=== PATIENT | female | born 1945 | race African-American/Black ===

== ENCOUNTER 2016-11-19 20:46 | Inpatient (IN) | payer MEDICARE, OTHER ==
[~2016-11-19] VITALS: Ht 160 cm; Wt 80.3 kg
[2016-11-19] MEDS ORDERED: TRAMADOL HCL50 MG ORAL (20:56)
[2016-11-19] MEDS ORDERED: FOLIC ACID1 MG ORAL (20:56)
[2016-11-19] MEDS ORDERED: TRAZODONE HCL150 MG ORAL (20:56)
[2016-11-19] MEDS ORDERED: METOPROLOL TART50 M1 ORAL (20:56)
[2016-11-19] MEDS ORDERED: PAXIL20 MG ORAL (20:56)
[2016-11-19] MEDS ORDERED: ATORVASTATIN CA80 MG ORAL (20:56)
[2016-11-19] MEDS ORDERED: GABAPENTIN300 MG ORAL (20:56)
[2016-11-19] MEDS ORDERED: DIOVAN80 MG ORAL (20:56)
[2016-11-19] MEDS ORDERED: MIRTAZAPINE15 MG ORAL (20:56)
[2016-11-19] MEDS ORDERED: SULFASALAZINE500 MG ORAL (20:56)
[2016-11-19] MEDS ORDERED: NORMODYNE200 MG ORAL (20:56)
[2016-11-19] MEDS ORDERED: ATIVAN0.5 MG ORAL (20:56)
[2016-11-19] MEDS ORDERED: ADALAT20 MG ORAL (20:56)
[2016-11-19] MEDS ORDERED: METHOTREXATE2.5 MG PO (20:56)
[2016-11-19] MEDS ORDERED: BENAZEPRIL HCL40 MG ORAL (20:56)
[2016-11-19] MEDS ORDERED: ACETAMINOPHEN325 M1 ORAL (20:56)
[2016-11-19] MEDS ORDERED: HYDRALAZINE HCL10 MG ORAL (20:56)
[2016-11-19] MEDS ORDERED: OMEPRAZOLE20 M2 ORAL (20:56)
[2016-11-19 21:06] VITALS: BP 152/112
[2016-11-19] MEDS ORDERED: Ertapenem 1 GM in NS 55 ML IV ONE (21:15)
--- NOTE | 2016-11-19 21:26 | Emergency Room Report ---
History of Present Illness General Chief Complaint: General Complaint Source: Patient, Medical Record Present Illness HPI Is a 71-year-old female who is a senior living. She has a history of CVA, A. fib on Coumadin. She presents with chief complaint of urinary tract infection. She grew out ESBL Escherichia coli that is resistant to oral medication. She's been on several courses of medication. Patient herself has dementia and history is limited. She denies any complaint. Is no fever or chills. No nausea no vomiting. Allergies: Coded Allergies: No Known Allergies (Unverified , 04/30/16) Patient History Past Medical History: see triage record, old chart reviewed, HTN, AFib Past Surgical History: other Pertinent Family History: none Social History: Denies: smoking Now: No Immunizations: UTD Reviewed Nursing Documentation: PMH: Agreed, PSxH: Agreed Nursing Documentation-PMH Hx Cardiac Problems: Yes - Endocarditis and Heart Valve disorder, A fib, TIA, HF Hx Hypertension: Yes - Hyperlipidemia Hx Gastrointestinal Problems: Yes - GERD History Of Psychiatric Problem: Yes - Major depressive disorder, psychosis, anxiety, dementia Review of Systems Eye: Denies: blurred vision, eye pain ENT: Denies: ear pain, nose congestion, throat swelling Respiratory: Denies: cough, shortness of breath Cardiovascular: Denies: chest pain, palpitations Gastrointestinal: Denies: abdominal pain, diarrhea, nausea, vomiting Musculoskeletal: Denies: back pain, joint pain Skin: Denies: rash Neurological: Denies: headache, numbness Endocrine: Denies: increased thirst, increased urine Hematologic/Lymphatic: Denies: easy bruising All Other Systems: negative except mentioned in HPI Physical Exam Vital Signs Date Time Temp Pulse Resp B/P Pulse Ox O2 Delivery O2 Flow Rate FiO2 11/19/16 20:38 97.5 80 14 160/108 95 Room Air bottles with hypertension Sp02 EP Interpretation: reviewed, normal General Appearance: well appearing, no apparent distress, alert Head: normocephalic, atraumatic Eyes: bilateral eye EOMI, bilateral eye PERRL ENT: hearing grossly normal, normal pharynx Neck: full range of motion, supple, no meningismus Respiratory: chest non-tender, lungs clear, normal breath sounds Cardiovascular #1: no murmur, irregularly irregular Gastrointestinal: normal bowel sounds, non tender, no mass, no organomegaly, no bruit, non-distended Musculoskeletal: back normal, normal range of motion Neurologic: grossly normal Psychiatric: mood/affect normal Skin: warm/dry Procedures Central Line Central Line : Consent: Verbal Central Line Lumen: triple Maximal Sterile Barrier Tech: yes cap, yes mask, yes sterile gown, yes sterile gloves, yes large sterile sheet, yes hand hygiene, yes chlorhexidine prep No Max Barrier Tech Because: other - IV access Central Line Postion: femoral (R) Anesthesia: local cc's of anesthesia: 5 Complications: none Central Line Post Position: sutured, good blood return Attempts: One Patient Tolerated: Well Complications: None Medical Decision Making Diagnostic Impression: Primary Impression: Urinary tract infection due to ESBL Klebsiella Additional Impressions: Atrial fibrillation, chronic Proteinuria Qualified Codes: R80.9 - Proteinuria, unspecified ER Course Patient with ESBL UTI. This was from a culture few days ago. I place her on Invanz. She is otherwise stable for admission. She IV antibiotics. Wanted to Dr. Ford since he admits for Dr. Solano. patient is very poor IV access. Her neck is very stiff and short. Was not comfortable try to get an IV in her neck baseline anatomy. I used an ultrasound and was able initially to get an IV in her left upper arm. It infiltrated. Because of the knee for IV antibiotics I place a right femoral triple-lumen. Patient tolerated procedure without a problem. Lab Results Impression labs unremarkable EKG Diagnostic Results EKG Time: 21:25 EP Interpretation: no Rate: normal Rhythm: other - afib ST Segments: no acute changes Rhythm Strip Diag. Results Rhythm Strip Time: 21:26 EP Interpretation: yes Rate: 85 Rhythm: no PVC's, no ectopy, other - afib Chest X-Ray Diagnostic Results Chest X-Ray Ordered: Yes # of Views/Limited/Complete: 1 View Interpretation: no consolidation, no effusion, no pneumothorax, no acute cardiopulmonary disease Indication: Chest Pain Impression: No acute disease Date Electronically Signed: Nov 19, 2016 Time Electronically Signed: 21:25 Interpreting ER Physician: Jaxon Don MD Last Vital Signs Date Time Temp Pulse Resp B/P Pulse Ox O2 Delivery O2 Flow Rate FiO2 11/19/16 21:06 70 16 152/112 Room Air 11/19/16 20:38 97.5 95 Status: improved Disposition: ADMITTED INPATIENT Condition: Serious JAXON DON M.D. Nov 19, 2016 21:26
[2016-11-19] MEDS ORDERED: Ertapenem (INVanz) Inj ONE (22:47)
[2016-11-19 23:00] VITALS: BP 165/103
[2016-11-19] MEDS ORDERED: Nitroglycerin Subl 0.4mg tab (Bottle Of 25) SL PRN (23:00)
[2016-11-19] MEDS ORDERED: DuoNeb 0.5-3(2.5)mg/3ml neb HHN PRN (23:00)
[2016-11-19] MEDS ORDERED: Morphine Sulfate 2mg/ml Inj IVP PRN (23:00)
[2016-11-19] MEDS ORDERED: Miralax 17gm pkt ORAL PRN (23:00)
[2016-11-19 23:12] LABS: BASOPHILS % (AUTO) 1.3 % (0.0-2.0); EOSINOPHILS % (AUTO) 3.6 % (0.0-3.0); LYMPHOCYTES % (AUTO) 39.8 % (20.0-45.0); MEAN CORPUSCULAR HEMOGLOBIN 27.9 PG (27.0-31.0); MEAN CORPUSCULAR VOLUME 85 FL (80-99); MEAN PLATELET VOLUME 7.5 FL (6.5-10.1); MONOCYTES % (AUTO) 8.3 % (1.0-10.0); PLATELET COUNT 222 K/UL (150-450); RED BLOOD COUNT 4.86 M/UL (4.20-5.40); RED CELL DISTRIBUTION WIDTH 15.3 % (11.6-14.8); WHITE BLOOD COUNT 5.6 K/UL (4.8-10.8)
[2016-11-19 23:23] LABS: INR 2.7 (0.9-1.1); PROTHROMBIN TIME 28.1 SEC (9.30-11.50)
[2016-11-19 23:24] LABS: TROPONIN I < 0.30 ng/mL (<=0.30)
[2016-11-19 23:27] LABS: ALANINE AMINOTRANSFERASE 24 U/L (3-33); ALBUMIN/GLOBULIN RATIO 0.4 (1.0-2.7); ANION GAP 15 (5-15); ASPARTATE AMINO TRANSFERASE 45 U/L (5-40); CALCIUM 8.6 mg/dL (8.6-10.2); CARBON DIOXIDE 25 mEQ/L (20-30); CHLORIDE 98 mEQ/L (98-107); CREATININE 0.8 mg/dL (0.5-0.9); HEMOLYSIS 3; POTASSIUM 3.8 mEQ/L (3.4-4.9); SODIUM 138 mEQ/L (135-145); TOTAL PROTEIN 8.1 g/dL (6.6-8.7)
[2016-11-19 23:38] LABS: CKMB < 1.5 ng/mL (< 3.8)
[2016-11-20] VITALS (8 sets, daily range): BP systolic 110–161; BP diastolic 68–101
[2016-11-20 00:17] LABS: KETONES,URINE NEGATIVE (NEGATIVE); LEUKOCYTE ESTERASE ,URINE 2+ (NEGATIVE); NITRITE,URINE NEGATIVE (NEGATIVE); PH,URINE 6 (4.5-8.0); PROTEIN,URINE 3+ (NEGATIVE); UROBILINOGEN,URINE NORMAL MG/DL (0.0-1.0)
[2016-11-20 00:18] LABS: APPEARANCE,URINE SLIGHTLY CLOUDY
[2016-11-20 00:31] LABS: BACTERIA,URINE FEW /HPF; RBC,URINE TNTC /HPF (0 - 2); SQUAMOUS EPITHELIAL CELL,UR FEW /LPF (NONE/OCC)
[2016-11-20] MEDS: Labetalol 200mg tab ORAL SCH ×4 (02:27→18:46)
[2016-11-20] MEDS: HydrALAZINE 10mg Tab ORAL SCH ×4 (02:27→18:46)
[2016-11-20] MEDS ORDERED: SulfASALAZine 500MG tab ORAL SCH (06:30)
[2016-11-20 07:30] LABS: BASOPHILS % (AUTO) 0.7 % (0.0-2.0); EOSINOPHILS % (AUTO) 3.1 % (0.0-3.0); MEAN CORPUSCULAR HEMOGLOBIN 28.5 PG (27.0-31.0); MEAN CORPUSCULAR HGB CONC 33.2 G/DL (32.0-36.0); MEAN CORPUSCULAR VOLUME 86 FL (80-99); MEAN PLATELET VOLUME 7.3 FL (6.5-10.1); MONOCYTES % (AUTO) 8.3 % (1.0-10.0); NEUTROPHILS % (AUTO) 47.9 % (45.0-75.0); PLATELET COUNT 214 K/UL (150-450); RED BLOOD COUNT 4.66 M/UL (4.20-5.40); RED CELL DISTRIBUTION WIDTH 15.6 % (11.6-14.8); WHITE BLOOD COUNT 6.8 K/UL (4.8-10.8)
[2016-11-20] MEDS: Metoprolol 50mg tab ORAL SCH ×2 (09:00→22:44)
[2016-11-20] MEDS ORDERED: Heparin 5000 units/ml inj SUBQ SCH (09:00)
--- NOTE | 2016-11-20 10:25 | Diagnostic Imaging Report ---
Indications: Cough Technique: Portable AP chest Findings: Comparison: None Inspiratory effort is suboptimal. Cardiac silhouette enlarged. Early calcification overlies left side of heart. Pulmonary vasculature within normal limits. Visualized portions of lungs and pleura clear. Thoracic aorta calcified, elongated, ectatic. Disc marginal osteophytes in thoracic, upper lumbar spine. Bilateral humeral heads subluxed cephalad, narrowing the subacromial spaces with chronic remodeling deformity. Left glenohumeral joint is narrowed with marginal osteophyte formation. Moderate gaseous distention of stomach. IMPRESSION: No evidence of acute cardiopulmonary disease, limited as described. Basal abnormalities may be missed. Upright PA and lateral chest radiographs with better inspiratory effort and optimal technique recommended for more complete evaluation. Cardiomegaly suggests cardiomyopathy. Evidence of associated mitral valvular versus annular calcification. Underlying pericardial effusion not excludable. Aortosclerosis and probable chronic hypertensive change. Associated aneurysm not excludable. Degenerative spondylosis Left glenohumeral degenerative arthropathy Chronic insufficiency bilateral rotator cuff Nonspecific gaseous distention of stomach. Consider nasogastric tube placement as clinically indicated.
[2016-11-20] MEDS: Meropenem 1 GM in NS 110 ML IVPB SCH ×2 (10:26→22:43)
[2016-11-20 11:37] LABS: ALANINE AMINOTRANSFERASE 29 U/L (3-33); ALBUMIN/GLOBULIN RATIO 0.4 (1.0-2.7); ANION GAP 15 (5-15); ASPARTATE AMINO TRANSFERASE 51 U/L (5-40); CALCIUM 8.5 mg/dL (8.6-10.2); CARBON DIOXIDE 23 mEQ/L (20-30); CHLORIDE 101 mEQ/L (98-107); CREATININE 0.8 mg/dL (0.5-0.9); HEMOLYSIS 3; POTASSIUM 3.7 mEQ/L (3.4-4.9); SODIUM 139 mEQ/L (135-145); TOTAL PROTEIN 7.3 g/dL (6.6-8.7)
--- NOTE | 2016-11-20 15:16 | History and Physical ---
History of Present Illness General Date patient seen: Nov 20, 2016 Reason for Hospitalization: General Complaint Present Illness HPI 71-year-old female with hx of Depression, dementia, HTN , Afib, CVA [facility] presented with chief complaint of urinary tract infection. She grew out ESBL Escherichia coli that is resistant to oral medication. She's been on several courses of medication. Patient herself has dementia and history is limited. She denies any complaint. Is no fever or chills. No nausea no vomiting. She is admitted for treatment of MDR, refractory Urosepsis. Allergies: Coded Allergies: No Known Allergies (Unverified , 04/30/16) Medication History Scheduled Atorvastatin Calcium* (Lipitor*), 80 MG ORAL BEDTIME, (Reported) Benazepril Hcl* (Benazepril Hcl*), 40 MG ORAL TWICE A DAY, (Reported) Folic Acid* (Folic Acid*), 1 MG ORAL DAILY, (Reported) Gabapentin* (Gabapentin*), 300 MG ORAL DAILY, (Reported) Hydralazine Hcl* (Hydralazine Hcl*), 10 MG ORAL EVERY 6 HOURS, (Reported) Labetalol HCl (Labetalol HCl), 200 MG ORAL Q6HR, (Reported) Lorazepam* (Ativan*), 0.5 MG ORAL THREE TIMES A DAY, (Reported) Metoprolol Tartrate* (Metoprolol Tartrate*), 50 MG ORAL EVERY 12 HOURS, ( Reported) Mirtazapine* (Remeron*), 15 MG ORAL BEDTIME, (Reported) Nifedipine (Nifedipine*), 30 MG ORAL EVERY 12 HOURS, (Reported) Omeprazole (Omeprazole), 20 MG ORAL DAILY, (Reported) Paroxetine Hcl* (Paxil*), 20 MG ORAL DAILY, (Reported) Sulfasalazine* (Azulfidine*), 500 MG ORAL BEFORE MEALS, (Reported) Trazodone* (Trazodone*), 12.5 MG ORAL BEDTIME, (Reported) Valsartan (Diovan), 80 MG ORAL DAILY, (Reported) Scheduled PRN Acetaminophen* (Acetaminophen 325MG Tablet*), 650 MG ORAL Q4H PRN for For Pain, (Reported) Tramadol Hcl* (Ultram*), 50 MG ORAL Q4HR PRN for For Pain, (Reported) Miscellaneous Medications Methotrexate Sodium* (Methotrexate*), 2.5 MG PO, (Reported) Patient History Healthcare decision maker Isiah Jimmy Resuscitation status Full Code Advanced Directive on File Past Medical/Surgical History Past Medical/Surgical History: (1) HTN (hypertension) (2) Dementia (3) Depression (4) Atrial fibrillation, chronic Review of Systems All Other Systems: negative except mentioned in HPI Physical Exam General Appearance: WD/WN Lines, tubes and drains: peripheral HEENT: normocephalic, atraumatic Neck: non-tender, normal alignment Respiratory/Chest: chest wall non-tender, lungs clear, normal breath sounds Breasts: no masses Cardiovascular/Chest: normal peripheral pulses Abdomen: normal bowel sounds Genitourinary/Rectal: normal genital exam Extremities: normal range of motion Skin Exam: normal pigmentation Last 24 Hour Vital Signs Date Time Temp Pulse Resp B/P Pulse Ox O2 Delivery O2 Flow Rate FiO2 11/20/16 13:04 70 147/86 11/20/16 13:04 147/86 11/20/16 12:21 97.7 70 16 147/86 97 Room Air 11/20/16 09:04 110/73 11/20/16 09:00 83 110/73 11/20/16 08:38 97.5 83 14 110/73 100 Room Air 11/20/16 07:32 87 18 Room Air 11/20/16 05:47 77 161/99 11/20/16 05:47 161/99 11/20/16 04:00 97.0 77 19 161/99 95 Room Air 11/20/16 02:27 78 155/92 11/20/16 02:27 155/92 11/20/16 02:17 97.2 78 18 155/92 100 Room Air 11/20/16 01:31 86 16 150/96 98 Room Air 11/20/16 01:10 98.7 86 16 150/96 98 Room Air 11/20/16 00:00 86 15 141/101 97 Room Air 11/19/16 23:00 73 15 165/103 99 Room Air 11/19/16 21:06 70 16 152/112 Room Air 11/19/16 20:38 97.5 80 14 160/108 95 Room Air Intake and Output 11/19/16 11/20/16 19:00 07:00 Intake Total 0 ml Output Total 500 ml Balance -500 ml Intake Oral 0 ml Output Urine Total 500 ml Laboratory Tests Test 11/19/16 22:30 11/19/16 23:50 11/20/16 05:00 11/20/16 11:10 White Blood Count 5.6 K/UL (4.8-10.8) 6.8 K/UL (4.8-10.8) Red Blood Count 4.86 M/UL (4.20-5.40) 4.66 M/UL (4.20-5.40) Hemoglobin 13.6 G/DL (12.0-16.0) 13.3 G/DL (12.0-16.0) Hematocrit 41.2 % (37.0-47.0) 40.0 % (37.0-47.0) Mean Corpuscular Volume 85 FL (80-99) 86 FL (80-99) Mean Corpuscular Hemoglobin 27.9 PG (27.0-31.0) 28.5 PG (27.0-31.0) Mean Corpuscular Hemoglobin Concent 33.0 G/DL (32.0-36.0) 33.2 G/DL (32.0-36.0) Red Cell Distribution Width 15.3 % (11.6-14.8) H 15.6 % (11.6-14.8) H Platelet Count 222 K/UL (150-450) 214 K/UL (150-450) Mean Platelet Volume 7.5 FL (6.5-10.1) 7.3 FL (6.5-10.1) Neutrophils (%) (Auto) 47.0 % (45.0-75.0) 47.9 % (45.0-75.0) Lymphocytes (%) (Auto) 39.8 % (20.0-45.0) 40.0 % (20.0-45.0) Monocytes (%) (Auto) 8.3 % (1.0-10.0) 8.3 % (1.0-10.0) Eosinophils (%) (Auto) 3.6 % (0.0-3.0) H 3.1 % (0.0-3.0) H Basophils (%) (Auto) 1.3 % (0.0-2.0) 0.7 % (0.0-2.0) Prothrombin Time 28.1 SEC (9.30-11.50) H Prothromb Time International Ratio 2.7 (0.9-1.1) H Activated Partial Thromboplast Time 43 SEC (23-33) H Sodium Level 138 mEQ/L (135-145) 139 mEQ/L (135-145) Potassium Level 3.8 mEQ/L (3.4-4.9) 3.7 mEQ/L (3.4-4.9) Chloride Level 98 mEQ/L (98-107) 101 mEQ/L (98-107) Carbon Dioxide Level 25 mEQ/L (20-30) 23 mEQ/L (20-30) Anion Gap 15 (5-15) 15 (5-15) Blood Urea Nitrogen 19 mg/dL (7-23) 16 mg/dL (7-23) Creatinine 0.8 mg/dL (0.5-0.9) 0.8 mg/dL (0.5-0.9) Estimat Glomerular Filtration Rate mL/min (>60) mL/min (>60) Glucose Level 122 mg/dL (74-106) H 104 mg/dL (74-106) Lactic Acid Level 1.20 mmol/L (0.66-2.22) Calcium Level 8.6 mg/dL (8.6-10.2) 8.5 mg/dL (8.6-10.2) L Total Bilirubin < 0.2 mg/dL (0.0-1.2) < 0.2 mg/dL (0.0-1.2) Aspartate Amino Transf (AST/SGOT) 45 U/L (5-40) H 51 U/L (5-40) H Alanine Aminotransferase (ALT/SGPT) 24 U/L (3-33) 29 U/L (3-33) Alkaline Phosphatase 222 U/L (35-104) H 226 U/L (35-104) H Total Creatine Kinase 38 U/L (26-140) Creatine Kinase MB < 1.5 ng/mL (< 3.8) Creatine Kinase MB Relative Index 3.9 Troponin I < 0.30 ng/mL (<=0.30) Total Protein 8.1 g/dL (6.6-8.7) 7.3 g/dL (6.6-8.7) Albumin 2.6 g/dL (3.5-5.2) L 2.4 g/dL (3.5-5.2) L Globulin 5.5 g/dL 4.9 g/dL Albumin/Globulin Ratio 0.4 (1.0-2.7) L 0.4 (1.0-2.7) L Urine Color Yellow Urine Appearance Slightly cloudy Urine pH 6 (4.5-8.0) Urine Specific [place] 1.015 (1.005-1.035) Urine Protein 3+ (NEGATIVE) H Urine Glucose (UA) Negative (NEGATIVE) Urine Ketones Negative (NEGATIVE) Urine Occult Blood 5+ (NEGATIVE) H Urine Nitrite Negative (NEGATIVE) Urine Bilirubin Negative (NEGATIVE) Urine Urobilinogen Normal MG/DL (0.0-1.0) Urine Leukocyte Esterase 2+ (NEGATIVE) H Urine RBC Tntc /HPF (0 - 2) H Urine WBC 10-15 /HPF (0 - 2) H Urine Squamous Epithelial Cells Few /LPF (NONE/OCC) Urine Bacteria Few /HPF (NONE) Height (Feet): 5 Height (Inches): 3.00 Weight (Pounds): 177 Medications Current Medications Medications (Trade) Dose Ordered Sig/Renea Route PRN Reason Start Time Stop Time Status Last Admin Dose Admin Acetaminophen (Tylenol) 650 mg Q4H PRN ORAL fever 11/19/16 23:00 12/19/16 22:59 Albuterol/ Ipratropium (DuoNeb 0.5-3(2.5)mg/3ml) 3 ml EVERY 4 HOURS PRN HHN Shortness of Breath 11/19/16 23:00 11/24/16 22:59 Atorvastatin Calcium (Lipitor) 80 mg BEDTIME ORAL 11/20/16 21:00 12/20/16 20:59 Benazepril HCl (Lotensin) 40 mg TWICE A DAY ORAL 11/20/16 09:00 12/20/16 08:59 11/20/16 09:04 Gabapentin (Neurontin) 300 mg DAILY ORAL 11/20/16 09:00 12/20/16 08:59 11/20/16 09:03 Hydralazine HCl (Apresoline) 10 mg EVERY 6 HOURS ORAL 11/20/16 00:00 12/20/16 00:00 11/20/16 13:04 Labetalol HCl (Normodyne) 200 mg Q6HR ORAL 11/20/16 00:00 12/20/16 00:00 11/20/16 13:04 Meropenem/Sodium Chloride (Merrem/Sodium Chloride) 110 ml @ 220 mls/hr Q12H IVPB 11/20/16 09:00 11/25/16 08:59 11/20/16 10:26 Metoprolol Tartrate (Lopressor) 50 mg EVERY 12 HOURS ORAL 11/20/16 09:00 12/20/16 08:59 Mirtazapine (Remeron) 15 mg BEDTIME ORAL 11/20/16 21:00 12/20/16 20:59 Morphine Sulfate (Morphine Sulfate) 2 mg EVERY 4 HOURS PRN IVP Moderate Pain (Pain Scale 4-6) 11/19/16 23:00 11/26/16 22:59 Nitroglycerin 0.4 mg 0.4 mg Every 5 Minutes PRN SL Prn Chest Pain 11/19/16 23:00 12/19/16 22:59 Ondansetron HCl (Zofran) 4 mg Q6H PRN IVP Nausea & Vomiting 11/19/16 23:00 12/19/16 22:59 Polyethylene Glycol (Miralax) 17 gm DAILYPRN PRN ORAL Constipation 11/19/16 23:00 12/19/16 22:59 Temazepam (Restoril) 15 mg HSPRN PRN ORAL Insomnia 11/19/16 23:00 11/26/16 22:59 Trazodone HCl (Desyrel) 12.5 mg BEDTIME ORAL 11/20/16 21:00 12/20/16 20:59 Assessment/Plan Problem List: (1) Urinary tract infection due to ESBL Klebsiella ICD Codes: N39.0 - Urinary tract infection, site not specified; B96.89 - Other specified bacterial agents as the cause of diseases classified elsewhere SNOMED: 904415483 (2) Atrial fibrillation, chronic ICD Codes: I48.2 - Chronic atrial fibrillation SNOMED: 021166518 (3) Dementia ICD Codes: F03.90 - Unspecified dementia without behavioral disturbance SNOMED: 46555340 (4) Depression ICD Codes: F32.9 - Major depressive disorder, single episode, unspecified SNOMED: 62046242 (5) HTN (hypertension) ICD Codes: I10 - Essential (primary) hypertension SNOMED: 22560944 Assessment/Plan IV antibiotics check cultures coumadin by pharmacy psych evaluation for dementia and depression MAURICIO WILDE Nov 20, 2016 15:16
[2016-11-20] MEDS ORDERED: NS 275ml ONE (16:38)
[2016-11-20] MEDS ORDERED: TraZODone HCl 25 mg tablet ORAL SCH (21:00)
[2016-11-20] MEDS: Atorvastatin 80mg tab ORAL SCH (22:44)
[2016-11-21] VITALS: BP 124/90
[2016-11-21] MEDS: Labetalol 200mg tab ORAL SCH ×4 (01:10→18:28)
[2016-11-21] MEDS: HydrALAZINE 10mg Tab ORAL SCH ×4 (01:11→18:28)
[2016-11-21 04:00] VITALS: BP 122/78
[2016-11-21 08:19] VITALS: BP 121/67
[2016-11-21] MEDS: Metoprolol 50mg tab ORAL SCH ×2 (09:00→20:31)
[2016-11-21] MEDS: Meropenem 1 GM in NS 110 ML IVPB SCH ×2 (09:52→20:30)
[2016-11-21 11:12] VITALS: BP 134/84
--- NOTE | 2016-11-21 13:05 | Pulmonology Progress Note ---
Assessment/Plan Problems: (1) Urinary tract infection due to ESBL Klebsiella (2) Atrial fibrillation, chronic (3) Dementia (4) Depression (5) HTN (hypertension) Assessment/Plan continue abx check cultures check labs dvt prophylaxis Subjective Interval Events: no new complains Allergies: Coded Allergies: No Known Allergies (Unverified , 04/30/16) Objective Last 24 Hour Vital Signs Date Time Temp Pulse Resp B/P Pulse Ox O2 Delivery O2 Flow Rate FiO2 11/21/16 12:31 134/84 11/21/16 12:30 77 134/84 11/21/16 11:12 97.3 77 16 134/84 98 Room Air 11/21/16 09:00 95 121/67 11/21/16 09:00 121/67 11/21/16 08:21 89 18 Room Air 11/21/16 08:19 97.6 95 18 121/67 99 Room Air 11/21/16 05:35 101 122/78 11/21/16 05:34 122/78 11/21/16 04:00 96.6 101 18 122/78 100 Room Air 11/21/16 01:11 124/90 11/21/16 01:10 101 124/90 11/21/16 00:00 98.8 101 18 124/90 100 Room Air 11/20/16 22:44 99 134/92 11/20/16 20:16 74 16 Room Air 11/20/16 20:00 97.7 105 18 134/92 99 Room Air 11/20/16 18:46 70 127/68 11/20/16 18:46 127/68 11/20/16 18:45 127/68 11/20/16 16:04 98.6 70 16 127/68 100 Room Air 11/20/16 13:04 70 147/86 11/20/16 13:04 147/86 Intake and Output 11/20/16 11/21/16 19:00 07:00 Intake Total 1000 ml Output Total 150 ml 350 ml Balance 850 ml -350 ml Intake Oral 1000 ml Output Urine Total 150 ml 350 ml # Bowel Movements 1 General Appearance: WD/WN, no acute distress Respiratory/Chest: chest wall non-tender, lungs clear Cardiovascular: normal peripheral pulses, normal rate Genitourinary: normal external genitalia Extremities: no cyanosis Neurologic/Psychiatric: oriented x 3 Lymphatic: no neck adenopathy, no groin adenopathy Microbiology Date/Time Source Procedure Growth Status 11/19/16 22:50 Blood Blood Culture - Preliminary NO GROWTH AFTER 24 HOURS Resulted 11/19/16 22:35 Blood Blood Culture - Preliminary NO GROWTH AFTER 24 HOURS Resulted 11/19/16 23:50 Urine,Clean Catch Urine Culture - Preliminary NO GROWTH AFTER 24 HOURS Resulted Current Medications Medications (Trade) Dose Ordered Sig/Renea Route PRN Reason Start Time Stop Time Status Last Admin Dose Admin Acetaminophen (Tylenol) 650 mg Q4H PRN ORAL fever 11/19/16 23:00 12/19/16 22:59 Albuterol/ Ipratropium (DuoNeb 0.5-3(2.5)mg/3ml) 3 ml EVERY 4 HOURS PRN HHN Shortness of Breath 11/19/16 23:00 11/24/16 22:59 Atorvastatin Calcium (Lipitor) 80 mg BEDTIME ORAL 11/20/16 21:00 12/20/16 20:59 11/20/16 22:44 Benazepril HCl (Lotensin) 40 mg TWICE A DAY ORAL 11/20/16 09:00 12/20/16 08:59 11/21/16 09:00 Gabapentin (Neurontin) 300 mg DAILY ORAL 11/20/16 09:00 12/20/16 08:59 11/21/16 09:00 Hydralazine HCl (Apresoline) 10 mg EVERY 6 HOURS ORAL 11/20/16 00:00 12/20/16 00:00 11/21/16 12:31 Labetalol HCl (Normodyne) 200 mg Q6HR ORAL 11/20/16 00:00 12/20/16 00:00 11/21/16 12:30 Meropenem/Sodium Chloride (Merrem/Sodium Chloride) 110 ml @ 220 mls/hr Q12H IVPB 11/20/16 09:00 11/25/16 08:59 11/21/16 09:52 Metoprolol Tartrate (Lopressor) 50 mg EVERY 12 HOURS ORAL 11/20/16 09:00 12/20/16 08:59 11/21/16 09:00 Mirtazapine (Remeron) 15 mg BEDTIME ORAL 11/20/16 21:00 12/20/16 20:59 11/20/16 22:44 Morphine Sulfate (Morphine Sulfate) 2 mg EVERY 4 HOURS PRN IVP Moderate Pain (Pain Scale 4-6) 11/19/16 23:00 11/26/16 22:59 Nitroglycerin 0.4 mg 0.4 mg Every 5 Minutes PRN SL Prn Chest Pain 11/19/16 23:00 12/19/16 22:59 Ondansetron HCl (Zofran) 4 mg Q6H PRN IVP Nausea & Vomiting 11/19/16 23:00 12/19/16 22:59 Polyethylene Glycol (Miralax) 17 gm DAILYPRN PRN ORAL Constipation 11/19/16 23:00 12/19/16 22:59 Temazepam (Restoril) 15 mg HSPRN PRN ORAL Insomnia 11/19/16 23:00 11/26/16 22:59 Trazodone HCl (Desyrel) 12.5 mg BEDTIME ORAL 11/20/16 21:00 12/20/16 20:59 11/20/16 22:44 MAURICIO WILDE Nov 21, 2016 13:05
[2016-11-21 16:08] VITALS: BP 121/56
[2016-11-21 20:00] VITALS: BP 141/109
[2016-11-21] MEDS: Atorvastatin 80mg tab ORAL SCH (20:31)
--- NOTE | 2016-11-21 23:00 | Progress Note ---
DATE: 11/21/2016 SUBJECTIVE: The patient is stable at baseline. No behavior issues. Presents with anxiety. MENTAL STATUS EXAMINATION: The patient was awake and cooperative. No agitation. No suicidal or homicidal ideation. Cognition is impaired. ASSESSMENT: 1. Major depressive disorder. 2. Dementia. PLAN: 1. The patient will be continued on Remeron 15 mg at bedtime. 2. We will continue to follow and readjust the medications. Kunal Tse M.D. DR: ZEKE JOB#: [id number] CC:
[2016-11-22] VITALS: BP 136/77
[2016-11-22] MEDS: HydrALAZINE 10mg Tab ORAL SCH ×4 (00:25→17:57)
[2016-11-22] MEDS: Labetalol 200mg tab ORAL SCH ×4 (00:26→17:57)
--- NOTE | 2016-11-22 01:00 | Consultation ---
DATE OF CONSULTATION: 11/20/2016 HISTORY OF PRESENT ILLNESS: This is a 71-year-old female with a history of depression, dementia, UTI, and hypertension, who has been admitted to the hospital for treatment of urinary tract infection. During the evaluation, the patient is denying any depressive symptoms, however, endorsing anxiety and insomnia, has difficulty falling sleep. I think she has much on her mind. She also endorses impairment in concentration, memory, and attention. PAST PSYCHIATRIC HISTORY: Diagnosed with depression as well as dementia. She has been treated with Paxil and Ativan. Past psychiatric history, no psychiatric hospitalization. No suicide attempts. PAST MEDICAL HISTORY: Significant for CVA, atrial fibrillation on Coumadin, urinary tract infection. ALLERGIES: There is no known drug allergies. SUBSTANCE ABUSE HISTORY: No history of illicit drug use or alcohol. MENTAL STATUS EXAMINATION: The patient was alert and awake. Mood was dysphoric. Affect was constricted. Congruent mood. Thought process was concrete. Thought content, no suicidal or homicidal ideation. Cognition is impaired. ASSESSMENT: AXIS I Major depressive disorder and dementia. AXIS II Deferred. AXIS III As above. AXIS IV Moderate. AXIS V Global assessment of functioning is 25. PLAN: 1. Will change the Paxil from the day time to night time. 2. We will discontinue the Paxil, trazodone, and temazepam. 3. We will continue to mirtazapine 50 milligram at bedtime. 4. We will continue to follow and monitor her symptoms. Kunal Tse M.D. DR: Justice JOB#: [id number] CC:
[2016-11-22 04:00] VITALS: BP 120/90
[2016-11-22 07:38] LABS: BASOPHILS % (AUTO) 0.8 % (0.0-2.0); EOSINOPHILS % (AUTO) 9.1 % (0.0-3.0); LYMPHOCYTES % (AUTO) 37.5 % (20.0-45.0); MEAN CORPUSCULAR HEMOGLOBIN 28.2 PG (27.0-31.0); MEAN CORPUSCULAR HGB CONC 32.8 G/DL (32.0-36.0); MEAN CORPUSCULAR VOLUME 86 FL (80-99); MEAN PLATELET VOLUME 7.2 FL (6.5-10.1); MONOCYTES % (AUTO) 9.2 % (1.0-10.0); NEUTROPHILS % (AUTO) 43.5 % (45.0-75.0); PLATELET COUNT 186 K/UL (150-450); RED CELL DISTRIBUTION WIDTH 15.5 % (11.6-14.8); WHITE BLOOD COUNT 4.8 K/UL (4.8-10.8)
[2016-11-22 07:58] LABS: ALANINE AMINOTRANSFERASE 25 U/L (3-33); ALBUMIN/GLOBULIN RATIO 0.5 (1.0-2.7); ANION GAP 10 (5-15); ASPARTATE AMINO TRANSFERASE 53 U/L (5-40); CALCIUM 8.6 mg/dL (8.6-10.2); CARBON DIOXIDE 28 mEQ/L (20-30); CHLORIDE 102 mEQ/L (98-107); CREATININE 0.8 mg/dL (0.5-0.9); HEMOLYSIS 1; MAGNESIUM 1.7 mg/dL (1.7-2.5); PHOSPHORUS 2.9 mg/dL (2.5-4.8); POTASSIUM 3.9 mEQ/L (3.4-4.9); SODIUM 140 mEQ/L (135-145); TOTAL PROTEIN 7.3 g/dL (6.6-8.7)
[2016-11-22 08:38] VITALS: BP 143/90
[2016-11-22] MEDS: Meropenem 1 GM in NS 110 ML IVPB SCH ×2 (09:15→20:49)
[2016-11-22] MEDS: Metoprolol 50mg tab ORAL SCH ×2 (09:15→20:50)
[2016-11-22 12:00] VITALS: BP 127/97
[2016-11-22 16:11] VITALS: BP 139/91
--- NOTE | 2016-11-22 17:55 | Pulmonology Progress Note ---
Assessment/Plan Problems: (1) Urinary tract infection due to ESBL Klebsiella (2) Atrial fibrillation, chronic (3) Dementia (4) Depression (5) HTN (hypertension) Assessment/Plan continue abx check cultures, still pending check labs ID consult pending dvt prophylaxis Subjective ROS Limited/Unobtainable: No Constitutional: Reports: no symptoms HEENT: Repors: no symptoms Respiratory: Reports: no symptoms Cardiovascular: Reports: no symptoms Allergies: Coded Allergies: No Known Allergies (Unverified , 04/30/16) Objective Last 24 Hour Vital Signs Date Time Temp Pulse Resp B/P Pulse Ox O2 Delivery O2 Flow Rate FiO2 11/22/16 16:11 97.7 70 18 139/91 100 Room Air 11/22/16 13:01 90 143/79 11/22/16 13:01 143/79 11/22/16 12:00 97.4 78 19 127/97 100 Room Air 11/22/16 09:15 90 143/90 11/22/16 09:15 143/90 11/22/16 08:38 97.4 90 18 143/90 99 Room Air 11/22/16 07:30 90 18 Room Air 21 11/22/16 05:31 72 132/90 11/22/16 05:31 132/90 11/22/16 04:00 97.0 61 18 120/90 100 Room Air 11/22/16 01:00 79 18 Room Air 11/22/16 00:26 72 136/77 11/22/16 00:25 136/77 11/22/16 00:00 97.7 72 18 136/77 100 Room Air 11/21/16 20:31 77 141/109 11/21/16 20:00 97.7 77 18 141/109 99 Room Air 11/21/16 18:28 70 121/56 11/21/16 18:28 121/56 11/21/16 18:28 121/56 Intake and Output 11/21/16 11/22/16 19:00 07:00 Intake Total 1120 ml 110 ml Output Total 200 ml 425 ml Balance 920 ml -315 ml Intake Oral 900 ml IV Total 220 ml 110 ml Output Urine Total 200 ml 425 ml # Bowel Movements 1 1 General Appearance: WD/WN HEENT: normocephalic, atraumatic Respiratory/Chest: chest wall non-tender, lungs clear Cardiovascular: normal peripheral pulses, normal rate Abdomen: normal bowel sounds, soft, non tender Genitourinary: normal external genitalia 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 Complete 11/21/16 04:00 Indwelling Cath Urine Culture - Preliminary NO GROWTH Resulted 11/19/16 23:50 Urine,Clean Catch Urine Culture - Final NO GROWTH AFTER 48 HOURS Complete Laboratory Tests 11/22/16 06:00: White Blood Count 4.8, Red Blood Count 4.10L, Hemoglobin 11.6L, Hematocrit 35.3L , Mean Corpuscular Volume 86, Mean Corpuscular Hemoglobin 28.2, Mean Corpuscular Hemoglobin Concent 32.8, Red Cell Distribution Width 15.5H, Platelet Count 186, Mean Platelet Volume 7.2, Neutrophils (%) (Auto) 43.5L, Lymphocytes (%) (Auto) 37.5, Monocytes (%) (Auto) 9.2, Eosinophils (%) (Auto) 9.1H, Basophils (%) (Auto) 0.8, Sodium Level 140, Potassium Level 3.9, Chloride Level 102, Carbon Dioxide Level 28, Anion Gap 10, Blood Urea Nitrogen 20, Creatinine 0.8, Estimat Glomerular Filtration Rate , Glucose Level 76, Calcium Level 8.6, Phosphorus Level 2.9, Magnesium Level 1.7, Total Bilirubin 0.3, Aspartate Amino Transf (AST/SGOT) 53H, Alanine Aminotransferase (ALT/SGPT) 25, Alkaline Phosphatase 204H, Total Protein 7.3, Albumin 2.6L, Globulin 4.7, Albumin/Globulin Ratio 0.5L Current Medications Medications (Trade) Dose Ordered Sig/Renea Route PRN Reason Start Time Stop Time Status Last Admin Dose Admin Acetaminophen (Tylenol) 650 mg Q4H PRN ORAL fever 11/19/16 23:00 12/19/16 22:59 Albuterol/ Ipratropium (DuoNeb 0.5-3(2.5)mg/3ml) 3 ml EVERY 4 HOURS PRN HHN Shortness of Breath 11/19/16 23:00 11/24/16 22:59 Atorvastatin Calcium (Lipitor) 80 mg BEDTIME ORAL 11/20/16 21:00 12/20/16 20:59 11/21/16 20:31 Benazepril HCl (Lotensin) 40 mg TWICE A DAY ORAL 11/20/16 09:00 12/20/16 08:59 11/22/16 09:15 Gabapentin (Neurontin) 300 mg DAILY ORAL 11/20/16 09:00 12/20/16 08:59 11/22/16 09:15 Hydralazine HCl (Apresoline) 10 mg EVERY 6 HOURS ORAL 11/20/16 00:00 12/20/16 00:00 11/22/16 13:01 Labetalol HCl (Normodyne) 200 mg Q6HR ORAL 11/20/16 00:00 12/20/16 00:00 11/22/16 13:01 Meropenem/Sodium Chloride (Merrem/Sodium Chloride) 110 ml @ 220 mls/hr Q12H IVPB 11/20/16 09:00 11/25/16 08:59 11/22/16 09:15 Metoprolol Tartrate (Lopressor) 50 mg EVERY 12 HOURS ORAL 11/20/16 09:00 12/20/16 08:59 11/22/16 09:15 Mirtazapine (Remeron) 15 mg BEDTIME ORAL 11/20/16 21:00 12/20/16 20:59 11/21/16 20:31 Morphine Sulfate (Morphine Sulfate) 2 mg EVERY 4 HOURS PRN IVP Moderate Pain (Pain Scale 4-6) 11/19/16 23:00 11/26/16 22:59 Nitroglycerin 0.4 mg 0.4 mg Every 5 Minutes PRN SL Prn Chest Pain 11/19/16 23:00 12/19/16 22:59 Ondansetron HCl (Zofran) 4 mg Q6H PRN IVP Nausea & Vomiting 11/19/16 23:00 12/19/16 22:59 Polyethylene Glycol (Miralax) 17 gm DAILYPRN PRN ORAL Constipation 11/19/16 23:00 12/19/16 22:59 MAURICIO WILDE Nov 22, 2016 17:55
[2016-11-22] MEDS ORDERED: NS 550ML IV ONE (18:05)
[2016-11-22] MEDS: Atorvastatin 80mg tab ORAL SCH (20:49)
--- NOTE | 2016-11-22 21:47 | Consultation ---
Consult Note Consult Note ID Dic # [id number] KIKE HUDSON M.D. Nov 22, 2016 21:47
[2016-11-23] VITALS: BP 141/88
--- NOTE | 2016-11-23 | Consultation ---
DATE OF CONSULTATION: INFECTIOUS DISEASE CONSULTATION: REFERRING PHYSICIAN: Arleth Ford M.D. REASON FOR CONSULTATION: Evaluation of patient for urinary tract infection due to ESBL E. coli. HISTORY OF PRESENT ILLNESS: The patient is a 71-year-old female with multiple medical problems as listed below, who was transferred to this medical center from longterm due to ESBL E. coli urinary tract infection in the urine culture from 11/13/2016. Apparently, the patient has multiple urinary tract infection treatment. The patient has been failed. Infectious Disease consultation has been requested for further evaluation of the patient's antibiotic management. The patient denies of having any fever, chills, or dysuria. PAST MEDICAL HISTORY: 1. History of CVA. 2. Dementia. 3. Hypertension. 4. Urinary tract infection. 5. History of depression. ALLERGIES: No known drug allergy. SOCIAL HISTORY: The patient does not smoke. FAMILY HISTORY: Unavailable. REVIEW OF SYSTEMS: HEENT: No recent change in vision or hearing. Pulmonary: No cough. Cardiovascular: No chest pain. Gastrointestinal/Abdomen: No nausea or vomiting. Genitourinary: No dysuria. PHYSICAL EXAMINATION: VITAL SIGNS: temperature 96.2 degrees, pulse 86, and blood pressure 166/110. HEENT: Mild pale conjunctivae. No icterus. NECK: No lymphadenopathy. CHEST: Clear. HEART: S1 and S2. ABDOMEN: Soft and nontender. EXTREMITIES: No cyanosis. NEUROLOGIC: Awake. LABORATORY AND DIAGNOSTIC DATA: White blood cells 4.8, hemoglobin 11.6, and platelets 186,000. UA too numerous to count blood cells and 10-15 blood cells. BUN 30 and creatinine 0.8. Urine culture is pending. From 11/19/2016, urine culture no growth. Blood culture, no growth. Chest x-ray no evidence of acute cardiopulmonary disease. ASSESSMENT: The patient is a 71-year-old female with multiple medical problems as listed below, who has been admitted to this medical center due to positive urine culture for extended spectrum beta - lactamase that appears to be . 1. Positive urine culture . The patient does not have any symptoms. 2. Hematuria. 3. Rule out renal stone versus tumor. 4. Afebrile. 5. Normal white blood cells. PLAN: 1. We will discontinue IV meropenem. 2. Monitor CBC. 3. Monitor BMP. 4. Monitor repeat cultures. 5. CT scan of the kidneys . 6. Based on the patient's clinical course and labs, we will do further recommendation. Thank you, Dr. Ford, for allowing me to participate in the care of this patient. I will follow the patient with you during this hospitalization. Isidro Giang M.D. DR: Carri JOB#: [id number] CC:
[2016-11-23] MEDS: Labetalol 200mg tab ORAL SCH ×5 (00:29→18:00)
[2016-11-23] MEDS: HydrALAZINE 10mg Tab ORAL SCH ×5 (00:30→18:00)
[2016-11-23 04:00] VITALS: BP 137/73
[2016-11-23 08:00] VITALS: BP 126/71
[2016-11-23] MEDS: Metoprolol 50mg tab ORAL SCH ×2 (08:36→21:29)
--- NOTE | 2016-11-23 10:17 | Infectious Diseases Prog Note ---
Assessment/Plan Assessment/Plan ASSESSMENT: 71 y/o female with: // h/o recurrent UTIs SP Rx - repeat UA improved, UCx NGTD, CT pending - h/o ESBL+ E.coli, K.pneumoniae // Afebrile without leukocytosis // h/o CVA / dementia // CAF // Coagulopathy // NH resident // MDRO colonized // NKDA // Full Code PLAN: - monitor pt off of ABX ( 11/22 SP meropenem ) - f/u cultures - f/u CT - monitor CBC, temperatures - monitor BMP Subjective Allergies: Coded Allergies: No Known Allergies (Unverified , 04/30/16) Subjective remains afebrile Cx NGTD CT pending Objective Vital Signs Last 24 Hour Vital Signs Date Time Temp Pulse Resp B/P Pulse Ox O2 Delivery O2 Flow Rate FiO2 11/23/16 08:37 140/95 11/23/16 08:36 71 140/95 11/23/16 08:00 97.1 60 18 126/71 100 Room Air 11/23/16 07:19 71 18 Room Air 21 11/23/16 05:27 84 140/95 11/23/16 05:27 140/95 11/23/16 04:00 97.2 74 20 137/73 97 Room Air 11/23/16 00:30 141/88 11/23/16 00:29 82 141/88 11/23/16 00:00 97.3 82 20 141/88 100 Room Air 11/22/16 20:50 73 166/110 11/22/16 20:00 96.3 73 20 100 Room Air 11/22/16 19:50 77 16 Room Air 21 11/22/16 17:57 78 164/107 11/22/16 17:57 164/107 11/22/16 17:57 164/107 11/22/16 16:11 97.7 70 18 139/91 100 Room Air 11/22/16 13:01 90 143/79 11/22/16 13:01 143/79 11/22/16 12:00 97.4 78 19 127/97 100 Room Air Height (Feet): 5 Height (Inches): 3.00 Weight (Pounds): 177 General Appearance: no acute distress Respiratory/Chest: no respiratory distress Cardiovascular: normal rate, regular rhythm Abdomen: normal bowel sounds, soft, non tender, non distended Microbiology Date/Time Source Procedure Growth Status 11/21/16 04:00 Indwelling Cath Urine Culture - Preliminary NO GROWTH Resulted Current Medications Medications (Trade) Dose Ordered Sig/Renea Route PRN Reason Start Time Stop Time Status Last Admin Dose Admin Acetaminophen (Tylenol) 650 mg Q4H PRN ORAL fever 11/19/16 23:00 12/19/16 22:59 Albuterol/ Ipratropium (DuoNeb 0.5-3(2.5)mg/3ml) 3 ml EVERY 4 HOURS PRN HHN Shortness of Breath 11/19/16 23:00 11/24/16 22:59 Atorvastatin Calcium (Lipitor) 80 mg BEDTIME ORAL 11/20/16 21:00 12/20/16 20:59 11/22/16 20:49 Benazepril HCl (Lotensin) 40 mg TWICE A DAY ORAL 11/20/16 09:00 12/20/16 08:59 11/23/16 08:37 Gabapentin (Neurontin) 300 mg DAILY ORAL 11/20/16 09:00 12/20/16 08:59 11/23/16 08:37 Hydralazine HCl (Apresoline) 10 mg EVERY 6 HOURS ORAL 11/20/16 00:00 12/20/16 00:00 11/23/16 05:27 Labetalol HCl (Normodyne) 200 mg Q6HR ORAL 11/20/16 00:00 12/20/16 00:00 11/23/16 05:27 Metoprolol Tartrate (Lopressor) 50 mg EVERY 12 HOURS ORAL 11/20/16 09:00 12/20/16 08:59 11/23/16 08:36 Mirtazapine (Remeron) 15 mg BEDTIME ORAL 11/20/16 21:00 12/20/16 20:59 11/22/16 20:49 Morphine Sulfate (Morphine Sulfate) 2 mg EVERY 4 HOURS PRN IVP Moderate Pain (Pain Scale 4-6) 11/19/16 23:00 11/26/16 22:59 Nitroglycerin (Ntg) 0.4 mg Every 5 Minutes PRN SL Prn Chest Pain 11/19/16 23:00 12/19/16 22:59 Ondansetron HCl (Zofran) 4 mg Q6H PRN IVP Nausea & Vomiting 11/19/16 23:00 12/19/16 22:59 Polyethylene Glycol (Miralax) 17 gm DAILYPRN PRN ORAL Constipation 11/19/16 23:00 12/19/16 22:59 EMMETT PAYTON Nov 23, 2016 10:17
[2016-11-23 12:00] VITALS: BP 143/88
[2016-11-23 16:00] VITALS: BP 144/76
--- NOTE | 2016-11-23 17:54 | Pulmonology Progress Note ---
Assessment/Plan Problems: (1) Urinary tract infection due to ESBL Klebsiella (2) Atrial fibrillation, chronic (3) Dementia (4) Depression (5) HTN (hypertension) Assessment/Plan off abx check cultures, all are negativ check labs ct abd done, result pending dvt prophylaxis dc in am if CT abd negative Subjective ROS Limited/Unobtainable: No Interval Events: comfortable, NAD Allergies: Coded Allergies: No Known Allergies (Unverified , 04/30/16) Objective Last 24 Hour Vital Signs Date Time Temp Pulse Resp B/P Pulse Ox O2 Delivery O2 Flow Rate FiO2 11/23/16 17:37 82 144/76 11/23/16 17:36 144/76 11/23/16 17:36 144/76 11/23/16 16:00 97.9 82 18 144/76 99 Room Air 11/23/16 12:18 63 143/88 11/23/16 12:18 143/88 11/23/16 12:00 97.0 63 18 143/88 100 Room Air 11/23/16 08:37 140/95 11/23/16 08:36 71 140/95 11/23/16 08:00 97.1 60 18 126/71 100 Room Air 11/23/16 07:19 71 18 Room Air 21 11/23/16 05:27 84 140/95 11/23/16 05:27 140/95 11/23/16 04:00 97.2 74 20 137/73 97 Room Air 11/23/16 00:30 141/88 11/23/16 00:29 82 141/88 11/23/16 00:00 97.3 82 20 141/88 100 Room Air 11/22/16 20:50 73 166/110 11/22/16 20:00 96.3 73 20 100 Room Air 11/22/16 19:50 77 16 Room Air 21 11/22/16 17:57 78 164/107 11/22/16 17:57 164/107 11/22/16 17:57 164/107 Intake and Output 11/22/16 11/23/16 19:00 07:00 Intake Total 110 ml Output Total 402 ml 250 ml Balance -292 ml -250 ml IV Total 110 ml Output Urine Total 400 ml 250 ml Stool Total 2 ml # Bowel Movements 1 General Appearance: WD/WN HEENT: normocephalic, atraumatic Respiratory/Chest: chest wall non-tender, lungs clear Breasts: no masses Cardiovascular: normal peripheral pulses Abdomen: normal bowel sounds, soft, non tender Genitourinary: normal external genitalia Extremities: no cyanosis Skin: no rash 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 Microbiology Date/Time Source Procedure Growth Status 11/21/16 04:00 Indwelling Cath Urine Culture - Final NO GROWTH AFTER 48 HOURS Complete Current Medications Medications (Trade) Dose Ordered Sig/Renea Route PRN Reason Start Time Stop Time Status Last Admin Dose Admin Acetaminophen (Tylenol) 650 mg Q4H PRN ORAL fever 11/19/16 23:00 12/19/16 22:59 Albuterol/ Ipratropium (DuoNeb 0.5-3(2.5)mg/3ml) 3 ml EVERY 4 HOURS PRN HHN Shortness of Breath 11/19/16 23:00 11/24/16 22:59 Atorvastatin Calcium (Lipitor) 80 mg BEDTIME ORAL 11/20/16 21:00 12/20/16 20:59 11/22/16 20:49 Benazepril HCl (Lotensin) 40 mg TWICE A DAY ORAL 11/20/16 09:00 12/20/16 08:59 11/23/16 17:36 Gabapentin (Neurontin) 300 mg DAILY ORAL 11/20/16 09:00 12/20/16 08:59 11/23/16 08:37 Hydralazine HCl (Apresoline) 10 mg EVERY 6 HOURS ORAL 11/20/16 00:00 12/20/16 00:00 11/23/16 17:36 Labetalol HCl (Normodyne) 200 mg Q6HR ORAL 11/20/16 00:00 12/20/16 00:00 11/23/16 17:37 Metoprolol Tartrate (Lopressor) 50 mg EVERY 12 HOURS ORAL 11/20/16 09:00 12/20/16 08:59 11/23/16 08:36 Mirtazapine (Remeron) 15 mg BEDTIME ORAL 11/20/16 21:00 12/20/16 20:59 11/22/16 20:49 Morphine Sulfate (Morphine Sulfate) 2 mg EVERY 4 HOURS PRN IVP Moderate Pain (Pain Scale 4-6) 11/19/16 23:00 11/26/16 22:59 Nitroglycerin (Ntg) 0.4 mg Every 5 Minutes PRN SL Prn Chest Pain 11/19/16 23:00 12/19/16 22:59 Ondansetron HCl (Zofran) 4 mg Q6H PRN IVP Nausea & Vomiting 11/19/16 23:00 12/19/16 22:59 Polyethylene Glycol (Miralax) 17 gm DAILYPRN PRN ORAL Constipation 11/19/16 23:00 12/19/16 22:59 MAURICIO WILDE Nov 23, 2016 17:54
[2016-11-23 20:00] VITALS: BP 153/91
[2016-11-23] MEDS: Atorvastatin 80mg tab ORAL SCH (21:29)
[2016-11-24] VITALS (8 sets, daily range): BP systolic 125–159; BP diastolic 81–109
[2016-11-24] MEDS: Labetalol 200mg tab ORAL SCH ×4 (00:38→17:26)
[2016-11-24] MEDS: HydrALAZINE 10mg Tab ORAL SCH ×4 (00:38→17:26)
--- NOTE | 2016-11-24 09:00 | Diagnostic Imaging Report ---
Indication: Abdominal pain Technique: Spiral acquisitions obtained through the abdomen and pelvis. Patient given oral contrast No IV contrast utilized, per referring physician request.. Multiplanar reconstructions were generated. Total dose length product 970 mGycm. CTDIvol(s) 18 mGy. Dose reduction achieved using automated exposure control Comparison: None Findings: The appendix is normal. There is colonic diverticulosis. No evidence of diverticulitis. No small bowel distention or small bowel wall thickening. Contrast traverses the entirety of the small bowel and is seen within the cecum. An unusual tubular calcified structure courses adjacent to the greater curvature of the stomach anteriorly and then posteriorly under the antrum. No free or loculated intraperitoneal air or fluid is demonstrated. There is suggestion of small hiatal hernia. There is suggestion of wall thickening of the gastric cardia, although this could be an artifact of under distention. There is a tiny fat-containing umbilical hernia. There is mild distention of the rectum by feces. Lack of IV contrast limits assessment of the solid organs. The liver is unremarkable. The gallbladder contains gallstones. It also demonstrates some mural calcification. No biliary ductal dilatation. The pancreas is somewhat atrophic. The spleen, adrenals are unremarkable. The right kidney demonstrates multiple fluid attenuation cysts. There is renal cortical irregularity bilaterally. No hydronephrosis, hydroureter, or renal or ureteral calculi. No pelvic mass or adenopathy. The uterus demonstrates calcifications, consistent with fibroids. There is a Prather catheter within the bladder, which is nondistended. There is a right groin central venous catheter The heart is enlarged. There is trace pleural fluid on the left. There are atelectatic changes at both lung bases. There is also some mild groundglass opacity in both lung bases. There are dense mitral annular calcifications. There is degenerative lumbar spondylosis. Impression: Possible minimal rectal fecal impaction No acute abnormality otherwise Thickening of the gastric cardia, suspect artifactual due to under distention, peptic ulcer disease or neoplastic thickening completely excludable, however.: Clinical findings, consider endoscopy if clinically indicated Cholelithiasis. Gallbladder wall thickening suggests porcelain gallbladder Colonic diverticulosis. No evidence of diverticulitis Unusual calcified tubular structure adjacent to the stomach. Etiology uncertain; suspect that this represents a calcified abandoned catheter tract, such as a lap band tract. Correlate with surgical history Right groin central venous catheter Cardiomegaly Trace left pleural fluid. Basilar pulmonary atelectasis. Groundglass opacities at the lung bases could represent mild pulmonary edema Other findings as noted, including degenerative lumbar spondylosis, dense mitral annular calcifications, Prather catheter in the bladder, calcified old uterine fibroids, right renal cysts, mild pancreatic atrophy The CT scanner at [facility] is accredited by the [employer] and the scans are performed using protocols designed to limit radiation exposure to as low as reasonably achievable to attain images of sufficient resolution adequate for diagnostic evaluation.
[2016-11-24] MEDS: Metoprolol 50mg tab ORAL SCH ×2 (10:10→21:00)
[2016-11-24] MEDS: Dyna-Hex 2% Top Sol 8oz TOPIC SCH (13:19)
[2016-11-24] MEDS ORDERED: LORazepam 1mg tab ORAL PRN (14:45)
--- NOTE | 2016-11-24 15:30 | Pulmonology Progress Note ---
Assessment/Plan Problems: (1) Urinary tract infection due to ESBL Klebsiella (2) Atrial fibrillation, chronic (3) Dementia (4) Depression (5) HTN (hypertension) Assessment/Plan check cultures, all are negativ check labs ct abd done, result pending dvt prophylaxis dc to senior living Subjective ROS Limited/Unobtainable: No Constitutional: Reports: no symptoms HEENT: Repors: no symptoms Respiratory: Reports: no symptoms Allergies: Coded Allergies: No Known Allergies (Unverified , 04/30/16) Objective Last 24 Hour Vital Signs Date Time Temp Pulse Resp B/P Pulse Ox O2 Delivery O2 Flow Rate FiO2 11/24/16 13:19 80 137/109 11/24/16 13:19 137/109 11/24/16 11:48 98.0 80 20 137/109 95 Room Air 11/24/16 10:11 148/81 11/24/16 10:10 76 148/81 11/24/16 08:09 98.2 76 21 148/81 95 Room Air 11/24/16 08:05 81 18 Room Air 21 11/24/16 05:53 84 137/89 11/24/16 05:53 137/89 11/24/16 04:00 97.3 72 20 159/93 98 Room Air 11/24/16 00:38 82 153/91 11/24/16 00:38 153/91 11/24/16 00:00 97.7 70 18 152/88 Room Air 11/23/16 21:29 82 153/91 11/23/16 20:00 97.9 82 20 153/91 93 Room Air 11/23/16 19:46 73 18 Room Air 21 11/23/16 16:00 97.9 82 18 144/76 99 Room Air Intake and Output 11/23/16 11/24/16 19:00 07:00 Intake Total 840 ml Output Total 700 ml Balance 840 ml -700 ml Intake Oral 840 ml Output Urine Total 700 ml # Bowel Movements 3 1 General Appearance: WD/WN HEENT: normocephalic, atraumatic Respiratory/Chest: chest wall non-tender, lungs clear Breasts: no masses Cardiovascular: normal rate Abdomen: normal bowel sounds, soft, non tender Genitourinary: normal external genitalia Extremities: no cyanosis Skin: no rash Current Medications Medications (Trade) Dose Ordered Sig/Renea Route PRN Reason Start Time Stop Time Status Last Admin Dose Admin Acetaminophen (Tylenol) 650 mg Q4H PRN ORAL fever 11/19/16 23:00 12/19/16 22:59 Albuterol/ Ipratropium (DuoNeb 0.5-3(2.5)mg/3ml) 3 ml EVERY 4 HOURS PRN HHN Shortness of Breath 11/19/16 23:00 11/24/16 22:59 Atorvastatin Calcium (Lipitor) 80 mg BEDTIME ORAL 11/20/16 21:00 12/20/16 20:59 11/23/16 21:29 Benazepril HCl (Lotensin) 40 mg TWICE A DAY ORAL 11/20/16 09:00 12/20/16 08:59 11/24/16 10:11 Chlorhexidine Gluconate (Violet-Hex 2%) 1 applic DAILY TOPIC 11/24/16 09:00 12/24/16 08:59 11/24/16 13:19 Clonidine HCl (Catapres) 0.1 mg STAT ONCE ORAL 11/24/16 15:30 11/24/16 15:31 Gabapentin (Neurontin) 300 mg DAILY ORAL 11/20/16 09:00 12/20/16 08:59 11/24/16 10:11 Hydralazine HCl (Apresoline) 10 mg EVERY 6 HOURS ORAL 11/20/16 00:00 12/20/16 00:00 11/24/16 13:19 Labetalol HCl (Normodyne) 200 mg Q6HR ORAL 11/20/16 00:00 12/20/16 00:00 11/24/16 13:19 Lorazepam (Ativan) 2 mg Q6H PRN ORAL For Anxiety 11/24/16 14:45 12/01/16 14:44 Metoprolol Tartrate (Lopressor) 50 mg EVERY 12 HOURS ORAL 11/20/16 09:00 12/20/16 08:59 11/24/16 10:10 Mirtazapine (Remeron) 15 mg BEDTIME ORAL 11/20/16 21:00 12/20/16 20:59 11/23/16 21:29 Morphine Sulfate (Morphine Sulfate) 2 mg EVERY 4 HOURS PRN IVP Moderate Pain (Pain Scale 4-6) 11/19/16 23:00 11/26/16 22:59 Nitroglycerin (Ntg) 0.4 mg Every 5 Minutes PRN SL Prn Chest Pain 11/19/16 23:00 12/19/16 22:59 Ondansetron HCl (Zofran) 4 mg Q6H PRN IVP Nausea & Vomiting 11/19/16 23:00 12/19/16 22:59 Polyethylene Glycol (Miralax) 17 gm DAILYPRN PRN ORAL Constipation 11/19/16 23:00 12/19/16 22:59 MAURICIO WILDE Nov 24, 2016 15:30
--- NOTE | 2016-11-24 18:32 | Infectious Diseases Prog Note ---
Assessment/Plan Assessment/Plan ASSESSMENT: 71 y/o female with: // h/o recurrent UTIs SP Rx - repeat UA improved, UCx NGTD - CT: right kidney demonstrates multiple fluid attenuation cysts. There is renal cortical irregularity bilaterally. No hydronephrosis, hydroureter, or renal or ureteral calculi. - h/o ESBL+ E.coli, K.pneumoniae // Afebrile without leukocytosis // h/o CVA / dementia // CAF // Coagulopathy // Porcelain gallbladder // NH resident // MDRO colonized // NKDA // Full Code PLAN: - ok to DC off of ABX from ID standpoint ( 11/22 SP meropenem ) - f/u final cultures - monitor CBC, temperatures - monitor BMP Subjective Allergies: Coded Allergies: No Known Allergies (Unverified , 04/30/16) Subjective remains afebrile Cx NGTD CT noted for possible DC Objective Vital Signs Last 24 Hour Vital Signs Date Time Temp Pulse Resp B/P Pulse Ox O2 Delivery O2 Flow Rate FiO2 11/24/16 17:41 80 126/90 11/24/16 17:26 80 144/108 11/24/16 17:26 144/108 11/24/16 17:26 144/108 11/24/16 15:43 144/108 11/24/16 15:32 97.9 80 21 144/108 95 Room Air 11/24/16 13:19 80 137/109 11/24/16 13:19 137/109 11/24/16 11:48 98.0 80 20 137/109 95 Room Air 11/24/16 10:11 148/81 11/24/16 10:10 76 148/81 11/24/16 08:09 98.2 76 21 148/81 95 Room Air 11/24/16 08:05 81 18 Room Air 21 11/24/16 05:53 84 137/89 11/24/16 05:53 137/89 11/24/16 04:00 97.3 72 20 159/93 98 Room Air 11/24/16 00:38 82 153/91 11/24/16 00:38 153/91 11/24/16 00:00 97.7 70 18 152/88 Room Air 11/23/16 21:29 82 153/91 11/23/16 20:00 97.9 82 20 153/91 93 Room Air 11/23/16 19:46 73 18 Room Air 21 Height (Feet): 5 Height (Inches): 3.00 Weight (Pounds): 177 General Appearance: no acute distress Respiratory/Chest: no respiratory distress Cardiovascular: normal rate, regular rhythm Abdomen: normal bowel sounds, soft, non tender, non distended Current Medications Medications (Trade) Dose Ordered Sig/Renea Route PRN Reason Start Time Stop Time Status Last Admin Dose Admin Acetaminophen (Tylenol) 650 mg Q4H PRN ORAL fever 11/19/16 23:00 12/19/16 22:59 Albuterol/ Ipratropium (DuoNeb 0.5-3(2.5)mg/3ml) 3 ml EVERY 4 HOURS PRN HHN Shortness of Breath 11/19/16 23:00 11/24/16 22:59 Atorvastatin Calcium (Lipitor) 80 mg BEDTIME ORAL 11/20/16 21:00 12/20/16 20:59 11/23/16 21:29 Benazepril HCl (Lotensin) 40 mg TWICE A DAY ORAL 11/20/16 09:00 12/20/16 08:59 11/24/16 17:26 Chlorhexidine Gluconate (Violet-Hex 2%) 1 applic DAILY TOPIC 11/24/16 09:00 12/24/16 08:59 11/24/16 13:19 Gabapentin (Neurontin) 300 mg DAILY ORAL 11/20/16 09:00 12/20/16 08:59 11/24/16 10:11 Hydralazine HCl (Apresoline) 10 mg EVERY 6 HOURS ORAL 11/20/16 00:00 12/20/16 00:00 11/24/16 17:26 Labetalol HCl (Normodyne) 200 mg Q6HR ORAL 11/20/16 00:00 12/20/16 00:00 11/24/16 17:26 Lorazepam (Ativan) 2 mg Q6H PRN ORAL For Anxiety 11/24/16 14:45 12/01/16 14:44 11/24/16 15:43 Metoprolol Tartrate (Lopressor) 50 mg EVERY 12 HOURS ORAL 11/20/16 09:00 12/20/16 08:59 11/24/16 10:10 Mirtazapine (Remeron) 30 mg BEDTIME ORAL 11/24/16 21:00 12/24/16 20:59 Morphine Sulfate (Morphine Sulfate) 2 mg EVERY 4 HOURS PRN IVP Moderate Pain (Pain Scale 4-6) 11/19/16 23:00 11/26/16 22:59 Nitroglycerin (Ntg) 0.4 mg Every 5 Minutes PRN SL Prn Chest Pain 11/19/16 23:00 12/19/16 22:59 Ondansetron HCl (Zofran) 4 mg Q6H PRN IVP Nausea & Vomiting 11/19/16 23:00 12/19/16 22:59 Polyethylene Glycol (Miralax) 17 gm DAILYPRN PRN ORAL Constipation 11/19/16 23:00 12/19/16 22:59 EMMETT PAYTON Nov 24, 2016 18:32
[2016-11-24] MEDS: Atorvastatin 80mg tab ORAL SCH (21:00)
--- NOTE | 2016-11-24 22:16 | Progress Note ---
DATE: 11/24/2016 SUBJECTIVE: The patient's medication was changed recently. The patient presenting with tearfulness, depressed mood, anhedonia, worthlessness, hopelessness, and decreased energy. Compliant with her medication. MENTAL STATUS EXAMINATION: The patient is alert, oriented, and cooperative. No behavioral issues, but slightly tearful at times. Thought process is concrete. Thought content, no suicidal or homicidal ideation. Cognition is impaired. ASSESSMENT: 1. Major depressive disorder. 2. Cognitive impairment. PLAN: 1. We will increase the Remeron to 30 mg p.o. at bedtime. 2. We will also start the patient on Ativan. 3. We will continue to follow and readjust the medications. Kunal Tse M.D. DR: MARVA JOB#: [id number] CC:
[2016-11-25] MEDS: Labetalol 200mg tab ORAL SCH ×4 (00:51→12:17)
[2016-11-25] MEDS: HydrALAZINE 10mg Tab ORAL SCH ×4 (00:51→12:17)
[2016-11-25 04:00] VITALS: BP 137/97
[2016-11-25 08:01] VITALS: BP 137/83
[2016-11-25] MEDS: Metoprolol 50mg tab ORAL SCH (10:27)
[2016-11-25] MEDS: Dyna-Hex 2% Top Sol 8oz TOPIC SCH (10:28)
[2016-11-25 11:24] VITALS: BP 134/85
[2016-11-25 12:17] VITALS: BP 134/85
--- NOTE | 2016-11-25 16:10 | Pulmonology Progress Note ---
Assessment/Plan Problems: (1) Urinary tract infection due to ESBL Klebsiella (2) Atrial fibrillation, chronic (3) Dementia (4) Depression (5) HTN (hypertension) Assessment/Plan check cultures, all are negativ check labs ct abd done, result pending dvt prophylaxis dc to senior care Subjective ROS Limited/Unobtainable: No Allergies: Coded Allergies: No Known Allergies (Unverified , 04/30/16) Objective Last 24 Hour Vital Signs Date Time Temp Pulse Resp B/P Pulse Ox O2 Delivery O2 Flow Rate FiO2 11/25/16 12:17 87 134/85 11/25/16 12:17 134/85 11/25/16 11:24 98.2 87 20 134/85 99 Room Air 11/25/16 10:27 70 137/83 11/25/16 10:27 137/83 11/25/16 08:01 98.6 70 20 137/83 100 Room Air 11/25/16 06:40 70 18 Room Air 11/25/16 06:17 76 157/87 11/25/16 06:17 157/87 11/25/16 04:00 97.2 63 17 137/97 100 Room Air 11/25/16 00:00 88 155/83 11/25/16 00:00 155/83 11/24/16 23:55 97.7 88 20 155/83 100 Room Air 11/24/16 20:00 98.2 64 18 125/84 100 Room Air 11/24/16 19:28 66 18 Room Air 21 11/24/16 17:41 80 126/90 11/24/16 17:26 80 144/108 11/24/16 17:26 144/108 11/24/16 17:26 144/108 Intake and Output 11/24/16 11/25/16 19:00 07:00 Intake Total 320 ml 120 ml Output Total 400 ml 300 ml Balance -80 ml -180 ml Intake Oral 320 ml 120 ml Output Urine Total 400 ml 300 ml # Bowel Movements 2 Objective General Appearance: WD/WN HEENT: normocephalic Respiratory/Chest: chest wall non-tender, lungs clear Cardiovascular: normal peripheral pulses, normal rate Abdomen: normal bowel sounds, soft, non tender Extremities: no cyanosis, other - effusion in both knees Skin: no rash MAURICIO WILDE Nov 25, 2016 16:10
--- NOTE | 2016-11-25 20:31 | Progress Note ---
SUBJECTIVE: The patient was doing well, less tearful from yesterday, still has anxiety and episodes of crying. No behavior issues. MENTAL STATUS EXAMINATION: The patient is alert and oriented to time, self, and place. Mood is dysphoric. Affect is constricted. Congruent with mood. There is paucity of thought content. Cognition is impaired. ASSESSMENT: Major depressive disorder, dementia. PLAN: 1. The patient will be continued on mirtazapine, dose was increased to 30. 2. We will continue to follow. 3. We will continue to monitor the symptoms. Kunal Tse M.D. DR: Rufino JOB#: [id number] CC:
--- NOTE | 2016-11-27 09:48 | Discharge Summary ---
Discharge Summary Hospital Course Date of Admission Nov 19, 2016 at 22:06 Date of Discharge Nov 25, 2016 at 14:06 Admitting Diagnosis ESBL,URINARY TRACT INFECTION HPI Marcelle Marquez is a 71 year old female who was admitted on Nov 19, 2016 at 22:06 for Extended Spectrum Beta Lactamase Hospital Course [id number] Discharge Discharge Disposition Patient was discharged to SNF/Subacute Facility(03) Discharge Diagnoses: Maxine Grullon NP Nov 27, 2016 09:48
--- NOTE | 2016-11-27 22:46 | Discharge Summary 2 SIG ---
DATE OF ADMISSION: 11/19/2016 DATE OF DISCHARGE: 11/25/2016 CONSULTANTS: 1. Kunal Tse M.D. 2. Isidro Giang M.D. BRIEF HOSPITAL COURSE: The patient is a 71-year-old female with history of depression, dementia, hypertension, atrial fibrillation, and CVA, group home resident, presented with chief complaint of urinary tract infection. She grew out ESBL E. coli that is resistant to oral medication and has been on several courses of antibiotics. On evaluation at ED, chest x-ray showed acute cardiopulmonary disease. EKG showed atrial fibrillation at a rate of 85. The patient had a poor IV access and would need IV antibiotics. A right femoral triple lumen was inserted. She was admitted to medical floor and was followed by Dr. Giang for antibiotic management. She underwent psychiatric evaluation with Dr. Tse and was diagnosed to have major depressive disorder and dementia. Paxil was changed to qhs and was continued on Remeron 15 mg. Trazodone and temazepam were discontinued. The patient was initially given meropenem. Repeat UA showed improvement and urine culture did not isolate any growth. Antibiotic was discontinued. CT of the abdomen and pelvis showed no acute abnormality with minimal rectal fecal impaction and thickening of the gastric cardia with cholelithiasis and colonic diverticulosis. No evidence of diverticulitis. No hydronephrosis, hydroureter, or renal ureteral calculi. All cultures have been negative. Remeron was subsequently increased to 30 mg daily at bedtime and the patient was eventually discharged to a group home. FINAL DIAGNOSES: 1. Urinary tract infection due to Extended-spectrum beta-lactamases Klebsiella. 2. Chronic atrial fibrillation. 3. Dementia. 4. Depression. 5. Hypertension. 6. Dementia. 7. Coagulopathy. 8. halfway resident. Arleth Ford M.D. I have been assigned to dictate discharge summary on this account and I was not involved in the patient's management. Maxine Grullon N.P. DR: Jade JOB#: [id number] CC: TAYLA
== END 2016-11-25 14:06 | DRG 690 ==
LOC: EDBD 20:46 → EMR 21:29 → 4E 22:06 → EDBEDREQ 23:16
PROC: 06HM33Z Insertion of Infusion Device into Right Femoral Vein, Percutaneous Approach (ICD-10-PCS; principal; 2016-11-19)
DX: N39.0 Urinary tract infection, site not specified (principal); I48.2 Chronic atrial fibrillation; F03.90 Unspecified dementia, unspecified severity, without behavioral disturbance, psychotic disturbance, mood disturbance, and anxiety; F32.9 Major depressive disorder, single episode, unspecified; I10 Essential (primary) hypertension; I48.91 Unspecified atrial fibrillation; B96.1 Klebsiella pneumoniae [K. pneumoniae] as the cause of diseases classified elsewhere; K21.9 Gastro-esophageal reflux disease without esophagitis; Z16.24 Resistance to multiple antibiotics; Z79.01 Long term (current) use of anticoagulants; Z86.73 Personal history of transient ischemic attack (TIA), and cerebral infarction without residual deficits
CPT/HCPCS: 36415; 71010; 74176; 80053; 81003; 82550; 82553; 83605; 83735; 84100; 84484; 85025; 85610; 85730; 87040; 87081; 87086; 92610; 93005; 94664

== ENCOUNTER 2017-05-13 18:24 | Emergency (ER) | payer MEDICARE, OTHER ==
[~2017-05-13] VITALS: Ht 162.6 cm; Wt 68.0 kg
[~2017-05-13 18:24] MED LIST: ACETAMINOPHEN325 M1 ORAL; ADALAT20 MG ORAL; ATIVAN0.5 MG ORAL; ATORVASTATIN CA80 MG ORAL; BENAZEPRIL HCL40 MG ORAL; DIOVAN80 MG ORAL; FOLIC ACID1 MG ORAL; GABAPENTIN300 MG ORAL; HYDRALAZINE HCL10 MG ORAL; METHOTREXATE2.5 MG PO; METOPROLOL TART50 M1 ORAL; MIRTAZAPINE15 MG ORAL; NORMODYNE200 MG ORAL; OMEPRAZOLE20 M2 ORAL; PAXIL20 MG ORAL; SULFASALAZINE500 MG ORAL; TRAMADOL HCL50 MG ORAL; TRAZODONE HCL150 MG ORAL
[2017-05-13 20:06] LABS: ANION GAP 6 mmol/L (5-15); CALCIUM 8.6 MG/DL (8.5-10.1); CARBON DIOXIDE 27 MMOL/L (21-32); CHLORIDE 102 MMOL/L (98-107); POTASSIUM 3.9 MMOL/L (3.5-5.1); SODIUM 135 MMOL/L (136-145)
[2017-05-13 20:16] LABS: BASOPHILS % (AUTO) 1.1 % (0.0-2.0); EOSINOPHILS % (AUTO) 1.1 % (0.0-3.0); LYMPHOCYTES % (AUTO) 32.8 % (20.0-45.0); MEAN CORPUSCULAR HEMOGLOBIN 26.7 PG (27.0-31.0); MEAN CORPUSCULAR HGB CONC 30.6 G/DL (32.0-36.0); MEAN CORPUSCULAR VOLUME 87 FL (80-99); MEAN PLATELET VOLUME 7.2 FL (6.5-10.1); MONOCYTES % (AUTO) 6.9 % (1.0-10.0); NEUTROPHILS % (AUTO) 58.2 % (45.0-75.0); PLATELET COUNT 198 K/UL (150-450); RED BLOOD COUNT 4.73 M/UL (4.20-5.40); RED CELL DISTRIBUTION WIDTH 14.6 % (11.6-14.8); WHITE BLOOD COUNT 6.6 K/UL (4.8-10.8)
[2017-05-13 20:20] LABS: ALANINE AMINOTRANSFERASE 18 U/L (12-78); ALBUMIN/GLOBULIN RATIO 0.4 (1.0-2.7); ASPARTATE AMINO TRANSFERASE 27 U/L (15-37); CKMB 1.3 NG/ML (0.0-3.6); TOTAL PROTEIN 8.4 G/DL (6.4-8.2)
[2017-05-13 20:53] LABS: APPEARANCE,URINE SLIGHTLY CLOUDY; KETONES,URINE NEGATIVE (NEGATIVE); LEUKOCYTE ESTERASE ,URINE 3+ (NEGATIVE); NITRITE,URINE POSITIVE (NEGATIVE); PH,URINE 6 (4.5-8.0); PROTEIN,URINE 3+ (NEGATIVE); UROBILINOGEN,URINE NORMAL MG/DL (0.0-1.0)
[2017-05-13 20:59] LABS: BACTERIA,URINE MODERATE /HPF; SQUAMOUS EPITHELIAL CELL,UR FEW /LPF (NONE/OCC)
[2017-05-13] MEDS ORDERED: KEFLEX500 MG ORAL (21:33)
[2017-05-13] MEDS: cefTRIAXone 1 GM in NS 55 ML IVPB ONE (21:43)
[2017-05-13 23:07] VITALS: BP 128/89
[2017-05-13 23:08] VITALS: BP 134/82
--- NOTE | 2017-05-14 14:21 | Emergency Room Report ---
History of Present Illness General Chief Complaint: Female Urogenital Problems Source: Patient, EMS Present Illness HPI 71-year-old female presents ED for evaluation. Patient brought from residential facility for evaluation of hematuria. Started 2 days ago. Patient denies any pain. Denies any fevers or chills. Denies any nausea or vomiting. No other aggravating or leading factors. Denies any other associated symptoms Allergies: Coded Allergies: No Known Allergies (Unverified , 04/30/16) Patient History Past Medical History: AFib, GERD, CVA/TIA, psych hx Pertinent Family History: none Social History: Denies: smoking, alcohol use, drug use Now: No Immunizations: UTD Reviewed Nursing Documentation: PMH: Agreed, PSxH: Agreed Nursing Documentation-PMH Hx Cardiac Problems: Yes - AFIB Hx Hypertension: Yes - Hyperlipidemia Hx Cancer: No Hx Gastrointestinal Problems: Yes - GERD History Of Psychiatric Problem: Yes - ANXIETY,DEPRESSION Hx Neurological Problems: Yes Hx Cerebrovascular Accident: Yes Hx Dementia: Yes Review of Systems All Other Systems: negative except mentioned in HPI Physical Exam Vital Signs Date Time Temp Pulse Resp B/P (MAP) Pulse Ox O2 Delivery O2 Flow Rate FiO2 05/13/17 18:40 98.8 98 18 134/82 98 Room Air Sp02 EP Interpretation: reviewed, normal General Appearance: no apparent distress, alert, GCS 15, non-toxic Head: normocephalic, atraumatic Eyes: bilateral eye normal inspection, bilateral eye PERRL ENT: hearing grossly normal, normal pharynx, no angioedema, normal voice Neck: full range of motion, supple/symm/no masses Respiratory: chest non-tender, lungs clear, normal breath sounds, speaking full sentences Cardiovascular #1: regular rate, rhythm, no edema Cardiovascular #2: 2+ carotid (R), 2+ carotid (L), 2+ radial (R), 2+ radial (L) , 2+ dorsalis pedis (R), 2+ dorsalis pedis (L) Gastrointestinal: normal bowel sounds, non tender, soft, non-distended, no guarding, no rebound Rectal: deferred Genitourinary: normal inspection, no CVA tenderness Musculoskeletal: back normal, gait/station normal, normal range of motion, non- tender Neurologic: alert, oriented x3, responsive, motor strength/tone normal, sensory intact, speech normal Psychiatric: judgement/insight normal, memory normal, mood/affect normal, no suicidal/homicidal ideation Reflexes: 3+ bicep (R), 3+ bicep (L), 3+ tricep (R), 3+ tricep (L), 3+ knee (R) , 3+ knee (L) Skin: normal color, no rash, warm/dry, well hydrated Lymphatic: no adenopathy Medical Decision Making Diagnostic Impression: Primary Impression: UTI (urinary tract infection) Qualified Codes: N39.0 - Urinary tract infection, site not specified; R31.9 - Hematuria, unspecified ER Course Hospital Course 71-year-old female presents to ED for evaluation of hematuria x 2 days Differential diagnoses include: UTI, cystitis, pyelonephritis Clinical course Patient placed on stretcher. After initial history and physical I ordered UA, labs, IV fluids labs - no leukocytosis noted, hbhematocrit stable, electrolytes okay, UA + bacteria given abx in ED. discussed findings with PMD Dr. Pereyra; given that patient appears afebrile and nontoxic with no leukocytosis normal lactate I believe patient be safely discharged back to SNF with antibiotic. He agreed Diagnosis - UTI Stable and discharged home with prescriptions for Rx Keflex. Followup with PMD. Return to ED if symptoms recur or worsen Labs Test 05/13/17 19:38 05/13/17 20:28 White Blood Count 6.6 K/UL (4.8-10.8) Red Blood Count 4.73 M/UL (4.20-5.40) Hemoglobin 12.6 G/DL (12.0-16.0) Hematocrit 41.2 % (37.0-47.0) Mean Corpuscular Volume 87 FL (80-99) Mean Corpuscular Hemoglobin 26.7 PG (27.0-31.0) Mean Corpuscular Hemoglobin Concent 30.6 G/DL (32.0-36.0) Red Cell Distribution Width 14.6 % (11.6-14.8) Platelet Count 198 K/UL (150-450) Mean Platelet Volume 7.2 FL (6.5-10.1) Neutrophils (%) (Auto) 58.2 % (45.0-75.0) Lymphocytes (%) (Auto) 32.8 % (20.0-45.0) Monocytes (%) (Auto) 6.9 % (1.0-10.0) Eosinophils (%) (Auto) 1.1 % (0.0-3.0) Basophils (%) (Auto) 1.1 % (0.0-2.0) Sodium Level 135 MMOL/L (136-145) Potassium Level 3.9 MMOL/L (3.5-5.1) Chloride Level 102 MMOL/L (98-107) Carbon Dioxide Level 27 MMOL/L (21-32) Anion Gap 6 mmol/L (5-15) Blood Urea Nitrogen 24 mg/dL (7-18) Creatinine 1.0 MG/DL (0.55-1.30) Estimat Glomerular Filtration Rate mL/min (>60) Glucose Level 119 MG/DL (74-106) Lactic Acid Level 1.90 mmol/L (0.66-2.22) Calcium Level 8.6 MG/DL (8.5-10.1) Total Bilirubin 0.2 MG/DL (0.2-1.0) Aspartate Amino Transf (AST/SGOT) 27 U/L (15-37) Alanine Aminotransferase (ALT/SGPT) 18 U/L (12-78) Alkaline Phosphatase 128 U/L (46-116) Total Creatine Kinase 68 U/L (26-308) Creatine Kinase MB 1.3 NG/ML (0.0-3.6) Creatine Kinase MB Relative Index 1.9 Troponin I 0.007 ng/mL (0.000-0.056) Total Protein 8.4 G/DL (6.4-8.2) Albumin 2.5 G/DL (3.4-5.0) Globulin 5.9 g/dL Albumin/Globulin Ratio 0.4 (1.0-2.7) Urine Color Yellow Urine Appearance Slightly cloudy Urine pH 6 (4.5-8.0) Urine Specific [place] 1.015 (1.005-1.035) Urine Protein 3+ (NEGATIVE) Urine Glucose (UA) Negative (NEGATIVE) Urine Ketones Negative (NEGATIVE) Urine Occult Blood 5+ (NEGATIVE) Urine Nitrite Positive (NEGATIVE) Urine Bilirubin Negative (NEGATIVE) Urine Urobilinogen Normal MG/DL (0.0-1.0) Urine Leukocyte Esterase 3+ (NEGATIVE) Urine RBC 10-15 /HPF (0 - 2) Urine WBC 5-10 /HPF (0 - 2) Urine Squamous Epithelial Cells Few /LPF (NONE/OCC) Urine Bacteria Moderate /HPF (NONE) Last Vital Signs Date Time Temp Pulse Resp B/P (MAP) Pulse Ox O2 Delivery O2 Flow Rate FiO2 05/13/17 23:08 98.8 18 134/82 98 Room Air 05/13/17 18:40 98 Status: improved Disposition: XFER SNF Condition: Stable Scripts Cephalexin* (KEFLEX*) 500 Mg Capsule 500 MG ORAL Q6H, #28 CAP 0 Refills Prov: JOCELIN BROWN M.D. 05/13/17 Patient Instructions: Urinary Tract Infection JOCELIN BROWN M.D. May 14, 2017 14:21
== END 2017-05-13 23:09 ==
LOC: EDUNIT# 18:24 → EDBD 18:24 → EMR 19:06
DX: N39.0 Urinary tract infection, site not specified (principal); R31.9 Hematuria, unspecified; I48.91 Unspecified atrial fibrillation; I10 Essential (primary) hypertension; E78.5 Hyperlipidemia, unspecified; F41.9 Anxiety disorder, unspecified; F32.9 Major depressive disorder, single episode, unspecified
CPT/HCPCS: 36415; 80053; 81003; 82550; 82553; 83605; 84484; 85025; 87040; 87086; 87181; 96361; 96365; 99284; J0696

== ENCOUNTER 2017-05-15 20:41 | Inpatient (IN) | payer MEDICARE, OTHER ==
[~2017-05-15] VITALS: Ht 162.6 cm; Wt 68.0 kg
[~2017-05-15 20:41] MED LIST changes: +KEFLEX500 MG ORAL
--- NOTE | 2017-05-15 20:58 | Emergency Room Report ---
History of Present Illness General Chief Complaint: Fever Present Illness Allergies: Coded Allergies: No Known Allergies (Unverified , 04/30/16) Patient History Reviewed Nursing Documentation: PMH: Agreed, PSxH: Agreed Nursing Documentation-PMH Hx Cardiac Problems: Yes - AFIB Hx Hypertension: Yes - Hyperlipidemia Hx Cancer: No Hx Gastrointestinal Problems: Yes - GERD Hx Neurological Problems: Yes Hx Cerebrovascular Accident: Yes Hx Dementia: Yes Review of Systems All Other Systems: negative except mentioned in HPI Physical Exam Vital Signs Date Time Temp Pulse Resp B/P (MAP) Pulse Ox O2 Delivery O2 Flow Rate FiO2 05/15/17 20:46 102.7 90 17 143/90 97 Room Air Sp02 EP Interpretation: reviewed, normal General Appearance: normal inspection, alert, Chronically Ill Head: atraumatic ENT: normal ENT inspection, hearing grossly normal, normal voice Neck: normal inspection, full range of motion, supple, no bony tend Respiratory: normal inspection, lungs clear, normal breath sounds, no respiratory distress, no retraction, no wheezing Cardiovascular #1: regular rate, rhythm, no edema Gastrointestinal: normal inspection, soft, no guarding, no hernia, tenderness - left lower abdomen Genitourinary: no CVA tenderness Musculoskeletal: normal inspection, back normal, normal range of motion Neurologic: alert, responsive, other - poor alertness Psychiatric: other - flat affect, grimace to pain Skin: normal inspection, normal color, no rash Medical Decision Making ER Course Patient presented for abdominal pain. Differential diagnoses included ischemic bowel, appendicitis, perforated viscus, abdominal aortic aneurysm, inferior myocardial infarction, viral gastroenteritis. Because of complexity of patient' s case laboratory testing and imaging studies were ordered. Last Vital Signs Date Time Temp Pulse Resp B/P (MAP) Pulse Ox O2 Delivery O2 Flow Rate FiO2 05/15/17 20:46 102.7 90 17 143/90 97 Room Air Kevin Gomez May 15, 2017 20:58
[2017-05-15 21:00] VITALS: BP 143/90
[2017-05-15] MEDS ORDERED: Ampicillin/Sulbactam Sod 3 GM in NS 110 ML IVPB ONE (21:00)
[2017-05-15] MEDS ORDERED: Vancomycin 1 GM in NS 275 ML IVPB ONE (21:15)
[2017-05-15] MEDS ORDERED: Vancomycin 1gm inj IVPB ONE (21:20)
[2017-05-15] MEDS ORDERED: Unasyn 3gm Inj ONE (21:20)
[2017-05-15 21:25] LABS: BASOPHILS % (AUTO) 0.5 % (0.0-2.0); EOSINOPHILS % (AUTO) 0.1 % (0.0-3.0); LYMPHOCYTES % (AUTO) 9.9 % (20.0-45.0); MEAN CORPUSCULAR HEMOGLOBIN 26.1 PG (27.0-31.0); MEAN CORPUSCULAR HGB CONC 30.2 G/DL (32.0-36.0); MEAN CORPUSCULAR VOLUME 86 FL (80-99); MEAN PLATELET VOLUME 7.8 FL (6.5-10.1); MONOCYTES % (AUTO) 5.3 % (1.0-10.0); NEUTROPHILS % (AUTO) 84.2 % (45.0-75.0); PLATELET COUNT 192 K/UL (150-450); RED BLOOD COUNT 4.69 M/UL (4.20-5.40); RED CELL DISTRIBUTION WIDTH 14.7 % (11.6-14.8); WHITE BLOOD COUNT 9.8 K/UL (4.8-10.8)
[2017-05-15 21:30] VITALS: BP 138/86
[2017-05-15] MEDS ORDERED: Acetaminophen 650 MG SUPP RECTAL ONE ×2 (21:32→21:45)
--- NOTE | 2017-05-15 21:34 | Emergency Room Report ---
History of Present Illness General Chief Complaint: Fever Source: Medical Record, EMS Present Illness HPI Patient is a 71-year-old female sent in by senior living after increased fever. Patient had recently been diagnosed with urinary tract infection. She's been started on oral Keflex. The patient was noted to have positive blood culture and was contacted by this hospital. Patient had the been noted to have persistent fever. The patient was noted to have prior history of decreased mental status. History is limited by patient's poor historian and mental status alteration at baseline Allergies: Coded Allergies: No Known Allergies (Unverified , 04/30/16) Patient History Past Medical History: see triage record Reviewed Nursing Documentation: PMH: Agreed, PSxH: Agreed Nursing Documentation-PMH Hx Cardiac Problems: Yes - AFIB Hx Hypertension: Yes - Hyperlipidemia Hx Cancer: No Hx Gastrointestinal Problems: Yes - GERD Hx Neurological Problems: Yes Hx Cerebrovascular Accident: Yes Hx Dementia: Yes Review of Systems All Other Systems: limited - by mental status Physical Exam Vital Signs Date Time Temp Pulse Resp B/P (MAP) Pulse Ox O2 Delivery O2 Flow Rate FiO2 05/15/17 20:46 102.7 90 17 143/90 97 Room Air Sp02 EP Interpretation: reviewed, normal General Appearance: normal inspection, other - poor alertness, Chronically Ill Head: atraumatic ENT: normal ENT inspection, moist mucus membranes Neck: normal inspection, full range of motion, supple, no bony tend, limited range of motion Respiratory: normal inspection, lungs clear, normal breath sounds, no respiratory distress, no retraction Cardiovascular #1: regular rate, rhythm, no edema Gastrointestinal: normal inspection, no guarding, no hernia, tenderness Genitourinary: no CVA tenderness Musculoskeletal: normal inspection, back normal, normal range of motion Neurologic: responsive, motor weakness - generalized Psychiatric: depressed affect Skin: normal inspection, normal color, no rash Medical Decision Making Diagnostic Impression: Primary Impression: Sepsis Additional Impressions: Dementia Urinary tract infection ER Course Patient presented for fever. Differential diagnosis included wasn't limited to pneumonia, urinary tract infection, drug fever, allergic reaction, sepsis, cholecystitis, among others.Because of complexity of patient's case laboratory testing and imaging studies were ordered. Patient noted have recent blood cultures which for gram-positive cocci in clusters positive. Patient started on IV antibiotics. Blood cultures are obtained. Lactic acid levels were ordered . the patient's primary care physician is Dr. Gama. Dr. Dang was contacted for Dr. Fernando for inpatient management patient will be admitted to Dr. Fernando. Labs Test 05/15/17 21:00 White Blood Count 9.8 K/UL (4.8-10.8) Red Blood Count 4.69 M/UL (4.20-5.40) Hemoglobin 12.2 G/DL (12.0-16.0) Hematocrit 40.5 % (37.0-47.0) Mean Corpuscular Volume 86 FL (80-99) Mean Corpuscular Hemoglobin 26.1 PG (27.0-31.0) Mean Corpuscular Hemoglobin Concent 30.2 G/DL (32.0-36.0) Red Cell Distribution Width 14.7 % (11.6-14.8) Platelet Count 192 K/UL (150-450) Mean Platelet Volume 7.8 FL (6.5-10.1) Neutrophils (%) (Auto) 84.2 % (45.0-75.0) Lymphocytes (%) (Auto) 9.9 % (20.0-45.0) Monocytes (%) (Auto) 5.3 % (1.0-10.0) Eosinophils (%) (Auto) 0.1 % (0.0-3.0) Basophils (%) (Auto) 0.5 % (0.0-2.0) EKG Diagnostic Results Rate: normal Rhythm: NSR ST Segments: no acute changes Last Vital Signs Date Time Temp Pulse Resp B/P (MAP) Pulse Ox O2 Delivery O2 Flow Rate FiO2 05/15/17 20:46 102.7 90 17 143/90 97 Room Air Status: unchanged Disposition: ADMITTED INPATIENT Condition: Serious Referrals: PAULETTE VALLES (PCP) Kevin Gomez May 15, 2017 21:33
[2017-05-15 21:52] LABS: ANION GAP 9 mmol/L (5-15); CALCIUM 8.6 MG/DL (8.5-10.1); CARBON DIOXIDE 25 MMOL/L (21-32); CHLORIDE 108 MMOL/L (98-107); CREATININE 1.6 MG/DL (0.55-1.30); POTASSIUM 3.6 MMOL/L (3.5-5.1); SODIUM 142 MMOL/L (136-145)
[2017-05-15 22:06] LABS: ALANINE AMINOTRANSFERASE 24 U/L (12-78); ALBUMIN/GLOBULIN RATIO 0.4 (1.0-2.7); ASPARTATE AMINO TRANSFERASE 43 U/L (15-37); CKMB 1.6 NG/ML (0.0-3.6); TOTAL PROTEIN 8.8 G/DL (6.4-8.2)
[2017-05-15 22:07] LABS: REFLEX LACTIC ACID YES OR NO YES
[2017-05-15 22:30] VITALS: BP 126/83
[2017-05-15 22:50] LABS: APPEARANCE,URINE VERY CLOUDY; KETONES,URINE 1+ (NEGATIVE); LEUKOCYTE ESTERASE ,URINE 3+ (NEGATIVE); NITRITE,URINE POSITIVE (NEGATIVE); PH,URINE 5 (4.5-8.0); PROTEIN,URINE 4+ (NEGATIVE); UROBILINOGEN,URINE 1 MG/DL (0.0-1.0)
[2017-05-15 22:54] LABS: ICTOTEST NEGATIVE
[2017-05-15 23:08] LABS: BACTERIA,URINE MODERATE /HPF; RBC,URINE TNTC /HPF (0 - 2); SQUAMOUS EPITHELIAL CELL,UR FEW /LPF (NONE/OCC); WBC,URINE TNTC /HPF (0 - 2)
[2017-05-15 23:25] VITALS: BP 138/88
[2017-05-16] MEDS: HydrALAZINE 10mg Tab ORAL SCH ×4 (06:00→23:49)
[2017-05-16] MEDS ORDERED: Zosyn 3.375gm q8h **Extended infusion IVPB SCH ×2 (06:00)
[2017-05-16] MEDS: SulfASALAZine 500MG tab ORAL SCH ×3 (06:30→17:26)
[2017-05-16 08:00] VITALS: BP 149/96
[2017-05-16] MEDS ORDERED: Cephalexin 500mg cap ORAL SCH (09:00)
[2017-05-16] MEDS: PARoxetine 20mg tab ORAL SCH (09:16)
[2017-05-16] MEDS: Metoprolol Tartrate 50mg tab ORAL SCH ×2 (09:16→21:50)
[2017-05-16 10:34] LABS: APPEARANCE,URINE TURBID; KETONES,URINE 2+ (NEGATIVE); LEUKOCYTE ESTERASE ,URINE 2+ (NEGATIVE); NITRITE,URINE POSITIVE (NEGATIVE); PH,URINE 5 (4.5-8.0); PROTEIN,URINE 4+ (NEGATIVE); UROBILINOGEN,URINE 1 MG/DL (0.0-1.0)
[2017-05-16 10:53] LABS: BACTERIA,URINE MODERATE /HPF; ICTOTEST NEGATIVE; RBC,URINE 60-80 /HPF (0 - 2); SQUAMOUS EPITHELIAL CELL,UR FEW /LPF (NONE/OCC)
[2017-05-16 12:00] VITALS: BP 104/63
--- NOTE | 2017-05-16 12:02 | Diagnostic Imaging Report ---
Indication: Shortness of breath Technique: XRAY Chest 1v Comparison: 11/19/2016 Findings: Stable cardiomegaly. Atherosclerotic calcifications again noted in the aortic arch. Interstitial opacification with patchy bilateral airspace opacities. These findings are most likely loculated fluid overload/CHF. Superimposed pneumonia should be excluded clinically. Degenerative changes seen in the thoracic spine and bilateral shoulders. No acute osseous abnormality. Impression: Cardiomegaly and probable CHF/fluid overload. Superimposed pneumonia should be excluded clinically.
[2017-05-16] MEDS: Zosyn 3.375gm q8h **Extended infusion IVPB SCH ×4 (12:15→17:27)
[2017-05-16 16:00] VITALS: BP 144/94
--- NOTE | 2017-05-16 17:26 | Infectious Diseases Prog Note ---
Assessment/Plan Assessment/Plan Full consult dictated: A) 1) sepsis, uti, hx of esbl e.coli uti, gram + blood cultures (outside facility), fevers, sirs 2) pmh noted 3) allergies - negative P) 1) vancomycin and meropenem (esbl) 2) check uc, bc, labs and f/u chest x-ray 3) thank you Subjective Allergies: Coded Allergies: No Known Allergies (Unverified , 04/30/16) Objective Vital Signs Last 24 Hour Vital Signs Date Time Temp Pulse Resp B/P (MAP) Pulse Ox O2 Delivery O2 Flow Rate FiO2 05/16/17 16:00 97.6 100 19 144/94 99 Room Air 05/16/17 12:15 104/63 05/16/17 12:00 57 05/16/17 12:00 96.3 63 18 104/63 99 Room Air 05/16/17 09:16 82 149/96 05/16/17 09:16 82 149/96 05/16/17 09:15 149/96 05/16/17 08:00 69 05/16/17 08:00 97.6 82 19 149/96 97 Room Air 05/16/17 04:00 72 05/16/17 00:00 71 05/15/17 23:40 99.0 99 24 138/88 98 Room Air 05/15/17 23:25 99.0 99 24 138/88 98 Room Air 05/15/17 22:30 99.1 92 22 126/83 100 Room Air 05/15/17 21:30 103.3 90 18 138/86 98 Room Air 05/15/17 21:00 102.7 17 143/90 97 Room Air 05/15/17 20:46 102.7 90 17 143/90 97 Room Air Height (Feet): 5 Height (Inches): 4.00 Weight (Pounds): 150 Laboratory Tests Test 05/15/17 21:00 05/15/17 22:15 05/15/17 23:05 05/16/17 07:51 White Blood Count 9.8 K/UL (4.8-10.8) Red Blood Count 4.69 M/UL (4.20-5.40) Hemoglobin 12.2 G/DL (12.0-16.0) Hematocrit 40.5 % (37.0-47.0) Mean Corpuscular Volume 86 FL (80-99) Mean Corpuscular Hemoglobin 26.1 PG (27.0-31.0) L Mean Corpuscular Hemoglobin Concent 30.2 G/DL (32.0-36.0) L Red Cell Distribution Width 14.7 % (11.6-14.8) Platelet Count 192 K/UL (150-450) Mean Platelet Volume 7.8 FL (6.5-10.1) Neutrophils (%) (Auto) 84.2 % (45.0-75.0) H Lymphocytes (%) (Auto) 9.9 % (20.0-45.0) L Monocytes (%) (Auto) 5.3 % (1.0-10.0) Eosinophils (%) (Auto) 0.1 % (0.0-3.0) Basophils (%) (Auto) 0.5 % (0.0-2.0) Sodium Level 142 MMOL/L (136-145) Potassium Level 3.6 MMOL/L (3.5-5.1) Chloride Level 108 MMOL/L (98-107) H Carbon Dioxide Level 25 MMOL/L (21-32) Anion Gap 9 mmol/L (5-15) Blood Urea Nitrogen 28 mg/dL (7-18) H Creatinine 1.6 MG/DL (0.55-1.30) H Estimat Glomerular Filtration Rate mL/min (>60) Glucose Level 173 MG/DL (74-106) H Lactic Acid Level 2.00 mmol/L (0.66-2.22) 1.90 mmol/L (0.66-2.22) Calcium Level 8.6 MG/DL (8.5-10.1) Total Bilirubin 0.7 MG/DL (0.2-1.0) Aspartate Amino Transf (AST/SGOT) 43 U/L (15-37) H Alanine Aminotransferase (ALT/SGPT) 24 U/L (12-78) Alkaline Phosphatase 127 U/L (46-116) H Total Creatine Kinase 188 U/L (26-308) Creatine Kinase MB 1.6 NG/ML (0.0-3.6) Creatine Kinase MB Relative Index 0.8 Troponin I 0.099 ng/mL (0.000-0.056) Total Protein 8.8 G/DL (6.4-8.2) H Albumin 2.6 G/DL (3.4-5.0) L Globulin 6.2 g/dL Albumin/Globulin Ratio 0.4 (1.0-2.7) L Urine Color Brown Red Urine Appearance Very cloudy Turbid Urine pH 5 (4.5-8.0) 5 (4.5-8.0) Urine Specific [place] 1.015 (1.005-1.035) 1.020 (1.005-1.035) Urine Protein 4+ (NEGATIVE) H 4+ (NEGATIVE) H Urine Glucose (UA) Negative (NEGATIVE) Negative (NEGATIVE) Urine Ketones 1+ (NEGATIVE) H 2+ (NEGATIVE) H Urine Occult Blood 5+ (NEGATIVE) H 5+ (NEGATIVE) H Urine Nitrite Positive (NEGATIVE) H Positive (NEGATIVE) H Urine Bilirubin 1+ (NEGATIVE) H 1+ (NEGATIVE) H Urine Ictotest Negative Negative Urine Urobilinogen 1 MG/DL (0.0-1.0) H 1 MG/DL (0.0-1.0) H Urine Leukocyte Esterase 3+ (NEGATIVE) H 2+ (NEGATIVE) H Urine RBC Tntc /HPF (0 - 2) H 60-80 /HPF (0 - 2) H Urine WBC Tntc /HPF (0 - 2) H 10-15 /HPF (0 - 2) H Urine Squamous Epithelial Cells Few /LPF (NONE/OCC) Few /LPF (NONE/OCC) Urine Bacteria Moderate /HPF (NONE) H Moderate /HPF (NONE) H Current Medications Medications (Trade) Dose Ordered Sig/Renea Route PRN Reason Start Time Stop Time Status Last Admin Dose Admin Acetaminophen (Tylenol) 650 mg Q6H PRN ORAL Mild Pain/Temp > 100.5 05/16/17 03:15 06/15/17 03:14 Atorvastatin Calcium (Lipitor) 80 mg BEDTIME ORAL 05/16/17 21:00 06/15/17 20:59 Benazepril HCl (Lotensin) 40 mg BID ORAL 05/16/17 09:00 06/15/17 08:59 05/16/17 09:15 Cephalexin (Keflex) 500 mg FOUR TIMES A DAY ORAL 05/16/17 09:00 05/23/17 08:59 UNV Folic Acid (Folate) 1 mg DAILY ORAL 05/16/17 09:00 06/15/17 08:59 05/16/17 09:16 Gabapentin (Neurontin) 300 mg DAILY ORAL 05/16/17 09:00 06/15/17 08:59 05/16/17 09:13 Hydralazine HCl (Apresoline) 10 mg Q6HR ORAL 05/16/17 06:00 06/15/17 05:59 05/16/17 12:15 Methotrexate (metHOTREXate) 2.5 mg Th@0900 ORAL 05/21/17 09:00 05/26/17 08:59 Metoprolol Tartrate (Lopressor) 50 mg Q12HR ORAL 05/16/17 09:00 06/15/17 08:59 05/16/17 09:16 Mirtazapine (Remeron) 15 mg BEDTIME ORAL 05/16/17 21:00 06/15/17 20:59 Nifedipine (Procardia XL) 30 mg Q12HR ORAL 05/16/17 09:00 06/15/17 08:59 05/16/17 09:16 Pantoprazole (Protonix) 40 mg ACBREAKFAST ORAL 05/16/17 06:30 06/15/17 06:29 Paroxetine HCl (Paxil) 20 mg DAILY ORAL 05/16/17 09:00 06/15/17 08:59 05/16/17 09:16 Piperacillin Sod/ Tazobactam Sod 3.375 gm/Dextrose 55 ml @ 13.75 mls/ hr Q8H IVPB 05/16/17 09:00 05/23/17 08:59 05/16/17 12:15 Sulfasalazine (Azulfidine) 500 mg BEFORE MEALS ORAL 05/16/17 06:30 06/15/17 06:29 05/16/17 12:14 Vancomycin HCl (Vanco rx to dose) 1 ea DAILY PRN MISC Per rx protocol 05/16/17 02:45 06/15/17 02:44 Vancomycin/Sodium Chloride 250 ml @ 166.667 mls/hr Q24H IVPB 05/16/17 21:00 05/21/17 20:59 AMPARO HARRISON May 16, 2017 17:26
--- NOTE | 2017-05-16 17:38 | History and Physical ---
History of Present Illness General Date patient seen: May 16, 2017 Reason for Hospitalization: Fever Present Illness HPI 71 y/o female with a PMH of A. fibb, HTN, HLD, depression, GERD, and ulcerative colitis presents from SNF for positive blood cultures with gram positive cocci in clusters, UTI with ESBL, persistent fevers, and altered mental status. Patient is a poor historian due to altered mental status and further history was obtained from the chart. Patient was given oral keflex for UTI at facility but mentation worsened and was therefore brought to the ED. Patient was started on IV vancomycin and zosyn and a pruitt catheter was placed in ED. Trop was noted to be 0.09 and EKG showed atrial fibrillation with RVR. Patient's CXR was also noted to be fluid overloaded/CHF. Patient denies sob, chest pain, headaches , fevers/chills, n/v, abdominal pain, dysuria. Allergies: Coded Allergies: No Known Allergies (Unverified , 04/30/16) Medication History Scheduled Atorvastatin Calcium* (Lipitor*), 80 MG ORAL BEDTIME, (Reported) Benazepril Hcl* (Benazepril Hcl*), 40 MG ORAL TWICE A DAY, (Reported) Cephalexin* (Keflex*), 500 MG ORAL Q6H Folic Acid* (Folic Acid*), 1 MG ORAL DAILY, (Reported) Gabapentin* (Gabapentin*), 300 MG ORAL DAILY, (Reported) Hydralazine Hcl* (Hydralazine Hcl*), 10 MG ORAL EVERY 6 HOURS, (Reported) Labetalol HCl (Labetalol HCl), 200 MG ORAL Q6HR, (Reported) Lorazepam* (Ativan*), 0.5 MG ORAL THREE TIMES A DAY, (Reported) Metoprolol Tartrate* (Metoprolol Tartrate*), 50 MG ORAL EVERY 12 HOURS, ( Reported) Mirtazapine* (Remeron*), 15 MG ORAL BEDTIME, (Reported) Nifedipine (Nifedipine*), 30 MG ORAL EVERY 12 HOURS, (Reported) Omeprazole (Omeprazole), 20 MG ORAL DAILY, (Reported) Paroxetine Hcl* (Paxil*), 20 MG ORAL DAILY, (Reported) Sulfasalazine* (Azulfidine*), 500 MG ORAL BEFORE MEALS, (Reported) Trazodone* (Trazodone*), 12.5 MG ORAL BEDTIME, (Reported) Valsartan (Diovan), 80 MG ORAL DAILY, (Reported) Scheduled PRN Acetaminophen* (Acetaminophen 325MG Tablet*), 650 MG ORAL Q4H PRN for For Pain, (Reported) Tramadol Hcl* (Ultram*), 50 MG ORAL Q4HR PRN for For Pain, (Reported) Miscellaneous Medications Methotrexate Sodium* (Methotrexate*), 2.5 MG PO, (Reported) Patient History Limited by: medical condition History Provided By: Patient, Medical Record Healthcare decision maker Isiah Marquez Resuscitation status Full Code Advanced Directive on File Review of Systems All Other Systems: negative except mentioned in HPI Physical Exam General Appearance: no apparent distress, alert, confused HEENT: normocephalic, atraumatic, PERRL Neck: non-tender, normal alignment, supple Respiratory/Chest: chest wall non-tender, lungs clear, normal breath sounds, no respiratory distress Cardiovascular/Chest: normal peripheral pulses, regularly irregular Abdomen: normal bowel sounds, non tender, soft Genitourinary/Rectal: pruitt, other - +hematuria Extremities: normal range of motion Skin Exam: normal pigmentation, warm/dry 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, no motor/sensory deficits, alert Last 24 Hour Vital Signs Date Time Temp Pulse Resp B/P (MAP) Pulse Ox O2 Delivery O2 Flow Rate FiO2 05/16/17 16:00 97.6 100 19 144/94 99 Room Air 05/16/17 12:15 104/63 05/16/17 12:00 57 05/16/17 12:00 96.3 63 18 104/63 99 Room Air 05/16/17 09:16 82 149/96 05/16/17 09:16 82 149/96 17 09:15 149/96 05/16/17 08:00 69 05/16/17 08:00 97.6 82 19 149/96 97 Room Air 05/16/17 04:00 72 05/16/17 00:00 71 05/15/17 23:40 99.0 99 24 138/88 98 Room Air 05/15/17 23:25 99.0 99 24 138/88 98 Room Air 05/15/17 22:30 99.1 92 22 126/83 100 Room Air 05/15/17 21:30 103.3 90 18 138/86 98 Room Air 05/15/17 21:00 102.7 17 143/90 97 Room Air 05/15/17 20:46 102.7 90 17 143/90 97 Room Air Intake and Output 05/16/17 05/17/17 19:00 07:00 Intake Total 240 ml Output Total 250 ml Balance -10 ml Intake Oral 240 ml Output Urine Total 250 ml # Voids 1 # Bowel Movements 2 Laboratory Tests Test 05/15/17 21:00 05/15/17 22:15 05/15/17 23:05 05/16/17 07:51 White Blood Count 9.8 K/UL (4.8-10.8) Red Blood Count 4.69 M/UL (4.20-5.40) Hemoglobin 12.2 G/DL (12.0-16.0) Hematocrit 40.5 % (37.0-47.0) Mean Corpuscular Volume 86 FL (80-99) Mean Corpuscular Hemoglobin 26.1 PG (27.0-31.0) L Mean Corpuscular Hemoglobin Concent 30.2 G/DL (32.0-36.0) L Red Cell Distribution Width 14.7 % (11.6-14.8) Platelet Count 192 K/UL (150-450) Mean Platelet Volume 7.8 FL (6.5-10.1) Neutrophils (%) (Auto) 84.2 % (45.0-75.0) H Lymphocytes (%) (Auto) 9.9 % (20.0-45.0) L Monocytes (%) (Auto) 5.3 % (1.0-10.0) Eosinophils (%) (Auto) 0.1 % (0.0-3.0) Basophils (%) (Auto) 0.5 % (0.0-2.0) Sodium Level 142 MMOL/L (136-145) Potassium Level 3.6 MMOL/L (3.5-5.1) Chloride Level 108 MMOL/L (98-107) H Carbon Dioxide Level 25 MMOL/L (21-32) Anion Gap 9 mmol/L (5-15) Blood Urea Nitrogen 28 mg/dL (7-18) H Creatinine 1.6 MG/DL (0.55-1.30) H Estimat Glomerular Filtration Rate mL/min (>60) Glucose Level 173 MG/DL (74-106) H Lactic Acid Level 2.00 mmol/L (0.66-2.22) 1.90 mmol/L (0.66-2.22) Calcium Level 8.6 MG/DL (8.5-10.1) Total Bilirubin 0.7 MG/DL (0.2-1.0) Aspartate Amino Transf (AST/SGOT) 43 U/L (15-37) H Alanine Aminotransferase (ALT/SGPT) 24 U/L (12-78) Alkaline Phosphatase 127 U/L (46-116) H Total Creatine Kinase 188 U/L (26-308) Creatine Kinase MB 1.6 NG/ML (0.0-3.6) Creatine Kinase MB Relative Index 0.8 Troponin I 0.099 ng/mL (0.000-0.056) Total Protein 8.8 G/DL (6.4-8.2) H Albumin 2.6 G/DL (3.4-5.0) L Globulin 6.2 g/dL Albumin/Globulin Ratio 0.4 (1.0-2.7) L Urine Color Brown Red Urine Appearance Very cloudy Turbid Urine pH 5 (4.5-8.0) 5 (4.5-8.0) Urine Specific [place] 1.015 (1.005-1.035) 1.020 (1.005-1.035) Urine Protein 4+ (NEGATIVE) H 4+ (NEGATIVE) H Urine Glucose (UA) Negative (NEGATIVE) Negative (NEGATIVE) Urine Ketones 1+ (NEGATIVE) H 2+ (NEGATIVE) H Urine Occult Blood 5+ (NEGATIVE) H 5+ (NEGATIVE) H Urine Nitrite Positive (NEGATIVE) H Positive (NEGATIVE) H Urine Bilirubin 1+ (NEGATIVE) H 1+ (NEGATIVE) H Urine Ictotest Negative Negative Urine Urobilinogen 1 MG/DL (0.0-1.0) H 1 MG/DL (0.0-1.0) H Urine Leukocyte Esterase 3+ (NEGATIVE) H 2+ (NEGATIVE) H Urine RBC Tntc /HPF (0 - 2) H 60-80 /HPF (0 - 2) H Urine WBC Tntc /HPF (0 - 2) H 10-15 /HPF (0 - 2) H Urine Squamous Epithelial Cells Few /LPF (NONE/OCC) Few /LPF (NONE/OCC) Urine Bacteria Moderate /HPF (NONE) H Moderate /HPF (NONE) H Height (Feet): 5 Height (Inches): 4.00 Weight (Pounds): 150 Medications Current Medications Medications (Trade) Dose Ordered Sig/Renea Route PRN Reason Start Time Stop Time Status Last Admin Dose Admin Acetaminophen (Tylenol) 650 mg Q6H PRN ORAL Mild Pain/Temp > 100.5 05/16/17 03:15 06/15/17 03:14 Atorvastatin Calcium (Lipitor) 80 mg BEDTIME ORAL 05/16/17 21:00 06/15/17 20:59 Benazepril HCl (Lotensin) 40 mg BID ORAL 05/16/17 09:00 06/15/17 08:59 05/16/17 09:15 Cephalexin (Keflex) 500 mg FOUR TIMES A DAY ORAL 05/16/17 09:00 05/23/17 08:59 UNV Folic Acid (Folate) 1 mg DAILY ORAL 05/16/17 09:00 06/15/17 08:59 05/16/17 09:16 Gabapentin (Neurontin) 300 mg DAILY ORAL 05/16/17 09:00 06/15/17 08:59 05/16/17 09:13 Hydralazine HCl (Apresoline) 10 mg Q6HR ORAL 05/16/17 06:00 06/15/17 05:59 05/16/17 12:15 Methotrexate (metHOTREXate) 2.5 mg Th@0900 ORAL 05/21/17 09:00 05/26/17 08:59 Metoprolol Tartrate (Lopressor) 50 mg Q12HR ORAL 05/16/17 09:00 06/15/17 08:59 05/16/17 09:16 Mirtazapine (Remeron) 15 mg BEDTIME ORAL 05/16/17 21:00 06/15/17 20:59 Nifedipine (Procardia XL) 30 mg Q12HR ORAL 05/16/17 09:00 06/15/17 08:59 05/16/17 09:16 Pantoprazole (Protonix) 40 mg ACBREAKFAST ORAL 05/16/17 06:30 06/15/17 06:29 Paroxetine HCl (Paxil) 20 mg DAILY ORAL 05/16/17 09:00 06/15/17 08:59 05/16/17 09:16 Piperacillin Sod/ Tazobactam Sod 3.375 gm/Dextrose 55 ml @ 13.75 mls/ hr Q8H IVPB 05/16/17 09:00 05/23/17 08:59 05/16/17 12:15 Sulfasalazine (Azulfidine) 500 mg BEFORE MEALS ORAL 05/16/17 06:30 06/15/17 06:29 05/16/17 12:14 Vancomycin HCl (Vanco rx to dose) 1 ea DAILY PRN MISC Per rx protocol 05/16/17 02:45 06/15/17 02:44 Vancomycin/Sodium Chloride 250 ml @ 166.667 mls/hr Q24H IVPB 05/16/17 21:00 05/21/17 20:59 Assessment/Plan Problem List: (1) Bacteremia Assessment & Plan: Gram positive cocci in clusters in blood cultures noted in outside facility ICD Codes: R78.81 - Bacteremia SNOMED: 5623497 (2) Acute kidney injury ICD Codes: N17.9 - Acute kidney failure, unspecified SNOMED: 92205830 (3) Elevated troponin ICD Codes: R74.8 - Abnormal levels of other serum enzymes SNOMED: 569363415, 120096239 (4) CHF (congestive heart failure) ICD Codes: I50.9 - Heart failure, unspecified SNOMED: 14574850 (5) UTI (urinary tract infection) ICD Codes: N39.0 - Urinary tract infection, site not specified SNOMED: 82245478 (6) Sepsis ICD Codes: A41.9 - Sepsis, unspecified organism SNOMED: 96666764 (7) Depression ICD Codes: F32.9 - Major depressive disorder, single episode, unspecified SNOMED: 25519498 (8) HTN (hypertension) ICD Codes: I10 - Essential (primary) hypertension SNOMED: 67590357 (9) Dementia ICD Codes: F03.90 - Unspecified dementia without behavioral disturbance SNOMED: 21859538 (10) Atrial fibrillation ICD Codes: I48.91 - Unspecified atrial fibrillation SNOMED: 43381416 Status: stable Assessment/Plan - Admit to inpatient #bacteremia/sepsis due to UTI - f/u urine culture and blood culture - previous facility showing ESBL in urine and blood cultures with gram positive cocci in clusters - hold xarelto in the setting of hematuria - continue pruitt and irrigate with normal saline prn - continue IV vancomycin and zosyn - ID consulted #elevated trops - Continue tele monitoring - Trend troponins - Check ECHO #SUNNY - continue IVF - trend Cr - hold ACEi/ARB #HTN - continue home BP meds #Depression - continue home psych meds D/w RN, patient, and ID. Total patient care time spent 45 minutes. Dispo planning: back to SNF once medically stable Hattie Sow N.P. May 16, 2017 17:37
[2017-05-16 19:15] LABS: LACTATE DEHYDROGENASE 354 U/L (81-234)
[2017-05-16 20:50] LABS: LYMPHOCYTES % (AUTO) 19.1 % (20.0-45.0); MEAN CORPUSCULAR HEMOGLOBIN 27.4 PG (27.0-31.0); MEAN CORPUSCULAR HGB CONC 30.9 G/DL (32.0-36.0); MEAN CORPUSCULAR VOLUME 89 FL (80-99); MEAN PLATELET VOLUME 7.2 FL (6.5-10.1); MONOCYTES % (AUTO) 4.9 % (1.0-10.0); PLATELET COUNT 179 K/UL (150-450); RED BLOOD COUNT 4.18 M/UL (4.20-5.40); RED CELL DISTRIBUTION WIDTH 14.9 % (11.6-14.8); WHITE BLOOD COUNT 5.3 K/UL (4.8-10.8)
[2017-05-16 21:00] VITALS: BP 152/99
[2017-05-16] MEDS ORDERED: Heparin 5000 units/ml inj IV ONE (21:00)
[2017-05-16] MEDS ORDERED: Heparin 25,000u/D5W 500ml 500 ML IV SCH (21:05)
[2017-05-16 21:17] LABS: INR 1.1 (0.9-1.1)
[2017-05-16] MEDS: Atorvastatin 80mg tab ORAL SCH (21:50)
[2017-05-16] MEDS: Vancomycin 750mg/NS 250ml IVPB SCH (21:50)
[2017-05-16 22:15] VITALS: BP 140/76
[2017-05-17 01:30] VITALS: BP 137/87
[2017-05-17 04:22] VITALS: BP 148/91
--- NOTE | 2017-05-17 05:45 | Consultation ---
DATE OF CONSULTATION: 05/16/2017 INFECTIOUS DISEASES CONSULTATION CONSULTING PHYSICIAN: Bella Valdes M.D. REFERRING PHYSICIAN: Melanie Byrne M.D. I was asked by nurse Leland practitioner for Dr. Byrne to see this patient. REASON FOR CONSULTATION: Sepsis, history of E. coli UTI. The patient has UTI, pyelonephritis. The patient has fevers and gram-positive bacteremia. The patient's chief complaint coming in to the hospital is sepsis, fevers, SIRS criteria. HISTORY OF PRESENT ILLNESS: This is a very pleasant 71-year-old female who comes from an outside facility. Earlier in the month, she had a urinary tract infection with ESBL E. coli. The patient was transferred to [facility] because of increase in temperature or fevers. Here at [facility], her temperature was 103.3. She also has elevated heart rate and she has elevated consistent with SIRS criteria and sepsis. An Infectious Diseases consultation is requested for antibiotic management. The patient was placed on meropenem and vancomycin based on sensitivities of previous E. coli UTI. Workup here shows that she has a persistent UTI and likely pyelonephritis with fevers. Discussed with Gail Sosa, nurse practitioner for Dr. Byrne. The patient has a positive blood culture from outside facility, I believe the ECF with gram-positive organisms. Identification at this time is pending. Cultures here at [facility] are pending. MAR was noted. Orders were noted. Notes and records were reviewed. Case was reviewed with Gail Sosa nurse practitioner for Dr. Byrne. PAST MEDICAL HISTORY: From the records, the patient has multiple medical problems including elevated creatinine. She has a history of anemia, history of UTI, history of cerebral infarction and generalized weakness, history of GERD, history of dysphagia, history of anxiety, and history of depression. I believe she has history of hypertension, also history of ESBL E. coli UTI and positive urinalysis, depression, anxiety, GERD, dementia, and dysphagia. She has a history of hyperlipidemia, atrial fibrillation, CVA and dementia. No mention of diabetes or hypertension, however, she is on an antihypertensive medication, suggest she could have a history of hypertension, but I am not completely clear on this. Of note, here in the [facility], her blood pressure is elevated. She also has elevated blood glucose here. MEDICATIONS: Upon reviewing the MAR, she is on the following medications. She was given antibiotics. I am going to put on meropenem and vancomycin. She was on Keflex, which I discontinued. She is on atorvastatin. She is on acetaminophen. She is on benazepril and Lotensin. She is on folic acid, gabapentin, hydralazine, methotrexate, metoprolol, mirtazapine, nifedipine, pantoprazole, paroxetine or Paxil, and Azulfidine. Unclear whey she is on Azulfidine at this time. I am not sure if she has any other medical problems. She also has a history of anemia, elevated creatinine, likely possible chronic renal failure, but I am not sure. No history of she is not anemic at this time. She also has a history of neurological disease. ALLERGIES: No known drug allergies. No antibiotic allergies. SOCIAL HISTORY: Negative for smoking, alcohol, or drug abuse. FAMILY HISTORY: Noncontributory. Negative for exposure to tuberculosis or cancer. REVIEW OF SYSTEMS: CONSTITUTIONAL: She has a Prather. She has no central line. She has generalized weakness and fatigue, fevers and chills. No weight loss or night sweats. HEAD AND NECK: No thrush, dysphagia, headache, or neck stiffness. CARDIAC: No chest pain. GASTROINTESTINAL: No nausea, vomiting, or diarrhea. GENITOURINARY: She has a Prather. PULMONARY: No congestion or shortness of breath. No secretions or hemoptysis. SKIN: No rash or itching. EXTREMITIES: No extremity pain. NEUROLOGICAL: No seizures. Generalized weakness and fatigue. PHYSICAL EXAMINATION: GENERAL: Alert, responsive, no acute distress. She is resting comfortably. VITAL SIGNS: T-max 103.3 degrees, pulse rate is 100, respiratory rate is high at 24, blood pressure 144/94 and saturation 99% on room air. Temperature now is 97.6 degrees. HEAD AND NECK: Oral exam, no thrush. Eye exam, no icterus. Normocephalic. No facial droop. No neck stiffness. Neck is supple. HEART: Regular. No gallop or murmur. Occasional tachycardic. ABDOMEN: Soft. Positive bowel sounds. Nontender. No organomegaly. LUNGS: Few bilateral rhonchi and crackles. Questionable rales, but no obvious rales. SKIN: No rash. MUSCULOSKELETAL: No effusion. Legs are without phlebitis. PERIPHERAL VASCULAR: No cyanosis or gangrene. GENITOURINARY: She has a Prather. Urine is cloudy. LINE SITES: Line sites are without phlebitis. NEUROLOGIC: Weak, but responsive. Nonfocal. LABORATORY AND DIAGNOSTIC DATA: White count 9.8 and hemoglobin 12.2. Creatinine is 1.6. LFTs were noted. The patient's imaging studies showed and most consistent with cardiomegaly and congestive heart failure fluid overload, can't rule out pneumonia. The report was noted and reviewed. The cultures are pending. Urinalysis had 3+ leukocyte esterase, too many to count white blood cells and moderate bacteria. Outside urine culture grew out ESBL E. coli earlier in the month. Per discussion with Gail Sosa nurse practitioner blood cultures had gram-positive organisms. ASSESSMENT AND PLAN: 1. The patient has sepsis, fevers, systemic inflammatory response syndrome criteria. She likely has a urinary tract infection/pyelonephritis with history of E. coli urinary tract infection. She also has possible gram-positive bacteremia with gram-positive blood cultures. It is unclear as the pathogen are contaminant. Based on the above differential diagnosis and data, the patient should be placed on meropenem and vancomycin to cover gram-positive bacteremia and also to cover ESBL E. coli was intermediate to Zosyn, but was sensitive to carbapenem. Continue meropenem and vancomycin. Check urine culture, blood cultures, labs, and chest x-ray. Watch creatinine closely on vancomycin. 2. The patient has a history of hyperlipidemia. 3. Elevated creatinine. 4. Possible chronic renal failure. 5. Cerebrovascular accident. 6. Likely hypertension based on medications. 7. The patient is on Azulfidine, unclear why. 8. Anxiety. 9. Depression. 10. Dementia. 11. Dysphagia. 12. Gastroesophageal reflux disease. 13. Decrease in walking. 14. Weakness. 15. Cerebral infarction. 16. History of urinary tract infection. 17. Dementia per the records. 18. Past medical history noted. 19. No known allergies. 20. Social history negative. 21. Family history is noncontributory. 22. MAR was noted. 23. Case discussed with RN. 24. Case discussed with Gail Sosa, nurse practitioner for Dr. Byrne. 25. Continue treatment per primary consultants. 26. Skin care protocol. Bella Valdes M.D. DR: LETY JOB#: [id number] CC:
[2017-05-17] MEDS: HydrALAZINE 10mg Tab ORAL SCH ×4 (06:20→23:43)
[2017-05-17] MEDS: SulfASALAZine 500MG tab ORAL SCH ×3 (06:25→16:06)
[2017-05-17 06:43] LABS: ANION GAP 9 mmol/L (5-15); CALCIUM 7.9 MG/DL (8.5-10.1); CARBON DIOXIDE 25 MMOL/L (21-32); CHLORIDE 109 MMOL/L (98-107); CREATININE 1.1 MG/DL (0.55-1.30); POTASSIUM 3.8 MMOL/L (3.5-5.1); SODIUM 143 MMOL/L (136-145)
[2017-05-17 06:47] LABS: BASOPHILS % (AUTO) 1.4 % (0.0-2.0); EOSINOPHILS % (AUTO) 0.2 % (0.0-3.0); LYMPHOCYTES % (AUTO) 34.2 % (20.0-45.0); MEAN CORPUSCULAR HEMOGLOBIN 28.5 PG (27.0-31.0); MEAN CORPUSCULAR HGB CONC 32.9 G/DL (32.0-36.0); MEAN CORPUSCULAR VOLUME 87 FL (80-99); MEAN PLATELET VOLUME 7.5 FL (6.5-10.1); MONOCYTES % (AUTO) 10.4 % (1.0-10.0); NEUTROPHILS % (AUTO) 53.9 % (45.0-75.0); PLATELET COUNT 170 K/UL (150-450); RED BLOOD COUNT 4.13 M/UL (4.20-5.40); RED CELL DISTRIBUTION WIDTH 14.9 % (11.6-14.8); WHITE BLOOD COUNT 5.3 K/UL (4.8-10.8)
[2017-05-17 08:00] VITALS: BP 153/99
[2017-05-17] MEDS: PARoxetine 20mg tab ORAL SCH (10:35)
[2017-05-17] MEDS: Metoprolol Tartrate 50mg tab ORAL SCH ×2 (10:35→23:44)
[2017-05-17 12:00] VITALS: BP 138/98
--- NOTE | 2017-05-17 13:29 | Diagnostic Imaging Report ---
Indication: Infection Technique: XRAY Chest 1v Comparison: 09/13/2016 Findings: Stable cardiomegaly. Interstitial opacification/edema has slightly improved. There is no focal airspace consolidation. No pleural effusion or pneumothorax. No acute osseous abnormality seen. Impression: Slight interval improvement of interstitial edema/opacification.
--- NOTE | 2017-05-17 13:57 | Cardiology Report ---
APPROVED REPORT EXAM: Two-dimensional and M-mode echocardiogram with Doppler and color Doppler. INDICATION Congestive Heart Failure M-Mode DIMENSIONS IVSd1.2 (0.7-1.1cm)Left Atrium (MM)6.3 (1.6-4.0cm) LVDd4.3 (3.5-5.6cm)Aortic Root3.1 (2.0-3.7cm) PWd1.5 (0.7-1.1cm)Aortic Cusp Exc.1.1 (1.5-2.0cm) LVDs2.8 (2.5-4.0cm) PWs1.7 cm Technically difficult study due to poor parasternal windows. Study quality precludes accurate assessment of regional wall motion. Normal left ventricular chamber size, systolic function and wall motion. Left ventricular ejection fraction estimated to be 55 %. Mild left ventricular hypertrophy. No evidence of pericardial effusion. Severe left atrial enlargement. Moderate right atrial enlargement. Right ventricular chamber size is within normal limits. Moderate focal aortic valve sclerosis with minimal cusp excursion. Moderately thickened mitral valve leaflets with normal excursion. Echogenic materical noted on posterior mitral valve leaflet. Mild mitral annulus and aortic root calcification. Normal pulmonic valve structure. Normal tricuspid valve structure. IVC measures at 1.9 cm with physiologic collapse suggestive of increased RA pressure. A color flow and spectral Doppler study was performed and revealed: Mild to moderate aortic regurgitation. Mild mitral regurgitation. Mitral inflow indicates restrictive pattern, implying severely elevated left atrial pressure (Grade III ). Mild to moderate tricuspid regurgitation. Tricuspid systolic velocities suggests peak right ventricular systolic pressure of 59 mmHg, consistent with moderate to severe pulmonary hypertension. Trace pulmonic regurgitation present.
[2017-05-17] MEDS ORDERED: Tubing IV Secondary IV ONE ×2 (15:21→17:26)
[2017-05-17 16:00] VITALS: BP 151/96
[2017-05-17] MEDS: LORazepam Inj 2mg/ml 1ml IV PRN (16:06)
[2017-05-17] MEDS ORDERED: NS 500ML ONE (17:26)
--- NOTE | 2017-05-17 18:01 | General Progress Note ---
Assessment/Plan Problem List: (1) Bacteremia Assessment & Plan: Gram positive cocci in clusters in blood cultures noted in outside facility ICD Codes: R78.81 - Bacteremia SNOMED: 1969637 (2) Acute kidney injury ICD Codes: N17.9 - Acute kidney failure, unspecified SNOMED: 28298508 (3) Elevated troponin ICD Codes: R74.8 - Abnormal levels of other serum enzymes SNOMED: 966653701, 523225256 (4) CHF (congestive heart failure) ICD Codes: I50.9 - Heart failure, unspecified SNOMED: 34038291 (5) UTI (urinary tract infection) ICD Codes: N39.0 - Urinary tract infection, site not specified SNOMED: 80285214 (6) Sepsis ICD Codes: A41.9 - Sepsis, unspecified organism SNOMED: 72101679 (7) Depression ICD Codes: F32.9 - Major depressive disorder, single episode, unspecified SNOMED: 44563329 (8) HTN (hypertension) ICD Codes: I10 - Essential (primary) hypertension SNOMED: 34476915 (9) Dementia ICD Codes: F03.90 - Unspecified dementia without behavioral disturbance SNOMED: 43904003 (10) Atrial fibrillation ICD Codes: I48.91 - Unspecified atrial fibrillation SNOMED: 41152492 Status: not improved Assessment/Plan #bacteremia/sepsis due to UTI - urine culture with gram negative baccili - blood culture NGTD - previous facility showing ESBL in urine and blood cultures with gram positive cocci in clusters - continue pruitt and irrigate with normal saline prn - IV vancomycin and meropenam (05/16 - ) per ID - ID consulted. appreciate recs #elevated trops/NSTEMI - Continue tele monitoring - BNP 13,000s - Trend troponins - EKG with p. A. fibb - ECHO with 55% EF, moderate to severe pulmonary hypertension, and elevated RA pressure - continue heparin gtt - cardiology consulted #SUNNY - continue IVF - trend Cr - hold ACEi/ARB - RESOLVED #HTN - continue home BP meds #Depression - continue home psych meds D/w RN, patient, ID, and cards regarding plan of care. Total patient care time spent 35 minutes. Dispo planning: back to SNF once medically stable Subjective Date patient seen: May 17, 2017 Allergies: Coded Allergies: No Known Allergies (Unverified , 04/30/16) Subjective - troponins elevated, started on heparin gtt overnight - more lethargic today - urine still pink-tinged in pruitt - seen by ID Objective Last 24 Hour Vital Signs Date Time Temp Pulse Resp B/P (MAP) Pulse Ox O2 Delivery O2 Flow Rate FiO2 05/17/17 16:00 97.2 58 20 151/96 96 Nasal Cannula 05/17/17 12:00 97.0 71 20 138/98 98 Nasal Cannula 71 71 05/17/17 12:00 69 05/17/17 11:13 153/99 05/17/17 10:36 76 153/99 05/17/17 10:35 76 153/99 05/17/17 08:00 76 05/17/17 08:00 97.0 71 20 153/99 95 Nasal Cannula 71 76 05/17/17 06:20 148/91 05/17/17 04:22 96.6 76 18 148/91 91 Nasal Cannula 76 76 05/17/17 04:00 73 05/17/17 01:30 96.8 70 18 137/87 84 Room Air 70 70 05/17/17 00:00 72 05/16/17 23:49 140/76 05/16/17 22:15 98.1 105 20 140/76 Room Air 05/16/17 21:50 83 144/94 05/16/17 21:50 83 144/94 05/16/17 20:00 101 Intake and Output 05/17/17 05/18/17 19:00 07:00 Intake Total 337.92 ml Balance 337.92 ml Intake Oral 240 ml IV Total 97.92 ml # Bowel Movements 2 Laboratory Tests 05/16/17 18:11: Lactate Dehydrogenase 354H, Troponin I 0.123H, Pro-B-Type Natriuretic Peptide 16306X 05/16/17 18:39: White Blood Count 5.3, Red Blood Count 4.18L, Hemoglobin 11.5L, Hematocrit 37.2 , Mean Corpuscular Volume 89, Mean Corpuscular Hemoglobin 27.4, Mean Corpuscular Hemoglobin Concent 30.9L, Red Cell Distribution Width 14.9H, Platelet Count 179, Mean Platelet Volume 7.2, Neutrophils (%) (Auto) 75.0, Lymphocytes (%) (Auto) 19.1L, Monocytes (%) (Auto) 4.9, Eosinophils (%) (Auto) 0.0, Basophils (%) (Auto) 1.0 05/16/17 20:54: Prothrombin Time 12.0H, Prothromb Time International Ratio 1.1, Activated Partial Thromboplast Time 35H 05/17/17 00:30: Troponin I 0.091H 05/17/17 06:10: White Blood Count 5.3, Red Blood Count 4.13L, Hemoglobin 11.8L, Hematocrit 35.8L , Mean Corpuscular Volume 87, Mean Corpuscular Hemoglobin 28.5, Mean Corpuscular Hemoglobin Concent 32.9, Red Cell Distribution Width 14.9H, Platelet Count 170, Mean Platelet Volume 7.5, Neutrophils (%) (Auto) 53.9, Lymphocytes (%) (Auto) 34.2, Monocytes (%) (Auto) 10.4H, Eosinophils (%) (Auto) 0.2, Basophils (%) (Auto) 1.4, Activated Partial Thromboplast Time 88H, Sodium Level 143, Potassium Level 3.8, Chloride Level 109H, Carbon Dioxide Level 25, Anion Gap 9, Blood Urea Nitrogen 21H, Creatinine 1.1, Estimat Glomerular Filtration Rate , Glucose Level 72#L, Calcium Level 7.9L, Troponin I 0.076H 05/17/17 11:45: Activated Partial Thromboplast Time 81H Height (Feet): 5 Height (Inches): 4.00 Weight (Pounds): 150 General Appearance: lethargic EENT: PERRL/EOMI Neck: non-tender, normal alignment, supple Cardiovascular: normal peripheral pulses, regularly irregular Respiratory/Chest: chest wall non-tender, lungs clear, normal breath sounds, no respiratory distress Abdomen: normal bowel sounds, non tender, soft Neurologic: expansion joint finisher II-XII grossly normal, no motor/sensory deficits, alert Skin: normal pigmentation, warm/dry Hattie Sow N.P. May 17, 2017 18:01
--- NOTE | 2017-05-17 19:55 | Cardiology Progress Note ---
Assessment/Plan Assessment/Plan The patient is seen and examined, full consult note is dictated. Objective Last 24 Hour Vital Signs Date Time Temp Pulse Resp B/P (MAP) Pulse Ox O2 Delivery O2 Flow Rate FiO2 05/17/17 18:06 151/96 05/17/17 16:00 97.2 58 20 151/96 96 Nasal Cannula 05/17/17 16:00 78 05/17/17 12:00 97.0 71 20 138/98 98 Nasal Cannula 71 71 05/17/17 12:00 69 05/17/17 11:13 153/99 05/17/17 10:36 76 153/99 05/17/17 10:35 76 153/99 05/17/17 08:00 76 05/17/17 08:00 97.0 71 20 153/99 95 Nasal Cannula 71 76 05/17/17 06:20 148/91 05/17/17 04:22 96.6 76 18 148/91 91 Nasal Cannula 76 76 05/17/17 04:00 73 05/17/17 01:30 96.8 70 18 137/87 84 Room Air 70 70 05/17/17 00:00 72 05/16/17 23:49 140/76 05/16/17 22:15 98.1 105 20 140/76 Room Air 05/16/17 21:50 83 144/94 05/16/17 21:50 83 144/94 05/16/17 20:00 101 Intake and Output 05/17/17 05/18/17 19:00 07:00 Intake Total 457.92 ml Output Total 400 ml Balance 57.92 ml Intake Oral 360 ml IV Total 97.92 ml Output Urine Total 400 ml # Bowel Movements 2 Laboratory Tests Test 05/16/17 20:54 05/17/17 00:30 05/17/17 06:10 05/17/17 11:45 Prothrombin Time 12.0 SEC (9.30-11.50) H Prothromb Time International Ratio 1.1 (0.9-1.1) Activated Partial Thromboplast Time 35 SEC (23-33) H 88 SEC (23-33) H 81 SEC (23-33) H Troponin I 0.091 ng/mL (0.000-0.056) 0.076 ng/mL (0.000-0.056) White Blood Count 5.3 K/UL (4.8-10.8) Red Blood Count 4.13 M/UL (4.20-5.40) L Hemoglobin 11.8 G/DL (12.0-16.0) L Hematocrit 35.8 % (37.0-47.0) L Mean Corpuscular Volume 87 FL (80-99) Mean Corpuscular Hemoglobin 28.5 PG (27.0-31.0) Mean Corpuscular Hemoglobin Concent 32.9 G/DL (32.0-36.0) Red Cell Distribution Width 14.9 % (11.6-14.8) H Platelet Count 170 K/UL (150-450) Mean Platelet Volume 7.5 FL (6.5-10.1) Neutrophils (%) (Auto) 53.9 % (45.0-75.0) Lymphocytes (%) (Auto) 34.2 % (20.0-45.0) Monocytes (%) (Auto) 10.4 % (1.0-10.0) H Eosinophils (%) (Auto) 0.2 % (0.0-3.0) Basophils (%) (Auto) 1.4 % (0.0-2.0) Sodium Level 143 MMOL/L (136-145) Potassium Level 3.8 MMOL/L (3.5-5.1) Chloride Level 109 MMOL/L (98-107) H Carbon Dioxide Level 25 MMOL/L (21-32) Anion Gap 9 mmol/L (5-15) Blood Urea Nitrogen 21 mg/dL (7-18) H Creatinine 1.1 MG/DL (0.55-1.30) Estimat Glomerular Filtration Rate mL/min (>60) Glucose Level 72 MG/DL (74-106) #L Calcium Level 7.9 MG/DL (8.5-10.1) L Test 05/17/17 18:00 Activated Partial Thromboplast Time 73 SEC (23-33) H Microbiology Date/Time Source Procedure Growth Status 05/15/17 21:05 Blood Blood Culture - Preliminary NO GROWTH AFTER 24 HOURS Resulted 05/15/17 21:00 Blood Blood Culture - Preliminary NO GROWTH AFTER 24 HOURS Resulted 05/15/17 22:15 Urine,Clean Catch Urine Culture - Preliminary Gram Negative Bacillus 1 Resulted BRODY MORAN May 17, 2017 19:55
[2017-05-17 20:00] VITALS: BP 145/100
[2017-05-17] MEDS: Vancomycin 750mg/NS 250ml IVPB SCH (23:42)
[2017-05-17] MEDS: Meropenem 1gm in NS 55ml IVPB SCH (23:42)
[2017-05-17] MEDS: Eliquis 2.5mg tablet ORAL SCH (23:43)
[2017-05-17] MEDS: Atorvastatin 80mg tab ORAL SCH (23:43)
[2017-05-18] VITALS: BP 158/110
--- NOTE | 2017-05-18 02:15 | Consultation ---
DATE OF CONSULTATION: 05/17/2017 CARDIOLOGY CONSULTATION CONSULTING PHYSICIAN: Naveen Pickett M.D. REFERRING PHYSICIAN: Melanie Byrne M.D. REASON FOR CONSULTATION: Management of atrial fibrillation and elevated troponin level. HISTORY OF PRESENT ILLNESS: The patient is a very unfortunate 71-year-old lady, who is a very poor historian due to underlying dementia, who was brought in from [facility] facility for evaluation of worsening of altered level of consciousness and management of urinary tract infection. The patient was started on IV vancomycin and Zosyn and Prather catheter was placed in the emergency department. In the emergency department, the troponin I level was noted to be elevated at 0.09. The patient was admitted to telemetry for evaluation and management of possible non-ST elevation myocardial infarction versus troponin leak due to noncardiac causes. A 12-lead electrocardiogram was also significant for atrial fibrillation with rapid ventricular response. Chest x-ray was also significant for cardiomegaly and pulmonary vascular congestion and interstitial edema. Initial blood pressure on arrival to the hospital was 143/90 with heart rate of 90, she was febrile at 102.7 degrees Fahrenheit, and O2 saturation of 97% on room air. PAST MEDICAL HISTORY: Significant for, 1. History of chronic atrial fibrillation. 2. Hypertension. 3. Hyperlipidemia. 4. Depression. 5. GERD. 6. Ulcerative colitis. 7. History of UTI with ESBL. 8. History of dementia. MEDICATIONS: Including atorvastatin 80 mg p.o. daily, benazepril 40 mg p.o. twice daily, cephalexin 500 mg q.6 h., folic acid 1 mg p.o. daily, gabapentin 300 mg daily, hydralazine 10 mg p.o. q.6 h., labetalol 200 mg q.6 h., lorazepam 0.5 mg three times a day, metoprolol 50 mg q.12 h., Remeron 50 mg at bedtime, nifedipine 30 mg q.12 h., omeprazole mg p.o. daily, paroxetine 20 mg p.o. daily, sulfasalazine 500 mg before meals, trazodone 12.5 mg at bedtime, and valsartan 80 mg p.o. daily. ALLERGIES: No known drug allergies. FAMILY HISTORY: No premature coronary artery disease in first-degree relatives. REVIEW OF SYSTEMS: A 12-system review cannot be obtained due to the patient's underlying dementia. PHYSICAL EXAMINATION: VITAL SIGNS: Blood pressure is 143/90, respirations of 17, pulse of 90, temperature 102.7 degrees Fahrenheit, and O2 saturation 97% on room air. GENERAL: The patient is a very unfortunate 71-year-old female, in no apparent respiratory distress. Appears to be demented, confused, and not coherent. HEENT: Atraumatic and normocephalic. Anicteric. Pupils are equal, round, and reactive to light and accommodation. Conjunctival pallor is present. NECK: JVP is less than 5 cm. No carotid bruit. Carotid upstrokes 2+ bilaterally. CARDIOVASCULAR: Normal S1 and S2. Irregularly irregular rhythm. A 2/6 mid systolic murmur at the left sternal border. PMI is at fourth intercostal space in the midclavicular line. LUNGS: Clear to auscultation bilaterally. ABDOMEN: Soft, nontender, and nondistended. No hepatosplenomegaly. Positive bowel sounds. EXTREMITIES: No evidence of edema, clubbing, or cyanosis. LABORATORY AND DIAGNOSTIC FINDINGS: WBC is 9.8, hemoglobin 12.2, hematocrit 40.5, and platelet count is 192. Sodium is 142, potassium 3.6, chloride 108, bicarbonate 25, BUN 28, creatinine 1.6, and glucose is 173. Troponin I is 0.099 and went up to 0.123 and 0.091. ProBNP was 13,794. INR is 1.1. Chest x-ray showed cardiomegaly with pulmonary vascular congestion and interstitial edema. A 2D echocardiography showed severe left ventricular hypertrophy with LVEF of approximately 55%. There is severe left atrial enlargement, moderate right atrial enlargement, diastolic data could not be evaluated due to underlying atrial fibrillation, and right ventricular systolic pressure approximately 59 mmHg consistent with moderate to severe pulmonary hypertension. There was mild aortic regurgitation as well as mitral regurgitation. ASSESSMENT AND PLAN: The patient is a very unfortunate 71-year-old female, seen in Cardiology consultation at the request of Dr. Byrne. 1. Chronic atrial fibrillation. The patient will be continued on metoprolol 50 mg twice daily. The question is whether the patient requires anticoagulation therapy, given the patient's risk factors for hypertension being female and age above 65. She is automatic qualified based on CHADS-VASC. She requires to be on Eliquis 5 mg twice daily, which will be ordered. 2. Slight elevation of troponin I level, could be secondary to non-ST elevation myocardial infarction or demand ischemia. Given the patient's dementia, I would pursue a conservative management with atorvastatin double product control with metoprolol and aspirin. 3. Sepsis with urinary tract infection. 4. History of dementia. I would like to thank, Dr. Byrne, for courtesy of this consultation. Naveen Pickett M.D. DR: UMER JOB#: [id number] CC:
[2017-05-18] MEDS: LORazepam Inj 2mg/ml 1ml IV PRN (03:50)
[2017-05-18 04:00] VITALS: BP 124/66
[2017-05-18] MEDS: HydrALAZINE 10mg Tab ORAL SCH ×3 (06:05→17:31)
[2017-05-18] MEDS: SulfASALAZine 500MG tab ORAL SCH ×3 (06:22→16:02)
[2017-05-18 08:00] VITALS: BP 156/94
[2017-05-18] MEDS: Metoprolol Tartrate 50mg tab ORAL SCH ×2 (08:17→21:07)
[2017-05-18] MEDS: PARoxetine 20mg tab ORAL SCH (08:17)
[2017-05-18] MEDS: Meropenem 1gm in NS 55ml IVPB SCH ×2 (08:17→21:06)
[2017-05-18] MEDS: Eliquis 2.5mg tablet ORAL SCH ×2 (08:17→17:33)
[2017-05-18 09:09] LABS: BASOPHILS % (AUTO) 0.7 % (0.0-2.0); EOSINOPHILS % (AUTO) 0.1 % (0.0-3.0); LYMPHOCYTES % (AUTO) 44.4 % (20.0-45.0); MEAN CORPUSCULAR HEMOGLOBIN 27.9 PG (27.0-31.0); MEAN CORPUSCULAR HGB CONC 32.2 G/DL (32.0-36.0); MEAN CORPUSCULAR VOLUME 87 FL (80-99); MEAN PLATELET VOLUME 8.1 FL (6.5-10.1); MONOCYTES % (AUTO) 8.5 % (1.0-10.0); NEUTROPHILS % (AUTO) 46.2 % (45.0-75.0); PLATELET COUNT 174 K/UL (150-450); RED BLOOD COUNT 4.79 M/UL (4.20-5.40); RED CELL DISTRIBUTION WIDTH 14.8 % (11.6-14.8)
[2017-05-18 09:25] LABS: ANION GAP 9 mmol/L (5-15); CALCIUM 8.1 MG/DL (8.5-10.1); CARBON DIOXIDE 25 MMOL/L (21-32); CHLORIDE 106 MMOL/L (98-107); CREATININE 0.9 MG/DL (0.55-1.30); POTASSIUM 3.2 MMOL/L (3.5-5.1); SODIUM 140 MMOL/L (136-145)
[2017-05-18 12:00] VITALS: BP 137/90
--- NOTE | 2017-05-18 12:26 | General Progress Note ---
Assessment/Plan Status: stable Assessment/Plan (1) Bacteremia Assessment & Plan: Gram positive cocci in clusters in blood cultures noted in outside facility ICD Codes: R78.81 - Bacteremia SNOMED: 5271723 (2) Acute kidney injury ICD Codes: N17.9 - Acute kidney failure, unspecified SNOMED: 95561727 (3) Elevated troponin ICD Codes: R74.8 - Abnormal levels of other serum enzymes SNOMED: 985558698, 508952409 (4) CHF (congestive heart failure) ICD Codes: I50.9 - Heart failure, unspecified SNOMED: 93935679 (5) UTI (urinary tract infection) ICD Codes: N39.0 - Urinary tract infection, site not specified SNOMED: 46343348 (6) Sepsis ICD Codes: A41.9 - Sepsis, unspecified organism SNOMED: 62529011 (7) Depression ICD Codes: F32.9 - Major depressive disorder, single episode, unspecified SNOMED: 17008578 (8) HTN (hypertension) ICD Codes: I10 - Essential (primary) hypertension SNOMED: 80992111 (9) Dementia ICD Codes: F03.90 - Unspecified dementia without behavioral disturbance SNOMED: 87076129 (10) Atrial fibrillation ICD Codes: I48.91 - Unspecified atrial fibrillation SNOMED: 74290931 Status: not improved Assessment/Plan #bacteremia/sepsis due to UTI - urine culture with ESBL E. Coli and ESBL Klebsiella - blood culture NGTD - blood cx previously w/ coag neg staph likely contaminant as repeat blood cx ngtd - continue pruitt and irrigate with normal saline prn - IV vmeropenem (05/16 - ) per ID, d/c'd vanco per ID - ID consulted. appreciate recs #elevated trops/NSTEMI - Continue tele monitoring - BNP 13,000s - trop peak at 0.12 - EKG with p. A. fibb - ECHO with 55% EF, moderate to severe pulmonary hypertension, and elevated RA pressure - s/p heparin gtt - cardiology consulted #Chronic Afib - cont MTP, eliquis per cardiology #SUNNY - continue IVF - trend Cr - hold ACEi/ARB - RESOLVED # Hypokalemia - Replete lytes #HTN - continue home BP meds #Depression - continue home psych meds D/w RN, patient, ID, and cards regarding plan of care. Total patient care time spent 38 minutes w/ >50% on care/coordination and counseling. Dispo planning: back to SNF once medically stable, possibly tomorrow Subjective Date patient seen: May 18, 2017 Time patient seen: 12:26 ROS Limited/Unobtainable: Yes Allergies: Coded Allergies: No Known Allergies (Unverified , 04/30/16) Subjective No acute o/n events Pt asleep but arousable to voice. Confused at baseline, A&Ox1-2 Poor PO intake. D/w son re tube feeding and he would like to defer at this time given it would cause pt discomfort Objective Last 24 Hour Vital Signs Date Time Temp Pulse Resp B/P (MAP) Pulse Ox O2 Delivery O2 Flow Rate FiO2 05/18/17 12:15 137/90 05/18/17 08:17 83 124/66 05/18/17 08:16 83 124/66 05/18/17 06:05 124/66 05/18/17 04:00 83 05/18/17 04:00 97.4 68 20 124/66 98 Nasal Cannula 05/18/17 00:00 92 05/18/17 00:00 97.0 80 20 158/110 98 05/17/17 23:44 102 145/100 05/17/17 23:43 145/100 05/17/17 23:42 102 145/100 05/17/17 20:00 82 05/17/17 20:00 97.0 102 20 145/100 98 05/17/17 18:06 151/96 05/17/17 16:00 97.2 58 20 151/96 96 Nasal Cannula 05/17/17 16:00 78 Laboratory Tests 05/17/17 18:00: Activated Partial Thromboplast Time 73H 05/18/17 08:35: White Blood Count 5.0, Red Blood Count 4.79, Hemoglobin 13.4, Hematocrit 41.5, Mean Corpuscular Volume 87, Mean Corpuscular Hemoglobin 27.9, Mean Corpuscular Hemoglobin Concent 32.2, Red Cell Distribution Width 14.8, Platelet Count 174, Mean Platelet Volume 8.1, Neutrophils (%) (Auto) 46.2, Lymphocytes (%) (Auto) 44.4, Monocytes (%) (Auto) 8.5, Eosinophils (%) (Auto) 0.1, Basophils (%) (Auto ) 0.7, Sodium Level 140, Potassium Level 3.2L, Chloride Level 106, Carbon Dioxide Level 25, Anion Gap 9, Blood Urea Nitrogen 14, Creatinine 0.9, Estimat Glomerular Filtration Rate , Glucose Level 80, Calcium Level 8.1L Height (Feet): 5 Height (Inches): 4.00 Weight (Pounds): 150 Objective General: alert, cooperative, no distress, appears stated age Head: normocephalic, without obvious abnormality, atraumatic Eyes: conjunctivae/corneas clear. PERRL, EOM's intact Throat: lips, mucosa, and tongue normal. MMM Neck: supple, symmetrical, trachea midline, and no JVD Lungs: clear to auscultation bilaterally Heart: regular rate and rhythm, S1, S2 normal, no murmur, click, rub or gallop Abdomen: soft, non-tender, non-distended, bowel sounds normal; no masses or organomegaly Extremities: extremities normal, atraumatic, no cyanosis or edema Pulses: 2+ and symmetric Skin: skin color, texture, turgor normal; no rashes or lesions Neurologic: grossly normal, no focal deficits Agapito Butler M.D. May 18, 2017 12:26
[2017-05-18] MEDS ORDERED: Potassium Chloride 40 MEQ in Sodium Chloride 500ML 550 ML IVPB ONE (15:00)
[2017-05-18 16:00] VITALS: BP 143/110
--- NOTE | 2017-05-18 16:12 | Infectious Diseases Prog Note ---
Assessment/Plan Assessment/Plan ASSESSMENT AND PLAN: 1. 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 Altman about abx 2. The patient has a history of hyperlipidemia. 3. Elevated creatinine. 4. Possible chronic renal failure. 5. Cerebrovascular accident. 6. Likely hypertension based on medications. 7. The patient is on Azulfidine, unclear why. 8. Anxiety. 9. Depression. 10. Dementia. 11. Dysphagia. 12. Gastroesophageal reflux disease. 13. Decrease in walking. 14. Weakness. 15. Cerebral infarction. 16. History of urinary tract infection. 17. Dementia per the records. 18. Past medical history noted. 19. No known allergies. 20. Social history negative. 21. Family history is noncontributory. 22. MAR was noted. 23. Case discussed with RN. 24. Case discussed with Dr. Altman 25. Continue treatment per primary consultants. Subjective Constitutional: Reports: fatigue, other - + generalized weakness but responsive , Denies: fever, chills HEENT: Denies: congestion Respiratory: Denies: shortness of breath Cardiovascular: Denies: chest pain Gastrointestinal/Abdominal: Denies: nausea, vomiting, diarrhea Genitourinary: Reports: other - + pruitt Neurologic: Denies: headache Psychiatric: Denies: depression Skin: Denies: rash Hematologic: Denies: bleeding Musculoskeletal: Denies: pain Allergies: Coded Allergies: No Known Allergies (Unverified , 04/30/16) Objective Vital Signs Last 24 Hour Vital Signs Date Time Temp Pulse Resp B/P (MAP) Pulse Ox O2 Delivery O2 Flow Rate FiO2 05/18/17 12:15 137/90 05/18/17 12:00 97.0 78 20 137/90 100 Room Air 05/18/17 12:00 64 05/18/17 08:17 83 /05/18/17 08:16 83 124/05/18/17 08:00 69 05/18/17 08:00 97.8 82 20 156/94 98 Nasal Cannula 05/18/17 06:05 /05/18/17 04:00 83 05/18/17 04:00 97.4 68 20 124/66 98 Nasal Cannula 05/18/17 00:00 92 05/18/17 00:00 97.0 80 20 158/110 98 05/17/17 23:44 102 145/100 05/17/17 23:43 145/100 05/17/17 23:42 102 145/100 05/17/17 20:00 82 05/17/17 20:00 97.0 102 20 145/100 98 05/17/17 18:06 151/96 05/17/17 16:00 97.2 58 20 151/96 96 Nasal Cannula 05/17/17 16:00 78 Height (Feet): 5 Height (Inches): 4.00 Weight (Pounds): 150 General Appearance: no acute distress HEENT: normocephalic, atraumatic, anicteric, mucous membranes moist Respiratory/Chest: lungs clear, normal breath sounds, no respiratory distress, no accessory muscle use Cardiovascular: normal rate, regular rhythm, no gallop/murmur, no JVD Abdomen: normal bowel sounds, soft, non tender, no organomegaly, non distended Genitourinary: other - + pruitt - urine clear Extremities: no cyanosis Skin: no rash 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, alert, responsive Lymphatic: no neck adenopathy Musculoskeletal: no effusion Objective Labs Test 05/15/17 21:00 05/15/17 22:15 05/15/17 23:05 05/16/17 07:51 White Blood Count 9.8 K/UL (4.8-10.8) Red Blood Count 4.69 M/UL (4.20-5.40) Hemoglobin 12.2 G/DL (12.0-16.0) Hematocrit 40.5 % (37.0-47.0) Mean Corpuscular Volume 86 FL (80-99) Mean Corpuscular Hemoglobin 26.1 PG (27.0-31.0) Mean Corpuscular Hemoglobin Concent 30.2 G/DL (32.0-36.0) Red Cell Distribution Width 14.7 % (11.6-14.8) Platelet Count 192 K/UL (150-450) Mean Platelet Volume 7.8 FL (6.5-10.1) Neutrophils (%) (Auto) 84.2 % (45.0-75.0) Lymphocytes (%) (Auto) 9.9 % (20.0-45.0) Monocytes (%) (Auto) 5.3 % (1.0-10.0) Eosinophils (%) (Auto) 0.1 % (0.0-3.0) Basophils (%) (Auto) 0.5 % (0.0-2.0) Sodium Level 142 MMOL/L (136-145) Potassium Level 3.6 MMOL/L (3.5-5.1) Chloride Level 108 MMOL/L (98-107) Carbon Dioxide Level 25 MMOL/L (21-32) Anion Gap 9 mmol/L (5-15) Blood Urea Nitrogen 28 mg/dL (7-18) Creatinine 1.6 MG/DL (0.55-1.30) Estimat Glomerular Filtration Rate mL/min (>60) Glucose Level 173 MG/DL (74-106) Lactic Acid Level 2.00 mmol/L (0.66-2.22) 1.90 mmol/L (0.66-2.22) Calcium Level 8.6 MG/DL (8.5-10.1) Total Bilirubin 0.7 MG/DL (0.2-1.0) Aspartate Amino Transf (AST/SGOT) 43 U/L (15-37) Alanine Aminotransferase (ALT/SGPT) 24 U/L (12-78) Alkaline Phosphatase 127 U/L (46-116) Total Creatine Kinase 188 U/L (26-308) Creatine Kinase MB 1.6 NG/ML (0.0-3.6) Creatine Kinase MB Relative Index 0.8 Troponin I 0.099 ng/mL (0.000-0.056) Total Protein 8.8 G/DL (6.4-8.2) Albumin 2.6 G/DL (3.4-5.0) Globulin 6.2 g/dL Albumin/Globulin Ratio 0.4 (1.0-2.7) Urine Color Brown Red Urine Appearance Very cloudy Turbid Urine pH 5 (4.5-8.0) 5 (4.5-8.0) Urine Specific [place] 1.015 (1.005-1.035) 1.020 (1.005-1.035) Urine Protein 4+ (NEGATIVE) 4+ (NEGATIVE) Urine Glucose (UA) Negative (NEGATIVE) Negative (NEGATIVE) Urine Ketones 1+ (NEGATIVE) 2+ (NEGATIVE) Urine Occult Blood 5+ (NEGATIVE) 5+ (NEGATIVE) Urine Nitrite Positive (NEGATIVE) Positive (NEGATIVE) Urine Bilirubin 1+ (NEGATIVE) 1+ (NEGATIVE) Urine Ictotest Negative Negative Urine Urobilinogen 1 MG/DL (0.0-1.0) 1 MG/DL (0.0-1.0) Urine Leukocyte Esterase 3+ (NEGATIVE) 2+ (NEGATIVE) Urine RBC Tntc /HPF (0 - 2) 60-80 /HPF (0 - 2) Urine WBC Tntc /HPF (0 - 2) 10-15 /HPF (0 - 2) Urine Squamous Epithelial Cells Few /LPF (NONE/OCC) Few /LPF (NONE/OCC) Urine Bacteria Moderate /HPF (NONE) Moderate /HPF (NONE) Test 05/16/17 18:11 05/16/17 18:39 05/16/17 20:54 05/17/17 00:30 Lactate Dehydrogenase 354 U/L (81-234) Troponin I 0.123 ng/mL (0.000-0.056) 0.091 ng/mL (0.000-0.056) Pro-B-Type Natriuretic Peptide 38035 pg/mL (0-125) White Blood Count 5.3 K/UL (4.8-10.8) Red Blood Count 4.18 M/UL (4.20-5.40) Hemoglobin 11.5 G/DL (12.0-16.0) Hematocrit 37.2 % (37.0-47.0) Mean Corpuscular Volume 89 FL (80-99) Mean Corpuscular Hemoglobin 27.4 PG (27.0-31.0) Mean Corpuscular Hemoglobin Concent 30.9 G/DL (32.0-36.0) Red Cell Distribution Width 14.9 % (11.6-14.8) Platelet Count 179 K/UL (150-450) Mean Platelet Volume 7.2 FL (6.5-10.1) Neutrophils (%) (Auto) 75.0 % (45.0-75.0) Lymphocytes (%) (Auto) 19.1 % (20.0-45.0) Monocytes (%) (Auto) 4.9 % (1.0-10.0) Eosinophils (%) (Auto) 0.0 % (0.0-3.0) Basophils (%) (Auto) 1.0 % (0.0-2.0) Prothrombin Time 12.0 SEC (9.30-11.50) Prothromb Time International Ratio 1.1 (0.9-1.1) Activated Partial Thromboplast Time 35 SEC (23-33) Test 05/17/17 06:10 05/17/17 11:45 05/17/17 18:00 05/18/17 08:35 White Blood Count 5.3 K/UL (4.8-10.8) 5.0 K/UL (4.8-10.8) Red Blood Count 4.13 M/UL (4.20-5.40) 4.79 M/UL (4.20-5.40) Hemoglobin 11.8 G/DL (12.0-16.0) 13.4 G/DL (12.0-16.0) Hematocrit 35.8 % (37.0-47.0) 41.5 % (37.0-47.0) Mean Corpuscular Volume 87 FL (80-99) 87 FL (80-99) Mean Corpuscular Hemoglobin 28.5 PG (27.0-31.0) 27.9 PG (27.0-31.0) Mean Corpuscular Hemoglobin Concent 32.9 G/DL (32.0-36.0) 32.2 G/DL (32.0-36.0) Red Cell Distribution Width 14.9 % (11.6-14.8) 14.8 % (11.6-14.8) Platelet Count 170 K/UL (150-450) 174 K/UL (150-450) Mean Platelet Volume 7.5 FL (6.5-10.1) 8.1 FL (6.5-10.1) Neutrophils (%) (Auto) 53.9 % (45.0-75.0) 46.2 % (45.0-75.0) Lymphocytes (%) (Auto) 34.2 % (20.0-45.0) 44.4 % (20.0-45.0) Monocytes (%) (Auto) 10.4 % (1.0-10.0) 8.5 % (1.0-10.0) Eosinophils (%) (Auto) 0.2 % (0.0-3.0) 0.1 % (0.0-3.0) Basophils (%) (Auto) 1.4 % (0.0-2.0) 0.7 % (0.0-2.0) Activated Partial Thromboplast Time 88 SEC (23-33) 81 SEC (23-33) 73 SEC (23-33) Sodium Level 143 MMOL/L (136-145) 140 MMOL/L (136-145) Potassium Level 3.8 MMOL/L (3.5-5.1) 3.2 MMOL/L (3.5-5.1) Chloride Level 109 MMOL/L (98-107) 106 MMOL/L (98-107) Carbon Dioxide Level 25 MMOL/L (21-32) 25 MMOL/L (21-32) Anion Gap 9 mmol/L (5-15) 9 mmol/L (5-15) Blood Urea Nitrogen 21 mg/dL (7-18) 14 mg/dL (7-18) Creatinine 1.1 MG/DL (0.55-1.30) 0.9 MG/DL (0.55-1.30) Estimat Glomerular Filtration Rate mL/min (>60) mL/min (>60) Glucose Level 72 MG/DL (74-106) 80 MG/DL (74-106) Calcium Level 7.9 MG/DL (8.5-10.1) 8.1 MG/DL (8.5-10.1) Troponin I 0.076 ng/mL (0.000-0.056) Microbiology Date/Time Source Procedure Growth Status 05/16/17 11:35 Blood Blood Culture - Preliminary NO GROWTH AFTER 24 HOURS Resulted 05/15/17 21:05 Blood Blood Culture - Preliminary NO GROWTH AFTER 48 HOURS Resulted 05/15/17 21:00 Blood Blood Culture - Preliminary NO GROWTH AFTER 48 HOURS Resulted 05/15/17 22:30 Nasal Nares MRSA Culture - Final NO METHICILLIN RESISTANT STAPH AUREUS... Complete 05/16/17 07:51 Urine,Clean Catch Urine Culture - Preliminary NO GROWTH AFTER 24 HOURS Resulted 05/15/17 22:15 Urine,Clean Catch Urine Culture - Final Escherichia Coli - Esbl Klebsiella Pneumoniae Esbl Complete 05/15/17 22:30 Rectum VRE Culture - Final Enterococcus Faecium - Vre Complete Laboratory Tests Test 05/17/17 18:00 05/18/17 08:35 Activated Partial Thromboplast Time 73 SEC (23-33) H White Blood Count 5.0 K/UL (4.8-10.8) Red Blood Count 4.79 M/UL (4.20-5.40) Hemoglobin 13.4 G/DL (12.0-16.0) Hematocrit 41.5 % (37.0-47.0) Mean Corpuscular Volume 87 FL (80-99) Mean Corpuscular Hemoglobin 27.9 PG (27.0-31.0) Mean Corpuscular Hemoglobin Concent 32.2 G/DL (32.0-36.0) Red Cell Distribution Width 14.8 % (11.6-14.8) Platelet Count 174 K/UL (150-450) Mean Platelet Volume 8.1 FL (6.5-10.1) Neutrophils (%) (Auto) 46.2 % (45.0-75.0) Lymphocytes (%) (Auto) 44.4 % (20.0-45.0) Monocytes (%) (Auto) 8.5 % (1.0-10.0) Eosinophils (%) (Auto) 0.1 % (0.0-3.0) Basophils (%) (Auto) 0.7 % (0.0-2.0) Sodium Level 140 MMOL/L (136-145) Potassium Level 3.2 MMOL/L (3.5-5.1) L Chloride Level 106 MMOL/L (98-107) Carbon Dioxide Level 25 MMOL/L (21-32) Anion Gap 9 mmol/L (5-15) Blood Urea Nitrogen 14 mg/dL (7-18) Creatinine 0.9 MG/DL (0.55-1.30) Estimat Glomerular Filtration Rate mL/min (>60) Glucose Level 80 MG/DL (74-106) Calcium Level 8.1 MG/DL (8.5-10.1) L Current Medications Medications (Trade) Dose Ordered Sig/Renea Route PRN Reason Start Time Stop Time Status Last Admin Dose Admin Acetaminophen (Tylenol) 650 mg Q6H PRN ORAL Mild Pain/Temp > 100.5 05/16/17 03:15 06/15/17 03:14 Apixaban (Eliquis) 5 mg BID ORAL 05/17/17 21:00 06/16/17 20:59 05/18/17 08:17 Atorvastatin Calcium (Lipitor) 80 mg BEDTIME ORAL 05/16/17 21:00 06/15/17 20:59 05/17/17 23:43 Folic Acid (Folate) 1 mg DAILY ORAL 05/16/17 09:00 06/15/17 08:59 05/18/17 08:16 Gabapentin (Neurontin) 300 mg DAILY ORAL 05/16/17 09:00 06/15/17 08:59 05/18/17 08:16 Hydralazine HCl (Apresoline) 10 mg Q6HR ORAL 05/16/17 06:00 06/15/17 05:59 05/18/17 12:15 Lorazepam (Ativan 2mg/ml 1ml) 1 mg Q6H PRN IV Agitation 05/17/17 16:00 05/24/17 15:59 05/18/17 03:50 Meropenem 1 gm/ Sodium Chloride 55 ml @ 110 mls/hr Q12HR IVPB 05/17/17 21:00 05/22/17 20:59 05/18/17 08:17 Methotrexate (metHOTREXate) 2.5 mg Th@0900 ORAL 05/21/17 09:00 05/26/17 08:59 Metoprolol Tartrate (Lopressor) 50 mg Q12HR ORAL 05/16/17 09:00 06/15/17 08:59 05/18/17 08:17 Mirtazapine (Remeron) 15 mg BEDTIME ORAL 05/16/17 21:00 06/15/17 20:59 05/17/17 23:43 Nifedipine (Procardia XL) 30 mg Q12HR ORAL 05/16/17 09:00 06/15/17 08:59 05/18/17 08:16 Pantoprazole (Protonix) 40 mg ACBREAKFAST ORAL 05/16/17 06:30 06/15/17 06:29 05/18/17 06:22 Paroxetine HCl (Paxil) 20 mg DAILY ORAL 05/16/17 09:00 06/15/17 08:59 05/18/17 08:17 Potassium Chloride 40 meq/ Sodium Chloride 570 ml @ 142.5 mls/ hr ONCE ONCE IVPB 05/18/17 15:00 05/18/17 18:59 Sodium Chloride 1,000 ml @ 50 mls/hr Q20H IV 05/16/17 18:00 06/15/17 17:59 05/18/17 11:07 Sulfasalazine (Azulfidine) 500 mg BEFORE MEALS ORAL 05/16/17 06:30 06/15/17 06:29 05/18/17 12:14 Vancomycin HCl (Vanco rx to dose) 1 ea DAILY PRN MISC Per rx protocol 05/16/17 02:45 06/15/17 02:44 Vancomycin/Sodium Chloride 250 ml @ 166.667 mls/hr Q24H IVPB 05/16/17 21:00 05/21/17 20:59 05/17/17 23:42 AMPARO HARRISON May 18, 2017 16:12
--- NOTE | 2017-05-18 16:41 | Physician Query ---
PLEASE COMPLETE DOCUMENT BEFORE SIGNING Dear JOSELIN Kuhn Date: _ Client Service Supervisor/CDS Name: LINNETTE Peace Client Service Supervisor / CDS Phone #_[phone] Exercise your independent professional judgment when responding to query. Question asked do not imply a particular answer is desired/expected. Clinical Documentation States: "Altered Mental Status " documented in the H/P of JOSELIN Sow. Clinical Findings Show: Urinalysis: WBC=Too numerous to count CBC=Too numerous to count Urine Culture= ESBL in urine and blood cultures with gram positive cocci in clusters/klebsiella Please indicate the nature and chronicity of the condition below: [] Metabolic Encephalopathy [] Toxic Encephalopathy [] Toxic - Metabolic Encephalopathy [] Progressive Encephalopthy [] Encephalopathy, Other [] Other: [] Not Applicable Severity [] Acute [] Chronic [] Acute on Chronic [] Unable to determine Condition Present on Admission: [] Yes [] No []Clinically Undeterminable Please also document in your Progress Notes and/or Discharge Summary and indicate if the condition was present on admission. Magi Kuhn NP Date/Time [facility]
--- NOTE | 2017-05-18 18:55 | Cardiology Progress Note ---
Assessment/Plan Assessment/Plan 1. Chronic atrial fibrillation, continue metoprolol and Eliquis. 2. Slight elevation of troponin I level, could be secondary to non-ST elevation myocardial infarction or demand ischemia, conservative management with atorvastatin, metoprolol and aspirin. 3. Sepsis with urinary tract infection. Subjective Cardiovascular: Reports: no symptoms Respiratory: Reports: no symptoms Gastrointestinal/Abdominal: Reports: no symptoms Genitourinary: Reports: no symptoms Subjective Sinus rhythm at 87. Objective Last 24 Hour Vital Signs Date Time Temp Pulse Resp B/P (MAP) Pulse Ox O2 Delivery O2 Flow Rate FiO2 05/18/17 17:31 143/110 05/18/17 16:00 87 05/18/17 16:00 97.0 79 19 143/110 100 Room Air 05/18/17 12:15 137/90 05/18/17 12:00 97.0 78 20 137/90 100 Room Air 05/18/17 12:00 64 05/18/17 08:17 83 124/66 05/18/17 08:16 83 124/66 05/18/17 08:00 69 05/18/17 08:00 97.8 82 20 156/94 98 Nasal Cannula 05/18/17 06:05 124/66 05/18/17 04:00 83 05/18/17 04:00 97.4 68 20 124/66 98 Nasal Cannula 05/18/17 00:00 92 05/18/17 00:00 97.0 80 20 158/110 98 05/17/17 23:44 102 145/100 05/17/17 23:43 145/100 05/17/17 23:42 102 145/100 05/17/17 20:00 82 05/17/17 20:00 97.0 102 20 145/100 98 Intake and Output 05/18/17 05/19/17 19:00 07:00 Intake Total 310 ml Balance 310 ml IV Total 310 ml # Bowel Movements 2 2D Echo: LVEF 55%, Sev LAE, Mod [place], RVSP 59 mmHg, Mild AR/MR, Grade III LVDD Laboratory Tests Test 05/18/17 08:35 White Blood Count 5.0 K/UL (4.8-10.8) Red Blood Count 4.79 M/UL (4.20-5.40) Hemoglobin 13.4 G/DL (12.0-16.0) Hematocrit 41.5 % (37.0-47.0) Mean Corpuscular Volume 87 FL (80-99) Mean Corpuscular Hemoglobin 27.9 PG (27.0-31.0) Mean Corpuscular Hemoglobin Concent 32.2 G/DL (32.0-36.0) Red Cell Distribution Width 14.8 % (11.6-14.8) Platelet Count 174 K/UL (150-450) Mean Platelet Volume 8.1 FL (6.5-10.1) Neutrophils (%) (Auto) 46.2 % (45.0-75.0) Lymphocytes (%) (Auto) 44.4 % (20.0-45.0) Monocytes (%) (Auto) 8.5 % (1.0-10.0) Eosinophils (%) (Auto) 0.1 % (0.0-3.0) Basophils (%) (Auto) 0.7 % (0.0-2.0) Sodium Level 140 MMOL/L (136-145) Potassium Level 3.2 MMOL/L (3.5-5.1) L Chloride Level 106 MMOL/L (98-107) Carbon Dioxide Level 25 MMOL/L (21-32) Anion Gap 9 mmol/L (5-15) Blood Urea Nitrogen 14 mg/dL (7-18) Creatinine 0.9 MG/DL (0.55-1.30) Estimat Glomerular Filtration Rate mL/min (>60) Glucose Level 80 MG/DL (74-106) Calcium Level 8.1 MG/DL (8.5-10.1) L Microbiology Date/Time Source Procedure Growth Status 05/16/17 11:35 Blood Blood Culture - Preliminary NO GROWTH AFTER 24 HOURS Resulted 05/15/17 21:05 Blood Blood Culture - Preliminary NO GROWTH AFTER 48 HOURS Resulted 05/15/17 21:00 Blood Blood Culture - Preliminary NO GROWTH AFTER 48 HOURS Resulted 05/15/17 22:30 Nasal Nares MRSA Culture - Final NO METHICILLIN RESISTANT STAPH AUREUS... Complete 05/16/17 07:51 Urine,Clean Catch Urine Culture - Preliminary NO GROWTH AFTER 24 HOURS Resulted 05/15/17 22:15 Urine,Clean Catch Urine Culture - Final Escherichia Coli - Esbl Klebsiella Pneumoniae Esbl Complete 05/15/17 22:30 Rectum VRE Culture - Final Enterococcus Faecium - Vre Complete Objective GENERAL: The patient is a very unfortunate 71-year-old female, in no apparent respiratory distress. Appears to be demented, confused, and not coherent. HEENT: Atraumatic and normocephalic. Anicteric. Pupils are equal, round, and reactive to light and accommodation. Conjunctival pallor is present. NECK: JVP is less than 5 cm. No carotid bruit. Carotid upstrokes 2+ bilaterally. CARDIOVASCULAR: Normal S1 and S2. Irregularly irregular rhythm. A 2/6 mid systolic murmur at the left sternal border. PMI is at fourth intercostal space in the midclavicular line. LUNGS: Clear to auscultation bilaterally. ABDOMEN: Soft, nontender, and nondistended. No hepatosplenomegaly. Positive bowel sounds. EXTREMITIES: No evidence of edema, clubbing, or cyanosis. BRODY MORAN May 18, 2017 18:55
[2017-05-18 20:13] VITALS: BP 151/93
[2017-05-18] MEDS: Atorvastatin 80mg tab ORAL SCH (21:06)
[2017-05-19 00:20] VITALS: BP 127/79
[2017-05-19] MEDS: HydrALAZINE 10mg Tab ORAL SCH ×3 (00:23→12:03)
[2017-05-19] MEDS ORDERED: PROCARDIA XL30 MG ORAL (01:01)
[2017-05-19] MEDS ORDERED: METOPROLOL TART50 MG ORAL (01:01)
[2017-05-19] MEDS ORDERED: ELIQUIS2.5 MG ORAL (01:01)
[2017-05-19] MEDS ORDERED: INVANZ1 G1 IM (01:04)
[2017-05-19] MEDS: LORazepam Inj 2mg/ml 1ml IV PRN (02:38)
[2017-05-19 04:08] VITALS: BP 161/90
[2017-05-19] MEDS: SulfASALAZine 500MG tab ORAL SCH ×2 (06:10→12:03)
[2017-05-19 08:44] LABS: ANION GAP 8 mmol/L (5-15); CALCIUM 8.2 MG/DL (8.5-10.1); CARBON DIOXIDE 25 MMOL/L (21-32); CHLORIDE 109 MMOL/L (98-107); POTASSIUM 3.7 MMOL/L (3.5-5.1); SODIUM 142 MMOL/L (136-145)
[2017-05-19 08:49] LABS: BASOPHILS % (AUTO) 0.6 % (0.0-2.0); LYMPHOCYTES % (AUTO) 38.3 % (20.0-45.0); MEAN CORPUSCULAR HEMOGLOBIN 28.3 PG (27.0-31.0); MEAN CORPUSCULAR HGB CONC 32.5 G/DL (32.0-36.0); MEAN CORPUSCULAR VOLUME 87 FL (80-99); MEAN PLATELET VOLUME 8.1 FL (6.5-10.1); MONOCYTES % (AUTO) 7.7 % (1.0-10.0); NEUTROPHILS % (AUTO) 53.4 % (45.0-75.0); PLATELET COUNT 145 K/UL (150-450); RED BLOOD COUNT 4.45 M/UL (4.20-5.40); RED CELL DISTRIBUTION WIDTH 14.9 % (11.6-14.8); WHITE BLOOD COUNT 4.5 K/UL (4.8-10.8)
[2017-05-19] MEDS: Meropenem 1gm in NS 55ml IVPB SCH (10:23)
[2017-05-19] MEDS: PARoxetine 20mg tab ORAL SCH (10:23)
[2017-05-19] MEDS: Metoprolol Tartrate 50mg tab ORAL SCH (10:24)
[2017-05-19] MEDS: Eliquis 2.5mg tablet ORAL SCH (10:30)
[2017-05-19 12:03] VITALS: BP 130/90
--- NOTE | 2017-05-19 12:07 | Discharge Summary ---
Discharge Summary Hospital Course Date of Admission May 15, 2017 at 21:13 Date of Discharge Admitting Diagnosis SEPSIS HPI Marcelle Marquez is a 71 year old female who was admitted on May 15, 2017 at 21:13 for Sepsis Discharge Discharge Disposition Patient was discharged to Discharge Diagnoses: Agapito Butler M.D. May 19, 2017 12:07
[2017-05-19] MEDS ORDERED: Tubing IV Secondary IV ONE (15:59)
[2017-05-19] MEDS ORDERED: NS 500ML ONE (15:59)
--- NOTE | 2017-05-19 17:54 | Discharge Summary ---
Discharge Summary Hospital Course Date of Admission May 15, 2017 at 21:13 Date of Discharge May 19, 2017 at 16:00 Admitting Diagnosis SEPSIS Reason for Hospitalization: sepsis, UTI HPI 71 y/o female with a PMH of Afib, HTN, HLD, depression, GERD, and ulcerative colitis presents from SNF for positive blood cultures with gram positive cocci in clusters, UTI with ESBL, persistent fevers, and altered mental status. Patient is a poor historian due to altered mental status and further history was obtained from the chart. Patient was given oral keflex for UTI at facility but mentation worsened and was therefore brought to the ED. Patient was started on IV vancomycin and zosyn and a pruitt catheter was placed in ED. Trop was noted to be 0.09 and EKG showed atrial fibrillation with RVR. Patient's CXR was also noted to be fluid overloaded/CHF. Patient denies sob, chest pain, headaches , fevers/chills, n/v, abdominal pain, dysuria. Consultations Infectious disease, cardiology Hospital Course Pt was admitted and found to have ESBL E. Coli and Klebsiella UTI. Repeat blood cultures were negative and thus the previous coag neph staph in blood cultures likely represents a contaminant. Pt was transitioned to meropenem per ID. Pt's SCr improved w/ IVFs. Her mental status improved. Pt w/ poor PO intake but son refused feeding tube at this time. Pt was also seen by cardiology for NSTEMI which was treated w/ heparin gtt. ECHO showed EF 55%, moderate to severe pulm HTN. Trop peaked at 0.12. Once medically stable, pt was discharged back to SNF. Discharge physical exam: General: alert, cooperative, no distress, appears stated age Head: normocephalic, without obvious abnormality, atraumatic Eyes: conjunctivae/corneas clear. PERRL, EOM's intact Throat: lips, mucosa, and tongue normal. MMM Neck: supple, symmetrical, trachea midline, and no JVD Lungs: clear to auscultation bilaterally Heart: regular rate and rhythm, S1, S2 normal, no murmur, click, rub or gallop Abdomen: soft, non-tender, non-distended, bowel sounds normal Extremities: extremities normal, atraumatic, no cyanosis or edema Pulses: 2+ and symmetric Skin: skin color, texture, turgor normal; no rashes or lesions Neurologic: grossly normal, no focal deficits Discharge diagnoses: (1) Bacteremia Assessment & Plan: Gram positive cocci in clusters in blood cultures noted in outside facility ICD Codes: R78.81 - Bacteremia SNOMED: 4889332 (2) Acute kidney injury ICD Codes: N17.9 - Acute kidney failure, unspecified SNOMED: 93260348 (3) Elevated troponin ICD Codes: R74.8 - Abnormal levels of other serum enzymes SNOMED: 442089723, 907631162 (4) CHF (congestive heart failure) ICD Codes: I50.9 - Heart failure, unspecified SNOMED: 98407375 (5) UTI (urinary tract infection) ICD Codes: N39.0 - Urinary tract infection, site not specified SNOMED: 30804762 (6) Sepsis ICD Codes: A41.9 - Sepsis, unspecified organism SNOMED: 96227474 (7) Depression ICD Codes: F32.9 - Major depressive disorder, single episode, unspecified SNOMED: 22481587 (8) HTN (hypertension) ICD Codes: I10 - Essential (primary) hypertension SNOMED: 66372647 (9) Dementia ICD Codes: F03.90 - Unspecified dementia without behavioral disturbance SNOMED: 43423216 (10) Atrial fibrillation, chronic ICD Codes: I48.91 - Unspecified atrial fibrillation SNOMED: 05058001 (11) NSTEMI (12) Acute toxic metabolic encephalopathy Discharge Medications New Medications: Metoprolol Tartrate* (Metoprolol Tartrate*) 50 Mg Tablet 50 MG ORAL Q12HR for 90 Days, TAB Nifedipine Xl* (Procardia Xl*) 30 Mg Tab.er.24 30 MG ORAL Q12HR for 90 Days, TAB Continued Medications: Acetaminophen* (Acetaminophen 325MG Tablet*) 325 Mg Tablet 650 MG ORAL Q4H PRN for For Pain, TAB Atorvastatin Calcium* (Lipitor*) 80 Mg Tablet 80 MG ORAL BEDTIME, TAB Folic Acid* (Folic Acid*) 1 Mg Tablet 1 MG ORAL DAILY, TAB Hydralazine Hcl* (Hydralazine Hcl*) 10 Mg Tablet 10 MG ORAL EVERY 6 HOURS, TAB Methotrexate Sodium* (Methotrexate*) 2.5 Mg Tablet 2.5 MG PO, TAB Metoprolol Tartrate* (Metoprolol Tartrate*) 50 Mg Tablet 50 MG ORAL EVERY 12 HOURS, TAB Mirtazapine* (Remeron*) 15 Mg Tablet 15 MG ORAL BEDTIME, TAB Nifedipine (Nifedipine*) 20 Mg Capsule 30 MG ORAL EVERY 12 HOURS, CAP Omeprazole (Omeprazole) 20 Mg Capsule.dr 20 MG ORAL DAILY, CAP Paroxetine Hcl* (Paxil*) 20 Mg Tablet 20 MG ORAL DAILY, TAB 0 Refills Sulfasalazine* (Azulfidine*) 500 Mg Tablet 500 MG ORAL BEFORE MEALS, TAB Tramadol Hcl* (Ultram*) 50 Mg Tablet 50 MG ORAL Q4HR PRN for For Pain, #30 TAB 0 Refills Trazodone* (Trazodone*) 150 Mg Tablet 12.5 MG ORAL BEDTIME, TAB Valsartan (Diovan) 80 Mg Tab 80 MG ORAL DAILY, TAB Discontinued Medications: Benazepril Hcl* (Benazepril Hcl*) 40 Mg Tablet 40 MG ORAL TWICE A DAY, TAB Cephalexin* (Keflex*) 500 Mg Capsule 500 MG ORAL Q6H, #28 CAP 0 Refills Labetalol HCl (Labetalol HCl) 200 Mg Tablet 200 MG ORAL Q6HR, TAB Lorazepam* (Ativan*) 0.5 Mg Tablet 0.5 MG ORAL THREE TIMES A DAY, TAB Discharge Condition Upon Discharge: stable Discharge Disposition Patient was discharged to SNF/Subacute Facility(03) Discharge Diagnoses: Agapito Butler M.D. May 19, 2017 17:54
--- NOTE | 2017-05-23 00:31 | Cardiology Report ---
APPROVED REPORT EKG Measurement Heart [id number] [id number] Atrial fibrillation Left axis deviation Nonspecific T wave abnormality Abnormal ECG
--- NOTE | 2017-05-29 04:44 | Discharge Summary ---
Discharge Summary Hospital Course Date of Admission May 15, 2017 at 21:13 Date of Discharge May 19, 2017 at 16:00 Admitting Diagnosis SEPSIS Reason for Hospitalization: 71 y/o female with a PMH of A. fibb, HTN, HLD, depression, GERD HPI Marcelle Marquez is a 71 year old female who was admitted on May 15, 2017 at 21:13 for Sepsis Hospital Course 71 y/o female with a PMH of A. fibb, HTN, HLD, depression, GERD, and ulcerative colitis presents from SNF for positive blood cultures with gram positive cocci in clusters, UTI with ESBL, persistent fevers, and altered mental status. Patient is a poor historian due to altered mental status and further history was obtained from the chart. Patient was given oral keflex for UTI at facility but mentation worsened and was therefore brought to the ED. Patient was started on IV vancomycin and zosyn and a pruitt catheter was placed in ED. Trop was noted to be 0.09 and EKG showed atrial fibrillation with RVR. Patient's CXR was also noted to be fluid overloaded/CHF. Patient denies sob, chest pain, headaches , fevers/chills, n/v, abdominal pain, dysuria. The patient has sepsis, fevers, systemic inflammatory response syndrome criteria. She likely has a urinary tract infection/pyelonephritis with history of E. coli urinary tract infection. She also has possible gram-positive bacteremia with gram-positive blood cultures. The patient was placed on meropenem and vancomycin to cover gram-positive bacteremia and also to cover ESBL E. coli was intermediate to Zosyn, but was sensitive to carbapenem. She has Chronic atrial fibrillation continued on metoprolol 50 mg twice daily. The question is whether the patient requires anticoagulation therapy, given the patient's risk factors for hypertension being female and age above 65. She is automatic qualified based on CHADS-VASC. She requires to be on Eliquis 5 mg twice daily. The slight elevation of troponin I level, could be secondary to non-ST elevation myocardial infarction or demand ischemia. Given the patient's dementia, pursue a conservative management with atorvastatin double product control with metoprolol and aspirin. Urine culture showed growth of ESBL. She was cleared for discharge to SNF to continue ertapenem for 7 more days and DC vancomycin per ID recommendation. Assessment/Plan Status: stable Assessment/Plan (1) Bacteremia Assessment & Plan: Gram positive cocci in clusters in blood cultures noted in outside facility ICD Codes: R78.81 - Bacteremia SNOMED: 5125457 (2) Acute kidney injury ICD Codes: N17.9 - Acute kidney failure, unspecified SNOMED: 96082044 (3) Elevated troponin ICD Codes: R74.8 - Abnormal levels of other serum enzymes SNOMED: 937741467, 617348279 (4) CHF (congestive heart failure) ICD Codes: I50.9 - Heart failure, unspecified SNOMED: 13083715 (5) UTI (urinary tract infection) ICD Codes: N39.0 - Urinary tract infection, site not specified SNOMED: 74514594 (6) Sepsis ICD Codes: A41.9 - Sepsis, unspecified organism SNOMED: 86318135 (7) Depression ICD Codes: F32.9 - Major depressive disorder, single episode, unspecified SNOMED: 76647156 (8) HTN (hypertension) ICD Codes: I10 - Essential (primary) hypertension SNOMED: 82421660 (9) Dementia ICD Codes: F03.90 - Unspecified dementia without behavioral disturbance SNOMED: 47087698 (10) Atrial fibrillation ICD Codes: I48.91 - Unspecified atrial fibrillation SNOMED: 06104188 Status: not improved (11) Acute encephalopathy --I have been assigned to complete a DC summary on this account, I was not involved with the patient management-Juan Grullon NP Discharge Discharge Disposition Patient was discharged to SNF/Subacute Facility(03) Discharge Diagnoses: Maxine Grullon NP May 29, 2017 04:44
== END 2017-05-19 16:00 | DRG 871 ==
LOC: EDBD 20:41 → EMR 21:12 → 2E 21:13 → EDBEDREQ 22:08 → 2E 22:34
DX: A41.9 Sepsis, unspecified organism (principal); I21.4 Non-ST elevation (NSTEMI) myocardial infarction; N17.9 Acute kidney failure, unspecified; N39.0 Urinary tract infection, site not specified; I50.9 Heart failure, unspecified; F03.90 Unspecified dementia, unspecified severity, without behavioral disturbance, psychotic disturbance, mood disturbance, and anxiety; B96.20 Unspecified Escherichia coli [E. coli] as the cause of diseases classified elsewhere; I10 Essential (primary) hypertension; K21.9 Gastro-esophageal reflux disease without esophagitis; E78.5 Hyperlipidemia, unspecified; Z86.73 Personal history of transient ischemic attack (TIA), and cerebral infarction without residual deficits; F41.8 Other specified anxiety disorders; F32.9 Major depressive disorder, single episode, unspecified; I48.2 Chronic atrial fibrillation; B96.1 Klebsiella pneumoniae [K. pneumoniae] as the cause of diseases classified elsewhere; Z16.12 Extended spectrum beta lactamase (ESBL) resistance
CPT/HCPCS: 36415; 71010; 80048; 80053; 81001; 81003; 82550; 82553; 83605; 83615; 83880; 84484; 85025; 85610; 85730; 87040; 87081; 87086; 87181; 93005; 93306; 96361; 96365; 99284; 99285

== ENCOUNTER 2017-05-26 10:26 | Inpatient (IN) | payer MEDICARE, OTHER ==
[~2017-05-26] VITALS: Ht 167.6 cm; Wt 59.0 kg
[~2017-05-26 10:26] MED LIST changes: +ELIQUIS2.5 MG ORAL; +INVANZ1 G1 IM; +METOPROLOL TART50 MG ORAL; +PROCARDIA XL30 MG ORAL
[2017-05-26 10:27] VITALS: BP 95/57
[2017-05-26] MEDS ORDERED: dilTIAZem HCl 25mg/5ml Inj IVP ONE (11:00)
--- NOTE | 2017-05-26 11:22 | Emergency Room Report ---
History of Present Illness General Chief Complaint: Seizure Source: Medical Record, EMS Present Illness HPI 71-year-old female, history of major depressive disorder GERD, CVA, resenting with multiple seizure episodes. Patient had a generalized tonic-clonic seizure as [facility], about 4 minutes, when EMS arrived patient was again having a generalized tonic-clonic seizure about 4 minutes. Patient unresponsive after. To their knowledge she has no history of any seizures Allergies: Coded Allergies: No Known Allergies (Unverified , 04/30/16) Patient History Past Medical History: see triage record Past Surgical History: none Pertinent Family History: none Reviewed Nursing Documentation: PMH: Agreed, PSxH: Agreed Nursing Documentation-PMH Hx Cardiac Problems: Yes - AFIB Hx Hypertension: Yes - Hyperlipidemia Hx Cancer: No Hx Gastrointestinal Problems: Yes - GERD Hx Neurological Problems: Yes Hx Cerebrovascular Accident: Yes Hx Dementia: Yes Review of Systems All Other Systems: limited - unresponsive Physical Exam Vital Signs Date Time Temp Pulse Resp B/P (MAP) Pulse Ox O2 Delivery O2 Flow Rate FiO2 05/26/17 10:17 98.2 120 16 120/70 98 Room Air Sp02 EP Interpretation: reviewed, normal General Appearance: other - Chronically ill-appearing elderly female, unresponsive Head: normocephalic, atraumatic Eyes: bilateral eye PERRL ENT: normal ENT inspection, normal pharynx, normal voice, moist mucus membranes Neck: supple, no meningismus Respiratory: normal inspection, lungs clear, normal breath sounds, no respiratory distress, no retraction, no wheezing, speaking full sentences, chest symmetrical Cardiovascular #1: no edema, tachycardia, irregularly irregular Cardiovascular #2: 2+ radial (R), 2+ radial (L) Gastrointestinal: other - no grimace deep palpation nonrigid abdomen Musculoskeletal: other - full passive ROM Neurologic: other - unresponsive, no gag reflex and no babinski Psychiatric: other - not responsive Skin: normal inspection, normal color, no rash, warm/dry, well hydrated, normal turgor Procedures Critical Care Time Critical Care Time 40 minutes of CC time 71-year-old female, with seizures, found to be in A. fib with RVR VS: Tachycardic Airway patent. PLAN: IV access, labs, lactate, troponin, Blood/Urine Cx, Abx, IVF, CT head Anticipate admission to Tele vs. JUNI CC time also includes review of labs, review of EMR, discussion with family and paperwork from SNF, d/w hospitalist CC could include dosing of pressors, additional Abx CC time does not include procedures Medical Decision Making Diagnostic Impression: Primary Impression: Seizure disorder Additional Impressions: Atrial fibrillation CVA (cerebral vascular accident) ER Course 71-year-old female with p/w seizure DDX: Status epilepticus Electrolyte disturbance: hypoglycemia vs. hyponatremia vs. hypocalcemia vs. hypomagnesemia Cardiac: Arrythmia/acs Intracranial pathology: intracranial bleed, stroke Plan: BGM EKG Labs, tox labs CT Ativan PRN / anti seizure meds ER course: And initially with rapid A. fib heart rate in the 170s, given fluids, now back down to 84 fluids given as patient with increased lactate ++wbcs in urine, cefepime given for UTI, +febrile, tylenol suppository given CT with subacute CVA continues to protect airway will admit to tele Disposition: Patient will be admitted to tele Discussed with hospitalist Dr Dillard who is covering for Dr Byrne Please note that this Emergency Department Report was dictated using [employer] professor technology software, occasionally this can lead to erroneous entry secondary to interpretation by the dictation equipment. EKG Diagnostic Results EP Interpretation: Yes Rate: Tachycardic Rhythm: Atrial fibrillation ST Segments: T-wave flattening in aVF, ST depressions noted diffusely ASA given to patient: No Rhythm Strip EP Interpretation: Yes Rate: 150 Rhythm: Atrial fibrillation Chest X-ray CXR: Ordered: Yes 1 view Indication: Altered mental status EP interpretation: Yes Interpretation: No consolidation, no effusion, no PTX, no acute cardiopulmonary disease Impression: No acute disease Electronically signed by Warren Shah MD Laboratory Tests Test 05/26/17 10:45 05/26/17 12:45 05/26/17 13:50 White Blood Count 8.2 K/UL (4.8-10.8) Red Blood Count 5.00 M/UL (4.20-5.40) Hemoglobin 13.5 G/DL (12.0-16.0) Hematocrit 43.9 % (37.0-47.0) Mean Corpuscular Volume 88 FL (80-99) Mean Corpuscular Hemoglobin 26.9 PG (27.0-31.0) L Mean Corpuscular Hemoglobin Concent 30.7 G/DL (32.0-36.0) L Red Cell Distribution Width 14.6 % (11.6-14.8) Platelet Count 421 K/UL (150-450) Mean Platelet Volume 7.3 FL (6.5-10.1) Neutrophils (%) (Auto) 82.1 % (45.0-75.0) H Lymphocytes (%) (Auto) 13.7 % (20.0-45.0) L Monocytes (%) (Auto) 3.8 % (1.0-10.0) Eosinophils (%) (Auto) 0.1 % (0.0-3.0) Basophils (%) (Auto) 0.3 % (0.0-2.0) Prothrombin Time 12.0 SEC (9.30-11.50) H Prothrombin Time INR 1.1 (0.9-1.1) PTT 25 SEC (23-33) Urine Color Brown Urine Appearance Slightly cloudy Urine pH 8 (4.5-8.0) Urine Specific [place] 1.015 (1.005-1.035) Urine Protein 3+ (NEGATIVE) H Urine Glucose (UA) Negative (NEGATIVE) Urine Ketones 2+ (NEGATIVE) H Urine Occult Blood 5+ (NEGATIVE) H Urine Nitrite Positive (NEGATIVE) H Urine Bilirubin Negative (NEGATIVE) Urine Urobilinogen 4 MG/DL (0.0-1.0) H Urine Leukocyte Esterase 3+ (NEGATIVE) H Urine RBC 30-40 /HPF (0 - 2) H Urine WBC 20-30 /HPF (0 - 2) H Urine Squamous Epithelial Cells Few /LPF (NONE/OCC) Urine Bacteria Few /HPF (NONE) Urine Yeast Few /HPF (NONE) H Sodium Level 142 MMOL/L (136-145) Potassium Level 3.9 MMOL/L (3.5-5.1) Chloride Level 107 MMOL/L (98-107) Carbon Dioxide Level 18 MMOL/L (21-32) L Anion Gap 17 mmol/L (5-15) H Blood Urea Nitrogen 23 mg/dL (7-18) H Creatinine 1.9 MG/DL (0.55-1.30) H Estimate Glomerular Filtration Rate mL/min (>60) Glucose Level 156 MG/DL (74-106) H Lactic Acid Level 7.90 mmol/L (0.66-2.22) H 6.10 mmol/L (0.66-2.22) H Calcium Level 7.7 MG/DL (8.5-10.1) L Total Bilirubin 0.4 MG/DL (0.2-1.0) Aspartate Amino Transferase (AST) 33 U/L (15-37) Alanine Aminotransferase (ALT) 20 U/L (12-78) Alkaline Phosphatase 115 U/L (46-116) Total Creatine Kinase 71 U/L (26-308) Troponin I 0.040 ng/mL (0.000-0.056) Pro-B-Type Natriuretic Peptide 94512 pg/mL (0-125) H Total Protein 8.9 G/DL (6.4-8.2) H Albumin 2.4 G/DL (3.4-5.0) L Globulin 6.5 g/dL Albumin/Globulin Ratio 0.4 (1.0-2.7) L Arterial Blood pH 7.430 (7.350-7.450) Arterial Blood Partial Pressure CO2 31.4 mmHg (35.0-45.0) L Arterial Blood Partial Pressure O2 71.9 mmHg (75.0-100.0) L Arterial Blood HCO3 20.5 mmol/L (22.0-26.0) L Arterial Blood Oxygen Saturation 93.6 % (92.0-98.0) Arterial Blood Base Excess -2.7 Fidencio Test Positive Last Vital Signs Date Time Temp Pulse Resp B/P (MAP) Pulse Ox O2 Delivery O2 Flow Rate FiO2 05/26/17 10:17 98.2 120 16 120/70 98 Room Air Disposition: ADMITTED INPATIENT Condition: Critical Warren Shah M.D. May 26, 2017 11:22
[2017-05-26 11:33] LABS: BASOPHILS % (AUTO) 0.3 % (0.0-2.0); EOSINOPHILS % (AUTO) 0.1 % (0.0-3.0); HEMATOCRIT 43.9 % (37.0-47.0); HEMOGLOBIN 13.5 G/DL (12.0-16.0); LYMPHOCYTES % (AUTO) 13.7 % (20.0-45.0); MEAN CORPUSCULAR VOLUME 88 FL (80-99); MONOCYTES % (AUTO) 3.8 % (1.0-10.0); NEUTROPHILS % (AUTO) 82.1 % (45.0-75.0); PLATELET COUNT 421 K/UL (150-450); RED CELL DISTRIBUTION WIDTH 14.6 % (11.6-14.8); WHITE BLOOD COUNT 8.2 K/UL (4.8-10.8)
[2017-05-26 11:36] LABS: APPEARANCE,URINE SLIGHTLY CLOUDY; BILIRUBIN, URINE NEGATIVE (NEGATIVE); COLOR,URINE BROWN; GLUCOSE, URINE (UA) NEGATIVE (NEGATIVE); KETONES,URINE 2+ (NEGATIVE); LEUKOCYTE ESTERASE ,URINE 3+ (NEGATIVE); NITRITE,URINE POSITIVE (NEGATIVE); PH,URINE 8 (4.5-8.0); PROTEIN,URINE 3+ (NEGATIVE); UROBILINOGEN,URINE 4 MG/DL (0.0-1.0)
[2017-05-26 11:39] LABS: INR 1.1 (0.9-1.1)
--- NOTE | 2017-05-26 11:44 | Diagnostic Imaging Report ---
Indication: Headache Technique: Contiguous 5 mm thick transaxial imaging of the head obtained in a Siemens Sensation [address] scanner. Soft tissue and bone windows generated. Automatic Exposure Control was utilized. Total Dose length Product (DLP): 1298.[address] Dose Index Volume (CTDIvol): 70.38 mGy Comparison: none Findings: There is an abnormal area of low attenuation in the right temporal and posterior parietal lobe. This has appearance of a late subacute infarct as there is no significant mass effect on the adjacent lateral ventricle. Please correlate clinically. There is no hemorrhage. There is no midline shift. Moderate low attenuation of periventricular and deep white matter noted consistent with chronic small vessel disease. Generalized atrophy of the brain is present. Cystic foci noted in the left thalamus and basal ganglia consistent with old lacunar infarct. Small encephalomalacia also noted in the left occipital region consistent with a previous infarct. IMPRESSION: Suspected late subacute infarct right posterior temporal/parietal lobe. Please correlate clinically. Old infarct left occipital lobe. Old lacunar infarcts in the left thalamus and basal ganglia Chronic small vessel disease. Mild atrophy The CT scanner at [facility] is accredited by the [employer] and the scans are performed using dose optimization techniques as appropriate to a performed exam including Automatic Exposure control.
[2017-05-26 11:46] LABS: ANION GAP 17 mmol/L (5-15); BLOOD UREA NITROGEN 23 mg/dL (7-18); CALCIUM 7.7 MG/DL (8.5-10.1); CARBON DIOXIDE 18 MMOL/L (21-32); CHLORIDE 107 MMOL/L (98-107); CREATININE 1.9 MG/DL (0.55-1.30); POTASSIUM 3.9 MMOL/L (3.5-5.1); SODIUM 142 MMOL/L (136-145)
[2017-05-26 11:52] LABS: ALANINE AMINOTRANSFERASE 20 U/L (12-78); ALBUMIN 2.4 G/DL (3.4-5.0); ALBUMIN/GLOBULIN RATIO 0.4 (1.0-2.7); ALKALINE PHOSPHATASE 115 U/L (46-116); ASPARTATE AMINO TRANSFERASE 33 U/L (15-37); BILIRUBIN,TOTAL 0.4 MG/DL (0.2-1.0); CREATINE KINASE 71 U/L (26-308)
--- NOTE | 2017-05-26 11:54 | Diagnostic Imaging Report ---
Indication: Dyspnea Comparison: 05/17/2017 A single view chest radiograph was obtained. Findings: No definite infiltrate or pulmonary vascular congestion identified. The heart is enlarged. The aorta is mildly enlarged consistent with atherosclerotic vascular disease. The bones are osteopenic. Impression: No acute disease
[2017-05-26 12:00] VITALS: BP 109/78
[2017-05-26 13:50] VITALS: BP 166/85
[2017-05-26] MEDS ORDERED: Cefepime HCl 2 GM in D5W 55 ML IVPB ONE (14:15)
[2017-05-26] MEDS ORDERED: Acetaminophen 650 MG SUPP RECTAL ONE (14:30)
[2017-05-26] MEDS ORDERED: levETIRAcetam 1,000mg/NS100ml 100 ML IVPB ONE (14:30)
[2017-05-26] MEDS ORDERED: Cefepime 2gm ONE (14:40)
[2017-05-26 15:00] VITALS: BP 158/87
[2017-05-26 17:00] VITALS: BP 160/83
[2017-05-26 20:00] VITALS: BP 150/95
[2017-05-27] VITALS: BP 156/110
[2017-05-27 04:00] VITALS: BP 134/71
[2017-05-27] MEDS ORDERED: traMADol 50mg tab ORAL PRN (07:45)
[2017-05-27 08:00] VITALS: BP 117/79
[2017-05-27] MEDS ORDERED: Metoprolol Tartrate 50mg tab ORAL SCH (09:00)
[2017-05-27] MEDS ORDERED: Heparin 5000 units/ml inj SUBQ SCH (09:00)
[2017-05-27] MEDS ORDERED: Eliquis 2.5mg tablet ORAL SCH ×2 (09:00→12:00)
[2017-05-27] MEDS ORDERED: D5 1/2NS 1,000 ML IV SCH (09:00)
[2017-05-27] MEDS ORDERED: PARoxetine 20mg tab ORAL SCH ×2 (09:00→10:00)
[2017-05-27] MEDS: Metoprolol Tartrate 50mg tab ORAL SCH ×2 (09:48→09:53)
[2017-05-27 09:53] LABS: BASOPHILS % (AUTO) 0.8 % (0.0-2.0); EOSINOPHILS % (AUTO) 0.1 % (0.0-3.0); HEMATOCRIT 42.2 % (37.0-47.0); HEMOGLOBIN 13.5 G/DL (12.0-16.0); LYMPHOCYTES % (AUTO) 25.2 % (20.0-45.0); MEAN CORPUSCULAR VOLUME 87 FL (80-99); NEUTROPHILS % (AUTO) 63.9 % (45.0-75.0); PLATELET COUNT 321 K/UL (150-450); RED BLOOD COUNT 4.87 M/UL (4.20-5.40); WHITE BLOOD COUNT 8.6 K/UL (4.8-10.8)
[2017-05-27 10:29] LABS: ALANINE AMINOTRANSFERASE 13 U/L (12-78); ALBUMIN 2.3 G/DL (3.4-5.0); ALBUMIN/GLOBULIN RATIO 0.4 (1.0-2.7); ALKALINE PHOSPHATASE 95 U/L (46-116); ANION GAP 12 mmol/L (5-15); ASPARTATE AMINO TRANSFERASE 36 U/L (15-37); BILIRUBIN,TOTAL 0.6 MG/DL (0.2-1.0); BLOOD UREA NITROGEN 26 mg/dL (7-18); CALCIUM 7.6 MG/DL (8.5-10.1); CARBON DIOXIDE 21 MMOL/L (21-32); CHLORIDE 112 MMOL/L (98-107); CHOLESTEROL 129 MG/DL (< 200); CREATININE 1.4 MG/DL (0.55-1.30); HDL CHOLESTEROL 29 MG/DL (40-60); POTASSIUM 3.9 MMOL/L (3.5-5.1); SODIUM 145 MMOL/L (136-145); TRIGLYCERIDES 128 MG/DL (30-150)
[2017-05-27] MEDS ORDERED: SulfASALAZine 500MG tab ORAL SCH ×2 (11:30→12:00)
[2017-05-27 11:44] VITALS: BP 115/67
[2017-05-27] MEDS ORDERED: HydrALAZINE 10mg Tab ORAL SCH ×4 (12:00)
[2017-05-27] MEDS ORDERED: Cefepime HCl 1 GM in D5W 55 ML IVPB SCH (14:00)
[2017-05-27] MEDS ORDERED: Flu Vaccine Quadrivalent 0.5ml IM ONE (14:30)
--- NOTE | 2017-05-27 15:06 | Diagnostic Imaging Report ---
Indication: NG tube placement Comparison: None Single view of the abdomen obtained Findings: Image of the upper abdomen shows good positioning of the nasogastric tube within the stomach. IMPRESSION: NG tube satisfactory in position
--- NOTE | 2017-05-27 15:19 | History and Physical ---
History of Present Illness General Date patient seen: May 27, 2017 Time patient seen: 15:00 Reason for Hospitalization: Seizure Present Illness HPI 71y/o female with pmh of HTN, HLD, CVA, depression, Afib (on AC) who presents with seizures. Pt recently admitted and treated for ESBL UTI and sent to SNF on IV ertapenem. Pt was found to have 2 generalized tonic clonic seizures while at SNF. Pt currently lethargic and altered, unable to give history. In ER, pt had CT brain showed concern for subacute infarcts. She was given keppra for seizure. Allergies: Coded Allergies: No Known Allergies (Unverified , 04/30/16) Medication History Scheduled Apixaban (Eliquis), 5 MG ORAL BID Atorvastatin Calcium* (Lipitor*), 80 MG ORAL BEDTIME, (Reported) Ertapenem (Invanz), 1 GM IM DAILY Folic Acid* (Folic Acid*), 1 MG ORAL DAILY, (Reported) Gabapentin* (Gabapentin*), 300 MG ORAL DAILY, (Reported) Hydralazine Hcl* (Hydralazine Hcl*), 10 MG ORAL EVERY 6 HOURS, (Reported) Metoprolol Tartrate* (Metoprolol Tartrate*), 50 MG ORAL EVERY 12 HOURS, ( Reported) Metoprolol Tartrate* (Metoprolol Tartrate*), 50 MG ORAL Q12HR Mirtazapine* (Remeron*), 15 MG ORAL BEDTIME, (Reported) Nifedipine (Nifedipine*), 30 MG ORAL EVERY 12 HOURS, (Reported) Nifedipine Xl* (Procardia Xl*), 30 MG ORAL Q12HR Omeprazole (Omeprazole), 20 MG ORAL DAILY, (Reported) Paroxetine Hcl* (Paxil*), 20 MG ORAL DAILY, (Reported) Sulfasalazine* (Azulfidine*), 500 MG ORAL BEFORE MEALS, (Reported) Trazodone* (Trazodone*), 12.5 MG ORAL BEDTIME, (Reported) Valsartan (Diovan), 80 MG ORAL DAILY, (Reported) Scheduled PRN Acetaminophen* (Acetaminophen 325MG Tablet*), 650 MG ORAL Q4H PRN for For Pain, (Reported) Tramadol Hcl* (Ultram*), 50 MG ORAL Q4HR PRN for For Pain, (Reported) Miscellaneous Medications Methotrexate Sodium* (Methotrexate*), 2.5 MG PO, (Reported) Patient History Healthcare decision maker Resuscitation status Advanced Directive on File No Past Medical/Surgical History Past Medical/Surgical History: (1) HLD (hyperlipidemia) (2) HTN (hypertension) (3) Atrial fibrillation (4) Dementia (5) Depression (6) CVA (cerebral vascular accident) Family History Family History: Patient reports no known family medical history. Social History Social History: (1) lives at snf Review of Systems ROS Narrative Unable to obtain as pt with AMS Physical Exam Physical Exam Narrative General: alert, cooperative, no distress, appears stated age Head: normocephalic, without obvious abnormality, atraumatic Eyes: conjunctivae/corneas clear. PERRL, EOM's intact Throat: lips, mucosa, and tongue normal. MMM Neck: supple, symmetrical, trachea midline, and no JVD Lungs: clear to auscultation bilaterally Heart: regular rate and rhythm, S1, S2 normal, no murmur, click, rub or gallop Abdomen: soft, non-tender, non-distended, bowel sounds normal; no masses or organomegaly Extremities: extremities normal, atraumatic, no cyanosis or edema Pulses: 2+ and symmetric Skin: skin color, texture, turgor normal; no rashes or lesions Neurologic: grossly normal, no focal deficits except +dysarthria, R visual field deficit, R>L VII central deficit, quadriparesis Last 24 Hour Vital Signs Date Time Temp Pulse Resp B/P (MAP) Pulse Ox O2 Delivery O2 Flow Rate FiO2 05/27/17 12:00 115/67 05/27/17 12:00 82 05/27/17 11:44 97.5 83 18 115/67 95 Room Air 05/27/17 09:53 91 117/79 05/27/17 09:53 91 117/79 05/27/17 08:00 97.7 91 18 117/79 96 Room Air 05/27/17 08:00 118 05/27/17 04:00 107 05/27/17 04:00 97.9 107 20 134/71 99 Room Air 107 05/27/17 00:00 98.2 100 20 156/110 99 Room Air 05/27/17 00:00 121 05/26/17 20:00 99.5 114 20 150/95 99 Room Air 05/26/17 20:00 118 05/26/17 19:10 99.5 126 16 160/83 100 Room Air 05/26/17 17:00 99.5 126 16 160/83 100 Room Air Intake and Output 05/26/17 05/27/17 18:59 06:59 Intake Total 2055 ml Balance 2055 ml Intake IV Total 2055 ml # Voids 1 1 Laboratory Tests Test 05/27/17 09:40 White Blood Count 8.6 K/UL (4.8-10.8) Red Blood Count 4.87 M/UL (4.20-5.40) Hemoglobin 13.5 G/DL (12.0-16.0) Hematocrit 42.2 % (37.0-47.0) Mean Corpuscular Volume 87 FL (80-99) Mean Corpuscular Hemoglobin 27.7 PG (27.0-31.0) Mean Corpuscular Hemoglobin Concent 31.9 G/DL (32.0-36.0) L Red Cell Distribution Width 15.0 % (11.6-14.8) H Platelet Count 321 K/UL (150-450) Mean Platelet Volume 6.7 FL (6.5-10.1) Neutrophils (%) (Auto) 63.9 % (45.0-75.0) Lymphocytes (%) (Auto) 25.2 % (20.0-45.0) Monocytes (%) (Auto) 10.0 % (1.0-10.0) Eosinophils (%) (Auto) 0.1 % (0.0-3.0) Basophils (%) (Auto) 0.8 % (0.0-2.0) Sodium Level 145 MMOL/L (136-145) Potassium Level 3.9 MMOL/L (3.5-5.1) Chloride Level 112 MMOL/L (98-107) H Carbon Dioxide Level 21 MMOL/L (21-32) Anion Gap 12 mmol/L (5-15) Blood Urea Nitrogen 26 mg/dL (7-18) H Creatinine 1.4 MG/DL (0.55-1.30) H Estimat Glomerular Filtration Rate mL/min (>60) Glucose Level 92 MG/DL (74-106) Calcium Level 7.6 MG/DL (8.5-10.1) L Total Bilirubin 0.6 MG/DL (0.2-1.0) Aspartate Amino Transf (AST/SGOT) 36 U/L (15-37) Alanine Aminotransferase (ALT/SGPT) 13 U/L (12-78) Alkaline Phosphatase 95 U/L (46-116) Troponin I 0.055 ng/mL (0.000-0.056) Pro-B-Type Natriuretic Peptide 97092 pg/mL (0-125) H Total Protein 8.3 G/DL (6.4-8.2) H Albumin 2.3 G/DL (3.4-5.0) L Globulin 6.0 g/dL Albumin/Globulin Ratio 0.4 (1.0-2.7) L Triglycerides Level 128 MG/DL (30-150) Cholesterol Level 129 MG/DL (< 200) LDL Cholesterol 83 mg/dL (<100) HDL Cholesterol 29 MG/DL (40-60) L Cholesterol/HDL Ratio 4.4 (3.3-4.4) Height (Feet): 5 Height (Inches): 6.00 Weight (Pounds): 130 Medications Current Medications Medications (Trade) Dose Ordered Sig/Renea Route PRN Reason Start Time Stop Time Status Last Admin Dose Admin Acetaminophen (Tylenol) 650 mg Q4H PRN ORAL Mild Pain/Temp > 100.5 05/27/17 07:45 06/26/17 07:44 Apixaban (Eliquis) 2.5 mg BID ORAL 05/27/17 12:00 06/26/17 11:59 Atorvastatin Calcium (Lipitor) 80 mg BEDTIME ORAL 05/27/17 21:00 06/26/17 20:59 Cefepime HCl 1 gm/ Dextrose 55 ml @ 110 mls/hr Q24H IVPB 05/27/17 14:00 06/03/17 13:59 05/27/17 14:39 Dextrose/Sodium Chloride 1,000 ml @ 75 mls/hr [id number] IV 05/27/17 09:00 06/26/17 08:59 05/27/17 09:48 Folic Acid (Folate) 1 mg DAILY ORAL 05/27/17 09:00 06/26/17 08:59 Hydralazine HCl (Apresoline) 10 mg Q6HR ORAL 05/27/17 12:00 06/26/17 11:59 Levetiracetam (Keppra) 500 mg Q12HR ORAL 05/27/17 09:00 06/26/17 08:59 Methotrexate (metHOTREXate) 2.5 mg ONCE A WEEK ORAL 05/28/17 09:00 06/02/17 08:59 Metoprolol Tartrate (Lopressor) 50 mg Q12HR ORAL 05/27/17 10:00 06/26/17 09:59 Mirtazapine (Remeron) 15 mg BEDTIME ORAL 05/27/17 21:00 06/26/17 20:59 Paroxetine HCl (Paxil) 20 mg DAILY ORAL 05/27/17 10:00 06/26/17 09:59 Sulfasalazine (Azulfidine) 500 mg EVERY 6 HOURS ORAL 05/27/17 12:00 06/26/17 11:59 Tramadol HCl (Ultram) 50 mg Q4H PRN ORAL Moderate Pain (Pain Scale 4-6) 05/27/17 07:45 06/03/17 07:44 Assessment/Plan Problem List: (1) CVA (cerebral vascular accident) ICD Codes: I63.9 - Cerebral infarction, unspecified SNOMED: 343117460 (2) Toxic metabolic encephalopathy ICD Codes: G92 - Toxic encephalopathy SNOMED: 241079523 (3) Acute kidney injury ICD Codes: N17.9 - Acute kidney failure, unspecified SNOMED: 92670731 (4) Lactic acid acidosis ICD Codes: E87.2 - Acidosis SNOMED: 38166316 (5) Atrial fibrillation with RVR ICD Codes: I48.91 - Unspecified atrial fibrillation SNOMED: 225257620961591 (6) Seizure ICD Codes: R56.9 - Unspecified convulsions SNOMED: 75906510 (7) Dementia ICD Codes: F03.90 - Unspecified dementia without behavioral disturbance SNOMED: 94298211 (8) Depression ICD Codes: F32.9 - Major depressive disorder, single episode, unspecified SNOMED: 20434590 (9) UTI (urinary tract infection) ICD Codes: N39.0 - Urinary tract infection, site not specified SNOMED: 60593216 (10) HTN (hypertension) ICD Codes: I10 - Essential (primary) hypertension SNOMED: 82199796 Status: stable Assessment/Plan Admit to tele Neurology and cardiology consulted Check MRI brain Check EEG Keppra 500mg BID Neuro checks Cont ASA, statin Check TTE Cont MTP and Eliquis NPO per swallow eval NGT placed for feeds and meds (son agreed) ID consulted Cont meropenem for UTI F/u cultures PT/OT eval DVT Prophylaxis: SCD, Eliquis Code Status: Full Hospital Classification Declaration: Based on this initial evaluation, and depending on the patient's clinical course, I anticipate that this patient will require hospitalization for 2-3 days for CVA, seizure, Afib with RVR and close respiratory/hemodynamic monitoring. Disposition: Once the patient is stable to leave the hospital, I anticipate the patient will likely be discharged to the following environment: back to SNF I spent 70 minutes on this patient's case, and 39 minutes were dedicated to counseling and/or care coordination. Discussed with patient/family, nursing staff, SW/CM, neuro, cardiology, ID regarding clinical status, treatment course , and disposition planning. Time of note may not reflect time of encounter. Agapito Butler M.D. May 27, 2017 15:19
[2017-05-27] MEDS ORDERED: traMADol 50mg tab NG PRN (15:45)
[2017-05-27 16:00] VITALS: BP 117/75
--- NOTE | 2017-05-27 16:34 | Cardiac Electrophysiology PN ---
Subjective Subjective EP consult dictated [id number] Objective Last 24 Hour Vital Signs Date Time Temp Pulse Resp B/P (MAP) Pulse Ox O2 Delivery O2 Flow Rate FiO2 05/27/17 16:00 97.2 76 20 117/75 98 Room Air 05/27/17 12:00 115/67 05/27/17 12:00 82 05/27/17 11:44 97.5 83 18 115/67 95 Room Air 05/27/17 09:53 91 117/79 05/27/17 09:53 91 117/79 05/27/17 08:00 97.7 91 18 117/79 96 Room Air 05/27/17 08:00 118 05/27/17 04:00 107 05/27/17 04:00 97.9 107 20 134/71 99 Room Air 107 05/27/17 00:00 98.2 100 20 156/110 99 Room Air 05/27/17 00:00 121 05/26/17 20:00 99.5 114 20 150/95 99 Room Air 05/26/17 20:00 118 05/26/17 19:10 99.5 126 16 160/83 100 Room Air 05/26/17 17:00 99.5 126 16 160/83 100 Room Air Intake and Output 05/26/17 05/27/17 19:00 07:00 Intake Total 2055 ml Balance 2055 ml Intake IV Total 2055 ml # Voids 1 1 Laboratory Tests Test 05/27/17 09:40 White Blood Count 8.6 K/UL (4.8-10.8) Red Blood Count 4.87 M/UL (4.20-5.40) Hemoglobin 13.5 G/DL (12.0-16.0) Hematocrit 42.2 % (37.0-47.0) Mean Corpuscular Volume 87 FL (80-99) Mean Corpuscular Hemoglobin 27.7 PG (27.0-31.0) Mean Corpuscular Hemoglobin Concent 31.9 G/DL (32.0-36.0) L Red Cell Distribution Width 15.0 % (11.6-14.8) H Platelet Count 321 K/UL (150-450) Mean Platelet Volume 6.7 FL (6.5-10.1) Neutrophils (%) (Auto) 63.9 % (45.0-75.0) Lymphocytes (%) (Auto) 25.2 % (20.0-45.0) Monocytes (%) (Auto) 10.0 % (1.0-10.0) Eosinophils (%) (Auto) 0.1 % (0.0-3.0) Basophils (%) (Auto) 0.8 % (0.0-2.0) Sodium Level 145 MMOL/L (136-145) Potassium Level 3.9 MMOL/L (3.5-5.1) Chloride Level 112 MMOL/L (98-107) H Carbon Dioxide Level 21 MMOL/L (21-32) Anion Gap 12 mmol/L (5-15) Blood Urea Nitrogen 26 mg/dL (7-18) H Creatinine 1.4 MG/DL (0.55-1.30) H Estimat Glomerular Filtration Rate mL/min (>60) Glucose Level 92 MG/DL (74-106) Calcium Level 7.6 MG/DL (8.5-10.1) L Total Bilirubin 0.6 MG/DL (0.2-1.0) Aspartate Amino Transf (AST/SGOT) 36 U/L (15-37) Alanine Aminotransferase (ALT/SGPT) 13 U/L (12-78) Alkaline Phosphatase 95 U/L (46-116) Troponin I 0.055 ng/mL (0.000-0.056) Pro-B-Type Natriuretic Peptide 14466 pg/mL (0-125) H Total Protein 8.3 G/DL (6.4-8.2) H Albumin 2.3 G/DL (3.4-5.0) L Globulin 6.0 g/dL Albumin/Globulin Ratio 0.4 (1.0-2.7) L Triglycerides Level 128 MG/DL (30-150) Cholesterol Level 129 MG/DL (< 200) LDL Cholesterol 83 mg/dL (<100) HDL Cholesterol 29 MG/DL (40-60) L Cholesterol/HDL Ratio 4.4 (3.3-4.4) Microbiology Date/Time Source Procedure Growth Status 05/26/17 10:45 Urine,Clean Catch Urine Culture - Preliminary Resulted BRODY AGUILAR May 27, 2017 16:34
[2017-05-27] MEDS ORDERED: Meropenem 1 GM in NS 55 ML IVPB SCH (17:00)
[2017-05-27] MEDS: Aspirin Baby 81mg NG SCH (17:23)
[2017-05-27] MEDS: HydrALAZINE 10mg Tab NG SCH ×2 (17:45→23:16)
[2017-05-27] MEDS: SulfASALAZine 500MG tab NG SCH ×2 (17:45→23:16)
[2017-05-27] MEDS: Eliquis 2.5mg tablet GT SCH (17:45)
--- NOTE | 2017-05-27 17:56 | Wound Care Consultation ---
Wound Assessment Wound Assessment : Wound Number: 1 Wound Present on Admission: Yes New Wound: No Status Change of Wound: No Wound Location Body Site: other - sacrococcygeal and perineal area Wound Type: other - dry and flaky skin Miroslava Test: Does not Miroslava Wound Drainage Amount: None Wound Drainage Odor: None/Absent Tissue Surrounding Wound: Intact Wound Comment #1 Dry flaky skin on perineal area and sacrococcygeal area Recommendation -Keep clean and dry -Turn and reposition -Assess and f/u accordingly for any changes -Offload both heels -Heel protector on both heels -Optimize nutrition -Low air loss [facility] TRACIE GUAMAN RN May 27, 2017 17:56
[2017-05-27 20:00] VITALS: BP 116/64
[2017-05-27] MEDS ORDERED: Atorvastatin 80mg tab ORAL SCH ×2 (21:00)
--- NOTE | 2017-05-27 21:45 | Consultation ---
Consult Note Consult Note NEUROLOGY CONSULTATION: Full note dictated #[id number] 71 y/o, RH, BF with PH of depression, HTN, DL, CVD with multiple strokes, and chronic anticoagulation. She was hospitalized after having had 2 GTC seizures. ON EXAM: Severe dysarthria and aphasia. Possible right VF deficit. R>L VII central Quadriparesis with poor effort. IMPRESSION: MIBD with CT revealing infarcts in the right temporal, left occipital, left thalamus and BG. Seizure due to underlying structural brain disease with superimposed infection ( UTI) REC: EEG MRI Continue [facility] 500 q 12 H. Goran Gomez M.D., M.S.P.GORAN LERMA May 27, 2017 21:45
[2017-05-27] MEDS: Atorvastatin 80mg tab NG SCH (23:06)
[2017-05-27] MEDS: Metoprolol Tartrate 50mg tab NG SCH (23:07)
[2017-05-28] VITALS: BP 129/80
--- NOTE | 2017-05-28 00:15 | Consultation ---
DATE OF CONSULTATION: 05/27/2017 NEUROLOGY CONSULTATION REQUESTING PHYSICIAN: Agapito Butler M.D. HISTORY: Ms. Marcelle Marquez is a 71-year-old, right-handed, black lady, who does have a past history of depression, hypertension, dyslipidemia, and cerebrovascular disease with multiple strokes in the past, who is on chronic anticoagulation. She apparently lives in a [facility] where she was noted to have two generalized tonic-colonic seizures. She was thus brought into the [facility] Emergency Room. On being evaluated in the emergency room, she was found to have a significant urinary tract infection. She has been treated for her urinary tract infection and has been started on Keppra 500 mg twice a day for her seizures. She did also have a CT scan of the brain performed, which revealed multiple infarcts with cortical infarcts in the right temporal area, left occipital area, and subcortical infarcts in the left thalamus and basal ganglia. This consultation was requested to evaluate the patient for new onset seizures. The patient herself was unable to give me any history. PAST MEDICAL HISTORY: Significant for hypertension, depression, dyslipidemia, cerebrovascular disease with multiple strokes, chronic anticoagulation for atrial fibrillation. FAMILY HISTORY: Unavailable. PERSONAL HISTORY: Home: She lives in [facility]. Work: She was unable to tell me what kind of work she did in the past. Habits: She was unable to tell me if she used alcohol, tobacco, or illicit drugs in the past or presently. PRESENT MEDICATIONS: Include folic acid, methotrexate, Paxil, Lipitor, Keppra 500 mg q.12 h., Lopressor, Remeron, Eliquis, hydralazine, sulfasalazine, meropenem, aspirin 81 mg daily, tramadol p.r.n., and Tylenol p.r.n. PHYSICAL EXAMINATION: GENERAL: She is a well-developed, well-nourished, pleasant, black lady, lying in bed, in no acute distress. VITAL SIGNS: Pulse 87 per minute, blood pressure 116/64 mmHg, respirations 16 per minute, and temperature 98 degrees Fahrenheit. HEAD: Normocephalic and atraumatic. NECK: No neck rigidity was observed. EENT: Benign. NEUROLOGIC EXAMINATION: MENTAL STATUS EXAMINATION: She was awake and alert. She was oriented to self only. She had no idea where she was or what the date was. She was able to repeat 3 words, but was unable to remember any of them in 1 minute and 3 minutes. Further mental status testing was quite impossible because of significant dysarthria and possibly an aphasia. SPEECH: She had severe dysarthria. LANGUAGE: She had problems with comprehension and expression of language. CRANIAL NERVE EXAMINATION: II: She had a possible right visual field deficit to threat. She was unable to cooperate for confrontation testing. III, IV & : External ocular movements are full and the pupils 3 mm in diameter, equal, round, regular, and reactive sluggishly to light. V: She had normal facial sensations and the temporales, masseters, and pterygoids functioned normally. VII: She had a right greater than left seventh central facial paresis. VIII: She seemed to be able to hear and had no nystagmus. IX: The palate moved symmetrically on phonation. X: She had no hoarseness of voice. XI: The sternocleidomastoids and trapezii functioned normally. XII: The tongue was in the midline without any fasciculations or atrophy. MOTOR SYSTEM: The tone was increased in all four extremities with a mild degree of spasticity. Examination of muscle mass revealed generalized muscle wasting. Examination of power was exceedingly difficult to perform because of varying degrees of cooperation. 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 SENSORY EXAMINATION: She responded appropriately to deep pain. She was unable to cooperate for other sensory modalities. REFLEXES: Trace+ and bilaterally symmetrical at the biceps, triceps, brachioradialis, and knees, 0 at both ankles. The plantar responses were extensor bilaterally. COORDINATION, STANCE & GAIT: Could not be tested. DIAGNOSTIC IMPRESSION: 1. Ms. Marcelle Marquez is a 71-year-old, right-handed, black lady, who does have a past history of depression, hypertension, dyslipidemia, cerebrovascular disease with multiple strokes, and chronic anticoagulation for atrial fibrillation, who was hospitalized after she had two generalized tonic-clonic seizures in her [facility]. On being evaluated in the emergency room, she was found to have a significant urinary tract infection. 2. On neurological examination, at this time, she does demonstrate significant problems with orientation, recent and remote memory, high cognitive function, and language. 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 3. The CT scan of the brain reveals chronic infarcts involving the right temporal lobe, left occipital lobe, left thalamus, and basal ganglia. 4. Her laboratory data revealed that the lactic acid was elevated to 6.1. Her BUN was elevated to 26 with a creatinine of 1.4. Her proBNP was elevated to 12,677. She was hypoalbuminemic with albumin of 2.3 and her urinalysis revealed 3+ leukocyte esterase, 30 to 40 red blood cells, and 20 to 30 white blood cells per high-power field. 5. 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 However, an acute cerebrovascular event should also be excluded. RECOMMENDATIONS: 1. Agree with management thus far. 2. An EEG will be ordered to evaluate the patient for the type of seizure disorder. 3. An MRI will be ordered to evaluate the patient for an acute cerebrovascular event. 4. The patient should be continued on Keppra 500 mg q.12 h. for seizure prophylaxis. 5. The patient's urinary tract infection should be treated aggressively. 6. The patient will be observed closely and depending on how she fares over the next day or so, further recommendations will be given. Thank you for entrusting me with the care of Ms. Marquez. I shall follow her with you. Aleksander Gomez M.D., M.S.P.H. DR: Sharri JOB#: [id number] TAYLA
--- NOTE | 2017-05-28 03:00 | Consultation ---
DATE OF CONSULTATION: 05/27/2017 CARDIOLOGY CONSULTATION CONSULTING PHYSICIAN: Naveen Perez M.D. REFERRING PHYSICIAN: Melanie Byrne M.D. REASON FOR CONSULTATION: Management of atrial fibrillation. HISTORY OF PRESENT ILLNESS: The patient is a 71-year-old lady with history of hypertension and prior CVA as well as atrial fibrillation and gastroesophageal reflux disease, was brought to the emergency room for multiple seizure episodes. The patient was noted to have generalized tonic-clonic seizures per [facility] staff and when the EMS arrived, the patient was under episode of seizures lasting about 4 minutes. The patient was admitted and a Cardiology consultation was obtained for further evaluation. It is of note that at the [facility] the patient was already on Eliquis and labetalol. Her previous admission was 05/16/2017. PAST MEDICAL HISTORY: 1. Chronic atrial fibrillation. 2. Troponin leak. 3. History of sepsis. 4. History of CVA. 5. Dementia. Her last echocardiogram showed ejection fraction of 55% with left atrial enlargement and right atrial enlargement and diastolic dysfunction. REVIEW OF SYSTEMS: Cannot be obtained as the patient currently is confused. PHYSICAL EXAMINATION: VITAL SIGNS: Showed blood pressure 132/75, pulse 76, and respiratory rate 20. HEAD AND NECK: Showed no JVD. She has an NG-tube. . LUNGS: Decreased breath sounds. CARDIOVASCULAR: Shows irregular S1 and S2 with no gallop. ABDOMEN: Soft. EXTREMITIES: No pitting edema. DIAGNOSTIC DATA: Her EKG showed atrial fibrillation and rapid ventricular response at a rate of 150 beats per minute. LABORATORY DATA: Her labs showed white count of 8.2, hemoglobin 13.5, hematocrit 42.2, and platelet count of 321,000. Sodium 145, potassium 3.9, BUN of 23, creatinine 1.4, and glucose of 92. Troponin was 0.04 and 0.05. BNP is 12,677. INR is 1.1. ASSESSMENT AND PLAN: 1. Atrial fibrillation with rapid ventricular response. The patient is on metoprolol 50 mg b.i.d. as well as Eliquis 2.5 mg b.i.d. We will await evaluation by Dr. Gomez. higher dose of Eliquis must be avoided for risk of hemorrhagic conversion. It is of note that the patient's CT scan showed a suspected subacute infarct in the right posterior temporal and parietal lobe. 2. Hypertension. Continue metoprolol 50 mg b.i.d. The patient is on intravenous hydralazine as well. 3. Subacute cerebrovascular accident. Further evaluation by Dr. Gomez until the patient is formally evaluated by Dr. Gomez. 4. Hypertension. Continue metoprolol 50 mg b.i.d. 5. Seizures, on Keppra. 6. Possible rheumatoid arthritis. The patient is on methotrexate and folic acid. 7. History of sepsis, on meropenem. Thank you very much, Dr. Byrne, for allowing me to participate in the care of this patient. Please do not hesitate to contact me for any questions regarding my evaluation. Naveen Perez M.D. DR: ASHWIN JOB#: [id number] CC:
[2017-05-28 04:00] VITALS: BP 123/60
[2017-05-28 08:00] VITALS: BP 126/68
[2017-05-28] MEDS: SulfASALAZine 500MG tab NG SCH ×4 (08:01→23:39)
[2017-05-28] MEDS: HydrALAZINE 10mg Tab NG SCH ×2 (08:01→11:59)
--- NOTE | 2017-05-28 08:58 | Consultation ---
History of Present Illness General Date patient seen: May 27, 2017 Chief Complaint: Seizure Present Illness HPI 71-year-old right-handed, black lady, who does have a past history of depression , hypertension, dyslipidemia, and cerebrovascular disease with multiple strokes in the past, who is on chronic anticoagulation. She apparently lives in a skilled nursing where she was noted to have two generalized tonic-colonic seizures. the pt is alert oriented to self. the pt is not able to provide any history. the pt pw waxing and waning of consciousness. Allergies: Coded Allergies: No Known Allergies (Unverified , 04/30/16) Medication History Scheduled Apixaban (Eliquis), 5 MG ORAL BID Atorvastatin Calcium* (Lipitor*), 80 MG ORAL BEDTIME, (Reported) Ertapenem (Invanz), 1 GM IM DAILY Folic Acid* (Folic Acid*), 1 MG ORAL DAILY, (Reported) Gabapentin* (Gabapentin*), 300 MG ORAL DAILY, (Reported) Hydralazine Hcl* (Hydralazine Hcl*), 10 MG ORAL EVERY 6 HOURS, (Reported) Metoprolol Tartrate* (Metoprolol Tartrate*), 50 MG ORAL EVERY 12 HOURS, ( Reported) Metoprolol Tartrate* (Metoprolol Tartrate*), 50 MG ORAL Q12HR Mirtazapine* (Remeron*), 15 MG ORAL BEDTIME, (Reported) Nifedipine (Nifedipine*), 30 MG ORAL EVERY 12 HOURS, (Reported) Nifedipine Xl* (Procardia Xl*), 30 MG ORAL Q12HR Omeprazole (Omeprazole), 20 MG ORAL DAILY, (Reported) Paroxetine Hcl* (Paxil*), 20 MG ORAL DAILY, (Reported) Sulfasalazine* (Azulfidine*), 500 MG ORAL BEFORE MEALS, (Reported) Trazodone* (Trazodone*), 12.5 MG ORAL BEDTIME, (Reported) Valsartan (Diovan), 80 MG ORAL DAILY, (Reported) Scheduled PRN Acetaminophen* (Acetaminophen 325MG Tablet*), 650 MG ORAL Q4H PRN for For Pain, (Reported) Tramadol Hcl* (Ultram*), 50 MG ORAL Q4HR PRN for For Pain, (Reported) Miscellaneous Medications Methotrexate Sodium* (Methotrexate*), 2.5 MG PO, (Reported) Patient History History Provided By: Medical Record, PMD Healthcare decision maker Resuscitation status Advanced Directive on File No Review of Systems Psychiatric: Reports: prior hx, emotional problems Physical Exam General Appearance: no apparent distress, alert, confused Neurologic: alert, disoriented, depressed affect Last 24 Hour Vital Signs Date Time Temp Pulse Resp B/P (MAP) Pulse Ox O2 Delivery O2 Flow Rate FiO2 05/28/17 08:01 123/60 05/28/17 08:00 97.2 90 20 126/68 95 Room Air 05/28/17 04:39 85 05/28/17 04:00 97.0 70 16 123/60 98 05/28/17 00:00 97.0 75 18 129/80 100 05/27/17 23:16 116/64 05/27/17 23:07 87 116/64 05/27/17 20:00 98.0 87 16 116/64 98 05/27/17 17:45 117/75 05/27/17 16:00 97.2 76 20 117/75 98 Room Air 05/27/17 16:00 80 05/27/17 12:00 115/67 05/27/17 12:00 82 05/27/17 11:44 97.5 83 18 115/67 95 Room Air 05/27/17 09:53 91 117/79 05/27/17 09:53 91 117/79 Intake and Output 05/27/17 05/28/17 19:00 07:00 Intake Total 635 ml 75 ml Balance 635 ml 75 ml Intake IV Total 635 ml 75 ml # Bowel Movements 2 Laboratory Tests Test 05/27/17 09:40 05/27/17 20:30 White Blood Count 8.6 K/UL (4.8-10.8) Red Blood Count 4.87 M/UL (4.20-5.40) Hemoglobin 13.5 G/DL (12.0-16.0) Hematocrit 42.2 % (37.0-47.0) Mean Corpuscular Volume 87 FL (80-99) Mean Corpuscular Hemoglobin 27.7 PG (27.0-31.0) Mean Corpuscular Hemoglobin Concent 31.9 G/DL (32.0-36.0) L Red Cell Distribution Width 15.0 % (11.6-14.8) H Platelet Count 321 K/UL (150-450) Mean Platelet Volume 6.7 FL (6.5-10.1) Neutrophils (%) (Auto) 63.9 % (45.0-75.0) Lymphocytes (%) (Auto) 25.2 % (20.0-45.0) Monocytes (%) (Auto) 10.0 % (1.0-10.0) Eosinophils (%) (Auto) 0.1 % (0.0-3.0) Basophils (%) (Auto) 0.8 % (0.0-2.0) Sodium Level 145 MMOL/L (136-145) Potassium Level 3.9 MMOL/L (3.5-5.1) Chloride Level 112 MMOL/L (98-107) H Carbon Dioxide Level 21 MMOL/L (21-32) Anion Gap 12 mmol/L (5-15) Blood Urea Nitrogen 26 mg/dL (7-18) H Creatinine 1.4 MG/DL (0.55-1.30) H Estimat Glomerular Filtration Rate mL/min (>60) Glucose Level 92 MG/DL (74-106) Calcium Level 7.6 MG/DL (8.5-10.1) L Total Bilirubin 0.6 MG/DL (0.2-1.0) Aspartate Amino Transf (AST/SGOT) 36 U/L (15-37) Alanine Aminotransferase (ALT/SGPT) 13 U/L (12-78) Alkaline Phosphatase 95 U/L (46-116) Troponin I 0.055 ng/mL (0.000-0.056) Pro-B-Type Natriuretic Peptide 48276 pg/mL (0-125) H Total Protein 8.3 G/DL (6.4-8.2) H Albumin 2.3 G/DL (3.4-5.0) L Globulin 6.0 g/dL Albumin/Globulin Ratio 0.4 (1.0-2.7) L Triglycerides Level 128 MG/DL (30-150) Cholesterol Level 129 MG/DL (< 200) LDL Cholesterol 83 mg/dL (<100) HDL Cholesterol 29 MG/DL (40-60) L Cholesterol/HDL Ratio 4.4 (3.3-4.4) Lactic Acid Level 1.10 mmol/L (0.66-2.22) Height (Feet): 5 Height (Inches): 6.00 Weight (Pounds): 130 Medications Current Medications Medications (Trade) Dose Ordered Sig/Renea Route PRN Reason Start Time Stop Time Status Last Admin Dose Admin Acetaminophen (Tylenol) 650 mg Q4H PRN ORAL Mild Pain/Temp > 100.5 05/27/17 07:45 06/26/17 07:44 Apixaban (Eliquis) 2.5 mg BID GT 05/27/17 18:00 06/26/17 17:59 05/27/17 17:45 Aspirin (ASA) 81 mg DAILY NG 05/27/17 16:00 06/26/17 15:59 05/27/17 17:23 Atorvastatin Calcium (Lipitor) 80 mg BEDTIME NG 05/27/17 21:00 06/26/17 20:59 05/27/17 23:06 Folic Acid (Folate) 1 mg DAILY NG 05/28/17 09:00 06/27/17 08:59 Hydralazine HCl (Apresoline) 10 mg Q6HR NG 05/27/17 18:00 06/26/17 17:59 05/28/17 08:01 Levetiracetam (Keppra) 500 mg Q12HR NG 05/27/17 21:00 06/26/17 20:59 05/27/17 23:06 Meropenem 1 gm/ Sodium Chloride 55 ml @ 110 mls/hr Q12HR@0500,1700 IVPB 05/27/17 17:00 05/28/17 16:59 05/27/17 17:46 Methotrexate (metHOTREXate) 2.5 mg ONCE A WEEK NG 05/28/17 09:00 06/02/17 08:59 Metoprolol Tartrate (Lopressor) 50 mg Q12HR NG 05/27/17 21:00 06/26/17 20:59 05/27/17 23:07 Mirtazapine (Remeron) 15 mg BEDTIME NG 05/27/17 21:00 06/26/17 20:59 05/27/17 23:06 Paroxetine HCl (Paxil) 20 mg DAILY NG 05/28/17 09:00 06/27/17 08:59 Sodium Chloride 1,000 ml @ 75 mls/hr [id number] IV 05/27/17 16:00 06/26/17 15:59 05/27/17 16:01 Sulfasalazine (Azulfidine) 500 mg EVERY 6 HOURS NG 05/27/17 18:00 06/26/17 17:59 05/28/17 08:01 Tramadol HCl (Ultram) 50 mg Q4H PRN NG Moderate Pain (Pain Scale 4-6) 05/27/17 15:45 06/03/17 15:44 Assessment/Plan Status: unchanged Assessment/Plan encephalopathy mdd dc trazadone cont remeron change paxil to hs and decrease it to 10mg qhs Kunal Tse M.D. May 28, 2017 08:58
[2017-05-28] MEDS ORDERED: PARoxetine 20mg tab NG SCH (09:00)
[2017-05-28] MEDS: Tamsulosin 0.4mg cap ORAL SCH (10:07)
[2017-05-28] MEDS: Eliquis 2.5mg tablet GT SCH ×2 (10:07→17:19)
[2017-05-28] MEDS: Metoprolol Tartrate 50mg tab NG SCH ×2 (10:07→23:38)
[2017-05-28] MEDS: Aspirin Baby 81mg NG SCH (10:08)
--- NOTE | 2017-05-28 10:31 | Diagnostic Imaging Report ---
Indication: Headache, abnormal recent CT scan Technique: sagittal T1 fast spin echo, axial T1 FLAIR, axial T2 FLAIR, axial T2 FS PROPELLER, axial T2* GRE, axial diffusion weighted images. ADC and exponential ADC maps generated Comparison: CT scan dated 05/26/2017 Findings: No abnormal areas of restricted diffusion to suggest acute infarction. In particular, the area of encephalomalacia in the right posterior temporal and parietal lobes seen on recent CT scan does not demonstrate any evidence of diffusion restriction. Punctate and curvilinear foci and more diffuse foci of susceptibility artifact are seen within this area of encephalomalacia, consistent with old hemorrhage. Other scattered punctate foci of sensibility artifact are seen within the medulla, armen, the bilateral basal ganglia, and the left posterior parietal lobe. No mass effect nor midline shift. There is age-related enlargement of the ventricles and extra axial CSF spaces. There is some encephalomalacia involving the high left parietal lobe. There is extensive periventricular deep white matter chronic ischemic change. There is encephalomalacia of the bilateral medial occipital lobes. The vascular flow voids are preserved. There are old lacunar infarcts in the bilateral basal ganglia. Visualized orbits and sinuses are unremarkable. Impression: Negative for acute infarct. Areas of encephalomalacia within the right parietal and temporal lobes, bilateral occipital lobes, high left parietal lobe seen on recent CT are demonstrated to be old infarcts Evidence of prior hemorrhage within the right temporoparietal infarct Evidence of multifocal prior intracranial microhemorrhages. 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 Amyloid angiopathy also a possibility, although the distribution is less characteristic. Multiple old lacunar infarcts, as described Other chronic and age-related changes, as described Negative for acute intracranial bleed, mass effect, or infarct
--- NOTE | 2017-05-28 10:43 | Diagnostic Imaging Report ---
APPROVED REPORT CPT Code: 80161 Vascular Symptoms CVA/TIA: Doppler Spectral Velocity Analysis RightLeft dICA30/18 cm/sdICA51/22 cm/s pICA35/10 cm/spICA51/21 cm/s ECA23/8 cm/sECA27/3 cm/s dCCA29/7 cm/sdCCA31/9 cm/s pCCA50/10 cm/spCCA28/9 cm/s Vert.27/7 cm/sVert.71/19 cm/s Right ICA/CCA ratio0.7Left ICA/CCA ratio1.6 Technically limited study due to pt motion, particularly on the left side. BILATERAL: CCA/BULB - Imaging reveals irregular, minimal plaque in both carotid arteries. arteries. The Doppler spectral flow analysis is within normal limits throughout the internal and external carotid arteries. VERTEBRALS - Imaging reveals both vertebral arteries to be patent, without evidence of stenosis or steal.
[2017-05-28] MEDS ORDERED: Meropenem 1 GM in NS 55 ML IVPB SCH (11:00)
[2017-05-28 11:49] VITALS: BP 124/74
--- NOTE | 2017-05-28 15:41 | General Progress Note ---
Assessment/Plan Status: stable, progressing Assessment/Plan encephalopathy mdd anxiety -decrease paxil and changed it to hs -cont remeron Subjective Date patient seen: May 28, 2017 Neurologic/Psychiatric: Reports: anxiety, depressed Allergies: Coded Allergies: No Known Allergies (Unverified , 04/30/16) Subjective the pt is more alert min verbal participated in pt. the pt meds are changed. no agitation Objective Last 24 Hour Vital Signs Date Time Temp Pulse Resp B/P (MAP) Pulse Ox O2 Delivery O2 Flow Rate FiO2 05/28/17 12:00 91 05/28/17 11:59 124/74 05/28/17 11:49 97.0 95 20 124/74 95 Room Air 05/28/17 10:07 84 123/60 05/28/17 08:01 123/60 05/28/17 08:00 84 05/28/17 08:00 97.2 90 20 126/68 95 Room Air 05/28/17 04:39 85 05/28/17 04:00 97.0 70 16 123/60 98 05/28/17 00:00 97.0 75 18 129/80 100 05/27/17 23:16 116/64 05/27/17 23:07 87 116/64 05/27/17 20:00 98.0 87 16 116/64 98 05/27/17 17:45 117/75 05/27/17 16:00 97.2 76 20 117/75 98 Room Air 05/27/17 16:00 80 Intake and Output 05/27/17 05/28/17 19:00 07:00 Intake Total 635 ml 75 ml Balance 635 ml 75 ml Intake IV Total 635 ml 75 ml # Bowel Movements 2 Laboratory Tests 05/27/17 20:30: Lactic Acid Level 1.10 Height (Feet): 5 Height (Inches): 6.00 Weight (Pounds): 130 General Appearance: no apparent distress, alert Neurologic: alert, disoriented, depressed affect Kunal Tse M.D. May 28, 2017 15:41
[2017-05-28 16:00] VITALS: BP 130/74
--- NOTE | 2017-05-28 16:19 | Cardiac Electrophysiology PN ---
Assessment/Plan Assessment/Plan 1. Atrial fibrillation with rapid ventricular response. Continue metoprolol 50 mg b.i.d. as well as Eliquis 2.[address] scan showed a suspected subacute infarct in the right posterior temporal and parietal lobe.MRI Brain negative for acute infarct. 2. Hypertension. Continue metoprolol 50 mg b.i.d. and Hydralazine change to 25 NG bid 3. Subacute cerebrovascular accident. Further evaluation by Dr. Gomez. 4. Seizures, on Keppra. 5. Possible rheumatoid arthritis. The patient is on methotrexate and folic acid. 6. History of sepsis, on meropenem. DW RN Subjective Subjective Feeling better. No chest pain or SOB.Remained in atrial fib with rate in 80s. Objective Last 24 Hour Vital Signs Date Time Temp Pulse Resp B/P (MAP) Pulse Ox O2 Delivery O2 Flow Rate FiO2 05/28/17 12:00 91 05/28/17 11:59 124/74 05/28/17 11:49 97.0 95 20 124/74 95 Room Air 05/28/17 10:07 84 123/60 05/28/17 08:01 123/60 05/28/17 08:00 84 05/28/17 08:00 97.2 90 20 126/68 95 Room Air 05/28/17 04:39 85 05/28/17 04:00 97.0 70 16 123/60 98 05/28/17 00:00 97.0 75 18 129/80 100 05/27/17 23:16 116/64 05/27/17 23:07 87 116/64 05/27/17 20:00 98.0 87 16 116/64 98 05/27/17 17:45 117/75 Neck: normal inspection Intake and Output 05/27/17 05/28/17 19:00 07:00 Intake Total 635 ml 75 ml Balance 635 ml 75 ml Intake IV Total 635 ml 75 ml # Bowel Movements 2 Laboratory Tests Test 05/27/17 20:30 Lactic Acid Level 1.10 mmol/L (0.66-2.22) Microbiology Date/Time Source Procedure Growth Status 05/26/17 10:45 Blood Blood Culture - Preliminary NO GROWTH AFTER 24 HOURS Resulted 05/26/17 10:45 Blood Blood Culture - Preliminary NO GROWTH AFTER 24 HOURS Resulted 05/26/17 13:00 Nasal Nares MRSA Culture - Final NO METHICILLIN RESISTANT STAPH AUREUS... Complete 05/26/17 10:45 Urine,Clean Catch Urine Culture - Preliminary Resulted 05/26/17 13:00 Rectum VRE Culture - Final Enterococcus Faecium - Vre Complete Objective HEAD AND NECK: Showed no JVD. She has an NG-tube LUNGS: Decreased breath sounds. CARDIOVASCULAR: Shows irregular S1 and S2 with no gallop. ABDOMEN: Soft. EXTREMITIES: No pitting edema. BRODY AGUILAR May 28, 2017 16:19
[2017-05-28 17:09] LABS: BASOPHILS % (AUTO) 0.5 % (0.0-2.0); EOSINOPHILS % (AUTO) 0.3 % (0.0-3.0); HEMATOCRIT 43.6 % (37.0-47.0); HEMOGLOBIN 13.7 G/DL (12.0-16.0); MEAN CORPUSCULAR VOLUME 86 FL (80-99); MONOCYTES % (AUTO) 6.7 % (1.0-10.0); NEUTROPHILS % (AUTO) 79.6 % (45.0-75.0); PLATELET COUNT 326 K/UL (150-450); RED BLOOD COUNT 5.06 M/UL (4.20-5.40); RED CELL DISTRIBUTION WIDTH 14.6 % (11.6-14.8); WHITE BLOOD COUNT 12.3 K/UL (4.8-10.8)
[2017-05-28] MEDS: HydrALAZINE 25mg tab GT SCH (17:19)
[2017-05-28 17:37] LABS: ANION GAP 9 mmol/L (5-15); BLOOD UREA NITROGEN 24 mg/dL (7-18); CALCIUM 7.6 MG/DL (8.5-10.1); CARBON DIOXIDE 26 MMOL/L (21-32); CHLORIDE 110 MMOL/L (98-107); CREATININE 1.2 MG/DL (0.55-1.30); POTASSIUM 3.5 MMOL/L (3.5-5.1); SODIUM 145 MMOL/L (136-145)
--- NOTE | 2017-05-28 19:31 | Infectious Diseases Prog Note ---
Assessment/Plan Assessment/Plan HPI - patient known to me from recent admission, asked to see patient for sepsis , uti, fevers, leukocytosis - ASSESSMENT AND PLAN: 1. sepsis, uti, leukocytosis, fevers, sz, ams, chest x-ray negative, + ua, blood cultures negative so far - zosyn iv - avoid carbapenems because of possible sz side effect - check uc, bc, labs and chest x-ray, c.diff. ordered - d/w Dr. Altman about abx - neurology w/u 2. hyperlipidemia. 3. Elevated creatinine, anemia 4. Possible chronic renal failure. 5. Cerebrovascular accident. 6. hypertension 7. The patient is on methotrexate 8. atrial fibrillation 9. Depression, anxiety 10. Dementia. 11. Dysphagia. 12. Gastroesophageal reflux disease. 13. Decrease in walking. 14. Weakness. 15. Cerebral infarction. 16. History of urinary tract infection. 17. Dementia per the records. 18. Past medical history noted. 19. No known allergies. 20. Social history negative. 21. Family history is noncontributory. 22. MAR was noted. 23. Case discussed with RN. 24. Case discussed with Dr. Altman 25. vre colonization and isolation 26. allergies - negative Subjective Constitutional: Reports: fever, fatigue, other - + ngt Respiratory: Denies: shortness of breath Cardiovascular: Denies: chest pain Gastrointestinal/Abdominal: Denies: nausea, vomiting, diarrhea Genitourinary: Reports: other - + pruitt Neurologic: Reports: other - + sz on admission Psychiatric: Denies: depression Skin: Denies: rash Hematologic: Denies: bleeding Musculoskeletal: Denies: pain Allergies: Coded Allergies: No Known Allergies (Unverified , 04/30/16) Objective Vital Signs Last 24 Hour Vital Signs Date Time Temp Pulse Resp B/P (MAP) Pulse Ox O2 Delivery O2 Flow Rate FiO2 05/28/17 17:19 130/74 05/28/17 16:00 97.2 77 20 130/74 95 Room Air 05/28/17 16:00 84 05/28/17 12:00 91 05/28/17 11:59 124/74 05/28/17 11:49 97.0 95 20 124/74 95 Room Air 05/28/17 10:07 84 123/60 05/28/17 08:01 123/60 05/28/17 08:00 84 05/28/17 08:00 97.2 90 20 126/68 95 Room Air 05/28/17 04:39 85 05/28/17 04:00 97.0 70 16 123/60 98 05/28/17 00:00 97.0 75 18 129/80 100 05/27/17 23:16 116/64 05/27/17 23:07 87 116/64 05/27/17 20:00 98.0 87 16 116/64 98 Height (Feet): 5 Height (Inches): 6.00 Weight (Pounds): 130 General Appearance: no acute distress HEENT: normocephalic, atraumatic, anicteric, mucous membranes moist, EOMI, pharynx normal, supple, no JVD Respiratory/Chest: lungs clear, normal breath sounds, no respiratory distress, no accessory muscle use Cardiovascular: normal rate, regular rhythm, no gallop/murmur Abdomen: normal bowel sounds, soft, non tender, no organomegaly, non distended Genitourinary: other - + pruitt - urine cloudy Extremities: no cyanosis Skin: no rash 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 Complete 05/26/17 10:45 Urine,Clean Catch Urine Culture - Preliminary Resulted 05/26/17 13:00 Rectum VRE Culture - Final Enterococcus Faecium - Vre Complete Laboratory Tests Test 05/27/17 20:30 05/28/17 16:30 Lactic Acid Level 1.10 mmol/L (0.66-2.22) White Blood Count 12.3 K/UL (4.8-10.8) H Red Blood Count 5.06 M/UL (4.20-5.40) Hemoglobin 13.7 G/DL (12.0-16.0) Hematocrit 43.6 % (37.0-47.0) Mean Corpuscular Volume 86 FL (80-99) Mean Corpuscular Hemoglobin 27.1 PG (27.0-31.0) Mean Corpuscular Hemoglobin Concent 31.4 G/DL (32.0-36.0) L Red Cell Distribution Width 14.6 % (11.6-14.8) Platelet Count 326 K/UL (150-450) Mean Platelet Volume 6.6 FL (6.5-10.1) Neutrophils (%) (Auto) 79.6 % (45.0-75.0) H Lymphocytes (%) (Auto) 13.0 % (20.0-45.0) L Monocytes (%) (Auto) 6.7 % (1.0-10.0) Eosinophils (%) (Auto) 0.3 % (0.0-3.0) Basophils (%) (Auto) 0.5 % (0.0-2.0) Sodium Level 145 MMOL/L (136-145) Potassium Level 3.5 MMOL/L (3.5-5.1) Chloride Level 110 MMOL/L (98-107) H Carbon Dioxide Level 26 MMOL/L (21-32) Anion Gap 9 mmol/L (5-15) Blood Urea Nitrogen 24 mg/dL (7-18) H Creatinine 1.2 MG/DL (0.55-1.30) Estimat Glomerular Filtration Rate mL/min (>60) Glucose Level 60 MG/DL (74-106) L Hemoglobin A1c 5.8 % (4.3-6.0) Calcium Level 7.6 MG/DL (8.5-10.1) L Thyroid Stimulating Hormone (TSH) 2.022 uiU/mL (0.358-3.740) Current Medications Medications (Trade) Dose Ordered Sig/Renea Route PRN Reason Start Time Stop Time Status Last Admin Dose Admin Acetaminophen (Tylenol) 650 mg Q4H PRN ORAL Mild Pain/Temp > 100.5 05/27/17 07:45 06/26/17 07:44 Apixaban (Eliquis) 2.5 mg BID GT 05/27/17 18:00 06/26/17 17:59 05/28/17 17:19 Aspirin (ASA) 81 mg DAILY NG 05/27/17 16:00 06/26/17 15:59 05/28/17 10:08 Atorvastatin Calcium (Lipitor) 80 mg BEDTIME NG 05/27/17 21:00 06/26/17 20:59 05/27/17 23:06 Folic Acid (Folate) 1 mg DAILY NG 05/28/17 09:00 06/27/17 08:59 05/28/17 10:07 Hydralazine HCl (Apresoline) 25 mg TWICE A DAY GT 05/28/17 18:00 06/27/17 17:59 05/28/17 17:19 Levetiracetam (Keppra) 500 mg Q12HR NG 05/27/17 21:00 06/26/17 20:59 05/28/17 10:07 Meropenem 1 gm/ Sodium Chloride 55 ml @ 110 mls/hr Q12H IVPB 05/28/17 11:00 06/02/17 10:59 05/28/17 10:47 Methotrexate (metHOTREXate) 2.5 mg ONCE A WEEK NG 05/28/17 09:00 06/02/17 08:59 05/28/17 10:08 Metoprolol Tartrate (Lopressor) 50 mg Q12HR NG 05/27/17 21:00 06/26/17 20:59 05/28/17 10:07 Mirtazapine (Remeron) 15 mg BEDTIME NG 05/27/17 21:00 06/26/17 20:59 05/27/17 23:06 Paroxetine HCl (Paxil) 10 mg BEDTIME NG 05/28/17 21:00 06/27/17 08:59 Sodium Chloride 1,000 ml @ 75 mls/hr [id number] IV 05/27/17 16:00 06/26/17 15:59 05/28/17 11:30 Sulfasalazine (Azulfidine) 500 mg EVERY 6 HOURS NG 05/27/17 18:00 06/26/17 17:59 05/28/17 17:19 Tamsulosin HCl (Flomax) 0.4 mg DAILY ORAL 05/28/17 10:00 06/27/17 09:59 05/28/17 10:07 Tramadol HCl (Ultram) 50 mg Q4H PRN NG Moderate Pain (Pain Scale 4-6) 05/27/17 15:45 06/03/17 15:44 ALKASSPOOLES,SALAM May 28, 2017 19:31
[2017-05-28 20:00] VITALS: BP 115/75
--- NOTE | 2017-05-28 21:35 | Neurology Progress Note ---
Interim History Interim History Interim History Ms. Marquez feels a little better. She is less dysarthric but is still difficult to understand. She has been seizure-free. She continues to be cognitively impoverished. She continues to be motorically challenged. Review of Systems Neuro Review of Systems Unable to obtain. Objective Physical Exam Last Vital Signs Date Time Temp Pulse Resp B/P (MAP) Pulse Ox O2 Delivery O2 Flow Rate FiO2 05/28/17 17:19 130/74 05/28/17 16:00 97.2 77 20 95 Room Air Laboratory Tests Test 05/28/17 16:30 White Blood Count 12.3 K/UL (4.8-10.8) H Red Blood Count 5.06 M/UL (4.20-5.40) Hemoglobin 13.7 G/DL (12.0-16.0) Hematocrit 43.6 % (37.0-47.0) Mean Corpuscular Volume 86 FL (80-99) Mean Corpuscular Hemoglobin 27.1 PG (27.0-31.0) Mean Corpuscular Hemoglobin Concent 31.4 G/DL (32.0-36.0) L Red Cell Distribution Width 14.6 % (11.6-14.8) Platelet Count 326 K/UL (150-450) Mean Platelet Volume 6.6 FL (6.5-10.1) Neutrophils (%) (Auto) 79.6 % (45.0-75.0) H Lymphocytes (%) (Auto) 13.0 % (20.0-45.0) L Monocytes (%) (Auto) 6.7 % (1.0-10.0) Eosinophils (%) (Auto) 0.3 % (0.0-3.0) Basophils (%) (Auto) 0.5 % (0.0-2.0) Sodium Level 145 MMOL/L (136-145) Potassium Level 3.5 MMOL/L (3.5-5.1) Chloride Level 110 MMOL/L (98-107) H Carbon Dioxide Level 26 MMOL/L (21-32) Anion Gap 9 mmol/L (5-15) Blood Urea Nitrogen 24 mg/dL (7-18) H Creatinine 1.2 MG/DL (0.55-1.30) Estimat Glomerular Filtration Rate mL/min (>60) Glucose Level 60 MG/DL (74-106) L Hemoglobin A1c 5.8 % (4.3-6.0) Calcium Level 7.6 MG/DL (8.5-10.1) L Thyroid Stimulating Hormone (TSH) 2.022 uiU/mL (0.358-3.740) Neurologic Exam Objective PHYSICAL EXAMINATION: GENERAL: She is a well-developed, well-nourished, pleasant, black lady, lying in bed, in no acute distress. HEAD: Normocephalic and atraumatic. NECK: No neck rigidity was observed. EENT: Benign. NEUROLOGIC EXAMINATION: MENTAL STATUS EXAMINATION: She was awake and alert. She was oriented to self only. She had no idea where she was or what the date was. She was able to repeat 3 words, but was unable to remember any of them in 1 minute and 3 minutes. Further mental status testing was quite impossible because of significant dysarthria and possibly an aphasia. SPEECH: She had severe dysarthria. LANGUAGE: She had problems with comprehension and expression of language. CRANIAL NERVE EXAMINATION: II: She had a possible right visual field deficit to threat. She was unable to cooperate for confrontation testing. III, IV & : External ocular movements are full and the pupils 3 mm in diameter, equal, round, regular, and reactive sluggishly to light. V: She had normal facial sensations and the temporales, masseters, and pterygoids functioned normally. VII: She had a right greater than left seventh central facial paresis. VIII: She seemed to be able to hear and had no nystagmus. IX: The palate moved symmetrically on phonation. X: She had no hoarseness of voice. XI: The sternocleidomastoids and trapezii functioned normally. XII: The tongue was in the midline without any fasciculations or atrophy. MOTOR SYSTEM: The tone was increased in all four extremities with a mild degree of spasticity. Examination of muscle mass revealed generalized muscle wasting. Examination of power was exceedingly difficult to perform because of varying degrees of cooperation. 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 SENSORY EXAMINATION: She responded appropriately to deep pain. She was unable to cooperate for other sensory modalities. REFLEXES: Trace+ and bilaterally symmetrical at the biceps, triceps, brachioradialis, and knees, 0 at both ankles. The plantar responses were extensor bilaterally. COORDINATION, STANCE & GAIT: Could not be tested. Impression/Recommendations Diagnostic Impression 1. Ms. Marcelle Marquez is a 71-year-old, right-handed, black lady, who does have a past history of depression, hypertension, dyslipidemia, cerebrovascular disease with multiple strokes, and chronic anticoagulation for atrial fibrillation, who was hospitalized after she had two generalized tonic-clonic seizures [facility]. On being evaluated in the emergency room, she was found to have a significant urinary tract infection. 2. She is less encephalopathic today. She continues to be cognitively impoverished. She continues to be motorically challenged. She has been seizure- free. 3. On neurological examination, at this time, she does demonstrate significant problems with orientation, recent and remote memory, higher cognitive function, and language. 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 4. The CT scan of the brain reveals chronic infarcts involving the right temporal lobe, left occipital lobe, left thalamus, and basal ganglia. 5. Her laboratory data revealed that the lactic acid was elevated to 6.1. Her BUN was elevated to 26 with a creatinine of 1.4. Her proBNP was elevated to 12, 677. She was hypoalbuminemic with albumin of 2.3 and her urinalysis revealed 3 + leukocyte esterase, 30 to 40 red blood cells, and 20 to 30 white blood cells per high-power field. 6. The MRI of the brain done on 05/28/17 revealed no acute pathology. Multiple old infarcts were seen. 7. 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 Recommendations 1. Continue present management. 2. Await EEG to evaluate the patient for the type of seizure disorder. 3. Continue Keppra 500 mg q.12 h. for seizure prophylaxis. 4. The patient's urinary tract infection should be treated aggressively. 5. Observe closely. Goran Gomez M.D., M.S.[facility].H. GORAN GOMEZ May 28, 2017 21:35
[2017-05-28] MEDS: Piperacillin/Tazobactam 3.375 GM in D5W 55 ML IVPB SCH (22:00)
[2017-05-28] MEDS: Atorvastatin 80mg tab NG SCH (23:37)
[2017-05-28] MEDS: PARoxetine 20mg tab NG SCH (23:39)
[2017-05-29] VITALS: BP 101/70
--- NOTE | 2017-05-29 00:21 | General Progress Note ---
Assessment/Plan Problem List: (1) CVA (cerebral vascular accident) ICD Codes: I63.9 - Cerebral infarction, unspecified SNOMED: 223423097 (2) Toxic metabolic encephalopathy ICD Codes: G92 - Toxic encephalopathy SNOMED: 923485768 (3) Acute kidney injury ICD Codes: N17.9 - Acute kidney failure, unspecified SNOMED: 95707123 (4) Lactic acid acidosis ICD Codes: E87.2 - Acidosis SNOMED: 72092541 (5) Atrial fibrillation with RVR ICD Codes: I48.91 - Unspecified atrial fibrillation SNOMED: 195530094071594 (6) Seizure ICD Codes: R56.9 - Unspecified convulsions SNOMED: 19473121 (7) Dementia ICD Codes: F03.90 - Unspecified dementia without behavioral disturbance SNOMED: 28394093 (8) Depression ICD Codes: F32.9 - Major depressive disorder, single episode, unspecified SNOMED: 32792095 (9) UTI (urinary tract infection) ICD Codes: N39.0 - Urinary tract infection, site not specified SNOMED: 43176357 (10) HTN (hypertension) ICD Codes: I10 - Essential (primary) hypertension SNOMED: 62356829 Status: stable Assessment/Plan Monitor on tele Neurology and cardiology consulted F/u MRI brain --> multiple old infarcts F/u EEG Keppra 500mg BID Neuro checks Cont ASA, statin F/u TTE --> EF 55% Cont MTP and Eliquis NPO per swallow eval NGT placed for feeds and meds (son agreed). If no improvement, will need to consider G tube ID consulted Change to zosyn per ID F/u cultures PT/OT/ST eval DVT Prophylaxis: SCD, Eliquis Code Status: Full Hospital Classification Declaration: Based on this initial evaluation, and depending on the patient's clinical course, I anticipate that this patient will require hospitalization for 2-3 days for CVA, seizure, Afib with RVR and close respiratory/hemodynamic monitoring. Disposition: Once the patient is stable to leave the hospital, I anticipate the patient will likely be discharged to the following environment: back to SNF Discussed with patient/family, nursing staff, SW/CM, neuro, cardiology, ID regarding clinical status, treatment course, and disposition planning. Time of note may not reflect time of encounter. Subjective Date patient seen: May 28, 2017 Time patient seen: 15:00 ROS Limited/Unobtainable: Yes Allergies: Coded Allergies: No Known Allergies (Unverified , 04/30/16) Subjective No acute o/n events Pt remains seizure free. MRI farideh showed old infarcts. HR improved. Cont on tube feeds Pt less dysarthric. Cont to have weakness ROS limited 2/2 AMS Objective Last 24 Hour Vital Signs Date Time Temp Pulse Resp B/P (MAP) Pulse Ox O2 Delivery O2 Flow Rate FiO2 05/28/17 23:38 87 115/75 05/28/17 20:00 97.5 87 20 115/75 96 05/28/17 17:19 130/74 05/28/17 16:00 97.2 77 20 130/74 95 Room Air 05/28/17 16:00 84 05/28/17 12:00 91 05/28/17 11:59 124/74 05/28/17 11:49 97.0 95 20 124/74 95 Room Air 05/28/17 10:07 84 123/60 05/28/17 08:01 123/60 05/28/17 08:00 84 05/28/17 08:00 97.2 90 20 126/68 95 Room Air 05/28/17 04:39 85 05/28/17 04:00 97.0 70 16 123/60 98 Intake and Output 05/28/17 05/29/17 19:00 07:00 Intake Total 720 ml Balance 720 ml Intake Free Water 90 ml IV Total 580 ml Tube Feeding 50 ml # Voids 1 # Bowel Movements 2 Laboratory Tests 05/28/17 16:30: White Blood Count 12.3H, Red Blood Count 5.06, Hemoglobin 13.7, Hematocrit 43.6 , Mean Corpuscular Volume 86, Mean Corpuscular Hemoglobin 27.1, Mean Corpuscular Hemoglobin Concent 31.4L, Red Cell Distribution Width 14.6, Platelet Count 326, Mean Platelet Volume 6.6, Neutrophils (%) (Auto) 79.6H, Lymphocytes (%) (Auto) 13.0L, Monocytes (%) (Auto) 6.7, Eosinophils (%) (Auto) 0.3, Basophils (%) (Auto) 0.5, Sodium Level 145, Potassium Level 3.5, Chloride Level 110H, Carbon Dioxide Level 26, Anion Gap 9, Blood Urea Nitrogen 24H, Creatinine 1.2, Estimat Glomerular Filtration Rate , Glucose Level 60L, Hemoglobin A1c 5.8, Calcium Level 7.6L, Thyroid Stimulating Hormone (TSH) 2.022 Height (Feet): 5 Height (Inches): 6.00 Weight (Pounds): 130 Objective General: alert, cooperative, no distress, appears stated age Head: normocephalic, without obvious abnormality, atraumatic Eyes: conjunctivae/corneas clear. PERRL, EOM's intact Throat: lips, mucosa, and tongue normal. MMM Neck: supple, symmetrical, trachea midline, and no JVD Lungs: clear to auscultation bilaterally Heart: regular rate and rhythm, S1, S2 normal, no murmur, click, rub or gallop Abdomen: soft, non-tender, non-distended, bowel sounds normal; no masses or organomegaly Extremities: extremities normal, atraumatic, no cyanosis or edema Pulses: 2+ and symmetric Skin: skin color, texture, turgor normal; no rashes or lesions Neurologic: grossly normal, no focal deficits except for dysarthria, quadriparesis Agapito Butler M.D. May 29, 2017 00:21
[2017-05-29 04:00] VITALS: BP 107/67
[2017-05-29] MEDS: Piperacillin/Tazobactam 3.375 GM in D5W 55 ML IVPB SCH ×2 (06:33→13:11)
[2017-05-29] MEDS: SulfASALAZine 500MG tab NG SCH ×3 (06:33→17:14)
[2017-05-29 08:00] VITALS: BP 107/65
[2017-05-29 09:42] LABS: BASOPHILS % (AUTO) 0.3 % (0.0-2.0); EOSINOPHILS % (AUTO) 0.7 % (0.0-3.0); HEMATOCRIT 38.5 % (37.0-47.0); HEMOGLOBIN 12.3 G/DL (12.0-16.0); LYMPHOCYTES % (AUTO) 17.2 % (20.0-45.0); MEAN CORPUSCULAR VOLUME 86 FL (80-99); MONOCYTES % (AUTO) 6.1 % (1.0-10.0); NEUTROPHILS % (AUTO) 75.7 % (45.0-75.0); PLATELET COUNT 314 K/UL (150-450); RED BLOOD COUNT 4.47 M/UL (4.20-5.40); RED CELL DISTRIBUTION WIDTH 14.6 % (11.6-14.8); WHITE BLOOD COUNT 9.3 K/UL (4.8-10.8)
[2017-05-29] MEDS: Metoprolol Tartrate 50mg tab NG SCH ×2 (10:11→20:42)
[2017-05-29] MEDS: Eliquis 2.5mg tablet GT SCH ×2 (10:12→17:14)
[2017-05-29] MEDS: metroNIDAZOLE 500mg tab NG SCH ×3 (10:12→22:00)
[2017-05-29] MEDS: Aspirin Baby 81mg NG SCH (10:12)
[2017-05-29] MEDS: HydrALAZINE 25mg tab GT SCH ×2 (10:12→17:14)
[2017-05-29] MEDS: Tamsulosin 0.4mg cap ORAL SCH (10:13)
[2017-05-29 10:44] LABS: ANION GAP 10 mmol/L (5-15); BLOOD UREA NITROGEN 22 mg/dL (7-18); CARBON DIOXIDE 22 MMOL/L (21-32); CHLORIDE 114 MMOL/L (98-107); CREATININE 1.1 MG/DL (0.55-1.30); POTASSIUM 3.2 MMOL/L (3.5-5.1); SODIUM 146 MMOL/L (136-145)
--- NOTE | 2017-05-29 11:57 | Diagnostic Imaging Report ---
Indication: Dyspnea Comparison: 05/26/2017 A single view chest radiograph was obtained. Findings: The heart is enlarged. Lungs are clear. Calcified mitral anulus demonstrated. NG tube is present in good position. Bones are osteopenic. IMPRESSION: No acute findings
[2017-05-29 12:00] VITALS: BP 95/52
--- NOTE | 2017-05-29 14:44 | Neurology Progress Note ---
Interim History Interim History Interim History Ms. Marquez feels better. She is less dysarthric but is still difficult to understand. She has been seizure-free. She continues to be cognitively impoverished. She continues to be motorically challenged. She denies any new neurologic symptoms Review of Systems Neuro Review of Systems Benign. Objective Physical Exam Last Vital Signs Date Time Temp Pulse Resp B/P (MAP) Pulse Ox O2 Delivery O2 Flow Rate FiO2 05/29/17 12:00 97.8 77 19 95/52 93 Room Air Laboratory Tests Test 05/28/17 16:30 05/29/17 09:00 White Blood Count 12.3 K/UL (4.8-10.8) H 9.3 K/UL (4.8-10.8) Red Blood Count 5.06 M/UL (4.20-5.40) 4.47 M/UL (4.20-5.40) Hemoglobin 13.7 G/DL (12.0-16.0) 12.3 G/DL (12.0-16.0) Hematocrit 43.6 % (37.0-47.0) 38.5 % (37.0-47.0) Mean Corpuscular Volume 86 FL (80-99) 86 FL (80-99) Mean Corpuscular Hemoglobin 27.1 PG (27.0-31.0) 27.5 PG (27.0-31.0) Mean Corpuscular Hemoglobin Concent 31.4 G/DL (32.0-36.0) L 31.9 G/DL (32.0-36.0) L Red Cell Distribution Width 14.6 % (11.6-14.8) 14.6 % (11.6-14.8) Platelet Count 326 K/UL (150-450) 314 K/UL (150-450) Mean Platelet Volume 6.6 FL (6.5-10.1) 7.4 FL (6.5-10.1) Neutrophils (%) (Auto) 79.6 % (45.0-75.0) H 75.7 % (45.0-75.0) H Lymphocytes (%) (Auto) 13.0 % (20.0-45.0) L 17.2 % (20.0-45.0) L Monocytes (%) (Auto) 6.7 % (1.0-10.0) 6.1 % (1.0-10.0) Eosinophils (%) (Auto) 0.3 % (0.0-3.0) 0.7 % (0.0-3.0) Basophils (%) (Auto) 0.5 % (0.0-2.0) 0.3 % (0.0-2.0) Sodium Level 145 MMOL/L (136-145) 146 MMOL/L (136-145) H Potassium Level 3.5 MMOL/L (3.5-5.1) 3.2 MMOL/L (3.5-5.1) L Chloride Level 110 MMOL/L (98-107) H 114 MMOL/L (98-107) H Carbon Dioxide Level 26 MMOL/L (21-32) 22 MMOL/L (21-32) Anion Gap 9 mmol/L (5-15) 10 mmol/L (5-15) Blood Urea Nitrogen 24 mg/dL (7-18) H 22 mg/dL (7-18) H Creatinine 1.2 MG/DL (0.55-1.30) 1.1 MG/DL (0.55-1.30) Estimat Glomerular Filtration Rate mL/min (>60) mL/min (>60) Glucose Level 60 MG/DL (74-106) L 97 MG/DL (74-106) Hemoglobin A1c 5.8 % (4.3-6.0) Calcium Level 7.6 MG/DL (8.5-10.1) L 7.0 MG/DL (8.5-10.1) L Thyroid Stimulating Hormone (TSH) 2.022 uiU/mL (0.358-3.740) Neurologic Exam Objective PHYSICAL EXAMINATION: GENERAL: She is a well-developed, well-nourished, pleasant, black lady, lying in bed, in no acute distress. HEAD: Normocephalic and atraumatic. NECK: No neck rigidity was observed. EENT: Benign. NEUROLOGIC EXAMINATION: MENTAL STATUS EXAMINATION: She was awake and alert. She was oriented to self and hospital only. She was able to repeat 3 words, but was unable to remember any of them in 1 minute and 3 minutes. She was able to remember Trump when the first name was given to her. Further mental status testing was quite impossible because of significant dysarthria and possibly an aphasia. SPEECH: She had moderately severe dysarthria. LANGUAGE: She had problems with comprehension and expression of language. CRANIAL NERVE EXAMINATION: II: She had a possible right visual field deficit to threat. She was unable to cooperate for confrontation testing. III, IV & : External ocular movements are full and the pupils 3 mm in diameter, equal, round, regular, and reactive sluggishly to light. V: She had normal facial sensations and the temporales, masseters, and pterygoids functioned normally. VII: She had a right greater than left seventh central facial paresis. VIII: She seemed to be able to hear and had no nystagmus. IX: The palate moved symmetrically on phonation. X: She had no hoarseness of voice. XI: The sternocleidomastoids and trapezii functioned normally. XII: The tongue was in the midline without any fasciculations or atrophy. MOTOR SYSTEM: The tone was increased in all four extremities with a mild degree of spasticity. Examination of muscle mass revealed generalized muscle wasting. Examination of power was exceedingly difficult to perform because of varying degrees of cooperation. 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 SENSORY EXAMINATION: She responded appropriately to deep pain. She was unable to cooperate for other sensory modalities. REFLEXES: Trace+ and bilaterally symmetrical at the biceps, triceps, brachioradialis, and knees, 0 at both ankles. The plantar responses were extensor bilaterally. COORDINATION, STANCE & GAIT: Could not be tested. Impression/Recommendations Diagnostic Impression 1. Ms. Marcelle Marquez is a 71-year-old, right-handed, black lady, who does have a past history of depression, hypertension, dyslipidemia, cerebrovascular disease with multiple strokes, and chronic anticoagulation for atrial fibrillation, who was hospitalized after she had two generalized tonic-clonic seizures in her long term. On being evaluated in the emergency room, she was found to have a significant urinary tract infection. 2. She is less encephalopathic today. She continues to be cognitively impoverished. She continues to be motorically challenged. She has been seizure- free. 3. On neurological examination, at this time, she does demonstrate problems with orientation, recent and remote memory, higher cognitive function, and language. 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 4. The CT scan of the brain reveals chronic infarcts involving the right temporal lobe, left occipital lobe, left thalamus, and basal ganglia. 5. Her laboratory data revealed that the lactic acid was elevated to 6.1. Her BUN was elevated to 26 with a creatinine of 1.4. Her proBNP was elevated to 12, 677. She was hypoalbuminemic with albumin of 2.3 and her urinalysis revealed 3 + leukocyte esterase, 30 to 40 red blood cells, and 20 to 30 white blood cells per high-power field. 6. The MRI of the brain done on 05/28/17 revealed no acute pathology. Multiple old infarcts were seen. 7. The EEG revealed a moderate encephalopathy and a C4 (Right Central) epileptogenic focus. 8. 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 Recommendations 1. Continue present management. 2. Increase Keppra to 750 mg q.12 h. for seizure prophylaxis. 3. The patient's urinary tract infection should be treated aggressively. 4. Observe closely. Goran Gomez M.D., M.S.P.GORAN LERMA May 29, 2017 14:44
--- NOTE | 2017-05-29 15:30 | Electroencephalogram ---
DATE OF PROCEDURE: 05/28/2017 EEG REPORT REQUESTING PHYSICIAN: Agapito Butler M.D. HISTORY: This EEG was performed on a 71-year-old lady with history of multiple medical problems including hypertension, cerebrovascular disease, and cognitive dysfunction, who was hospitalized for two generalized seizures. The purpose of this EEG was to evaluate the patient for the degree and type of cerebral dysfunction and to exclude ongoing ictal or interictal phenomena. TECHNICAL NOTE: This EEG was performed on 32 channel [employer] Unit with electrodes placed on scalp according to the International 10-20 system. [id number] and cvejx-[id number] montages were used. The EEG was technically satisfactory and was performed in the awake and drowsy states. OBSERVATIONS: In the best awake state, the background activity consisted of 5-6 Hz theta activity with a moderate amount of EMG artifact. Drowsiness was characterized by slowing of the background in the 4-5 Hz theta range with intermixed delta frequencies. During drowsiness, C4 sharp discharges were seen. Photic stimulation was performed at various different frequencies and produced no abnormalities. IMPRESSION: This is an abnormal electroencephalogram characterized by. 1. Slowing of the background in the 5-6 Hz theta range in the best awake state. 2. The presence of C4 sharp discharges seen during drowsiness. COMMENT: This study is consistent with: 1. An encephalopathy of a moderate degree. 2. A right central epileptogenic focus. Clinical correlation is recommended. Aleksander Gomez M.D., M.S.P.H. DR: AUDRA JOB#: [id number] [facility]OSPITALChris
[2017-05-29 16:00] VITALS: BP 100/80
--- NOTE | 2017-05-29 17:34 | Cardiac Electrophysiology PN ---
Assessment/Plan Assessment/Plan 1. Atrial fibrillation with rapid ventricular response. Continue metoprolol 50 mg b.i.d.and Eliquis 2.[address] scan showed a suspected subacute infarct in the right posterior temporal and parietal lobe.MRI Brain negative for acute infarct. 2. Hypertension. Continue metoprolol 50 mg b.i.d. and Hydralazine 25 NG bid 3. Subacute cerebrovascular accident. Further evaluation by Dr. Gomez. 4. Seizures, on Keppra. 5. Possible rheumatoid arthritis. The patient is on methotrexate and folic acid. 6. History of sepsis, on meropenem. 7. Dysphagia. NG tube in. Recommended PEG by Speech DW RN Subjective Subjective No chest pain or SOB.Remained in atrial fib with rate in 80s. NG tube feeding going on. Objective Last 24 Hour Vital Signs Date Time Temp Pulse Resp B/P (MAP) Pulse Ox O2 Delivery O2 Flow Rate FiO2 05/29/17 17:14 100/80 05/29/17 16:00 97.4 81 18 100/80 94 Room Air 05/29/17 12:00 97.8 77 19 95/52 93 Room Air 05/29/17 12:00 76 05/29/17 10:12 107/65 05/29/17 10:11 92 107/65 05/29/17 08:00 82 05/29/17 08:00 97.8 92 19 107/65 94 Room Air 05/29/17 04:00 97.3 87 20 107/67 96 05/29/17 04:00 76 05/29/17 00:00 97.2 102 21 101/70 96 05/29/17 00:00 86 05/28/17 23:38 87 115/75 05/28/17 20:00 91 05/28/17 20:00 97.5 87 20 115/75 96 Intake and Output 05/28/17 05/29/17 19:00 07:00 Intake Total 720 ml Output Total 80 ml Balance 720 ml -80 ml Intake Free Water 90 ml IV Total 580 ml Tube Feeding 50 ml Output Urine Total 80 ml # Voids 1 # Bowel Movements 2 1 Laboratory Tests Test 05/29/17 09:00 White Blood Count 9.3 K/UL (4.8-10.8) Red Blood Count 4.47 M/UL (4.20-5.40) Hemoglobin 12.3 G/DL (12.0-16.0) Hematocrit 38.5 % (37.0-47.0) Mean Corpuscular Volume 86 FL (80-99) Mean Corpuscular Hemoglobin 27.5 PG (27.0-31.0) Mean Corpuscular Hemoglobin Concent 31.9 G/DL (32.0-36.0) L Red Cell Distribution Width 14.6 % (11.6-14.8) Platelet Count 314 K/UL (150-450) Mean Platelet Volume 7.4 FL (6.5-10.1) Neutrophils (%) (Auto) 75.7 % (45.0-75.0) H Lymphocytes (%) (Auto) 17.2 % (20.0-45.0) L Monocytes (%) (Auto) 6.1 % (1.0-10.0) Eosinophils (%) (Auto) 0.7 % (0.0-3.0) Basophils (%) (Auto) 0.3 % (0.0-2.0) Sodium Level 146 MMOL/L (136-145) H Potassium Level 3.2 MMOL/L (3.5-5.1) L Chloride Level 114 MMOL/L (98-107) H Carbon Dioxide Level 22 MMOL/L (21-32) Anion Gap 10 mmol/L (5-15) Blood Urea Nitrogen 22 mg/dL (7-18) H Creatinine 1.1 MG/DL (0.55-1.30) Estimat Glomerular Filtration Rate mL/min (>60) Glucose Level 97 MG/DL (74-106) Calcium Level 7.0 MG/DL (8.5-10.1) L Microbiology Date/Time Source Procedure Growth Status 05/28/17 11:40 Stool Clostridium difficile Toxin Assay - Final Complete Objective HEAD AND NECK: Showed no JVD. NG-tube LUNGS: Decreased breath sounds. CARDIOVASCULAR: Shows irregular S1 and S2 with no gallop. ABDOMEN: Soft. EXTREMITIES: No pitting edema. BRODY AGUILAR May 29, 2017 17:34
[2017-05-29 20:00] VITALS: BP 102/54
[2017-05-29] MEDS: Atorvastatin 80mg tab NG SCH (20:42)
[2017-05-29] MEDS: PARoxetine 20mg tab NG SCH (20:43)
[2017-05-29] MEDS ORDERED: Potassium Chloride 40 MEQ/NS 550ML IVPB ONE ×2 (21:30)
[2017-05-29] MEDS: Piperacillin/Tazobactam 3.375 GM in NS 110 ML IVPB SCH (22:32)
--- NOTE | 2017-05-29 23:03 | General Progress Note ---
Assessment/Plan Assessment/Plan encephalopathy mdd anxiety -decrease paxil and changed it to hs -cont remeron Subjective Allergies: Coded Allergies: No Known Allergies (Unverified , 04/30/16) Subjective the pt is more alert min verbal participated in pt. the pt meds are changed. no agitation Objective Last 24 Hour Vital Signs Date Time Temp Pulse Resp B/P (MAP) Pulse Ox O2 Delivery O2 Flow Rate FiO2 05/29/17 20:00 97.2 77 16 102/54 97 05/29/17 17:14 100/80 05/29/17 16:00 97.4 81 18 100/80 94 Room Air 05/29/17 16:00 76 05/29/17 12:00 97.8 77 19 95/52 93 Room Air 05/29/17 12:00 76 05/29/17 10:12 107/65 05/29/17 10:11 92 107/65 05/29/17 08:00 82 05/29/17 08:00 97.8 92 19 107/65 94 Room Air 05/29/17 04:00 97.3 87 20 107/67 96 05/29/17 04:00 76 05/29/17 00:00 97.2 102 21 101/70 96 05/29/17 00:00 86 05/28/17 23:38 87 115/75 Intake and Output 05/28/17 05/29/17 19:00 07:00 Intake Total 720 ml Output Total 80 ml Balance 720 ml -80 ml Intake Free Water 90 ml IV Total 580 ml Tube Feeding 50 ml Output Urine Total 80 ml # Voids 1 # Bowel Movements 2 1 Laboratory Tests 05/29/17 09:00: White Blood Count 9.3, Red Blood Count 4.47, Hemoglobin 12.3, Hematocrit 38.5, Mean Corpuscular Volume 86, Mean Corpuscular Hemoglobin 27.5, Mean Corpuscular Hemoglobin Concent 31.9L, Red Cell Distribution Width 14.6, Platelet Count 314, Mean Platelet Volume 7.4, Neutrophils (%) (Auto) 75.7H, Lymphocytes (%) (Auto) 17.2L, Monocytes (%) (Auto) 6.1, Eosinophils (%) (Auto) 0.7, Basophils (%) (Auto ) 0.3, Sodium Level 146H, Potassium Level 3.2L, Chloride Level 114H, Carbon Dioxide Level 22, Anion Gap 10, Blood Urea Nitrogen 22H, Creatinine 1.1, Estimat Glomerular Filtration Rate , Glucose Level 97, Calcium Level 7.0L Height (Feet): 5 Height (Inches): 6.00 Weight (Pounds): 130 Kunal Tse M.D. May 29, 2017 23:03
[2017-05-30] VITALS: BP 139/77
[2017-05-30 04:00] VITALS: BP 121/75
--- NOTE | 2017-05-30 04:45 | Consultation ---
DATE OF CONSULTATION: 05/29/2017 CONSULTING PHYSICIAN: Jaret Soares M.D. REFERRING PHYSICIAN: Agapito Butler M.D. REASON FOR CONSULTATION: Evaluation of difficult catheterization. HISTORY OF PRESENT ILLNESS: This is a 71-year-old female. She was admitted to the hospital because of seizures. Apparently, she had an indwelling Prather from the long-term. This was removed at the hospital, then there was some difficulty with reinsertion and the nursing staff apparently were unable to place the catheter, had minimal and some hematuria noted. Urology evaluation has been requested. I am not able to get any history from the patient. Most of the history was obtained from the chart. PAST MEDICAL HISTORY: Significant for hypertension, cerebrovascular accident, depression, atrial fibrillation, history of urinary tract infection, and dementia. PAST SURGICAL HISTORY: Unknown. CURRENT MEDICATIONS: In the hospital, the patient is on Zosyn, potassium, and Keppra. She is on Flagyl, Paxil, hydralazine, Flomax, folate, Lipitor, Lopressor, Remeron, Eliquis, sulfasalazine, aspirin, Ultram, and Tylenol. ALLERGIES: No known drug allergies. SOCIAL HISTORY: She lives in a long-term. FAMILY HISTORY: Unable to obtain. REVIEW OF SYSTEMS: Unable to obtain. PHYSICAL EXAMINATION: GENERAL: This is an elderly female, confused. VITAL SIGNS: Temperature is 97.2, blood pressure 102/54, pulse 77, and respirations 16. HEENT: Normocephalic. NECK: Supple. ABDOMEN: Soft. BACK: No CVA tenderness. GENITOURINARY: Reveals a Prather in place, which is draining with a reddish what appears to be urine. EXTREMITIES: Slightly contracted. LABORATORY DATA: Her BUN is 22, creatinine is 1.1, and potassium 3.2. White blood cell count is 9.3 and hemoglobin 12.3. Her INR is 1.1. UA showed 3+ protein, 30 to 40 RBCs, 20 to 30 WBCs, and yeast. DIAGNOSTIC IMAGING STUDIES: She had an abdominal x-ray, which showed good position of nasogastric tube. At the bedside, I inspected the existing Prather catheter, which did not appear to be in the bladder and I believe the balloon was inflated in the vagina. Prather catheter. I identified the urethral meatus, which appeared to be slightly stenotic. This was gently dilated and I was able to pass a 16-Italian Prather catheter into the bladder in the correct position and a return of dark michelle urine about maybe 200 to 220 mL. I did personally hand irrigated the Prather and it appeared to be in good position. IMPRESSION: 1. Urinary retention. 2. Hematuria. 3. Proteinuria. 4. Urinary tract infection. 5. Neurogenic bladder. 6. Urethral stricture. PLAN AND DISCUSSION: Again as noted above, I was able to place a Prather catheter in the correct position in the bladder and there was not significant residual again about 200 to 220 mL of michelle urine irrigated with minimal clots. The patient will be monitored clinically. If she has worsening hematuria, we may have to stop her anticoagulation. hand irrigate the Prather as needed and to obtain renal imaging study and cystoscopy in the future. Thank you, Dr. Butler, for asking me to see this patient in consultation. Jaret Soares M.D. DR: ROXANNE JOB#: [id number] CC:
--- NOTE | 2017-05-30 05:08 | General Progress Note ---
Assessment/Plan Problem List: (1) CVA (cerebral vascular accident) ICD Codes: I63.9 - Cerebral infarction, unspecified SNOMED: 213928113 (2) Toxic metabolic encephalopathy ICD Codes: G92 - Toxic encephalopathy SNOMED: 344907475 (3) Acute kidney injury ICD Codes: N17.9 - Acute kidney failure, unspecified SNOMED: 39922003 (4) Lactic acid acidosis ICD Codes: E87.2 - Acidosis SNOMED: 45159286 (5) Atrial fibrillation with RVR ICD Codes: I48.91 - Unspecified atrial fibrillation SNOMED: 359614510395569 (6) Seizure ICD Codes: R56.9 - Unspecified convulsions SNOMED: 33130846 (7) Dementia ICD Codes: F03.90 - Unspecified dementia without behavioral disturbance SNOMED: 35547380 (8) Depression ICD Codes: F32.9 - Major depressive disorder, single episode, unspecified SNOMED: 79017936 (9) UTI (urinary tract infection) ICD Codes: N39.0 - Urinary tract infection, site not specified SNOMED: 24934980 (10) HTN (hypertension) ICD Codes: I10 - Essential (primary) hypertension SNOMED: 33777568 Status: stable Assessment/Plan Neurology and cardiology consulted F/u MRI brain --> multiple old infarcts F/u EEG --> shows an epileptic fose Increase keppra to 750mg BID Neuro checks Cont ASA, statin F/u TTE --> EF 55% Cont MTP and Eliquis NPO per swallow eval NGT placed for feeds and meds (son agreed). D/w son who would like to proceed w / G tube. GI consulted ID consulted Cont zosyn per ID F/u cultures PT/OT/ST eval DVT Prophylaxis: SCD, Eliquis Code Status: Full Hospital Classification Declaration: Based on this initial evaluation, and depending on the patient's clinical course, I anticipate that this patient will require hospitalization for 1-2 days for CVA, seizure, Afib with RVR and close respiratory/hemodynamic monitoring. Disposition: Once the patient is stable to leave the hospital, I anticipate the patient will likely be discharged to the following environment: back to SNF Discussed with patient/family, nursing staff, SW/CM, neuro, cardiology, ID regarding clinical status, treatment course, and disposition planning. Time of note may not reflect time of encounter. Subjective Date patient seen: May 29, 2017 Time patient seen: 14:00 ROS Limited/Unobtainable: Yes Allergies: Coded Allergies: No Known Allergies (Unverified , 04/30/16) Subjective No acute o/n events Pt remains seizure free. MRI afrideh showed old infarcts. HR improved. EEG showed epileptic focus. Keppra dose increased. Cont on tube feeds Pt less dysarthric. Cont to have weakness D/w pt's son who would like to proceed w/ G tube ROS limited 2/2 AMS, lethargic Objective Last 24 Hour Vital Signs Date Time Temp Pulse Resp B/P (MAP) Pulse Ox O2 Delivery O2 Flow Rate FiO2 05/30/17 04:00 97.0 78 14 121/75 90 05/30/17 00:00 72 05/30/17 00:00 97.3 97 18 139/77 92 05/29/17 20:00 97.2 77 16 102/54 97 05/29/17 20:00 86 05/29/17 17:14 100/80 05/29/17 16:00 97.4 81 18 100/80 94 Room Air 05/29/17 16:00 76 05/29/17 12:00 97.8 77 19 95/52 93 Room Air 05/29/17 12:00 76 05/29/17 10:12 107/65 05/29/17 10:11 92 107/65 05/29/17 08:00 82 05/29/17 08:00 97.8 92 19 107/65 94 Room Air Intake and Output 05/29/17 05/30/17 19:00 07:00 Output Total 300 ml Balance -300 ml Output Urine Total 300 ml Laboratory Tests 05/29/17 09:00: White Blood Count 9.3, Red Blood Count 4.47, Hemoglobin 12.3, Hematocrit 38.5, Mean Corpuscular Volume 86, Mean Corpuscular Hemoglobin 27.5, Mean Corpuscular Hemoglobin Concent 31.9L, Red Cell Distribution Width 14.6, Platelet Count 314, Mean Platelet Volume 7.4, Neutrophils (%) (Auto) 75.7H, Lymphocytes (%) (Auto) 17.2L, Monocytes (%) (Auto) 6.1, Eosinophils (%) (Auto) 0.7, Basophils (%) (Auto ) 0.3, Sodium Level 146H, Potassium Level 3.2L, Chloride Level 114H, Carbon Dioxide Level 22, Anion Gap 10, Blood Urea Nitrogen 22H, Creatinine 1.1, Estimat Glomerular Filtration Rate , Glucose Level 97, Calcium Level 7.0L Height (Feet): 5 Height (Inches): 6.00 Weight (Pounds): 130 Objective General: alert, cooperative, no distress, appears stated age Head: normocephalic, without obvious abnormality, atraumatic Eyes: conjunctivae/corneas clear. PERRL, EOM's intact Throat: lips, mucosa, and tongue normal. MMM Neck: supple, symmetrical, trachea midline, and no JVD Lungs: clear to auscultation bilaterally Heart: regular rate and rhythm, S1, S2 normal, no murmur, click, rub or gallop Abdomen: soft, non-tender, non-distended, bowel sounds normal; no masses or organomegaly Extremities: extremities normal, atraumatic, no cyanosis or edema Pulses: 2+ and symmetric Skin: skin color, texture, turgor normal; no rashes or lesions Neurologic: grossly normal, no focal deficits except for dysarthria, quadriparesis Agapito Butler M.D. May 30, 2017 05:08
[2017-05-30] MEDS: metroNIDAZOLE 500mg tab NG SCH ×3 (06:00→22:17)
[2017-05-30] MEDS: Piperacillin/Tazobactam 3.375 GM in NS 110 ML IVPB SCH ×2 (06:00→13:11)
[2017-05-30] MEDS: SulfASALAZine 500MG tab NG SCH ×4 (06:00→17:56)
[2017-05-30 08:00] VITALS: BP 134/92
[2017-05-30] MEDS: Aspirin Baby 81mg NG SCH (09:00)
[2017-05-30] MEDS: Eliquis 2.5mg tablet GT SCH (09:00)
--- NOTE | 2017-05-30 09:13 | Diagnostic Imaging Report ---
Indication: Tube placement Technique: XRAY Abdomen 1v Comparison: 05/27/2017 Findings: NG tube courses below level of diaphragms, tip coiled within the proximal stomach. Heart is enlarged. Dense mitral annular calcifications noted. The aorta appears ectatic and slightly calcified. There is no definite focal consolidation. Multilevel degenerative changes seen in the spine. Impression: NG tube tip coiled in the proximal stomach.
[2017-05-30 11:11] LABS: BASOPHILS % (AUTO) 0.6 % (0.0-2.0); EOSINOPHILS % (AUTO) 1.1 % (0.0-3.0); HEMATOCRIT 41.7 % (37.0-47.0); HEMOGLOBIN 13.4 G/DL (12.0-16.0); LYMPHOCYTES % (AUTO) 23.6 % (20.0-45.0); MEAN CORPUSCULAR VOLUME 88 FL (80-99); MONOCYTES % (AUTO) 7.6 % (1.0-10.0); PLATELET COUNT 281 K/UL (150-450); RED BLOOD COUNT 4.74 M/UL (4.20-5.40); RED CELL DISTRIBUTION WIDTH 14.9 % (11.6-14.8); WHITE BLOOD COUNT 6.6 K/UL (4.8-10.8)
[2017-05-30 11:46] LABS: ANION GAP 10 mmol/L (5-15); BLOOD UREA NITROGEN 20 mg/dL (7-18); CALCIUM 7.6 MG/DL (8.5-10.1); CARBON DIOXIDE 22 MMOL/L (21-32); CHLORIDE 114 MMOL/L (98-107); POTASSIUM 3.6 MMOL/L (3.5-5.1); SODIUM 146 MMOL/L (136-145)
[2017-05-30 12:00] VITALS: BP 133/89
--- NOTE | 2017-05-30 12:10 | Cardiac Electrophysiology PN ---
Assessment/Plan Assessment/Plan 1. Atrial fibrillation with rapid ventricular response. Controlled metoprolol 50 mg b.i.d.. Hold Eliquis for hematuria and vaginal bleeding. Head CT showed a suspected subacute infarct in the right posterior temporal and parietal lobe.MRI Brain negative for acute infarct. 2. Hypertension. Continue metoprolol 50 mg b.i.d. and Hydralazine 25 NG bid 3. Subacute cerebrovascular accident. Further evaluation by Dr. Gomez. 4. Seizures, on Keppra. 5. Possible rheumatoid arthritis. The patient is on methotrexate and folic acid. 6. History of sepsis, on meropenem. 7. Dysphagia. NG tube in. Recommended PEG by Speech and is pending 8. Hematuria and Vaginal bleeding. DC Eliquis. Dr Soares following LANCE RN Subjective Subjective Bleeding from Vagina and bladder with pruitt in. Comfortable in NAD.In atrial fib with controlled rate in 80s. Objective Last 24 Hour Vital Signs Date Time Temp Pulse Resp B/P (MAP) Pulse Ox O2 Delivery O2 Flow Rate FiO2 05/30/17 04:00 97.0 78 14 121/75 90 05/30/17 04:00 77 05/30/17 00:00 72 05/30/17 00:00 97.3 97 18 139/77 92 05/29/17 20:00 97.2 77 16 102/54 97 05/29/17 20:00 86 05/29/17 17:14 100/80 05/29/17 16:00 97.4 81 18 100/80 94 Room Air 05/29/17 16:00 76 Intake and Output 05/29/17 05/30/17 19:00 07:00 Intake Total 120 ml Output Total 300 ml Balance -300 ml 120 ml Intake Oral 120 ml Output Urine Total 300 ml Laboratory Tests Test 05/30/17 10:00 White Blood Count 6.6 K/UL (4.8-10.8) Red Blood Count 4.74 M/UL (4.20-5.40) Hemoglobin 13.4 G/DL (12.0-16.0) Hematocrit 41.7 % (37.0-47.0) Mean Corpuscular Volume 88 FL (80-99) Mean Corpuscular Hemoglobin 28.3 PG (27.0-31.0) Mean Corpuscular Hemoglobin Concent 32.1 G/DL (32.0-36.0) Red Cell Distribution Width 14.9 % (11.6-14.8) H Platelet Count 281 K/UL (150-450) Mean Platelet Volume 7.6 FL (6.5-10.1) Neutrophils (%) (Auto) 67.0 % (45.0-75.0) Lymphocytes (%) (Auto) 23.6 % (20.0-45.0) Monocytes (%) (Auto) 7.6 % (1.0-10.0) Eosinophils (%) (Auto) 1.1 % (0.0-3.0) Basophils (%) (Auto) 0.6 % (0.0-2.0) Sodium Level 146 MMOL/L (136-145) H Potassium Level 3.6 MMOL/L (3.5-5.1) Chloride Level 114 MMOL/L (98-107) H Carbon Dioxide Level 22 MMOL/L (21-32) Anion Gap 10 mmol/L (5-15) Blood Urea Nitrogen 20 mg/dL (7-18) H Creatinine 1.0 MG/DL (0.55-1.30) Estimat Glomerular Filtration Rate mL/min (>60) Glucose Level 83 MG/DL (74-106) Calcium Level 7.6 MG/DL (8.5-10.1) L Microbiology Date/Time Source Procedure Growth Status 05/28/17 11:40 Stool Clostridium difficile Toxin Assay - Final Complete Objective HEAD AND NECK: Showed no JVD. NG-tube in LUNGS: Decreased breath sounds. CARDIOVASCULAR: Irregular S1 and S2 with no gallop. ABDOMEN: Soft. EXTREMITIES: No pitting edema. BRODY AGUILAR May 30, 2017 12:10
[2017-05-30] MEDS: Metoprolol Tartrate 50mg tab NG SCH ×2 (12:21→22:18)
[2017-05-30] MEDS: Tamsulosin 0.4mg cap ORAL SCH (12:21)
[2017-05-30] MEDS: HydrALAZINE 25mg tab GT SCH ×2 (12:21→17:56)
--- NOTE | 2017-05-30 12:22 | Urology Progress Note ---
Assessment/Plan Assessment/Plan 1. Urinary retention. 2. Hematuria. 3. Proteinuria. 4. Urinary tract infection. 5. Neurogenic bladder. 6. Urethral stricture. keep pruitt, DO NOT REMOVE hand irrigated, position is satisfactory hand irrigate PRN abx as ordered, adjust per ID consider renal u/s cysto later d/w nursing staff Subjective Allergies: Coded Allergies: No Known Allergies (Unverified , 04/30/16) Subjective all noted, looks comfortable, new pruitt draining Objective Last 24 Hour Vital Signs Date Time Temp Pulse Resp B/P (MAP) Pulse Ox O2 Delivery O2 Flow Rate FiO2 05/30/17 04:00 97.0 78 14 121/75 90 05/30/17 04:00 77 05/30/17 00:00 72 05/30/17 00:00 97.3 97 18 139/77 92 05/29/17 20:00 97.2 77 16 102/54 97 05/29/17 20:00 86 05/29/17 17:14 100/80 05/29/17 16:00 97.4 81 18 100/80 94 Room Air 05/29/17 16:00 76 Intake and Output 05/29/17 05/30/17 19:00 07:00 Intake Total 120 ml Output Total 300 ml Balance -300 ml 120 ml Intake Oral 120 ml Output Urine Total 300 ml Microbiology Date/Time Source Procedure Growth Status 05/26/17 10:45 Blood Blood Culture - Preliminary NO GROWTH AFTER 72 HOURS Resulted 05/26/17 13:00 Nasal Nares MRSA Culture - Final NO METHICILLIN RESISTANT STAPH AUREUS... Complete 05/28/17 11:40 Stool Clostridium difficile Toxin Assay - Final Complete 05/26/17 10:45 Urine,Clean Catch Urine Culture - Final Enterococcus Faecium - Vre Anh Albicans Complete 05/26/17 13:00 Rectum VRE Culture - Final Enterococcus Faecium - Vre Complete Current Medications Medications (Trade) Dose Ordered Sig/Renea Route PRN Reason Start Time Stop Time Status Last Admin Dose Admin Acetaminophen (Tylenol) 650 mg Q4H PRN ORAL Mild Pain/Temp > 100.5 05/27/17 07:45 06/26/17 07:44 Apixaban (Eliquis) 2.5 mg BID GT 05/27/17 18:00 06/26/17 17:59 05/29/17 17:14 Aspirin (ASA) 81 mg DAILY NG 05/27/17 16:00 06/26/17 15:59 05/29/17 10:12 Atorvastatin Calcium (Lipitor) 80 mg BEDTIME NG 05/27/17 21:00 06/26/17 20:59 05/28/17 23:37 Folic Acid (Folate) 1 mg DAILY NG 05/28/17 09:00 06/27/17 08:59 05/29/17 10:11 Hydralazine HCl (Apresoline) 25 mg TWICE A DAY GT 05/28/17 18:00 06/27/17 17:59 05/29/17 17:14 Levetiracetam (Keppra) 750 mg Q12HR NG 05/29/17 21:00 06/28/17 20:59 Metoprolol Tartrate (Lopressor) 50 mg Q12HR NG 05/27/17 21:00 06/26/17 20:59 05/29/17 10:11 Metronidazole (Flagyl) 500 mg Q8HR NG 05/29/17 09:00 06/05/17 08:59 05/29/17 13:10 Mirtazapine (Remeron) 15 mg BEDTIME NG 05/27/17 21:00 06/26/17 20:59 05/28/17 23:40 Paroxetine HCl (Paxil) 10 mg BEDTIME NG 05/28/17 21:00 06/27/17 08:59 05/28/17 23:39 Piperacillin Sod/ Tazobactam Sod 3.375 gm/Sodium Chloride 110 ml @ 27.5 mls/hr Q8HR IVPB 05/29/17 22:00 06/04/17 21:59 05/29/17 22:32 Sodium Chloride 1,000 ml @ 75 mls/hr [id number] IV 05/27/17 16:00 06/26/17 15:59 05/29/17 22:35 Sulfasalazine (Azulfidine) 500 mg EVERY 6 HOURS NG 05/27/17 18:00 06/26/17 17:59 05/29/17 17:14 Tamsulosin HCl (Flomax) 0.4 mg DAILY ORAL 05/28/17 10:00 06/27/17 09:59 05/29/17 10:13 Tramadol HCl (Ultram) 50 mg Q4H PRN NG Moderate Pain (Pain Scale 4-6) 05/27/17 15:45 06/03/17 15:44 Laboratory Tests 05/30/17 10:00: White Blood Count 6.6, Red Blood Count 4.74, Hemoglobin 13.4, Hematocrit 41.7, Mean Corpuscular Volume 88, Mean Corpuscular Hemoglobin 28.3, Mean Corpuscular Hemoglobin Concent 32.1, Red Cell Distribution Width 14.9H, Platelet Count 281, Mean Platelet Volume 7.6, Neutrophils (%) (Auto) 67.0, Lymphocytes (%) (Auto) 23.6, Monocytes (%) (Auto) 7.6, Eosinophils (%) (Auto) 1.1, Basophils (%) (Auto ) 0.6, Sodium Level 146H, Potassium Level 3.6, Chloride Level 114H, Carbon Dioxide Level 22, Anion Gap 10, Blood Urea Nitrogen 20H, Creatinine 1.0, Estimat Glomerular Filtration Rate , Glucose Level 83, Calcium Level 7.6L Height (Feet): 5 Height (Inches): 6.00 Weight (Pounds): 130 Objective exam stable, urine dark michelle BAMSHADJOSH May 30, 2017 12:22
--- NOTE | 2017-05-30 13:45 | General Progress Note ---
Assessment/Plan Problem List: (1) Seizure ICD Codes: R56.9 - Unspecified convulsions SNOMED: 72056842 (2) CVA (cerebral vascular accident) ICD Codes: I63.9 - Cerebral infarction, unspecified SNOMED: 067005635 (3) Toxic metabolic encephalopathy ICD Codes: G92 - Toxic encephalopathy SNOMED: 560640570 (4) Acute kidney injury ICD Codes: N17.9 - Acute kidney failure, unspecified SNOMED: 21020166 (5) Lactic acid acidosis ICD Codes: E87.2 - Acidosis SNOMED: 68858213 (6) Atrial fibrillation with RVR ICD Codes: I48.91 - Unspecified atrial fibrillation SNOMED: 627545641830810 (7) Dementia ICD Codes: F03.90 - Unspecified dementia without behavioral disturbance SNOMED: 27644549 (8) Depression ICD Codes: F32.9 - Major depressive disorder, single episode, unspecified SNOMED: 95566912 (9) UTI (urinary tract infection) ICD Codes: N39.0 - Urinary tract infection, site not specified SNOMED: 19392691 (10) HTN (hypertension) ICD Codes: I10 - Essential (primary) hypertension SNOMED: 54272184 (11) C. difficile colitis ICD Codes: A04.72 - Enterocolitis due to Clostridium difficile, not specified as recurrent SNOMED: 317451314 (12) Gross hematuria ICD Codes: R31.0 - Gross hematuria SNOMED: 296757226 (13) Dysphagia ICD Codes: R13.10 - Dysphagia, unspecified SNOMED: 91400536, 853432992 (14) Hypernatremia ICD Codes: E87.0 - Hyperosmolality and hypernatremia SNOMED: 22960152 Status: stable Assessment/Plan Neurology and cardiology consulted F/u MRI brain --> multiple old infarcts F/u EEG --> shows an epileptic focus Increased keppra to 750mg BID Neuro checks Cont ASA, statin F/u TTE --> EF 55% Cont MTP and Eliquis NPO per swallow eval NGT placed for feeds and meds (son agreed). D/w son who would like to proceed w / G tube. GI consulted ID consulted Cont linezolid, diflucan and flagyl per ID F/u cultures Urology consulted Cont pruitt, monitor for bleeding Trend CBC PT/OT/ST eval DC planning back to SNF once PEG in DVT Prophylaxis: SCD, Eliquis Code Status: Full Hospital Classification Declaration: Based on this initial evaluation, and depending on the patient's clinical course, I anticipate that this patient will require hospitalization for 1-2 days for hematuria and close respiratory/ hemodynamic monitoring. Disposition: Once the patient is stable to leave the hospital, I anticipate the patient will likely be discharged to the following environment: back to SNF Discussed with patient/family, nursing staff, SW/CM, ID, urology regarding clinical status, treatment course, and disposition planning. Time of note may not reflect time of encounter. Subjective Date patient seen: May 30, 2017 Time patient seen: 13:45 ROS Limited/Unobtainable: Yes Constitutional: Reports: no symptoms HEENT: Reports: no symptoms Cardiovascular: Reports: no symptoms Respiratory: Reports: no symptoms Gastrointestinal/Abdominal: Reports: no symptoms Genitourinary: Reports: no symptoms Neurologic/Psychiatric: Reports: no symptoms Endocrine: Reports: no symptoms Hematologic/Lymphatic: Reports: no symptoms Allergies: Coded Allergies: No Known Allergies (Unverified , 04/30/16) All Systems: reviewed and negative except above Subjective No acute o/n events Noted to have hematuria this AM. Pt remains seizure free. MRI brain showed old infarcts. HR improved. EEG showed epileptic focus. Keppra dose increased. Cont on tube feeds Pt less dysarthric. Cont to have weakness D/w pt's son who would like to proceed w/ G tube ROS limited 2/2 AMS, lethargic Objective Last 24 Hour Vital Signs Date Time Temp Pulse Resp B/P (MAP) Pulse Ox O2 Delivery O2 Flow Rate FiO2 05/30/17 12:21 134/92 05/30/17 12:21 93 134/82 05/30/17 04:00 97.0 78 14 121/75 90 05/30/17 04:00 77 05/30/17 00:00 72 05/30/17 00:00 97.3 97 18 139/77 92 05/29/17 20:00 97.2 77 16 102/54 97 05/29/17 20:00 86 05/29/17 17:14 100/80 05/29/17 16:00 97.4 81 18 100/80 94 Room Air 05/29/17 16:00 76 Intake and Output 05/29/17 05/30/17 19:00 07:00 Intake Total 120 ml Output Total 300 ml Balance -300 ml 120 ml Intake Oral 120 ml Output Urine Total 300 ml Laboratory Tests 05/30/17 10:00: White Blood Count 6.6, Red Blood Count 4.74, Hemoglobin 13.4, Hematocrit 41.7, Mean Corpuscular Volume 88, Mean Corpuscular Hemoglobin 28.3, Mean Corpuscular Hemoglobin Concent 32.1, Red Cell Distribution Width 14.9H, Platelet Count 281, Mean Platelet Volume 7.6, Neutrophils (%) (Auto) 67.0, Lymphocytes (%) (Auto) 23.6, Monocytes (%) (Auto) 7.6, Eosinophils (%) (Auto) 1.1, Basophils (%) (Auto ) 0.6, Sodium Level 146H, Potassium Level 3.6, Chloride Level 114H, Carbon Dioxide Level 22, Anion Gap 10, Blood Urea Nitrogen 20H, Creatinine 1.0, Estimat Glomerular Filtration Rate , Glucose Level 83, Calcium Level 7.6L Height (Feet): 5 Height (Inches): 6.00 Weight (Pounds): 130 Objective General: alert, cooperative, no distress, appears stated age Head: normocephalic, without obvious abnormality, atraumatic Eyes: conjunctivae/corneas clear. PERRL, EOM's intact Throat: lips, mucosa, and tongue normal. MMM Neck: supple, symmetrical, trachea midline, and no JVD Lungs: clear to auscultation bilaterally Heart: regular rate and rhythm, S1, S2 normal, no murmur, click, rub or gallop Abdomen: soft, non-tender, non-distended, bowel sounds normal; no masses or organomegaly Extremities: extremities normal, atraumatic, no cyanosis or edema Pulses: 2+ and symmetric Skin: skin color, texture, turgor normal; no rashes or lesions Neurologic: grossly normal, no focal deficits except for dysarthria, quadriparesis Agapito Butler M.D. May 30, 2017 13:45
--- NOTE | 2017-05-30 14:08 | Neurology Progress Note ---
Interim History Interim History Interim History Ms. Marquez feels unwell. She has pain in her suprapubic area. She is producing bloody urine. She is less dysarthric but is still difficult to understand. She has been seizure-free. She continues to be cognitively impoverished. She continues to be motorically challenged. She denies any new neurologic symptoms Review of Systems Neuro Review of Systems Benign. Objective Physical Exam Last Vital Signs Date Time Temp Pulse Resp B/P (MAP) Pulse Ox O2 Delivery O2 Flow Rate FiO2 05/30/17 12:21 134/92 05/30/17 12:21 93 05/30/17 04:00 97.0 14 90 05/29/17 16:00 Room Air Laboratory Tests Test 05/30/17 10:00 White Blood Count 6.6 K/UL (4.8-10.8) Red Blood Count 4.74 M/UL (4.20-5.40) Hemoglobin 13.4 G/DL (12.0-16.0) Hematocrit 41.7 % (37.0-47.0) Mean Corpuscular Volume 88 FL (80-99) Mean Corpuscular Hemoglobin 28.3 PG (27.0-31.0) Mean Corpuscular Hemoglobin Concent 32.1 G/DL (32.0-36.0) Red Cell Distribution Width 14.9 % (11.6-14.8) H Platelet Count 281 K/UL (150-450) Mean Platelet Volume 7.6 FL (6.5-10.1) Neutrophils (%) (Auto) 67.0 % (45.0-75.0) Lymphocytes (%) (Auto) 23.6 % (20.0-45.0) Monocytes (%) (Auto) 7.6 % (1.0-10.0) Eosinophils (%) (Auto) 1.1 % (0.0-3.0) Basophils (%) (Auto) 0.6 % (0.0-2.0) Sodium Level 146 MMOL/L (136-145) H Potassium Level 3.6 MMOL/L (3.5-5.1) Chloride Level 114 MMOL/L (98-107) H Carbon Dioxide Level 22 MMOL/L (21-32) Anion Gap 10 mmol/L (5-15) Blood Urea Nitrogen 20 mg/dL (7-18) H Creatinine 1.0 MG/DL (0.55-1.30) Estimat Glomerular Filtration Rate mL/min (>60) Glucose Level 83 MG/DL (74-106) Calcium Level 7.6 MG/DL (8.5-10.1) L Neurologic Exam Objective PHYSICAL EXAMINATION: GENERAL: She is a well-developed, well-nourished, pleasant, black lady, lying in bed, in no acute distress. HEAD: Normocephalic and atraumatic. NECK: No neck rigidity was observed. EENT: Benign. NEUROLOGIC EXAMINATION: MENTAL STATUS EXAMINATION: She was awake and alert. She was oriented to self and hospital only. She was able to repeat 3 words, but was unable to remember any of them in 1 minute and 3 minutes. She was able to remember Trump when the first name was given to her. Further mental status testing was quite impossible because of significant dysarthria and possibly an aphasia. SPEECH: She had moderate dysarthria. LANGUAGE: She had problems with comprehension and expression of language. CRANIAL NERVE EXAMINATION: II: She had a possible right visual field deficit to threat. She was unable to cooperate for confrontation testing. III, IV & : External ocular movements are full and the pupils 3 mm in diameter, equal, round, regular, and reactive sluggishly to light. V: She had normal facial sensations and the temporales, masseters, and pterygoids functioned normally. VII: She had a right greater than left seventh central facial paresis. VIII: She seemed to be able to hear and had no nystagmus. IX: The palate moved symmetrically on phonation. X: She had no hoarseness of voice. XI: The sternocleidomastoids and trapezii functioned normally. XII: The tongue was in the midline without any fasciculations or atrophy. MOTOR SYSTEM: The tone was increased in all four extremities with a mild degree of spasticity. Examination of muscle mass revealed generalized muscle wasting. Examination of power was exceedingly difficult to perform because of varying degrees of cooperation. 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 SENSORY EXAMINATION: She responded appropriately to light touch. She was unable to cooperate for other sensory modalities. REFLEXES: Trace+ and bilaterally symmetrical at the biceps, triceps, brachioradialis, and knees, 0 at both ankles. The plantar responses were extensor bilaterally. COORDINATION, STANCE & GAIT: Could not be tested. Impression/Recommendations Diagnostic Impression 1. Ms. Marcelle Marquez is a 71-year-old, right-handed, black lady, who does have a past history of depression, hypertension, dyslipidemia, cerebrovascular disease with multiple strokes, and chronic anticoagulation for atrial fibrillation, who was hospitalized after she had two generalized tonic-clonic seizures in her [facility]. On being evaluated in the emergency room, she was found to have a significant urinary tract infection. 2. She is less encephalopathic today. She continues to be cognitively impoverished. She continues to be motorically challenged. She has been seizure- free. She is bothered by suprapubic pain and is producing bloody urine. 3. On neurological examination, at this time, she does demonstrate problems with orientation, recent and remote memory, higher cognitive function, and language. 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 4. The CT scan of the brain reveals chronic infarcts involving the right temporal lobe, left occipital lobe, left thalamus, and basal ganglia. 5. Her laboratory data revealed that the lactic acid was elevated to 6.1. Her BUN was elevated to 26 with a creatinine of 1.4. Her proBNP was elevated to 12, 677. She was hypoalbuminemic with albumin of 2.3 and her urinalysis revealed 3 + leukocyte esterase, 30 to 40 red blood cells, and 20 to 30 white blood cells per high-power field. 6. The MRI of the brain done on 05/28/17 revealed no acute pathology. Multiple old infarcts were seen. 7. The EEG revealed a moderate encephalopathy and a C4 (Right Central) epileptogenic focus. 8. 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 Recommendations 1. Continue present management. 2. Continue Keppra 750 mg q.12 h. for seizure prophylaxis. 3. The patient's urinary tract infection should be treated aggressively. 4. Observe closely. Goran Gomez M.D., MReS.PDrea. GORAN GOMEZ May 30, 2017 14:08
[2017-05-30 16:00] VITALS: BP 138/95
--- NOTE | 2017-05-30 16:41 | Infectious Diseases Prog Note ---
Assessment/Plan Assessment/Plan ASSESSMENT AND PLAN: 1. c.diff. colitis, vre uti, ? fungal uti, sepsis, uti, leukocytosis, fevers, sz , ams, chest x-ray negative - flagyl x 10 days - zyvox x 7 days - diflucan x 5 days - watch labs 2. hyperlipidemia. 3. Elevated creatinine, anemia 4. Possible chronic renal failure. 5. Cerebrovascular accident. 6. hypertension 7. The patient is on methotrexate 8. atrial fibrillation 9. Depression, anxiety 10. Dementia. 11. Dysphagia. 12. Gastroesophageal reflux disease. 13. Decrease in walking. 14. Weakness. 15. Cerebral infarction. 16. History of urinary tract infection. 17. Dementia per the records. 18. Past medical history noted. 19. No known allergies. 20. Social history negative. 21. Family history is noncontributory. 22. MAR was noted. 23. Case discussed with RN. 24. Case discussed with Dr. Altman 25. vre colonization and isolation 26. allergies - negative 27. vre colonization and isolation Subjective Constitutional: Reports: fatigue, other - weak, + ngt, Denies: fever HEENT: Denies: congestion Respiratory: Denies: shortness of breath Cardiovascular: Reports: other - no pressors, Denies: chest pain Gastrointestinal/Abdominal: Denies: nausea, vomiting Genitourinary: Reports: other - + pruitt Neurologic: Denies: headache Psychiatric: Denies: depression Skin: Denies: rash Hematologic: Denies: bleeding Musculoskeletal: Denies: pain Allergies: Coded Allergies: No Known Allergies (Unverified , 04/30/16) Objective Vital Signs Last 24 Hour Vital Signs Date Time Temp Pulse Resp B/P (MAP) Pulse Ox O2 Delivery O2 Flow Rate FiO2 05/30/17 16:00 97.0 76 20 138/95 94 05/30/17 12:21 134/92 05/30/17 12:21 93 134/82 05/30/17 12:00 96.9 92 20 133/89 93 05/30/17 12:00 98 05/30/17 08:00 90 05/30/17 08:00 97.0 93 20 134/92 93 05/30/17 04:00 97.0 78 14 121/75 90 05/30/17 04:00 77 05/30/17 00:00 72 05/30/17 00:00 97.3 97 18 139/77 92 05/29/17 20:00 97.2 77 16 102/54 97 05/29/17 20:00 86 05/29/17 17:14 100/80 Height (Feet): 5 Height (Inches): 6.00 Weight (Pounds): 130 General Appearance: no acute distress HEENT: normocephalic, atraumatic, anicteric, mucous membranes moist, EOMI, pharynx normal, supple, no JVD Respiratory/Chest: lungs clear, normal breath sounds, no respiratory distress, no accessory muscle use Cardiovascular: normal rate, regular rhythm, no gallop/murmur, no JVD Abdomen: normal bowel sounds, soft, non tender, no organomegaly, non distended Genitourinary: other - + pruitt - + hematuria Extremities: no cyanosis Skin: no rash Neurologic/Psychiatric: area development manager II-XII grossly normal, alert, responsive Lymphatic: no neck adenopathy Musculoskeletal: no effusion Objective chest x-ray - negative (noted) imaging reviewed Microbiology Date/Time Source Procedure Growth Status 05/26/17 10:45 Blood Blood Culture - Preliminary NO GROWTH AFTER 72 HOURS Resulted 05/26/17 13:00 Nasal Nares MRSA Culture - Final NO METHICILLIN RESISTANT STAPH AUREUS... Complete 05/28/17 11:40 Stool Clostridium difficile Toxin Assay - Final Complete 05/26/17 10:45 Urine,Clean Catch Urine Culture - Final Enterococcus Faecium - Vre Anh Albicans Complete 05/26/17 13:00 Rectum VRE Culture - Final Enterococcus Faecium - Vre Complete Microbiology Date/Time Source Procedure Growth Status 05/28/17 11:40 Stool Clostridium difficile Toxin Assay - Final Complete Laboratory Tests Test 05/30/17 10:00 White Blood Count 6.6 K/UL (4.8-10.8) Red Blood Count 4.74 M/UL (4.20-5.40) Hemoglobin 13.4 G/DL (12.0-16.0) Hematocrit 41.7 % (37.0-47.0) Mean Corpuscular Volume 88 FL (80-99) Mean Corpuscular Hemoglobin 28.3 PG (27.0-31.0) Mean Corpuscular Hemoglobin Concent 32.1 G/DL (32.0-36.0) Red Cell Distribution Width 14.9 % (11.6-14.8) H Platelet Count 281 K/UL (150-450) Mean Platelet Volume 7.6 FL (6.5-10.1) Neutrophils (%) (Auto) 67.0 % (45.0-75.0) Lymphocytes (%) (Auto) 23.6 % (20.0-45.0) Monocytes (%) (Auto) 7.6 % (1.0-10.0) Eosinophils (%) (Auto) 1.1 % (0.0-3.0) Basophils (%) (Auto) 0.6 % (0.0-2.0) Sodium Level 146 MMOL/L (136-145) H Potassium Level 3.6 MMOL/L (3.5-5.1) Chloride Level 114 MMOL/L (98-107) H Carbon Dioxide Level 22 MMOL/L (21-32) Anion Gap 10 mmol/L (5-15) Blood Urea Nitrogen 20 mg/dL (7-18) H Creatinine 1.0 MG/DL (0.55-1.30) Estimat Glomerular Filtration Rate mL/min (>60) Glucose Level 83 MG/DL (74-106) Calcium Level 7.6 MG/DL (8.5-10.1) L Current Medications Medications (Trade) Dose Ordered Sig/Renea Route PRN Reason Start Time Stop Time Status Last Admin Dose Admin Acetaminophen (Tylenol) 650 mg Q4H PRN ORAL Mild Pain/Temp > 100.5 05/27/17 07:45 06/26/17 07:44 Aspirin (ASA) 81 mg DAILY NG 05/27/17 16:00 06/26/17 15:59 05/29/17 10:12 Atorvastatin Calcium (Lipitor) 80 mg BEDTIME NG 05/27/17 21:00 06/26/17 20:59 05/28/17 23:37 Folic Acid (Folate) 1 mg DAILY NG 05/28/17 09:00 06/27/17 08:59 05/30/17 12:20 Hydralazine HCl (Apresoline) 25 mg TWICE A DAY GT 05/28/17 18:00 06/27/17 17:59 05/30/17 12:21 Levetiracetam (Keppra) 750 mg Q12HR NG 05/29/17 21:00 06/28/17 20:59 05/30/17 12:22 Metoprolol Tartrate (Lopressor) 50 mg Q12HR NG 05/27/17 21:00 06/26/17 20:59 05/30/17 12:21 Metronidazole (Flagyl) 500 mg Q8HR NG 05/29/17 09:00 06/05/17 08:59 05/30/17 13:11 Mirtazapine (Remeron) 15 mg BEDTIME NG 05/27/17 21:00 06/26/17 20:59 05/28/17 23:40 Paroxetine HCl (Paxil) 10 mg BEDTIME NG 05/28/17 21:00 06/27/17 08:59 05/28/17 23:39 Piperacillin Sod/ Tazobactam Sod 3.375 gm/Sodium Chloride 110 ml @ 27.5 mls/hr Q8HR IVPB 05/29/17 22:00 06/04/17 21:59 05/30/17 13:11 Sodium Chloride 1,000 ml @ 75 mls/hr [id number] IV 05/27/17 16:00 06/26/17 15:59 05/30/17 10:40 Sulfasalazine (Azulfidine) 500 mg EVERY 6 HOURS NG 05/27/17 18:00 06/26/17 17:59 05/30/17 12:44 Tamsulosin HCl (Flomax) 0.4 mg DAILY ORAL 05/28/17 10:00 06/27/17 09:59 05/30/17 12:21 Tramadol HCl (Ultram) 50 mg Q4H PRN NG Moderate Pain (Pain Scale 4-6) 05/27/17 15:45 06/03/17 15:44 AMPARO HARRISON May 30, 2017 16:41
[2017-05-30] MEDS: Fluconazole 100mg tab ORAL SCH (18:08)
[2017-05-30 20:00] VITALS: BP 158/81
[2017-05-30] MEDS: Atorvastatin 80mg tab NG SCH (22:17)
[2017-05-30] MEDS: PARoxetine 20mg tab NG SCH (22:17)
[2017-05-31] VITALS: BP 142/102
[2017-05-31] MEDS: SulfASALAZine 500MG tab NG SCH ×4 (01:20→17:46)
[2017-05-31 04:00] VITALS: BP 123/97
[2017-05-31] MEDS: metroNIDAZOLE 500mg tab NG SCH ×3 (06:01→22:00)
[2017-05-31 07:29] LABS: ANION GAP 7 mmol/L (5-15); BLOOD UREA NITROGEN 13 mg/dL (7-18); CALCIUM 7.5 MG/DL (8.5-10.1); CARBON DIOXIDE 26 MMOL/L (21-32); CHLORIDE 114 MMOL/L (98-107); CREATININE 1.1 MG/DL (0.55-1.30); POTASSIUM 3.7 MMOL/L (3.5-5.1); SODIUM 146 MMOL/L (136-145)
[2017-05-31 07:36] LABS: BASOPHILS % (AUTO) 0.7 % (0.0-2.0); EOSINOPHILS % (AUTO) 2.1 % (0.0-3.0); HEMATOCRIT 39.9 % (37.0-47.0); HEMOGLOBIN 12.9 G/DL (12.0-16.0); MEAN CORPUSCULAR VOLUME 88 FL (80-99); MONOCYTES % (AUTO) 7.6 % (1.0-10.0); NEUTROPHILS % (AUTO) 62.7 % (45.0-75.0); PLATELET COUNT 288 K/UL (150-450); RED BLOOD COUNT 4.56 M/UL (4.20-5.40); RED CELL DISTRIBUTION WIDTH 15.3 % (11.6-14.8); WHITE BLOOD COUNT 5.1 K/UL (4.8-10.8)
[2017-05-31 08:00] VITALS: BP 150/94
--- NOTE | 2017-05-31 08:53 | Cardiac Electrophysiology PN ---
Assessment/Plan Assessment/Plan 1. Atrial fibrillation with rapid ventricular response. Controlled with metoprolol 50 mg b.i.d. Off Eliquis for hematuria and vaginal bleeding. Head CT showed a suspected subacute infarct in the right posterior temporal and parietal lobe.MRI Brain negative for acute infarct. 2. Hypertension. Continue metoprolol 50 mg b.i.d. and Hydralazine 25 NG bid 3. Subacute cerebrovascular accident. Further evaluation by Dr. Gomez. 4. Seizures, on Keppra. 5. Possible rheumatoid arthritis. The patient is on methotrexate and folic acid. 6. History of sepsis, on meropenem. 7. Dysphagia. NG tube in. PEG pending 8. Hematuria and Vaginal bleeding. Off Eliquis. Dr Soares following 9. C.diff. colitis, vre uti, Recommended by ID on flagyl, zyvox,diflucan DW RN Subjective Subjective Bleeding from Vagina and bladder with Prather in. In atrial fib with controlled rate in 70-80s.NG tube in Objective Last 24 Hour Vital Signs Date Time Temp Pulse Resp B/P (MAP) Pulse Ox O2 Delivery O2 Flow Rate FiO2 05/31/17 04:00 83 05/31/17 04:00 97.9 75 20 123/97 97 05/31/17 00:00 97.0 95 16 142/102 97 05/31/17 00:00 74 05/30/17 22:18 80 158/81 05/30/17 20:00 82 05/30/17 20:00 97.0 80 14 158/81 90 05/30/17 17:56 138/95 05/30/17 16:00 97.0 76 20 138/95 94 05/30/17 16:00 82 05/30/17 12:21 134/92 05/30/17 12:21 93 134/82 05/30/17 12:00 96.9 92 20 133/89 93 05/30/17 12:00 98 Intake and Output 05/30/17 05/31/17 19:00 07:00 Intake Total 225 ml Output Total 300 ml 500 ml Balance -300 ml -275 ml IV Total 225 ml Output Urine Total 300 ml 500 ml # Bowel Movements 3 2 Laboratory Tests Test 05/30/17 10:00 05/31/17 05:50 White Blood Count 6.6 K/UL (4.8-10.8) 5.1 K/UL (4.8-10.8) Red Blood Count 4.74 M/UL (4.20-5.40) 4.56 M/UL (4.20-5.40) Hemoglobin 13.4 G/DL (12.0-16.0) 12.9 G/DL (12.0-16.0) Hematocrit 41.7 % (37.0-47.0) 39.9 % (37.0-47.0) Mean Corpuscular Volume 88 FL (80-99) 88 FL (80-99) Mean Corpuscular Hemoglobin 28.3 PG (27.0-31.0) 28.3 PG (27.0-31.0) Mean Corpuscular Hemoglobin Concent 32.1 G/DL (32.0-36.0) 32.3 G/DL (32.0-36.0) Red Cell Distribution Width 14.9 % (11.6-14.8) H 15.3 % (11.6-14.8) H Platelet Count 281 K/UL (150-450) 288 K/UL (150-450) Mean Platelet Volume 7.6 FL (6.5-10.1) 7.1 FL (6.5-10.1) Neutrophils (%) (Auto) 67.0 % (45.0-75.0) 62.7 % (45.0-75.0) Lymphocytes (%) (Auto) 23.6 % (20.0-45.0) 27.0 % (20.0-45.0) Monocytes (%) (Auto) 7.6 % (1.0-10.0) 7.6 % (1.0-10.0) Eosinophils (%) (Auto) 1.1 % (0.0-3.0) 2.1 % (0.0-3.0) Basophils (%) (Auto) 0.6 % (0.0-2.0) 0.7 % (0.0-2.0) Sodium Level 146 MMOL/L (136-145) H 146 MMOL/L (136-145) H Potassium Level 3.6 MMOL/L (3.5-5.1) 3.7 MMOL/L (3.5-5.1) Chloride Level 114 MMOL/L (98-107) H 114 MMOL/L (98-107) H Carbon Dioxide Level 22 MMOL/L (21-32) 26 MMOL/L (21-32) Anion Gap 10 mmol/L (5-15) 7 mmol/L (5-15) Blood Urea Nitrogen 20 mg/dL (7-18) H 13 mg/dL (7-18) Creatinine 1.0 MG/DL (0.55-1.30) 1.1 MG/DL (0.55-1.30) Estimat Glomerular Filtration Rate mL/min (>60) mL/min (>60) Glucose Level 83 MG/DL (74-106) 110 MG/DL (74-106) H Calcium Level 7.6 MG/DL (8.5-10.1) L 7.5 MG/DL (8.5-10.1) L Microbiology Date/Time Source Procedure Growth Status 05/28/17 11:40 Stool Clostridium difficile Toxin Assay - Final Complete Objective HEAD AND NECK: Showed no JVD. NG-tube in LUNGS: Decreased breath sounds. CARDIOVASCULAR: Irregular S1 and S2 with no gallop. ABDOMEN: Soft. EXTREMITIES: No pitting edema. BRODY AGUILAR May 31, 2017 08:53
[2017-05-31] MEDS: Aspirin Baby 81mg NG SCH (09:00)
[2017-05-31] MEDS ORDERED: Metoprolol 25mg tab ONE (09:39)
[2017-05-31] MEDS: Tamsulosin 0.4mg cap ORAL SCH (09:47)
[2017-05-31] MEDS: HydrALAZINE 25mg tab GT SCH ×2 (09:48→17:46)
[2017-05-31] MEDS: Fluconazole 100mg tab ORAL SCH (09:49)
[2017-05-31] MEDS: Metoprolol Tartrate 50mg tab NG SCH ×2 (10:35→21:00)
[2017-05-31 12:00] VITALS: BP 145/84
--- NOTE | 2017-05-31 12:23 | Diagnostic Imaging Report ---
Indication: Hematuria, vaginal bleeding Technique: Abdominal and transvaginal exam was performed. A total of 9 images were submitted. The exam was not able to be performed given severe vaginal bleeding. Comparison: No prior pelvic ultrasound available for comparison. Correlation made to CT of the abdomen and pelvis 11/23/2016 Findings: A total of 9 images were obtained. The urinary bladder is decompressed, limiting its evaluation. There is suggestion of a uterine mass. This may possibly related to a fibroid as the uterus is noted to be somewhat lobular with coarse calcifications on the prior CT scan however evaluation is nondiagnostic. Impression: Incomplete, nondiagnostic evaluation.Possible uterine mass may represent a fibroid as the uterus was noted to be lobular in contour with coarse calcifications on the prior CT 11/23/2016. Nondiagnostic evaluation of the endometrium. Ovaries not seen. The possibility of gynecologic malignancy is not excluded. Repeat exam or contrast-enhanced CT or MR recommended. Consider direct visualization/gynecologic exam.
--- NOTE | 2017-05-31 13:15 | General Progress Note ---
Assessment/Plan Problem List: (1) HTN (hypertension) ICD Codes: I10 - Essential (primary) hypertension SNOMED: 42802569 (2) Vaginal bleeding ICD Codes: N93.9 - Abnormal uterine and vaginal bleeding, unspecified SNOMED: 994418053, 866168023 (3) Gross hematuria ICD Codes: R31.0 - Gross hematuria SNOMED: 972370224 (4) Seizure ICD Codes: R56.9 - Unspecified convulsions SNOMED: 42207112 (5) CVA (cerebral vascular accident) ICD Codes: I63.9 - Cerebral infarction, unspecified SNOMED: 362797193 (6) Toxic metabolic encephalopathy ICD Codes: G92 - Toxic encephalopathy SNOMED: 179464995 (7) Acute kidney injury ICD Codes: N17.9 - Acute kidney failure, unspecified SNOMED: 54091521 (8) Lactic acid acidosis ICD Codes: E87.2 - Acidosis SNOMED: 61844113 (9) Atrial fibrillation with RVR ICD Codes: I48.91 - Unspecified atrial fibrillation SNOMED: 974926670124178 (10) Dementia ICD Codes: F03.90 - Unspecified dementia without behavioral disturbance SNOMED: 66220771 (11) Depression ICD Codes: F32.9 - Major depressive disorder, single episode, unspecified SNOMED: 22783028 (12) UTI (urinary tract infection) ICD Codes: N39.0 - Urinary tract infection, site not specified SNOMED: 17243852 (13) C. difficile colitis ICD Codes: A04.72 - Enterocolitis due to Clostridium difficile, not specified as recurrent SNOMED: 267786633 (14) Dysphagia ICD Codes: R13.10 - Dysphagia, unspecified SNOMED: 88299197, 762444163 (15) Hypernatremia ICD Codes: E87.0 - Hyperosmolality and hypernatremia SNOMED: 38027962 (16) Acute blood loss anemia ICD Codes: D62 - Acute posthemorrhagic anemia SNOMED: 123042795 (17) Severe sepsis ICD Codes: A41.9 - Sepsis, unspecified organism; R65.20 - Severe sepsis without septic shock SNOMED: 27278990 Status: stable Assessment/Plan Neurology and cardiology consulted F/u MRI brain --> multiple old infarcts F/u EEG --> shows an epileptic focus Increased keppra to 750mg BID Neuro checks Cont ASA, statin F/u TTE --> EF 55% Cont MTP NPO per swallow eval NGT placed for feeds and meds (son agreed). D/w son who would like to proceed w / G tube. GI consulted w/ likely plan for G tube on Thursday. Eliquis held since 05/29 ID consulted Cont linezolid, diflucan and flagyl per ID F/u cultures Urology consulted given hematuria Hold Eliquis Cont pruitt Analysis Specialist consulted given vaginal bleeding U/S pelvis was limited but possible uterine mass vs fibroid Trend CBC PT/OT/ST eval DC planning back to SNF once G tube in DVT Prophylaxis: SCD, Eliquis Code Status: Full Hospital Classification Declaration: Based on this initial evaluation, and depending on the patient's clinical course, I anticipate that this patient will require hospitalization for 1-2 days for hematuria and close respiratory/ hemodynamic monitoring. Disposition: Once the patient is stable to leave the hospital, I anticipate the patient will likely be discharged to the following environment: back to SNF Discussed with patient/family, nursing staff, SW/CM, ID, urology regarding clinical status, treatment course, and disposition planning. D/w manager psychology re vaginal bleeding. D/w urology re hematuria. D/w GI re G tube Time of note may not reflect time of encounter. Subjective Date patient seen: May 31, 2017 Time patient seen: 13:15 ROS Limited/Unobtainable: Yes Constitutional: Reports: no symptoms HEENT: Reports: no symptoms Cardiovascular: Reports: no symptoms Respiratory: Reports: no symptoms Gastrointestinal/Abdominal: Reports: no symptoms Genitourinary: Reports: no symptoms Neurologic/Psychiatric: Reports: no symptoms Endocrine: Reports: no symptoms Hematologic/Lymphatic: Reports: no symptoms Allergies: Coded Allergies: No Known Allergies (Unverified , 04/30/16) All Systems: reviewed and negative except above Subjective No acute o/n events Cont to have gross hematuria via pruitt. Also noted to have vaginal bleeding. Pt remains seizure free. MRI brain showed old infarcts. HR improved. EEG showed epileptic focus. Keppra dose increased. Cont on tube feeds Pt less dysarthric. D/w pt's son who would like to proceed w/ G tube ROS limited 2/2 AMS, lethargic Objective Last 24 Hour Vital Signs Date Time Temp Pulse Resp B/P (MAP) Pulse Ox O2 Delivery O2 Flow Rate FiO2 05/31/17 10:35 75 150/94 05/31/17 09:48 150/94 05/31/17 08:00 96.9 67 20 150/94 95 05/31/17 04:00 83 05/31/17 04:00 97.9 75 20 123/97 97 05/31/17 00:00 97.0 95 16 142/102 97 05/31/17 00:00 74 05/30/17 22:18 80 158/81 05/30/17 20:00 82 05/30/17 20:00 97.0 80 14 158/81 90 05/30/17 17:56 138/95 05/30/17 16:00 97.0 76 20 138/95 94 05/30/17 16:00 82 Intake and Output 05/30/17 05/31/17 19:00 07:00 Intake Total 225 ml Output Total 300 ml 500 ml Balance -300 ml -275 ml IV Total 225 ml Output Urine Total 300 ml 500 ml # Bowel Movements 3 2 Laboratory Tests 05/31/17 05:50: White Blood Count 5.1, Red Blood Count 4.56, Hemoglobin 12.9, Hematocrit 39.9, Mean Corpuscular Volume 88, Mean Corpuscular Hemoglobin 28.3, Mean Corpuscular Hemoglobin Concent 32.3, Red Cell Distribution Width 15.3H, Platelet Count 288, Mean Platelet Volume 7.1, Neutrophils (%) (Auto) 62.7, Lymphocytes (%) (Auto) 27.0, Monocytes (%) (Auto) 7.6, Eosinophils (%) (Auto) 2.1, Basophils (%) (Auto ) 0.7, Sodium Level 146H, Potassium Level 3.7, Chloride Level 114H, Carbon Dioxide Level 26, Anion Gap 7, Blood Urea Nitrogen 13, Creatinine 1.1, Estimat Glomerular Filtration Rate , Glucose Level 110H, Calcium Level 7.5L Height (Feet): 5 Height (Inches): 6.00 Weight (Pounds): 130 Objective General: alert, cooperative, no distress, appears stated age Head: normocephalic, without obvious abnormality, atraumatic Eyes: conjunctivae/corneas clear. PERRL, EOM's intact Throat: lips, mucosa, and tongue normal. MMM Neck: supple, symmetrical, trachea midline, and no JVD Lungs: clear to auscultation bilaterally Heart: regular rate and rhythm, S1, S2 normal, no murmur, click, rub or gallop Abdomen: soft, non-tender, non-distended, bowel sounds normal; no masses or organomegaly Extremities: extremities normal, atraumatic, no cyanosis or edema Pulses: 2+ and symmetric Skin: skin color, texture, turgor normal; no rashes or lesions Neurologic: grossly normal, no focal deficits except for dysarthria, quadriparesis Agapito Butler M.D. May 31, 2017 13:15
--- NOTE | 2017-05-31 14:18 | Consultation ---
Consult Note Consult Note GYNECOLOGY CONSULT NOTE CC: Consulted for possible vaginal bleeding and uterine mass noted in pelvic US HPI: Marcelle is a 71yo female admitted for AMS. History of A Fib, CVA, on anticoagulation (now stopped 2/2 bleeding), and h/o seizure d/o and encephalopathy. While admitted, patient underwent traumatic pruitt catheter placement and subsequently developed hematuria and possible vaginal bleeding. No known history of vaginal bleeding prior to now. Ultrasound was performed and she was noted to have a calcified mass on her uterus, most likely a fibroid. No other issues. PMH: as above PSH: unknown Meds: see chart Allergies: NKDA Soc Hx: lives in a long term, son (Isiah Marquez) gave consent to see patient and perform DRAINAGE ENGINEER exam\ Vitals: BP 150/94, P 75, RR 20, Tlast 96.9, O2 95%RA Exam: HEENT: dry mucous membranes, NGT in place, OP clear Neck: no masses or thyromegaly appreciated CV: regular rate Pulm: no increased work of breathing, mild audible wheezes grossly Abd: soft Pelvic: blood noted at the perineum, pruitt catheter in place, digital exam revealed blood-tinged mucus however difficult to ascertain if bleeding is truly vaginal since patient has been bleeding from urethra since traumatic pruitt insertion. patient did not tolerate exam well. Ext: difficulty with range of motion due to immobility and age Labs: CBC: 5.1>12.9/39.9<288 Imaging: Comparison: No prior pelvic ultrasound available for comparison. Correlation made to CT of the abdomen and pelvis 11/23/2016 Findings: A total of 9 images were obtained. The urinary bladder is decompressed , limiting its evaluation. There is suggestion of a uterine mass. This may possibly related to a fibroid as the uterus is noted to be somewhat lobular with coarse calcifications on the prior CT scan however evaluation is nondiagnostic. Impression: Incomplete, nondiagnostic evaluation. Possible uterine mass may represent a fibroid as the uterus was noted to be lobular in contour with coarse calcifications on the prior CT 11/23/2016. Nondiagnostic evaluation of the endometrium. Ovaries not seen. The possibility of gynecologic malignancy is not excluded. Repeat exam or contrast-enhanced CT or MR recommended. Consider direct visualization/ gynecologic exam. Assessment/Plan 71yo with h/o A Fib, CVA, encephalopathy, seizure d/o, anticoagulation stopped, presenting with possible vaginal bleeding after traumatic pruitt catheter placement # Possible postmenopausal bleeding vs bleeding s/p pruitt insertion - Difficult to identify source of bleeding given significance of bleeding s/p traumatic pruitt catheter insertion - Ultrasound non-diagnostic, possible fibroid - No prior history of vaginal bleeding - Agree with discontinuation of anticoagulation - If bleeding resolves, can continue to manage conservatively - If bleeding recurs, or if significant drop in H/H, recommend CT AP. - The only way to rule out uterine pathology is with endometrial biopsy (EMB). Patient would not tolerate bedside/outpatient EMB due to extreme discomfort, thus the only way to obtain an endometrial sample would be in the OR and patient is a high risk surgical candidate - If uterine malignancy is present, the only way to cure disease would be hysterectomy # Medical comorbidities - managed per primary team # Dispo - per primary team Thank you for this interesting consult. Feel free to contact me with any questions or concerns. Signed: MD Ari Tineo Carla M.D. May 31, 2017 14:18
--- NOTE | 2017-05-31 14:25 | Urology Progress Note ---
Assessment/Plan Assessment/Plan 1. Urinary retention. 2. Hematuria. 3. Proteinuria. 4. Urinary tract infection. 5. Neurogenic bladder. 6. Urethral stricture. keep pruitt, DO NOT REMOVE hand irrigated, position is satisfactory hand irrigate PRN abx as ordered, adjust per ID consider renal u/s cysto later Subjective Allergies: Coded Allergies: No Known Allergies (Unverified , 04/30/16) Subjective all noted, looks comfortable, new pruitt draining fair Objective Last 24 Hour Vital Signs Date Time Temp Pulse Resp B/P (MAP) Pulse Ox O2 Delivery O2 Flow Rate FiO2 05/31/17 10:35 75 150/94 05/31/17 09:48 150/94 05/31/17 08:00 96.9 67 20 150/94 95 05/31/17 04:00 83 05/31/17 04:00 97.9 75 20 123/97 97 05/31/17 00:00 97.0 95 16 142/102 97 05/31/17 00:00 74 05/30/17 22:18 80 158/81 05/30/17 20:00 82 05/30/17 20:00 97.0 80 14 158/81 90 05/30/17 17:56 138/95 05/30/17 16:00 97.0 76 20 138/95 94 05/30/17 16:00 82 Intake and Output 05/30/17 05/31/17 19:00 07:00 Intake Total 225 ml Output Total 300 ml 500 ml Balance -300 ml -275 ml IV Total 225 ml Output Urine Total 300 ml 500 ml # Bowel Movements 3 2 Microbiology Date/Time Source Procedure Growth Status 05/26/17 10:45 Blood Blood Culture - Preliminary NO GROWTH AFTER 4 DAYS Resulted 05/26/17 13:00 Nasal Nares MRSA Culture - Final NO METHICILLIN RESISTANT STAPH AUREUS... Complete 05/28/17 11:40 Stool Clostridium difficile Toxin Assay - Final Complete 05/26/17 10:45 Urine,Clean Catch Urine Culture - Final Enterococcus Faecium - Vre Anh Albicans Complete 05/26/17 13:00 Rectum VRE Culture - Final Enterococcus Faecium - Vre Complete Current Medications Medications (Trade) Dose Ordered Sig/Renea Route PRN Reason Start Time Stop Time Status Last Admin Dose Admin Acetaminophen (Tylenol) 650 mg Q4H PRN ORAL Mild Pain/Temp > 100.5 05/27/17 07:45 06/26/17 07:44 Aspirin (ASA) 81 mg DAILY NG 05/27/17 16:00 06/26/17 15:59 05/29/17 10:12 Atorvastatin Calcium (Lipitor) 80 mg BEDTIME NG 05/27/17 21:00 06/26/17 20:59 05/30/17 22:17 Fluconazole (Diflucan) 100 mg DAILY ORAL 05/30/17 18:00 06/06/17 17:59 05/31/17 09:49 Folic Acid (Folate) 1 mg DAILY NG 05/28/17 09:00 06/27/17 08:59 05/31/17 09:47 Hydralazine HCl (Apresoline) 25 mg TWICE A DAY GT 05/28/17 18:00 06/27/17 17:59 05/31/17 09:48 Levetiracetam (Keppra) 750 mg Q12HR NG 05/29/17 21:00 06/28/17 20:59 05/31/17 09:49 Linezolid (Zyvox) 600 mg EVERY 12 HOURS ORAL 05/30/17 18:00 06/04/17 17:59 05/31/17 09:49 Metoprolol Tartrate (Lopressor) 50 mg Q12HR NG 05/27/17 21:00 06/26/17 20:59 05/31/17 10:35 Metronidazole (Flagyl) 500 mg Q8HR NG 05/29/17 09:00 06/05/17 08:59 05/31/17 13:15 Mirtazapine (Remeron) 15 mg BEDTIME NG 05/27/17 21:00 06/26/17 20:59 05/30/17 22:17 Paroxetine HCl (Paxil) 10 mg BEDTIME NG 05/28/17 21:00 06/27/17 08:59 05/30/17 22:17 Sodium Chloride 1,000 ml @ 75 mls/hr [id number] IV 05/27/17 16:00 06/26/17 15:59 05/31/17 13:24 Sulfasalazine (Azulfidine) 500 mg EVERY 6 HOURS NG 05/27/17 18:00 06/26/17 17:59 05/31/17 13:15 Tamsulosin HCl (Flomax) 0.4 mg DAILY ORAL 05/28/17 10:00 06/27/17 09:59 05/31/17 09:47 Tramadol HCl (Ultram) 50 mg Q4H PRN NG Moderate Pain (Pain Scale 4-6) 05/27/17 15:45 06/03/17 15:44 Laboratory Tests 05/31/17 05:50: White Blood Count 5.1, Red Blood Count 4.56, Hemoglobin 12.9, Hematocrit 39.9, Mean Corpuscular Volume 88, Mean Corpuscular Hemoglobin 28.3, Mean Corpuscular Hemoglobin Concent 32.3, Red Cell Distribution Width 15.3H, Platelet Count 288, Mean Platelet Volume 7.1, Neutrophils (%) (Auto) 62.7, Lymphocytes (%) (Auto) 27.0, Monocytes (%) (Auto) 7.6, Eosinophils (%) (Auto) 2.1, Basophils (%) (Auto ) 0.7, Sodium Level 146H, Potassium Level 3.7, Chloride Level 114H, Carbon Dioxide Level 26, Anion Gap 7, Blood Urea Nitrogen 13, Creatinine 1.1, Estimat Glomerular Filtration Rate , Glucose Level 110H, Calcium Level 7.5L Height (Feet): 5 Height (Inches): 6.00 Weight (Pounds): 130 Objective exam stable, urine dark michelle pelvic u/s noted JOHS PENNINGTON May 31, 2017 14:25
--- NOTE | 2017-05-31 14:50 | Neurology Progress Note ---
Interim History Interim History Interim History Ms. Marquez feels better today. She has no pain today. She is still producing bloody urine. Her speech is clearer. She has been seizure-free. She continues to be cognitively impoverished. She continues to be motorically challenged. She denies any new neurologic symptoms. She was just seen by Dr Tami Chapman in gynecologic consultation for possible vaginal bleeding and a uterine mass noted on pelvic US. Review of Systems Neuro Review of Systems Benign. Objective Physical Exam Last Vital Signs Date Time Temp Pulse Resp B/P (MAP) Pulse Ox O2 Delivery O2 Flow Rate FiO2 05/31/17 10:35 75 150/94 05/31/17 08:00 96.9 20 95 05/29/17 16:00 Room Air Laboratory Tests Test 05/31/17 05:50 White Blood Count 5.1 K/UL (4.8-10.8) Red Blood Count 4.56 M/UL (4.20-5.40) Hemoglobin 12.9 G/DL (12.0-16.0) Hematocrit 39.9 % (37.0-47.0) Mean Corpuscular Volume 88 FL (80-99) Mean Corpuscular Hemoglobin 28.3 PG (27.0-31.0) Mean Corpuscular Hemoglobin Concent 32.3 G/DL (32.0-36.0) Red Cell Distribution Width 15.3 % (11.6-14.8) H Platelet Count 288 K/UL (150-450) Mean Platelet Volume 7.1 FL (6.5-10.1) Neutrophils (%) (Auto) 62.7 % (45.0-75.0) Lymphocytes (%) (Auto) 27.0 % (20.0-45.0) Monocytes (%) (Auto) 7.6 % (1.0-10.0) Eosinophils (%) (Auto) 2.1 % (0.0-3.0) Basophils (%) (Auto) 0.7 % (0.0-2.0) Sodium Level 146 MMOL/L (136-145) H Potassium Level 3.7 MMOL/L (3.5-5.1) Chloride Level 114 MMOL/L (98-107) H Carbon Dioxide Level 26 MMOL/L (21-32) Anion Gap 7 mmol/L (5-15) Blood Urea Nitrogen 13 mg/dL (7-18) Creatinine 1.1 MG/DL (0.55-1.30) Estimat Glomerular Filtration Rate mL/min (>60) Glucose Level 110 MG/DL (74-106) H Calcium Level 7.5 MG/DL (8.5-10.1) L Neurologic Exam Objective PHYSICAL EXAMINATION: GENERAL: She is a well-developed, well-nourished, pleasant, black lady, lying in bed, in no acute distress. HEAD: Normocephalic and atraumatic. NECK: No neck rigidity was observed. EENT: Benign. NEUROLOGIC EXAMINATION: MENTAL STATUS EXAMINATION: She was awake and alert. She was oriented to self and "[facility]" [facility] only. She was able to repeat 3/3 words, but was unable to remember any of them in 1 minute and 3 minutes. She was able to remember Trump when the first name was given to her. Further mental status testing was quite impossible because of her inability to cooperate. SPEECH: She had moderate dysarthria. LANGUAGE: She had problems with comprehension and expression of language. CRANIAL NERVE EXAMINATION: II: She had a possible right visual field deficit to threat. She was unable to cooperate for confrontation testing. III, IV & : External ocular movements are full and the pupils 3 mm in diameter, equal, round, regular, and reactive sluggishly to light. V: She had normal facial sensations and the temporales, masseters, and pterygoids functioned normally. VII: She had a right greater than left seventh central facial paresis. VIII: She seemed to be able to hear and had no nystagmus. IX: The palate moved symmetrically on phonation. X: She had no hoarseness of voice. XI: The sternocleidomastoids and trapezii functioned normally. XII: The tongue was in the midline without any fasciculations or atrophy. MOTOR SYSTEM: The tone was increased in all four extremities with a mild degree of spasticity. Examination of muscle mass revealed generalized muscle wasting. Examination of power was exceedingly difficult to perform because of varying degrees of cooperation. 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 SENSORY EXAMINATION: She responded appropriately to light touch. She was unable to cooperate for other sensory modalities. REFLEXES: Trace+ and bilaterally symmetrical at the biceps, triceps, brachioradialis, and knees, 0 at both ankles. The plantar responses were extensor bilaterally. COORDINATION, STANCE & GAIT: Could not be tested. Impression/Recommendations Diagnostic Impression 1. Ms. Marcelle Marquez is a 71-year-old, right-handed, black lady, who does have a past history of depression, hypertension, dyslipidemia, cerebrovascular disease with multiple strokes, and chronic anticoagulation for atrial fibrillation, who was hospitalized after she had two generalized tonic-clonic seizures in her detention. On being evaluated in the emergency room, she was found to have a significant urinary tract infection. 2. She is less encephalopathic. She continues to be cognitively impoverished. She continues to be motorically challenged. She has been seizure-free. She denies any pain. 3. On neurological examination, at this time, she does demonstrate problems with orientation, recent and remote memory, higher cognitive function, and language. 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 4. The CT scan of the brain reveals chronic infarcts involving the right temporal lobe, left occipital lobe, left thalamus, and basal ganglia. 5. Her laboratory data revealed that the lactic acid was elevated to 6.1. Her BUN was elevated to 26 with a creatinine of 1.4. Her proBNP was elevated to 12, 677. She was hypoalbuminemic with albumin of 2.3 and her urinalysis revealed 3 + leukocyte esterase, 30 to 40 red blood cells, and 20 to 30 white blood cells per high-power field. 6. The MRI of the brain done on 05/28/17 revealed no acute pathology. Multiple old infarcts were seen. 7. The EEG revealed a moderate encephalopathy and a C4 (Right Central) epileptogenic focus. 8. 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 Recommendations 1. Continue present management. 2. Continue Keppra 750 mg q.12 h. for seizure prophylaxis. 3. The patient's urinary tract infection should be treated aggressively. 4. Observe closely. 5. Deep Submergence Vehicle Operator management as per Dr. Chapman. Aleksander Gomez M.D., M.S.P.H. ALEKSANDER GOMEZ May 31, 2017 14:50
[2017-05-31 16:00] VITALS: BP 137/97
[2017-05-31] MEDS ORDERED: Sterile Water For Irrig 2000ml IRRIG ONE (16:11)
[2017-05-31] MEDS ORDERED: Tubing IV Secondary IV ONE (16:11)
[2017-05-31] MEDS ORDERED: NS 500ML ONE (16:11)
[2017-05-31] MEDS ORDERED: Sterile Water Irrig 1000ml IRRIG ONE (16:11)
[2017-05-31] MEDS ORDERED: D5 1/2NS 1000ml IV ONE (16:11)
[2017-05-31 20:00] VITALS: BP 139/84
[2017-05-31] MEDS: PARoxetine 20mg tab NG SCH (21:00)
[2017-05-31] MEDS: Atorvastatin 80mg tab NG SCH (21:00)
[2017-06-01] VITALS: BP 140/89
[2017-06-01 04:00] VITALS: BP 151/102
[2017-06-01] MEDS: metroNIDAZOLE 500mg tab NG SCH ×3 (06:30→22:00)
[2017-06-01] MEDS: SulfASALAZine 500MG tab NG SCH ×4 (06:30→17:05)
[2017-06-01 07:47] LABS: ANION GAP 9 mmol/L (5-15); BLOOD UREA NITROGEN 12 mg/dL (7-18); CALCIUM 7.4 MG/DL (8.5-10.1); CARBON DIOXIDE 22 MMOL/L (21-32); CHLORIDE 113 MMOL/L (98-107); CREATININE 0.9 MG/DL (0.55-1.30); POTASSIUM 3.7 MMOL/L (3.5-5.1); SODIUM 144 MMOL/L (136-145)
[2017-06-01 07:49] LABS: BASOPHILS % (AUTO) 0.7 % (0.0-2.0); EOSINOPHILS % (AUTO) 5.5 % (0.0-3.0); HEMATOCRIT 38.6 % (37.0-47.0); HEMOGLOBIN 12.2 G/DL (12.0-16.0); LYMPHOCYTES % (AUTO) 28.7 % (20.0-45.0); MEAN CORPUSCULAR VOLUME 89 FL (80-99); MONOCYTES % (AUTO) 8.3 % (1.0-10.0); NEUTROPHILS % (AUTO) 56.7 % (45.0-75.0); PLATELET COUNT 264 K/UL (150-450); RED BLOOD COUNT 4.35 M/UL (4.20-5.40); RED CELL DISTRIBUTION WIDTH 15.6 % (11.6-14.8)
[2017-06-01 08:00] VITALS: BP 172/115
[2017-06-01] MEDS: Aspirin Baby 81mg NG SCH (08:40)
[2017-06-01] MEDS: Fluconazole 100mg tab ORAL SCH (08:41)
[2017-06-01] MEDS: HydrALAZINE 25mg tab GT SCH ×2 (08:41→17:05)
[2017-06-01] MEDS: Tamsulosin 0.4mg cap ORAL SCH (08:41)
[2017-06-01] MEDS: Metoprolol Tartrate 50mg tab NG SCH ×2 (08:42→22:00)
--- NOTE | 2017-06-01 11:50 | Neurology Progress Note ---
Interim History Interim History Interim History Ms. Marquez feels sleepy. She has no pain today. Her urine has been clearing up. Her speech is more dysarthric. She has been seizure-free. She continues to be cognitively impoverished. She continues to be motorically challenged. She denies any new neurologic symptoms. Review of Systems Neuro Review of Systems Benign. Objective Physical Exam Last Vital Signs Date Time Temp Pulse Resp B/P (MAP) Pulse Ox O2 Delivery O2 Flow Rate FiO2 06/01/17 08:42 77 172/115 06/01/17 08:00 97.0 18 92 Room Air Laboratory Tests Test 06/01/17 05:20 White Blood Count 6.0 K/UL (4.8-10.8) Red Blood Count 4.35 M/UL (4.20-5.40) Hemoglobin 12.2 G/DL (12.0-16.0) Hematocrit 38.6 % (37.0-47.0) Mean Corpuscular Volume 89 FL (80-99) Mean Corpuscular Hemoglobin 28.0 PG (27.0-31.0) Mean Corpuscular Hemoglobin Concent 31.6 G/DL (32.0-36.0) L Red Cell Distribution Width 15.6 % (11.6-14.8) H Platelet Count 264 K/UL (150-450) Mean Platelet Volume 7.8 FL (6.5-10.1) Neutrophils (%) (Auto) 56.7 % (45.0-75.0) Lymphocytes (%) (Auto) 28.7 % (20.0-45.0) Monocytes (%) (Auto) 8.3 % (1.0-10.0) Eosinophils (%) (Auto) 5.5 % (0.0-3.0) H Basophils (%) (Auto) 0.7 % (0.0-2.0) Sodium Level 144 MMOL/L (136-145) Potassium Level 3.7 MMOL/L (3.5-5.1) Chloride Level 113 MMOL/L (98-107) H Carbon Dioxide Level 22 MMOL/L (21-32) Anion Gap 9 mmol/L (5-15) Blood Urea Nitrogen 12 mg/dL (7-18) Creatinine 0.9 MG/DL (0.55-1.30) Estimat Glomerular Filtration Rate mL/min (>60) Glucose Level 85 MG/DL (74-106) Calcium Level 7.4 MG/DL (8.5-10.1) L Neurologic Exam Objective PHYSICAL EXAMINATION: GENERAL: She is a well-developed, well-nourished, pleasant, black lady, lying in bed, in no acute distress. HEAD: Normocephalic and atraumatic. NECK: No neck rigidity was observed. EENT: Benign. NEUROLOGIC EXAMINATION: MENTAL STATUS EXAMINATION: She was awake but not alert. She was oriented to self and "[facility] [place] only. She was able to repeat 3/3 words, but was unable to remember any of them in 1 minute and 3 minutes. She was able to remember Trump when the first name was given to her. Further mental status testing was quite impossible because of her inability to cooperate. SPEECH: She had moderate dysarthria. LANGUAGE: She had problems with comprehension and expression of language. CRANIAL NERVE EXAMINATION: II: She had a possible right visual field deficit to threat. She was unable to cooperate for confrontation testing. III, IV & : External ocular movements are full and the pupils 3 mm in diameter, equal, round, regular, and reactive sluggishly to light. V: She had normal facial sensations and the temporales, masseters, and pterygoids functioned normally. VII: She had a right greater than left seventh central facial paresis. VIII: She seemed to be able to hear and had no nystagmus. IX: The palate moved symmetrically on phonation. X: She had no hoarseness of voice. XI: The sternocleidomastoids and trapezii functioned normally. XII: The tongue was in the midline without any fasciculations or atrophy. MOTOR SYSTEM: The tone was increased in all four extremities with a mild degree of spasticity. Examination of muscle mass revealed generalized muscle wasting. Examination of power was exceedingly difficult to perform because of varying degrees of cooperation. 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 SENSORY EXAMINATION: She responded appropriately to light touch. She was unable to cooperate for other sensory modalities. REFLEXES: Trace+ and bilaterally symmetrical at the biceps, triceps, brachioradialis, and knees, 0 at both ankles. The plantar responses were extensor bilaterally. COORDINATION, STANCE & GAIT: Could not be tested. Impression/Recommendations Diagnostic Impression 1. Ms. Marcelle Marquez is a 71-year-old, right-handed, black lady, who does have a past history of depression, hypertension, dyslipidemia, cerebrovascular disease with multiple strokes, and chronic anticoagulation for atrial fibrillation, who was hospitalized after she had two generalized tonic-clonic seizures in her [facility]. On being evaluated in the emergency room, she was found to have a significant urinary tract infection. 2. She is more encephalopathic. She continues to be cognitively impoverished. She continues to be motorically challenged. She has been seizure-free. She denies any pain. 3. On neurological examination, at this time, she does demonstrate problems with orientation, recent and remote memory, higher cognitive function, and language. 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 4. The CT scan of the brain reveals chronic infarcts involving the right temporal lobe, left occipital lobe, left thalamus, and basal ganglia. 5. Her laboratory data revealed that the lactic acid was elevated to 6.1. Her BUN was elevated to 26 with a creatinine of 1.4. Her proBNP was elevated to 12, 677. She was hypoalbuminemic with albumin of 2.3 and her urinalysis revealed 3 + leukocyte esterase, 30 to 40 red blood cells, and 20 to 30 white blood cells per high-power field. 6. The MRI of the brain done on 05/28/17 revealed no acute pathology. Multiple old infarcts were seen. 7. The EEG revealed a moderate encephalopathy and a C4 (Right Central) epileptogenic focus. 8. 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 Recommendations 1. Continue present management. 2. Continue Keppra 750 mg q.12 h. for seizure prophylaxis. 3. The patient's urinary tract infection should be treated aggressively. 4. Observe closely. 5. Switchboard Operator Helper management as per Dr. Chapman. Goran Gomez M.D., M.S.[facility]. GORAN GOMEZ Jun 01, 2017 11:50
[2017-06-01 12:00] VITALS: BP 139/86
--- NOTE | 2017-06-01 12:37 | Cardiac Electrophysiology PN ---
Assessment/Plan Assessment/Plan 1. Atrial fibrillation with rapid ventricular response. In SR Controlled with metoprolol 50 mg b.i.d. Off anticoagulation for hematuria and vaginal bleeding. Head CT showed a suspected subacute infarct in the right posterior temporal and parietal lobe.MRI Brain negative for acute infarct. 2. Hypertension. Continue metoprolol 50 mg b.i.d. and Hydralazine 25 NG bid 3. Subacute cerebrovascular accident. Further evaluation by Dr. Gomez. 4. Seizures, on Keppra. 5. Possible rheumatoid arthritis. The patient is on methotrexate and folic acid. 6. History of sepsis, on meropenem. 7. Dysphagia. NG tube in. PEG pending 8. Hematuria and Vaginal bleeding. Off Eliquis. Dr Soares following 9. C.diff. colitis, vre uti, Recommended by ID on flagyl, zyvox,diflucan DW RN Subjective Subjective In atrial fib with controlled rate in 70-80s.NG tube in Objective Last 24 Hour Vital Signs Date Time Temp Pulse Resp B/P (MAP) Pulse Ox O2 Delivery O2 Flow Rate FiO2 06/01/17 08:42 77 172/115 06/01/17 08:41 172/115 06/01/17 08:00 97.0 76 18 172/115 92 Room Air 06/01/17 04:00 97.6 80 18 151/102 96 Room Air 06/01/17 04:00 68 06/01/17 00:00 97.7 88 18 140/89 98 Nasal Cannula 06/01/17 00:00 65 05/31/17 21:00 90 139/84 05/31/17 20:00 74 05/31/17 20:00 96.4 90 18 139/84 94 Nasal Cannula 05/31/17 17:46 137/97 05/31/17 16:00 96.8 62 20 137/97 93 05/31/17 16:00 59 Intake and Output 05/31/17 06/01/17 19:00 07:00 Intake Total 90 ml Output Total 600 ml 200 ml Balance -600 ml -110 ml Free Water 30 ml Tube Feeding 60 ml Output Urine Total 600 ml 200 ml # Bowel Movements 1 1 Laboratory Tests Test 06/01/17 05:20 White Blood Count 6.0 K/UL (4.8-10.8) Red Blood Count 4.35 M/UL (4.20-5.40) Hemoglobin 12.2 G/DL (12.0-16.0) Hematocrit 38.6 % (37.0-47.0) Mean Corpuscular Volume 89 FL (80-99) Mean Corpuscular Hemoglobin 28.0 PG (27.0-31.0) Mean Corpuscular Hemoglobin Concent 31.6 G/DL (32.0-36.0) L Red Cell Distribution Width 15.6 % (11.6-14.8) H Platelet Count 264 K/UL (150-450) Mean Platelet Volume 7.8 FL (6.5-10.1) Neutrophils (%) (Auto) 56.7 % (45.0-75.0) Lymphocytes (%) (Auto) 28.7 % (20.0-45.0) Monocytes (%) (Auto) 8.3 % (1.0-10.0) Eosinophils (%) (Auto) 5.5 % (0.0-3.0) H Basophils (%) (Auto) 0.7 % (0.0-2.0) Sodium Level 144 MMOL/L (136-145) Potassium Level 3.7 MMOL/L (3.5-5.1) Chloride Level 113 MMOL/L (98-107) H Carbon Dioxide Level 22 MMOL/L (21-32) Anion Gap 9 mmol/L (5-15) Blood Urea Nitrogen 12 mg/dL (7-18) Creatinine 0.9 MG/DL (0.55-1.30) Estimat Glomerular Filtration Rate mL/min (>60) Glucose Level 85 MG/DL (74-106) Calcium Level 7.4 MG/DL (8.5-10.1) L Objective HEAD AND NECK: No JVD. NG-tube in LUNGS: Decreased breath sounds. CARDIOVASCULAR: Irregular S1 and S2 with no gallop. ABDOMEN: Soft. EXTREMITIES: No pitting edema. BRODY AGUILAR Jun 01, 2017 12:37
[2017-06-01] MEDS ORDERED: Sterile Water Irrig 1000ml IRRIG ONE (14:47)
[2017-06-01 16:00] VITALS: BP 154/97
--- NOTE | 2017-06-01 16:21 | Infectious Diseases Prog Note ---
Assessment/Plan Assessment/Plan ASSESSMENT AND PLAN: 1. c.diff. colitis, vre uti, ? fungal uti, sepsis, uti, leukocytosis resolved, fevers resolved, sz, ams, chest x-ray negative - flagyl x 8 days - zyvox x 5 days - diflucan x 3 days - watch labs 2. hyperlipidemia. 3. Elevated creatinine, anemia 4. Possible chronic renal failure. 5. Cerebrovascular accident. 6. hypertension 7. The patient is on methotrexate 8. atrial fibrillation 9. Depression, anxiety 10. Dementia. 11. Dysphagia. 12. Gastroesophageal reflux disease. 13. Decrease in walking. 14. Weakness. 15. Cerebral infarction. 16. History of urinary tract infection. 17. Dementia per the records. 18. Past medical history noted. 19. No known allergies. 20. Social history negative. 21. Family history is noncontributory. 22. MAR was noted. 23. Case discussed with RN. 24. Case discussed with Dr. Altman 25. vre colonization and isolation 26. allergies - negative 27. vre colonization and isolation 28. skin care per protocol Subjective Constitutional: Reports: fatigue, other - lethargic, Denies: fever Respiratory: Denies: shortness of breath Gastrointestinal/Abdominal: Denies: nausea, vomiting, diarrhea Genitourinary: Reports: other - + pruitt Neurologic: Denies: headache Psychiatric: Denies: depression Skin: Denies: rash Hematologic: Denies: bleeding Musculoskeletal: Denies: pain Allergies: Coded Allergies: No Known Allergies (Unverified , 04/30/16) Objective Vital Signs Last 24 Hour Vital Signs Date Time Temp Pulse Resp B/P (MAP) Pulse Ox O2 Delivery O2 Flow Rate FiO2 06/01/17 12:00 98.0 79 18 139/86 95 Room Air 06/01/17 12:00 64 06/01/17 08:42 77 172/115 06/01/17 08:41 172/115 06/01/17 08:00 97.0 76 18 172/115 92 Room Air 06/01/17 08:00 72 06/01/17 04:00 97.6 80 18 151/102 96 Room Air 06/01/17 04:00 68 06/01/17 00:00 97.7 88 18 140/89 98 Nasal Cannula 06/01/17 00:00 65 05/31/17 21:00 90 139/84 1231/17 20:00 74 05/31/17 20:00 96.4 90 18 139/84 94 Nasal Cannula 05/31/17 17:46 137/97 Height (Feet): 5 Height (Inches): 6.00 Weight (Pounds): 130 General Appearance: no acute distress HEENT: normocephalic, atraumatic, anicteric, mucous membranes moist, EOMI, supple, no JVD Respiratory/Chest: chest wall non-tender, normal breath sounds, no respiratory distress, no accessory muscle use Cardiovascular: normal rate, regular rhythm, no gallop/murmur, no JVD Abdomen: normal bowel sounds, soft, non tender, no organomegaly, non distended Genitourinary: other Extremities: no cyanosis Skin: no rash, other - wounds noted 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 Complete 05/28/17 11:40 Stool Clostridium difficile Toxin Assay - Final Complete 05/26/17 10:45 Urine,Clean Catch Urine Culture - Final Enterococcus Faecium - Vre Anh Albicans Complete 05/26/17 13:00 Rectum VRE Culture - Final Enterococcus Faecium - Vre Complete Laboratory Tests Test 06/01/17 05:20 White Blood Count 6.0 K/UL (4.8-10.8) Red Blood Count 4.35 M/UL (4.20-5.40) Hemoglobin 12.2 G/DL (12.0-16.0) Hematocrit 38.6 % (37.0-47.0) Mean Corpuscular Volume 89 FL (80-99) Mean Corpuscular Hemoglobin 28.0 PG (27.0-31.0) Mean Corpuscular Hemoglobin Concent 31.6 G/DL (32.0-36.0) L Red Cell Distribution Width 15.6 % (11.6-14.8) H Platelet Count 264 K/UL (150-450) Mean Platelet Volume 7.8 FL (6.5-10.1) Neutrophils (%) (Auto) 56.7 % (45.0-75.0) Lymphocytes (%) (Auto) 28.7 % (20.0-45.0) Monocytes (%) (Auto) 8.3 % (1.0-10.0) Eosinophils (%) (Auto) 5.5 % (0.0-3.0) H Basophils (%) (Auto) 0.7 % (0.0-2.0) Sodium Level 144 MMOL/L (136-145) Potassium Level 3.7 MMOL/L (3.5-5.1) Chloride Level 113 MMOL/L (98-107) H Carbon Dioxide Level 22 MMOL/L (21-32) Anion Gap 9 mmol/L (5-15) Blood Urea Nitrogen 12 mg/dL (7-18) Creatinine 0.9 MG/DL (0.55-1.30) Estimat Glomerular Filtration Rate mL/min (>60) Glucose Level 85 MG/DL (74-106) Calcium Level 7.4 MG/DL (8.5-10.1) L Current Medications Medications (Trade) Dose Ordered Sig/Renea Route PRN Reason Start Time Stop Time Status Last Admin Dose Admin Acetaminophen (Tylenol) 650 mg Q4H PRN ORAL Mild Pain/Temp > 100.5 05/27/17 07:45 06/26/17 07:44 Aspirin (ASA) 81 mg DAILY NG 05/27/17 16:00 06/26/17 15:59 06/01/17 08:40 Atorvastatin Calcium (Lipitor) 80 mg BEDTIME NG 05/27/17 21:00 06/26/17 20:59 05/31/17 21:00 Fluconazole (Diflucan) 100 mg DAILY GT 06/02/17 09:00 06/06/17 17:59 Folic Acid (Folate) 1 mg DAILY NG 05/28/17 09:00 06/27/17 08:59 06/01/17 08:41 Hydralazine HCl (Apresoline) 25 mg TWICE A DAY GT 05/28/17 18:00 06/27/17 17:59 06/01/17 08:41 Levetiracetam (Keppra) 750 mg Q12HR NG 05/29/17 21:00 06/28/17 20:59 06/01/17 08:41 Linezolid (Zyvox) 600 mg EVERY 12 HOURS GT 06/01/17 21:00 06/04/17 17:59 Metoprolol Tartrate (Lopressor) 50 mg Q12HR NG 05/27/17 21:00 06/26/17 20:59 06/01/17 08:42 Metronidazole (Flagyl) 500 mg Q8HR NG 05/29/17 09:00 06/05/17 08:59 06/01/17 14:03 Mirtazapine (Remeron) 15 mg BEDTIME NG 05/27/17 21:00 06/26/17 20:59 05/31/17 21:00 Paroxetine HCl (Paxil) 10 mg BEDTIME NG 05/28/17 21:00 06/27/17 08:59 05/31/17 21:00 Sodium Chloride 1,000 ml @ 75 mls/hr [id number] IV 05/27/17 16:00 06/26/17 15:59 06/01/17 16:10 Sulfasalazine (Azulfidine) 500 mg EVERY 6 HOURS NG 05/27/17 18:00 06/26/17 17:59 06/01/17 11:33 Tamsulosin HCl (Flomax) 0.4 mg DAILY ORAL 05/28/17 10:00 06/27/17 09:59 06/01/17 08:41 Tramadol HCl (Ultram) 50 mg Q4H PRN NG Moderate Pain (Pain Scale 4-6) 05/27/17 15:45 06/03/17 15:44 AMPARO HARRISON Jun 01, 2017 16:21
--- NOTE | 2017-06-01 18:25 | General Progress Note ---
Assessment/Plan Problem List: (1) Seizure disorder ICD Codes: G40.909 - Epilepsy, unspecified, not intractable, without status epilepticus SNOMED: 885471354 (2) Altered mental status ICD Codes: R41.82 - Altered mental status, unspecified SNOMED: 118051555 (3) CVA (cerebral vascular accident) ICD Codes: I63.9 - Cerebral infarction, unspecified SNOMED: 776395194 (4) HLD (hyperlipidemia) ICD Codes: E78.5 - Hyperlipidemia, unspecified SNOMED: 52421233 (5) lives at snf (6) Seizure ICD Codes: R56.9 - Unspecified convulsions SNOMED: 38256645 (7) Lactic acid acidosis ICD Codes: E87.2 - Acidosis SNOMED: 74778049 (8) C. difficile colitis ICD Codes: A04.72 - Enterocolitis due to Clostridium difficile, not specified as recurrent SNOMED: 289798505 (9) Atrial fibrillation with RVR ICD Codes: I48.91 - Unspecified atrial fibrillation SNOMED: 339012669880288 (10) Gross hematuria ICD Codes: R31.0 - Gross hematuria SNOMED: 354238112 (11) Dysphagia ICD Codes: R13.10 - Dysphagia, unspecified SNOMED: 64929414, 341416519 (12) Hypernatremia ICD Codes: E87.0 - Hyperosmolality and hypernatremia SNOMED: 95643368 (13) Acute blood loss anemia ICD Codes: D62 - Acute posthemorrhagic anemia SNOMED: 619522961 (14) Vaginal bleeding ICD Codes: N93.9 - Abnormal uterine and vaginal bleeding, unspecified SNOMED: 098612826, 393481133 (15) Severe sepsis ICD Codes: A41.9 - Sepsis, unspecified organism; R65.20 - Severe sepsis without septic shock SNOMED: 39754947 (16) Dementia ICD Codes: F03.90 - Unspecified dementia without behavioral disturbance SNOMED: 45960078 (17) Bacteremia ICD Codes: R78.81 - Bacteremia SNOMED: 5663078 (18) Depression ICD Codes: F32.9 - Major depressive disorder, single episode, unspecified SNOMED: 55806740 (19) CHF (congestive heart failure) ICD Codes: I50.9 - Heart failure, unspecified SNOMED: 11257503 (20) UTI (urinary tract infection) ICD Codes: N39.0 - Urinary tract infection, site not specified SNOMED: 20146046 (21) HTN (hypertension) ICD Codes: I10 - Essential (primary) hypertension SNOMED: 84199416 (22) Elevated troponin ICD Codes: R74.8 - Abnormal levels of other serum enzymes SNOMED: 843486138, 641724575 (23) Toxic metabolic encephalopathy ICD Codes: G92 - Toxic encephalopathy SNOMED: 046647808 (24) Atrial fibrillation ICD Codes: I48.91 - Unspecified atrial fibrillation SNOMED: 14017265 (25) Acute kidney injury ICD Codes: N17.9 - Acute kidney failure, unspecified SNOMED: 95184658 Status: stable Assessment/Plan Neurology and cardiology consulted. appreciate recs F/u MRI brain --> multiple old infarcts F/u EEG --> shows an epileptic focus Increased keppra to 750mg BID Neuro checks Cont ASA, statin F/u TTE --> EF 55% Cont MTP NPO per swallow eval NGT placed for feeds and meds (son agreed). D/w son who would like to proceed w / G tube. GI consulted w/ likely plan for G tube on Thursday. Eliquis held since 05/29 ID consulted Cont linezolid, diflucan and flagyl per ID F/u cultures Urology consulted given hematuria --> pruitt reinserted correctly. continue to hold eliquis at this time. 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 If bleeding recurs despite correct placement of pruitt, consider CT a/p as ultrasound is non-diagnostic of questionable fibroids vs. malignancy. appreciate recs U/S pelvis was limited but possible uterine mass vs fibroid Trend CBC PT/OT/ST eval DC planning back to SNF once G tube in DVT Prophylaxis: SCD, Eliquis Code Status: Full Hospital Classification Declaration: Based on this initial evaluation, and depending on the patient's clinical course, I anticipate that this patient will require hospitalization for 1-2 days for hematuria and close respiratory/ hemodynamic monitoring. Disposition: Once the patient is stable to leave the hospital, I anticipate the patient will likely be discharged to the following environment: back to SNF Discussed with patient/family, nursing staff, SW/NICOLLE, ID, urology regarding clinical status, treatment course, and disposition planning. D/w leak patcher re vaginal bleeding. D/w urology re hematuria. D/w GI re G tube Time of note may not reflect time of encounter. Subjective Date patient seen: Jun 01, 2017 Allergies: Coded Allergies: No Known Allergies (Unverified , 04/30/16) Subjective seen by urology and patient's pruitt was noted to be in the vagina. Pruitt reinserted in the bladder by urology. Urine with gross hematuria seen by AIRCRAFT COMMUNICATOR stable, on NG tube feeds Objective Last 24 Hour Vital Signs Date Time Temp Pulse Resp B/P (MAP) Pulse Ox O2 Delivery O2 Flow Rate FiO2 06/01/17 17:05 154/97 06/01/17 16:00 98.5 83 18 154/97 92 Room Air 06/01/17 12:00 98.0 79 18 139/86 95 Room Air 06/01/17 12:00 64 06/01/17 08:42 77 172/115 06/01/17 08:41 172/115 06/01/17 08:00 97.0 76 18 172/115 92 Room Air 06/01/17 08:00 72 06/01/17 04:00 97.6 80 18 151/102 96 Room Air 06/01/17 04:00 68 06/01/17 00:00 97.7 88 18 140/89 98 Nasal Cannula 06/01/17 00:00 65 05/31/17 21:00 90 139/84 05/31/17 20:00 74 05/31/17 20:00 96.4 90 18 139/84 94 Nasal Cannula Intake and Output 05/31/17 06/01/17 19:00 07:00 Intake Total 165 ml Output Total 600 ml 200 ml Balance -600 ml -35 ml Free Water 30 ml IV Total 75 ml Tube Feeding 60 ml Output Urine Total 600 ml 200 ml # Bowel Movements 1 1 Laboratory Tests 06/01/17 05:20: White Blood Count 6.0, Red Blood Count 4.35, Hemoglobin 12.2, Hematocrit 38.6, Mean Corpuscular Volume 89, Mean Corpuscular Hemoglobin 28.0, Mean Corpuscular Hemoglobin Concent 31.6L, Red Cell Distribution Width 15.6H, Platelet Count 264 , Mean Platelet Volume 7.8, Neutrophils (%) (Auto) 56.7, Lymphocytes (%) (Auto) 28.7, Monocytes (%) (Auto) 8.3, Eosinophils (%) (Auto) 5.5H, Basophils (%) (Auto ) 0.7, Sodium Level 144, Potassium Level 3.7, Chloride Level 113H, Carbon Dioxide Level 22, Anion Gap 9, Blood Urea Nitrogen 12, Creatinine 0.9, Estimat Glomerular Filtration Rate , Glucose Level 85, Calcium Level 7.4L Height (Feet): 5 Height (Inches): 6.00 Weight (Pounds): 130 General Appearance: no apparent distress EENT: PERRL/EOMI Neck: non-tender, normal alignment, supple Cardiovascular: normal peripheral pulses, normal rate, regular rhythm Respiratory/Chest: chest wall non-tender, lungs clear, normal breath sounds Abdomen: normal bowel sounds, non tender, soft 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 Jun 01, 2017 18:25
[2017-06-01 20:00] VITALS: BP 166/108
--- NOTE | 2017-06-01 20:45 | Urology Progress Note ---
Assessment/Plan Assessment/Plan 1. Urinary retention. 2. Hematuria. 3. Proteinuria. 4. Urinary tract infection. 5. Neurogenic bladder. 6. Urethral stricture. keep pruitt, DO NOT REMOVE hand irrigated, position is satisfactory hand irrigate PRN abx as ordered, adjust per ID consider renal u/s cysto later Subjective Allergies: Coded Allergies: No Known Allergies (Unverified , 04/30/16) Subjective all noted, looks comfortable, new pruitt draining fair Objective Last 24 Hour Vital Signs Date Time Temp Pulse Resp B/P (MAP) Pulse Ox O2 Delivery O2 Flow Rate FiO2 06/01/17 17:05 154/97 06/01/17 16:00 98.5 83 18 154/97 92 Room Air 06/01/17 16:00 64 06/01/17 12:00 98.0 79 18 139/86 95 Room Air 06/01/17 12:00 64 06/01/17 08:42 77 172/115 06/01/17 08:41 172/115 06/01/17 08:00 97.0 76 18 172/115 92 Room Air 06/01/17 08:00 72 06/01/17 04:00 97.6 80 18 151/102 96 Room Air 06/01/17 04:00 68 06/01/17 00:00 97.7 88 18 140/89 98 Nasal Cannula 06/01/17 00:00 65 05/31/17 21:00 90 139/84 Intake and Output 05/31/17 06/01/17 19:00 07:00 Intake Total 165 ml Output Total 600 ml 200 ml Balance -600 ml -35 ml Free Water 30 ml IV Total 75 ml Tube Feeding 60 ml Output Urine Total 600 ml 200 ml # Bowel Movements 1 1 Microbiology Date/Time Source Procedure Growth Status 05/26/17 10:45 Blood Blood Culture - Final NO GROWTH AFTER 5 DAYS Complete 05/26/17 13:00 Nasal Nares MRSA Culture - Final NO METHICILLIN RESISTANT STAPH AUREUS... Complete 05/28/17 11:40 Stool Clostridium difficile Toxin Assay - Final Complete 05/26/17 10:45 Urine,Clean Catch Urine Culture - Final Enterococcus Faecium - Vre Anh Albicans Complete 05/26/17 13:00 Rectum VRE Culture - Final Enterococcus Faecium - Vre Complete Current Medications Medications (Trade) Dose Ordered Sig/Renea Route PRN Reason Start Time Stop Time Status Last Admin Dose Admin Acetaminophen (Tylenol) 650 mg Q4H PRN ORAL Mild Pain/Temp > 100.5 05/27/17 07:45 06/26/17 07:44 Aspirin (ASA) 81 mg DAILY NG 05/27/17 16:00 06/26/17 15:59 06/01/17 08:40 Atorvastatin Calcium (Lipitor) 80 mg BEDTIME NG 05/27/17 21:00 06/26/17 20:59 05/31/17 21:00 Fluconazole (Diflucan) 100 mg DAILY GT 06/02/17 09:00 06/06/17 17:59 Folic Acid (Folate) 1 mg DAILY NG 05/28/17 09:00 06/27/17 08:59 06/01/17 08:41 Hydralazine HCl (Apresoline) 25 mg TWICE A DAY GT 05/28/17 18:00 06/27/17 17:59 06/01/17 17:05 Levetiracetam (Keppra) 750 mg Q12HR NG 05/29/17 21:00 06/28/17 20:59 06/01/17 08:41 Linezolid (Zyvox) 600 mg EVERY 12 HOURS GT 06/01/17 21:00 06/04/17 17:59 Metoprolol Tartrate (Lopressor) 50 mg Q12HR NG 05/27/17 21:00 06/26/17 20:59 06/01/17 08:42 Metronidazole (Flagyl) 500 mg Q8HR NG 05/29/17 09:00 06/05/17 08:59 06/01/17 14:03 Mirtazapine (Remeron) 15 mg BEDTIME NG 05/27/17 21:00 06/26/17 20:59 05/31/17 21:00 Paroxetine HCl (Paxil) 10 mg BEDTIME NG 05/28/17 21:00 06/27/17 08:59 05/31/17 21:00 Sodium Chloride 1,000 ml @ 75 mls/hr [id number] IV 05/27/17 16:00 06/26/17 15:59 06/01/17 16:10 Sulfasalazine (Azulfidine) 500 mg EVERY 6 HOURS NG 05/27/17 18:00 06/26/17 17:59 06/01/17 17:05 Tamsulosin HCl (Flomax) 0.4 mg DAILY ORAL 05/28/17 10:00 06/27/17 09:59 06/01/17 08:41 Tramadol HCl (Ultram) 50 mg Q4H PRN NG Moderate Pain (Pain Scale 4-6) 05/27/17 15:45 06/03/17 15:44 Laboratory Tests 06/01/17 05:20: White Blood Count 6.0, Red Blood Count 4.35, Hemoglobin 12.2, Hematocrit 38.6, Mean Corpuscular Volume 89, Mean Corpuscular Hemoglobin 28.0, Mean Corpuscular Hemoglobin Concent 31.6L, Red Cell Distribution Width 15.6H, Platelet Count 264 , Mean Platelet Volume 7.8, Neutrophils (%) (Auto) 56.7, Lymphocytes (%) (Auto) 28.7, Monocytes (%) (Auto) 8.3, Eosinophils (%) (Auto) 5.5H, Basophils (%) (Auto ) 0.7, Sodium Level 144, Potassium Level 3.7, Chloride Level 113H, Carbon Dioxide Level 22, Anion Gap 9, Blood Urea Nitrogen 12, Creatinine 0.9, Estimat Glomerular Filtration Rate , Glucose Level 85, Calcium Level 7.4L Height (Feet): 5 Height (Inches): 6.00 Weight (Pounds): 130 Objective exam stable, urine clearing, some debris pelvic u/s noted JOSH PENNINGTON Jun 01, 2017 20:45
[2017-06-01] MEDS: PARoxetine 20mg tab NG SCH (22:00)
[2017-06-01] MEDS: Atorvastatin 80mg tab NG SCH (22:00)
--- NOTE | 2017-06-01 22:18 | General Progress Note ---
Assessment/Plan Status: stable, unchanged Assessment/Plan encephalopathy mdd anxiety - paxil hs -cont maria r Subjective Date patient seen: May 30, 2017 Neurologic/Psychiatric: Reports: anxiety, depressed Allergies: Coded Allergies: No Known Allergies (Unverified , 04/30/16) Subjective the pt is more alert min verbal participated in pt. the pt meds are changed. no agitation Objective Last 24 Hour Vital Signs Date Time Temp Pulse Resp B/P (MAP) Pulse Ox O2 Delivery O2 Flow Rate FiO2 06/01/17 20:00 95.9 74 20 166/108 84 Room Air 06/01/17 17:05 154/97 06/01/17 16:00 98.5 83 18 154/97 92 Room Air 06/01/17 16:00 64 06/01/17 12:00 98.0 79 18 139/86 95 Room Air 06/01/17 12:00 64 06/01/17 08:42 77 172/115 06/01/17 08:41 172/115 06/01/17 08:00 97.0 76 18 172/115 92 Room Air 06/01/17 08:00 72 06/01/17 04:00 97.6 80 18 151/102 96 Room Air 06/01/17 04:00 68 06/01/17 00:00 97.7 88 18 140/89 98 Nasal Cannula 06/01/17 00:00 65 Intake and Output 05/31/17 06/01/17 19:00 07:00 Intake Total 165 ml Output Total 600 ml 200 ml Balance -600 ml -35 ml Free Water 30 ml IV Total 75 ml Tube Feeding 60 ml Output Urine Total 600 ml 200 ml # Bowel Movements 1 1 Laboratory Tests 06/01/17 05:20: White Blood Count 6.0, Red Blood Count 4.35, Hemoglobin 12.2, Hematocrit 38.6, Mean Corpuscular Volume 89, Mean Corpuscular Hemoglobin 28.0, Mean Corpuscular Hemoglobin Concent 31.6L, Red Cell Distribution Width 15.6H, Platelet Count 264 , Mean Platelet Volume 7.8, Neutrophils (%) (Auto) 56.7, Lymphocytes (%) (Auto) 28.7, Monocytes (%) (Auto) 8.3, Eosinophils (%) (Auto) 5.5H, Basophils (%) (Auto ) 0.7, Sodium Level 144, Potassium Level 3.7, Chloride Level 113H, Carbon Dioxide Level 22, Anion Gap 9, Blood Urea Nitrogen 12, Creatinine 0.9, Estimat Glomerular Filtration Rate , Glucose Level 85, Calcium Level 7.4L Height (Feet): 5 Height (Inches): 6.00 Weight (Pounds): 130 General Appearance: no apparent distress, alert, confused Neurologic: alert, disoriented, depressed affect Kunal Tse M.D. Jun 01, 2017 22:18
--- NOTE | 2017-06-01 22:19 | Geriatric Progress Note ---
Assessment/Plan Discussed with: patient Subjective Interval Events 05/31/17 Mood/Memory: Reports: prior hx, anxiety, depressed feelings, emotional problems Geriatric Geriatric Last 24 Hour Vital Signs Date Time Temp Pulse Resp B/P (MAP) Pulse Ox O2 Delivery O2 Flow Rate FiO2 06/01/17 20:00 95.9 74 20 166/108 84 Room Air 06/01/17 17:05 154/97 06/01/17 16:00 98.5 83 18 154/97 92 Room Air 06/01/17 16:00 64 06/01/17 12:00 98.0 79 18 139/86 95 Room Air 06/01/17 12:00 64 06/01/17 08:42 77 172/115 06/01/17 08:41 172/115 06/01/17 08:00 97.0 76 18 172/115 92 Room Air 06/01/17 08:00 72 06/01/17 04:00 97.6 80 18 151/102 96 Room Air 06/01/17 04:00 68 06/01/17 00:00 97.7 88 18 140/89 98 Nasal Cannula 06/01/17 00:00 65 Intake and Output 05/31/17 06/01/17 19:00 07:00 Intake Total 165 ml Output Total 600 ml 200 ml Balance -600 ml -35 ml Free Water 30 ml IV Total 75 ml Tube Feeding 60 ml Output Urine Total 600 ml 200 ml # Bowel Movements 1 1 Laboratory Tests Test 06/01/17 05:20 White Blood Count 6.0 K/UL (4.8-10.8) Red Blood Count 4.35 M/UL (4.20-5.40) Hemoglobin 12.2 G/DL (12.0-16.0) Hematocrit 38.6 % (37.0-47.0) Mean Corpuscular Volume 89 FL (80-99) Mean Corpuscular Hemoglobin 28.0 PG (27.0-31.0) Mean Corpuscular Hemoglobin Concent 31.6 G/DL (32.0-36.0) L Red Cell Distribution Width 15.6 % (11.6-14.8) H Platelet Count 264 K/UL (150-450) Mean Platelet Volume 7.8 FL (6.5-10.1) Neutrophils (%) (Auto) 56.7 % (45.0-75.0) Lymphocytes (%) (Auto) 28.7 % (20.0-45.0) Monocytes (%) (Auto) 8.3 % (1.0-10.0) Eosinophils (%) (Auto) 5.5 % (0.0-3.0) H Basophils (%) (Auto) 0.7 % (0.0-2.0) Sodium Level 144 MMOL/L (136-145) Potassium Level 3.7 MMOL/L (3.5-5.1) Chloride Level 113 MMOL/L (98-107) H Carbon Dioxide Level 22 MMOL/L (21-32) Anion Gap 9 mmol/L (5-15) Blood Urea Nitrogen 12 mg/dL (7-18) Creatinine 0.9 MG/DL (0.55-1.30) Estimat Glomerular Filtration Rate mL/min (>60) Glucose Level 85 MG/DL (74-106) Calcium Level 7.4 MG/DL (8.5-10.1) L Current Medications Medications (Trade) Dose Ordered Sig/Renea Route PRN Reason Start Time Stop Time Status Last Admin Dose Admin Acetaminophen (Tylenol) 650 mg Q4H PRN ORAL Mild Pain/Temp > 100.5 05/27/17 07:45 06/26/17 07:44 Aspirin (ASA) 81 mg DAILY NG 05/27/17 16:00 06/26/17 15:59 06/01/17 08:40 Atorvastatin Calcium (Lipitor) 80 mg BEDTIME NG 05/27/17 21:00 06/26/17 20:59 05/31/17 21:00 Fluconazole (Diflucan) 100 mg DAILY GT 06/02/17 09:00 06/06/17 17:59 Folic Acid (Folate) 1 mg DAILY NG 05/28/17 09:00 06/27/17 08:59 06/01/17 08:41 Hydralazine HCl (Apresoline) 25 mg TWICE A DAY GT 05/28/17 18:00 06/27/17 17:59 06/01/17 17:05 Levetiracetam (Keppra) 750 mg Q12HR NG 05/29/17 21:00 06/28/17 20:59 06/01/17 08:41 Linezolid (Zyvox) 600 mg EVERY 12 HOURS GT 06/01/17 21:00 06/04/17 17:59 Metoprolol Tartrate (Lopressor) 50 mg Q12HR NG 05/27/17 21:00 06/26/17 20:59 06/01/17 08:42 Metronidazole (Flagyl) 500 mg Q8HR NG 05/29/17 09:00 06/05/17 08:59 06/01/17 14:03 Mirtazapine (Remeron) 15 mg BEDTIME NG 05/27/17 21:00 06/26/17 20:59 05/31/17 21:00 Paroxetine HCl (Paxil) 10 mg BEDTIME NG 05/28/17 21:00 06/27/17 08:59 05/31/17 21:00 Sodium Chloride 1,000 ml @ 75 mls/hr [id number] 05/27/17 16:00 06/26/17 15:59 06/01/17 16:10 Sulfasalazine (Azulfidine) 500 mg EVERY 6 HOURS NG 05/27/17 18:00 06/26/17 17:59 06/01/17 17:05 Tamsulosin HCl (Flomax) 0.4 mg DAILY ORAL 05/28/17 10:00 06/27/17 09:59 06/01/17 08:41 Tramadol HCl (Ultram) 50 mg Q4H PRN NG Moderate Pain (Pain Scale 4-6) 05/27/17 15:45 06/03/17 15:44 Height (Feet): 5 Height (Inches): 6.00 Weight (Pounds): 130 General Appearance: no apparent distress, alert Neurologic: alert, responsive Psychiatric Behavior: cooperative Orientation: person Affect: appropriate Insight: poor Kunal Tse M.D. Jun 01, 2017 22:19
[2017-06-02] VITALS (10 sets, daily range): BP systolic 140–177; BP diastolic 75–106
[2017-06-02] MEDS: SulfASALAZine 500MG tab NG SCH ×4 (01:30→18:49)
[2017-06-02] MEDS: metroNIDAZOLE 500mg tab NG SCH ×2 (07:00→15:33)
[2017-06-02] MEDS ORDERED: Fluconazole 100mg tab GT SCH (09:00)
[2017-06-02] MEDS: HydrALAZINE 25mg tab GT SCH ×2 (09:05→18:49)
[2017-06-02] MEDS: Metoprolol Tartrate 50mg tab NG SCH ×2 (09:05→20:22)
[2017-06-02] MEDS: Aspirin Baby 81mg NG SCH (09:05)
[2017-06-02] MEDS: Tamsulosin 0.4mg cap ORAL SCH (09:05)
[2017-06-02 09:56] LABS: BASOPHILS % (AUTO) 0.9 % (0.0-2.0); EOSINOPHILS % (AUTO) 2.3 % (0.0-3.0); HEMATOCRIT 36.8 % (37.0-47.0); HEMOGLOBIN 11.7 G/DL (12.0-16.0); LYMPHOCYTES % (AUTO) 33.1 % (20.0-45.0); MEAN CORPUSCULAR VOLUME 87 FL (80-99); NEUTROPHILS % (AUTO) 53.7 % (45.0-75.0); PLATELET COUNT 256 K/UL (150-450); RED BLOOD COUNT 4.22 M/UL (4.20-5.40); WHITE BLOOD COUNT 5.5 K/UL (4.8-10.8)
[2017-06-02 09:59] LABS: ANION GAP 7 mmol/L (5-15); BLOOD UREA NITROGEN 9 mg/dL (7-18); CALCIUM 6.9 MG/DL (8.5-10.1); CARBON DIOXIDE 27 MMOL/L (21-32); CHLORIDE 111 MMOL/L (98-107); CREATININE 0.9 MG/DL (0.55-1.30); POTASSIUM 3.4 MMOL/L (3.5-5.1); SODIUM 145 MMOL/L (136-145)
--- NOTE | 2017-06-02 11:44 | Cardiac Electrophysiology PN ---
Assessment/Plan Assessment/Plan 1. Atrial fibrillation with RVR. Controlled with metoprolol 50 mg b.i.d. Off anticoagulation for hematuria and vaginal bleeding. Head CT showed a suspected subacute infarct in the right posterior temporal and parietal lobe.MRI Brain negative for acute infarct. 2. Hypertension. Continue metoprolol 50 mg b.i.d. and Hydralazine 25 NG bid 3. Subacute cerebrovascular accident. Further evaluation by Dr. Gomez. 4. Seizures, on Keppra. 5. Possible rheumatoid arthritis. The patient is on methotrexate and folic acid. 6. History of sepsis, on meropenem. 7. Dysphagia. PEG pending 8. Hematuria and Vaginal bleeding. Off Eliquis. Dr Soares following 9. C.diff. colitis, vre uti, Recommended by ID on flagyl, zyvox,diflucan DW RN Subjective Subjective In atrial fib with controlled rate in 70-80s.PEG today pending. Just got consent from her son. Objective Last 24 Hour Vital Signs Date Time Temp Pulse Resp B/P (MAP) Pulse Ox O2 Delivery O2 Flow Rate FiO2 06/02/17 09:05 161/117 06/02/17 09:05 73 161/117 06/02/17 04:00 68 06/02/17 04:00 96.2 80 19 159/99 90 Room Air 06/02/17 00:00 66 06/02/17 00:00 96.0 65 18 160/102 89 Room Air 06/01/17 22:00 84 166/108 06/01/17 20:00 95.9 74 20 166/108 84 Room Air 06/01/17 20:00 75 06/01/17 17:05 154/97 06/01/17 16:00 98.5 83 18 154/97 92 Room Air 06/01/17 16:00 64 06/01/17 12:00 98.0 79 18 139/86 95 Room Air 06/01/17 12:00 64 Intake and Output 06/01/17 06/02/17 19:00 07:00 Intake Total 1790 ml Output Total 1300 ml Balance 1790 ml -1300 ml Free Water 320 ml IV Total 750 ml Tube Feeding 720 ml Output Urine Total 1300 ml # Bowel Movements 1 1 Laboratory Tests Test 06/02/17 08:45 White Blood Count 5.5 K/UL (4.8-10.8) Red Blood Count 4.22 M/UL (4.20-5.40) Hemoglobin 11.7 G/DL (12.0-16.0) L Hematocrit 36.8 % (37.0-47.0) L Mean Corpuscular Volume 87 FL (80-99) Mean Corpuscular Hemoglobin 27.6 PG (27.0-31.0) Mean Corpuscular Hemoglobin Concent 31.7 G/DL (32.0-36.0) L Red Cell Distribution Width 15.0 % (11.6-14.8) H Platelet Count 256 K/UL (150-450) Mean Platelet Volume 7.3 FL (6.5-10.1) Neutrophils (%) (Auto) 53.7 % (45.0-75.0) Lymphocytes (%) (Auto) 33.1 % (20.0-45.0) Monocytes (%) (Auto) 10.0 % (1.0-10.0) Eosinophils (%) (Auto) 2.3 % (0.0-3.0) Basophils (%) (Auto) 0.9 % (0.0-2.0) Sodium Level 145 MMOL/L (136-145) Potassium Level 3.4 MMOL/L (3.5-5.1) L Chloride Level 111 MMOL/L (98-107) H Carbon Dioxide Level 27 MMOL/L (21-32) Anion Gap 7 mmol/L (5-15) Blood Urea Nitrogen 9 mg/dL (7-18) Creatinine 0.9 MG/DL (0.55-1.30) Estimat Glomerular Filtration Rate mL/min (>60) Glucose Level 109 MG/DL (74-106) H Calcium Level 6.9 MG/DL (8.5-10.1) L Objective HEAD AND NECK: No JVD. LUNGS: Decreased breath sounds. CARDIOVASCULAR: Irregular S1 and S2 with no gallop. ABDOMEN: Soft. EXTREMITIES: No pitting edema. BRODY AGUILAR Jun 02, 2017 11:44
--- NOTE | 2017-06-02 12:07 | Urology Progress Note ---
Assessment/Plan Assessment/Plan 1. Urinary retention. 2. Hematuria, improved. 3. Proteinuria. 4. Urinary tract infection. 5. Neurogenic bladder. 6. Urethral stricture. keep rpuitt, DO NOT REMOVE hand irrigate PRN abx as ordered, per ID consider renal u/s cysto later Subjective Allergies: Coded Allergies: No Known Allergies (Unverified , 04/30/16) Subjective all noted Objective Last 24 Hour Vital Signs Date Time Temp Pulse Resp B/P (MAP) Pulse Ox O2 Delivery O2 Flow Rate FiO2 06/02/17 09:05 161/117 06/02/17 09:05 73 161/117 06/02/17 04:00 68 06/02/17 04:00 96.2 80 19 159/99 90 Room Air 06/02/17 00:00 66 06/02/17 00:00 96.0 65 18 160/102 89 Room Air 06/01/17 22:00 84 166/108 06/01/17 20:00 95.9 74 20 166/108 84 Room Air 06/01/17 20:00 75 06/01/17 17:05 154/97 06/01/17 16:00 98.5 83 18 154/97 92 Room Air 06/01/17 16:00 64 Intake and Output 06/01/17 06/02/17 19:00 07:00 Intake Total 1790 ml Output Total 1300 ml Balance 1790 ml -1300 ml Free Water 320 ml IV Total 750 ml Tube Feeding 720 ml Output Urine Total 1300 ml # Bowel Movements 1 1 Microbiology Date/Time Source Procedure Growth Status 05/26/17 10:45 Blood Blood Culture - Final NO GROWTH AFTER 5 DAYS Complete 05/26/17 13:00 Nasal Nares MRSA Culture - Final NO METHICILLIN RESISTANT STAPH AUREUS... Complete 05/28/17 11:40 Stool Clostridium difficile Toxin Assay - Final Complete 05/26/17 10:45 Urine,Clean Catch Urine Culture - Final Enterococcus Faecium - Vre Anh Albicans Complete 05/26/17 13:00 Rectum VRE Culture - Final Enterococcus Faecium - Vre Complete Current Medications Medications (Trade) Dose Ordered Sig/Renea Route PRN Reason Start Time Stop Time Status Last Admin Dose Admin Acetaminophen (Tylenol) 650 mg Q4H PRN ORAL Mild Pain/Temp > 100.5 05/27/17 07:45 06/26/17 07:44 Aspirin (ASA) 81 mg DAILY NG 05/27/17 16:00 06/26/17 15:59 06/02/17 09:05 Atorvastatin Calcium (Lipitor) 80 mg BEDTIME NG 05/27/17 21:00 06/26/17 20:59 06/01/17 22:00 Fluconazole (Diflucan) 100 mg DAILY GT 06/02/17 09:00 06/06/17 17:59 06/02/17 09:05 Folic Acid (Folate) 1 mg DAILY NG 05/28/17 09:00 06/27/17 08:59 06/02/17 09:05 Hydralazine HCl (Apresoline) 25 mg TWICE A DAY GT 05/28/17 18:00 06/27/17 17:59 06/02/17 09:05 Levetiracetam (Keppra) 750 mg Q12HR NG 05/29/17 21:00 06/28/17 20:59 06/02/17 09:05 Linezolid (Zyvox) 600 mg EVERY 12 HOURS GT 06/01/17 21:00 06/04/17 17:59 06/02/17 09:05 Metoprolol Tartrate (Lopressor) 50 mg Q12HR NG 05/27/17 21:00 06/26/17 20:59 06/02/17 09:05 Metronidazole (Flagyl) 500 mg Q8HR NG 05/29/17 09:00 06/05/17 08:59 06/02/17 07:00 Mirtazapine (Remeron) 15 mg BEDTIME NG 05/27/17 21:00 06/26/17 20:59 06/01/17 22:00 Paroxetine HCl (Paxil) 10 mg BEDTIME NG 05/28/17 21:00 06/27/17 08:59 06/01/17 22:00 Sodium Chloride 1,000 ml @ 75 mls/hr [id number] IV 05/27/17 16:00 06/26/17 15:59 06/02/17 05:30 Sulfasalazine (Azulfidine) 500 mg EVERY 6 HOURS NG 05/27/17 18:00 06/26/17 17:59 06/02/17 07:00 Tamsulosin HCl (Flomax) 0.4 mg DAILY ORAL 05/28/17 10:00 06/27/17 09:59 06/02/17 09:05 Tramadol HCl (Ultram) 50 mg Q4H PRN NG Moderate Pain (Pain Scale 4-6) 05/27/17 15:45 06/03/17 15:44 Laboratory Tests 06/02/17 08:45: White Blood Count 5.5, Red Blood Count 4.22, Hemoglobin 11.7L, Hematocrit 36.8L , Mean Corpuscular Volume 87, Mean Corpuscular Hemoglobin 27.6, Mean Corpuscular Hemoglobin Concent 31.7L, Red Cell Distribution Width 15.0H, Platelet Count 256, Mean Platelet Volume 7.3, Neutrophils (%) (Auto) 53.7, Lymphocytes (%) (Auto) 33.1, Monocytes (%) (Auto) 10.0, Eosinophils (%) (Auto) 2.3, Basophils (%) (Auto) 0.9, Sodium Level 145, Potassium Level 3.4L, Chloride Level 111H, Carbon Dioxide Level 27, Anion Gap 7, Blood Urea Nitrogen 9, Creatinine 0.9, Estimat Glomerular Filtration Rate , Glucose Level 109H, Calcium Level 6.9L Height (Feet): 5 Height (Inches): 6.00 Weight (Pounds): 130 Objective exam stable, urine clearing, some debris pelvic u/s noted JOSH PENNINGTON Jun 02, 2017 12:07
[2017-06-02] MEDS ORDERED: NS 500ML IV ONE (12:25)
--- NOTE | 2017-06-02 12:27 | General Progress Note ---
Assessment/Plan Status: stable Assessment/Plan encephalopathy mdd anxiety - paxil hs -cont maria r Subjective Date patient seen: Jun 02, 2017 Neurologic/Psychiatric: Reports: anxiety Allergies: Coded Allergies: No Known Allergies (Unverified , 04/30/16) Subjective the pt is still confused min verbal participated in pt. no agitation Objective Last 24 Hour Vital Signs Date Time Temp Pulse Resp B/P (MAP) Pulse Ox O2 Delivery O2 Flow Rate FiO2 06/02/17 09:05 161/117 06/02/17 09:05 73 161/117 06/02/17 04:00 68 06/02/17 04:00 96.2 80 19 159/99 90 Room Air 06/02/17 00:00 66 06/02/17 00:00 96.0 65 18 160/102 89 Room Air 06/01/17 22:00 84 166/108 06/01/17 20:00 95.9 74 20 166/108 84 Room Air 06/01/17 20:00 75 06/01/17 17:05 154/97 06/01/17 16:00 98.5 83 18 154/97 92 Room Air 06/01/17 16:00 64 Intake and Output 06/01/17 06/02/17 19:00 07:00 Intake Total 1790 ml Output Total 1300 ml Balance 1790 ml -1300 ml Free Water 320 ml IV Total 750 ml Tube Feeding 720 ml Output Urine Total 1300 ml # Bowel Movements 1 1 Laboratory Tests 06/02/17 08:45: White Blood Count 5.5, Red Blood Count 4.22, Hemoglobin 11.7L, Hematocrit 36.8L , Mean Corpuscular Volume 87, Mean Corpuscular Hemoglobin 27.6, Mean Corpuscular Hemoglobin Concent 31.7L, Red Cell Distribution Width 15.0H, Platelet Count 256, Mean Platelet Volume 7.3, Neutrophils (%) (Auto) 53.7, Lymphocytes (%) (Auto) 33.1, Monocytes (%) (Auto) 10.0, Eosinophils (%) (Auto) 2.3, Basophils (%) (Auto) 0.9, Sodium Level 145, Potassium Level 3.4L, Chloride Level 111H, Carbon Dioxide Level 27, Anion Gap 7, Blood Urea Nitrogen 9, Creatinine 0.9, Estimat Glomerular Filtration Rate , Glucose Level 109H, Calcium Level 6.9L Height (Feet): 5 Height (Inches): 6.00 Weight (Pounds): 130 General Appearance: no apparent distress, lethargic, confused, overweight Kunal Tse M.D. Jun 02, 2017 12:27
[2017-06-02] MEDS ORDERED: Propofol 200mg/20ml IV ONE (12:30)
[2017-06-02] MEDS ORDERED: LR 1000ml ONE (12:30)
[2017-06-02] MEDS ORDERED: Lidocaine 1% MPF 10mg/ml 5ml ONE (12:30)
--- NOTE | 2017-06-02 12:30 | Pre-Procedure Note/Attestation ---
Pre-Procedure Note/Attestation Complete Prior to Procedure Planned Procedure: not applicable Procedure Narrative: egd/PEG Indications for Procedure Pre-Operative Diagnosis: DYSPHAGIA, ftt Attestation I attest that I discussed the nature of the procedure; its benefits; risks and complications; and alternatives (and the risks and benefits of such alternatives ), prior to the procedure, with the patient (or the patient's legal petroleum products sales representative). I attest that, if there was a reasonable possibility of needing a blood transfusion, the patient (or the patient's legal petroleum products sales representative) was given the [facility] standardized written summary, pursuant to the Giancarlo Pk Blood Safety Act ([place] Health and Safety Code # 1645, as amended). I attest that I re-evaluated the patient just prior to the surgery and that there has been no change in the patient's H&P, except as documented below: JOSE ARMANDO BARILLAS Jun 02, 2017 12:30
--- NOTE | 2017-06-02 12:35 | Endoscopy Procedure Note ---
Endoscopy Procedure Note Indication for Procedure: FTT Procedures Performed: EGD, PEG Operative Findings/Diagnosis: same Specimen: yes Pt Tolerated Procedure Well: Yes Estimated Blood Loss: none Anesthesiologist: jocelyne Anesthesia: MAC Implant(s) used?: No 50 yrs or older w/o bx or poly: Not Applicable 10yrs. F/U not recommended: Not Applicable JOSE ARMANDO BARILLAS Jun 02, 2017 12:35
--- NOTE | 2017-06-02 12:59 | Anethesia Preoperative Eval ---
Anesthesia Pre-op PMH/ROS General Date of Evaluation: Jun 02, 2017 Time of Evaluation: 12:23 Anesthesiologist: Nani ASA Score: ASA 4 Mallampati Score Class I : Soft palate, uvula, fauces, pillars visible Class II: Soft palate, uvula, fauces visible Class III: Soft palate, base of uvula visible Class IV: Only hard plate visible Mallampati Classification: Class III Surgeon: Donovan Diagnosis: Malnutrition Surgical Procedure: EGD, PEG Anesthesia History: none Family History: no anesthesia problems Allergies: Coded Allergies: No Known Allergies (Unverified , 04/30/16) Medications: see eMAR Past Medical History Cardiovascular: Reports: HTN, arrhythmia - AFib, other - CHF, HL Gastrointestinal/Genitourinary: Reports: GERD, CRI, ESRD - Dialysis Neurologic/Psychiatric: Reports: dementia, depression/anxiety Hematology/Immune: Reports: anemia Anesthesia Pre-op Phys. Exam Physician Exam Last Vital Signs Date Time Temp Pulse Resp B/P (MAP) Pulse Ox O2 Delivery O2 Flow Rate FiO2 06/02/17 09:05 161/117 06/02/17 09:05 73 06/02/17 04:00 96.2 19 90 Room Air Constitutional: NAD Neurologic: CN 2-12 intact Cardiovascular: RRR Respiratory: CTA Gastrointestinal: S/NT/ND Airway Exam Mallampati Score: Class III MO: limited ROM: limited Teeth: missing Anesthesia Pre-op A/P Labs Hematology Test 06/02/17 08:45 White Blood Count 5.5 K/UL (4.8-10.8) Red Blood Count 4.22 M/UL (4.20-5.40) Hemoglobin 11.7 G/DL (12.0-16.0) L Hematocrit 36.8 % (37.0-47.0) L Mean Corpuscular Volume 87 FL (80-99) Mean Corpuscular Hemoglobin 27.6 PG (27.0-31.0) Mean Corpuscular Hemoglobin Concent 31.7 G/DL (32.0-36.0) L Red Cell Distribution Width 15.0 % (11.6-14.8) H Platelet Count 256 K/UL (150-450) Mean Platelet Volume 7.3 FL (6.5-10.1) Neutrophils (%) (Auto) 53.7 % (45.0-75.0) Lymphocytes (%) (Auto) 33.1 % (20.0-45.0) Monocytes (%) (Auto) 10.0 % (1.0-10.0) Eosinophils (%) (Auto) 2.3 % (0.0-3.0) Basophils (%) (Auto) 0.9 % (0.0-2.0) Chemistry Test 06/02/17 08:45 Sodium Level 145 MMOL/L (136-145) Potassium Level 3.4 MMOL/L (3.5-5.1) L Chloride Level 111 MMOL/L (98-107) H Carbon Dioxide Level 27 MMOL/L (21-32) Anion Gap 7 mmol/L (5-15) Blood Urea Nitrogen 9 mg/dL (7-18) Creatinine 0.9 MG/DL (0.55-1.30) Estimat Glomerular Filtration Rate mL/min (>60) Glucose Level 109 MG/DL (74-106) H Calcium Level 6.9 MG/DL (8.5-10.1) L Risk Assessment & Plan Assessment: ASA 4 Plan: GA Status Change Before Surgery: No Pre-Antibiotics Drug: On Floor Fahad Cardoza MD Jun 02, 2017 12:59
--- NOTE | 2017-06-02 13:04 | Immediate Post-Op Evaluation ---
Immediate Post-Op Evalulation Immediate Post-Op Evalulation Procedure: EGD, PEG Date of Evaluation: Jun 02, 2017 Time of Evaluation: 13:24 IV Fluids: 300 LR Blood Products: 0 Estimated Blood Loss: 3 Urinary Output: 0 Blood Pressure Systolic: 157 Blood Pressure Diastolic: 91 Pulse Rate: 67 Respiratory Rate: 16 O2 Sat by Pulse Oximetry: 100 Temperature (Fahrenheit): 97.2 Pain Score (1-10): 1 Nausea: No Vomiting: No Complications 0 Patient Status: awake, reacts, patent, none Hydration Status: adequate Drug: On Floor Fahad Cardoza MD Jun 02, 2017 13:04
--- NOTE | 2017-06-02 13:05 | 48 Hour Post Anesthesia Eval ---
Post Anesthesia Evaluation Procedure: EGD, PEG Date of Evaluation: Jun 02, 2017 Time of Evaluation: 15:46 Blood Pressure Systolic: 156 0: 92 Pulse Rate: 67 Respiratory Rate: 18 Temperature (Fahrenheit): 97.2 O2 Sat by Pulse Oximetry: 100 Airway: patent Nausea: No Vomiting: No Pain Intensity: 1 Hydration Status: adequate Cardiopulmonary Status: Stable Mental Status/LOC: patient returned to baseline Follow-up Care/Observations: 0 Post-Anesthesia Complications: 0 Follow-up care needed: N/A Fahad Cardoza MD Jun 02, 2017 13:04
--- NOTE | 2017-06-02 17:19 | Wound Nurse Progress Note ---
Wound RN Progress Note Wound Consult #1 Dry flaky skin on perineal area and sacrococcygeal area. Skin still intact. Will cont recommendations below Recommendation -Keep clean and dry -Turn and reposition -Assess and f/u accordingly for any changes -Offload both heels -Heel protector on both heels -Optimize nutrition -Low air loss [facility] TRACIE GUAMAN RN Jun 02, 2017 17:19
--- NOTE | 2017-06-02 17:39 | General Progress Note ---
Assessment/Plan Problem List: (1) HTN (hypertension) ICD Codes: I10 - Essential (primary) hypertension SNOMED: 96726741 (2) Vaginal bleeding ICD Codes: N93.9 - Abnormal uterine and vaginal bleeding, unspecified SNOMED: 920661538, 458301212 (3) Gross hematuria ICD Codes: R31.0 - Gross hematuria SNOMED: 676218749 (4) Seizure ICD Codes: R56.9 - Unspecified convulsions SNOMED: 85579037 (5) CVA (cerebral vascular accident) ICD Codes: I63.9 - Cerebral infarction, unspecified SNOMED: 764790041 (6) Toxic metabolic encephalopathy ICD Codes: G92 - Toxic encephalopathy SNOMED: 788678698 (7) Acute kidney injury ICD Codes: N17.9 - Acute kidney failure, unspecified SNOMED: 30715113 (8) Lactic acid acidosis ICD Codes: E87.2 - Acidosis SNOMED: 67156662 (9) Atrial fibrillation with RVR ICD Codes: I48.91 - Unspecified atrial fibrillation SNOMED: 514944111326887 (10) Dementia ICD Codes: F03.90 - Unspecified dementia without behavioral disturbance SNOMED: 97594981 (11) Depression ICD Codes: F32.9 - Major depressive disorder, single episode, unspecified SNOMED: 92220148 (12) UTI (urinary tract infection) ICD Codes: N39.0 - Urinary tract infection, site not specified SNOMED: 20891630 (13) C. difficile colitis ICD Codes: A04.72 - Enterocolitis due to Clostridium difficile, not specified as recurrent SNOMED: 948107096 (14) Dysphagia ICD Codes: R13.10 - Dysphagia, unspecified SNOMED: 97582548, 272755357 (15) Hypernatremia ICD Codes: E87.0 - Hyperosmolality and hypernatremia SNOMED: 04249755 (16) Acute blood loss anemia ICD Codes: D62 - Acute posthemorrhagic anemia SNOMED: 259236358 (17) Severe sepsis ICD Codes: A41.9 - Sepsis, unspecified organism; R65.20 - Severe sepsis without septic shock SNOMED: 52124139 Assessment/Plan Neurology and cardiology consulted F/u MRI brain --> multiple old infarcts F/u EEG --> shows an epileptic focus Increased keppra to 750mg BID Neuro checks Cont ASA, statin F/u TTE --> EF 55% Cont MTP NPO per swallow eval NGT placed for feeds and meds (son agreed). D/w son who would like to proceed w / G tube. GI consulted w/ likely plan for G tube on Thursday. Eliquis held since 05/29 ID consulted Cont linezolid, diflucan and flagyl per ID F/u cultures Urology consulted given hematuria Hold Eliquis Cont pruitt Course Developer consulted given vaginal bleeding U/S pelvis was limited but possible uterine mass vs fibroid Trend CBC PT/OT/ST eval DC planning back to SNF once G tube in DVT Prophylaxis: SCD, Eliquis Code Status: Full Hospital Classification Declaration: Based on this initial evaluation, and depending on the patient's clinical course, I anticipate that this patient will require hospitalization for 1-2 days for hematuria and close respiratory/ hemodynamic monitoring. Disposition: Once the patient is stable to leave the hospital, I anticipate the patient will likely be discharged to the following environment: back to SNF Discussed with patient/family, nursing staff, SW/CM, ID, urology regarding clinical status, treatment course, and disposition planning. D/w dental assistant teacher re vaginal bleeding. D/w urology re hematuria. D/w GI re G tube Time of note may not reflect time of encounter. Subjective Allergies: Coded Allergies: No Known Allergies (Unverified , 04/30/16) Subjective No acute o/n events Cont to have gross hematuria via pruitt. Also noted to have vaginal bleeding. Pt remains seizure free. MRI brain showed old infarcts. HR improved. EEG showed epileptic focus. Keppra dose increased. Cont on tube feeds Pt less dysarthric. D/w pt's son who would like to proceed w/ G tube ROS limited 2/2 AMS, lethargic Objective Last 24 Hour Vital Signs Date Time Temp Pulse Resp B/P (MAP) Pulse Ox O2 Delivery O2 Flow Rate FiO2 06/02/17 13:40 97.8 64 20 170/91 100 Simple Mask 8.0 06/02/17 13:23 63 20 168/90 100 Simple Mask 8.0 06/02/17 13:18 56 20 156/99 100 Simple Mask 8.0 06/02/17 13:15 67 18 100 06/02/17 13:14 67 16 100 06/02/17 13:13 97.2 65 20 157/91 100 Simple Mask 8.0 06/02/17 12:00 96.8 62 20 143/93 94 Room Air 06/02/17 09:05 161/117 06/02/17 09:05 73 161/117 06/02/17 08:00 96.2 58 22 140/85 95 Room Air 06/02/17 08:00 69 06/02/17 04:00 68 06/02/17 04:00 96.2 80 19 159/99 90 Room Air 06/02/17 00:00 66 06/02/17 00:00 96.0 65 18 160/102 89 Room Air 06/01/17 22:00 84 166/108 06/01/17 20:00 95.9 74 20 166/108 84 Room Air 06/01/17 20:00 75 Intake and Output 06/01/17 06/02/17 19:00 07:00 Intake Total 1790 ml Output Total 1300 ml Balance 1790 ml -1300 ml Free Water 320 ml IV Total 750 ml Tube Feeding 720 ml Output Urine Total 1300 ml # Bowel Movements 1 1 Laboratory Tests 06/02/17 08:45: White Blood Count 5.5, Red Blood Count 4.22, Hemoglobin 11.7L, Hematocrit 36.8L , Mean Corpuscular Volume 87, Mean Corpuscular Hemoglobin 27.6, Mean Corpuscular Hemoglobin Concent 31.7L, Red Cell Distribution Width 15.0H, Platelet Count 256, Mean Platelet Volume 7.3, Neutrophils (%) (Auto) 53.7, Lymphocytes (%) (Auto) 33.1, Monocytes (%) (Auto) 10.0, Eosinophils (%) (Auto) 2.3, Basophils (%) (Auto) 0.9, Sodium Level 145, Potassium Level 3.4L, Chloride Level 111H, Carbon Dioxide Level 27, Anion Gap 7, Blood Urea Nitrogen 9, Creatinine 0.9, Estimat Glomerular Filtration Rate , Glucose Level 109H, Calcium Level 6.9L Height (Feet): 5 Height (Inches): 6.00 Weight (Pounds): 130 Objective General: alert, cooperative, no distress, appears stated age Head: normocephalic, without obvious abnormality, atraumatic Eyes: conjunctivae/corneas clear. PERRL, EOM's intact Throat: lips, mucosa, and tongue normal. MMM Neck: supple, symmetrical, trachea midline, and no JVD Lungs: clear to auscultation bilaterally Heart: regular rate and rhythm, S1, S2 normal, no murmur, click, rub or gallop Abdomen: soft, non-tender, non-distended, bowel sounds normal; no masses or organomegaly Extremities: extremities normal, atraumatic, no cyanosis or edema Pulses: 2+ and symmetric Skin: skin color, texture, turgor normal; no rashes or lesions Neurologic: grossly normal, no focal deficits except for dysarthria, quadriparesis Agapito Butler M.D. Jun 02, 2017 17:39
[2017-06-02] MEDS ORDERED: FLOMAX0.4 MG ORAL (17:42)
[2017-06-02] MEDS ORDERED: ASPIRIN81 MG NG (17:42)
[2017-06-02] MEDS ORDERED: KEPPRA500 M3 NG (18:14)
[2017-06-02] MEDS ORDERED: FLAGYL500 MG NG (18:15)
[2017-06-02] MEDS ORDERED: ZYVOX600 MG GT (18:15)
[2017-06-02] MEDS ORDERED: DIFLUCAN100 MG GT (18:15)
--- NOTE | 2017-06-02 18:21 | Discharge Summary ---
Discharge Summary Hospital Course Date of Admission May 26, 2017 at 12:29 Date of Discharge 06/02/17 Admitting Diagnosis ALTERED MENTAL STATUS, SEIZURE Reason for Hospitalization: Seizures, acute encephalopathy HPI 71y/o female with pmh of HTN, HLD, CVA, depression, Afib (on AC) who presents with seizures. Pt recently admitted and treated for ESBL UTI and sent to SNF on IV ertapenem. Pt was found to have 2 generalized tonic clonic seizures while at SNF. Pt currently lethargic and altered, unable to give history. In ER, pt had CT brain showed concern for subacute infarcts. She was given keppra for seizure. Consultations Gastroenterology, Neurology, Cardiology, Hospital Course Pt was admitted and seen by neurology. MRI brain showed multiple old infarcts. EEG showed an epileptic focus. Pt was started on keppra and dose titrated per neurology. Pt's mental status improved. TEAM SUPERVISOR recommended NPO given high aspiration risk. After extensive discussion w/ family, son wished to proceed w/ PEG placement. Pt underwent PEG placement on 06/02/17 and was tolerating tube feeds prior to d/c. Pt also with sepsis likely 2/2 UTI w/ urine culture showing VRE and Anh. Antibiotics were adjusted per ID. Pt also found to have C. diff. Pt is to complete linezolid, diflucan and flagyl per ID. Pt also with hematuria and vaginal bleeding. She was seen by urology and gynecology. Source likely 2/2 trauma from pruitt insertion. Bleeding resolve prior to d/c. Pt's Eliquis was held on d/c with plan to resume in a few days if no further bleeding. Discharge physical exam: General: alert, cooperative, no distress, appears stated age, A&Ox1-2 Head: normocephalic, without obvious abnormality, atraumatic Eyes: conjunctivae/corneas clear. PERRL, EOM's intact Throat: lips, mucosa, and tongue normal. MMM Neck: supple, symmetrical, trachea midline, and no JVD Lungs: clear to auscultation bilaterally Heart: regular rate and rhythm, S1, S2 normal, no murmur, click, rub or gallop Abdomen: soft, non-tender, non-distended, bowel sounds normal; +PEG c/d/i Extremities: extremities normal, atraumatic, no cyanosis or edema Pulses: 2+ and symmetric Skin: skin color, texture, turgor normal; no rashes or lesions Neurologic: grossly normal, no focal deficits Discharge diagnoses: (1) Seizure disorder ICD Codes: G40.909 - Epilepsy, unspecified, not intractable, without status epilepticus SNOMED: 811109405 (2) Altered mental status ICD Codes: R41.82 - Altered mental status, unspecified SNOMED: 837986396 (3) CVA (cerebral vascular accident) ICD Codes: I63.9 - Cerebral infarction, unspecified SNOMED: 230062818 (4) HLD (hyperlipidemia) ICD Codes: E78.5 - Hyperlipidemia, unspecified SNOMED: 63407883 (6) Seizure ICD Codes: R56.9 - Unspecified convulsions SNOMED: 25139697 (7) Lactic acid acidosis ICD Codes: E87.2 - Acidosis SNOMED: 26876470 (8) C. difficile colitis ICD Codes: A04.72 - Enterocolitis due to Clostridium difficile, not specified as recurrent SNOMED: 353367136 (9) Atrial fibrillation with RVR ICD Codes: I48.91 - Unspecified atrial fibrillation SNOMED: 854102487189428 (10) Gross hematuria ICD Codes: R31.0 - Gross hematuria SNOMED: 351986650 (11) Dysphagia ICD Codes: R13.10 - Dysphagia, unspecified SNOMED: 68162057, 569955862 (12) Hypernatremia ICD Codes: E87.0 - Hyperosmolality and hypernatremia SNOMED: 72264847 (13) Acute blood loss anemia ICD Codes: D62 - Acute posthemorrhagic anemia SNOMED: 390854185 (14) Vaginal bleeding ICD Codes: N93.9 - Abnormal uterine and vaginal bleeding, unspecified SNOMED: 262554628, 456108903 (15) Severe sepsis ICD Codes: A41.9 - Sepsis, unspecified organism; R65.20 - Severe sepsis without septic shock SNOMED: 55729103 (16) Dementia ICD Codes: F03.90 - Unspecified dementia without behavioral disturbance SNOMED: 42845972 (17) Bacteremia ICD Codes: R78.81 - Bacteremia SNOMED: 9637668 (18) Depression ICD Codes: F32.9 - Major depressive disorder, single episode, unspecified SNOMED: 92493058 (19) CHF (congestive heart failure) ICD Codes: I50.9 - Heart failure, unspecified SNOMED: 02936364 (20) UTI (urinary tract infection) ICD Codes: N39.0 - Urinary tract infection, site not specified SNOMED: 72863880 (21) HTN (hypertension) ICD Codes: I10 - Essential (primary) hypertension SNOMED: 59013350 (22) Elevated troponin ICD Codes: R74.8 - Abnormal levels of other serum enzymes SNOMED: 227267637, 607500361 (23) Toxic metabolic encephalopathy ICD Codes: G92 - Toxic encephalopathy SNOMED: 507366669 (25) Acute kidney injury ICD Codes: N17.9 - Acute kidney failure, unspecified SNOMED: 96289003 Status: stable (26) uterine mass, possible fibroid vs malignancy Discharge Medications New Medications: Aspirin* (Aspirin*) 81 Mg Tab.chew 81 MG NG DAILY for 90 Days, TAB Fluconazole* (Diflucan*) 100 Mg Tablet 100 MG GT DAILY for 2 Days, TAB Levetiracetam (Levetiracetam) 500 Mg Tablet 750 MG NG Q12HR for 90 Days, TAB Linezolid* (Zyvox*) 600 Mg Tablet 600 MG GT EVERY 12 HOURS for 4 Days, TAB Metronidazole* (Flagyl*) 500 Mg Tablet 500 MG NG Q8HR for 7 Days, TAB Tamsulosin HCl (Flomax) 0.4 Mg Cap.er.24h 0.4 MG ORAL DAILY for 30 Days, CAP Continued Medications: Acetaminophen* (Acetaminophen 325MG Tablet*) 325 Mg Tablet 650 MG ORAL Q4H PRN for For Pain, TAB Atorvastatin Calcium* (Lipitor*) 80 Mg Tablet 80 MG ORAL BEDTIME, TAB Folic Acid* (Folic Acid*) 1 Mg Tablet 1 MG ORAL DAILY, TAB Hydralazine Hcl* (Hydralazine Hcl*) 10 Mg Tablet 10 MG ORAL EVERY 6 HOURS, TAB Methotrexate Sodium* (Methotrexate*) 2.5 Mg Tablet 2.5 MG PO, TAB Metoprolol Tartrate* (Metoprolol Tartrate*) 50 Mg Tablet 50 MG ORAL EVERY 12 HOURS, TAB Metoprolol Tartrate* (Metoprolol Tartrate*) 50 Mg Tablet 50 MG ORAL Q12HR for 90 Days, TAB Mirtazapine* (Remeron*) 15 Mg Tablet 15 MG ORAL BEDTIME, TAB Nifedipine (Nifedipine*) 20 Mg Capsule 30 MG ORAL EVERY 12 HOURS, CAP Nifedipine Xl* (Procardia Xl*) 30 Mg Tab.er.24 30 MG ORAL Q12HR for 90 Days, TAB Omeprazole (Omeprazole) 20 Mg Capsule.dr 20 MG ORAL DAILY, CAP Paroxetine Hcl* (Paxil*) 20 Mg Tablet 20 MG ORAL DAILY, TAB 0 Refills Sulfasalazine* (Azulfidine*) 500 Mg Tablet 500 MG ORAL BEFORE MEALS, TAB Tramadol Hcl* (Ultram*) 50 Mg Tablet 50 MG ORAL Q4HR PRN for For Pain, #30 TAB 0 Refills Trazodone* (Trazodone*) 150 Mg Tablet 12.5 MG ORAL BEDTIME, TAB Valsartan (Diovan) 80 Mg Tab 80 MG ORAL DAILY, TAB Discontinued Medications: Apixaban (Eliquis) 2.5 Mg Tablet 5 MG ORAL BID for 90 Days, TAB Ertapenem (Invanz) 1 Gm Vial 1 GM IM DAILY for 7 Days, VIAL Gabapentin* (Gabapentin*) 300 Mg Capsule 300 MG ORAL DAILY, CAP Discharge Condition Upon Discharge: stable Discharge Disposition Patient was discharged to SNF Discharge Diagnoses: Agapito Butler M.D. Jun 02, 2017 18:21
--- NOTE | 2017-06-02 20:21 | Neurology Progress Note ---
Interim History Interim History Interim History Ms. Marquez feels better. She had a G-tube placed today and is osman fed through it. She has no pain today. Her urine has been clearing up. Her speech is less dysarthric. She has been seizure-free. She continues to be cognitively impoverished. She continues to be motorically challenged. She denies any new neurologic symptoms. Review of Systems Neuro Review of Systems Benign. Objective Physical Exam Last Vital Signs Date Time Temp Pulse Resp B/P (MAP) Pulse Ox O2 Delivery O2 Flow Rate FiO2 06/02/17 18:49 177/106 06/02/17 16:00 97.4 106 21 93 Simple Mask 8.0 Laboratory Tests Test 06/02/17 08:45 White Blood Count 5.5 K/UL (4.8-10.8) Red Blood Count 4.22 M/UL (4.20-5.40) Hemoglobin 11.7 G/DL (12.0-16.0) L Hematocrit 36.8 % (37.0-47.0) L Mean Corpuscular Volume 87 FL (80-99) Mean Corpuscular Hemoglobin 27.6 PG (27.0-31.0) Mean Corpuscular Hemoglobin Concent 31.7 G/DL (32.0-36.0) L Red Cell Distribution Width 15.0 % (11.6-14.8) H Platelet Count 256 K/UL (150-450) Mean Platelet Volume 7.3 FL (6.5-10.1) Neutrophils (%) (Auto) 53.7 % (45.0-75.0) Lymphocytes (%) (Auto) 33.1 % (20.0-45.0) Monocytes (%) (Auto) 10.0 % (1.0-10.0) Eosinophils (%) (Auto) 2.3 % (0.0-3.0) Basophils (%) (Auto) 0.9 % (0.0-2.0) Sodium Level 145 MMOL/L (136-145) Potassium Level 3.4 MMOL/L (3.5-5.1) L Chloride Level 111 MMOL/L (98-107) H Carbon Dioxide Level 27 MMOL/L (21-32) Anion Gap 7 mmol/L (5-15) Blood Urea Nitrogen 9 mg/dL (7-18) Creatinine 0.9 MG/DL (0.55-1.30) Estimat Glomerular Filtration Rate mL/min (>60) Glucose Level 109 MG/DL (74-106) H Calcium Level 6.9 MG/DL (8.5-10.1) L Neurologic Exam Objective PHYSICAL EXAMINATION: GENERAL: She is a well-developed, well-nourished, pleasant, black lady, lying in bed, in no acute distress. HEAD: Normocephalic and atraumatic. NECK: No neck rigidity was observed. EENT: Benign. NEUROLOGIC EXAMINATION: MENTAL STATUS EXAMINATION: She was awake but not alert. She was oriented to self and "[facility]" hospital only. She was able to repeat 3/3 words, but was unable to remember any of them in 1 minute and 3 minutes. She was able to remember Trump when the first name was given to her. Further mental status testing was quite impossible because of her inability to cooperate. SPEECH: She had moderate dysarthria. LANGUAGE: She had problems with comprehension and expression of language. CRANIAL NERVE EXAMINATION: II: She had a possible right visual field deficit to threat. She was unable to cooperate for confrontation testing. III, IV & : External ocular movements are full and the pupils 3 mm in diameter, equal, round, regular, and reactive sluggishly to light. V: She had normal facial sensations and the temporales, masseters, and pterygoids functioned normally. VII: She had a right greater than left seventh central facial paresis. VIII: She seemed to be able to hear and had no nystagmus. IX: The palate moved symmetrically on phonation. X: She had no hoarseness of voice. XI: The sternocleidomastoids and trapezii functioned normally. XII: The tongue was in the midline without any fasciculations or atrophy. MOTOR SYSTEM: The tone was increased in all four extremities with a mild degree of spasticity. Examination of muscle mass revealed generalized muscle wasting. Examination of power was exceedingly difficult to perform because of varying degrees of cooperation. 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 SENSORY EXAMINATION: She responded appropriately to light touch. She was unable to cooperate for other sensory modalities. REFLEXES: Trace+ and bilaterally symmetrical at the biceps, triceps, brachioradialis, and knees, 0 at both ankles. The plantar responses were extensor bilaterally. COORDINATION, STANCE & GAIT: Could not be tested. Impression/Recommendations Diagnostic Impression 1. Ms. Marcelle Marquez is a 71-year-old, right-handed, black lady, who does have a past history of depression, hypertension, dyslipidemia, cerebrovascular disease with multiple strokes, and chronic anticoagulation for atrial fibrillation, who was hospitalized after she had two generalized tonic-clonic seizures in her long term. On being evaluated in the emergency room, she was found to have a significant urinary tract infection. 2. She is less encephalopathic today. She continues to be cognitively impoverished. She continues to be motorically challenged. She has been seizure- free. She denies any pain. A PEG was placed today. 3. On neurological examination, at this time, she does demonstrate problems with orientation, recent and remote memory, higher cognitive function, and language. 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 4. The CT scan of the brain reveals chronic infarcts involving the right temporal lobe, left occipital lobe, left thalamus, and basal ganglia. 5. Her laboratory data revealed that the lactic acid was elevated to 6.1. Her BUN was elevated to 26 with a creatinine of 1.4. Her proBNP was elevated to 12, 677. She was hypoalbuminemic with albumin of 2.3 and her urinalysis revealed 3 + leukocyte esterase, 30 to 40 red blood cells, and 20 to 30 white blood cells per high-power field. 6. The MRI of the brain done on 05/28/17 revealed no acute pathology. Multiple old infarcts were seen. 7. The EEG revealed a moderate encephalopathy and a C4 (Right Central) epileptogenic focus. 8. 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 Recommendations 1. Continue present management. 2. Continue Keppra 750 mg q.12 h. for seizure prophylaxis. 3. Observe closely. Goran Gomez M.D., M.S.Sindy. GORAN GOMEZ Jun 02, 2017 20:21
--- NOTE | 2017-06-03 01:30 | Procedure Note ---
DATE OF PROCEDURE: 06/02/2017. SURGEON: Ko Man M.D. PROCEDURE: Upper endoscopy with biopsy and PEG placement. ANESTHESIA: Per Dr. Cardoza. INSTRUMENT: Olympus adult flexible upper endoscope. INDICATION: Dysphagia and failure to thrive. REASON FOR PROCEDURE: The procedure, risks, benefits, and possible consequences, including hemorrhage, aspiration, perforation and infection, and alternative treatments, were explained to the patient/legal guardian by Dr. Ko Man and the patient/legal guardian understood and accepted these risks. DESCRIPTION OF PROCEDURE: After informed consent was obtained and the patient was adequately sedated, Olympus upper endoscope was advanced from mouth into the second portion of the duodenum and retroflexion was performed in the stomach. He has had multiple polyps seen in the antrum one of them was biopsied. These polyps were small. Cold biopsy forceps technique was used to biopsy one of them. The patient had evidence of diffuse gastritis. Then, under endoscopic guidance under sterile condition, a 20-Kenyan pull type of G-tube was successfully placed in epigastric area. The distance from the tip of the tube to skin was about 3 cm in size. The patient tolerated the procedure very well without complication. SUMMARY OF FINDINGS: 1. Status post successful percutaneous endoscopic gastrostomy placement. 2. Gastric polyp status post biopsy. 3. Gastritis. RECOMMENDATIONS: 1. Follow up biopsy results and treat accordingly. 2. Abdominal binder. 3. Elevate the head of the bed at all times. 4. G-tube flush. 5. G-tube care. 6. Start tube feeding later today. 7. The patient is currently on antibiotics. I want to thank, Dr. Byrne for this kind referral. Ko Man M.D. DR: LANI JOB#: [id number] CC: Melanie Byrne M.D.; Fax#: [phone]
--- NOTE | 2017-06-08 21:47 | Cardiology Report ---
APPROVED REPORT EXAM: Two-dimensional and M-mode echocardiogram with Doppler and color Doppler. INDICATION CVA/TIA WITH BUBBLE STUDY M-Mode DIMENSIONS IVSd1.5 (0.7-1.1cm)Left Atrium (MM)5.4 (1.6-4.0cm) LVDd2.8 (3.5-5.6cm)Aortic Root3.0 (2.0-3.7cm) PWd2.4 (0.7-1.1cm)Aortic Cusp Exc.1.3 (1.5-2.0cm) IVSs1.9 cm LVDs2.2 (2.5-4.0cm) PWs2.0 cm Normal left ventricular chamber size. Study quality precludes accurate assessment of regional wall motion. Left ventricular ejection fraction estimated to be grossly normal. Moderate left ventricular hypertrophy by 2-D. No evidence of pericardial effusion Mild bi- atrial enlargement . Right ventricular chamber size is within normal limits. Focal aortic valve sclerosis with adequate cusp excursion. Thickened mitral valve leaflets with normal excursion. Mitral annulus and aortic root calcification. Pulmonic valve not well visualized. Normal tricuspid valve structure. IVC at size 1.7cm with physiologic collapse. BUBBLE STUDY WAS PERFORMED WITH 20 CC OF AGITATED SALINE. RESULT: NEGATIVE WHICH INDICATES NO COMMUNICATION BETWEEN THE RIGHT SIDE AND THE LEFT SIDE OF THE HEART. A color flow and spectral Doppler study was performed and revealed: No aortic regurgitation. Trace mitral regurgitation. Moderate tricuspid regurgitation. Tricuspid systolic velocities suggests peak right ventricular systolic pressure of 47 mmHg consistent with moderate pulmonary hypertension. No Pulmonic regurgitation present.
== END 2017-06-02 20:50 | DRG 100 ==
LOC: EDSEX 10:26 → EDBD 10:26 → EMR 11:21 → 2E 12:29 → EDBEDREQ 17:07
PROC: 0DH68UZ Insertion of Feeding Device into Stomach, Via Natural or Artificial Opening Endoscopic (ICD-10-PCS; principal; 2017-06-02 12:39)
PROC: 0DB68ZX Excision of Stomach, Via Natural or Artificial Opening Endoscopic, Diagnostic (ICD-10-PCS; principal; 2017-06-02 12:39)
DX: G40.409 Other generalized epilepsy and epileptic syndromes, not intractable, without status epilepticus (principal); G92 Toxic encephalopathy; I63.9 Cerebral infarction, unspecified; N17.9 Acute kidney failure, unspecified; A41.9 Sepsis, unspecified organism; A04.72 Enterocolitis due to Clostridium difficile, not specified as recurrent; E87.0 Hyperosmolality and hypernatremia; I48.91 Unspecified atrial fibrillation; B37.49 Other urogenital candidiasis; E87.2 Acidosis; D62 Acute posthemorrhagic anemia; F03.90 Unspecified dementia, unspecified severity, without behavioral disturbance, psychotic disturbance, mood disturbance, and anxiety; I10 Essential (primary) hypertension; E78.5 Hyperlipidemia, unspecified; F32.9 Major depressive disorder, single episode, unspecified; R33.9 Retention of urine, unspecified; N31.9 Neuromuscular dysfunction of bladder, unspecified; N35.9 Urethral stricture, unspecified; N93.9 Abnormal uterine and vaginal bleeding, unspecified; R62.7 Adult failure to thrive; R13.10 Dysphagia, unspecified; Z68.21 Body mass index [BMI] 21.0-21.9, adult; N85.8 Other specified noninflammatory disorders of uterus; K31.7 Polyp of stomach and duodenum; I50.9 Heart failure, unspecified; R74.8 Abnormal levels of other serum enzymes; K29.70 Gastritis, unspecified, without bleeding; F41.9 Anxiety disorder, unspecified; M06.9 Rheumatoid arthritis, unspecified; R31.0 Gross hematuria; B95.2 Enterococcus as the cause of diseases classified elsewhere; Z87.440 Personal history of urinary (tract) infections; Z86.73 Personal history of transient ischemic attack (TIA), and cerebral infarction without residual deficits; Z79.01 Long term (current) use of anticoagulants
CPT/HCPCS: 36415; 36600; 70450; 70551; 71010; 74000; 76856; 80048; 80053; 80061; 80299; 81003; 82550; 82803; 83036; 83605; 83880; 84443; 84484; 85025; 85610; 85730; 87040; 87081; 87086; 87181; 87324; 90630; 93005; 93306; 93880; 94003; 94150; 95819; J8499

== ENCOUNTER 2017-06-29 00:37 | Inpatient (IN) | payer MEDICARE, OTHER ==
[~2017-06-29] VITALS: Ht 162.6 cm; Wt 72.6 kg
[~2017-06-29 00:37] MED LIST changes: +ASPIRIN81 MG NG; +DIFLUCAN100 MG GT; +FLAGYL500 MG NG; +FLOMAX0.4 MG ORAL; +KEPPRA500 M3 NG; +ZYVOX600 MG GT
[2017-06-29 00:40] VITALS: BP 140/85
--- NOTE | 2017-06-29 00:41 | Emergency Room Report ---
History of Present Illness General Chief Complaint: Altered Level of Consciousness Source: Medical Record, EMS Present Illness HPI 71-year-old female came for her altered mental status History of present illness limited, patient continualy moaning and yelling EMS did not provide significant collateral info Urine Cx + for mike, suspective to linezolid on most recent admission History of seizures Allergies: Coded Allergies: No Known Allergies (Unverified , 04/30/16) Patient History Past Medical History: old chart reviewed, unable to obtain, seizures Past Surgical History: unable to obtain Pertinent Family History: unable to obtain Social History: Denies: smoking, alcohol use, drug use Now: No Immunizations: UTD Reviewed Nursing Documentation: PMH: Agreed, PSxH: Agreed Nursing Documentation-PMH Hx Cardiac Problems: Yes - AFIB Hx Hypertension: Yes Hx Cancer: No Hx Gastrointestinal Problems: Yes - GERD Hx Neurological Problems: Yes Hx Cerebrovascular Accident: Yes Hx Dementia: Yes Review of Systems All Other Systems: limited - AMS Physical Exam Vital Signs Date Time Temp Pulse Resp B/P (MAP) Pulse Ox O2 Delivery O2 Flow Rate FiO2 06/29/17 00:27 100.0 85 18 118/76 96 Room Air Sp02 EP Interpretation: reviewed, normal General Appearance: normal inspection, well appearing, no apparent distress, alert, GCS 15, non-toxic, obese Head: normocephalic, atraumatic Eyes: bilateral eye PERRL, bilateral eye EOMI ENT: normal ENT inspection, hearing grossly normal, normal pharynx, no angioedema, normal voice, TMs + canals normal, uvula midline, moist mucus membranes Neck: normal inspection, full range of motion, supple, thyroid normal, no meningismus, no bony tend Respiratory: normal inspection, lungs clear, normal breath sounds, no rhonchi, no respiratory distress, no retraction, no accessory muscle use, no wheezing, speaking full sentences Cardiovascular #1: regular rate, rhythm, no edema, no JVD, normal capillary refill Gastrointestinal: normal inspection, normal bowel sounds, non tender, soft, no mass, no peritonitis, non-distended, no guarding, no hernia, no pulsatile mass Genitourinary: no CVA tenderness, other - Prather cath and bag with thick, dark urine Musculoskeletal: normal inspection, back normal, normal range of motion, no calf tenderness, pelvis stable, Janice's Sign negative Neurologic: normal inspection, alert, responsive, 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 III-XII nml as tested, motor strength/tone normal, cerebellar normal, normal gait, speech normal, other - Moving all 4 extremities with significant motor strength Psychiatric: normal inspection, judgement/insight normal, mood/affect normal, no suicidal/homicidal ideation, no delusions Skin: normal inspection, normal color, no rash Lymphatic: normal inspection, no adenopathy Procedures Critical Care Time Critical Care Time CC time 35 minutes Critical care time endorsed for this patient for sepsis, likely to multidrug resistant UTI Critical care time includes review of laboratory tests, imaging, review of EMR, review of paperwork from SNF (if available), discussion with patient and family (if available), review of code status/POLS (if available). Critical care time also likely includes assessment of fluid status, stabilization of vital signs, selection and dosing of appropriate antibiotics, selection and dosing of Aspirin/Plavix/Heparin/Lovenox, discussion with PMD/ attending hospitalist/engineering intern. Critical care time does not include any procedures which are documented elsewhere in this EMR. Medical Decision Making Diagnostic Impression: Primary Impression: Altered level of consciousness Additional Impressions: UTI (urinary tract infection) Qualified Codes: T83.511D - Infection and inflammatory reaction due to indwelling urethral catheter, subsequent encounter; N39.0 - Urinary tract infection, site not specified Atrial flutter by electrocardiogram ER Course 71-year-old female with fever, leukocytosis Sepsis criteria met Likely sources urine given gross analysis of Prather and Prather bag UA shows nitrite positive UTI On previous visit patient had multidrug-resistant urinary tract infection, susceptible to linezolid which was given here Was given 1L NS but not full 30cc/kg bolus given unknown EF Endorsed to Dr Lopez/Lian as previous admitting physician for Dr Craig at 206am EKG Diagnostic Results Rate: other - Atrial flutter Rhythm: other - aflutter ST Segments: no acute changes ASA given to the pt in ED: No Rhythm Strip Diag. Results EP Interpretation: yes Rate: 96 Rhythm: NSR, no PVC's, no ectopy Last Vital Signs Date Time Temp Pulse Resp B/P (MAP) Pulse Ox O2 Delivery O2 Flow Rate FiO2 06/29/17 00:27 100.0 85 18 118/76 96 Room Air Status: improved Disposition: ADMITTED INPATIENT Condition: Critical CECY MADISON M.D. Jun 29, 2017 00:41
[2017-06-29 00:57] LABS: BASOPHILS % (AUTO) 0.6 % (0.0-2.0); HEMATOCRIT 35.2 % (37.0-47.0); HEMOGLOBIN 11.3 G/DL (12.0-16.0); LYMPHOCYTES % (AUTO) 13.3 % (20.0-45.0); MEAN CORPUSCULAR VOLUME 84 FL (80-99); MONOCYTES % (AUTO) 8.2 % (1.0-10.0); NEUTROPHILS % (AUTO) 77.8 % (45.0-75.0); PLATELET COUNT 365 K/UL (150-450); RED BLOOD COUNT 4.19 M/UL (4.20-5.40); RED CELL DISTRIBUTION WIDTH 16.9 % (11.6-14.8); WHITE BLOOD COUNT 11.5 K/UL (4.8-10.8)
[2017-06-29 01:00] LABS: APPEARANCE,URINE CLOUDY; BILIRUBIN, URINE NEGATIVE (NEGATIVE); GLUCOSE, URINE (UA) NEGATIVE (NEGATIVE); KETONES,URINE NEGATIVE (NEGATIVE); LEUKOCYTE ESTERASE ,URINE 3+ (NEGATIVE); NITRITE,URINE POSITIVE (NEGATIVE); PH,URINE 8 (4.5-8.0); PROTEIN,URINE 3+ (NEGATIVE); UROBILINOGEN,URINE 4 MG/DL (0.0-1.0)
[2017-06-29 01:06] LABS: ANION GAP 11 mmol/L (5-15); BLOOD UREA NITROGEN 27 mg/dL (7-18); CALCIUM 8.8 MG/DL (8.5-10.1); CARBON DIOXIDE 26 MMOL/L (21-32); CHLORIDE 100 MMOL/L (98-107); CREATININE 0.9 MG/DL (0.55-1.30); POTASSIUM 4.5 MMOL/L (3.5-5.1); SODIUM 136 MMOL/L (136-145)
[2017-06-29 01:08] LABS: COLOR,URINE YELLOW
[2017-06-29 01:19] LABS: ALANINE AMINOTRANSFERASE 68 U/L (12-78); ALBUMIN 2.3 G/DL (3.4-5.0); ALBUMIN/GLOBULIN RATIO 0.4 (1.0-2.7); ALKALINE PHOSPHATASE 158 U/L (46-116); ASPARTATE AMINO TRANSFERASE 96 U/L (15-37); BILIRUBIN,TOTAL 0.8 MG/DL (0.2-1.0); CKMB 1.3 NG/ML (0.0-3.6); CREATINE KINASE 596 U/L (26-308)
[2017-06-29] MEDS ORDERED: Miralax 17gm pkt ORAL PRN (02:15)
[2017-06-29] MEDS ORDERED: Acetaminophen 650 MG SUPP RECTAL PRN ×2 (02:15)
[2017-06-29 02:30] VITALS: BP 120/74
[2017-06-29] MEDS ORDERED: Acetaminophen 650mg/20.3ml ONE (03:07)
[2017-06-29] MEDS ORDERED: Acetaminophen 650mg/20.3ml GT ONE (03:15)
[2017-06-29 05:51] VITALS: BP 126/70
[2017-06-29] MEDS: HydrALAZINE 10mg Tab ORAL SCH ×3 (06:00→18:17)
[2017-06-29] MEDS: SulfASALAZine 500MG tab ORAL SCH ×3 (08:01→17:53)
[2017-06-29] MEDS ORDERED: PARoxetine 20mg tab ORAL SCH (09:00)
[2017-06-29] MEDS: Heparin 5000 units/ml inj SUBQ SCH ×2 (09:00→19:57)
[2017-06-29] MEDS: Aspirin Baby 81mg NG SCH ×2 (09:00→10:18)
[2017-06-29] MEDS: Docusate 100mg cap ORAL SCH ×2 (10:19→21:09)
[2017-06-29] MEDS: Metoprolol Tartrate 50mg tab ORAL SCH ×2 (10:21→21:11)
[2017-06-29] MEDS: Tamsulosin 0.4mg cap ORAL SCH (10:26)
[2017-06-29 12:30] VITALS: BP 101/64
--- NOTE | 2017-06-29 12:30 | Diagnostic Imaging Report ---
Indication: Shortness of breath Technique: One view of the chest Comparison: 05/29/2017 Findings: The heart is borderline enlarged. There are dense mitral annular calcifications. There is questionably some retrocardiac consolidation. There is questionably some hazy opacity at the left lung base. Right lung and pleural space are clear. Impression: Cardiomegaly Equivocal left basilar pleural and/or parenchymal disease-correlate with clinical findings
[2017-06-29] MEDS ORDERED: Linezolid 600mg/300ml (Pre-Mix) IVPB ONE (14:00)
--- NOTE | 2017-06-29 14:30 | History and Physical ---
History of Present Illness General Date patient seen: Jun 29, 2017 Time patient seen: 14:30 Reason for Hospitalization: Sepsis, UTI Present Illness HPI 71y/o female with pmh of HTN, HLD, CVA, depression, Afib (was on Eliquis but now held), seizure d/o, dementia who presents with AMS. History from pt limited 2/2 AMS. Per report, pt noted altered, more confused. She was reported to be continually moaning and yelling. At baseline pt more awake, alert, cooperative but does have confusion from dementia. In ED, pt w/ temp to 100.5, tachycardic to 100s. Labs showed WBC 11.5K. U/A w/ concern for UTI. Prather exchanged in ED. 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 Allergies: Coded Allergies: No Known Allergies (Unverified , 04/30/16) Medication History Scheduled Aspirin* (Aspirin*), 81 MG NG DAILY Atorvastatin Calcium* (Lipitor*), 80 MG ORAL BEDTIME, (Reported) Fluconazole* (Diflucan*), 100 MG GT DAILY Folic Acid* (Folic Acid*), 1 MG ORAL DAILY, (Reported) Hydralazine Hcl* (Hydralazine Hcl*), 10 MG ORAL EVERY 6 HOURS, (Reported) Levetiracetam (Levetiracetam), 750 MG NG Q12HR Linezolid* (Zyvox*), 600 MG GT EVERY 12 HOURS Metoprolol Tartrate* (Metoprolol Tartrate*), 50 MG ORAL EVERY 12 HOURS, ( Reported) Metoprolol Tartrate* (Metoprolol Tartrate*), 50 MG ORAL Q12HR Metronidazole* (Flagyl*), 500 MG NG Q8HR Mirtazapine* (Remeron*), 15 MG ORAL BEDTIME, (Reported) Nifedipine (Nifedipine*), 30 MG ORAL EVERY 12 HOURS, (Reported) Nifedipine Xl* (Procardia Xl*), 30 MG ORAL Q12HR Omeprazole (Omeprazole), 20 MG ORAL DAILY, (Reported) Paroxetine Hcl* (Paxil*), 20 MG ORAL DAILY, (Reported) Sulfasalazine* (Azulfidine*), 500 MG ORAL BEFORE MEALS, (Reported) Tamsulosin HCl (Flomax), 0.4 MG ORAL DAILY Trazodone* (Trazodone*), 12.5 MG ORAL BEDTIME, (Reported) Valsartan (Diovan), 80 MG ORAL DAILY, (Reported) Scheduled PRN Acetaminophen* (Acetaminophen 325MG Tablet*), 650 MG ORAL Q4H PRN for For Pain, (Reported) Tramadol Hcl* (Ultram*), 50 MG ORAL Q4HR PRN for For Pain, (Reported) Miscellaneous Medications Methotrexate Sodium* (Methotrexate*), 2.5 MG PO, (Reported) Patient History History Provided By: Patient, Medical Record, PMD Healthcare decision maker Resuscitation status Advanced Directive on File Past Medical/Surgical History Past Medical/Surgical History: (1) H/O: CVA (cerebrovascular accident) (2) Dementia (3) Seizure disorder (4) Atrial fibrillation (5) HLD (hyperlipidemia) (6) Depression (7) HTN (hypertension) (8) S/P percutaneous endoscopic gastrostomy (PEG) tube placement Family History Family History: Patient reports no known family medical history. Social History Social History: (1) lives at [facility] Review of Systems ROS Narrative Unable to obtain as pt w/ AMS Physical Exam Physical Exam Narrative General: alert, cooperative, no distress, appears stated age, confused Head: normocephalic, without obvious abnormality, atraumatic Eyes: conjunctivae/corneas clear. PERRL, EOM's intact Throat: lips, mucosa, and tongue normal. MMM Neck: supple, symmetrical, trachea midline, and no JVD Lungs: clear to auscultation bilaterally Heart: regular rate and rhythm, S1, S2 normal, no murmur, click, rub or gallop Abdomen: soft, non-tender, non-distended, bowel sounds normal; +PEG c/d/i : +Prather w/ bloody urine Extremities: extremities normal, atraumatic, no cyanosis or edema Pulses: 2+ and symmetric Skin: skin color, texture, turgor normal; no rashes or lesions Neurologic: grossly normal, no focal deficits Last 24 Hour Vital Signs Date Time Temp Pulse Resp B/P (MAP) Pulse Ox O2 Delivery O2 Flow Rate FiO2 06/29/17 12:30 97.3 83 20 101/64 98 06/29/17 12:14 105/57 06/29/17 10:21 100 129/79 06/29/17 10:20 100 129/79 06/29/17 08:33 99.9 85 18 110/72 100 Room Air 06/29/17 06:00 100/68 06/29/17 05:51 99.9 85 18 126/70 100 Room Air 06/29/17 02:30 99.9 101 18 120/74 96 Room Air 06/29/17 00:40 100.5 95 18 140/85 96 Room Air 06/29/17 00:27 100.0 85 18 118/76 96 Room Air Intake and Output 06/28/17 06/29/17 19:00 07:00 Intake Total 0 ml Balance 0 ml Intake Oral 0 ml # Bowel Movements 1 Laboratory Tests Test 06/29/17 00:40 White Blood Count 11.5 K/UL (4.8-10.8) H Red Blood Count 4.19 M/UL (4.20-5.40) L Hemoglobin 11.3 G/DL (12.0-16.0) L Hematocrit 35.2 % (37.0-47.0) L Mean Corpuscular Volume 84 FL (80-99) Mean Corpuscular Hemoglobin 27.1 PG (27.0-31.0) Mean Corpuscular Hemoglobin Concent 32.2 G/DL (32.0-36.0) Red Cell Distribution Width 16.9 % (11.6-14.8) H Platelet Count 365 K/UL (150-450) Mean Platelet Volume 6.6 FL (6.5-10.1) Neutrophils (%) (Auto) 77.8 % (45.0-75.0) H Lymphocytes (%) (Auto) 13.3 % (20.0-45.0) L Monocytes (%) (Auto) 8.2 % (1.0-10.0) Eosinophils (%) (Auto) 0.0 % (0.0-3.0) Basophils (%) (Auto) 0.6 % (0.0-2.0) Urine Color Yellow Urine Appearance Cloudy Urine pH 8 (4.5-8.0) Urine Specific [place] 1.015 (1.005-1.035) Urine Protein 3+ (NEGATIVE) H Urine Glucose (UA) Negative (NEGATIVE) Urine Ketones Negative (NEGATIVE) Urine Occult Blood 5+ (NEGATIVE) H Urine Nitrite Positive (NEGATIVE) H Urine Bilirubin Negative (NEGATIVE) Urine Urobilinogen 4 MG/DL (0.0-1.0) H Urine Leukocyte Esterase 3+ (NEGATIVE) H Urine RBC Tntc /HPF (0 - 2) H Urine WBC Tntc /HPF (0 - 2) H Urine Squamous Epithelial Cells Few /LPF (NONE/OCC) Urine Bacteria Many /HPF (NONE) H Sodium Level 136 MMOL/L (136-145) Potassium Level 4.5 MMOL/L (3.5-5.1) Chloride Level 100 MMOL/L (98-107) Carbon Dioxide Level 26 MMOL/L (21-32) Anion Gap 11 mmol/L (5-15) Blood Urea Nitrogen 27 mg/dL (7-18) H Creatinine 0.9 MG/DL (0.55-1.30) Estimat Glomerular Filtration Rate mL/min (>60) Glucose Level 116 MG/DL (74-106) H Lactic Acid Level 1.40 mmol/L (0.66-2.22) Calcium Level 8.8 MG/DL (8.5-10.1) Total Bilirubin 0.8 MG/DL (0.2-1.0) Aspartate Amino Transf (AST/SGOT) 96 U/L (15-37) H Alanine Aminotransferase (ALT/SGPT) 68 U/L (12-78) Alkaline Phosphatase 158 U/L (46-116) H Total Creatine Kinase 596 U/L (26-308) H Creatine Kinase MB 1.3 NG/ML (0.0-3.6) Creatine Kinase MB Relative Index 0.2 Troponin I 0.017 ng/mL (0.000-0.056) Total Protein 8.4 G/DL (6.4-8.2) H Albumin 2.3 G/DL (3.4-5.0) L Globulin 6.1 g/dL Albumin/Globulin Ratio 0.4 (1.0-2.7) L Microbiology Date/Time Source Procedure Growth Status 06/29/17 01:27 Nose Influenza Types A,B Antigen (MARTHA) - Final Complete Height (Feet): 5 Height (Inches): 4.00 Weight (Pounds): 160 Medications Current Medications Medications (Trade) Dose Ordered Sig/Renea Route PRN Reason Start Time Stop Time Status Last Admin Dose Admin Acetaminophen (Tylenol) 650 mg Q4H PRN ORAL Mild Pain (Pain Scale 1-3) 06/29/17 02:15 07/29/17 02:14 Acetaminophen (Tylenol) 650 mg Q4H PRN ORAL fever 06/29/17 02:15 07/29/17 02:14 Acetaminophen (Tylenol) 650 mg Q4H PRN RECTAL Mild Pain (Pain Scale 1-3) 06/29/17 02:15 07/29/17 02:14 Acetaminophen (Tylenol) 650 mg Q4H PRN RECTAL fever 06/29/17 02:15 07/29/17 02:14 Aspirin (ASA) 81 mg DAILY NG 06/29/17 09:00 07/29/17 08:59 06/29/17 10:18 Bisacodyl (Dulcolax) 10 mg HSPRN PRN RECTAL Constipation 06/29/17 02:15 07/29/17 02:14 Dextrose (Dextrose 50%) STAT PRN IV Hypoglycemia 06/29/17 02:15 07/29/17 02:14 Docusate Sodium (Colace) 100 mg EVERY 12 HOURS ORAL 06/29/17 09:00 07/29/17 08:59 06/29/17 10:19 Folic Acid (Folate) 1 mg DAILY ORAL 06/29/17 09:00 07/29/17 08:59 06/29/17 10:19 Heparin Sodium (Porcine) (Heparin 5000 units/ml) 5,000 units EVERY 12 HOURS SUBQ 06/29/17 09:00 07/29/17 08:59 Hydralazine HCl (Apresoline) 10 mg EVERY 6 HOURS ORAL 06/29/17 06:00 07/29/17 05:59 06/29/17 12:14 Levetiracetam (Keppra) 750 mg Q12HR NG 06/29/17 09:00 07/29/17 08:59 06/29/17 10:18 Linezolid 300 ml @ 300 mls/hr ONCE ONCE IVPB 06/29/17 14:00 06/29/17 14:59 Linezolid 300 ml @ 300 mls/hr Q12HR@0200,1400 IVPB 06/30/17 02:00 07/07/17 01:59 Metoprolol Tartrate (Lopressor) 50 mg EVERY 12 HOURS ORAL 06/29/17 09:00 07/29/17 08:59 06/29/17 10:21 Mirtazapine (Remeron) 15 mg BEDTIME ORAL 06/29/17 21:00 07/29/17 20:59 Nifedipine (Procardia XL) 30 mg Q12HR ORAL 06/29/17 09:00 07/29/17 08:59 06/29/17 10:20 Ondansetron HCl (Zofran) 4 mg Q6H PRN IVP Nausea & Vomiting 06/29/17 02:15 07/29/17 02:14 Polyethylene Glycol (Miralax) 17 gm HSPRN PRN ORAL Constipation 06/29/17 02:15 07/29/17 02:14 Sulfasalazine (Azulfidine) 500 mg BEFORE MEALS ORAL 06/29/17 06:30 07/29/17 06:29 06/29/17 12:21 Tamsulosin HCl (Flomax) 0.4 mg DAILY ORAL 06/29/17 09:00 07/29/17 08:59 06/29/17 10:26 Assessment/Plan Problem List: (1) Sepsis ICD Codes: A41.9 - Sepsis, unspecified organism SNOMED: 10820844 (2) Toxic metabolic encephalopathy ICD Codes: G92 - Toxic encephalopathy SNOMED: 105725803 (3) UTI (urinary tract infection) ICD Codes: N39.0 - Urinary tract infection, site not specified SNOMED: 54696689 Qualifiers: Qualified Codes: T83.511D - Infection and inflammatory reaction due to indwelling urethral catheter, subsequent encounter; N39.0 - Urinary tract infection, site not specified (4) Gross hematuria ICD Codes: R31.0 - Gross hematuria SNOMED: 730318529 (5) Seizure disorder ICD Codes: G40.909 - Epilepsy, unspecified, not intractable, without status epilepticus SNOMED: 665744654 (6) Atrial fibrillation ICD Codes: I48.91 - Unspecified atrial fibrillation SNOMED: 59065628 (7) HTN (hypertension) ICD Codes: I10 - Essential (primary) hypertension SNOMED: 73241071 (8) HLD (hyperlipidemia) ICD Codes: E78.5 - Hyperlipidemia, unspecified SNOMED: 02036503 (9) S/P percutaneous endoscopic gastrostomy (PEG) tube placement ICD Codes: Z93.1 - Gastrostomy status SNOMED: 530380734 (10) H/O: CVA (cerebrovascular accident) ICD Codes: Z86.73 - Personal history of transient ischemic attack (TIA), and cerebral infarction without residual deficits SNOMED: 013274195 Status: stable Assessment/Plan Admit inpt ID consulted Empiric meropenem and linezolid for sepsis likely 2/2 UTI F/u cultures Urology consulted given gross hematuria Prather exchanged in ED on 06/29 Trend CBC Pt was on Eliquis prior for Afib but held last admission given gross hematuria and vaginal bleeding. Appears it has not been restarted yet. Will hold off on restarting now as pt continues to have hematuria Cont SNF meds Pain control, bowel regimen Supportive care DVT Prophylaxis: SCD Code Status: Full Hospital Classification Declaration: Based on this initial evaluation, and depending on the patient's clinical course, I anticipate that this patient will require hospitalization for 2-3 days for sepsis, UTI and close respiratory/ hemodynamic monitoring. Disposition: Once the patient is stable to leave the hospital, I anticipate the patient will likely be discharged to the following environment: back to SNF I spent 71 minutes on this patient's case, and >50% was dedicated to counseling and/or care coordination. Discussed with patient/family, nursing staff, SW/NICOLLE, ID, urology regarding clinical status, treatment course, and disposition planning. Time of note may not reflect time of encounter. Agapito Butler M.D. Jun 29, 2017 14:30
[2017-06-29 16:00] VITALS: BP 131/82
--- NOTE | 2017-06-29 16:19 | Infectious Diseases Prog Note ---
Assessment/Plan Assessment/Plan Full consult dictated: A) 1) uti, ? sepsis, leukocytosis, fevers, ams - hx of esbl gram neg uti and vre uti 2) allergies - negative 3) pmh noted P) 1) meropenem plus zyvox 2) check urine culture 3) thank you Subjective Allergies: Coded Allergies: No Known Allergies (Unverified , 04/30/16) Objective Vital Signs Last 24 Hour Vital Signs Date Time Temp Pulse Resp B/P (MAP) Pulse Ox O2 Delivery O2 Flow Rate FiO2 06/29/17 12:30 97.3 83 20 101/64 98 06/29/17 12:14 105/57 06/29/17 10:21 100 129/79 06/29/17 10:20 100 129/79 06/29/17 08:33 99.9 85 18 110/72 100 Room Air 06/29/17 06:00 100/68 06/29/17 05:51 99.9 85 18 126/70 100 Room Air 06/29/17 02:30 99.9 101 18 120/74 96 Room Air 06/29/17 00:40 100.5 95 18 140/85 96 Room Air 06/29/17 00:27 100.0 85 18 118/76 96 Room Air Height (Feet): 5 Height (Inches): 4.00 Weight (Pounds): 160 Microbiology Date/Time Source Procedure Growth Status 06/29/17 01:27 Nose Influenza Types A,B Antigen (MARTHA) - Final Complete Laboratory Tests Test 06/29/17 00:40 White Blood Count 11.5 K/UL (4.8-10.8) H Red Blood Count 4.19 M/UL (4.20-5.40) L Hemoglobin 11.3 G/DL (12.0-16.0) L Hematocrit 35.2 % (37.0-47.0) L Mean Corpuscular Volume 84 FL (80-99) Mean Corpuscular Hemoglobin 27.1 PG (27.0-31.0) Mean Corpuscular Hemoglobin Concent 32.2 G/DL (32.0-36.0) Red Cell Distribution Width 16.9 % (11.6-14.8) H Platelet Count 365 K/UL (150-450) Mean Platelet Volume 6.6 FL (6.5-10.1) Neutrophils (%) (Auto) 77.8 % (45.0-75.0) H Lymphocytes (%) (Auto) 13.3 % (20.0-45.0) L Monocytes (%) (Auto) 8.2 % (1.0-10.0) Eosinophils (%) (Auto) 0.0 % (0.0-3.0) Basophils (%) (Auto) 0.6 % (0.0-2.0) Urine Color Yellow Urine Appearance Cloudy Urine pH 8 (4.5-8.0) Urine Specific [place] 1.015 (1.005-1.035) Urine Protein 3+ (NEGATIVE) H Urine Glucose (UA) Negative (NEGATIVE) Urine Ketones Negative (NEGATIVE) Urine Occult Blood 5+ (NEGATIVE) H Urine Nitrite Positive (NEGATIVE) H Urine Bilirubin Negative (NEGATIVE) Urine Urobilinogen 4 MG/DL (0.0-1.0) H Urine Leukocyte Esterase 3+ (NEGATIVE) H Urine RBC Tntc /HPF (0 - 2) H Urine WBC Tntc /HPF (0 - 2) H Urine Squamous Epithelial Cells Few /LPF (NONE/OCC) Urine Bacteria Many /HPF (NONE) H Sodium Level 136 MMOL/L (136-145) Potassium Level 4.5 MMOL/L (3.5-5.1) Chloride Level 100 MMOL/L (98-107) Carbon Dioxide Level 26 MMOL/L (21-32) Anion Gap 11 mmol/L (5-15) Blood Urea Nitrogen 27 mg/dL (7-18) H Creatinine 0.9 MG/DL (0.55-1.30) Estimat Glomerular Filtration Rate mL/min (>60) Glucose Level 116 MG/DL (74-106) H Lactic Acid Level 1.40 mmol/L (0.66-2.22) Calcium Level 8.8 MG/DL (8.5-10.1) Total Bilirubin 0.8 MG/DL (0.2-1.0) Aspartate Amino Transf (AST/SGOT) 96 U/L (15-37) H Alanine Aminotransferase (ALT/SGPT) 68 U/L (12-78) Alkaline Phosphatase 158 U/L (46-116) H Total Creatine Kinase 596 U/L (26-308) H Creatine Kinase MB 1.3 NG/ML (0.0-3.6) Creatine Kinase MB Relative Index 0.2 Troponin I 0.017 ng/mL (0.000-0.056) Total Protein 8.4 G/DL (6.4-8.2) H Albumin 2.3 G/DL (3.4-5.0) L Globulin 6.1 g/dL Albumin/Globulin Ratio 0.4 (1.0-2.7) L Current Medications Medications (Trade) Dose Ordered Sig/Renea Route PRN Reason Start Time Stop Time Status Last Admin Dose Admin Acetaminophen (Tylenol) 650 mg Q4H PRN ORAL Mild Pain (Pain Scale 1-3) 06/29/17 02:15 07/29/17 02:14 Acetaminophen (Tylenol) 650 mg Q4H PRN ORAL fever 06/29/17 02:15 07/29/17 02:14 Acetaminophen (Tylenol) 650 mg Q4H PRN RECTAL Mild Pain (Pain Scale 1-3) 06/29/17 02:15 07/29/17 02:14 Acetaminophen (Tylenol) 650 mg Q4H PRN RECTAL fever 06/29/17 02:15 07/29/17 02:14 Aspirin (ASA) 81 mg DAILY NG 06/29/17 09:00 07/29/17 08:59 06/29/17 10:18 Bisacodyl (Dulcolax) 10 mg HSPRN PRN RECTAL Constipation 06/29/17 02:15 07/29/17 02:14 Dextrose (Dextrose 50%) STAT PRN IV Hypoglycemia 06/29/17 02:15 07/29/17 02:14 Docusate Sodium (Colace) 100 mg EVERY 12 HOURS ORAL 06/29/17 09:00 07/29/17 08:59 06/29/17 10:19 Folic Acid (Folate) 1 mg DAILY ORAL 06/29/17 09:00 07/29/17 08:59 06/29/17 10:19 Heparin Sodium (Porcine) (Heparin 5000 units/ml) 5,000 units EVERY 12 HOURS SUBQ 06/29/17 09:00 07/29/17 08:59 Hydralazine HCl (Apresoline) 10 mg EVERY 6 HOURS ORAL 06/29/17 06:00 07/29/17 05:59 06/29/17 12:14 Levetiracetam (Keppra) 750 mg Q12HR NG 06/29/17 09:00 07/29/17 08:59 06/29/17 10:18 Linezolid 300 ml @ 300 mls/hr Q12HR@0200,1400 IVPB 06/30/17 02:00 07/07/17 01:59 Meropenem 1 gm/ Sodium Chloride 100 ml @ 200 mls/hr Q8HR IVPB 06/29/17 16:00 07/04/17 15:59 Metoprolol Tartrate (Lopressor) 50 mg EVERY 12 HOURS ORAL 06/29/17 09:00 07/29/17 08:59 06/29/17 10:21 Mirtazapine (Remeron) 15 mg BEDTIME ORAL 06/29/17 21:00 07/29/17 20:59 Nifedipine (Procardia XL) 30 mg Q12HR ORAL 06/29/17 09:00 07/29/17 08:59 06/29/17 10:20 Ondansetron HCl (Zofran) 4 mg Q6H PRN IVP Nausea & Vomiting 06/29/17 02:15 07/29/17 02:14 Polyethylene Glycol (Miralax) 17 gm HSPRN PRN ORAL Constipation 06/29/17 02:15 07/29/17 02:14 Sulfasalazine (Azulfidine) 500 mg BEFORE MEALS ORAL 06/29/17 06:30 07/29/17 06:29 06/29/17 12:21 Tamsulosin HCl (Flomax) 0.4 mg DAILY ORAL 06/29/17 09:00 07/29/17 08:59 06/29/17 10:26 AMPARO HARRISON Jun 29, 2017 16:19
[2017-06-29 20:00] VITALS: BP 137/114
[2017-06-29] MEDS ORDERED: Atorvastatin 80mg tab ORAL SCH (21:00)
[2017-06-29 21:02] LABS: BASOPHILS % (AUTO) 0.5 % (0.0-2.0); EOSINOPHILS % (AUTO) 1.1 % (0.0-3.0); HEMATOCRIT 32.9 % (37.0-47.0); HEMOGLOBIN 10.6 G/DL (12.0-16.0); MEAN CORPUSCULAR VOLUME 86 FL (80-99); MONOCYTES % (AUTO) 8.7 % (1.0-10.0); NEUTROPHILS % (AUTO) 71.7 % (45.0-75.0); PLATELET COUNT 323 K/UL (150-450); RED BLOOD COUNT 3.82 M/UL (4.20-5.40); RED CELL DISTRIBUTION WIDTH 17.4 % (11.6-14.8); WHITE BLOOD COUNT 8.6 K/UL (4.8-10.8)
--- NOTE | 2017-06-29 23:00 | Consultation ---
DATE OF CONSULTATION: 06/29/2017 INFECTIOUS DISEASES CONSULTATION REFERRING PHYSICIAN: Melanie Byrne M.D. assessed by Dr. Altman to see this patient. REASON FOR CONSULTATION: Urinary tract infection, possible sepsis, fevers, leukocytosis. The patient's chief complaint coming in the hospital is altered mental status. HISTORY OF PRESENT ILLNESS: This is a 71-year-old female who has history of urinary tract infection in the past including ESBL gram-negative and VRE. The patient presented with altered mental status, fevers, and leukocytosis to [facility]. The patient likely has complicated urinary tract infection with possible sepsis. Infectious Disease consultation requested. The patient will be placed on meropenem and Zyvox, pending urine culture results. Case communicated with Dr. Altman. 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 She has a history of atrial fibrillation. She has history of hypertension, history of GERD, history of CVA, history dementia, and history of neurological disease. She has a history of renal failure in the past, elevated creatinine, anemia, hyperlipidemia, history of depression, anxiety, and cerebral infarction. MEDICATIONS: Upon reviewing the MAR, she is on following medications. She is on linezolid, meropenem, mirtazapine. She is on heparin, Colace, aspirin, folic acid, Levetiracetam or Keppra, metoprolol, nifedipine, she is on tamsulosin, sulfasalazine or Azulfidine, hydralazine, acetaminophen, bisacodyl and Zofran. ALLERGIES: No known drug allergies. FAMILY HISTORY: Per the records, no mention of exposure to tuberculosis or cancer. SOCIAL HISTORY: Per the records, no mention of smoking, alcohol, or drug abuse. REVIEW OF SYSTEMS: She has a Prather. No central line. She has generalized weakness and fatigue. Poor historian.HEAD AND NECK: No obvious head pain or neck pain. CARDIAC: No chest pain or pressures. GASTROINTESTINAL: No nausea, vomiting or diarrhea. GENITOURINARY: She has a Prather. PULMONARY: No sputum, congestion, short of breath, or secretions. No hemoptysis SKIN: No rash. NEUROLOGIC: No seizures. Rest review of systems limited. PHYSICAL EXAMINATION: GENERAL: Alert, responsive, no acute distress. VITAL SIGNS: T-max 100.5 degrees, now it is 97.3 degrees, pulse rate has been as high as 101, respiratory rate 19, as high as 20, blood pressure is 131/82, and saturation 98%. HEAD AND NECK: Oral exam, no thrush. Eyes, no icterus. Normocephalic. No facial droop. No neck stiffness. Neck is supple. No JVD. LUNGS: Few bilateral rhonchi. No definite rales. Decreased breath sounds at bases. HEART: Regular. No gallops, rubs or murmurs. ABDOMEN: Soft. Positive bowel sounds. SKIN: No new rash noted. MUSCULOSKELETAL: No effusions. Legs are without cellulitis. PERIPHERAL VASCULAR: No cyanosis or gangrene. GENITOURINARY: The patient has a Prather. Urine is cloudy. LINES: Line sites without phlebitis. NEUROLOGIC: Generalized weakness, responsive, and poor historian. LABORATORY AND DIAGNOSTIC DATA: White count 11.5 and hemoglobin 11.3. Creatinine is 0.9. LFTs were noted. UA had 2+ leukocyte esterase, too many to count white blood cells, and many bacteria. Influenza screen is negative. Cultures are pending. Imaging studies are nonspecific. Chest x-ray shows left basal pleural parenchymal disease, correlate clinically unclear what this is exactly. Followup chest x-ray has been ordered. Creatinine 0.9. ASSESSMENT AND PLAN: 1. The patient has altered mental status, fevers, leukocytosis, possible sepsis. The patient likely has complicated urinary tract infection/pyelonephritis with too many count white blood cells on the urinalysis with secondary sepsis, fevers, and leukocytosis. Continue meropenem and Zyvox. The patient has history of vancomycin-resistant enterococcus and extended spectrum beta-lactamase gram-negative organisms. Continue antibiotics, Zyvox and meropenem. Check urine culture. Followup laboratories and chest x-ray. Unclear if the patient had pneumonia at this time, clinically she does not seem like it is. Her saturations are good. We will get followup chest x-ray to rule out any pneumonia. Case communicated with Dr. Altman. 2. The patient has history of anemia. 3. History of renal failure. 4. History of dementia. 5. History of cerebrovascular accident. 6. History of weakness. 7. Hypertension. 8. Blood pressure treatment per primary for hypertension. 9. History of atrial fibrillation. 10. Depression and anxiety. 11. Dysphagia, gastrostomy tube. 12. Gastroesophageal reflux disease. 13. Cerebral infarction. 14. History of urinary tract infections. 15. No history of diabetes. 16. Hyperlipidemia. 17. Skin care protocol. 18. Allergies are negative. 19. Family history noncontributory. 20. Social history is negative. 21. MAR was noted. 22. Case discussed with RN. 23. Continue treatment per primary consultants. 24. Case communicated with Dr. Altman. 25. Notes were reviewed. 26. Orders were noted. Bella Valdes M.D. DR: LETY JOB#: [id number] CC:
[2017-06-29] MEDS: NIFEdipine 10mg cap ORAL SCH (23:17)
[2017-06-30] VITALS: BP 137/79
[2017-06-30] MEDS: HydrALAZINE 10mg Tab ORAL SCH ×4 (01:13→17:23)
--- NOTE | 2017-06-30 01:15 | Consultation ---
DATE OF CONSULTATION: 06/29/2017 CONSULTING PHYSICIAN: Jaret Soares M.D. REFERRING PHYSICIAN: Agapito Butler M.D. REASON FOR CONSULTATION: For evaluation of hematuria and UTI. HISTORY OF PRESENT ILLNESS: This is a 71-year-old female. She is known to me from recent evaluation. I have seen the patient about a month ago because of UTI, hematuria, and difficult catheterization. I did place a Prather for her and she did have hematuria, which eventually cleared. She went back to the [place] [facility] and she was brought back to the emergency room because of altered mental status. She was noted to have UTI again. Apparently, a Prather catheter was changed in the emergency room. Some hematuria has been noted. Urology evaluation is requested. Most of the history was obtained from the chart. PAST MEDICAL HISTORY: Significant for above. Also hypertension, cerebrovascular accident, depression, atrial fibrillation, and dementia. PAST SURGICAL HISTORY: Unknown. CURRENT MEDICATIONS IN THE HOSPITAL: The patient is on Zyvox, Remeron, meropenem, heparin, Colace, aspirin, folate, Keppra, Lopressor, Procardia, Flomax, sulfasalazine, ampicillin, Tylenol, Dulcolax, MiraLAX, and Zofran. ALLERGIES: No known drug allergies. SOCIAL HISTORY: She is resident of a [place] [facility]. FAMILY HISTORY: Unable to obtain. REVIEW OF SYSTEMS: Unable to obtain. PHYSICAL EXAMINATION: GENERAL: An elderly female, confused. VITAL SIGNS: Temperature is 97.2, blood pressure is 131/82, pulse 78, and respirations 19. HEENT: Head is normocephalic. NECK: Supple. ABDOMEN: Soft. GENITOURINARY: Prather in place. Urine is dark michelle with sediment. EXTREMITIES: Slightly contracted. LABORATORY DATA: UA shows 3+ protein, too numerous to count RBCs, too numerous to count WBCs, many bacteria. White count is 11.5, hemoglobin 11.3, and platelets are 365. BUN is 27, creatinine 0.9, and potassium 4.5. There is no recent urine culture. Her culture from last month was noted. She had enterococcus and Anh. DIAGNOSTIC IMAGING STUDIES: The patient had a CT scan of the abdomen and pelvis back in October of 2016 and at that time, there was mention of a renal cyst, otherwise, no hydronephrosis or stones. IMPRESSION: 1. Hematuria. 2. Urinary retention. 3. Probable neurogenic bladder. 4. Urinary tract infection and colonization. 5. Proteinuria. 6. Renal cyst. PLAN AND DISCUSSION: Again as noted above, the patient does have hematuria as well as a UTI and probable colonized urine. Apparently, her Prather catheter has been changed in the emergency room. The new catheter is draining. I agree with antibiotics as ordered and irrigation of the Prather catheter on a p.r.n. basis. I do not see any evidence of active bleeding at this time. If she continues to have hematuria, we may consider holding her subcutaneous heparin and aspirin, and at some point, we will consider cystoscopy to evaluate the bladder. I will follow any other recommendation forthcoming. Thank you Dr. Butler for asking me to participate in this consultation. Jaret Soares M.D. DR: RAMON JOB#: [id number] CC: Tracie Dyer M.D. ; FAX#: [phone]
[2017-06-30 04:00] VITALS: BP 132/94
[2017-06-30] MEDS: SulfASALAZine 500MG tab ORAL SCH ×3 (06:14→17:22)
[2017-06-30 07:42] LABS: BASOPHILS % (AUTO) 0.6 % (0.0-2.0); EOSINOPHILS % (AUTO) 0.6 % (0.0-3.0); HEMOGLOBIN 11.7 G/DL (12.0-16.0); LYMPHOCYTES % (AUTO) 23.9 % (20.0-45.0); MEAN CORPUSCULAR VOLUME 86 FL (80-99); MONOCYTES % (AUTO) 9.6 % (1.0-10.0); NEUTROPHILS % (AUTO) 65.2 % (45.0-75.0); PLATELET COUNT 263 K/UL (150-450); RED BLOOD COUNT 4.28 M/UL (4.20-5.40); RED CELL DISTRIBUTION WIDTH 17.7 % (11.6-14.8); WHITE BLOOD COUNT 9.1 K/UL (4.8-10.8)
[2017-06-30 08:00] VITALS: BP 168/89
[2017-06-30 08:20] LABS: ALANINE AMINOTRANSFERASE 87 U/L (12-78); ALBUMIN/GLOBULIN RATIO 0.3 (1.0-2.7); ALKALINE PHOSPHATASE 152 U/L (46-116); ANION GAP 10 mmol/L (5-15); ASPARTATE AMINO TRANSFERASE 133 U/L (15-37); BLOOD UREA NITROGEN 21 mg/dL (7-18); CALCIUM 8.8 MG/DL (8.5-10.1); CARBON DIOXIDE 25 MMOL/L (21-32); CHLORIDE 103 MMOL/L (98-107); CREATININE 0.8 MG/DL (0.55-1.30); SODIUM 138 MMOL/L (136-145)
[2017-06-30 08:40] LABS: BILIRUBIN,TOTAL 0.7 MG/DL (0.2-1.0)
[2017-06-30] MEDS: Heparin 5000 units/ml inj SUBQ SCH ×2 (09:00→20:40)
[2017-06-30] MEDS: Docusate 100mg cap ORAL SCH ×2 (09:17→20:32)
--- NOTE | 2017-06-30 09:18 | Urology Progress Note ---
Assessment/Plan Assessment/Plan 1. Hematuria. 2. Urinary retention. 3. Probable neurogenic bladder. 4. Urinary tract infection and colonization. 5. Proteinuria. 6. Renal cyst. keep pruitt I personally hand irrigated pruitt, patent abx as ordered f/u on cx's cysto later d/w nursing staff Subjective Allergies: Coded Allergies: No Known Allergies (Unverified , 04/30/16) Subjective all noted, looks comfortable, more alert Objective Last 24 Hour Vital Signs Date Time Temp Pulse Resp B/P (MAP) Pulse Ox O2 Delivery O2 Flow Rate FiO2 06/30/17 06:14 132/94 06/30/17 04:00 97.7 94 20 132/94 98 06/30/17 01:13 137/79 06/30/17 00:00 98.1 90 20 137/79 98 06/30/17 00:00 Room Air 06/29/17 23:17 100 137/114 06/29/17 21:11 100 137/114 06/29/17 20:00 97.7 100 20 137/114 97 06/29/17 20:00 Room Air 06/29/17 18:17 145/80 06/29/17 16:00 97.3 78 19 131/82 98 06/29/17 12:30 97.3 83 20 101/64 98 06/29/17 12:14 105/57 06/29/17 10:21 100 129/79 06/29/17 10:20 100 129/79 Intake and Output 06/29/17 06/30/17 19:00 07:00 Intake Total 280 ml 880 ml Output Total 1000 ml 450 ml Balance -720 ml 430 ml Free Water 60 ml IV Total 200 ml Tube Feeding 280 ml 620 ml Output Urine Total 1000 ml 450 ml # Bowel Movements 1 Microbiology Date/Time Source Procedure Growth Status 06/29/17 00:45 Blood Blood Culture - Preliminary NO GROWTH AFTER 24 HOURS Resulted 06/29/17 01:27 Nose Influenza Types A,B Antigen (MARTHA) - Final Complete 06/29/17 18:00 Indwelling Cath Urine Culture - Preliminary NO GROWTH Resulted Current Medications Medications (Trade) Dose Ordered Sig/Renea Route PRN Reason Start Time Stop Time Status Last Admin Dose Admin Acetaminophen (Tylenol) 650 mg Q4H PRN ORAL Mild Pain (Pain Scale 1-3) 06/29/17 02:15 07/29/17 02:14 Acetaminophen (Tylenol) 650 mg Q4H PRN ORAL fever 06/29/17 02:15 07/29/17 02:14 Acetaminophen (Tylenol) 650 mg Q4H PRN RECTAL Mild Pain (Pain Scale 1-3) 06/29/17 02:15 07/29/17 02:14 Acetaminophen (Tylenol) 650 mg Q4H PRN RECTAL fever 06/29/17 02:15 07/29/17 02:14 Aspirin (ASA) 81 mg DAILY NG 06/29/17 09:00 07/29/17 08:59 06/29/17 10:18 Bisacodyl (Dulcolax) 10 mg HSPRN PRN RECTAL Constipation 06/29/17 02:15 07/29/17 02:14 Dextrose (Dextrose 50%) STAT PRN IV Hypoglycemia 06/29/17 02:15 07/29/17 02:14 Docusate Sodium (Colace) 100 mg EVERY 12 HOURS ORAL 06/29/17 09:00 07/29/17 08:59 06/29/17 21:09 Folic Acid (Folate) 1 mg DAILY ORAL 06/29/17 09:00 07/29/17 08:59 06/29/17 10:19 Heparin Sodium (Porcine) (Heparin 5000 units/ml) 5,000 units EVERY 12 HOURS SUBQ 06/29/17 09:00 07/29/17 08:59 Hydralazine HCl (Apresoline) 10 mg EVERY 6 HOURS ORAL 06/29/17 06:00 07/29/17 05:59 06/30/17 06:14 Levetiracetam (Keppra) 750 mg Q12HR NG 06/29/17 09:00 07/29/17 08:59 06/29/17 21:09 Linezolid 300 ml @ 300 mls/hr Q12HR@0200,1400 IVPB 06/30/17 02:00 07/07/17 01:59 06/29/17 16:54 Meropenem 1 gm/ Sodium Chloride 100 ml @ 200 mls/hr Q8HR IVPB 06/29/17 16:00 07/04/17 15:59 06/30/17 06:14 Metoprolol Tartrate (Lopressor) 50 mg EVERY 12 HOURS ORAL 06/29/17 09:00 07/29/17 08:59 06/29/17 21:11 Mirtazapine (Remeron) 15 mg BEDTIME ORAL 06/29/17 21:00 07/29/17 20:59 06/29/17 21:09 Nifedipine (Adalat) 30 mg Q12HR ORAL 06/29/17 22:15 07/29/17 22:14 06/29/17 23:17 Ondansetron HCl (Zofran) 4 mg Q6H PRN IVP Nausea & Vomiting 06/29/17 02:15 07/29/17 02:14 Polyethylene Glycol (Miralax) 17 gm HSPRN PRN ORAL Constipation 06/29/17 02:15 07/29/17 02:14 Sulfasalazine (Azulfidine) 500 mg BEFORE MEALS ORAL 06/29/17 06:30 07/29/17 06:29 06/30/17 06:14 Tamsulosin HCl (Flomax) 0.4 mg DAILY ORAL 06/29/17 09:00 07/29/17 08:59 06/29/17 10:26 Laboratory Tests 06/29/17 20:45: White Blood Count 8.6, Red Blood Count 3.82L, Hemoglobin 10.6L, Hematocrit 32.9L , Mean Corpuscular Volume 86, Mean Corpuscular Hemoglobin 27.6, Mean Corpuscular Hemoglobin Concent 32.1, Red Cell Distribution Width 17.4H, Platelet Count 323, Mean Platelet Volume 6.3L, Neutrophils (%) (Auto) 71.7, Lymphocytes (%) (Auto) 18.0L, Monocytes (%) (Auto) 8.7, Eosinophils (%) (Auto) 1.1, Basophils (%) (Auto) 0.5 06/30/17 05:05: White Blood Count 9.1, Red Blood Count 4.28, Hemoglobin 11.7L, Hematocrit 37.0, Mean Corpuscular Volume 86, Mean Corpuscular Hemoglobin 27.3, Mean Corpuscular Hemoglobin Concent 31.6L, Red Cell Distribution Width 17.7H, Platelet Count 263 , Mean Platelet Volume 7.3, Neutrophils (%) (Auto) 65.2, Lymphocytes (%) (Auto) 23.9, Monocytes (%) (Auto) 9.6, Eosinophils (%) (Auto) 0.6, Basophils (%) (Auto ) 0.6, Sodium Level 138, Potassium Level 4.0, Chloride Level 103, Carbon Dioxide Level 25, Anion Gap 10, Blood Urea Nitrogen 21H, Creatinine 0.8, Estimat Glomerular Filtration Rate , Glucose Level 111H, Calcium Level 8.8, Magnesium Level 1.7L, Total Bilirubin 0.7, Aspartate Amino Transf (AST/SGOT) 133H, Alanine Aminotransferase (ALT/SGPT) 87H, Alkaline Phosphatase 152H, Total Protein 8.1, Albumin 2.0L, Globulin 6.1, Albumin/Globulin Ratio 0.3L Height (Feet): 5 Height (Inches): 4.00 Weight (Pounds): 160 Objective exam stable, urine is michelle with some debris JOSH PENNINGTON Jun 30, 2017 09:18
[2017-06-30] MEDS: Tamsulosin 0.4mg cap ORAL SCH (09:19)
[2017-06-30] MEDS: Aspirin Baby 81mg NG SCH (09:21)
[2017-06-30] MEDS: Metoprolol Tartrate 50mg tab ORAL SCH ×2 (09:21→20:33)
[2017-06-30] MEDS: NIFEdipine 10mg cap ORAL SCH ×2 (09:22→20:36)
[2017-06-30] MEDS ORDERED: Haloperidol 1mg tab ORAL PRN (10:00)
--- NOTE | 2017-06-30 10:18 | Diagnostic Imaging Report ---
Indication: Cough Technique: One view of the chest Comparison: 06/29/2017 Findings: There is improved visualization of the left lateral hemidiaphragm, may reflect improving consolidation or pleural fluid. Lungs and pleural spaces are currently clear. The heart is borderline enlarged. Gastrostomy is again demonstrated Impression: Improved left lateral basilar opacity, may reflect improving pleural fluid or infiltrate. No acute process currently Other findings as described
[2017-06-30 11:51] VITALS: BP 144/74
[2017-06-30 16:00] VITALS: BP 115/55
[2017-06-30 20:00] VITALS: BP 134/65
[2017-07-01] VITALS: BP 117/64
[2017-07-01] MEDS: HydrALAZINE 10mg Tab ORAL SCH ×4 (00:02→18:08)
--- NOTE | 2017-07-01 00:26 | General Progress Note ---
Assessment/Plan Problem List: (1) Sepsis ICD Codes: A41.9 - Sepsis, unspecified organism SNOMED: 30005941 (2) Toxic metabolic encephalopathy ICD Codes: G92 - Toxic encephalopathy SNOMED: 968413372 (3) UTI (urinary tract infection) ICD Codes: N39.0 - Urinary tract infection, site not specified SNOMED: 23492601 Qualifiers: Qualified Codes: T83.511D - Infection and inflammatory reaction due to indwelling urethral catheter, subsequent encounter; N39.0 - Urinary tract infection, site not specified (4) Gross hematuria ICD Codes: R31.0 - Gross hematuria SNOMED: 708820682 (5) Seizure disorder ICD Codes: G40.909 - Epilepsy, unspecified, not intractable, without status epilepticus SNOMED: 400298355 (6) Atrial fibrillation ICD Codes: I48.91 - Unspecified atrial fibrillation SNOMED: 40209954 (7) HTN (hypertension) ICD Codes: I10 - Essential (primary) hypertension SNOMED: 69715734 (8) HLD (hyperlipidemia) ICD Codes: E78.5 - Hyperlipidemia, unspecified SNOMED: 45033224 (9) S/P percutaneous endoscopic gastrostomy (PEG) tube placement ICD Codes: Z93.1 - Gastrostomy status SNOMED: 233140246 (10) H/O: CVA (cerebrovascular accident) ICD Codes: Z86.73 - Personal history of transient ischemic attack (TIA), and cerebral infarction without residual deficits SNOMED: 790478757 Status: stable Assessment/Plan Empiric meropenem and linezolid for sepsis likely 2/2 UTI (06/29-) F/u cultures Urology consulted given gross hematuria s/p pruitt irrgiation by urology; hematuria now improved Pruitt exchanged in ED on 06/29 Trend CBC Pt was on Eliquis prior for Afib but held last admission given gross hematuria and vaginal bleeding. Appears it has not been restarted yet. Will hold off on restarting now as pt continues to have hematuria Cont SNF meds Pain control, bowel regimen Supportive care Cont tube feeds DVT Prophylaxis: SCD Code Status: Full Hospital Classification Declaration: Based on this initial evaluation, and depending on the patient's clinical course, I anticipate that this patient will require hospitalization for 2-3 days for sepsis, UTI and close respiratory/ hemodynamic monitoring. Disposition: Once the patient is stable to leave the hospital, I anticipate the patient will likely be discharged to the following environment: back to SNF Discussed with patient/family, nursing staff, SW/CM, ID, urology regarding clinical status, treatment course, and disposition planning. Time of note may not reflect time of encounter. Subjective Date patient seen: Jun 30, 2017 Time patient seen: 15:00 Constitutional: Reports: no symptoms HEENT: Reports: no symptoms Cardiovascular: Reports: no symptoms Respiratory: Reports: no symptoms Gastrointestinal/Abdominal: Reports: no symptoms Genitourinary: Reports: no symptoms Neurologic/Psychiatric: Reports: no symptoms Endocrine: Reports: no symptoms Hematologic/Lymphatic: Reports: no symptoms Allergies: Coded Allergies: No Known Allergies (Unverified , 04/30/16) Subjective No acute o/n events Agitated this AM, but now improved Awake, alert, Denies pain, SOB Unable to obtain complete ROS given AMS Objective Last 24 Hour Vital Signs Date Time Temp Pulse Resp B/P (MAP) Pulse Ox O2 Delivery O2 Flow Rate FiO2 07/01/17 00:02 117/67 06/30/17 20:36 99 134/65 06/30/17 20:33 99 134/65 06/30/17 20:00 98.2 99 20 134/65 93 Room Air 06/30/17 17:23 155/83 06/30/17 16:00 98.2 101 20 115/55 96 06/30/17 12:40 155/78 06/30/17 11:51 98.0 99 20 144/74 95 06/30/17 09:22 78 168/82 06/30/17 09:21 78 168/82 06/30/17 08:00 98.4 105 20 168/89 95 06/30/17 06:14 132/94 06/30/17 04:00 97.7 94 20 132/94 98 06/30/17 01:13 137/79 Intake and Output 06/30/17 07/01/17 19:00 07:00 Intake Total 1060 ml 330 ml Output Total 550 ml Balance 510 ml 330 ml Free Water 30 ml Tube Feeding 720 ml 300 ml Other 340 ml Output Urine Total 550 ml Laboratory Tests 06/30/17 05:05: White Blood Count 9.1, Red Blood Count 4.28, Hemoglobin 11.7L, Hematocrit 37.0, Mean Corpuscular Volume 86, Mean Corpuscular Hemoglobin 27.3, Mean Corpuscular Hemoglobin Concent 31.6L, Red Cell Distribution Width 17.7H, Platelet Count 263 , Mean Platelet Volume 7.3, Neutrophils (%) (Auto) 65.2, Lymphocytes (%) (Auto) 23.9, Monocytes (%) (Auto) 9.6, Eosinophils (%) (Auto) 0.6, Basophils (%) (Auto ) 0.6, Sodium Level 138, Potassium Level 4.0, Chloride Level 103, Carbon Dioxide Level 25, Anion Gap 10, Blood Urea Nitrogen 21H, Creatinine 0.8, Estimat Glomerular Filtration Rate , Glucose Level 111H, Calcium Level 8.8, Magnesium Level 1.7L, Total Bilirubin 0.7, Aspartate Amino Transf (AST/SGOT) 133H, Alanine Aminotransferase (ALT/SGPT) 87H, Alkaline Phosphatase 152H, Total Protein 8.1, Albumin 2.0L, Globulin 6.1, Albumin/Globulin Ratio 0.3L Height (Feet): 5 Height (Inches): 4.00 Weight (Pounds): 160 Objective General: alert, cooperative, no distress, appears stated age, confused Head: normocephalic, without obvious abnormality, atraumatic Eyes: conjunctivae/corneas clear. PERRL, EOM's intact Throat: lips, mucosa, and tongue normal. MMM Neck: supple, symmetrical, trachea midline, and no JVD Lungs: clear to auscultation bilaterally Heart: regular rate and rhythm, S1, S2 normal, no murmur, click, rub or gallop Abdomen: soft, non-tender, non-distended, bowel sounds normal; +PEG c/d/u : pruitt bag with blood Extremities: extremities normal, atraumatic, no cyanosis or edema Pulses: 2+ and symmetric Skin: skin color, texture, turgor normal; no rashes or lesions Neurologic: grossly normal, no focal deficits Agapito Butler M.D. Jul 01, 2017 00:26
[2017-07-01 04:00] VITALS: BP 130/82
[2017-07-01] MEDS: SulfASALAZine 500MG tab ORAL SCH ×3 (05:02→16:30)
[2017-07-01 07:41] LABS: ANION GAP 7 mmol/L (5-15); BLOOD UREA NITROGEN 19 mg/dL (7-18); CALCIUM 8.6 MG/DL (8.5-10.1); CARBON DIOXIDE 27 MMOL/L (21-32); CHLORIDE 105 MMOL/L (98-107); CREATININE 0.8 MG/DL (0.55-1.30); POTASSIUM 4.1 MMOL/L (3.5-5.1); SODIUM 139 MMOL/L (136-145)
[2017-07-01 08:03] LABS: BASOPHILS % (AUTO) 0.7 % (0.0-2.0); EOSINOPHILS % (AUTO) 2.5 % (0.0-3.0); HEMATOCRIT 35.4 % (37.0-47.0); HEMOGLOBIN 11.3 G/DL (12.0-16.0); LYMPHOCYTES % (AUTO) 22.2 % (20.0-45.0); MEAN CORPUSCULAR VOLUME 86 FL (80-99); NEUTROPHILS % (AUTO) 64.6 % (45.0-75.0); PLATELET COUNT 350 K/UL (150-450); RED BLOOD COUNT 4.14 M/UL (4.20-5.40); WHITE BLOOD COUNT 7.4 K/UL (4.8-10.8)
[2017-07-01 08:19] VITALS: BP 143/81
[2017-07-01] MEDS: Heparin 5000 units/ml inj SUBQ SCH ×2 (09:00→21:00)
--- NOTE | 2017-07-01 09:26 | Urology Progress Note ---
Assessment/Plan Assessment/Plan 1. Hematuria. 2. Urinary retention. 3. Probable neurogenic bladder. 4. Urinary tract infection and colonization. 5. Proteinuria. 6. Renal cyst. keep pruitt I personally hand irrigated pruitt, patent abx as ordered f/u on cx's cysto later d/w nursing staff Subjective Allergies: Coded Allergies: No Known Allergies (Unverified , 04/30/16) Subjective all noted, looks comfortable, more alert Objective Last 24 Hour Vital Signs Date Time Temp Pulse Resp B/P (MAP) Pulse Ox O2 Delivery O2 Flow Rate FiO2 07/01/17 08:19 98.1 105 20 143/81 98 07/01/17 05:03 130/82 07/01/17 04:00 97.7 96 18 130/82 92 Room Air 07/01/17 00:02 117/67 07/01/17 00:00 98.0 77 19 117/64 98 Room Air 06/30/17 20:36 99 134/65 06/30/17 20:33 99 134/65 06/30/17 20:00 98.2 99 20 134/65 93 Room Air 06/30/17 17:23 155/83 06/30/17 16:00 98.2 101 20 115/55 96 06/30/17 12:40 155/78 06/30/17 11:51 98.0 99 20 144/74 95 Intake and Output 06/30/17 07/01/17 19:00 07:00 Intake Total 1060 ml 1280 ml Output Total 550 ml 500 ml Balance 510 ml 780 ml Free Water 60 ml IV Total 500 ml Tube Feeding 720 ml 720 ml Other 340 ml Output Urine Total 550 ml 500 ml # Bowel Movements 1 Microbiology Date/Time Source Procedure Growth Status 06/29/17 00:45 Blood Blood Culture - Preliminary NO GROWTH AFTER 48 HOURS Resulted 06/29/17 01:27 Nose Influenza Types A,B Antigen (MARTHA) - Final Complete 06/29/17 18:00 Indwelling Cath Urine Culture - Preliminary Gram Negative Bacillus 1 Gram Negative Bacillus 2 Resulted 06/29/17 01:27 Rectum VRE Culture - Final Enterococcus Faecium - Vre Complete Current Medications Medications (Trade) Dose Ordered Sig/Renea Route PRN Reason Start Time Stop Time Status Last Admin Dose Admin Acetaminophen (Tylenol) 650 mg Q4H PRN ORAL Mild Pain (Pain Scale 1-3) 06/29/17 02:15 07/29/17 02:14 06/30/17 09:19 Acetaminophen (Tylenol) 650 mg Q4H PRN ORAL fever 06/29/17 02:15 07/29/17 02:14 Acetaminophen (Tylenol) 650 mg Q4H PRN RECTAL Mild Pain (Pain Scale 1-3) 06/29/17 02:15 07/29/17 02:14 Acetaminophen (Tylenol) 650 mg Q4H PRN RECTAL fever 06/29/17 02:15 07/29/17 02:14 Aspirin (ASA) 81 mg DAILY NG 06/29/17 09:00 07/29/17 08:59 06/30/17 09:21 Bisacodyl (Dulcolax) 10 mg HSPRN PRN RECTAL Constipation 06/29/17 02:15 07/29/17 02:14 Dextrose (Dextrose 50%) STAT PRN IV Hypoglycemia 06/29/17 02:15 07/29/17 02:14 Docusate Sodium (Colace) 100 mg EVERY 12 HOURS ORAL 06/29/17 09:00 07/29/17 08:59 06/30/17 20:32 Folic Acid (Folate) 1 mg DAILY ORAL 06/29/17 09:00 07/29/17 08:59 06/30/17 09:23 Haloperidol (Haldol) 2 mg Q6H PRN ORAL Agitation 06/30/17 10:00 07/30/17 09:59 Heparin Sodium (Porcine) (Heparin 5000 units/ml) 5,000 units EVERY 12 HOURS SUBQ 06/29/17 09:00 07/29/17 08:59 Hydralazine HCl (Apresoline) 10 mg EVERY 6 HOURS ORAL 06/29/17 06:00 07/29/17 05:59 07/01/17 05:03 Levetiracetam (Keppra) 750 mg Q12HR NG 06/29/17 09:00 07/29/17 08:59 06/30/17 20:34 Linezolid 300 ml @ 300 mls/hr Q12HR@0200,1400 IVPB 06/30/17 02:00 07/07/17 01:59 07/01/17 02:15 Meropenem 1 gm/ Sodium Chloride 100 ml @ 200 mls/hr Q8HR IVPB 06/29/17 16:00 07/04/17 15:59 07/01/17 05:03 Metoprolol Tartrate (Lopressor) 50 mg EVERY 12 HOURS ORAL 06/29/17 09:00 07/29/17 08:59 06/30/17 20:33 Mirtazapine (Remeron) 15 mg BEDTIME ORAL 06/29/17 21:00 07/29/17 20:59 06/30/17 20:34 Nifedipine (Adalat) 30 mg Q12HR ORAL 06/29/17 22:15 07/29/17 22:14 06/30/17 20:36 Ondansetron HCl (Zofran) 4 mg Q6H PRN IVP Nausea & Vomiting 06/29/17 02:15 07/29/17 02:14 Polyethylene Glycol (Miralax) 17 gm HSPRN PRN ORAL Constipation 06/29/17 02:15 07/29/17 02:14 Sulfasalazine (Azulfidine) 500 mg BEFORE MEALS ORAL 06/29/17 06:30 07/29/17 06:29 07/01/17 05:02 Tamsulosin HCl (Flomax) 0.4 mg DAILY ORAL 06/29/17 09:00 07/29/17 08:59 06/30/17 09:19 Laboratory Tests 07/01/17 06:00: White Blood Count 7.4, Red Blood Count 4.14L, Hemoglobin 11.3L, Hematocrit 35.4L , Mean Corpuscular Volume 86, Mean Corpuscular Hemoglobin 27.4, Mean Corpuscular Hemoglobin Concent 32.0, Red Cell Distribution Width 17.0H, Platelet Count 350, Mean Platelet Volume 6.5, Neutrophils (%) (Auto) 64.6, Lymphocytes (%) (Auto) 22.2, Monocytes (%) (Auto) 10.0, Eosinophils (%) (Auto) 2.5, Basophils (%) (Auto) 0.7, Sodium Level 139, Potassium Level 4.1, Chloride Level 105, Carbon Dioxide Level 27, Anion Gap 7, Blood Urea Nitrogen 19H, Creatinine 0.8, Estimat Glomerular Filtration Rate , Glucose Level 127H, Calcium Level 8.6 Height (Feet): 5 Height (Inches): 4.00 Weight (Pounds): 160 Objective exam stable, urine is michelle with some debris JOSH PENNINGTON Jul 01, 2017 09:26
[2017-07-01] MEDS: Tamsulosin 0.4mg cap ORAL SCH (10:35)
[2017-07-01] MEDS: NIFEdipine 10mg cap ORAL SCH ×2 (10:37→22:12)
[2017-07-01] MEDS: Metoprolol Tartrate 50mg tab ORAL SCH ×2 (10:37→22:13)
[2017-07-01] MEDS: Docusate 100mg cap ORAL SCH ×2 (10:39→22:13)
[2017-07-01 11:45] VITALS: BP 123/69
--- NOTE | 2017-07-01 14:38 | Infectious Diseases Prog Note ---
Assessment/Plan Assessment/Plan ASSESSMENT AND PLAN: 1. gram neg uti/pyelonephritis, sepsis, leukocytosis, fevers, ? pna - meropenem - day # 3 - discontinue zyvox - check final urine culture - check labs - chest x-ray better - d/w Dr. Altman 2. The patient has history of anemia. 3. History of renal failure. 4. History of dementia. 5. History of cerebrovascular accident. 6. History of weakness. 7. Hypertension. 8. Blood pressure treatment per primary for hypertension. 9. History of atrial fibrillation. 10. Depression and anxiety. 11. Dysphagia, gastrostomy tube. 12. Gastroesophageal reflux disease. 13. Cerebral infarction. 14. History of urinary tract infections. 15. No history of diabetes. 16. Hyperlipidemia. 17. Skin care protocol. 18. Allergies are negative. 19. Family history noncontributory. 20. Social history is negative. 21. MAR was noted. 22. Case discussed with RN. 23. Continue treatment per primary consultants. 24. Case d/w Dr. Altman. 25. Notes were reviewed. 26. Orders were noted. 27. vre colonization and isolation Subjective Constitutional: Denies: fever HEENT: Denies: congestion Respiratory: Denies: shortness of breath Cardiovascular: Denies: chest pain Gastrointestinal/Abdominal: Denies: nausea, vomiting, diarrhea Genitourinary: Reports: other - + pruitt - urine cloudy Neurologic: Denies: headache Psychiatric: Denies: depression Skin: Denies: rash Hematologic: Denies: bleeding Musculoskeletal: Denies: pain Allergies: Coded Allergies: No Known Allergies (Unverified , 04/30/16) Objective Vital Signs Last 24 Hour Vital Signs Date Time Temp Pulse Resp B/P (MAP) Pulse Ox O2 Delivery O2 Flow Rate FiO2 07/01/17 11:45 97.8 99 20 123/69 99 07/01/17 10:37 135/89 07/01/17 10:37 135/89 07/01/17 08:19 98.1 105 20 143/81 98 07/01/17 05:03 130/82 07/01/17 04:00 97.7 96 18 130/82 92 Room Air 07/01/17 00:02 117/67 07/01/17 00:00 98.0 77 19 117/64 98 Room Air 06/30/17 20:36 99 134/65 06/30/17 20:33 99 134/65 06/30/17 20:00 98.2 99 20 134/65 93 Room Air 06/30/17 17:23 155/83 06/30/17 16:00 98.2 101 20 115/55 96 Height (Feet): 5 Height (Inches): 4.00 Weight (Pounds): 160 General Appearance: no acute distress HEENT: normocephalic, atraumatic, anicteric, mucous membranes moist Respiratory/Chest: lungs clear, normal breath sounds, no respiratory distress, no accessory muscle use Cardiovascular: normal rate, regular rhythm, no gallop/murmur, no JVD Abdomen: normal bowel sounds, soft, non tender, no organomegaly, non distended Genitourinary: other - + pruitt - urine cloudy Extremities: no cyanosis Skin: no rash 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 No acute process currently Other findings as described Microbiology Date/Time Source Procedure Growth Status 06/29/17 00:45 Blood Blood Culture - Preliminary NO GROWTH AFTER 48 HOURS Resulted 06/29/17 00:40 Blood Blood Culture - Preliminary NO GROWTH AFTER 48 HOURS Resulted 06/29/17 01:27 Nose MRSA Culture - Final NO METHICILLIN RESISTANT STAPH AUREUS... Complete 06/29/17 01:27 Nose Influenza Types A,B Antigen (MARTHA) - Final Complete 06/29/17 18:00 Indwelling Cath Urine Culture - Preliminary Gram Negative Bacillus 1 Gram Negative Bacillus 2 Resulted 06/29/17 00:40 Urine,Clean Catch Urine Culture - Preliminary Gram Negative Bacillus 1 Gram Negative Bacillus 2 Resulted 06/29/17 01:27 Rectum VRE Culture - Final Enterococcus Faecium - Vre Complete Laboratory Tests Test 07/01/17 06:00 White Blood Count 7.4 K/UL (4.8-10.8) Red Blood Count 4.14 M/UL (4.20-5.40) L Hemoglobin 11.3 G/DL (12.0-16.0) L Hematocrit 35.4 % (37.0-47.0) L Mean Corpuscular Volume 86 FL (80-99) Mean Corpuscular Hemoglobin 27.4 PG (27.0-31.0) Mean Corpuscular Hemoglobin Concent 32.0 G/DL (32.0-36.0) Red Cell Distribution Width 17.0 % (11.6-14.8) H Platelet Count 350 K/UL (150-450) Mean Platelet Volume 6.5 FL (6.5-10.1) Neutrophils (%) (Auto) 64.6 % (45.0-75.0) Lymphocytes (%) (Auto) 22.2 % (20.0-45.0) Monocytes (%) (Auto) 10.0 % (1.0-10.0) Eosinophils (%) (Auto) 2.5 % (0.0-3.0) Basophils (%) (Auto) 0.7 % (0.0-2.0) Sodium Level 139 MMOL/L (136-145) Potassium Level 4.1 MMOL/L (3.5-5.1) Chloride Level 105 MMOL/L (98-107) Carbon Dioxide Level 27 MMOL/L (21-32) Anion Gap 7 mmol/L (5-15) Blood Urea Nitrogen 19 mg/dL (7-18) H Creatinine 0.8 MG/DL (0.55-1.30) Estimat Glomerular Filtration Rate mL/min (>60) Glucose Level 127 MG/DL (74-106) H Calcium Level 8.6 MG/DL (8.5-10.1) Current Medications Medications (Trade) Dose Ordered Sig/Renea Route PRN Reason Start Time Stop Time Status Last Admin Dose Admin Acetaminophen (Tylenol) 650 mg Q4H PRN ORAL Mild Pain (Pain Scale 1-3) 06/29/17 02:15 07/29/17 02:14 06/30/17 09:19 Acetaminophen (Tylenol) 650 mg Q4H PRN ORAL fever 06/29/17 02:15 07/29/17 02:14 Acetaminophen (Tylenol) 650 mg Q4H PRN RECTAL Mild Pain (Pain Scale 1-3) 06/29/17 02:15 07/29/17 02:14 Acetaminophen (Tylenol) 650 mg Q4H PRN RECTAL fever 06/29/17 02:15 07/29/17 02:14 Aspirin (ASA) 81 mg DAILY NG 06/29/17 09:00 07/29/17 08:59 06/30/17 09:21 Bisacodyl (Dulcolax) 10 mg HSPRN PRN RECTAL Constipation 06/29/17 02:15 07/29/17 02:14 Dextrose (Dextrose 50%) STAT PRN IV Hypoglycemia 06/29/17 02:15 07/29/17 02:14 Docusate Sodium (Colace) 100 mg EVERY 12 HOURS ORAL 06/29/17 09:00 07/29/17 08:59 07/01/17 10:39 Folic Acid (Folate) 1 mg DAILY ORAL 06/29/17 09:00 07/29/17 08:59 06/30/17 09:23 Haloperidol (Haldol) 2 mg Q6H PRN ORAL Agitation 06/30/17 10:00 07/30/17 09:59 Heparin Sodium (Porcine) (Heparin 5000 units/ml) 5,000 units EVERY 12 HOURS SUBQ 06/29/17 09:00 07/29/17 08:59 Hydralazine HCl (Apresoline) 10 mg EVERY 6 HOURS ORAL 06/29/17 06:00 07/29/17 05:59 07/01/17 05:03 Levetiracetam (Keppra) 750 mg Q12HR NG 06/29/17 09:00 07/29/17 08:59 07/01/17 10:39 Linezolid 300 ml @ 300 mls/hr Q12HR@0200,1400 IVPB 06/30/17 02:00 07/07/17 01:59 07/01/17 02:15 Meropenem 1 gm/ Sodium Chloride 100 ml @ 200 mls/hr Q8HR IVPB 06/29/17 16:00 07/04/17 15:59 07/01/17 05:03 Metoprolol Tartrate (Lopressor) 50 mg EVERY 12 HOURS ORAL 06/29/17 09:00 07/29/17 08:59 07/01/17 10:37 Mirtazapine (Remeron) 15 mg BEDTIME ORAL 06/29/17 21:00 07/29/17 20:59 06/30/17 20:34 Nifedipine (Adalat) 30 mg Q12HR ORAL 06/29/17 22:15 07/29/17 22:14 07/01/17 10:37 Ondansetron HCl (Zofran) 4 mg Q6H PRN IVP Nausea & Vomiting 06/29/17 02:15 07/29/17 02:14 Polyethylene Glycol (Miralax) 17 gm HSPRN PRN ORAL Constipation 06/29/17 02:15 07/29/17 02:14 Sulfasalazine (Azulfidine) 500 mg BEFORE MEALS ORAL 06/29/17 06:30 07/29/17 06:29 07/01/17 05:02 Tamsulosin HCl (Flomax) 0.4 mg DAILY ORAL 06/29/17 09:00 07/29/17 08:59 07/01/17 10:35 AMPARO HARRISON Jul 01, 2017 14:38
[2017-07-01] MEDS ORDERED: Tubing IV Secondary IV ONE (15:22)
[2017-07-01] MEDS ORDERED: NS 500ML ONE (15:22)
[2017-07-01 15:54] VITALS: BP 135/95
[2017-07-01 19:53] VITALS: BP 126/71
[2017-07-02] VITALS: BP 116/76
[2017-07-02] MEDS: HydrALAZINE 10mg Tab ORAL SCH ×4 (00:38→17:54)
[2017-07-02 04:00] VITALS: BP 135/95
[2017-07-02] MEDS: SulfASALAZine 500MG tab ORAL SCH ×3 (05:26→17:55)
[2017-07-02 07:05] LABS: HEMATOCRIT 34.3 % (37.0-47.0); HEMOGLOBIN 11.4 G/DL (12.0-16.0); MEAN CORPUSCULAR VOLUME 85 FL (80-99); PLATELET COUNT 302 K/UL (150-450); RED BLOOD COUNT 4.02 M/UL (4.20-5.40); RED CELL DISTRIBUTION WIDTH 16.4 % (11.6-14.8); WHITE BLOOD COUNT 5.9 K/UL (4.8-10.8)
[2017-07-02 07:22] LABS: ANION GAP 5 mmol/L (5-15); BLOOD UREA NITROGEN 18 mg/dL (7-18); CALCIUM 8.6 MG/DL (8.5-10.1); CARBON DIOXIDE 28 MMOL/L (21-32); CHLORIDE 105 MMOL/L (98-107); CREATININE 0.8 MG/DL (0.55-1.30); POTASSIUM 3.9 MMOL/L (3.5-5.1); SODIUM 138 MMOL/L (136-145)
--- NOTE | 2017-07-02 07:52 | General Progress Note ---
Assessment/Plan Problem List: (1) Sepsis ICD Codes: A41.9 - Sepsis, unspecified organism SNOMED: 51462389 (2) Toxic metabolic encephalopathy ICD Codes: G92 - Toxic encephalopathy SNOMED: 081207289 (3) UTI (urinary tract infection) ICD Codes: N39.0 - Urinary tract infection, site not specified SNOMED: 31152240 Qualifiers: Qualified Codes: T83.511D - Infection and inflammatory reaction due to indwelling urethral catheter, subsequent encounter; N39.0 - Urinary tract infection, site not specified (4) Gross hematuria Assessment & Plan: possibly 2/2 pruitt trauma ICD Codes: R31.0 - Gross hematuria SNOMED: 206382744 (5) Seizure disorder ICD Codes: G40.909 - Epilepsy, unspecified, not intractable, without status epilepticus SNOMED: 157681371 (6) Atrial fibrillation ICD Codes: I48.91 - Unspecified atrial fibrillation SNOMED: 89393390 (7) HTN (hypertension) ICD Codes: I10 - Essential (primary) hypertension SNOMED: 34991459 (8) HLD (hyperlipidemia) ICD Codes: E78.5 - Hyperlipidemia, unspecified SNOMED: 16285535 (9) S/P percutaneous endoscopic gastrostomy (PEG) tube placement ICD Codes: Z93.1 - Gastrostomy status SNOMED: 532741248 (10) H/O: CVA (cerebrovascular accident) ICD Codes: Z86.73 - Personal history of transient ischemic attack (TIA), and cerebral infarction without residual deficits SNOMED: 590705165 Status: stable Assessment/Plan Empiric meropenem and linezolid for sepsis likely 2/2 UTI (06/29-) F/u cultures--urine cx shows GNR Urology consulted given gross hematuria s/p pruitt irrigation by urology; hematuria now improved Pruitt exchanged in ED on 06/29 Trend CBC Pt was on Eliquis prior for Afib but held last admission given gross hematuria and vaginal bleeding. Appears it has not been restarted yet. Will hold off on restarting now as pt continues to have hematuria Cont SNF meds Pain control, bowel regimen Supportive care Cont tube feeds Possible d/c back to SNF tomorrow DVT Prophylaxis: SCD Code Status: Full Hospital Classification Declaration: Based on this initial evaluation, and depending on the patient's clinical course, I anticipate that this patient will require hospitalization for 1-2 days for sepsis, UTI and close respiratory/ hemodynamic monitoring. Disposition: Once the patient is stable to leave the hospital, I anticipate the patient will likely be discharged to the following environment: back to SNF Discussed with patient/family, nursing staff, SW/CM, ID, urology regarding clinical status, treatment course, and disposition planning. D/w ID re abx. D/w urology re hematuria Time of note may not reflect time of encounter. Subjective Date patient seen: Jul 01, 2017 Time patient seen: 11:00 ROS Limited/Unobtainable: Yes Allergies: Coded Allergies: No Known Allergies (Unverified , 04/30/16) Subjective No acute o/n events Agitation improved. More lethargic this AM but arousable Unable to obtain complete ROS given AMS Objective Last 24 Hour Vital Signs Date Time Temp Pulse Resp B/P (MAP) Pulse Ox O2 Delivery O2 Flow Rate FiO2 07/02/17 05:26 135/95 07/02/17 04:00 98.2 81 20 135/95 100 07/02/17 00:38 116/76 07/02/17 00:00 98.4 85 18 116/76 100 07/01/17 22:13 105 126/71 07/01/17 22:12 105 126/71 07/01/17 19:53 98.2 105 19 126/71 100 07/01/17 18:08 136/81 07/01/17 15:54 98.4 101 20 135/95 99 07/01/17 14:51 138/82 07/01/17 11:45 97.8 99 20 123/69 99 07/01/17 10:37 135/89 07/01/17 10:37 135/89 07/01/17 08:19 98.1 105 20 143/81 98 Intake and Output 07/01/17 07/02/17 19:00 07:00 Intake Total 1530 ml 1010 ml Output Total 700 ml Balance 830 ml 1010 ml Free Water 90 ml IV Total 200 ml Tube Feeding 1140 ml 720 ml Other 390 ml Output Urine Total 700 ml # Bowel Movements 1 Laboratory Tests 07/02/17 04:45: White Blood Count 5.9, Red Blood Count 4.02L, Hemoglobin 11.4L, Hematocrit 34.3L , Mean Corpuscular Volume 85, Mean Corpuscular Hemoglobin 28.3, Mean Corpuscular Hemoglobin Concent 33.2, Red Cell Distribution Width 16.4H, Platelet Count 302, Mean Platelet Volume 6.6, Neutrophils (%) (Auto) , Lymphocytes (%) (Auto) , Monocytes (%) (Auto) , Eosinophils (%) (Auto) , Basophils (%) (Auto) , Neutrophils % (Manual) [Pending], Lymphocytes % (Manual) [Pending], Platelet Estimate [Pending], Platelet Morphology [Pending], Sodium Level 138, Potassium Level 3.9, Chloride Level 105, Carbon Dioxide Level 28, Anion Gap 5, Blood Urea Nitrogen 18, Creatinine 0.8, Estimat Glomerular Filtration Rate , Glucose Level 121H, Calcium Level 8.6 Height (Feet): 5 Height (Inches): 4.00 Weight (Pounds): 160 Objective General: alert, cooperative, no distress, appears stated age, confused Head: normocephalic, without obvious abnormality, atraumatic Eyes: conjunctivae/corneas clear. PERRL, EOM's intact Throat: lips, mucosa, and tongue normal. MMM Neck: supple, symmetrical, trachea midline, and no JVD Lungs: clear to auscultation bilaterally Heart: regular rate and rhythm, S1, S2 normal, no murmur, click, rub or gallop Abdomen: soft, non-tender, non-distended, bowel sounds normal; +PEG c/d/u : pruitt bag with blood Extremities: extremities normal, atraumatic, no cyanosis or edema Pulses: 2+ and symmetric Skin: skin color, texture, turgor normal; no rashes or lesions Neurologic: grossly normal, no focal deficits Agapito Butler M.D. Jul 02, 2017 07:52
[2017-07-02 08:00] VITALS: BP 130/93
--- NOTE | 2017-07-02 09:24 | Urology Progress Note ---
Assessment/Plan Assessment/Plan 1. Hematuria. 2. Urinary retention. 3. Probable neurogenic bladder. 4. Urinary tract infection and colonization. 5. Proteinuria. 6. Renal cyst. keep pruitt I personally hand irrigated pruitt, patent abx as ordered f/u on cx's cysto later Subjective Allergies: Coded Allergies: No Known Allergies (Unverified , 04/30/16) Subjective all noted, looks comfortable, more alert Objective Last 24 Hour Vital Signs Date Time Temp Pulse Resp B/P (MAP) Pulse Ox O2 Delivery O2 Flow Rate FiO2 07/02/17 08:00 96.1 83 19 130/93 100 07/02/17 05:26 135/95 07/02/17 04:00 98.2 81 20 135/95 100 07/02/17 00:38 116/76 07/02/17 00:00 98.4 85 18 116/76 100 07/01/17 22:13 105 126/71 07/01/17 22:12 105 126/71 07/01/17 19:53 98.2 105 19 126/71 100 07/01/17 18:08 136/81 07/01/17 15:54 98.4 101 20 135/95 99 07/01/17 14:51 138/82 07/01/17 11:45 97.8 99 20 123/69 99 07/01/17 10:37 135/89 07/01/17 10:37 135/89 Intake and Output 07/01/17 07/02/17 19:00 07:00 Intake Total 1530 ml 1010 ml Output Total 700 ml Balance 830 ml 1010 ml Free Water 90 ml IV Total 200 ml Tube Feeding 1140 ml 720 ml Other 390 ml Output Urine Total 700 ml # Bowel Movements 1 2 Microbiology Date/Time Source Procedure Growth Status 06/29/17 00:45 Blood Blood Culture - Preliminary NO GROWTH AFTER 72 HOURS Resulted 06/29/17 01:27 Nose MRSA Culture - Final NO METHICILLIN RESISTANT STAPH AUREUS... Complete 06/29/17 18:00 Indwelling Cath Urine Culture - Preliminary Gram Negative Bacillus 1 Gram Negative Bacillus 2 Resulted 06/29/17 01:27 Rectum VRE Culture - Final Enterococcus Faecium - Vre Complete Current Medications Medications (Trade) Dose Ordered Sig/Renea Route PRN Reason Start Time Stop Time Status Last Admin Dose Admin Acetaminophen (Tylenol) 650 mg Q4H PRN ORAL Mild Pain (Pain Scale 1-3) 06/29/17 02:15 07/29/17 02:14 07/02/17 00:40 Acetaminophen (Tylenol) 650 mg Q4H PRN ORAL fever 06/29/17 02:15 07/29/17 02:14 Acetaminophen (Tylenol) 650 mg Q4H PRN RECTAL Mild Pain (Pain Scale 1-3) 06/29/17 02:15 07/29/17 02:14 Acetaminophen (Tylenol) 650 mg Q4H PRN RECTAL fever 06/29/17 02:15 07/29/17 02:14 Aspirin (ASA) 81 mg DAILY NG 06/29/17 09:00 07/29/17 08:59 06/30/17 09:21 Bisacodyl (Dulcolax) 10 mg HSPRN PRN RECTAL Constipation 06/29/17 02:15 07/29/17 02:14 Dextrose (Dextrose 50%) STAT PRN IV Hypoglycemia 06/29/17 02:15 07/29/17 02:14 Docusate Sodium (Colace) 100 mg EVERY 12 HOURS ORAL 06/29/17 09:00 07/29/17 08:59 07/01/17 22:13 Folic Acid (Folate) 1 mg DAILY ORAL 06/29/17 09:00 07/29/17 08:59 07/01/17 14:51 Haloperidol (Haldol) 2 mg Q6H PRN ORAL Agitation 06/30/17 10:00 07/30/17 09:59 07/01/17 22:11 Heparin Sodium (Porcine) (Heparin 5000 units/ml) 5,000 units EVERY 12 HOURS SUBQ 06/29/17 09:00 07/29/17 08:59 Hydralazine HCl (Apresoline) 10 mg EVERY 6 HOURS ORAL 06/29/17 06:00 07/29/17 05:59 07/02/17 05:26 Levetiracetam (Keppra) 750 mg Q12HR NG 06/29/17 09:00 07/29/17 08:59 07/01/17 22:12 Meropenem 1 gm/ Sodium Chloride 100 ml @ 200 mls/hr Q8HR IVPB 06/29/17 16:00 07/04/17 15:59 07/02/17 05:25 Metoprolol Tartrate (Lopressor) 50 mg EVERY 12 HOURS ORAL 06/29/17 09:00 07/29/17 08:59 07/01/17 22:13 Mirtazapine (Remeron) 15 mg BEDTIME ORAL 06/29/17 21:00 07/29/17 20:59 07/01/17 22:13 Nifedipine (Adalat) 30 mg Q12HR ORAL 06/29/17 22:15 07/29/17 22:14 07/01/17 22:12 Ondansetron HCl (Zofran) 4 mg Q6H PRN IVP Nausea & Vomiting 06/29/17 02:15 07/29/17 02:14 Polyethylene Glycol (Miralax) 17 gm HSPRN PRN ORAL Constipation 06/29/17 02:15 07/29/17 02:14 Sulfasalazine (Azulfidine) 500 mg BEFORE MEALS ORAL 06/29/17 06:30 07/29/17 06:29 07/02/17 05:26 Tamsulosin HCl (Flomax) 0.4 mg DAILY ORAL 06/29/17 09:00 07/29/17 08:59 07/01/17 10:35 Laboratory Tests 07/02/17 04:45: White Blood Count 5.9, Red Blood Count 4.02L, Hemoglobin 11.4L, Hematocrit 34.3L , Mean Corpuscular Volume 85, Mean Corpuscular Hemoglobin 28.3, Mean Corpuscular Hemoglobin Concent 33.2, Red Cell Distribution Width 16.4H, Platelet Count 302, Mean Platelet Volume 6.6, Neutrophils (%) (Auto) , Lymphocytes (%) (Auto) , Monocytes (%) (Auto) , Eosinophils (%) (Auto) , Basophils (%) (Auto) , Neutrophils % (Manual) [Pending], Lymphocytes % (Manual) [Pending], Platelet Estimate [Pending], Platelet Morphology [Pending], Sodium Level 138, Potassium Level 3.9, Chloride Level 105, Carbon Dioxide Level 28, Anion Gap 5, Blood Urea Nitrogen 18, Creatinine 0.8, Estimat Glomerular Filtration Rate , Glucose Level 121H, Calcium Level 8.6 Height (Feet): 5 Height (Inches): 4.00 Weight (Pounds): 160 Objective exam stable, urine is michelle with some debris BAMSHAD,JOSH Jul 02, 2017 09:24
[2017-07-02] MEDS: NIFEdipine 10mg cap ORAL SCH (09:54)
[2017-07-02] MEDS: Tamsulosin 0.4mg cap ORAL SCH (09:55)
[2017-07-02] MEDS: Metoprolol Tartrate 50mg tab ORAL SCH (09:55)
[2017-07-02] MEDS: Docusate 100mg cap ORAL SCH (09:55)
[2017-07-02] MEDS: Aspirin Baby 81mg NG SCH (09:56)
[2017-07-02] MEDS: Heparin 5000 units/ml inj SUBQ SCH (09:56)
[2017-07-02 12:00] VITALS: BP 103/67
[2017-07-02] MEDS ORDERED: INVANZ1 GM IVPB (15:35)
[2017-07-02 16:00] VITALS: BP 135/84
[2017-07-02 20:00] VITALS: BP 128/85
--- NOTE | 2017-07-03 08:24 | Discharge Summary ---
Discharge Summary Hospital Course Date of Admission Jun 29, 2017 at 01:53 Date of Discharge Jul 02, 2017 at 23:20 Admitting Diagnosis AMS, sepsis Reason for Hospitalization: AMS, sepsis HPI 71y/o female with pmh of HTN, HLD, CVA, depression, Afib (was on Eliquis but now held), seizure d/o, dementia who presents with AMS. History from pt limited 2/2 AMS. Per report, pt noted altered, more confused. She was reported to be continually moaning and yelling. At baseline pt more awake, alert, cooperative but does have confusion from dementia. In ED, pt w/ temp to 100.5, tachycardic to 100s. Labs showed WBC 11.5K. U/A w/ concern for UTI. Prather exchanged in ED. PT was given linezolid given recent h/o VRE in urine cx Consultations Infectious disease, Urology Hospital Course Pt was admitted given sepsis 2/2 UTI. She was started on meropenem and linezolid per ID. Prather was exchanged in ED on 06/29/17. Pt noted to have gross hematuria and was seen by urology. Prather irrigated and urine cleared by next day. Urine culture showed ESBL E. Coli which was sensitive to imipenem, so pt was discharged on course of ertapenem to complete 10 days of antibiotics. Discharge physical exam: General: alert, cooperative, no distress, appears stated age, confused Head: normocephalic, without obvious abnormality, atraumatic Eyes: conjunctivae/corneas clear. PERRL, EOM's intact Throat: lips, mucosa, and tongue normal. MMM Neck: supple, symmetrical, trachea midline, and no JVD Lungs: clear to auscultation bilaterally Heart: regular rate and rhythm, S1, S2 normal, no murmur, click, rub or gallop Abdomen: soft, non-tender, non-distended, bowel sounds normal; +PEG c/d/i Extremities: extremities normal, atraumatic, no cyanosis or edema Pulses: 2+ and symmetric Skin: skin color, texture, turgor normal; no rashes or lesions Neurologic: grossly normal, no focal deficits Discharge diagnoses: 1) Sepsis ICD Codes: A41.9 - Sepsis, unspecified organism SNOMED: 60097874 (2) Toxic metabolic encephalopathy ICD Codes: G92 - Toxic encephalopathy SNOMED: 334420051 (3) UTI (urinary tract infection) ICD Codes: N39.0 - Urinary tract infection, site not specified SNOMED: 03323110 Qualifiers: Qualified Codes: T83.511D - Infection and inflammatory reaction due to indwelling urethral catheter, subsequent encounter; N39.0 - Urinary tract infection, site not specified (4) Gross hematuria ICD Codes: R31.0 - Gross hematuria SNOMED: 338323656 (5) Seizure disorder ICD Codes: G40.909 - Epilepsy, unspecified, not intractable, without status epilepticus SNOMED: 292536337 (6) Atrial fibrillation ICD Codes: I48.91 - Unspecified atrial fibrillation SNOMED: 21565055 (7) HTN (hypertension) ICD Codes: I10 - Essential (primary) hypertension SNOMED: 50564214 (8) HLD (hyperlipidemia) ICD Codes: E78.5 - Hyperlipidemia, unspecified SNOMED: 02146517 (9) S/P percutaneous endoscopic gastrostomy (PEG) tube placement ICD Codes: Z93.1 - Gastrostomy status SNOMED: 459802237 (10) H/O: CVA (cerebrovascular accident) ICD Codes: Z86.73 - Personal history of transient ischemic attack (TIA), and cerebral infarction without residual deficits SNOMED: 364240486 Discharge Medications New Medications: Ertapenem Sodium* (INVanz*) 1 Gm Vial.port 1 GM IVPB Q24H for 7 Days, VIAL Continued Medications: Acetaminophen* (Acetaminophen 325MG Tablet*) 325 Mg Tablet 650 MG ORAL Q4H PRN for For Pain, TAB Aspirin* (Aspirin*) 81 Mg Tab.chew 81 MG NG DAILY for 90 Days, TAB Atorvastatin Calcium* (Lipitor*) 80 Mg Tablet 80 MG ORAL BEDTIME, TAB Folic Acid* (Folic Acid*) 1 Mg Tablet 1 MG ORAL DAILY, TAB Hydralazine Hcl* (Hydralazine Hcl*) 10 Mg Tablet 10 MG ORAL EVERY 6 HOURS, TAB Levetiracetam (Levetiracetam) 500 Mg Tablet 750 MG NG Q12HR for 90 Days, TAB Methotrexate Sodium* (Methotrexate*) 2.5 Mg Tablet 2.5 MG PO, TAB Metoprolol Tartrate* (Metoprolol Tartrate*) 50 Mg Tablet 50 MG ORAL EVERY 12 HOURS, TAB Metoprolol Tartrate* (Metoprolol Tartrate*) 50 Mg Tablet 50 MG ORAL Q12HR for 90 Days, TAB Mirtazapine* (Remeron*) 15 Mg Tablet 15 MG ORAL BEDTIME, TAB Nifedipine Xl* (Procardia Xl*) 30 Mg Tab.er.24 30 MG ORAL Q12HR for 90 Days, TAB Omeprazole (Omeprazole) 20 Mg Capsule.dr 20 MG ORAL DAILY, CAP Paroxetine Hcl* (Paxil*) 20 Mg Tablet 20 MG ORAL DAILY, TAB 0 Refills Sulfasalazine* (Azulfidine*) 500 Mg Tablet 500 MG ORAL BEFORE MEALS, TAB Tamsulosin HCl (Flomax) 0.4 Mg Cap.er.24h 0.4 MG ORAL DAILY for 30 Days, CAP Trazodone* (Trazodone*) 150 Mg Tablet 12.5 MG ORAL BEDTIME, TAB Valsartan (Diovan) 80 Mg Tab 80 MG ORAL DAILY, TAB Discontinued Medications: Fluconazole* (Diflucan*) 100 Mg Tablet 100 MG GT DAILY for 2 Days, TAB Linezolid* (Zyvox*) 600 Mg Tablet 600 MG GT EVERY 12 HOURS for 4 Days, TAB Metronidazole* (Flagyl*) 500 Mg Tablet 500 MG NG Q8HR for 7 Days, TAB Tramadol Hcl* (Ultram*) 50 Mg Tablet 50 MG ORAL Q4HR PRN for For Pain, #30 TAB 0 Refills Discharge Condition Upon Discharge: stable Discharge Disposition Patient was discharged to SNF Discharge Diagnoses: Agapito Butler M.D. Jul 03, 2017 08:24
--- NOTE | 2017-07-06 14:01 | Cardiology Report ---
APPROVED REPORT EKG Measurement Heart [id number] Atrial fibrillation Left axis deviation Anterior infarct, age undetermined Abnormal ECG
== END 2017-07-02 23:20 | DRG 871 ==
LOC: EDBD 00:37 → EMR 00:40 → 4W 01:53 → EDBEDREQSVC 05:20 → EDBEDREQ 05:20 → 4W 10:34
DX: A41.9 Sepsis, unspecified organism (principal); G92 Toxic encephalopathy; I48.92 Unspecified atrial flutter; F03.90 Unspecified dementia, unspecified severity, without behavioral disturbance, psychotic disturbance, mood disturbance, and anxiety; N39.0 Urinary tract infection, site not specified; G40.909 Epilepsy, unspecified, not intractable, without status epilepticus; I48.91 Unspecified atrial fibrillation; I10 Essential (primary) hypertension; N28.1 Cyst of kidney, acquired; N31.9 Neuromuscular dysfunction of bladder, unspecified; R31.0 Gross hematuria; E78.5 Hyperlipidemia, unspecified; K21.9 Gastro-esophageal reflux disease without esophagitis; F41.8 Other specified anxiety disorders; R33.9 Retention of urine, unspecified; Z79.82 Long term (current) use of aspirin; Z93.1 Gastrostomy status; Z86.73 Personal history of transient ischemic attack (TIA), and cerebral infarction without residual deficits
CPT/HCPCS: 36415; 71045; 80048; 80053; 80299; 81003; 82550; 82553; 82962; 83605; 83735; 84484; 85007; 85025; 86710; 87040; 87081; 87086; 87181; 93005

== ENCOUNTER 2017-08-06 02:54 | Inpatient (IN) | payer MEDICARE, OTHER ==
[~2017-08-06] VITALS: Ht 162.6 cm; Wt 81.6 kg
[2017-08-06] VITALS (8 sets, daily range): BP systolic 135–166; BP diastolic 74–106
[~2017-08-06 02:54] MED LIST changes: +INVANZ1 GM IVPB
[2017-08-06] MEDS ORDERED: Ertapenem 1 GM in NS 55 ML IV ONE ×2 (03:15→09:00)
[2017-08-06] MEDS ORDERED: Ertapenem (INVanz) 1gm Inj ONE ×2 (03:55→03:58)
[2017-08-06 04:05] LABS: BASOPHILS % (AUTO) 0.4 % (0.0-2.0); EOSINOPHILS % (AUTO) 0.5 % (0.0-3.0); HEMATOCRIT 37.1 % (37.0-47.0); HEMOGLOBIN 12.1 G/DL (12.0-16.0); LYMPHOCYTES % (AUTO) 25.4 % (20.0-45.0); MEAN CORPUSCULAR VOLUME 81 FL (80-99); MONOCYTES % (AUTO) 10.2 % (1.0-10.0); NEUTROPHILS % (AUTO) 63.4 % (45.0-75.0); PLATELET COUNT 199 K/UL (150-450); RED BLOOD COUNT 4.58 M/UL (4.20-5.40); RED CELL DISTRIBUTION WIDTH 18.5 % (11.6-14.8); WHITE BLOOD COUNT 5.9 K/UL (4.8-10.8)
[2017-08-06 04:17] LABS: ANION GAP 4 mmol/L (5-15); BLOOD UREA NITROGEN 21 mg/dL (7-18); CALCIUM 8.3 MG/DL (8.5-10.1); CARBON DIOXIDE 28 MMOL/L (21-32); CHLORIDE 104 MMOL/L (98-107); CREATININE 0.8 MG/DL (0.55-1.30); POTASSIUM 4.2 MMOL/L (3.5-5.1); SODIUM 136 MMOL/L (136-145)
[2017-08-06 04:30] LABS: ALANINE AMINOTRANSFERASE 56 U/L (12-78); ALBUMIN/GLOBULIN RATIO 0.3 (1.0-2.7); ALKALINE PHOSPHATASE 154 U/L (46-116); ASPARTATE AMINO TRANSFERASE 76 U/L (15-37); BILIRUBIN,TOTAL 0.4 MG/DL (0.2-1.0); CKMB 0.8 NG/ML (0.0-3.6); CREATINE KINASE 30 U/L (26-308)
--- NOTE | 2017-08-06 04:46 | Emergency Room Report ---
History of Present Illness General Chief Complaint: Female Urogenital Problems Source: Patient, Medical Record, EMS Present Illness HPI This is a 71-year-old female with multiple medical problem. She is comfortable jail. She presents with chief complaint of gross hematuria. Onset tonight. No fever chills. No nausea no vomiting. Denies any other complaint. She denies any pain. She has a history of atrial fibrillation but is not on blood thinner. Allergies: Coded Allergies: No Known Allergies (Unverified , 04/30/16) Patient History Past Medical History: see triage record, old chart reviewed Past Surgical History: other Pertinent Family History: none Social History: Denies: smoking Now: No Immunizations: other Reviewed Nursing Documentation: PMH: Agreed, PSxH: Agreed Nursing Documentation-PMH Hx Cardiac Problems: Yes - AFIB Hx Hypertension: Yes Hx Cancer: No Hx Gastrointestinal Problems: Yes - GERD, gtube Hx Neurological Problems: Yes Hx Cerebrovascular Accident: Yes Hx Dementia: Yes Review of Systems Eye: Denies: eye pain, blurred vision ENT: Denies: ear pain, nose congestion, throat swelling Respiratory: Denies: cough, shortness of breath Cardiovascular: Denies: chest pain, palpitations Gastrointestinal: Denies: abdominal pain, diarrhea, nausea, vomiting Genitourinary: Reports: hematuria Musculoskeletal: Denies: back pain, joint pain Skin: Denies: rash Neurological: Denies: headache, numbness Endocrine: Denies: increased thirst, increased urine Hematologic/Lymphatic: Denies: easy bruising All Other Systems: negative except mentioned in HPI Physical Exam Vital Signs Date Time Temp Pulse Resp B/P (MAP) Pulse Ox O2 Delivery O2 Flow Rate FiO2 08/06/17 02:55 97.6 90 18 170/103 97 Room Air 97.5 vitals with high blood pressure Sp02 EP Interpretation: reviewed, normal General Appearance: well appearing, no apparent distress, alert Head: normocephalic, atraumatic Eyes: bilateral eye PERRL, bilateral eye EOMI ENT: hearing grossly normal, normal pharynx Neck: full range of motion, supple, no meningismus Respiratory: chest non-tender, lungs clear, normal breath sounds Cardiovascular #1: regular rate, rhythm, no murmur Gastrointestinal: normal bowel sounds, non tender, no mass, no organomegaly, no bruit, non-distended, other - gtube Genitourinary: other - gross hematuria in pruitt Musculoskeletal: back normal, gait/station normal, normal range of motion Neurologic: alert Psychiatric: mood/affect normal Skin: warm/dry Medical Decision Making Diagnostic Impression: Primary Impression: UTI due to extended-spectrum beta lactamase (ESBL) producing Escherichia coli Additional Impression: Hematuria, gross ER Course Patient with gross hematuria. I suspect that the Pruitt was placed in the urethra. Because when the nurse tried to flush the Pruitt, it was leaking around the Pruitt. When the Pruitt was removed and a new one placed, there was clear urine. Patient grew out ESBL Escherichia coli and Morganella from the last admission. They are sensitive to Zosyn and Invanz. Patient given a dose of antibiotics. Blood pressure stable. We'll admit for IV antibiotics. patient has chronic atrial fibrillation and is rate controlled. I contacted Dr. Solis who is admitting for Dr. Byrne. Laboratory Tests Test 08/06/17 03:45 08/06/17 05:23 White Blood Count 5.9 K/UL (4.8-10.8) Red Blood Count 4.58 M/UL (4.20-5.40) Hemoglobin 12.1 G/DL (12.0-16.0) Hematocrit 37.1 % (37.0-47.0) Mean Corpuscular Volume 81 FL (80-99) Mean Corpuscular Hemoglobin 26.4 PG (27.0-31.0) L Mean Corpuscular Hemoglobin Concent 32.5 G/DL (32.0-36.0) Red Cell Distribution Width 18.5 % (11.6-14.8) H Platelet Count 199 K/UL (150-450) Mean Platelet Volume 7.2 FL (6.5-10.1) Neutrophils (%) (Auto) 63.4 % (45.0-75.0) Lymphocytes (%) (Auto) 25.4 % (20.0-45.0) Monocytes (%) (Auto) 10.2 % (1.0-10.0) H Eosinophils (%) (Auto) 0.5 % (0.0-3.0) Basophils (%) (Auto) 0.4 % (0.0-2.0) Sodium Level 136 MMOL/L (136-145) Potassium Level 4.2 MMOL/L (3.5-5.1) Chloride Level 104 MMOL/L (98-107) Carbon Dioxide Level 28 MMOL/L (21-32) Anion Gap 4 mmol/L (5-15) L Blood Urea Nitrogen 21 mg/dL (7-18) H Creatinine 0.8 MG/DL (0.55-1.30) Estimat Glomerular Filtration Rate mL/min (>60) Glucose Level 111 MG/DL (74-106) H Lactic Acid Level 1.50 mmol/L (0.66-2.22) Calcium Level 8.3 MG/DL (8.5-10.1) L Total Bilirubin 0.4 MG/DL (0.2-1.0) Aspartate Amino Transf (AST/SGOT) 76 U/L (15-37) H Alanine Aminotransferase (ALT/SGPT) 56 U/L (12-78) Alkaline Phosphatase 154 U/L (46-116) H Total Creatine Kinase 30 U/L (26-308) Creatine Kinase MB 0.8 NG/ML (0.0-3.6) Creatine Kinase MB Relative Index 2.6 Troponin I 0.011 ng/mL (0.000-0.056) Total Protein 7.9 G/DL (6.4-8.2) Albumin 2.0 G/DL (3.4-5.0) L Globulin 5.9 g/dL Albumin/Globulin Ratio 0.3 (1.0-2.7) L Urine Color Pale yellow Urine Appearance Cloudy Urine pH 7 (4.5-8.0) Urine Specific [place] 1.010 (1.005-1.035) Urine Protein 3+ (NEGATIVE) H Urine Glucose (UA) Negative (NEGATIVE) Urine Ketones Negative (NEGATIVE) Urine Occult Blood 5+ (NEGATIVE) H Urine Nitrite Positive (NEGATIVE) H Urine Bilirubin Negative (NEGATIVE) Urine Urobilinogen Normal MG/DL (0.0-1.0) Urine Leukocyte Esterase 3+ (NEGATIVE) H Urine RBC Tntc /HPF (0 - 2) H Urine WBC 40-60 /HPF (0 - 2) H Urine Squamous Epithelial Cells None /LPF (NONE/OCC) Urine Bacteria Few /HPF (NONE) Lab Results Impression labs unremarkable EKG Diagnostic Results Rate: normal Rhythm: other - afib ST Segments: no acute changes Rhythm Strip Diag. Results Rhythm Strip Time: 04:45 EP Interpretation: yes Rate: 87 Rhythm: no PVC's, no ectopy, other - afib Chest X-Ray Diagnostic Results Chest X-Ray Diagnostic Results : Chest X-Ray Ordered: Yes # of Views/Limited/Complete: 1 View Indication: Other EP Interpretation: Yes Interpretation: no consolidation, no effusion, no pneumothorax, no acute cardiopulmonary disease, other - CM Impression: No acute disease Electronically Signed by: Jaxon Torres MD Last Vital Signs Date Time Temp Pulse Resp B/P (MAP) Pulse Ox O2 Delivery O2 Flow Rate FiO2 08/06/17 03:10 97.8 88 18 149/106 99 Room Air 97.8 Status: improved Disposition: ADMITTED INPATIENT Condition: Serious Referrals: PAULETTE VALLES (PCP) JAXON TORRES M.D. Aug 06, 2017 04:46
[2017-08-06 05:20] LABS: BILIRUBIN, URINE NEGATIVE (NEGATIVE); COLOR,URINE PALE YELLOW; GLUCOSE, URINE (UA) NEGATIVE (NEGATIVE); KETONES,URINE NEGATIVE (NEGATIVE); LEUKOCYTE ESTERASE ,URINE 3+ (NEGATIVE); NITRITE,URINE POSITIVE (NEGATIVE); PH,URINE 7 (4.5-8.0); PROTEIN,URINE 3+ (NEGATIVE); UROBILINOGEN,URINE NORMAL MG/DL (0.0-1.0)
[2017-08-06 05:31] LABS: APPEARANCE,URINE CLOUDY
--- NOTE | 2017-08-06 08:23 | History and Physical ---
History of Present Illness General Date patient seen: Aug 06, 2017 Time patient seen: 08:23 Reason for Hospitalization: gross hematuria, UTI Present Illness HPI 71y/o female with pmh of HTN, HLD, CVA, depression, chronic Afib (was on Eliquis but now held given issues w/ bleeding), seizure d/o, dementia, urinary retention w/ chronic indwelling pruitt catheter, dysphgia s/p PEG who presents with gross hematuris. Pt noted to have gross hematuria since last night at SNF. No reports of f/c, n/v, d/c, chest pain, SOB, abd pain. Pt has been off anticoagulation for Afib given concern for bleeding risk and fall risk. In ED, pt AFVSS. Noted to have gross hematuria via pruitt. Pruitt was flushed and noted to have leakage of urine around pruitt so possibly was placed in urethra. New pruitt reinserted w/ improvement. Concern for UTI, pt given ertapenem given h /o ESBL. Allergies: Coded Allergies: No Known Allergies (Unverified , 04/30/16) Medication History Scheduled Aspirin* (Aspirin*), 81 MG NG DAILY Atorvastatin Calcium* (Lipitor*), 80 MG ORAL BEDTIME, (Reported) Ertapenem Sodium* (INVanz*), 1 GM IVPB Q24H Folic Acid* (Folic Acid*), 1 MG ORAL DAILY, (Reported) Hydralazine Hcl* (Hydralazine Hcl*), 10 MG ORAL EVERY 6 HOURS, (Reported) Levetiracetam (Levetiracetam), 750 MG NG Q12HR Metoprolol Tartrate* (Metoprolol Tartrate*), 50 MG ORAL EVERY 12 HOURS, ( Reported) Metoprolol Tartrate* (Metoprolol Tartrate*), 50 MG ORAL Q12HR Mirtazapine* (Remeron*), 15 MG ORAL BEDTIME, (Reported) Nifedipine (Nifedipine*), 30 MG ORAL EVERY 12 HOURS, (Reported) Nifedipine Xl* (Procardia Xl*), 30 MG ORAL Q12HR Omeprazole (Omeprazole), 20 MG ORAL DAILY, (Reported) Paroxetine Hcl* (Paxil*), 20 MG ORAL DAILY, (Reported) Sulfasalazine* (Azulfidine*), 500 MG ORAL BEFORE MEALS, (Reported) Tamsulosin HCl (Flomax), 0.4 MG ORAL DAILY Trazodone* (Trazodone*), 12.5 MG ORAL BEDTIME, (Reported) Valsartan (Diovan), 80 MG ORAL DAILY, (Reported) Scheduled PRN Acetaminophen* (Acetaminophen 325MG Tablet*), 650 MG ORAL Q4H PRN for For Pain, (Reported) Miscellaneous Medications Methotrexate Sodium* (Methotrexate*), 2.5 MG PO, (Reported) Patient History History Provided By: Patient, Medical Record, EMS, PMD Healthcare decision maker Resuscitation status Advanced Directive on File Past Medical/Surgical History Past Medical/Surgical History: (1) UTI (urinary tract infection) (2) CHF (congestive heart failure) (3) HTN (hypertension) (4) C. difficile colitis (5) HLD (hyperlipidemia) (6) Seizure disorder (7) H/O: CVA (cerebrovascular accident) (8) Dementia (9) S/P percutaneous endoscopic gastrostomy (PEG) tube placement (10) Depression (11) Chronic a-fib Family History Family History: Patient reports no known family medical history. Social History Social History: (1) lives at [facility] Review of Systems ROS Narrative Unable to obtain given AMS, dementia Physical Exam Physical Exam Narrative General Appearance: well appearing, no apparent distress, alert, confused Head: normocephalic, atraumatic Eyes: bilateral eye PERRL, bilateral eye EOMI ENT: hearing grossly normal, normal pharynx Neck: full range of motion, supple, no meningismus Respiratory: chest non-tender, lungs clear, normal breath sounds Cardiovascular #1: regular rate, rhythm, no murmur Gastrointestinal: normal bowel sounds, non tender, no mass, no organomegaly, no bruit, non-distended, other - gtube c/d/i Genitourinary: +pruitt now w/ clear urine Musculoskeletal: back normal, gait/station normal, normal range of motion Neurologic: alert Psychiatric: mood/affect normal Skin: warm/dry Last 24 Hour Vital Signs Date Time Temp Pulse Resp B/P (MAP) Pulse Ox O2 Delivery O2 Flow Rate FiO2 08/06/17 07:04 97.8 74 18 142/99 99 Room Air 97.8 08/06/17 06:50 97.8 74 18 142/99 99 Room Air 97.8 08/06/17 06:01 97.7 72 17 138/98 99 Room Air 97.7 08/06/17 05:05 97.6 74 16 140/99 98 Room Air 97.6 08/06/17 03:10 97.8 88 18 149/106 99 Room Air 97.8 08/06/17 02:55 97.6 90 18 170/103 97 Room Air 97.5 Intake and Output 08/05/17 08/06/17 19:00 07:00 Intake Total 1050 ml Output Total 800 ml Balance 250 ml Intake IV Total 1050 ml Output Urine Total 800 ml Laboratory Tests Test 08/06/17 03:45 08/06/17 05:23 White Blood Count 5.9 K/UL (4.8-10.8) Red Blood Count 4.58 M/UL (4.20-5.40) Hemoglobin 12.1 G/DL (12.0-16.0) Hematocrit 37.1 % (37.0-47.0) Mean Corpuscular Volume 81 FL (80-99) Mean Corpuscular Hemoglobin 26.4 PG (27.0-31.0) L Mean Corpuscular Hemoglobin Concent 32.5 G/DL (32.0-36.0) Red Cell Distribution Width 18.5 % (11.6-14.8) H Platelet Count 199 K/UL (150-450) Mean Platelet Volume 7.2 FL (6.5-10.1) Neutrophils (%) (Auto) 63.4 % (45.0-75.0) Lymphocytes (%) (Auto) 25.4 % (20.0-45.0) Monocytes (%) (Auto) 10.2 % (1.0-10.0) H Eosinophils (%) (Auto) 0.5 % (0.0-3.0) Basophils (%) (Auto) 0.4 % (0.0-2.0) Sodium Level 136 MMOL/L (136-145) Potassium Level 4.2 MMOL/L (3.5-5.1) Chloride Level 104 MMOL/L (98-107) Carbon Dioxide Level 28 MMOL/L (21-32) Anion Gap 4 mmol/L (5-15) L Blood Urea Nitrogen 21 mg/dL (7-18) H Creatinine 0.8 MG/DL (0.55-1.30) Estimat Glomerular Filtration Rate mL/min (>60) Glucose Level 111 MG/DL (74-106) H Lactic Acid Level 1.50 mmol/L (0.66-2.22) Calcium Level 8.3 MG/DL (8.5-10.1) L Total Bilirubin 0.4 MG/DL (0.2-1.0) Aspartate Amino Transf (AST/SGOT) 76 U/L (15-37) H Alanine Aminotransferase (ALT/SGPT) 56 U/L (12-78) Alkaline Phosphatase 154 U/L (46-116) H Total Creatine Kinase 30 U/L (26-308) Creatine Kinase MB 0.8 NG/ML (0.0-3.6) Creatine Kinase MB Relative Index 2.6 Troponin I 0.011 ng/mL (0.000-0.056) Total Protein 7.9 G/DL (6.4-8.2) Albumin 2.0 G/DL (3.4-5.0) L Globulin 5.9 g/dL Albumin/Globulin Ratio 0.3 (1.0-2.7) L Urine Color Pale yellow Urine Appearance Cloudy Urine pH 7 (4.5-8.0) Urine Specific [place] 1.010 (1.005-1.035) Urine Protein 3+ (NEGATIVE) H Urine Glucose (UA) Negative (NEGATIVE) Urine Ketones Negative (NEGATIVE) Urine Occult Blood 5+ (NEGATIVE) H Urine Nitrite Positive (NEGATIVE) H Urine Bilirubin Negative (NEGATIVE) Urine Urobilinogen Normal MG/DL (0.0-1.0) Urine Leukocyte Esterase 3+ (NEGATIVE) H Urine RBC Tntc /HPF (0 - 2) H Urine WBC 40-60 /HPF (0 - 2) H Urine Squamous Epithelial Cells None /LPF (NONE/OCC) Urine Bacteria Few /HPF (NONE) Height (Feet): 5 Height (Inches): 4.00 Weight (Pounds): 180 Medications Current Medications Medications (Trade) Dose Ordered Sig/Renea Route PRN Reason Start Time Stop Time Status Last Admin Dose Admin Acetaminophen (Tylenol) 650 mg Q4H PRN ORAL Mild Pain (Pain Scale 1-3) 08/06/17 06:15 09/05/17 06:14 Dextrose (Dextrose 50%) STAT PRN IV Hypoglycemia 08/06/17 06:15 09/05/17 06:14 Sodium Chloride 1,000 ml @ 75 mls/hr [id number] IVLG 08/06/17 07:01 09/05/17 07:00 Assessment/Plan Problem List: (1) Gross hematuria ICD Codes: R31.0 - Gross hematuria SNOMED: 395688168 (2) UTI (urinary tract infection) ICD Codes: N39.0 - Urinary tract infection, site not specified SNOMED: 35263691 (3) Acute blood loss anemia ICD Codes: D62 - Acute posthemorrhagic anemia SNOMED: 028500855 (4) Seizure disorder ICD Codes: G40.909 - Epilepsy, unspecified, not intractable, without status epilepticus SNOMED: 045975740 (5) H/O: CVA (cerebrovascular accident) ICD Codes: Z86.73 - Personal history of transient ischemic attack (TIA), and cerebral infarction without residual deficits SNOMED: 979744434 (6) Dementia ICD Codes: F03.90 - Unspecified dementia without behavioral disturbance SNOMED: 28751332 (7) HLD (hyperlipidemia) ICD Codes: E78.5 - Hyperlipidemia, unspecified SNOMED: 99324431 (8) Dysphagia ICD Codes: R13.10 - Dysphagia, unspecified SNOMED: 05094512, 503492938 (9) S/P percutaneous endoscopic gastrostomy (PEG) tube placement ICD Codes: Z93.1 - Gastrostomy status SNOMED: 660629415 (10) Chronic a-fib ICD Codes: I48.2 - Chronic atrial fibrillation SNOMED: 083103542 Status: stable Assessment/Plan Admit inpt Urology consulted Cont pruitt and monitor for recurrent bleeding Trend CBC, transfuse for hgb<7 or active bleeding ID consulted Empiric meropenem given h/o ESBL F/u urine cultures Cont SNF meds Cont tube feeds via PEG Pain control, supportive care, bowel regimen DVT Prophylaxis: SCD Code Status: Full Hospital Classification Declaration: Based on this initial evaluation, and depending on the patient's clinical course, I anticipate that this patient will require hospitalization for 2-3 days for gross hematuria, UTI and close respiratory/hemodynamic monitoring. Disposition: Once the patient is stable to leave the hospital, I anticipate the patient will likely be discharged to the following environment:back to SNF I spent 68 minutes on this patient's case, and >50% was dedicated to counseling and/or care coordination. Discussed with patient/family, nursing staff, SW/CM, urology, ID regarding clinical status, treatment course, and disposition planning. Time of note may not reflect time of encounter. Agapito Butler M.D. Aug 06, 2017 08:23
--- NOTE | 2017-08-06 10:18 | Diagnostic Imaging Report ---
Indication: Dyspnea Comparison: 06/30/2017 A single view chest radiograph was obtained. Findings: Patchy infiltrate suspected in the right upper lobe. The heart is enlarged. Mitral annulus is moderately calcified. The bones are osteopenic. IMPRESSION: Pneumonia suspected in the right upper lobe
--- NOTE | 2017-08-06 18:12 | Consultation ---
History of Present Illness General Date patient seen: Aug 06, 2017 Chief Complaint: Female Urogenital Problems Present Illness HPI 71-year-old female with multiple medical problem, dementia and depression. Im treating this pt at [facility]. the pt has episodes of crying currently stable and has no si/hi/ has memory issues Allergies: Coded Allergies: No Known Allergies (Unverified , 04/30/16) Medication History Scheduled Aspirin* (Aspirin*), 81 MG NG DAILY Atorvastatin Calcium* (Lipitor*), 80 MG ORAL BEDTIME, (Reported) Ertapenem Sodium* (INVanz*), 1 GM IVPB Q24H Folic Acid* (Folic Acid*), 1 MG ORAL DAILY, (Reported) Hydralazine Hcl* (Hydralazine Hcl*), 10 MG ORAL EVERY 6 HOURS, (Reported) Levetiracetam (Levetiracetam), 750 MG NG Q12HR Metoprolol Tartrate* (Metoprolol Tartrate*), 50 MG ORAL EVERY 12 HOURS, ( Reported) Metoprolol Tartrate* (Metoprolol Tartrate*), 50 MG ORAL Q12HR Mirtazapine* (Remeron*), 15 MG ORAL BEDTIME, (Reported) Nifedipine (Nifedipine*), 30 MG ORAL EVERY 12 HOURS, (Reported) Nifedipine Xl* (Procardia Xl*), 30 MG ORAL Q12HR Omeprazole (Omeprazole), 20 MG ORAL DAILY, (Reported) Paroxetine Hcl* (Paxil*), 20 MG ORAL DAILY, (Reported) Sulfasalazine* (Azulfidine*), 500 MG ORAL BEFORE MEALS, (Reported) Tamsulosin HCl (Flomax), 0.4 MG ORAL DAILY Trazodone* (Trazodone*), 12.5 MG ORAL BEDTIME, (Reported) Valsartan (Diovan), 80 MG ORAL DAILY, (Reported) Scheduled PRN Acetaminophen* (Acetaminophen 325MG Tablet*), 650 MG ORAL Q4H PRN for For Pain, (Reported) Miscellaneous Medications Methotrexate Sodium* (Methotrexate*), 2.5 MG PO, (Reported) Patient History Limited by: medical condition History Provided By: Patient, Medical Record, PMD Healthcare decision maker Resuscitation status Advanced Directive on File Past Medical/Surgical History Past Medical/Surgical History: (1) Seizure (2) Lactic acid acidosis (3) Atrial fibrillation with RVR (4) C. difficile colitis (5) Dysphagia (6) Hypernatremia (7) Acute blood loss anemia (8) Vaginal bleeding (9) Severe sepsis (10) Altered mental status (11) lives at snf (12) Seizure disorder (13) Sepsis (14) HLD (hyperlipidemia) (15) Gross hematuria (16) H/O: CVA (cerebrovascular accident) (17) Hematuria, gross (18) UTI due to extended-spectrum beta lactamase (ESBL) producing Escherichia coli (19) Extended spectrum beta lactamase (ESBL) resistance (20) Dementia (21) Bacteremia (22) Depression (23) CHF (congestive heart failure) (24) UTI (urinary tract infection) (25) HTN (hypertension) (26) Elevated troponin (27) Toxic metabolic encephalopathy (28) Acute kidney injury (29) Atrial fibrillation Review of Systems Psychiatric: Reports: prior hx, anxiety, depressed feelings, emotional problems Physical Exam General Appearance: no apparent distress, alert Neurologic: depressed affect Last 24 Hour Vital Signs Date Time Temp Pulse Resp B/P (MAP) Pulse Ox O2 Delivery O2 Flow Rate FiO2 08/06/17 16:48 98.8 88 21 166/74 100 Room Air 98.8 08/06/17 11:48 98.2 80 20 135/85 95 98.2 08/06/17 08:44 97.3 76 20 149/86 95 97.3 08/06/17 07:04 97.8 74 18 142/99 99 Room Air 97.8 08/06/17 06:50 97.8 74 18 142/99 99 Room Air 97.8 08/06/17 06:01 97.7 72 17 138/98 99 Room Air 97.7 08/06/17 05:05 97.6 74 16 140/99 98 Room Air 97.6 08/06/17 03:10 97.8 88 18 149/106 99 Room Air 97.8 08/06/17 02:55 97.6 90 18 170/103 97 Room Air 97.5 Intake and Output 08/05/17 08/06/17 19:00 07:00 Intake Total 1050 ml Output Total 800 ml Balance 250 ml Intake IV Total 1050 ml Output Urine Total 800 ml Laboratory Tests Test 08/06/17 03:45 08/06/17 05:23 White Blood Count 5.9 K/UL (4.8-10.8) Red Blood Count 4.58 M/UL (4.20-5.40) Hemoglobin 12.1 G/DL (12.0-16.0) Hematocrit 37.1 % (37.0-47.0) Mean Corpuscular Volume 81 FL (80-99) Mean Corpuscular Hemoglobin 26.4 PG (27.0-31.0) L Mean Corpuscular Hemoglobin Concent 32.5 G/DL (32.0-36.0) Red Cell Distribution Width 18.5 % (11.6-14.8) H Platelet Count 199 K/UL (150-450) Mean Platelet Volume 7.2 FL (6.5-10.1) Neutrophils (%) (Auto) 63.4 % (45.0-75.0) Lymphocytes (%) (Auto) 25.4 % (20.0-45.0) Monocytes (%) (Auto) 10.2 % (1.0-10.0) H Eosinophils (%) (Auto) 0.5 % (0.0-3.0) Basophils (%) (Auto) 0.4 % (0.0-2.0) Sodium Level 136 MMOL/L (136-145) Potassium Level 4.2 MMOL/L (3.5-5.1) Chloride Level 104 MMOL/L (98-107) Carbon Dioxide Level 28 MMOL/L (21-32) Anion Gap 4 mmol/L (5-15) L Blood Urea Nitrogen 21 mg/dL (7-18) H Creatinine 0.8 MG/DL (0.55-1.30) Estimat Glomerular Filtration Rate mL/min (>60) Glucose Level 111 MG/DL (74-106) H Lactic Acid Level 1.50 mmol/L (0.66-2.22) Calcium Level 8.3 MG/DL (8.5-10.1) L Total Bilirubin 0.4 MG/DL (0.2-1.0) Aspartate Amino Transf (AST/SGOT) 76 U/L (15-37) H Alanine Aminotransferase (ALT/SGPT) 56 U/L (12-78) Alkaline Phosphatase 154 U/L (46-116) H Total Creatine Kinase 30 U/L (26-308) Creatine Kinase MB 0.8 NG/ML (0.0-3.6) Creatine Kinase MB Relative Index 2.6 Troponin I 0.011 ng/mL (0.000-0.056) Total Protein 7.9 G/DL (6.4-8.2) Albumin 2.0 G/DL (3.4-5.0) L Globulin 5.9 g/dL Albumin/Globulin Ratio 0.3 (1.0-2.7) L Urine Color Pale yellow Urine Appearance Cloudy Urine pH 7 (4.5-8.0) Urine Specific [place] 1.010 (1.005-1.035) Urine Protein 3+ (NEGATIVE) H Urine Glucose (UA) Negative (NEGATIVE) Urine Ketones Negative (NEGATIVE) Urine Occult Blood 5+ (NEGATIVE) H Urine Nitrite Positive (NEGATIVE) H Urine Bilirubin Negative (NEGATIVE) Urine Urobilinogen Normal MG/DL (0.0-1.0) Urine Leukocyte Esterase 3+ (NEGATIVE) H Urine RBC Tntc /HPF (0 - 2) H Urine WBC 40-60 /HPF (0 - 2) H Urine Squamous Epithelial Cells None /LPF (NONE/OCC) Urine Bacteria Few /HPF (NONE) Height (Feet): 5 Height (Inches): 4.00 Weight (Pounds): 180 Medications Current Medications Medications (Trade) Dose Ordered Sig/Renea Route PRN Reason Start Time Stop Time Status Last Admin Dose Admin Acetaminophen (Tylenol) 650 mg Q4H PRN ORAL Mild Pain (Pain Scale 1-3) 08/06/17 06:15 09/05/17 06:14 Dextrose (Dextrose 50%) STAT PRN IV Hypoglycemia 08/06/17 06:15 09/05/17 06:14 Sodium Chloride 1,000 ml @ 75 mls/hr [id number] IVLG 08/06/17 07:01 09/05/17 07:00 08/06/17 12:03 Assessment/Plan Status: stable, progressing Assessment/Plan mdd dementia with behavioral disturbance remeron 15 mg qhs Kunal Tse M.D. Aug 06, 2017 18:12
--- NOTE | 2017-08-06 18:59 | Infectious Diseases Prog Note ---
Assessment/Plan Assessment/Plan Full consult dictated: A) 1) uti, hx esbl 2) ? pna, ? aspiration pna rul, ? hcap 3) pmh noted 4) allergies - negative P) 1) meropenem 2) check uc, sc, labs and chest x-ray 3) thank you Subjective Allergies: Coded Allergies: No Known Allergies (Unverified , 04/30/16) Objective Vital Signs Last 24 Hour Vital Signs Date Time Temp Pulse Resp B/P (MAP) Pulse Ox O2 Delivery O2 Flow Rate FiO2 08/06/17 16:48 98.8 88 21 166/74 100 Room Air 98.8 08/06/17 11:48 98.2 80 20 135/85 95 98.2 08/06/17 08:44 97.3 76 20 149/86 95 97.3 08/06/17 07:04 97.8 74 18 142/99 99 Room Air 97.8 08/06/17 06:50 97.8 74 18 142/99 99 Room Air 97.8 08/06/17 06:01 97.7 72 17 138/98 99 Room Air 97.7 08/06/17 05:05 97.6 74 16 140/99 98 Room Air 97.6 08/06/17 03:10 97.8 88 18 149/106 99 Room Air 97.8 08/06/17 02:55 97.6 90 18 170/103 97 Room Air 97.5 Height (Feet): 5 Height (Inches): 4.00 Weight (Pounds): 180 Laboratory Tests Test 08/06/17 03:45 08/06/17 05:23 White Blood Count 5.9 K/UL (4.8-10.8) Red Blood Count 4.58 M/UL (4.20-5.40) Hemoglobin 12.1 G/DL (12.0-16.0) Hematocrit 37.1 % (37.0-47.0) Mean Corpuscular Volume 81 FL (80-99) Mean Corpuscular Hemoglobin 26.4 PG (27.0-31.0) L Mean Corpuscular Hemoglobin Concent 32.5 G/DL (32.0-36.0) Red Cell Distribution Width 18.5 % (11.6-14.8) H Platelet Count 199 K/UL (150-450) Mean Platelet Volume 7.2 FL (6.5-10.1) Neutrophils (%) (Auto) 63.4 % (45.0-75.0) Lymphocytes (%) (Auto) 25.4 % (20.0-45.0) Monocytes (%) (Auto) 10.2 % (1.0-10.0) H Eosinophils (%) (Auto) 0.5 % (0.0-3.0) Basophils (%) (Auto) 0.4 % (0.0-2.0) Sodium Level 136 MMOL/L (136-145) Potassium Level 4.2 MMOL/L (3.5-5.1) Chloride Level 104 MMOL/L (98-107) Carbon Dioxide Level 28 MMOL/L (21-32) Anion Gap 4 mmol/L (5-15) L Blood Urea Nitrogen 21 mg/dL (7-18) H Creatinine 0.8 MG/DL (0.55-1.30) Estimat Glomerular Filtration Rate mL/min (>60) Glucose Level 111 MG/DL (74-106) H Lactic Acid Level 1.50 mmol/L (0.66-2.22) Calcium Level 8.3 MG/DL (8.5-10.1) L Total Bilirubin 0.4 MG/DL (0.2-1.0) Aspartate Amino Transf (AST/SGOT) 76 U/L (15-37) H Alanine Aminotransferase (ALT/SGPT) 56 U/L (12-78) Alkaline Phosphatase 154 U/L (46-116) H Total Creatine Kinase 30 U/L (26-308) Creatine Kinase MB 0.8 NG/ML (0.0-3.6) Creatine Kinase MB Relative Index 2.6 Troponin I 0.011 ng/mL (0.000-0.056) Total Protein 7.9 G/DL (6.4-8.2) Albumin 2.0 G/DL (3.4-5.0) L Globulin 5.9 g/dL Albumin/Globulin Ratio 0.3 (1.0-2.7) L Urine Color Pale yellow Urine Appearance Cloudy Urine pH 7 (4.5-8.0) Urine Specific [place] 1.010 (1.005-1.035) Urine Protein 3+ (NEGATIVE) H Urine Glucose (UA) Negative (NEGATIVE) Urine Ketones Negative (NEGATIVE) Urine Occult Blood 5+ (NEGATIVE) H Urine Nitrite Positive (NEGATIVE) H Urine Bilirubin Negative (NEGATIVE) Urine Urobilinogen Normal MG/DL (0.0-1.0) Urine Leukocyte Esterase 3+ (NEGATIVE) H Urine RBC Tntc /HPF (0 - 2) H Urine WBC 40-60 /HPF (0 - 2) H Urine Squamous Epithelial Cells None /LPF (NONE/OCC) Urine Bacteria Few /HPF (NONE) Current Medications Medications (Trade) Dose Ordered Sig/Renea Route PRN Reason Start Time Stop Time Status Last Admin Dose Admin Acetaminophen (Tylenol) 650 mg Q4H PRN ORAL Mild Pain (Pain Scale 1-3) 08/06/17 06:15 09/05/17 06:14 Aspirin (ASA) 81 mg DAILY NG 08/07/17 09:00 09/06/17 08:59 UNV Atorvastatin Calcium (Lipitor) 80 mg BEDTIME ORAL 08/06/17 21:00 09/05/17 20:59 UNV Dextrose (Dextrose 50%) STAT PRN IV Hypoglycemia 08/06/17 06:15 09/05/17 06:14 Folic Acid (Folate) 1 mg DAILY ORAL 08/07/17 09:00 09/06/17 08:59 UNV Hydralazine HCl (Apresoline) 10 mg EVERY 6 HOURS ORAL 08/07/17 00:00 09/06/17 00:00 UNV Levetiracetam (Keppra) 750 mg Q12HR NG 08/06/17 21:00 09/05/17 20:59 UNV Meropenem 1 gm/ Sodium Chloride 55 ml @ 110 mls/hr Q8HR IVPB 08/06/17 22:00 08/11/17 21:59 UNV Metoprolol Tartrate (Lopressor) 50 mg EVERY 12 HOURS ORAL 08/06/17 21:00 09/05/17 20:59 UNV Mirtazapine (Remeron) 15 mg BEDTIME ORAL 08/06/17 21:00 09/05/17 20:59 UNV Nifedipine (Procardia XL) 30 mg Q12HR ORAL 08/06/17 21:00 09/05/17 20:59 UNV Paroxetine HCl (Paxil) 20 mg DAILY ORAL 08/07/17 09:00 4/8/18 08:59 UNV Sodium Chloride 1,000 ml @ 75 mls/hr [id number] IVLG 08/06/17 07:01 09/05/17 07:00 08/06/17 12:03 Sulfasalazine (Azulfidine) 500 mg BEFORE MEALS ORAL 08/07/17 06:30 09/06/17 06:29 UNV Tamsulosin HCl (Flomax) 0.4 mg DAILY ORAL 08/07/17 09:00 09/06/17 08:59 UNV AMPARO HARRISON Aug 06, 2017 18:59
[2017-08-06] MEDS: Metoprolol Tartrate 50mg tab ORAL SCH (22:35)
[2017-08-06] MEDS: Atorvastatin 80mg tab ORAL SCH (22:37)
[2017-08-06] MEDS: Meropenem 1 GM in NS 55 ML IVPB SCH (22:38)
[2017-08-06] MEDS: HydrALAZINE 10mg Tab ORAL SCH (23:12)
--- NOTE | 2017-08-06 23:15 | Consultation ---
DATE OF CONSULTATION: 08/06/2017 INFECTIOUS DISEASE CONSULTATION CONSULTING PHYSICIAN: Bella Valdes M.D. REFERRING PHYSICIAN: 1. Melanie Byrne M.D. 2. Agapito Butler M.D REASON FOR CONSULTATION: Urinary tract infection with history of ESBL urinary tract infection, gram-negative urinary tract infection, and also possible pneumonia. CHIEF COMPLAINT: The patient's chief complaint coming in to the hospital is urinary tract infection, complicated urinary tract infection, and generalized weakness. 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 The patient comes in with gross hematuria and generalized weakness. She likely has a complicated urinary tract infection likely secondary to ESBL based on previous cultures. The patient was started on meropenem. Chest x-ray also was ordered and it was noted that he has possible right upper lobe pneumonia based on reading. Infectious Disease consultation is requested for antibiotic management. We will continue meropenem at this time pending workup. MAR was noted. Orders were noted. Notes were reviewed. Case was discussed with RN. PAST MEDICAL HISTORY: The patient's past medical history includes the history of the following. The patient has past history of recurrent urinary tract infection. She has history of a Prather. She has history of atrial fibrillation, hypertension, gastroesophageal reflux disease, history of CVA, dementia, history of neurological disease, G-tube, and dysphagia. No history of diabetes mentioned. She has history of lactic acidosis, hematuria, history of C. diff, history of congestive heart failure, encephalopathy, acute kidney injury, hyperlipidemia, history of seizures, dysphagia, anemia, history of ESBL, dementia, depression, and history of elevated troponin. MEDICATIONS: Upon reviewing the MAR, she is on the following medications. She is on aspirin, folic acid, Paxil, Flomax, sulfasalazine or Azulfidine, , meropenem, Lipitor, Keppra, Lopressor, Remeron, Procardia, and Tylenol. Outside medications were noted and reconciliated. ALLERGIES: No known drug allergies. No antibiotic allergies. FAMILY HISTORY: Noncontributory per the records. No mention of exposure to tuberculosis or cancer. SOCIAL HISTORY: Per the records is negative for smoking, alcohol, or drug abuse. REVIEW OF SYSTEMS: CONSTITUTIONAL: The patient has generalized weakness and fatigue. She is not a very good historian. No fevers. HEAD AND NECK: No head pain or neck pain. CARDIAC: No chest pain. No pressors. GASTROINTESTINAL: No nausea, vomiting, or diarrhea. GENITOURINARY: She has a Prather. She also came in with hematuria. PULMONARY: No significant congestion, shortness of breath, or hemoptysis. May be mild cough, but nothing significant. SKIN: No rash or itching. EXTREMITIES: No extremity pain. NEUROLOGIC: No seizures. GASTROINTESTINAL: No nausea, vomiting, or diarrhea. No hemoptysis or secretions. PHYSICAL EXAMINATION: VITAL SIGNS: Temp is 98.8, pulse rate 80, respiratory rate 21, blood pressure 166/74, and saturation 100% on room air. GENERAL: Alert and responsive. No acute distress. HEAD AND NECK: Oral exam, no thrush. Eye exam, no icterus. Normocephalic. No facial droop. No neck stiffness. Neck is supple. HEART: Regular. No obvious gallop or murmur. Occasionally irregular. ABDOMEN: Soft. Positive bowel sounds. LUNGS: Few bilateral rhonchi. No definite rales. Possible rales otherwise. SKIN: No rash. MUSCULOSKELETAL: No effusion. Legs are without cellulitis. PERIPHERAL VASCULAR: No cyanosis or gangrene. GENITOURINARY: She has a Prather. Urine is slightly cloudy. Line sites without phlebitis. NEUROLOGIC: Generalized weakness and responsive. LABORATORY DATA: The patient's laboratory data is as follows. White count 5.9 and hemoglobin 12.1. The patient's creatinine is 0.8. Alkaline phosphatase is 154. Urinalysis, she had had 3+ leukocyte esterase, 40 to 60 white blood cells, and too many to count red blood cells. Chest x-ray shows possible right upper lobe pneumonia per the report. Cultures from sputum and urine have been ordered. Creatinine is 0.8. ASSESSMENT AND PLAN: 1. The patient has what looks like urinary tract infection and complicated urinary tract infection, with hematuria and weakness. The patient likely has history of extended spectrum beta-lactamases. The patient has questionable pneumonia in the right upper lobe and questionable health care-associated pneumonia. Continue meropenem. Check sputum culture. Followup labs and chest x-ray. Check urine culture. The patient is on isolation for history of Clostridium diff, however, she has no active diarrhea that is obvious at this point. Continue meropenem. Check followup chest x-ray and cultures. 2. The patient has a history of extended spectrum beta-lactamases urinary tract infection that is recurrent. 3. History of anemia. 4. Dysphagia. 5. Aspiration risk. 6. Seizure disorder. 7. Altered mental status and encephalopathy history. 8. History of urinary tract infection and sepsis. 9. Hyperlipidemia. 10. History of lactic acidosis. 11. History of atrial fibrillation with rapid ventricular response. 12. Cerebrovascular accident. 13. Dementia. 14. Congestive heart failure. 15. Depression. 16. Hypertension. 17. Atrial fibrillation. 18. Allergies are negative. 19. Social history is negative. 20. Family history is noncontributory. 21. MAR was noted. 22. Case was discussed with RN. 23. Continue treatment per primary consultants. Bella Valdes M.D. DR: DEBBIE JOB#: [id number] CC:
--- NOTE | 2017-08-07 00:15 | Consultation ---
DATE OF CONSULTATION: 08/06/2017 REFERRING PHYSICIAN: Agapito Butler M.D. CONSULTING PHYSICIAN: Jaret Soares M.D. REASON FOR CONSULTATION: For evaluation of hematuria. HISTORY OF PRESENT ILLNESS: This is a 71-year-old female. She is known to me from previous evaluations. She has a history of recurrent hematuria. She has a history of recurrent urinary tract infections, urinary retention, and indwelling Prather. She was brought in from the [facility] because of hematuria. Urology evaluation requested. Most of the history was obtained from the chart. There is no known flank pain. PAST MEDICAL HISTORY: Significant for history of atrial fibrillation, hypertension, gastroesophageal reflux disease, cerebrovascular accident, and dementia. PAST SURGICAL HISTORY: Unknown. CURRENT MEDICATIONS: In the hospital, the patient is on acetaminophen and dextrose. She did get a dose of ertapenem. I do not believe she is on any anticoagulation at this time. ALLERGIES: No known drug allergies. SOCIAL HISTORY: She is resident of a [facility]. Smoking history is unknown. FAMILY HISTORY: Unable to obtain. REVIEW OF SYSTEMS: Unable to obtain. PHYSICAL EXAMINATION: GENERAL: Elderly female. VITAL SIGNS: Temperature is 98.8 degrees, blood pressure is /74, pulse 88, and respirations 21. HEENT: Normocephalic. NECK: Supple. ABDOMEN: Soft. BACK: No CVA tenderness. GENITOURINARY: Prather in place. Urine is blood tinged, dark michelle. LABORATORY DATA: Her BUN is 21, creatinine 0.8, and potassium is 4.2. White count is 5.9, hemoglobin 12.1, and platelets are 199,000. UA showed 3+ protein, nitrite positive, too numerous to count RBCs, and 46 WBCs. DIAGNOSTIC IMAGING STUDIES: The patient had a CT scan of the abdomen and pelvis back in October 2016 and at that time, there was mention of some renal cortical irregularity. There was mention of small renal cyst. There was no stones or hydronephrosis reported. IMPRESSION: 1. Gross hematuria. 2. Urinary retention. 3. Probable neurogenic bladder. 4. Pyuria, probable urinary tract infection and colonized urine. 5. Hematuria. 6. Proteinuria. 7. Renal cyst. PLAN AND DISCUSSION: Again, the patient does have hematuria, which is recurrent and is presumably secondary to UTI and cystitis. At this time, I would recommend antibiotics as ordered. We will follow up on urine culture and hand irrigate the Prather as needed. At some point, she will need to have cystoscopy to evaluate the lower urinary tract. Her hemoglobin and blood counts at this time are relatively stable and will be monitored. Her renal function is stable. Thank you for this consultation. Jaret Soares M.D. DR: Moses JOB#: [id number] CC:
[2017-08-07 00:24] VITALS: BP 125/93
[2017-08-07 04:00] VITALS: BP 133/85
[2017-08-07] MEDS: Meropenem 1 GM in NS 55 ML IVPB SCH ×3 (05:59→22:22)
[2017-08-07] MEDS: HydrALAZINE 10mg Tab ORAL SCH ×3 (05:59→19:12)
[2017-08-07 07:06] LABS: ANION GAP 8 mmol/L (5-15); BLOOD UREA NITROGEN 13 mg/dL (7-18); CALCIUM 8.2 MG/DL (8.5-10.1); CARBON DIOXIDE 26 MMOL/L (21-32); CHLORIDE 107 MMOL/L (98-107); CREATININE 0.8 MG/DL (0.55-1.30); POTASSIUM 3.8 MMOL/L (3.5-5.1); SODIUM 141 MMOL/L (136-145)
[2017-08-07 07:13] LABS: BASOPHILS % (AUTO) 0.9 % (0.0-2.0); HEMATOCRIT 36.1 % (37.0-47.0); HEMOGLOBIN 11.7 G/DL (12.0-16.0); LYMPHOCYTES % (AUTO) 32.1 % (20.0-45.0); MEAN CORPUSCULAR VOLUME 82 FL (80-99); MONOCYTES % (AUTO) 12.8 % (1.0-10.0); NEUTROPHILS % (AUTO) 53.2 % (45.0-75.0); PLATELET COUNT 203 K/UL (150-450); RED BLOOD COUNT 4.38 M/UL (4.20-5.40)
[2017-08-07 08:00] VITALS: BP 122/82
[2017-08-07] MEDS: Aspirin Baby 81mg NG SCH (09:42)
[2017-08-07] MEDS: Tamsulosin 0.4mg cap ORAL SCH (09:43)
[2017-08-07] MEDS: Metoprolol Tartrate 50mg tab ORAL SCH ×2 (09:45→21:42)
[2017-08-07] MEDS: SulfASALAZine 500MG tab ORAL SCH ×3 (09:46→19:12)
[2017-08-07] MEDS: PARoxetine 20mg tab ORAL SCH (09:46)
--- NOTE | 2017-08-07 09:53 | General Progress Note ---
Assessment/Plan Problem List: (1) Gross hematuria ICD Codes: R31.0 - Gross hematuria SNOMED: 384650916 (2) UTI (urinary tract infection) ICD Codes: N39.0 - Urinary tract infection, site not specified SNOMED: 84992892 (3) Acute blood loss anemia ICD Codes: D62 - Acute posthemorrhagic anemia SNOMED: 198342807 (4) Seizure disorder ICD Codes: G40.909 - Epilepsy, unspecified, not intractable, without status epilepticus SNOMED: 277625331 (5) H/O: CVA (cerebrovascular accident) ICD Codes: Z86.73 - Personal history of transient ischemic attack (TIA), and cerebral infarction without residual deficits SNOMED: 829447896 (6) Dementia ICD Codes: F03.90 - Unspecified dementia without behavioral disturbance SNOMED: 48086374 (7) HLD (hyperlipidemia) ICD Codes: E78.5 - Hyperlipidemia, unspecified SNOMED: 98294795 (8) Dysphagia ICD Codes: R13.10 - Dysphagia, unspecified SNOMED: 28302960, 917903344 (9) S/P percutaneous endoscopic gastrostomy (PEG) tube placement ICD Codes: Z93.1 - Gastrostomy status SNOMED: 791594762 (10) Chronic a-fib ICD Codes: I48.2 - Chronic atrial fibrillation SNOMED: 710687473 Status: stable Assessment/Plan Urology consulted Cont pruitt and monitor for recurrent bleeding Irrigate PRN Trend CBC, transfuse for hgb<7 or active bleeding ID consulted Empiric meropenem given h/o ESBL Vancomycin added per ID given blood culture w/ ?gram positive org F/u urine culture F/u blood culture Cont SNF meds Cont tube feeds via PEG Pain control, supportive care, bowel regimen D/w PCP, possible plan to transition to hospice DVT Prophylaxis: SCD Code Status: Full Hospital Classification Declaration: Based on this initial evaluation, and depending on the patient's clinical course, I anticipate that this patient will require hospitalization for 1-2 days for gross hematuria, UTI and close respiratory/hemodynamic monitoring. Disposition: Once the patient is stable to leave the hospital, I anticipate the patient will likely be discharged to the following environment:back to SNF Discussed with patient/family, nursing staff, SW/CM, urology, ID, PCP regarding clinical status, treatment course, and disposition planning. Time of note may not reflect time of encounter. Subjective Date patient seen: Aug 07, 2017 Time patient seen: 09:53 ROS Limited/Unobtainable: Yes Allergies: Coded Allergies: No Known Allergies (Unverified , 04/30/16) All Systems: reviewed and negative except above Subjective No acute o/n events Blood cultures showing 1 bottle with gram positive org, ?contaminant Afebrile, VSS Urine culture pending Pt more awake, alert. Denies pain, SOB ROS limited 2/2 dementia, AMS Objective Last 24 Hour Vital Signs Date Time Temp Pulse Resp B/P (MAP) Pulse Ox O2 Delivery O2 Flow Rate FiO2 08/07/17 09:45 97 122/82 08/07/17 09:44 97 122/82 08/07/17 08:00 97.3 97 20 122/82 97 97.3 08/07/17 05:59 133/85 08/07/17 04:00 97.2 85 21 133/85 98 Room Air 97.2 08/07/17 00:24 96.8 93 20 125/93 98 Room Air 96.8 08/06/17 23:12 148/81 08/06/17 22:36 93 148/81 08/06/17 22:35 93 148/81 08/06/17 19:43 97.3 93 20 148/81 100 Room Air 97.3 08/06/17 16:48 98.8 88 21 166/74 100 Room Air 98.8 08/06/17 11:48 98.2 80 20 135/85 95 98.2 Intake and Output 08/06/17 08/07/17 19:00 07:00 Intake Total 525 ml 655 ml Output Total 1500 ml 1300 ml Balance -975 ml -645 ml Intake IV Total 525 ml 655 ml Output Urine Total 1500 ml 1300 ml # Bowel Movements 3 Laboratory Tests 08/07/17 05:20: White Blood Count 5.0, Red Blood Count 4.38, Hemoglobin 11.7L, Hematocrit 36.1L , Mean Corpuscular Volume 82, Mean Corpuscular Hemoglobin 26.7L, Mean Corpuscular Hemoglobin Concent 32.4, Red Cell Distribution Width 19.0H, Platelet Count 203, Mean Platelet Volume 8.3, Neutrophils (%) (Auto) 53.2, Lymphocytes (%) (Auto) 32.1, Monocytes (%) (Auto) 12.8H, Eosinophils (%) (Auto) 1.0, Basophils (%) (Auto) 0.9, Sodium Level 141, Potassium Level 3.8, Chloride Level 107, Carbon Dioxide Level 26, Anion Gap 8, Blood Urea Nitrogen 13, Creatinine 0.8, Estimat Glomerular Filtration Rate , Glucose Level 77, Calcium Level 8.2L, Magnesium Level 1.4L Height (Feet): 5 Height (Inches): 4.00 Weight (Pounds): 180 Objective General: alert, cooperative, no distress, appears stated age Head: normocephalic, without obvious abnormality, atraumatic Eyes: conjunctivae/corneas clear. PERRL, EOM's intact Throat: lips, mucosa, and tongue normal. MMM Neck: supple, symmetrical, trachea midline, and no JVD Lungs: clear to auscultation bilaterally Heart: regular rate and rhythm, S1, S2 normal, no murmur, click, rub or gallop Abdomen: soft, non-tender, non-distended, bowel sounds normal; +PEG c/d/i : +pruitt Extremities: extremities normal, atraumatic, no cyanosis or edema Pulses: 2+ and symmetric Skin: skin color, texture, turgor normal; no rashes or lesions Agapito Butler M.D. Aug 07, 2017 09:53
--- NOTE | 2017-08-07 11:11 | Urology Progress Note ---
Assessment/Plan Assessment/Plan 1. Gross hematuria. 2. Urinary retention. 3. Probable neurogenic bladder. 4. Pyuria, probable urinary tract infection and colonized urine. 5. Hematuria. 6. Proteinuria. 7. Renal cyst. pruitt indwelling cath hand irrigated and patent hand irrigate PRN abx as ordered f/u on cx's cysto later Subjective Allergies: Coded Allergies: No Known Allergies (Unverified , 04/30/16) Subjective all noted Objective Last 24 Hour Vital Signs Date Time Temp Pulse Resp B/P (MAP) Pulse Ox O2 Delivery O2 Flow Rate FiO2 08/07/17 09:45 97 122/82 08/07/17 09:44 97 122/82 08/07/17 08:00 97.3 97 20 122/82 97 97.3 08/07/17 05:59 133/85 08/07/17 04:00 97.2 85 21 133/85 98 Room Air 97.2 08/07/17 00:24 96.8 93 20 125/93 98 Room Air 96.8 08/06/17 23:12 148/81 08/06/17 22:36 93 148/81 08/06/17 22:35 93 148/81 08/06/17 19:43 97.3 93 20 148/81 100 Room Air 97.3 08/06/17 16:48 98.8 88 21 166/74 100 Room Air 98.8 08/06/17 11:48 98.2 80 20 135/85 95 98.2 Intake and Output 08/06/17 08/07/17 19:00 07:00 Intake Total 525 ml 655 ml Output Total 1500 ml 1300 ml Balance -975 ml -645 ml Intake IV Total 525 ml 655 ml Output Urine Total 1500 ml 1300 ml # Bowel Movements 3 Microbiology Date/Time Source Procedure Growth Status 08/06/17 03:50 Blood Blood Culture - Preliminary NO GROWTH AFTER 24 HOURS Resulted 08/06/17 05:23 Urine,Clean Catch Urine Culture - Preliminary Resulted Current Medications Medications (Trade) Dose Ordered Sig/Renea Route PRN Reason Start Time Stop Time Status Last Admin Dose Admin Acetaminophen (Tylenol) 650 mg Q4H PRN ORAL Mild Pain (Pain Scale 1-3) 08/06/17 06:15 09/05/17 06:14 Aspirin (ASA) 81 mg DAILY NG 08/07/17 09:00 09/06/17 08:59 08/07/17 09:42 Atorvastatin Calcium (Lipitor) 80 mg BEDTIME ORAL 08/06/17 21:00 09/05/17 20:59 08/06/17 22:37 Dextrose (Dextrose 50%) STAT PRN IV Hypoglycemia 08/06/17 06:15 09/05/17 06:14 Folic Acid (Folate) 1 mg DAILY ORAL 08/07/17 09:00 09/06/17 08:59 08/07/17 09:45 Hydralazine HCl (Apresoline) 10 mg EVERY 6 HOURS ORAL 08/07/17 00:00 09/06/17 00:00 08/07/17 05:59 Levetiracetam (Keppra) 750 mg Q12HR NG 08/06/17 21:00 09/05/17 20:59 08/07/17 09:43 Magnesium Sulfate 100 ml @ 100 mls/hr Q1H IVPB 08/07/17 09:15 08/07/17 11:14 08/07/17 10:02 Meropenem 1 gm/ Sodium Chloride 55 ml @ 110 mls/hr Q8HR IVPB 08/06/17 22:00 08/07/17 21:59 08/07/17 05:59 Metoprolol Tartrate (Lopressor) 50 mg EVERY 12 HOURS ORAL 08/06/17 21:00 09/05/17 20:59 08/07/17 09:45 Mirtazapine (Remeron) 15 mg BEDTIME ORAL 08/06/17 21:00 09/05/17 20:59 08/06/17 22:37 Nifedipine (Procardia XL) 30 mg Q12HR ORAL 08/06/17 21:00 09/05/17 20:59 08/07/17 09:44 Paroxetine HCl (Paxil) 20 mg DAILY ORAL 08/07/17 09:00 09/06/17 08:59 08/07/17 09:46 Sodium Chloride 1,000 ml @ 75 mls/hr [id number] IVLG 08/06/17 07:01 09/05/17 07:00 08/06/17 22:53 Sulfasalazine (Azulfidine) 500 mg BEFORE MEALS ORAL 08/07/17 06:30 09/06/17 06:29 08/07/17 09:46 Tamsulosin HCl (Flomax) 0.4 mg DAILY ORAL 08/07/17 09:00 09/06/17 08:59 08/07/17 09:43 Laboratory Tests 08/07/17 05:20: White Blood Count 5.0, Red Blood Count 4.38, Hemoglobin 11.7L, Hematocrit 36.1L , Mean Corpuscular Volume 82, Mean Corpuscular Hemoglobin 26.7L, Mean Corpuscular Hemoglobin Concent 32.4, Red Cell Distribution Width 19.0H, Platelet Count 203, Mean Platelet Volume 8.3, Neutrophils (%) (Auto) 53.2, Lymphocytes (%) (Auto) 32.1, Monocytes (%) (Auto) 12.8H, Eosinophils (%) (Auto) 1.0, Basophils (%) (Auto) 0.9, Sodium Level 141, Potassium Level 3.8, Chloride Level 107, Carbon Dioxide Level 26, Anion Gap 8, Blood Urea Nitrogen 13, Creatinine 0.8, Estimat Glomerular Filtration Rate , Glucose Level 77, Calcium Level 8.2L, Magnesium Level 1.4L Height (Feet): 5 Height (Inches): 4.00 Weight (Pounds): 180 Objective exam stable, urine michelle with some debris JOSH PENNINGTON Aug 07, 2017 11:11
[2017-08-07 12:00] VITALS: BP 139/64
--- NOTE | 2017-08-07 13:20 | Physician Query ---
--------- THIS DOCUMENT IS A PERMANENT PART OF THE MEDICAL RECORD --------- PLEASE COMPLETE DOCUMENT BEFORE SIGNING Dear MARIANA Goldstein Date: 08/07/17 [employer] Name: Pete Hernandeztraci [employer] Phone No.: [phone] Exercise your independent professional judgment when responding to the query. Questions asked do not imply a particular answer is desired or expected. We greatly appreciate your clarification on this issue. CLINICAL DOCUMENTATION STATES: H & P (08/06/17) 71 years old female patient admitted with: Gross hematuria UTI Acute blood loss anemia Dysphagia Infectious Diseases Consultation Note: Dr. Valdes (08/07/17) "The patient has questionable pneumonia in the right upper lobe and questionable health care-associated pneumonia." o Dysphagia o Aspiration risk CLINICAL FINDINGS SHOW: Chest X-Ray (08/06/17): Pneumonia suspected in the right upper lobe. IV Abx== Ertapenem 1 gm, Meropenem 1 gm, Vancomycin 1 gm Please respond to the following question: Is Pneumonia: [] Ruled in or [x] Ruled out If ruled in, please specify further, if applicable: [] Bronchopneumonia [] Gram (+) Pneumonia [] Gram (-) Pneumonia [] Aspiration Pneumonia [] Other [] Unable to specify Condition Present on Admission: [] Yes [] No [x]Clinically Undeterminable Please also document in your Progress Notes and/or Discharge Summary and indicate if the condition was present on admission. Dr. MARIANA ROME Date/Time MTDD
[2017-08-07] MEDS: Vancomycin 1250mg/D5W 250ml IVPB SCH (14:54)
[2017-08-07 19:38] VITALS: BP 112/70
[2017-08-07] MEDS: Atorvastatin 80mg tab ORAL SCH (21:41)
--- NOTE | 2017-08-07 22:08 | General Progress Note ---
Assessment/Plan Status: stable, progressing Subjective Neurologic/Psychiatric: Reports: anxiety, depressed Allergies: Coded Allergies: No Known Allergies (Unverified , 04/30/16) Objective Last 24 Hour Vital Signs Date Time Temp Pulse Resp B/P (MAP) Pulse Ox O2 Delivery O2 Flow Rate FiO2 08/07/17 21:42 98 134/88 08/07/17 21:42 98 134/88 08/07/17 19:38 97.5 77 20 112/70 99 Room Air 97.5 08/07/17 19:12 139/64 08/07/17 12:53 139/64 08/07/17 12:00 96.3 67 20 139/64 96 96.3 08/07/17 09:45 97 122/82 08/07/17 09:44 97 122/82 08/07/17 08:00 97.3 97 20 122/82 97 97.3 08/07/17 05:59 133/85 08/07/17 04:00 97.2 85 21 133/85 98 Room Air 97.2 08/07/17 00:24 96.8 93 20 125/93 98 Room Air 96.8 08/06/17 23:12 148/81 08/06/17 22:36 93 148/81 08/06/17 22:35 93 148/81 Intake and Output 08/06/17 08/07/17 19:00 07:00 Intake Total 525 ml 655 ml Output Total 1500 ml 1300 ml Balance -975 ml -645 ml Intake IV Total 525 ml 655 ml Output Urine Total 1500 ml 1300 ml # Bowel Movements 3 Laboratory Tests 08/07/17 05:20: White Blood Count 5.0, Red Blood Count 4.38, Hemoglobin 11.7L, Hematocrit 36.1L , Mean Corpuscular Volume 82, Mean Corpuscular Hemoglobin 26.7L, Mean Corpuscular Hemoglobin Concent 32.4, Red Cell Distribution Width 19.0H, Platelet Count 203, Mean Platelet Volume 8.3, Neutrophils (%) (Auto) 53.2, Lymphocytes (%) (Auto) 32.1, Monocytes (%) (Auto) 12.8H, Eosinophils (%) (Auto) 1.0, Basophils (%) (Auto) 0.9, Sodium Level 141, Potassium Level 3.8, Chloride Level 107, Carbon Dioxide Level 26, Anion Gap 8, Blood Urea Nitrogen 13, Creatinine 0.8, Estimat Glomerular Filtration Rate , Glucose Level 77, Calcium Level 8.2L, Magnesium Level 1.4L Height (Feet): 5 Height (Inches): 4.00 Weight (Pounds): 180 General Appearance: no apparent distress, alert, confused, agitated Kunal Tse M.D. Aug 07, 2017 22:07
[2017-08-08 00:08] VITALS: BP 131/86
[2017-08-08] MEDS: HydrALAZINE 10mg Tab ORAL SCH ×5 (00:15→23:19)
[2017-08-08 03:54] VITALS: BP 132/68
[2017-08-08] MEDS: Meropenem 1 GM in NS 55 ML IVPB SCH ×3 (06:31→23:19)
[2017-08-08] MEDS: SulfASALAZine 500MG tab ORAL SCH ×3 (06:49→17:31)
[2017-08-08 08:00] VITALS: BP 136/80
[2017-08-08] MEDS: Metoprolol Tartrate 50mg tab ORAL SCH ×2 (09:53→23:17)
[2017-08-08] MEDS: Tamsulosin 0.4mg cap ORAL SCH (09:53)
[2017-08-08] MEDS: Aspirin Baby 81mg NG SCH (09:53)
[2017-08-08] MEDS: PARoxetine 20mg tab ORAL SCH (09:53)
--- NOTE | 2017-08-08 10:12 | Urology Progress Note ---
Assessment/Plan Assessment/Plan 1. Gross hematuria. 2. Urinary retention. 3. Probable neurogenic bladder. 4. Pyuria, probable urinary tract infection and colonized urine. 5. Hematuria. 6. Proteinuria. 7. Renal cyst. pruitt indwelling cath hand irrigated and patent hand irrigate PRN abx as ordered f/u on cx's cysto later consider repeat renal imaging study Subjective Allergies: Coded Allergies: No Known Allergies (Unverified , 04/30/16) Subjective all noted Objective Last 24 Hour Vital Signs Date Time Temp Pulse Resp B/P (MAP) Pulse Ox O2 Delivery O2 Flow Rate FiO2 08/08/17 09:53 100 136/80 08/08/17 09:53 100 136/80 08/08/17 08:00 97.5 100 20 136/80 94 97.5 08/08/17 06:49 141/73 08/08/17 03:54 97.5 107 20 132/68 97 Room Air 97.5 08/08/17 00:15 131/84 08/08/17 00:08 97.2 81 20 131/86 100 Room Air 97.2 08/07/17 21:42 98 134/88 08/07/17 21:42 98 134/88 08/07/17 19:38 97.5 77 20 112/70 99 Room Air 97.5 08/07/17 19:12 139/64 08/07/17 12:53 139/64 08/07/17 12:00 96.3 67 20 139/64 96 96.3 Intake and Output 08/07/17 08/08/17 19:00 07:00 Intake Total 105 ml 1615 ml Output Total 1200 ml 800 ml Balance -1095 ml 815 ml Intake Free Water 240 ml IV Total 75 ml 805 ml Tube Feeding 30 ml 570 ml Output Urine Total 1200 ml 800 ml Microbiology Date/Time Source Procedure Growth Status 08/06/17 03:50 Blood Blood Culture - Preliminary Enterococcus Species Resulted 08/06/17 06:15 Nasal Nares MRSA Culture - Final NO METHICILLIN RESISTANT STAPH AUREUS... Complete 08/06/17 05:23 Urine,Clean Catch Urine Culture - Preliminary Gram Negative Kailash Strep Species, Gamma-Hemolytic Resulted 08/06/17 06:15 Rectum VRE Culture - Final Enterococcus Faecium - Vre Complete Current Medications Medications (Trade) Dose Ordered Sig/Renea Route PRN Reason Start Time Stop Time Status Last Admin Dose Admin Acetaminophen (Tylenol) 650 mg Q4H PRN ORAL Mild Pain (Pain Scale 1-3) 08/06/17 06:15 09/05/17 06:14 Aspirin (ASA) 81 mg DAILY NG 08/07/17 09:00 09/06/17 08:59 08/08/17 09:53 Atorvastatin Calcium (Lipitor) 80 mg BEDTIME ORAL 08/06/17 21:00 09/05/17 20:59 08/07/17 21:41 Dextrose (Dextrose 50%) STAT PRN IV Hypoglycemia 08/06/17 06:15 09/05/17 06:14 Folic Acid (Folate) 1 mg DAILY ORAL 08/07/17 09:00 09/06/17 08:59 08/08/17 09:53 Hydralazine HCl (Apresoline) 10 mg EVERY 6 HOURS ORAL 08/07/17 00:00 09/06/17 00:00 08/08/17 06:49 Levetiracetam (Keppra) 750 mg Q12HR NG 08/06/17 21:00 09/05/17 20:59 08/08/17 09:56 Meropenem 1 gm/ Sodium Chloride 55 ml @ 110 mls/hr Q8HR IVPB 08/06/17 22:00 08/11/17 21:59 08/08/17 06:31 Metoprolol Tartrate (Lopressor) 50 mg EVERY 12 HOURS ORAL 08/06/17 21:00 09/05/17 20:59 08/08/17 09:53 Mirtazapine (Remeron) 15 mg BEDTIME ORAL 08/06/17 21:00 09/05/17 20:59 08/07/17 21:41 Nifedipine (Procardia XL) 30 mg Q12HR ORAL 08/06/17 21:00 09/05/17 20:59 08/08/17 09:53 Paroxetine HCl (Paxil) 20 mg DAILY ORAL 08/07/17 09:00 09/06/17 08:59 08/08/17 09:53 Sodium Chloride 1,000 ml @ 75 mls/hr [id number] IVLG 08/06/17 07:01 09/05/17 07:00 08/08/17 06:34 Sulfasalazine (Azulfidine) 500 mg BEFORE MEALS ORAL 08/07/17 06:30 09/06/17 06:29 08/08/17 06:49 Tamsulosin HCl (Flomax) 0.4 mg DAILY ORAL 08/07/17 09:00 09/06/17 08:59 08/08/17 09:53 Vancomycin HCl (Vanco rx to dose) 1 ea DAILY PRN MISC Per rx protocol 08/07/17 12:30 09/06/17 12:29 Vancomycin HCl/ Dextrose 250 ml @ 166.667 mls/hr Q24H IVPB 08/07/17 14:00 08/12/17 13:59 08/07/17 14:54 Height (Feet): 5 Height (Inches): 4.00 Weight (Pounds): 180 Objective exam stable, urine michelle with some debris JOSH PENNINGTON Aug 08, 2017 10:12
--- NOTE | 2017-08-08 10:23 | Diagnostic Imaging Report ---
Indication: Chest pain Technique: XRAY Chest 1v Comparison: 08/06/2017 Findings: Cardiac silhouette is prominent. Atherosclerotic changes are seen. There is calcification of the mitral annulus. Mild interstitial opacities are again noted. No new infiltrates are seen. Osseous structures are stable. Impression: No significant change from 08/06/2017.
[2017-08-08 11:46] VITALS: BP 132/87
[2017-08-08] MEDS: Vancomycin 1250mg/D5W 250ml IVPB SCH (14:52)
[2017-08-08 16:00] VITALS: BP 131/72
--- NOTE | 2017-08-08 16:13 | Infectious Diseases Prog Note ---
Assessment/Plan Assessment/Plan ASSESSMENT AND PLAN: 1. gram neg uti, strep uti, ? enterococcus/gram + kailash bacteremia vs contaminant , vre colonization, ? pna - vancomycin and meropenem for now - check final cultures, labs and chest x-ray - patient on paxil which precludes use of linezolid - check surveillance blood cultures - communicated with Dr. Altman 2.The patient has a history of extended spectrum beta-lactamases urinary tract infection that is recurrent. 3. History of anemia. 4. Dysphagia. 5. Aspiration risk. 6. Seizure disorder. 7. Altered mental status and encephalopathy history. 8. History of urinary tract infection and sepsis. 9. Hyperlipidemia. 10. History of lactic acidosis. 11. History of atrial fibrillation with rapid ventricular response. 12. Cerebrovascular accident. 13. Dementia. 14. Congestive heart failure. 15. Depression. 16. Hypertension. 17. Atrial fibrillation. 18. Allergies are negative. 19. Social history is negative. 20. Family history is noncontributory. 21. MAR was noted. 22. Case was discussed with RN. 23. Continue treatment per primary consultants. 24. vre colonization and isolation Subjective Constitutional: Reports: fatigue, Denies: fever, chills HEENT: Denies: congestion Respiratory: Denies: shortness of breath Cardiovascular: Denies: chest pain Gastrointestinal/Abdominal: Reports: other - no abdominal pain, Denies: nausea , vomiting, diarrhea Neurologic: Reports: weakness - + general weakness, Denies: headache Psychiatric: Denies: depression Skin: Denies: rash Hematologic: Denies: bleeding Musculoskeletal: Denies: pain Allergies: Coded Allergies: No Known Allergies (Unverified , 04/30/16) Objective Vital Signs Last 24 Hour Vital Signs Date Time Temp Pulse Resp B/P (MAP) Pulse Ox O2 Delivery O2 Flow Rate FiO2 08/08/17 11:46 97.2 82 20 132/87 98 97.2 08/08/17 11:38 136/80 08/08/17 09:53 100 136/80 08/08/17 09:53 100 136/80 08/08/17 08:00 97.5 100 20 136/80 94 97.5 08/08/17 06:49 141/73 08/08/17 03:54 97.5 107 20 132/68 97 Room Air 97.5 08/08/17 00:15 131/84 08/08/17 00:08 97.2 81 20 131/86 100 Room Air 97.2 08/07/17 21:42 98 134/88 08/07/17 21:42 98 134/88 08/07/17 19:38 97.5 77 20 112/70 99 Room Air 97.5 08/07/17 19:12 139/64 Height (Feet): 5 Height (Inches): 4.00 Weight (Pounds): 180 General Appearance: no acute distress HEENT: normocephalic, atraumatic, anicteric, mucous membranes moist Respiratory/Chest: lungs clear, normal breath sounds, no respiratory distress, no accessory muscle use, crackles/rales - occasional, rhonchi - bilaterally - occasional Cardiovascular: normal rate, regular rhythm, no gallop/murmur, no JVD Abdomen: normal bowel sounds, soft, non tender, no organomegaly, non distended Genitourinary: other - + pruitt - urine cloudy Extremities: no cyanosis Skin: no rash 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 The heart is enlarged. Mitral annulus is moderately calcified. The bones are osteopenic. IMPRESSION: Pneumonia suspected in the right upper lobe 08/08 - chest x-ray - Comparison: 08/06/2017 Findings: Cardiac silhouette is prominent. Atherosclerotic changes are seen. There is calcification of the mitral annulus. Mild interstitial opacities are again noted. No new infiltrates are seen. Osseous structures are stable. Impression: No significant change from 08/06/2017. Microbiology Date/Time Source Procedure Growth Status 08/06/17 03:50 Blood Blood Culture - Preliminary Enterococcus Species Resulted 08/06/17 03:45 Blood Blood Culture - Preliminary Resulted 08/06/17 06:15 Nasal Nares MRSA Culture - Final NO METHICILLIN RESISTANT STAPH AUREUS... Complete 08/06/17 05:23 Urine,Clean Catch Urine Culture - Preliminary Gram Negative Kailash Strep Species, Gamma-Hemolytic Resulted 08/06/17 06:15 Rectum VRE Culture - Final Enterococcus Faecium - Vre Complete Labs Test 08/06/17 03:45 08/06/17 05:08/07/17 05:20 White Blood Count 5.9 K/UL (4.8-10.8) 5.0 K/UL (4.8-10.8) Red Blood Count 4.58 M/UL (4.20-5.40) 4.38 M/UL (4.20-5.40) Hemoglobin 12.1 G/DL (12.0-16.0) 11.7 G/DL (12.0-16.0) Hematocrit 37.1 % (37.0-47.0) 36.1 % (37.0-47.0) Mean Corpuscular Volume 81 FL (80-99) 82 FL (80-99) Mean Corpuscular Hemoglobin 26.4 PG (27.0-31.0) 26.7 PG (27.0-31.0) Mean Corpuscular Hemoglobin Concent 32.5 G/DL (32.0-36.0) 32.4 G/DL (32.0-36.0) Red Cell Distribution Width 18.5 % (11.6-14.8) 19.0 % (11.6-14.8) Platelet Count 199 K/UL (150-450) 203 K/UL (150-450) Mean Platelet Volume 7.2 FL (6.5-10.1) 8.3 FL (6.5-10.1) Neutrophils (%) (Auto) 63.4 % (45.0-75.0) 53.2 % (45.0-75.0) Lymphocytes (%) (Auto) 25.4 % (20.0-45.0) 32.1 % (20.0-45.0) Monocytes (%) (Auto) 10.2 % (1.0-10.0) 12.8 % (1.0-10.0) Eosinophils (%) (Auto) 0.5 % (0.0-3.0) 1.0 % (0.0-3.0) Basophils (%) (Auto) 0.4 % (0.0-2.0) 0.9 % (0.0-2.0) Sodium Level 136 MMOL/L (136-145) 141 MMOL/L (136-145) Potassium Level 4.2 MMOL/L (3.5-5.1) 3.8 MMOL/L (3.5-5.1) Chloride Level 104 MMOL/L (98-107) 107 MMOL/L (98-107) Carbon Dioxide Level 28 MMOL/L (21-32) 26 MMOL/L (21-32) Anion Gap 4 mmol/L (5-15) 8 mmol/L (5-15) Blood Urea Nitrogen 21 mg/dL (7-18) 13 mg/dL (7-18) Creatinine 0.8 MG/DL (0.55-1.30) 0.8 MG/DL (0.55-1.30) Estimat Glomerular Filtration Rate mL/min (>60) mL/min (>60) Glucose Level 111 MG/DL (74-106) 77 MG/DL (74-106) Lactic Acid Level 1.50 mmol/L (0.66-2.22) Calcium Level 8.3 MG/DL (8.5-10.1) 8.2 MG/DL (8.5-10.1) Total Bilirubin 0.4 MG/DL (0.2-1.0) Aspartate Amino Transf (AST/SGOT) 76 U/L (15-37) Alanine Aminotransferase (ALT/SGPT) 56 U/L (12-78) Alkaline Phosphatase 154 U/L (46-116) Total Creatine Kinase 30 U/L (26-308) Creatine Kinase MB 0.8 NG/ML (0.0-3.6) Creatine Kinase MB Relative Index 2.6 Troponin I 0.011 ng/mL (0.000-0.056) Total Protein 7.9 G/DL (6.4-8.2) Albumin 2.0 G/DL (3.4-5.0) Globulin 5.9 g/dL Albumin/Globulin Ratio 0.3 (1.0-2.7) Urine Color Pale yellow Urine Appearance Cloudy Urine pH 7 (4.5-8.0) Urine Specific Victor 1.010 (1.005-1.035) Urine Protein 3+ (NEGATIVE) Urine Glucose (UA) Negative (NEGATIVE) Urine Ketones Negative (NEGATIVE) Urine Occult Blood 5+ (NEGATIVE) Urine Nitrite Positive (NEGATIVE) Urine Bilirubin Negative (NEGATIVE) Urine Urobilinogen Normal MG/DL (0.0-1.0) Urine Leukocyte Esterase 3+ (NEGATIVE) Urine RBC Tntc /HPF (0 - 2) Urine WBC 40-60 /HPF (0 - 2) Urine Squamous Epithelial Cells None /LPF (NONE/OCC) Urine Bacteria Few /HPF (NONE) Magnesium Level 1.4 MG/DL (1.8-2.4) Current Medications Medications (Trade) Dose Ordered Sig/Renea Route PRN Reason Start Time Stop Time Status Last Admin Dose Admin Acetaminophen (Tylenol) 650 mg Q4H PRN ORAL Mild Pain (Pain Scale 1-3) 08/06/17 06:15 09/05/17 06:14 Aspirin (ASA) 81 mg DAILY NG 08/07/17 09:00 09/06/17 08:59 08/08/17 09:53 Atorvastatin Calcium (Lipitor) 80 mg BEDTIME ORAL 08/06/17 21:00 09/05/17 20:59 08/07/17 21:41 Dextrose (Dextrose 50%) STAT PRN IV Hypoglycemia 08/06/17 06:15 09/05/17 06:14 Folic Acid (Folate) 1 mg DAILY ORAL 08/07/17 09:00 09/06/17 08:59 08/08/17 09:53 Hydralazine HCl (Apresoline) 10 mg EVERY 6 HOURS ORAL 08/07/17 00:00 09/06/17 00:00 08/08/17 11:38 Levetiracetam (Keppra) 750 mg Q12HR NG 08/06/17 21:00 09/05/17 20:59 08/08/17 09:56 Meropenem 1 gm/ Sodium Chloride 55 ml @ 110 mls/hr Q8HR IVPB 08/06/17 22:00 08/11/17 21:59 08/08/17 14:00 Metoprolol Tartrate (Lopressor) 50 mg EVERY 12 HOURS ORAL 08/06/17 21:00 09/05/17 20:59 08/08/17 09:53 Mirtazapine (Remeron) 15 mg BEDTIME ORAL 08/06/17 21:00 09/05/17 20:59 08/07/17 21:41 Nifedipine (Procardia XL) 30 mg Q12HR ORAL 08/06/17 21:00 09/05/17 20:59 08/08/17 09:53 Paroxetine HCl (Paxil) 20 mg DAILY ORAL 08/07/17 09:00 09/06/17 08:59 08/08/17 09:53 Sodium Chloride 1,000 ml @ 75 mls/hr [id number] IVLG 08/06/17 07:01 09/05/17 07:00 08/08/17 06:34 Sulfasalazine (Azulfidine) 500 mg BEFORE MEALS ORAL 08/07/17 06:30 09/06/17 06:29 08/08/17 11:38 Tamsulosin HCl (Flomax) 0.4 mg DAILY ORAL 08/07/17 09:00 09/06/17 08:59 08/08/17 09:53 Vancomycin HCl (Vanco rx to dose) 1 ea DAILY PRN MISC Per rx protocol 08/07/17 12:30 09/06/17 12:29 Vancomycin HCl/ Dextrose 250 ml @ 166.667 mls/hr Q24H IVPB 08/07/17 14:00 08/12/17 13:59 08/08/17 14:52 AMPARO HARRISON Aug 08, 2017 16:13
[2017-08-08] MEDS ORDERED: Tubing IV Secondary IV ONE (17:22)
[2017-08-08] MEDS ORDERED: Sterile Water Irrig 1000ml IRRIG ONE (17:22)
--- NOTE | 2017-08-08 21:34 | General Progress Note ---
Assessment/Plan Problem List: (1) Gross hematuria ICD Codes: R31.0 - Gross hematuria SNOMED: 610947420 (2) UTI (urinary tract infection) ICD Codes: N39.0 - Urinary tract infection, site not specified SNOMED: 99766426 (3) Acute blood loss anemia ICD Codes: D62 - Acute posthemorrhagic anemia SNOMED: 787933721 (4) Seizure disorder ICD Codes: G40.909 - Epilepsy, unspecified, not intractable, without status epilepticus SNOMED: 669069407 (5) H/O: CVA (cerebrovascular accident) ICD Codes: Z86.73 - Personal history of transient ischemic attack (TIA), and cerebral infarction without residual deficits SNOMED: 835798157 (6) Dementia ICD Codes: F03.90 - Unspecified dementia without behavioral disturbance SNOMED: 55747370 (7) HLD (hyperlipidemia) ICD Codes: E78.5 - Hyperlipidemia, unspecified SNOMED: 44513724 (8) Dysphagia ICD Codes: R13.10 - Dysphagia, unspecified SNOMED: 70827412, 477752823 (9) S/P percutaneous endoscopic gastrostomy (PEG) tube placement ICD Codes: Z93.1 - Gastrostomy status SNOMED: 072741005 (10) Chronic a-fib ICD Codes: I48.2 - Chronic atrial fibrillation SNOMED: 650994002 (11) Positive blood culture ICD Codes: R78.81 - Bacteremia SNOMED: 569725553 Status: stable Assessment/Plan Urology consulted Cont pruitt and monitor for recurrent bleeding Irrigate PRN Trend CBC, transfuse for hgb<7 or active bleeding ID consulted Empiric meropenem given h/o ESBL Vancomycin added 08/07 per ID given blood culture w/ GPC F/u urine culture F/u blood culture Cont SNF meds Cont tube feeds via PEG Pain control, supportive care, bowel regimen D/w PCP, possible plan to transition to hospice DVT Prophylaxis: SCD Code Status: Full Hospital Classification Declaration: Based on this initial evaluation, and depending on the patient's clinical course, I anticipate that this patient will require hospitalization for 1-2 days for gross hematuria, UTI and close respiratory/hemodynamic monitoring. Disposition: Once the patient is stable to leave the hospital, I anticipate the patient will likely be discharged to the following environment:back to SNF Discussed with patient/family, nursing staff, SW/CM, urology, ID, PCP regarding clinical status, treatment course, and disposition planning. Time of note may not reflect time of encounter. Subjective Date patient seen: Aug 08, 2017 Time patient seen: 14:00 ROS Limited/Unobtainable: No Allergies: Coded Allergies: No Known Allergies (Unverified , 04/30/16) Subjective No acute o/n events Blood cultures showing 1 bottle with gram positive cocci--enterococcus, ? contaminant Afebrile, VSS Urine culture shows >100K GNR, >100K gamma-hemolytic Strep Pt more awake, alert. Denies pain, SOB ROS limited 2/2 dementia, AMS Objective Last 24 Hour Vital Signs Date Time Temp Pulse Resp B/P (MAP) Pulse Ox O2 Delivery O2 Flow Rate FiO2 08/08/17 17:31 131/72 08/08/17 16:00 97.2 86 20 131/72 100 97.2 08/08/17 11:46 97.2 82 20 132/87 98 97.2 08/08/17 11:38 136/80 08/08/17 09:53 100 136/80 08/08/17 09:53 100 136/80 08/08/17 08:00 97.5 100 20 136/80 94 97.5 08/08/17 06:49 141/73 08/08/17 03:54 97.5 107 20 132/68 97 Room Air 97.5 08/08/17 00:15 131/84 08/08/17 00:08 97.2 81 20 131/86 100 Room Air 97.2 08/07/17 21:42 98 134/88 08/07/17 21:42 98 134/88 Intake and Output 08/07/17 08/08/17 19:00 07:00 Intake Total 105 ml 1735 ml Output Total 1200 ml 800 ml Balance -1095 ml 935 ml Intake Free Water 300 ml IV Total 75 ml 805 ml Tube Feeding 30 ml 630 ml Output Urine Total 1200 ml 800 ml Height (Feet): 5 Height (Inches): 4.00 Weight (Pounds): 180 Objective General: alert, cooperative, no distress, appears stated age Head: normocephalic, without obvious abnormality, atraumatic Eyes: conjunctivae/corneas clear. PERRL, EOM's intact Throat: lips, mucosa, and tongue normal. MMM Neck: supple, symmetrical, trachea midline, and no JVD Lungs: clear to auscultation bilaterally Heart: regular rate and rhythm, S1, S2 normal, no murmur, click, rub or gallop Abdomen: soft, non-tender, non-distended, bowel sounds normal; +PEG c/d/i : +pruitt Extremities: extremities normal, atraumatic, no cyanosis or edema Pulses: 2+ and symmetric Skin: skin color, texture, turgor normal; no rashes or lesions Agapito Butler M.D. Aug 08, 2017 21:34
[2017-08-08] MEDS: Atorvastatin 80mg tab ORAL SCH (23:17)
--- NOTE | 2017-08-08 23:53 | General Progress Note ---
Assessment/Plan Status: stable, progressing Subjective Neurologic/Psychiatric: Reports: anxiety, depressed, emotional problems Allergies: Coded Allergies: No Known Allergies (Unverified , 04/30/16) Objective Last 24 Hour Vital Signs Date Time Temp Pulse Resp B/P (MAP) Pulse Ox O2 Delivery O2 Flow Rate FiO2 08/08/17 23:19 157/101 08/08/17 23:18 95 157/101 08/08/17 23:17 95 157/101 08/08/17 17:31 131/72 08/08/17 16:00 97.2 86 20 131/72 100 97.2 08/08/17 11:46 97.2 82 20 132/87 98 97.2 08/08/17 11:38 136/80 08/08/17 09:53 100 136/80 08/08/17 09:53 100 136/80 08/08/17 08:00 97.5 100 20 136/80 94 97.5 08/08/17 06:49 141/73 08/08/17 03:54 97.5 107 20 132/68 97 Room Air 97.5 08/08/17 00:15 131/84 08/08/17 00:08 97.2 81 20 131/86 100 Room Air 97.2 Intake and Output 08/07/17 08/08/17 19:00 07:00 Intake Total 105 ml 1735 ml Output Total 1200 ml 800 ml Balance -1095 ml 935 ml Intake Free Water 300 ml IV Total 75 ml 805 ml Tube Feeding 30 ml 630 ml Output Urine Total 1200 ml 800 ml Height (Feet): 5 Height (Inches): 4.00 Weight (Pounds): 180 General Appearance: no apparent distress, alert, confused Kunal Tse M.D. Aug 08, 2017 23:53
[2017-08-09 04:00] VITALS: BP 130/72
[2017-08-09] MEDS: SulfASALAZine 500MG tab ORAL SCH ×3 (06:00→17:14)
[2017-08-09] MEDS: HydrALAZINE 10mg Tab ORAL SCH ×4 (06:00→23:19)
[2017-08-09] MEDS: Meropenem 1 GM in NS 55 ML IVPB SCH (06:04)
[2017-08-09 08:35] VITALS: BP 145/86
[2017-08-09] MEDS: Tamsulosin 0.4mg cap ORAL SCH (09:12)
[2017-08-09] MEDS: Aspirin Baby 81mg NG SCH (09:12)
[2017-08-09] MEDS: PARoxetine 20mg tab ORAL SCH (09:12)
[2017-08-09] MEDS: Metoprolol Tartrate 50mg tab ORAL SCH ×2 (09:19→23:20)
--- NOTE | 2017-08-09 10:58 | Urology Progress Note ---
Assessment/Plan Assessment/Plan 1. Gross hematuria. 2. Urinary retention. 3. Probable neurogenic bladder. 4. Pyuria, probable urinary tract infection and colonized urine. 5. Hematuria. 6. Proteinuria. 7. Renal cyst. 8. Sepsis. pruitt indwelling cath hand irrigated and patent hand irrigate PRN abx as ordered, per ID f/u on final urine cx cysto later consider repeat renal imaging study Subjective Allergies: Coded Allergies: No Known Allergies (Unverified , 04/30/16) Subjective all noted Objective Last 24 Hour Vital Signs Date Time Temp Pulse Resp B/P (MAP) Pulse Ox O2 Delivery O2 Flow Rate FiO2 08/09/17 09:19 101 145/86 08/09/17 09:12 101 145/86 08/09/17 08:35 98.2 101 20 145/86 98 Room Air 98.2 08/09/17 06:00 130/72 08/09/17 04:00 99.7 96 20 130/72 94 99.7 08/08/17 23:19 157/101 08/08/17 23:18 95 157/101 08/08/17 23:17 95 157/101 08/08/17 17:31 131/72 08/08/17 16:00 97.2 86 20 131/72 100 97.2 08/08/17 11:46 97.2 82 20 132/87 98 97.2 08/08/17 11:38 136/80 Intake and Output 08/08/17 08/09/17 19:00 07:00 Intake Total 1330 ml 1715 ml Output Total 350 ml Balance 980 ml 1715 ml Intake Free Water 480 ml 120 ml IV Total 130 ml 935 ml Tube Feeding 720 ml 660 ml Output Urine Total 350 ml Microbiology Date/Time Source Procedure Growth Status 08/06/17 03:50 Blood Blood Culture - Final Enterococcus Faecalis Complete 08/06/17 06:15 Nasal Nares MRSA Culture - Final NO METHICILLIN RESISTANT STAPH AUREUS... Complete 08/06/17 05:23 Urine,Clean Catch Urine Culture - Preliminary Pseudomonas Aeruginosa Enterococcus Faecalis Resulted 08/06/17 06:15 Rectum VRE Culture - Final Enterococcus Faecium - Vre Complete Current Medications Medications (Trade) Dose Ordered Sig/Renea Route PRN Reason Start Time Stop Time Status Last Admin Dose Admin Acetaminophen (Tylenol) 650 mg Q4H PRN ORAL Mild Pain (Pain Scale 1-3) 08/06/17 06:15 09/05/17 06:14 Aspirin (ASA) 81 mg DAILY NG 08/07/17 09:00 09/06/17 08:59 08/09/17 09:12 Atorvastatin Calcium (Lipitor) 80 mg BEDTIME ORAL 08/06/17 21:00 09/05/17 20:59 08/08/17 23:17 Dextrose (Dextrose 50%) STAT PRN IV Hypoglycemia 08/06/17 06:15 09/05/17 06:14 Folic Acid (Folate) 1 mg DAILY ORAL 08/07/17 09:00 09/06/17 08:59 08/09/17 09:12 Hydralazine HCl (Apresoline) 10 mg EVERY 6 HOURS ORAL 08/07/17 00:00 09/06/17 00:00 08/09/17 06:00 Levetiracetam (Keppra) 750 mg Q12HR NG 08/06/17 21:00 09/05/17 20:59 08/09/17 09:19 Meropenem 1 gm/ Sodium Chloride 55 ml @ 110 mls/hr Q8HR IVPB 08/06/17 22:00 08/11/17 21:59 08/09/17 06:04 Metoprolol Tartrate (Lopressor) 50 mg EVERY 12 HOURS ORAL 08/06/17 21:00 09/05/17 20:59 08/09/17 09:19 Mirtazapine (Remeron) 15 mg BEDTIME ORAL 08/06/17 21:00 09/05/17 20:59 08/08/17 23:18 Nifedipine (Procardia XL) 30 mg Q12HR ORAL 08/06/17 21:00 09/05/17 20:59 08/09/17 09:12 Paroxetine HCl (Paxil) 20 mg DAILY ORAL 08/07/17 09:00 09/06/17 08:59 08/09/17 09:12 Sodium Chloride 1,000 ml @ 75 mls/hr [id number] IVLG 08/06/17 07:01 09/05/17 07:00 08/08/17 23:16 Sulfasalazine (Azulfidine) 500 mg BEFORE MEALS ORAL 08/07/17 06:30 09/06/17 06:29 08/09/17 06:00 Tamsulosin HCl (Flomax) 0.4 mg DAILY ORAL 08/07/17 09:00 09/06/17 08:59 08/09/17 09:12 Vancomycin HCl (Vanco rx to dose) 1 ea DAILY PRN MISC Per rx protocol 08/07/17 12:30 09/06/17 12:29 Vancomycin HCl/ Dextrose 250 ml @ 166.667 mls/hr Q24H IVPB 08/07/17 14:00 08/12/17 13:59 08/08/17 14:52 Height (Feet): 5 Height (Inches): 4.00 Weight (Pounds): 180 Objective exam stable, urine michelle with some debris JOSH PENNINGTON Aug 09, 2017 10:58
[2017-08-09 12:10] VITALS: BP 138/82
--- NOTE | 2017-08-09 12:42 | General Progress Note ---
Assessment/Plan Problem List: (1) Enterococcal bacteremia ICD Codes: R78.81 - Bacteremia; B95.2 - Enterococcus as the cause of diseases classified elsewhere SNOMED: 6202031, 153767025, 961682815, 938995373148 (2) UTI (urinary tract infection) ICD Codes: N39.0 - Urinary tract infection, site not specified SNOMED: 68092412 (3) Gross hematuria ICD Codes: R31.0 - Gross hematuria SNOMED: 057448141 (4) Acute blood loss anemia ICD Codes: D62 - Acute posthemorrhagic anemia SNOMED: 428546893 (5) Seizure disorder ICD Codes: G40.909 - Epilepsy, unspecified, not intractable, without status epilepticus SNOMED: 270844229 (6) H/O: CVA (cerebrovascular accident) ICD Codes: Z86.73 - Personal history of transient ischemic attack (TIA), and cerebral infarction without residual deficits SNOMED: 957720040 (7) Dementia ICD Codes: F03.90 - Unspecified dementia without behavioral disturbance SNOMED: 35465309 (8) HLD (hyperlipidemia) ICD Codes: E78.5 - Hyperlipidemia, unspecified SNOMED: 17577440 (9) Dysphagia ICD Codes: R13.10 - Dysphagia, unspecified SNOMED: 88352803, 796886899 (10) S/P percutaneous endoscopic gastrostomy (PEG) tube placement ICD Codes: Z93.1 - Gastrostomy status SNOMED: 933333307 (11) Chronic a-fib ICD Codes: I48.2 - Chronic atrial fibrillation SNOMED: 498630957 Status: stable Assessment/Plan Urology consulted Cont pruitt and monitor for recurrent bleeding Irrigate PRN Trend CBC, transfuse for hgb<7 or active bleeding ID consulted Empiric meropenem given h/o ESBL Vancomycin added 08/07 per ID given blood culture w/ enteroccocus F/u urine culture F/u blood culture--1 bottle w/ enteroccous which is concerning as urine cx also w/ enterococcus Cont SNF meds Cont tube feeds via PEG Pain control, supportive care, bowel regimen D/w PCP, possible plan to transition to hospice Possible d/c tomorrow if cleared by urology and ID DVT Prophylaxis: SCD Code Status: Full Hospital Classification Declaration: Based on this initial evaluation, and depending on the patient's clinical course, I anticipate that this patient will require hospitalization for 1-2 days for gross hematuria, UTI and close respiratory/hemodynamic monitoring. Disposition: Once the patient is stable to leave the hospital, I anticipate the patient will likely be discharged to the following environment:back to SNF Discussed with patient/family, nursing staff, SW/CM, urology, ID, PCP regarding clinical status, treatment course, and disposition planning. Time of note may not reflect time of encounter. Subjective Date patient seen: Aug 09, 2017 Time patient seen: 12:42 ROS Limited/Unobtainable: Yes Constitutional: Reports: no symptoms HEENT: Reports: no symptoms Cardiovascular: Reports: no symptoms Respiratory: Reports: no symptoms Gastrointestinal/Abdominal: Reports: no symptoms Genitourinary: Reports: no symptoms Neurologic/Psychiatric: Reports: no symptoms Endocrine: Reports: no symptoms Hematologic/Lymphatic: Reports: no symptoms Allergies: Coded Allergies: No Known Allergies (Unverified , 04/30/16) Subjective No acute o/n events Blood cultures showing 1 bottle with gram positive cocci--enterococcus faecalis , 2nd bottle with diphteroids likely contaminant per ID Afebrile, VSS Urine culture shows >100K pseudomonas and enterococcus faecalis Pt more awake, alert. Denies pain, SOB ROS limited 2/2 dementia, AMS Objective Last 24 Hour Vital Signs Date Time Temp Pulse Resp B/P (MAP) Pulse Ox O2 Delivery O2 Flow Rate FiO2 08/09/17 12:10 97.7 77 18 138/82 100 Room Air 97.7 08/09/17 09:19 101 145/86 08/09/17 09:12 101 145/86 08/09/17 08:35 98.2 101 20 145/86 98 Room Air 98.2 08/09/17 06:00 130/72 08/09/17 04:00 99.7 96 20 130/72 94 99.7 08/08/17 23:19 157/101 08/08/17 23:18 95 157/101 08/08/17 23:17 95 157/101 08/08/17 17:31 131/72 08/08/17 16:00 97.2 86 20 131/72 100 97.2 Intake and Output 08/08/17 08/09/17 19:00 07:00 Intake Total 1330 ml 1715 ml Output Total 350 ml Balance 980 ml 1715 ml Intake Free Water 480 ml 120 ml IV Total 130 ml 935 ml Tube Feeding 720 ml 660 ml Output Urine Total 350 ml Height (Feet): 5 Height (Inches): 4.00 Weight (Pounds): 180 Objective General: alert, cooperative, no distress, appears stated age Head: normocephalic, without obvious abnormality, atraumatic Eyes: conjunctivae/corneas clear. PERRL, EOM's intact Throat: lips, mucosa, and tongue normal. MMM Neck: supple, symmetrical, trachea midline, and no JVD Lungs: clear to auscultation bilaterally Heart: regular rate and rhythm, S1, S2 normal, no murmur, click, rub or gallop Abdomen: soft, non-tender, non-distended, bowel sounds normal; +PEG c/d/i : +pruitt Extremities: extremities normal, atraumatic, no cyanosis or edema Pulses: 2+ and symmetric Skin: skin color, texture, turgor normal; no rashes or lesions Agapito Butler M.D. Aug 09, 2017 12:42
[2017-08-09] MEDS: Cefepime HCl 2 GM in NS 55 ML IVPB SCH (13:31)
[2017-08-09] MEDS: Vancomycin 1250mg/D5W 250ml IVPB SCH (14:00)
[2017-08-09 14:28] LABS: BASOPHILS % (AUTO) 0.8 % (0.0-2.0); EOSINOPHILS % (AUTO) 1.2 % (0.0-3.0); HEMATOCRIT 35.4 % (37.0-47.0); HEMOGLOBIN 11.2 G/DL (12.0-16.0); LYMPHOCYTES % (AUTO) 34.8 % (20.0-45.0); MEAN CORPUSCULAR VOLUME 83 FL (80-99); MONOCYTES % (AUTO) 13.2 % (1.0-10.0); PLATELET COUNT 219 K/UL (150-450); RED BLOOD COUNT 4.29 M/UL (4.20-5.40); RED CELL DISTRIBUTION WIDTH 18.3 % (11.6-14.8); WHITE BLOOD COUNT 5.1 K/UL (4.8-10.8)
[2017-08-09 14:37] LABS: ANION GAP 4 mmol/L (5-15); BLOOD UREA NITROGEN 11 mg/dL (7-18); CALCIUM 8.2 MG/DL (8.5-10.1); CARBON DIOXIDE 28 MMOL/L (21-32); CHLORIDE 107 MMOL/L (98-107); CREATININE 0.8 MG/DL (0.55-1.30); POTASSIUM 3.6 MMOL/L (3.5-5.1); SODIUM 139 MMOL/L (136-145)
[2017-08-09] MEDS: Vancomycin 750mg/NS 250ml IVPB SCH ×2 (15:31→23:15)
[2017-08-09 16:26] VITALS: BP 140/75
[2017-08-09 20:00] VITALS: BP 157/97
[2017-08-09] MEDS: Atorvastatin 80mg tab ORAL SCH (23:20)
[2017-08-10] MEDS: Cefepime HCl 2 GM in NS 55 ML IVPB SCH ×2 (02:30→15:39)
[2017-08-10 04:00] VITALS: BP 145/88
[2017-08-10] MEDS: Vancomycin 750mg/NS 250ml IVPB SCH ×2 (05:08→16:30)
[2017-08-10] MEDS: SulfASALAZine 500MG tab ORAL SCH ×3 (05:09→16:30)
[2017-08-10] MEDS: HydrALAZINE 10mg Tab ORAL SCH ×3 (05:09→18:28)
[2017-08-10] MEDS: Aspirin Baby 81mg NG SCH (08:57)
[2017-08-10] MEDS: PARoxetine 20mg tab ORAL SCH (08:57)
[2017-08-10] MEDS: Metoprolol Tartrate 50mg tab ORAL SCH (08:57)
[2017-08-10] MEDS: Tamsulosin 0.4mg cap ORAL SCH (08:58)
[2017-08-10 12:14] VITALS: BP 114/65
--- NOTE | 2017-08-10 12:31 | Diagnostic Imaging Report ---
Indication: Chest pain Technique: One view of the chest Comparison: 08/08/2017 Findings: The heart is enlarged. The lungs and pleural spaces are clear. There are mitral annular calcifications. Findings are unchanged Impression: No acute process
--- NOTE | 2017-08-10 12:43 | Urology Progress Note ---
Assessment/Plan Assessment/Plan 1. Gross hematuria. 2. Urinary retention. 3. Probable neurogenic bladder. 4. Pyuria, probable urinary tract infection and colonized urine. 5. Hematuria. 6. Proteinuria. 7. Renal cyst. 8. Sepsis. pruitt indwelling cath hand irrigated and patent hand irrigate PRN abx as ordered, per ID cysto later consider repeat renal imaging study Subjective Allergies: Coded Allergies: No Known Allergies (Unverified , 04/30/16) Subjective all noted Objective Last 24 Hour Vital Signs Date Time Temp Pulse Resp B/P (MAP) Pulse Ox O2 Delivery O2 Flow Rate FiO2 08/10/17 12:15 114/65 08/10/17 12:14 97.1 61 20 114/65 99 97.1 08/10/17 08:58 68 161/100 08/10/17 08:57 68 161/100 08/10/17 05:09 145/88 08/10/17 04:00 97.8 90 18 145/88 98 Room Air 97.8 08/09/17 23:20 90 157/97 08/09/17 23:19 90 157/97 08/09/17 23:19 157/97 08/09/17 20:00 97.1 93 18 157/97 99 Room Air 97.1 08/09/17 17:14 140/75 08/09/17 16:26 96.1 93 18 140/75 98 Room Air 96.1 08/09/17 12:44 138/82 Intake and Output 08/09/17 08/10/17 19:00 07:00 Intake Total 735 ml 1895.000 ml Output Total 2150 ml 1800 ml Balance -1415 ml 95.000 ml Intake Free Water 60 ml 120 ml IV Total 75 ml 1055.000 ml Tube Feeding 600 ml 720 ml Output Urine Total 2150 ml 1800 ml # Bowel Movements 1 1 Microbiology Date/Time Source Procedure Growth Status 08/06/17 03:50 Blood Blood Culture - Final Enterococcus Faecalis Complete 08/06/17 06:15 Nasal Nares MRSA Culture - Final NO METHICILLIN RESISTANT STAPH AUREUS... Complete 08/06/17 05:23 Urine,Clean Catch Urine Culture - Final Pseudomonas Aeruginosa Enterococcus Faecalis Complete 08/06/17 06:15 Rectum VRE Culture - Final Enterococcus Faecium - Vre Complete Current Medications Medications (Trade) Dose Ordered Sig/Renea Route PRN Reason Start Time Stop Time Status Last Admin Dose Admin Acetaminophen (Tylenol) 650 mg Q4H PRN ORAL Mild Pain (Pain Scale 1-3) 08/06/17 06:15 09/05/17 06:14 Aspirin (ASA) 81 mg DAILY NG 08/07/17 09:00 09/06/17 08:59 08/10/17 08:57 Atorvastatin Calcium (Lipitor) 80 mg BEDTIME ORAL 08/06/17 21:00 09/05/17 20:59 08/09/17 23:20 Cefepime HCl 2 gm/ Sodium Chloride 55 ml @ 110 mls/hr Q12H IVPB 08/09/17 14:00 08/16/17 13:59 08/10/17 02:30 Dextrose (Dextrose 50%) STAT PRN IV Hypoglycemia 08/06/17 06:15 09/05/17 06:14 Folic Acid (Folate) 1 mg DAILY ORAL 08/07/17 09:00 09/06/17 08:59 08/10/17 08:58 Hydralazine HCl (Apresoline) 10 mg EVERY 6 HOURS ORAL 08/07/17 00:00 09/06/17 00:00 08/10/17 12:15 Levetiracetam (Keppra) 750 mg Q12HR NG 08/06/17 21:00 09/05/17 20:59 08/10/17 08:57 Metoprolol Tartrate (Lopressor) 50 mg EVERY 12 HOURS ORAL 08/06/17 21:00 09/05/17 20:59 08/10/17 08:57 Mirtazapine (Remeron) 15 mg BEDTIME ORAL 08/06/17 21:00 09/05/17 20:59 08/09/17 23:20 Nifedipine (Procardia XL) 30 mg Q12HR ORAL 08/06/17 21:00 09/05/17 20:59 08/10/17 08:58 Paroxetine HCl (Paxil) 20 mg DAILY ORAL 08/07/17 09:00 09/06/17 08:59 08/10/17 08:57 Sodium Chloride 1,000 ml @ 75 mls/hr [id number] IVLG 08/06/17 07:01 09/05/17 07:00 08/10/17 05:09 Sulfasalazine (Azulfidine) 500 mg BEFORE MEALS ORAL 08/07/17 06:30 09/06/17 06:29 08/10/17 12:16 Tamsulosin HCl (Flomax) 0.4 mg DAILY ORAL 08/07/17 09:00 09/06/17 08:59 08/10/17 08:58 Vancomycin HCl (Vanco rx to dose) 1 ea DAILY PRN MISC Per rx protocol 08/07/17 12:30 09/06/17 12:29 Vancomycin/Sodium Chloride 250 ml @ 166.667 mls/hr Q12HR@0400,1600 IVPB 08/09/17 16:00 08/14/17 15:59 08/10/17 05:08 Laboratory Tests 08/09/17 14:10: White Blood Count 5.1, Red Blood Count 4.29, Hemoglobin 11.2L, Hematocrit 35.4L , Mean Corpuscular Volume 83, Mean Corpuscular Hemoglobin 26.2L, Mean Corpuscular Hemoglobin Concent 31.7L, Red Cell Distribution Width 18.3H, Platelet Count 219, Mean Platelet Volume 7.2, Neutrophils (%) (Auto) 50.0, Lymphocytes (%) (Auto) 34.8, Monocytes (%) (Auto) 13.2H, Eosinophils (%) (Auto) 1.2, Basophils (%) (Auto) 0.8, Sodium Level 139, Potassium Level 3.6, Chloride Level 107, Carbon Dioxide Level 28, Anion Gap 4L, Blood Urea Nitrogen 11, Creatinine 0.8, Estimat Glomerular Filtration Rate , Glucose Level 84, Calcium Level 8.2L, Vancomycin Level Trough 9.0 Height (Feet): 5 Height (Inches): 4.00 Weight (Pounds): 180 Objective exam stable, urine michelle with some debris JOSH PENNINGTON Aug 10, 2017 12:43
[2017-08-10 16:00] VITALS: BP 127/78
[2017-08-10] MEDS ORDERED: AMPICILLIN250 MG PO (16:24)
[2017-08-10] MEDS ORDERED: LEVAQUIN500 MG ORAL (16:24)
--- NOTE | 2017-08-10 16:27 | Infectious Diseases Prog Note ---
Assessment/Plan Assessment/Plan ASSESSMENT AND PLAN: 1. pseudomonas uti/enterococcus uti, enterococcus bacteremia, diphtheroids likely is contaminant, vre colonization, ? pna, chest x-ray nad now - vancomycin and cefepime - check surveillance blood cultures and labs - can transition to po ampicillin plus levofloxacin - d/w Dr. Altman 2.The patient has a history of extended spectrum beta-lactamases urinary tract infection that is recurrent. 3. History of anemia. 4. Dysphagia. 5. Aspiration risk. 6. Seizure disorder. 7. Altered mental status and encephalopathy history. 8. History of urinary tract infection and sepsis. 9. Hyperlipidemia. 10. History of lactic acidosis. 11. History of atrial fibrillation with rapid ventricular response. 12. Cerebrovascular accident. 13. Dementia. 14. Congestive heart failure. 15. Depression. 16. Hypertension. 17. Atrial fibrillation. 18. Allergies are negative. 19. Social history is negative. 20. Family history is noncontributory. 21. MAR was noted. 22. Case was discussed with RN. 23. Continue treatment per primary consultants. 24. vre colonization and isolation Subjective Constitutional: Denies: fever HEENT: Denies: congestion Respiratory: Denies: shortness of breath Cardiovascular: Denies: chest pain Gastrointestinal/Abdominal: Denies: nausea, vomiting, diarrhea Genitourinary: Reports: other - + pruitt Neurologic: Denies: headache Psychiatric: Denies: depression Skin: Denies: rash Hematologic: Denies: bleeding Musculoskeletal: Denies: pain Allergies: Coded Allergies: No Known Allergies (Unverified , 04/30/16) Objective Vital Signs Last 24 Hour Vital Signs Date Time Temp Pulse Resp B/P (MAP) Pulse Ox O2 Delivery O2 Flow Rate FiO2 08/10/17 12:15 114/65 08/10/17 12:14 97.1 61 20 114/65 99 97.1 08/10/17 08:58 68 161/100 08/10/17 08:57 68 161/100 08/10/17 05:09 145/88 08/10/17 04:00 97.8 90 18 145/88 98 Room Air 97.8 08/09/17 23:20 90 157/97 08/09/17 23:19 90 157/97 08/09/17 23:19 157/97 08/09/17 20:00 97.1 93 18 157/97 99 Room Air 97.1 08/09/17 17:14 140/75 08/09/17 16:26 96.1 93 18 140/75 98 Room Air 96.1 Height (Feet): 5 Height (Inches): 4.00 Weight (Pounds): 180 General Appearance: no acute distress HEENT: normocephalic, atraumatic, mucous membranes moist Respiratory/Chest: lungs clear, normal breath sounds, no accessory muscle use, respiratory distress Cardiovascular: normal rate, regular rhythm, no gallop/murmur, no JVD Abdomen: normal bowel sounds, soft, non tender, no organomegaly, non distended Genitourinary: other - + pruitt - urine clearer Extremities: no cyanosis Skin: no rash Neurologic/Psychiatric: returns processor II-XII grossly normal, alert, responsive Lymphatic: no neck adenopathy Musculoskeletal: no effusion Objective 08/06 - chest x-ray - Findings: Patchy infiltrate suspected in the right upper lobe. The heart is enlarged. Mitral annulus is moderately calcified. The bones are osteopenic. IMPRESSION: Pneumonia suspected in the right upper lobe 08/08 - chest x-ray - Comparison: 08/06/2017 Findings: Cardiac silhouette is prominent. Atherosclerotic changes are seen. There is calcification of the mitral annulus. Mild interstitial opacities are again noted. No new infiltrates are seen. Osseous structures are stable. Impression: No significant change from 08/06/2017. 08/10 - chest x-ray - nad (report noted) Microbiology Date/Time Source Procedure Growth Status 08/06/17 03:50 Blood Blood Culture - Final Enterococcus Faecalis Complete 08/06/17 06:15 Nasal Nares MRSA Culture - Final NO METHICILLIN RESISTANT STAPH AUREUS... Complete 08/06/17 05:23 Urine,Clean Catch Urine Culture - Final Pseudomonas Aeruginosa Enterococcus Faecalis Complete 08/06/17 06:15 Rectum VRE Culture - Final Enterococcus Faecium - Vre Complete Labs Test 08/09/17 14:10 White Blood Count 5.1 K/UL (4.8-10.8) Red Blood Count 4.29 M/UL (4.20-5.40) Hemoglobin 11.2 G/DL (12.0-16.0) Hematocrit 35.4 % (37.0-47.0) Mean Corpuscular Volume 83 FL (80-99) Mean Corpuscular Hemoglobin 26.2 PG (27.0-31.0) Mean Corpuscular Hemoglobin Concent 31.7 G/DL (32.0-36.0) Red Cell Distribution Width 18.3 % (11.6-14.8) Platelet Count 219 K/UL (150-450) Mean Platelet Volume 7.2 FL (6.5-10.1) Neutrophils (%) (Auto) 50.0 % (45.0-75.0) Lymphocytes (%) (Auto) 34.8 % (20.0-45.0) Monocytes (%) (Auto) 13.2 % (1.0-10.0) Eosinophils (%) (Auto) 1.2 % (0.0-3.0) Basophils (%) (Auto) 0.8 % (0.0-2.0) Sodium Level 139 MMOL/L (136-145) Potassium Level 3.6 MMOL/L (3.5-5.1) Chloride Level 107 MMOL/L (98-107) Carbon Dioxide Level 28 MMOL/L (21-32) Anion Gap 4 mmol/L (5-15) Blood Urea Nitrogen 11 mg/dL (7-18) Creatinine 0.8 MG/DL (0.55-1.30) Estimat Glomerular Filtration Rate mL/min (>60) Glucose Level 84 MG/DL (74-106) Calcium Level 8.2 MG/DL (8.5-10.1) Vancomycin Level Trough 9.0 ug/mL (5.0-12.0) Current Medications Medications (Trade) Dose Ordered Sig/Renea Route PRN Reason Start Time Stop Time Status Last Admin Dose Admin Acetaminophen (Tylenol) 650 mg Q4H PRN ORAL Mild Pain (Pain Scale 1-3) 08/06/17 06:15 09/05/17 06:14 Aspirin (ASA) 81 mg DAILY NG 08/07/17 09:00 09/06/17 08:59 08/10/17 08:57 Atorvastatin Calcium (Lipitor) 80 mg BEDTIME ORAL 08/06/17 21:00 09/05/17 20:59 08/09/17 23:20 Cefepime HCl 2 gm/ Sodium Chloride 55 ml @ 110 mls/hr Q12H IVPB 08/09/17 14:00 3/18/18 13:59 08/10/17 15:39 Dextrose (Dextrose 50%) STAT PRN IV Hypoglycemia 08/06/17 06:15 09/05/17 06:14 Folic Acid (Folate) 1 mg DAILY ORAL 08/07/17 09:00 09/06/17 08:59 08/10/17 08:58 Hydralazine HCl (Apresoline) 10 mg EVERY 6 HOURS ORAL 08/07/17 00:00 09/06/17 00:00 08/10/17 12:15 Levetiracetam (Keppra) 750 mg Q12HR NG 08/06/17 21:00 09/05/17 20:59 08/10/17 08:57 Metoprolol Tartrate (Lopressor) 50 mg EVERY 12 HOURS ORAL 08/06/17 21:00 09/05/17 20:59 08/10/17 08:57 Mirtazapine (Remeron) 15 mg BEDTIME ORAL 08/06/17 21:00 09/05/17 20:59 08/09/17 23:20 Nifedipine (Procardia XL) 30 mg Q12HR ORAL 08/06/17 21:00 09/05/17 20:59 08/10/17 08:58 Paroxetine HCl (Paxil) 20 mg DAILY ORAL 08/07/17 09:00 09/06/17 08:59 08/10/17 08:57 Sodium Chloride 1,000 ml @ 75 mls/hr [id number] IVLG 08/06/17 07:01 09/05/17 07:00 08/10/17 05:09 Sulfasalazine (Azulfidine) 500 mg BEFORE MEALS ORAL 08/07/17 06:30 09/06/17 06:29 08/10/17 12:16 Tamsulosin HCl (Flomax) 0.4 mg DAILY ORAL 08/07/17 09:00 09/06/17 08:59 08/10/17 08:58 Vancomycin HCl (Vanco rx to dose) 1 ea DAILY PRN MISC Per rx protocol 08/07/17 12:30 09/06/17 12:29 Vancomycin/Sodium Chloride 250 ml @ 166.667 mls/hr Q12HR@0400,1600 IVPB 08/09/17 16:00 08/14/17 15:59 3/12/18 05:08 ALKASSPOOLES,SALAM Aug 10, 2017 16:27
[2017-08-10 18:28] VITALS: BP 127/78
[2017-08-10] MEDS ORDERED: NS Irrig 1000ml ONE (18:56)
[2017-08-10] MEDS ORDERED: Tubing IV Secondary IV ONE (18:56)
--- NOTE | 2017-08-10 23:07 | General Progress Note ---
Assessment/Plan Status: stable, progressing Subjective Date patient seen: Aug 09, 2017 Neurologic/Psychiatric: Reports: anxiety, depressed, emotional problems Allergies: Coded Allergies: No Known Allergies (Unverified , 04/30/16) Objective Last 24 Hour Vital Signs Date Time Temp Pulse Resp B/P (MAP) Pulse Ox O2 Delivery O2 Flow Rate FiO2 08/10/17 18:28 127/78 08/10/17 16:00 98.6 85 20 127/78 100 Room Air 98.6 08/10/17 12:15 114/65 08/10/17 12:14 97.1 61 20 114/65 99 97.1 08/10/17 08:58 68 161/100 08/10/17 08:57 68 161/100 08/10/17 05:09 145/88 08/10/17 04:00 97.8 90 18 145/88 98 Room Air 97.8 08/09/17 23:20 90 157/97 08/09/17 23:19 90 157/97 08/09/17 23:19 157/97 Intake and Output 08/09/17 08/10/17 19:00 07:00 Intake Total 735 ml 1895.000 ml Output Total 2150 ml 1800 ml Balance -1415 ml 95.000 ml Intake Free Water 60 ml 120 ml IV Total 75 ml 1055.000 ml Tube Feeding 600 ml 720 ml Output Urine Total 2150 ml 1800 ml # Bowel Movements 1 1 Height (Feet): 5 Height (Inches): 4.00 Weight (Pounds): 180 Kunal Tse M.D. Aug 10, 2017 23:07
--- NOTE | 2017-08-10 23:07 | General Progress Note ---
Assessment/Plan Status: stable, progressing Subjective Date patient seen: Aug 10, 2017 Neurologic/Psychiatric: Reports: anxiety, depressed, emotional problems Allergies: Coded Allergies: No Known Allergies (Unverified , 04/30/16) Objective Last 24 Hour Vital Signs Date Time Temp Pulse Resp B/P (MAP) Pulse Ox O2 Delivery O2 Flow Rate FiO2 08/10/17 18:28 127/78 08/10/17 16:00 98.6 85 20 127/78 100 Room Air 98.6 08/10/17 12:15 114/65 08/10/17 12:14 97.1 61 20 114/65 99 97.1 08/10/17 08:58 68 161/100 08/10/17 08:57 68 161/100 08/10/17 05:09 145/88 08/10/17 04:00 97.8 90 18 145/88 98 Room Air 97.8 08/09/17 23:20 90 157/97 08/09/17 23:19 90 157/97 08/09/17 23:19 157/97 Intake and Output 08/09/17 08/10/17 19:00 07:00 Intake Total 735 ml 1895.000 ml Output Total 2150 ml 1800 ml Balance -1415 ml 95.000 ml Intake Free Water 60 ml 120 ml IV Total 75 ml 1055.000 ml Tube Feeding 600 ml 720 ml Output Urine Total 2150 ml 1800 ml # Bowel Movements 1 1 Height (Feet): 5 Height (Inches): 4.00 Weight (Pounds): 180 General Appearance: no apparent distress, alert, confused Kunal Tse M.D. Aug 10, 2017 23:07
--- NOTE | 2017-08-12 08:27 | Discharge Summary ---
Discharge Summary Hospital Course Date of Admission Aug 06, 2017 at 06:03 Date of Discharge Aug 10, 2017 at 18:57 Admitting Diagnosis Gross hematuria, UTI Reason for Hospitalization: Gross hematuria, UTI HPI 71y/o female with pmh of HTN, HLD, CVA, depression, chronic Afib (was on Eliquis but now held given issues w/ bleeding), seizure d/o, dementia, urinary retention w/ chronic indwelling pruitt catheter, dysphgia s/p PEG who presents with gross hematuris. Pt noted to have gross hematuria since last night at SNF. No reports of f/c, n/v, d/c, chest pain, SOB, abd pain. Pt has been off anticoagulation for Afib given concern for bleeding risk and fall risk. In ED, pt AFVSS. Noted to have gross hematuria via pruitt. Pruitt was flushed and noted to have leakage of urine around pruitt so possibly was placed in urethra. New pruitt reinserted w/ improvement. Concern for UTI, pt given ertapenem given h /o ESBL. Consultations Urology, Infectious disease Hospital Course Pt was admitted and seen by urology and ID. She was placed on empiric meropenem given h/o ESBL. Urology irrigated pruitt with improvement in hematuria. Pt noted to have positive blood culture for enterococcus faecium. Urine culture also showed enterococcus, as well as pseudomonas. Pt was started on vancoymcin and meropenem was switched to cefepime. Once hematuria controlled and pt HD stable, she was discharged back to SNF. She is to complete course of ampicillin and levaquin for 1 week per ID. Discharge physical exam: General Appearance: well appearing, no apparent distress, alert, confused Head: normocephalic, atraumatic Eyes: bilateral eye PERRL, bilateral eye EOMI ENT: hearing grossly normal, normal pharynx Neck: full range of motion, supple, no meningismus Respiratory: chest non-tender, lungs clear, normal breath sounds Cardiovascular: regular rate, rhythm, no murmur Gastrointestinal: normal bowel sounds, non tender, no mass, no organomegaly, no bruit, non-distended, other - gtube c/d/i Genitourinary: +pruitt now w/ clear urine Musculoskeletal: back normal, gait/station normal, normal range of motion Neurologic: alert Psychiatric: mood/affect normal Skin: warm/dry Discharge diagnoses: (1) Enterococcus faecium bacteremia ICD Codes: R78.81 - Bacteremia; B95.2 - Enterococcus as the cause of diseases classified elsewhere SNOMED: 8678138, 681165344, 462456642, [id number] (2) UTI (urinary tract infection) ICD Codes: N39.0 - Urinary tract infection, site not specified SNOMED: 14725401 (3) Gross hematuria ICD Codes: R31.0 - Gross hematuria SNOMED: 679714315 (4) Acute blood loss anemia ICD Codes: D62 - Acute posthemorrhagic anemia SNOMED: 889388236 (5) Seizure disorder ICD Codes: G40.909 - Epilepsy, unspecified, not intractable, without status epilepticus SNOMED: 883674106 (6) H/O: CVA (cerebrovascular accident) ICD Codes: Z86.73 - Personal history of transient ischemic attack (TIA), and cerebral infarction without residual deficits SNOMED: 224890819 (7) Dementia ICD Codes: F03.90 - Unspecified dementia without behavioral disturbance SNOMED: 95787087 (8) HLD (hyperlipidemia) ICD Codes: E78.5 - Hyperlipidemia, unspecified SNOMED: 67470137 (9) Dysphagia ICD Codes: R13.10 - Dysphagia, unspecified SNOMED: 61786036, 049447776 (10) S/P percutaneous endoscopic gastrostomy (PEG) tube placement ICD Codes: Z93.1 - Gastrostomy status SNOMED: 419772046 (11) Chronic a-fib ICD Codes: I48.2 - Chronic atrial fibrillation Discharge Medications New Medications: Ampicillin (Ampicillin Trihydrate) 250 Mg Capsule 500 MG PO QID for 7 Days, #28 CAP via PEG Levofloxacin* (Levaquin*) 500 Mg Tablet 500 MG ORAL DAILY for 7 Days, #7 TAB 0 Refills via PEG Continued Medications: Acetaminophen* (Acetaminophen 325MG Tablet*) 325 Mg Tablet 650 MG ORAL Q4H PRN for For Pain, TAB Aspirin* (Aspirin*) 81 Mg Tab.chew 81 MG NG DAILY for 90 Days, TAB Atorvastatin Calcium* (Lipitor*) 80 Mg Tablet 80 MG ORAL BEDTIME, TAB Folic Acid* (Folic Acid*) 1 Mg Tablet 1 MG ORAL DAILY, TAB Hydralazine Hcl* (Hydralazine Hcl*) 10 Mg Tablet 10 MG ORAL EVERY 6 HOURS, TAB Levetiracetam (Levetiracetam) 500 Mg Tablet 750 MG NG Q12HR for 90 Days, TAB Methotrexate Sodium* (Methotrexate*) 2.5 Mg Tablet 2.5 MG PO, TAB Metoprolol Tartrate* (Metoprolol Tartrate*) 50 Mg Tablet 50 MG ORAL EVERY 12 HOURS, TAB Metoprolol Tartrate* (Metoprolol Tartrate*) 50 Mg Tablet 50 MG ORAL Q12HR for 90 Days, TAB Mirtazapine* (Remeron*) 15 Mg Tablet 15 MG ORAL BEDTIME, TAB Nifedipine (Nifedipine*) 20 Mg Capsule 30 MG ORAL EVERY 12 HOURS, CAP Nifedipine Xl* (Procardia Xl*) 30 Mg Tab.er.24 30 MG ORAL Q12HR for 90 Days, TAB Omeprazole (Omeprazole) 20 Mg Capsule.dr 20 MG ORAL DAILY, CAP Paroxetine Hcl* (Paxil*) 20 Mg Tablet 20 MG ORAL DAILY, TAB 0 Refills Sulfasalazine* (Azulfidine*) 500 Mg Tablet 500 MG ORAL BEFORE MEALS, TAB Tamsulosin HCl (Flomax) 0.4 Mg Cap.er.24h 0.4 MG ORAL DAILY for 30 Days, CAP Trazodone* (Trazodone*) 150 Mg Tablet 12.5 MG ORAL BEDTIME, TAB Valsartan (Diovan) 80 Mg Tab 80 MG ORAL DAILY, TAB Discontinued Medications: Ertapenem Sodium* (INVanz*) 1 Gm Vial.port 1 GM IVPB Q24H for 7 Days, VIAL Discharge Condition Upon Discharge: stable Discharge Disposition Patient was discharged to SNF Discharge Diagnoses: Agapito Butler M.D. Aug 12, 2017 08:27
== END 2017-08-10 18:57 | DRG 690 ==
LOC: EDBD 02:54 → EDUNIT# 02:54 → EMR 03:36 → EDBEDREQ 06:01 → 4W 06:03
DX: N39.0 Urinary tract infection, site not specified (principal); R78.81 Bacteremia; D62 Acute posthemorrhagic anemia; Z43.1 Encounter for attention to gastrostomy; I50.9 Heart failure, unspecified; I48.2 Chronic atrial fibrillation; G40.909 Epilepsy, unspecified, not intractable, without status epilepticus; F03.90 Unspecified dementia, unspecified severity, without behavioral disturbance, psychotic disturbance, mood disturbance, and anxiety; N28.1 Cyst of kidney, acquired; I11.0 Hypertensive heart disease with heart failure; F32.9 Major depressive disorder, single episode, unspecified; N31.9 Neuromuscular dysfunction of bladder, unspecified; R13.10 Dysphagia, unspecified; B96.20 Unspecified Escherichia coli [E. coli] as the cause of diseases classified elsewhere; R31.0 Gross hematuria; E78.5 Hyperlipidemia, unspecified; R80.9 Proteinuria, unspecified; Z16.12 Extended spectrum beta lactamase (ESBL) resistance; Z86.73 Personal history of transient ischemic attack (TIA), and cerebral infarction without residual deficits; B95.2 Enterococcus as the cause of diseases classified elsewhere; K21.9 Gastro-esophageal reflux disease without esophagitis; R33.9 Retention of urine, unspecified
CPT/HCPCS: 36415; 71045; 80048; 80053; 80202; 80299; 81003; 82550; 82553; 83605; 83735; 84484; 85025; 87040; 87081; 87086; 87181; 93005; 99285

== ENCOUNTER 2017-11-16 15:30 | Emergency (ER) | payer MEDICARE, OTHER ==
[~2017-11-16] VITALS: Ht 165.1 cm; Wt 70.3 kg
[~2017-11-16 15:30] MED LIST changes: +AMPICILLIN250 MG PO; +LEVAQUIN500 MG ORAL
[2017-11-16 15:36] VITALS: BP 126/84
[2017-11-16] MEDS ORDERED: CRANBERRY400 M1 GT (15:36)
--- NOTE | 2017-11-16 16:06 | Emergency Room Report ---
History of Present Illness General Chief Complaint: Vaginal Source: Medical Record, EMS Present Illness HPI Patient presents from nursing facility with reports of vaginal bleeding a she herself has appearance of previous significant CVA Is not able to provide history There was no reports of vomiting or diarrhea Unclear the exact timing with the initial onset of the bleeding Patient is unable to provide history regarding painful urination Allergies: Coded Allergies: No Known Allergies (Unverified , 04/30/16) Patient History Limited by: medical condition Past Medical History: see triage record Pertinent Family History: unable to obtain Reviewed Nursing Documentation: PMH: Agreed; PSxH: Agreed Nursing Documentation-PMH Past Medical History: No History, Except For Hx Cardiac Problems: Yes - A. Fib, Anemia, CHF Hx Hypertension: Yes - Hyperlipidemia, rheumatoid arthritis Hx Cancer: No Hx Gastrointestinal Problems: Yes - Enterocolitis (C Diff), dysphagia, Gastrostomy Hx Neurological Problems: Yes - Dementia Hx Cerebrovascular Accident: Yes - TIA, Cerebral Infarction Hx Dementia: Yes Hx Seizures: Yes Review of Systems All Other Systems: limited - Other than the ones mentioned in the history of present illness all others are reviewed however they do stay limited due to the patient's mental status Physical Exam Vital Signs Date Time Temp Pulse Resp B/P (MAP) Pulse Ox O2 Delivery O2 Flow Rate FiO2 11/16/17 15:26 60 18 120/80 Sp02 EP Interpretation: reviewed, normal General Appearance: no apparent distress Head: normocephalic, atraumatic Eyes: bilateral eye PERRL, bilateral eye EOMI ENT: normal pharynx Neck: supple, thyroid normal Respiratory: lungs clear, normal breath sounds Cardiovascular #1: no edema, irregularly irregular Gastrointestinal: non tender, soft Genitourinary: other - Appearance of cervical prolapse, this is visualized under direct visualization essentially fully involving the vaginal vault however does not protrude out Musculoskeletal: other - Patient moving both upper extremities equally no obvious focal deficit Neurologic: responsive - To physical stimuli Skin: normal color, no rash Lymphatic: no adenopathy Medical Decision Making Diagnostic Impression: Primary Impression: Uterine prolapse ER Course Upon initial arrival multiple differentials are considered patient had initially ultrasound and imaging ordered There is evidence of an ultrasound in the system from recent presentation therefore this was not repeated CT shows similar findings to the ultrasound There is concern of possible mass versus carcinoma mass Patient clinically has prolapsed uterus At this time blood work is at baseline levels Reviewing the patient's medical records she appears to have had a gynecology follow-up today upon further discussion patient was sent to the clinic however was not able to be seen as the facility did not have the appropriate bed for the patient At this time patient has a benign acute medical evaluation There is concern of possible malignancy And patient requires close outpatient follow-up Labs Test 11/16/17 16:00 11/16/17 16:38 Sodium Level 135 MMOL/L (136-145) Potassium Level 4.6 MMOL/L (3.5-5.1) Chloride Level 103 MMOL/L (98-107) Carbon Dioxide Level 29 MMOL/L (21-32) Anion Gap 3 mmol/L (5-15) Blood Urea Nitrogen 23 mg/dL (7-18) Creatinine 0.8 MG/DL (0.55-1.30) Estimat Glomerular Filtration Rate mL/min (>60) Glucose Level 81 MG/DL (74-106) Calcium Level 8.2 MG/DL (8.5-10.1) Total Bilirubin 0.2 MG/DL (0.2-1.0) Aspartate Amino Transf (AST/SGOT) 48 U/L (15-37) Alanine Aminotransferase (ALT/SGPT) 30 U/L (12-78) Alkaline Phosphatase 117 U/L (46-116) Total Protein 8.1 G/DL (6.4-8.2) Albumin 2.1 G/DL (3.4-5.0) Globulin 6.0 g/dL Albumin/Globulin Ratio 0.3 (1.0-2.7) Lipase 72 U/L (73-393) White Blood Count 8.6 K/UL (4.8-10.8) Red Blood Count 4.04 M/UL (4.20-5.40) Hemoglobin 10.3 G/DL (12.0-16.0) Hematocrit 32.1 % (37.0-47.0) Mean Corpuscular Volume 80 FL (80-99) Mean Corpuscular Hemoglobin 25.5 PG (27.0-31.0) Mean Corpuscular Hemoglobin Concent 32.0 G/DL (32.0-36.0) Red Cell Distribution Width 16.6 % (11.6-14.8) Platelet Count 248 K/UL (150-450) Mean Platelet Volume 6.8 FL (6.5-10.1) Neutrophils (%) (Auto) 50.2 % (45.0-75.0) Lymphocytes (%) (Auto) 37.6 % (20.0-45.0) Monocytes (%) (Auto) 10.6 % (1.0-10.0) Eosinophils (%) (Auto) 1.2 % (0.0-3.0) Basophils (%) (Auto) 0.4 % (0.0-2.0) CT/MRI/US Diagnostic Results CT/MRI/US Diagnostic Results : Impression CT abdomen pelvisIMPRESSION: Limited exam without intravenous and oral contrast. Within these limitations: * Heterogeneous mass lesion involving the bladder, with portions of the posterior bladder inseparable from the lower uterine segment/cervix and vagina. Findings are highly concerning for malignancy, either bladder or gynecologic (vaginal/cervical/uterine) in etiology. Consider direct visualization with cystoscopy and/or gynecologic exam. Foci of air within the bladder can be related to recent catheterization or fistulous connection. * Small pelvic lymph nodes. * Multiple bilateral pulmonary nodules most concerning for metastatic disease given the above described mass * Cardiomegaly and coronary artery disease. * Diverticulosis without evidence of acute diverticulitis. * Gastrostomy tube in place. Last Vital Signs Date Time Temp Pulse Resp B/P (MAP) Pulse Ox O2 Delivery O2 Flow Rate FiO2 11/16/17 15:26 60 18 120/80 Status: improved Disposition: XFER SNF Condition: Improved Jennifer Jeff DO Nov 16, 2017 16:06
[2017-11-16 16:31] LABS: ANION GAP 3 mmol/L (5-15); BLOOD UREA NITROGEN 23 mg/dL (7-18); CALCIUM 8.2 MG/DL (8.5-10.1); CARBON DIOXIDE 29 MMOL/L (21-32); CHLORIDE 103 MMOL/L (98-107); CREATININE 0.8 MG/DL (0.55-1.30); POTASSIUM 4.6 MMOL/L (3.5-5.1); SODIUM 135 MMOL/L (136-145)
[2017-11-16 16:37] LABS: ALANINE AMINOTRANSFERASE 30 U/L (12-78); ALBUMIN 2.1 G/DL (3.4-5.0); ALBUMIN/GLOBULIN RATIO 0.3 (1.0-2.7); ALKALINE PHOSPHATASE 117 U/L (46-116); ASPARTATE AMINO TRANSFERASE 48 U/L (15-37); BILIRUBIN,TOTAL 0.2 MG/DL (0.2-1.0)
[2017-11-16 16:58] LABS: BASOPHILS % (AUTO) 0.4 % (0.0-2.0); EOSINOPHILS % (AUTO) 1.2 % (0.0-3.0); HEMATOCRIT 32.1 % (37.0-47.0); HEMOGLOBIN 10.3 G/DL (12.0-16.0); LYMPHOCYTES % (AUTO) 37.6 % (20.0-45.0); MEAN CORPUSCULAR VOLUME 80 FL (80-99); MONOCYTES % (AUTO) 10.6 % (1.0-10.0); NEUTROPHILS % (AUTO) 50.2 % (45.0-75.0); PLATELET COUNT 248 K/UL (150-450); RED BLOOD COUNT 4.04 M/UL (4.20-5.40); RED CELL DISTRIBUTION WIDTH 16.6 % (11.6-14.8); WHITE BLOOD COUNT 8.6 K/UL (4.8-10.8)
--- NOTE | 2017-11-16 17:32 | Diagnostic Imaging Report ---
Indication: Pain Technique: Noncontrast CT of the abdomen and pelvis utilizing automated exposure control. Axial, sagittal and coronal reformats presented. CT dose: Total DLP 855.91 mGycm; CTDI vol 15.23 mGy Comparison: None Findings: Please note that evaluation of the abdominal and pelvic viscera and vascular structures is limited without the use of intravenous and oral contrast. Within these limitations the following observations are made: Multiple rounded pulmonary nodules noted within the lung bases. The largest is noted within the medial right lower lobe and measures approximately 1 cm (series 5 image #23). Additional nodules are noted in the right middle lobe, right lower lobe and left lower lobe. The heart is enlarged. There are dense mitral annular calcifications. There are extensive coronary arterial calcifications. Calcified gallstones again noted within the gallbladder neck. 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 No focal liver lesion is appreciated on this noncontrast exam. Spleen and adrenal glands grossly unremarkable. The pancreas is mildly atrophic. A approximately 3 cm cyst is noted in the upper pole of the right kidney. There is no appreciable urinary tract stone or hydronephrosis. Air is noted within the bladder. There is bladder wall thickening with dense material noted within the bladder. The posterior aspect of the bladder is inseparable from portions of the uterus/vagina. The uterus is somewhat lobular in contour. A calcification is noted within the uterus. Adnexa are poorly evaluated. There is some small bilateral pelvic lymph nodes. Abdominal aorta is normal in caliber. There is no evidence of bowel obstruction. No free intraperitoneal air or ascites. There is colonic diverticulosis without diverticulitis. A gastrostomy tube is in place. There are degenerative changes of the spine and bilateral hips. No acute osseous abnormality is seen. No suspicious lytic or sclerotic bone lesion is identified. IMPRESSION: Limited exam without intravenous and oral contrast. Within these limitations: * Heterogeneous mass lesion involving the bladder, with portions of the posterior bladder inseparable from the lower uterine segment/cervix and vagina. Findings are highly concerning for malignancy, either bladder or gynecologic (vaginal/cervical/uterine) in etiology. Consider direct visualization with cystoscopy and/or gynecologic exam. Foci of air within the bladder can be related to recent catheterization or fistulous connection. * Small pelvic lymph nodes. * Multiple bilateral pulmonary nodules most concerning for metastatic disease given the above described mass * Cardiomegaly and coronary artery disease. * Diverticulosis without evidence of acute diverticulitis. * Gastrostomy tube in place. The CT scanner at [facility] is accredited by the [employer] and the scans are performed using protocols designed to limit radiation exposure to as low as reasonably achievable to attain images of sufficient resolution adequate for diagnostic evaluation.
[2017-11-16 18:26] VITALS: BP 108/79
[2017-11-16 19:12] VITALS: BP 134/88
[2017-11-16 20:10] VITALS: BP 128/88
[2017-11-16 20:15] VITALS: BP 134/88
== END 2017-11-16 20:15 ==
LOC: EDBD 15:30 → EMR 16:16
DX: N81.2 Incomplete uterovaginal prolapse (principal); I11.0 Hypertensive heart disease with heart failure; I50.9 Heart failure, unspecified; I48.91 Unspecified atrial fibrillation; M06.9 Rheumatoid arthritis, unspecified; E78.5 Hyperlipidemia, unspecified; F03.90 Unspecified dementia, unspecified severity, without behavioral disturbance, psychotic disturbance, mood disturbance, and anxiety; Z86.73 Personal history of transient ischemic attack (TIA), and cerebral infarction without residual deficits
CPT/HCPCS: 36415; 74176; 80053; 83690; 85025; 99284

== ENCOUNTER 2017-12-18 19:14 | Inpatient (IN) | payer MEDICARE, OTHER ==
[~2017-12-18] VITALS: Ht 170.2 cm; Wt 78.0 kg
[~2017-12-18 19:14] MED LIST changes: +CRANBERRY400 M1 GT
[2017-12-18] MEDS ORDERED: Acetaminophen 650mg/20.3ml GT ONE (20:30)
[2017-12-18] MEDS ORDERED: Tetanus/Diptheria/Pertussis Vaccine 0.5ml Syr IM ONE (20:30)
--- NOTE | 2017-12-18 20:31 | Diagnostic Imaging Report ---
EXAM: CT Head Without Intravenous Contrast CLINICAL HISTORY: PAIN TECHNIQUE: Axial computed tomography images of the head/brain without intravenous contrast. CTDI is 48 mGy and DLP is 516 mGy-cm. One or more of the following dose reduction techniques were used: automated exposure control, adjustment of the mA and/or kV according to patient size, use of iterative reconstruction technique. COMPARISON: No relevant prior studies available. FINDINGS: Brain: Chronic white matter changes and scattered chronic infarctions Ventricles: Unremarkable. No ventriculomegaly. Bones/joints: Unremarkable. No acute fracture. Soft tissues: Unremarkable. Sinuses: No fluid levels. Mastoid air cells: Unremarkable as visualized. No mastoid effusion. IMPRESSION: No acute findings.
[2017-12-18] MEDS ORDERED: Morphine Sulfate 2mg/ml Inj(IV/IM USE ONLY) IVP ONE (21:30)
[2017-12-18] MEDS ORDERED: dilTIAZem HCl 25mg/5ml Inj IVP ONE (21:45)
[2017-12-18 21:49] LABS: BASOPHILS % (AUTO) 0.7 % (0.0-2.0); EOSINOPHILS % (AUTO) 0.1 % (0.0-3.0); HEMATOCRIT 34.1 % (37.0-47.0); HEMOGLOBIN 10.4 G/DL (12.0-16.0); LYMPHOCYTES % (AUTO) 24.4 % (20.0-45.0); MEAN CORPUSCULAR VOLUME 80 FL (80-99); MONOCYTES % (AUTO) 8.9 % (1.0-10.0); NEUTROPHILS % (AUTO) 65.9 % (45.0-75.0); PLATELET COUNT 273 K/UL (150-450); RED BLOOD COUNT 4.26 M/UL (4.20-5.40); RED CELL DISTRIBUTION WIDTH 18.8 % (11.6-14.8); WHITE BLOOD COUNT 9.9 K/UL (4.8-10.8)
[2017-12-18 22:00] VITALS: BP 154/101
[2017-12-18 22:02] LABS: INR 1.1 (0.9-1.1)
[2017-12-18 22:05] LABS: ANION GAP 5 mmol/L (5-15); BLOOD UREA NITROGEN 28 mg/dL (7-18); CALCIUM 8.6 MG/DL (8.5-10.1); CARBON DIOXIDE 28 MMOL/L (21-32); CHLORIDE 105 MMOL/L (98-107); CREATININE 0.9 MG/DL (0.55-1.30); POTASSIUM 4.7 MMOL/L (3.5-5.1); SODIUM 138 MMOL/L (136-145)
[2017-12-18 22:10] LABS: ALANINE AMINOTRANSFERASE 33 U/L (12-78); ALBUMIN 2.2 G/DL (3.4-5.0); ALBUMIN/GLOBULIN RATIO 0.3 (1.0-2.7); ALKALINE PHOSPHATASE 139 U/L (46-116); ASPARTATE AMINO TRANSFERASE 48 U/L (15-37); BILIRUBIN,TOTAL 0.3 MG/DL (0.2-1.0)
[2017-12-18] MEDS ORDERED: Lidocaine 1% 10mg/ml/Epi 0.005mg/ml 30ml vial INJ ONE (22:15)
--- NOTE | 2017-12-18 22:29 | Emergency Room Report ---
History of Present Illness General Chief Complaint: Head Injury Source: Medical Record Present Illness HPI Patient is a 72-year-old female have presented after a witnessed fall. Patient was noted to have prior history of atrial fibrillation. Patient was noted to have fallen onto a nightstand. The patient was not noted to have lost consciousness. Patient had prior history of CVA as well as dementia. History is markedly limited by patient's metal status. Patient is G-tube dependent. Allergies: Coded Allergies: No Known Allergies (Unverified , 04/30/16) Patient History Past Medical History: see triage record Reviewed Nursing Documentation: PMH: Agreed; PSxH: Agreed Nursing Documentation-PMH Past Medical History: No History, Except For Hx Cardiac Problems: Yes - ESBL resistant, A-fib Hx Hypertension: Yes Hx Cancer: No Hx Gastrointestinal Problems: Yes - G-tube Hx Neurological Problems: Yes - mentia Hx Cerebrovascular Accident: Yes - TIA Hx Dementia: Yes Hx Seizures: Yes Review of Systems All Other Systems: limited - by mental status Physical Exam Vital Signs Date Time Temp Pulse Resp B/P (MAP) Pulse Ox O2 Delivery O2 Flow Rate FiO2 12/18/17 19:15 98.8 127 20 137/87 96 Room Air 98.8 General Appearance: alert, thin, Chronically Ill Eyes: bilateral eye PERRL ENT: normal pharynx Neck: limited range of motion Respiratory: chest non-tender, lungs clear Cardiovascular #1: normal peripheral pulses, irregularly irregular Gastrointestinal: non tender, soft, other - gut Musculoskeletal: decreased range of motion Neurologic: responsive, motor weakness, other - incomprehensible sounds Skin: laceration - stellate forehead laceration Procedures Laceration/Wound Repair Laceration/Wound Repair : Consent: Emergent Wound Location: face Wound's Depth, Shape: stellate Wound Length (cm): 2 Wound Explored: clean Betadine Prep?: Yes Anesthesia: Lidocaine w/ Epi Volume Anesthetic (ccs): 3 Wound Debrided: minimal Wound Repaired With: sutures Suture Size/Type: 5:0 - gut Number of Sutures: 3 Patient Tolerated: Well Complications: None Medical Decision Making Diagnostic Impression: Primary Impression: Atrial fibrillation with RVR Additional Impressions: Dementia Laceration of forehead Head contusion ER Course Patient presented after a fall. Differential diagnosis included was not limited to neck fracture, CVA, close head injury, syncopal episode, basilar ischemia. Because of complexity of patient's case laboratory testing and imaging studies were ordered. The EKG interpreted by me showed atrial flutter flutter with variable block with a rate of 117. Had the patient was given tetanus vaccine. CT the head read by radiology showed encephalomalacia with chronic white matter changes and scattered chronic infarctions. Wound is irrigated and sutured with absorbable suture. Patient given IV diltiazem with improvement in her heart rate. Patient was discussed with Dr. Barrington Wolf for Dr. Fernando for inpatient management due to covering physician. Labs Test 12/18/17 21:40 White Blood Count 9.9 K/UL (4.8-10.8) Red Blood Count 4.26 M/UL (4.20-5.40) Hemoglobin 10.4 G/DL (12.0-16.0) Hematocrit 34.1 % (37.0-47.0) Mean Corpuscular Volume 80 FL (80-99) Mean Corpuscular Hemoglobin 24.5 PG (27.0-31.0) Mean Corpuscular Hemoglobin Concent 30.6 G/DL (32.0-36.0) Red Cell Distribution Width 18.8 % (11.6-14.8) Platelet Count 273 K/UL (150-450) Mean Platelet Volume 6.9 FL (6.5-10.1) Neutrophils (%) (Auto) 65.9 % (45.0-75.0) Lymphocytes (%) (Auto) 24.4 % (20.0-45.0) Monocytes (%) (Auto) 8.9 % (1.0-10.0) Eosinophils (%) (Auto) 0.1 % (0.0-3.0) Basophils (%) (Auto) 0.7 % (0.0-2.0) Prothrombin Time 11.9 SEC (9.30-11.50) Prothromb Time International Ratio 1.1 (0.9-1.1) Activated Partial Thromboplast Time 31 SEC (23-33) Sodium Level 138 MMOL/L (136-145) Potassium Level 4.7 MMOL/L (3.5-5.1) Chloride Level 105 MMOL/L (98-107) Carbon Dioxide Level 28 MMOL/L (21-32) Anion Gap 5 mmol/L (5-15) Blood Urea Nitrogen 28 mg/dL (7-18) Creatinine 0.9 MG/DL (0.55-1.30) Estimat Glomerular Filtration Rate mL/min (>60) Glucose Level 124 MG/DL (74-106) Calcium Level 8.6 MG/DL (8.5-10.1) Total Bilirubin 0.3 MG/DL (0.2-1.0) Aspartate Amino Transf (AST/SGOT) 48 U/L (15-37) Alanine Aminotransferase (ALT/SGPT) 33 U/L (12-78) Alkaline Phosphatase 139 U/L (46-116) Total Protein 9.0 G/DL (6.4-8.2) Albumin 2.2 G/DL (3.4-5.0) Globulin 6.8 g/dL Albumin/Globulin Ratio 0.3 (1.0-2.7) EKG Diagnostic Results Rate: tachycardiac Rhythm: other - afib ST Segments: no acute changes Last Vital Signs Date Time Temp Pulse Resp B/P (MAP) Pulse Ox O2 Delivery O2 Flow Rate FiO2 12/18/17 22:00 99.2 84 20 154/101 100 Room Air 99.2 Status: improved Disposition: ADMITTED INPATIENT Condition: Serious Referrals: NON PHYSICIAN (PCP) Kevin Gomez MD Dec 18, 2017 22:29
[2017-12-18 22:42] VITALS: BP 109/72
[2017-12-19] VITALS: BP 126/83
--- NOTE | 2017-12-19 00:01 | Diagnostic Imaging Report ---
EXAM: XR Chest, 1 View CLINICAL HISTORY: SOB TECHNIQUE: Frontal view of the chest. COMPARISON: No relevant prior studies available. FINDINGS: Lungs: Unremarkable. No consolidation. Pleural space: Unremarkable. No pneumothorax. Heart: Unremarkable. No cardiomegaly. Mediastinum: Hiatal hernia appears to be present. Bones/joints: Unremarkable. IMPRESSION: No acute findings.
[2017-12-19] MEDS: D5 1/2NS 1,000 ML IV SCH ×2 (02:45→16:23)
[2017-12-19 04:00] VITALS: BP 128/82
[2017-12-19 05:29] LABS: BASOPHILS % (AUTO) 0.7 % (0.0-2.0); EOSINOPHILS % (AUTO) 0.3 % (0.0-3.0); LYMPHOCYTES % (AUTO) 36.2 % (20.0-45.0); MEAN CORPUSCULAR VOLUME 81 FL (80-99); MONOCYTES % (AUTO) 10.9 % (1.0-10.0); NEUTROPHILS % (AUTO) 51.8 % (45.0-75.0); PLATELET COUNT 231 K/UL (150-450); RED BLOOD COUNT 3.97 M/UL (4.20-5.40); RED CELL DISTRIBUTION WIDTH 18.7 % (11.6-14.8); WHITE BLOOD COUNT 9.2 K/UL (4.8-10.8)
[2017-12-19 06:06] LABS: ANION GAP 6 mmol/L (5-15); BLOOD UREA NITROGEN 27 mg/dL (7-18); CALCIUM 8.7 MG/DL (8.5-10.1); CARBON DIOXIDE 30 MMOL/L (21-32); CHLORIDE 106 MMOL/L (98-107); CREATININE 0.8 MG/DL (0.55-1.30); POTASSIUM 5.3 MMOL/L (3.5-5.1); SODIUM 142 MMOL/L (136-145)
[2017-12-19 08:00] VITALS: BP 134/66
[2017-12-19] MEDS: Metoprolol Tartrate 50mg tab ORAL SCH ×2 (08:45→20:45)
[2017-12-19] MEDS: Heparin 5000 units/ml inj SUBQ SCH ×2 (08:46→20:46)
[2017-12-19 12:00] VITALS: BP 114/63
--- NOTE | 2017-12-19 12:19 | Diagnostic Imaging Report ---
EXAM: CT Cervical Spine Without Intravenous Contrast CLINICAL HISTORY: PAIN TECHNIQUE: Axial computed tomography images of the cervical spine without intravenous contrast. CTDI is 16.82 mGy and DLP is 342 mGy-cm. One or more of the following dose reduction techniques were used: automated exposure control, adjustment of the mA and/or kV according to patient size, use of iterative reconstruction technique. COMPARISON: No relevant prior studies available. FINDINGS: Vertebrae: Motion degradation. No definite fracture or malalignment. Discs/spinal canal/neural foramina: Posterior vertebral calcification C4 and C5 resulting in severe central canal narrowing at C3-4 and C4-5 with central protrusion of calcification into the central canal and effacement of the thecal sac, worse on the right. Moderate central canal narrowing at C5-6 with central calcific protrusion. Moderate to severe bilateral neural foraminal narrowing C3-C5. Soft tissues: Unremarkable. Vasculature: Atherosclerotic vascular disease. Lymph nodes: Small mediastinal and supraclavicular lymph nodes. Thyroid: Bilateral thyroid nodules, largest 8.9 mm. Lung apices: Bilateral lung nodules, largest 7.9 mm on the left lung and 14 mm right posterior lung. Worrisome for metastases. IMPRESSION: 1. Motion degradation. No definite fracture or malalignment. 2. Posterior vertebral calcification C4 and C5 resulting in severe central canal narrowing at C3-4 and C4-5 with central protrusion of calcification into the central canal and effacement of the thecal sac, worse on the right. 3. Moderate to severe bilateral neural foraminal narrowing C3-C5. 4. Bilateral thyroid nodules, largest 8.9 mm. . Consider thyroid ultrasound. 5. Bilateral lung nodules, largest 7.9 mm on the left lung and 14 mm right posterior lung. Worrisome for metastases.
--- NOTE | 2017-12-19 14:11 | History and Physical ---
History of Present Illness General Date patient seen: Dec 19, 2017 Reason for Hospitalization: Head Injury Present Illness HPI Patient is a 72-year-old female w/ Hx a fib, CVA, Dementia, G tube who presented after a witnessed fall. Patient was noted to have fallen onto a nightstand. The patient was not noted to have lost consciousness. ER Course Patient presented after a fall. Differential diagnosis included was not limited to neck fracture, CVA, close head injury, syncopal episode, basilar ischemia. Because of complexity of patient's case laboratory testing and imaging studies were ordered. The EKG interpreted by me showed atrial flutter flutter with variable block with a rate of 117. Had the patient was given tetanus vaccine. CT the head read by radiology showed encephalomalacia with chronic white matter changes and scattered chronic infarctions. Wound is irrigated and sutured with absorbable suture. Patient given IV diltiazem with improvement in her heart rate. Patient was discussed with Dr. Barrington Wolf for Dr. Fernando for inpatient management due to covering physician. Pt has remained afebrile and HDS w/ good rate control after her home metoprolol re-started. Allergies: Coded Allergies: No Known Allergies (Unverified , 04/30/16) Medication History Scheduled Ampicillin (Ampicillin Trihydrate), 500 MG PO QID Aspirin* (Aspirin*), 81 MG NG DAILY Atorvastatin Calcium* (Lipitor*), 80 MG ORAL BEDTIME, (Reported) Folic Acid* (Folic Acid*), 1 MG ORAL DAILY, (Reported) Hydralazine Hcl* (Hydralazine Hcl*), 10 MG ORAL EVERY 6 HOURS, (Reported) Levetiracetam (Levetiracetam), 750 MG NG Q12HR Levofloxacin* (Levaquin*), 500 MG ORAL DAILY Metoprolol Tartrate* (Metoprolol Tartrate*), 50 MG ORAL EVERY 12 HOURS, ( Reported) Metoprolol Tartrate* (Metoprolol Tartrate*), 50 MG ORAL Q12HR Mirtazapine* (Remeron*), 15 MG ORAL BEDTIME, (Reported) Nifedipine (Nifedipine*), 30 MG ORAL EVERY 12 HOURS, (Reported) Nifedipine Xl* (Procardia Xl*), 30 MG ORAL Q12HR Omeprazole (Omeprazole), 20 MG ORAL DAILY, (Reported) Paroxetine Hcl* (Paxil*), 20 MG ORAL DAILY, (Reported) Sulfasalazine* (Azulfidine*), 500 MG ORAL BEFORE MEALS, (Reported) Tamsulosin HCl (Flomax), 0.4 MG ORAL DAILY Trazodone* (Trazodone*), 12.5 MG ORAL BEDTIME, (Reported) Valsartan (Diovan), 80 MG ORAL DAILY, (Reported) Scheduled PRN Acetaminophen* (Acetaminophen 325MG Tablet*), 650 MG ORAL Q4H PRN for For Pain, (Reported) Miscellaneous Medications Cranberry Fruit (Cranberry), 400 MG GT, (Reported) Methotrexate Sodium* (Methotrexate*), 2.5 MG PO, (Reported) Patient History History Provided By: Patient, Medical Record Healthcare decision maker Isiah Marquez, son Resuscitation status Full Code Advanced Directive on File Family History Family History: Patient reports no known family medical history. Review of Systems Constitutional: Denies: no symptoms, see HPI, chills, sweats, fever, malaise, weakness, other Eye: Denies: no symptoms, see HPI, eye pain, blurred vision, tearing, double vision, nose pain, nose congestion, acuity changes, discharge, other ENT: Denies: no symptoms, see HPI, ear pain, ear discharge, nose pain, nose congestion, throat pain, throat swelling, mouth pain, hearing loss, nasal discharge, other Respiratory: Denies: no symptoms, see HPI, cough, orthopnea, shortness of breath, stridor, wheezing, DAWSON, sputum, other Gastrointestinal: Denies: no symptoms, see HPI, abdominal pain, constipation, diarrhea, nausea, vomiting, melena, hematemesis, other Genitourinary: Denies: no symptoms, see HPI, discharge, dysuria, frequency, hematuria, pain, retention, incontinence, urgency, vag bleed/dc, other Musculoskeletal: Denies: no symptoms, see HPI, back pain, gout, joint pain, joint swelling, muscle pain, muscle stiffness, other Skin: Denies: no symptoms, see HPI, rash, change in color, change in hair/nails , dryness, lesions, other Psychiatric: Denies: no symptoms, see HPI, prior hx, anxiety, depressed feelings, emotional problems, SI, HI, hallucinations, other Neurological: Denies: no symptoms, see HPI, headache, numbness, paresthesia, seizure, tingling, tremors, focal weakness, syncope, dizziness, other Endocrine: Denies: no symptoms, see HPI, excessive sweating, flushing, intolerance to temperature, increased thirst, increased urine, unexplained weight loss, other Physical Exam General Appearance: no apparent distress HEENT: normocephalic, atraumatic, PERRL Neck: non-tender, supple, normal inspection Respiratory/Chest: chest wall non-tender, lungs clear, no respiratory distress , no accessory muscle use Cardiovascular/Chest: normal peripheral pulses, no gallop/murmur, no JVD, irregularly irregular Abdomen: non tender, soft, no organomegaly, no mass Extremities: normal inspection, no edema, no cyanosis Neurologic: field counsel II-XII grossly normal Last 24 Hour Vital Signs Date Time Temp Pulse Resp B/P (MAP) Pulse Ox O2 Delivery O2 Flow Rate FiO2 12/19/17 12:00 87 12/19/17 12:00 97.8 92 20 114/63 (80) 98 97.8 12/19/17 09:00 Room Air 12/19/17 08:45 72 134/66 12/19/17 08:00 97.7 72 18 134/66 (88) 99 97.7 12/19/17 08:00 93 12/19/17 04:00 88 12/19/17 04:00 97.9 60 18 128/82 (97) 98 97.9 12/19/17 00:34 Room Air 12/19/17 00:00 87 12/19/17 00:00 98.2 64 18 126/83 (97) 98 98.2 12/18/17 23:50 99.0 80 11 109/72 100 Room Air 99.0 12/18/17 22:42 99.0 80 11 109/72 100 Room Air 99.0 12/18/17 22:16 99.2 12/18/17 22:00 99.2 84 20 154/101 100 Room Air 99.2 12/18/17 21:55 144 154/101 12/18/17 21:46 98.8 12/18/17 21:37 99.2 12/18/17 21:07 98.8 12/18/17 19:15 98.8 127 20 137/87 96 Room Air 98.8 Intake and Output 12/18/17 12/19/17 19:00 07:00 Intake Total 60 ml Balance 60 ml Intake Free Water 60 ml # Voids 5 # Bowel Movements 3 Laboratory Tests Test 12/18/17 21:40 12/19/17 04:50 White Blood Count 9.9 K/UL (4.8-10.8) 9.2 K/UL (4.8-10.8) Red Blood Count 4.26 M/UL (4.20-5.40) 3.97 M/UL (4.20-5.40) L Hemoglobin 10.4 G/DL (12.0-16.0) L 10.0 G/DL (12.0-16.0) L Hematocrit 34.1 % (37.0-47.0) L 32.0 % (37.0-47.0) L Mean Corpuscular Volume 80 FL (80-99) 81 FL (80-99) Mean Corpuscular Hemoglobin 24.5 PG (27.0-31.0) L 25.2 PG (27.0-31.0) L Mean Corpuscular Hemoglobin Concent 30.6 G/DL (32.0-36.0) L 31.3 G/DL (32.0-36.0) L Red Cell Distribution Width 18.8 % (11.6-14.8) H 18.7 % (11.6-14.8) H Platelet Count 273 K/UL (150-450) 231 K/UL (150-450) Mean Platelet Volume 6.9 FL (6.5-10.1) 6.9 FL (6.5-10.1) Neutrophils (%) (Auto) 65.9 % (45.0-75.0) 51.8 % (45.0-75.0) Lymphocytes (%) (Auto) 24.4 % (20.0-45.0) 36.2 % (20.0-45.0) Monocytes (%) (Auto) 8.9 % (1.0-10.0) 10.9 % (1.0-10.0) H Eosinophils (%) (Auto) 0.1 % (0.0-3.0) 0.3 % (0.0-3.0) Basophils (%) (Auto) 0.7 % (0.0-2.0) 0.7 % (0.0-2.0) Prothrombin Time 11.9 SEC (9.30-11.50) H Prothromb Time International Ratio 1.1 (0.9-1.1) Activated Partial Thromboplast Time 31 SEC (23-33) Sodium Level 138 MMOL/L (136-145) 142 MMOL/L (136-145) Potassium Level 4.7 MMOL/L (3.5-5.1) 5.3 MMOL/L (3.5-5.1) H Chloride Level 105 MMOL/L (98-107) 106 MMOL/L (98-107) Carbon Dioxide Level 28 MMOL/L (21-32) 30 MMOL/L (21-32) Anion Gap 5 mmol/L (5-15) 6 mmol/L (5-15) Blood Urea Nitrogen 28 mg/dL (7-18) H 27 mg/dL (7-18) H Creatinine 0.9 MG/DL (0.55-1.30) 0.8 MG/DL (0.55-1.30) Estimat Glomerular Filtration Rate mL/min (>60) mL/min (>60) Glucose Level 124 MG/DL (74-106) H 98 MG/DL (74-106) Calcium Level 8.6 MG/DL (8.5-10.1) 8.7 MG/DL (8.5-10.1) Total Bilirubin 0.3 MG/DL (0.2-1.0) Aspartate Amino Transf (AST/SGOT) 48 U/L (15-37) H Alanine Aminotransferase (ALT/SGPT) 33 U/L (12-78) Alkaline Phosphatase 139 U/L (46-116) H Total Protein 9.0 G/DL (6.4-8.2) H Albumin 2.2 G/DL (3.4-5.0) L Globulin 6.8 g/dL Albumin/Globulin Ratio 0.3 (1.0-2.7) L Magnesium Level 2.0 MG/DL (1.8-2.4) Troponin I 0.006 ng/mL (0.000-0.056) Height (Feet): 5 Height (Inches): 7.00 Weight (Pounds): 146 Medications Current Medications Medications (Trade) Dose Ordered Sig/Renea Route PRN Reason Start Time Stop Time Status Last Admin Dose Admin Dextrose/Sodium Chloride 1,000 ml @ 75 mls/hr [id number] IV 12/19/17 02:45 01/18/18 02:44 12/19/17 02:45 Heparin Sodium (Porcine) (Heparin 5000 units/ml) 5,000 units EVERY 12 HOURS SUBQ 12/19/17 09:00 01/18/18 08:59 12/19/17 08:46 Metoprolol Tartrate (Lopressor) 50 mg Q12HR ORAL 12/19/17 09:00 01/18/18 08:59 12/19/17 08:45 Assessment/Plan Problem List: (1) Atrial fibrillation with RVR ICD Codes: I48.91 - Unspecified atrial fibrillation SNOMED: 010121006058559 (2) Altered mental status ICD Codes: R41.82 - Altered mental status, unspecified SNOMED: 571669188 (3) S/P percutaneous endoscopic gastrostomy (PEG) tube placement ICD Codes: Z93.1 - Gastrostomy status SNOMED: 015001035 (4) Chronic a-fib ICD Codes: I48.2 - Chronic atrial fibrillation SNOMED: 240680782 (5) Dementia ICD Codes: F03.90 - Unspecified dementia without behavioral disturbance SNOMED: 52449887 (6) CHF (congestive heart failure) ICD Codes: I50.9 - Heart failure, unspecified SNOMED: 54094867 (7) HTN (hypertension) ICD Codes: I10 - Essential (primary) hypertension SNOMED: 65652108 Status: stable Assessment/Plan - 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 Time of note may not reflect time of clinical encounter. Sanjay Dillard MD Dec 19, 2017 14:11
[2017-12-19 16:00] VITALS: BP 127/89
--- NOTE | 2017-12-19 17:29 | Consultation ---
History of Present Illness General Date patient seen: Dec 19, 2017 Time patient seen: 17:26 Chief Complaint: Head Injury Present Illness HPI Patient came in for a fall, suffered head trauma. CT with chronic CVA, no acute , CXR clear, labs normal. Cardiology consulted for AFIB/Flutter RVR Allergies: Coded Allergies: No Known Allergies (Unverified , 04/30/16) Medication History Scheduled Ampicillin (Ampicillin Trihydrate), 500 MG PO QID Aspirin* (Aspirin*), 81 MG NG DAILY Atorvastatin Calcium* (Lipitor*), 80 MG ORAL BEDTIME, (Reported) Folic Acid* (Folic Acid*), 1 MG ORAL DAILY, (Reported) Hydralazine Hcl* (Hydralazine Hcl*), 10 MG ORAL EVERY 6 HOURS, (Reported) Levetiracetam (Levetiracetam), 750 MG NG Q12HR Levofloxacin* (Levaquin*), 500 MG ORAL DAILY Metoprolol Tartrate* (Metoprolol Tartrate*), 50 MG ORAL EVERY 12 HOURS, ( Reported) Metoprolol Tartrate* (Metoprolol Tartrate*), 50 MG ORAL Q12HR Mirtazapine* (Remeron*), 15 MG ORAL BEDTIME, (Reported) Nifedipine (Nifedipine*), 30 MG ORAL EVERY 12 HOURS, (Reported) Nifedipine Xl* (Procardia Xl*), 30 MG ORAL Q12HR Omeprazole (Omeprazole), 20 MG ORAL DAILY, (Reported) Paroxetine Hcl* (Paxil*), 20 MG ORAL DAILY, (Reported) Sulfasalazine* (Azulfidine*), 500 MG ORAL BEFORE MEALS, (Reported) Tamsulosin HCl (Flomax), 0.4 MG ORAL DAILY Trazodone* (Trazodone*), 12.5 MG ORAL BEDTIME, (Reported) Valsartan (Diovan), 80 MG ORAL DAILY, (Reported) Scheduled PRN Acetaminophen* (Acetaminophen 325MG Tablet*), 650 MG ORAL Q4H PRN for For Pain, (Reported) Miscellaneous Medications Cranberry Fruit (Cranberry), 400 MG GT, (Reported) Methotrexate Sodium* (Methotrexate*), 2.5 MG PO, (Reported) Patient History Healthcare decision maker Isiah Marquez, son Resuscitation status Full Code Advanced Directive on File Review of Systems Constitutional: Reports: no symptoms Eye: Reports: no symptoms ENT: Reports: no symptoms Respiratory: Reports: no symptoms Cardiovascular: Reports: no symptoms Gastrointestinal: Reports: no symptoms Genitourinary: Reports: no symptoms Musculoskeletal: Reports: no symptoms Skin: Reports: no symptoms Psychiatric: Reports: no symptoms Neurological: Reports: syncope Endocrine: Reports: no symptoms Hematologic/Lymphatic: Reports: no symptoms Physical Exam General Appearance: no apparent distress Lines, tubes and drains: peripheral HEENT: normocephalic Neck: non-tender Respiratory/Chest: chest wall non-tender Cardiovascular/Chest: normal peripheral pulses, tachycardia, arrhythmia Abdomen: normal bowel sounds Extremities: normal range of motion Neurologic: motor weakness Lymphatic: anterior cervical Last 24 Hour Vital Signs Date Time Temp Pulse Resp B/P (MAP) Pulse Ox O2 Delivery O2 Flow Rate FiO2 12/19/17 16:00 102 12/19/17 16:00 97.5 96 18 127/89 (102) 96 97.5 12/19/17 12:00 87 12/19/17 12:00 97.8 92 20 114/63 (80) 98 97.8 12/19/17 09:00 Room Air 12/19/17 08:45 72 134/66 12/19/17 08:00 97.7 72 18 134/66 (88) 99 97.7 12/19/17 08:00 93 12/19/17 04:00 88 12/19/17 04:00 97.9 60 18 128/82 (97) 98 97.9 12/19/17 00:34 Room Air 12/19/17 00:00 87 12/19/17 00:00 98.2 64 18 126/83 (97) 98 98.2 12/18/17 23:50 99.0 80 11 109/72 100 Room Air 99.0 12/18/17 22:42 99.0 80 11 109/72 100 Room Air 99.0 12/18/17 22:16 99.2 12/18/17 22:00 99.2 84 20 154/101 100 Room Air 99.2 12/18/17 21:55 144 154/101 12/18/17 21:46 98.8 12/18/17 21:37 99.2 12/18/17 21:07 98.8 12/18/17 19:15 98.8 127 20 137/87 96 Room Air 98.8 Intake and Output 12/18/17 12/19/17 19:00 07:00 Intake Total 60 ml Balance 60 ml Intake Free Water 60 ml # Voids 5 # Bowel Movements 3 Laboratory Tests Test 12/18/17 21:40 12/19/17 04:50 White Blood Count 9.9 K/UL (4.8-10.8) 9.2 K/UL (4.8-10.8) Red Blood Count 4.26 M/UL (4.20-5.40) 3.97 M/UL (4.20-5.40) L Hemoglobin 10.4 G/DL (12.0-16.0) L 10.0 G/DL (12.0-16.0) L Hematocrit 34.1 % (37.0-47.0) L 32.0 % (37.0-47.0) L Mean Corpuscular Volume 80 FL (80-99) 81 FL (80-99) Mean Corpuscular Hemoglobin 24.5 PG (27.0-31.0) L 25.2 PG (27.0-31.0) L Mean Corpuscular Hemoglobin Concent 30.6 G/DL (32.0-36.0) L 31.3 G/DL (32.0-36.0) L Red Cell Distribution Width 18.8 % (11.6-14.8) H 18.7 % (11.6-14.8) H Platelet Count 273 K/UL (150-450) 231 K/UL (150-450) Mean Platelet Volume 6.9 FL (6.5-10.1) 6.9 FL (6.5-10.1) Neutrophils (%) (Auto) 65.9 % (45.0-75.0) 51.8 % (45.0-75.0) Lymphocytes (%) (Auto) 24.4 % (20.0-45.0) 36.2 % (20.0-45.0) Monocytes (%) (Auto) 8.9 % (1.0-10.0) 10.9 % (1.0-10.0) H Eosinophils (%) (Auto) 0.1 % (0.0-3.0) 0.3 % (0.0-3.0) Basophils (%) (Auto) 0.7 % (0.0-2.0) 0.7 % (0.0-2.0) Prothrombin Time 11.9 SEC (9.30-11.50) H Prothromb Time International Ratio 1.1 (0.9-1.1) Activated Partial Thromboplast Time 31 SEC (23-33) Sodium Level 138 MMOL/L (136-145) 142 MMOL/L (136-145) Potassium Level 4.7 MMOL/L (3.5-5.1) 5.3 MMOL/L (3.5-5.1) H Chloride Level 105 MMOL/L (98-107) 106 MMOL/L (98-107) Carbon Dioxide Level 28 MMOL/L (21-32) 30 MMOL/L (21-32) Anion Gap 5 mmol/L (5-15) 6 mmol/L (5-15) Blood Urea Nitrogen 28 mg/dL (7-18) H 27 mg/dL (7-18) H Creatinine 0.9 MG/DL (0.55-1.30) 0.8 MG/DL (0.55-1.30) Estimat Glomerular Filtration Rate mL/min (>60) mL/min (>60) Glucose Level 124 MG/DL (74-106) H 98 MG/DL (74-106) Calcium Level 8.6 MG/DL (8.5-10.1) 8.7 MG/DL (8.5-10.1) Total Bilirubin 0.3 MG/DL (0.2-1.0) Aspartate Amino Transf (AST/SGOT) 48 U/L (15-37) H Alanine Aminotransferase (ALT/SGPT) 33 U/L (12-78) Alkaline Phosphatase 139 U/L (46-116) H Total Protein 9.0 G/DL (6.4-8.2) H Albumin 2.2 G/DL (3.4-5.0) L Globulin 6.8 g/dL Albumin/Globulin Ratio 0.3 (1.0-2.7) L Magnesium Level 2.0 MG/DL (1.8-2.4) Troponin I 0.006 ng/mL (0.000-0.056) Height (Feet): 5 Height (Inches): 7.00 Weight (Pounds): 146 Medications Current Medications Medications (Trade) Dose Ordered Sig/Renea Route PRN Reason Start Time Stop Time Status Last Admin Dose Admin Aspirin (ASA) 81 mg DAILY NG 12/20/17 09:00 01/19/18 08:59 Atorvastatin Calcium (Lipitor) 80 mg BEDTIME ORAL 12/19/17 21:00 01/18/18 20:59 Dextrose/Sodium Chloride 1,000 ml @ 75 mls/hr [id number] IV 12/19/17 02:45 01/18/18 02:44 12/19/17 16:23 Folic Acid (Folate) 1 mg DAILY ORAL 12/20/17 09:00 01/19/18 08:59 Heparin Sodium (Porcine) (Heparin 5000 units/ml) 5,000 units EVERY 12 HOURS SUBQ 12/19/17 09:00 01/18/18 08:59 12/19/17 08:46 Levetiracetam (Keppra) 750 mg Q12HR NG 12/19/17 21:00 01/18/18 20:59 Metoprolol Tartrate (Lopressor) 50 mg Q12HR ORAL 12/19/17 09:00 01/18/18 08:59 12/19/17 08:45 Mirtazapine (Remeron) 15 mg BEDTIME ORAL 12/19/17 21:00 01/18/18 20:59 Tamsulosin HCl (Flomax) 0.4 mg DAILY ORAL 12/20/17 09:00 01/19/18 08:59 Assessment/Plan Status: stable Assessment/Plan Assessment/Plan Problem List: (1) Atrial fibrillation with RVR (2) Altered mental status (3) S/P percutaneous endoscopic gastrostomy (PEG) tube placement (4) Chronic a-fib (5) Dementia (6) CHF (congestive heart failure) (7) HTN (hypertension) -aspirin due to fall risk -Statin -Rate control with metoprolol -echocardiogram -no indication for cardioversion -monitor BP, slowly introduce medications as needed, concern for polypharmacy and hypotension as culprit given 4 anti hypertensive medications -supportive care Nikolai Brooks M.D. Dec 19, 2017 17:29
[2017-12-19] MEDS ORDERED: Sterile Water Irrig 1000ml IRRIG ONE (17:35)
[2017-12-19] MEDS: Morphine Sulfate 2mg/ml Inj(IV/IM USE ONLY) IVP PRN (18:48)
[2017-12-19] MEDS ORDERED: Albuterol/Ipratropium 3ml neb HHN PRN (19:45)
[2017-12-19 20:00] VITALS: BP 131/64
[2017-12-19] MEDS: Atorvastatin 80mg tab ORAL SCH (20:43)
[2017-12-20] VITALS: BP 123/71
[2017-12-20] MEDS: Morphine Sulfate 2mg/ml Inj(IV/IM USE ONLY) IVP PRN ×3 (03:40→21:06)
[2017-12-20 04:00] VITALS: BP 133/69
[2017-12-20] MEDS: D5 1/2NS 1,000 ML IV SCH ×2 (05:25→17:50)
[2017-12-20 07:35] LABS: BASOPHILS % (AUTO) 1.5 % (0.0-2.0); EOSINOPHILS % (AUTO) 0.3 % (0.0-3.0); HEMATOCRIT 31.6 % (37.0-47.0); HEMOGLOBIN 9.9 G/DL (12.0-16.0); MEAN CORPUSCULAR VOLUME 80 FL (80-99); MONOCYTES % (AUTO) 13.5 % (1.0-10.0); NEUTROPHILS % (AUTO) 51.8 % (45.0-75.0); PLATELET COUNT 244 K/UL (150-450); RED BLOOD COUNT 3.94 M/UL (4.20-5.40); RED CELL DISTRIBUTION WIDTH 18.4 % (11.6-14.8); WHITE BLOOD COUNT 8.3 K/UL (4.8-10.8)
[2017-12-20 07:46] LABS: ANION GAP 8 mmol/L (5-15); BLOOD UREA NITROGEN 29 mg/dL (7-18); CALCIUM 8.3 MG/DL (8.5-10.1); CARBON DIOXIDE 27 MMOL/L (21-32); CHLORIDE 105 MMOL/L (98-107); POTASSIUM 4.6 MMOL/L (3.5-5.1); SODIUM 140 MMOL/L (136-145)
[2017-12-20 08:00] VITALS: BP 137/78
[2017-12-20] MEDS: Tamsulosin 0.4mg cap ORAL SCH (08:29)
[2017-12-20] MEDS: Aspirin Baby 81mg NG SCH (08:29)
[2017-12-20] MEDS: Metoprolol Tartrate 50mg tab ORAL SCH ×2 (08:30→20:45)
[2017-12-20] MEDS: Heparin 5000 units/ml inj SUBQ SCH ×2 (08:31→20:45)
[2017-12-20 12:00] VITALS: BP 129/82
--- NOTE | 2017-12-20 13:44 | Cardiology Progress Note ---
Assessment/Plan Status: stable, progressing Assessment/Plan Assessment/Plan Problem List: (1) Atrial fibrillation with RVR (2) Altered mental status (3) S/P percutaneous endoscopic gastrostomy (PEG) tube placement (4) Chronic a-fib (5) Dementia (6) CHF (congestive heart failure) (7) HTN (hypertension) -aspirin due to fall risk -Statin -Rate control with metoprolol -echocardiogram -no indication for cardioversion -Rhythm was atrial flutter vs atrial tachycardia, no anticoagulation needed -monitor BP, slowly introduce medications as needed, concern for polypharmacy and hypotension as culprit given 4 anti hypertensive medications -supportive care Subjective Cardiovascular: Reports: no symptoms Respiratory: Reports: no symptoms Gastrointestinal/Abdominal: Reports: no symptoms Genitourinary: Reports: no symptoms Subjective patient is on bed asleep. no signs of acute distress noted. patient is stable, remains SR all throughout the night Heart rate controlled, vitals stable Objective Last 24 Hour Vital Signs Date Time Temp Pulse Resp B/P (MAP) Pulse Ox O2 Delivery O2 Flow Rate FiO2 12/20/17 12:00 96.2 80 18 129/82 (98) 98 96.2 12/20/17 12:00 84 12/20/17 09:00 Room Air 12/20/17 08:30 100 137/78 12/20/17 08:00 0 12/20/17 08:00 87 12/20/17 08:00 97.0 77 18 137/78 (97) 98 97.0 12/20/17 04:00 98.0 64 20 133/69 (90) 98 98.0 12/20/17 04:00 117 12/20/17 00:00 124 12/20/17 00:00 96.6 76 19 123/71 (88) 94 96.6 12/19/17 21:00 Room Air 12/19/17 20:45 165 131/64 12/19/17 20:13 96 18 Room Air 12/19/17 20:11 97 Room Air 12/19/17 20:00 97.2 89 22 131/64 (86) 95 97.2 12/19/17 20:00 172 12/19/17 16:00 102 12/19/17 16:00 97.5 96 18 127/89 (102) 96 97.5 General Appearance: no apparent distress EENT: PERRL/EOMI Neck: non-tender Rhythm: NSR Cardiovascular: normal peripheral pulses Respiratory/Chest: chest wall non-tender Abdomen: normal bowel sounds Extremities: normal range of motion Neurologic: poiser balance II-XII grossly normal Intake and Output 12/19/17 12/20/17 19:00 07:00 Intake Total 1590 ml 75 ml Balance 1590 ml 75 ml Intake Free Water 120 ml IV Total 750 ml 75 ml Tube Feeding 720 ml # Voids 3 2 # Bowel Movements 1 2 Laboratory Tests Test 12/19/17 20:15 12/20/17 06:40 12/20/17 11:30 Troponin I 0.005 ng/mL (0.000-0.056) White Blood Count 8.3 K/UL (4.8-10.8) Red Blood Count 3.94 M/UL (4.20-5.40) L Hemoglobin 9.9 G/DL (12.0-16.0) L Hematocrit 31.6 % (37.0-47.0) L Mean Corpuscular Volume 80 FL (80-99) Mean Corpuscular Hemoglobin 25.2 PG (27.0-31.0) L Mean Corpuscular Hemoglobin Concent 31.4 G/DL (32.0-36.0) L Red Cell Distribution Width 18.4 % (11.6-14.8) H Platelet Count 244 K/UL (150-450) Mean Platelet Volume 7.2 FL (6.5-10.1) Neutrophils (%) (Auto) 51.8 % (45.0-75.0) Lymphocytes (%) (Auto) 33.0 % (20.0-45.0) Monocytes (%) (Auto) 13.5 % (1.0-10.0) H Eosinophils (%) (Auto) 0.3 % (0.0-3.0) Basophils (%) (Auto) 1.5 % (0.0-2.0) Sodium Level 140 MMOL/L (136-145) Potassium Level 4.6 MMOL/L (3.5-5.1) Chloride Level 105 MMOL/L (98-107) Carbon Dioxide Level 27 MMOL/L (21-32) Anion Gap 8 mmol/L (5-15) Blood Urea Nitrogen 29 mg/dL (7-18) H Creatinine 1.0 MG/DL (0.55-1.30) Estimat Glomerular Filtration Rate mL/min (>60) Glucose Level 150 MG/DL (74-106) H Calcium Level 8.3 MG/DL (8.5-10.1) L Chlamydia trachomatis RNA Pending Microbiology Date/Time Source Procedure Growth Status 12/19/17 17:50 Vaginal Gram Stain - Final Resulted 12/19/17 17:50 Vaginal Neisseria gonorrhoeae Culture Pending Resulted Nikolai Brooks M.D. Dec 20, 2017 13:44
[2017-12-20 16:00] VITALS: BP 133/66
--- NOTE | 2017-12-20 17:08 | General Progress Note ---
Assessment/Plan Problem List: (1) Atrial fibrillation with RVR ICD Codes: I48.91 - Unspecified atrial fibrillation SNOMED: 697161832702061 (2) Altered mental status ICD Codes: R41.82 - Altered mental status, unspecified SNOMED: 996772058 (3) S/P percutaneous endoscopic gastrostomy (PEG) tube placement ICD Codes: Z93.1 - Gastrostomy status SNOMED: 326203873 (4) Chronic a-fib ICD Codes: I48.2 - Chronic atrial fibrillation SNOMED: 397322190 (5) Dementia ICD Codes: F03.90 - Unspecified dementia without behavioral disturbance SNOMED: 55744582 (6) CHF (congestive heart failure) ICD Codes: I50.9 - Heart failure, unspecified SNOMED: 86101230 (7) HTN (hypertension) ICD Codes: I10 - Essential (primary) hypertension SNOMED: 20177236 Assessment/Plan - appreciate cards recs and mgt - 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 Time of note may not reflect time of clinical encounter. Subjective Date patient seen: Dec 20, 2017 ROS Limited/Unobtainable: Yes - due to ams Allergies: Coded Allergies: No Known Allergies (Unverified , 04/30/16) Subjective no acute events some vaginal bleeding noted yesterday, resolved vaginal mass suspected per RN report awaiting process steward eval Objective Last 24 Hour Vital Signs Date Time Temp Pulse Resp B/P (MAP) Pulse Ox O2 Delivery O2 Flow Rate FiO2 12/20/17 16:00 96 12/20/17 16:00 96.8 94 18 133/66 (88) 98 96.8 12/20/17 12:00 96.2 80 18 129/82 (98) 98 96.2 12/20/17 12:00 84 12/20/17 09:00 Room Air 12/20/17 08:30 100 137/78 12/20/17 08:00 0 12/20/17 08:00 87 12/20/17 08:00 97.0 77 18 137/78 (97) 98 97.0 12/20/17 04:00 98.0 64 20 133/69 (90) 98 98.0 12/20/17 04:00 117 12/20/17 00:00 124 12/20/17 00:00 96.6 76 19 123/71 (88) 94 96.6 12/19/17 21:00 Room Air 12/19/17 20:45 165 131/64 12/19/17 20:13 96 18 Room Air 12/19/17 20:11 97 Room Air 12/19/17 20:00 97.2 89 22 131/64 (86) 95 97.2 12/19/17 20:00 172 Intake and Output 12/19/17 12/20/17 19:00 07:00 Intake Total 1590 ml 75 ml Balance 1590 ml 75 ml Intake Free Water 120 ml IV Total 750 ml 75 ml Tube Feeding 720 ml # Voids 3 2 # Bowel Movements 1 2 Laboratory Tests 12/19/17 20:15: Troponin I 0.005 12/20/17 06:40: White Blood Count 8.3, Red Blood Count 3.94L, Hemoglobin 9.9L, Hematocrit 31.6L , Mean Corpuscular Volume 80, Mean Corpuscular Hemoglobin 25.2L, Mean Corpuscular Hemoglobin Concent 31.4L, Red Cell Distribution Width 18.4H, Platelet Count 244, Mean Platelet Volume 7.2, Neutrophils (%) (Auto) 51.8, Lymphocytes (%) (Auto) 33.0, Monocytes (%) (Auto) 13.5H, Eosinophils (%) (Auto) 0.3, Basophils (%) (Auto) 1.5, Sodium Level 140, Potassium Level 4.6, Chloride Level 105, Carbon Dioxide Level 27, Anion Gap 8, Blood Urea Nitrogen 29H, Creatinine 1.0, Estimat Glomerular Filtration Rate , Glucose Level 150H, Calcium Level 8.3L 12/20/17 11:30: Chlamydia trachomatis RNA [Pending] Height (Feet): 5 Height (Inches): 7.00 Weight (Pounds): 146 Objective General Appearance: no apparent distress HEENT: normocephalic, atraumatic, PERRL Neck: non-tender, supple, normal inspection Respiratory/Chest: chest wall non-tender, lungs clear, no respiratory distress , no accessory muscle use Cardiovascular/Chest: normal peripheral pulses, no gallop/murmur, no JVD, irregularly irregular Abdomen: non tender, soft, no organomegaly, no mass Extremities: normal inspection, no edema, no cyanosis Neurologic: iron miner II-XII grossly normal Sanjay Dillard MD Dec 20, 2017 17:08
[2017-12-20 18:28] LABS: FERRITIN 32 NG/ML (8-388); LACTATE DEHYDROGENASE 307 U/L (81-234)
[2017-12-20 18:59] LABS: % IRON SATURATION 16 % (15-50); IRON 43 ug/dL (50-175); TOTAL IRON BINDING CAPACITY 274 ug/dL (250-450)
[2017-12-20 20:00] VITALS: BP 135/85
[2017-12-20] MEDS: Atorvastatin 80mg tab ORAL SCH (20:39)
[2017-12-21] VITALS: BP 127/87
[2017-12-21 04:00] VITALS: BP 137/81
[2017-12-21 08:00] VITALS: BP 162/112
--- NOTE | 2017-12-21 08:15 | Consultation ---
DATE OF CONSULTATION: 12/20/2017 NOTE: POOR AUDIO HEMATOLOGY/ONCOLOGY CONSULTATION CONSULTING PHYSICIAN: Jerry Delarosa M.D. REQUESTING PHYSICIAN: Melanie Byrne M.D. REASON FOR CONSULTATION: Evaluation of anemia. IDENTIFYING DATA: Dear Dr. Byrne and : The patient is a pleasant 72-year-old female with history of fall, history of G-tube placement, history of CVA, history of atrial fibrillation, noted to have a recent fall onto a nightstand, not noted to have any loss of consciousness, history of rib fracture, CVA, history of basal ischemia. Lab values were reviewed. The patient was noted to have atrial flutter, noted to have anemia, and IV diltiazem was given, discussed with and Dr. Byrne regarding patient management. The patient was noted to have anemia and Hematology Service was consulted for further evaluation and treatment. PAST MEDICAL HISTORY: History of CVA, ischemia. PAST SURGICAL HISTORY: None. MEDICATIONS: Lipitor, , metoprolol, , sulfasalazine, . ALLERGIES: No known drug allergies. FAMILY HISTORY: Noncontributory. REVIEW OF SYSTEMS: CONSTITUTIONAL: No fevers, chills, or night sweats. SKIN: No rashes, bumps, or itching. HEENT: No headache, hearing or visual changes. BREASTS: No lumps, pain, or discharge. PULMONARY: No cough, sputum, or shortness of breath. GASTROINTESTINAL: No nausea, vomiting, or diarrhea. GENITOURINARY: No dysuria, frequency, or urgency. MUSCULOSKELETAL: No joint swelling, muscle pain, or trauma. PHYSICAL EXAMINATION: VITAL SIGNS: Reviewed. GENERAL: No acute distress. PULMONARY: Decreased breath sounds. CARDIOVASCULAR: Regular rate. No S3 or S4. ABDOMEN: Soft, nontender, and nondistended. EXTREMITIES: No cyanosis, swelling, or edema noted. LABORATORY DATA: WBC 9.2, hemoglobin 9.9, and platelets 224,000. Total bilirubin 0.3. Albumin 2.2. Total protein 9. Serology reviewed. ASSESSMENT AND RECOMMENDATION: 1. Anemia due to underlying chronic disease. Obtain anemia panel. tomorrow morning. Monitor closely for improvement. 2. Anemia due to vaginal bleeding. Dr. Don Ludwig, BIOMEDICAL ENGINEERING TECHNICIAN has been consulted. 3. . Currently stable at this time. 4. Dysphagia, status post gastrostomy tube. 5. Chronic atrial fibrillation with history of rapid ventricular response. Rate controlled on aspirin and . 6. Hypertension, on multiple hypertensive medications. I appreciate the consultation. Jerry Delarosa M.D. DR: NALDO JOB#: [id number] CC:
[2017-12-21] MEDS: Heparin 5000 units/ml inj SUBQ SCH ×2 (08:41→20:10)
[2017-12-21] MEDS: Aspirin Baby 81mg NG SCH (09:01)
[2017-12-21] MEDS: Morphine Sulfate 2mg/ml Inj(IV/IM USE ONLY) IVP PRN (09:01)
[2017-12-21] MEDS: Metoprolol Tartrate 50mg tab ORAL SCH ×2 (09:01→20:23)
[2017-12-21] MEDS: D5 1/2NS 1,000 ML IV SCH ×2 (09:02→22:46)
[2017-12-21] MEDS: Tamsulosin 0.4mg cap ORAL SCH (09:02)
[2017-12-21 11:51] LABS: BASOPHILS % (AUTO) 0.3 % (0.0-2.0); EOSINOPHILS % (AUTO) 0.3 % (0.0-3.0); HEMATOCRIT 31.9 % (37.0-47.0); HEMOGLOBIN 9.7 G/DL (12.0-16.0); LYMPHOCYTES % (AUTO) 27.5 % (20.0-45.0); MEAN CORPUSCULAR VOLUME 81 FL (80-99); MONOCYTES % (AUTO) 10.6 % (1.0-10.0); NEUTROPHILS % (AUTO) 61.3 % (45.0-75.0); PLATELET COUNT 238 K/UL (150-450); RED BLOOD COUNT 3.96 M/UL (4.20-5.40); RED CELL DISTRIBUTION WIDTH 18.3 % (11.6-14.8); WHITE BLOOD COUNT 8.2 K/UL (4.8-10.8)
[2017-12-21] MEDS ORDERED: LORazepam Inj 2mg/ml 1ml IVP SCH (11:53)
[2017-12-21 12:00] VITALS: BP 148/95
--- NOTE | 2017-12-21 12:01 | Consultation ---
Consult Note Consult Note GYNECOLOGY CONSULT NOTE CC: VAGINAL MASS HPI: Patient is a 72yo admitted with AFib and RVR who was found to have a vaginal lump at time of pruitt placement. Lump is foul-smelling and friable. Unclear where the lump is arising from. Unable to place pruitt due to mass. Patient is unable to communicate with me clearly and cannot give a HPI for this mass. No family at bedside. PMH: Dementia, HLD, HTN, CVA w/generalized weakness, Seizure d/o, Depression, Encephalopathy, UTI PSH: Unknown MEDS: Metoprolol, ASA, Keppra, Folic Acid, Flomax ALLERGIES: NKDA OBHx: 2 children that I am aware of GYNHx: Unable to elicit SOCHx: Lives in assisted care facility FAMHx: Unable to elicit VITALS:Tmax 98.2, BP 162/112, P 93, RR 20, O2 98% RA EXAM: Gen: Alert but unable to orient HEENT: MM dry, lack of dentition, lips swollen, dried blood in hair and small scrape on left forehead Neck: No obvious thyromegaly CV: No tachycardia Pulm: No increased work of breathing, voice raspy and possible wheezes appreciated Abd: Soft, NT Pelvic: Mass noted protruding from vagina, coming off anterior vaginal wall. On palpation severe necrosis and malodorous discharge, +friable, appears to be extending from urethral meatus although difficult to examine the patient. Ext: scar on left knee, limbs thin, good strength in LE bilaterally Skin: dry LABS: Laboratory Tests Test 12/21/17 11:40 White Blood Count 8.2 K/UL (4.8-10.8) Red Blood Count 3.96 M/UL (4.20-5.40) L Hemoglobin 9.7 G/DL (12.0-16.0) L Hematocrit 31.9 % (37.0-47.0) L Mean Corpuscular Volume 81 FL (80-99) Mean Corpuscular Hemoglobin 24.5 PG (27.0-31.0) L Mean Corpuscular Hemoglobin Concent 30.4 G/DL (32.0-36.0) L Red Cell Distribution Width 18.3 % (11.6-14.8) H Platelet Count 238 K/UL (150-450) Mean Platelet Volume 6.6 FL (6.5-10.1) Neutrophils (%) (Auto) 61.3 % (45.0-75.0) Lymphocytes (%) (Auto) 27.5 % (20.0-45.0) Monocytes (%) (Auto) 10.6 % (1.0-10.0) H Eosinophils (%) (Auto) 0.3 % (0.0-3.0) Basophils (%) (Auto) 0.3 % (0.0-2.0) Sodium Level Pending Potassium Level Pending Chloride Level Pending Carbon Dioxide Level Pending Blood Urea Nitrogen Pending Creatinine Pending Estimat Glomerular Filtration Rate Pending Glucose Level Pending Calcium Level Pending Total Bilirubin Pending Aspartate Amino Transf (AST/SGOT) Pending Alanine Aminotransferase (ALT/SGPT) Pending Alkaline Phosphatase Pending Total Protein Pending Albumin Pending Globulin Pending Thyroid Stimulating Hormone (TSH) Pending IMAGING: CT C-spine: IMPRESSION: 1. Motion degradation. No definite fracture or malalignment. 2. Posterior vertebral calcification C4 and C5 resulting in severe central canal narrowing at C3-4 and C4-5 with central protrusion of calcification into the central canal and effacement of the thecal sac, worse on the right. 3. Moderate to severe bilateral neural foraminal narrowing C3-C5. 4. Bilateral thyroid nodules, largest 8.9 mm. . Consider thyroid ultrasound. 5. Bilateral lung nodules, largest 7.9 mm on the left lung and 14 mm right posterior lung. Worrisome for metastases. Assessment/Plan 72yo with vaginal bleeding and inability to insert pruitt catheter, exam concerning for urethral prolapse with necrosis vs vaginal mass - Recommend urgent Urology consult - CT C-spine concerning for lung mets, recommend CT C/A/P with and without contrast AARON - Recommend imaging (CT vs MRI vs Ultrasound) to determine where the mass is arising from (RETAIL PRODUCT ADVISOR vs ) - Exam poorly tolerated by patient, Ativan 0.5mg required for exam, would recommend this and pain medication for any future exams given her level of discomfort Signed: MD Ari Tineo Carla M.D. Dec 21, 2017 12:01
[2017-12-21 12:09] LABS: ANION GAP 8 mmol/L (5-15); BLOOD UREA NITROGEN 23 mg/dL (7-18); CALCIUM 8.1 MG/DL (8.5-10.1); CARBON DIOXIDE 28 MMOL/L (21-32); CHLORIDE 103 MMOL/L (98-107); CREATININE 0.9 MG/DL (0.55-1.30); POTASSIUM 4.1 MMOL/L (3.5-5.1); SODIUM 138 MMOL/L (136-145)
--- NOTE | 2017-12-21 12:11 | General Progress Note ---
Assessment/Plan Assessment/Plan MDD Anxiety d/o Vascular Dementia Remeron 15mg qhs Ativan prn Subjective Date patient seen: Dec 21, 2017 Neurologic/Psychiatric: Reports: anxiety, depressed, emotional problems Allergies: Coded Allergies: No Known Allergies (Unverified , 04/30/16) Subjective the pt has vaginal mass agitated and the exam was not fully successful by stogy roller they gave ativan .5mg Objective Last 24 Hour Vital Signs Date Time Temp Pulse Resp B/P (MAP) Pulse Ox O2 Delivery O2 Flow Rate FiO2 12/21/17 09:01 93 162/112 12/21/17 09:00 Room Air 12/21/17 08:00 86 12/21/17 08:00 97.5 93 20 162/112 (129) 98 97.5 12/21/17 04:00 89 12/21/17 04:00 98.2 100 18 137/81 (99) 95 98.2 12/21/17 00:00 97.5 74 18 127/87 (100) 96 97.5 12/21/17 00:00 85 12/20/17 21:00 Room Air 12/20/17 20:45 85 135/85 12/20/17 20:25 96 Room Air 21 12/20/17 20:00 76 12/20/17 20:00 97.7 82 18 135/85 (102) 97 97.7 12/20/17 16:00 96 12/20/17 16:00 96.8 94 18 133/66 (88) 98 96.8 Intake and Output 12/20/17 12/21/17 19:00 07:00 Intake Total 1525 ml Balance 1525 ml Intake Free Water 100 ml IV Total 825 ml Tube Feeding 600 ml # Voids 3 # Bowel Movements 3 Laboratory Tests 12/21/17 11:40: White Blood Count 8.2, Red Blood Count 3.96L, Hemoglobin 9.7L, Hematocrit 31.9L , Mean Corpuscular Volume 81, Mean Corpuscular Hemoglobin 24.5L, Mean Corpuscular Hemoglobin Concent 30.4L, Red Cell Distribution Width 18.3H, Platelet Count 238, Mean Platelet Volume 6.6, Neutrophils (%) (Auto) 61.3, Lymphocytes (%) (Auto) 27.5, Monocytes (%) (Auto) 10.6H, Eosinophils (%) (Auto) 0.3, Basophils (%) (Auto) 0.3, Sodium Level [Pending], Potassium Level [Pending] , Chloride Level [Pending], Carbon Dioxide Level [Pending], Blood Urea Nitrogen [Pending], Creatinine [Pending], Estimat Glomerular Filtration Rate [Pending], Glucose Level [Pending], Calcium Level [Pending], Total Bilirubin [Pending], Aspartate Amino Transf (AST/SGOT) [Pending], Alanine Aminotransferase (ALT/SGPT ) [Pending], Alkaline Phosphatase [Pending], Total Protein [Pending], Albumin [ Pending], Globulin [Pending], Thyroid Stimulating Hormone (TSH) [Pending] Height (Feet): 5 Height (Inches): 7.00 Weight (Pounds): 146 General Appearance: alert, confused, agitated Kunal Tse MD Dec 21, 2017 12:11
--- NOTE | 2017-12-21 12:19 | General Progress Note ---
Assessment/Plan Assessment/Plan #. Heterogeneous mass lesion involving the bladder, with portions of the posterior bladder inseparable from the lower uterine segment/cervix and vagina. Findings are highly concerning for malignancy, either bladder or gynecologic ( vaginal/cervical/uterine) in etiology --> obtain CT C/A/P with iv contrast --> tumor markers pending --> eval with uro as needed --> will likely need biopsy #. Anemia due to iron deficiency --> eval for gi bleed as need v vaginal bleed --> iron iv has been started x 5 days --> appreciate recs from Dr. Chapman (Tester Compressed Gases) #. Dysphagia, status post gastrostomy tube. #. Chronic atrial fibrillation with history of rapid ventricular response. Rate controlled on aspirin --> anticoag once above worked up #. Hypertension, on multiple hypertensive medications. Subjective Allergies: Coded Allergies: No Known Allergies (Unverified , 04/30/16) All Systems: reviewed and negative except above Subjective pending ct scan Objective Last 24 Hour Vital Signs Date Time Temp Pulse Resp B/P (MAP) Pulse Ox O2 Delivery O2 Flow Rate FiO2 12/21/17 09:01 93 162/112 12/21/17 09:00 Room Air 12/21/17 08:00 86 12/21/17 08:00 97.5 93 20 162/112 (129) 98 97.5 12/21/17 04:00 89 12/21/17 04:00 98.2 100 18 137/81 (99) 95 98.2 12/21/17 00:00 97.5 74 18 127/87 (100) 96 97.5 12/21/17 00:00 85 12/20/17 21:00 Room Air 12/20/17 20:45 85 135/85 12/20/17 20:25 96 Room Air 21 12/20/17 20:00 76 12/20/17 20:00 97.7 82 18 135/85 (102) 97 97.7 12/20/17 16:00 96 12/20/17 16:00 96.8 94 18 133/66 (88) 98 96.8 Intake and Output 12/20/17 12/21/17 19:00 07:00 Intake Total 1525 ml Balance 1525 ml Intake Free Water 100 ml IV Total 825 ml Tube Feeding 600 ml # Voids 3 # Bowel Movements 3 Laboratory Tests 12/21/17 11:40: White Blood Count 8.2, Red Blood Count 3.96L, Hemoglobin 9.7L, Hematocrit 31.9L , Mean Corpuscular Volume 81, Mean Corpuscular Hemoglobin 24.5L, Mean Corpuscular Hemoglobin Concent 30.4L, Red Cell Distribution Width 18.3H, Platelet Count 238, Mean Platelet Volume 6.6, Neutrophils (%) (Auto) 61.3, Lymphocytes (%) (Auto) 27.5, Monocytes (%) (Auto) 10.6H, Eosinophils (%) (Auto) 0.3, Basophils (%) (Auto) 0.3, Sodium Level 138, Potassium Level 4.1, Chloride Level 103, Carbon Dioxide Level 28, Anion Gap 8, Blood Urea Nitrogen 23H, Creatinine 0.9, Estimat Glomerular Filtration Rate , Glucose Level 136H, Calcium Level 8.1L, Total Bilirubin [Pending], Aspartate Amino Transf (AST/SGOT ) [Pending], Alanine Aminotransferase (ALT/SGPT) [Pending], Alkaline Phosphatase [Pending], Total Protein [Pending], Albumin [Pending], Globulin [ Pending], Thyroid Stimulating Hormone (TSH) [Pending] Height (Feet): 5 Height (Inches): 7.00 Weight (Pounds): 146 General Appearance: no apparent distress EENT: TMs normal Neck: normal inspection Cardiovascular: regular rhythm Respiratory/Chest: lungs clear Abdomen: normal bowel sounds Extremities: non-tender Edema: 1+ Leg (L), 1+ Leg (R) Neurologic: alert Skin: warm/dry Jerry Delarosa MD Dec 21, 2017 12:19
[2017-12-21 12:23] LABS: ALANINE AMINOTRANSFERASE 29 U/L (12-78); ALBUMIN/GLOBULIN RATIO 0.3 (1.0-2.7); ALKALINE PHOSPHATASE 128 U/L (46-116); ASPARTATE AMINO TRANSFERASE 43 U/L (15-37); BILIRUBIN,TOTAL 0.4 MG/DL (0.2-1.0)
[2017-12-21] MEDS ORDERED: Isovue-300 100ml vial INJ PRN (12:30)
--- NOTE | 2017-12-21 13:30 | Cardiology Progress Note ---
Assessment/Plan Status: stable Assessment/Plan Assessment/Plan Problem List: (1) Atrial fibrillation with RVR (2) Altered mental status (3) S/P percutaneous endoscopic gastrostomy (PEG) tube placement (4) Chronic a-fib (5) Dementia (6) CHF (congestive heart failure) (7) HTN (hypertension) -aspirin due to fall risk -Statin -Rate control with metoprolol -start norvasc 5 mg daily -echocardiogram - reviewed, normal LV function, grade III diastolic dysfunction and moderate pulmonary hypertension -Spot dose diuretics to keep negative and reduce filling pressures, lasix 20 mg daily -no indication for cardioversion -Rhythm was atrial flutter vs atrial tachycardia, no anticoagulation needed -monitor BP, slowly introduce medications as needed, concern for polypharmacy and hypotension as culprit given 4 anti hypertensive medications -supportive care Subjective Cardiovascular: Reports: no symptoms Respiratory: Reports: no symptoms Gastrointestinal/Abdominal: Reports: no symptoms Genitourinary: Reports: no symptoms Subjective patient is on bed asleep. no signs of acute distress noted. patient is stable, remains SR all throughout the night Heart rate controlled, vitals stable, g tube running with feeds Objective Last 24 Hour Vital Signs Date Time Temp Pulse Resp B/P (MAP) Pulse Ox O2 Delivery O2 Flow Rate FiO2 12/21/17 09:01 93 162/112 12/21/17 09:00 Room Air 12/21/17 08:00 86 12/21/17 08:00 97.5 93 20 162/112 (129) 98 97.5 12/21/17 04:00 89 12/21/17 04:00 98.2 100 18 137/81 (99) 95 98.2 12/21/17 00:00 97.5 74 18 127/87 (100) 96 97.5 12/21/17 00:00 85 12/20/17 21:00 Room Air 12/20/17 20:45 85 135/85 12/20/17 20:25 96 Room Air 21 12/20/17 20:00 76 12/20/17 20:00 97.7 82 18 135/85 (102) 97 97.7 12/20/17 16:00 96 12/20/17 16:00 96.8 94 18 133/66 (88) 98 96.8 General Appearance: no apparent distress EENT: PERRL/EOMI Neck: non-tender Rhythm: NSR Cardiovascular: normal peripheral pulses, normal rate Respiratory/Chest: chest wall non-tender Abdomen: normal bowel sounds Extremities: normal range of motion Neurologic: cost estimating manager II-XII grossly normal Intake and Output 12/20/17 12/21/17 19:00 07:00 Intake Total 1525 ml Balance 1525 ml Intake Free Water 100 ml IV Total 825 ml Tube Feeding 600 ml # Voids 3 # Bowel Movements 3 Laboratory Tests Test 12/21/17 11:40 White Blood Count 8.2 K/UL (4.8-10.8) Red Blood Count 3.96 M/UL (4.20-5.40) L Hemoglobin 9.7 G/DL (12.0-16.0) L Hematocrit 31.9 % (37.0-47.0) L Mean Corpuscular Volume 81 FL (80-99) Mean Corpuscular Hemoglobin 24.5 PG (27.0-31.0) L Mean Corpuscular Hemoglobin Concent 30.4 G/DL (32.0-36.0) L Red Cell Distribution Width 18.3 % (11.6-14.8) H Platelet Count 238 K/UL (150-450) Mean Platelet Volume 6.6 FL (6.5-10.1) Neutrophils (%) (Auto) 61.3 % (45.0-75.0) Lymphocytes (%) (Auto) 27.5 % (20.0-45.0) Monocytes (%) (Auto) 10.6 % (1.0-10.0) H Eosinophils (%) (Auto) 0.3 % (0.0-3.0) Basophils (%) (Auto) 0.3 % (0.0-2.0) Sodium Level 138 MMOL/L (136-145) Potassium Level 4.1 MMOL/L (3.5-5.1) Chloride Level 103 MMOL/L (98-107) Carbon Dioxide Level 28 MMOL/L (21-32) Anion Gap 8 mmol/L (5-15) Blood Urea Nitrogen 23 mg/dL (7-18) H Creatinine 0.9 MG/DL (0.55-1.30) Estimat Glomerular Filtration Rate mL/min (>60) Glucose Level 136 MG/DL (74-106) H Calcium Level 8.1 MG/DL (8.5-10.1) L Total Bilirubin 0.4 MG/DL (0.2-1.0) Aspartate Amino Transf (AST/SGOT) 43 U/L (15-37) H Alanine Aminotransferase (ALT/SGPT) 29 U/L (12-78) Alkaline Phosphatase 128 U/L (46-116) H Total Protein 8.1 G/DL (6.4-8.2) Albumin 2.0 G/DL (3.4-5.0) L Globulin 6.1 g/dL Albumin/Globulin Ratio 0.3 (1.0-2.7) L Alpha Fetoprotein Pending Carcinoembryonic Antigen Pending CA 15-3 Antigen Pending CA 19-9 Antigen Pending CA 125 Antigen Pending Thyroid Stimulating Hormone (TSH) 1.610 uiU/mL (0.358-3.740) Immunoglobulin G Pending Immunoglobulin A Pending Immunoglobulin M Pending Immunofixation Screen Pending Microbiology Date/Time Source Procedure Growth Status 12/19/17 17:50 Vaginal Gram Stain - Final Resulted 12/19/17 17:50 Vaginal Neisseria gonorrhoeae Culture - Preliminary No Neisseria gonorrhoeae isolated Resulted 12/18/17 23:04 Nasal Nares MRSA Culture - Final NO METHICILLIN RESISTANT STAPH AUREUS... Complete 12/18/17 23:04 Rectum VRE Culture - Final Enterococcus Faecalis - Vre Complete 12/18/17 23:04 Rectum - Final NO CARBAPENEM-RESISTANT ENTEROBACTERI... Complete Nikolai Brooks M.D. Dec 21, 2017 13:30
--- NOTE | 2017-12-21 15:24 | General Progress Note ---
Assessment/Plan Problem List: (1) Dysphagia ICD Codes: R13.10 - Dysphagia, unspecified SNOMED: 44288182, 657595658 (2) Seizure disorder ICD Codes: G40.909 - Epilepsy, unspecified, not intractable, without status epilepticus SNOMED: 237738750 (3) Vaginal bleeding ICD Codes: N93.9 - Abnormal uterine and vaginal bleeding, unspecified SNOMED: 684957752, 308721204 (4) HLD (hyperlipidemia) ICD Codes: E78.5 - Hyperlipidemia, unspecified SNOMED: 09125247 (5) H/O: CVA (cerebrovascular accident) ICD Codes: Z86.73 - Personal history of transient ischemic attack (TIA), and cerebral infarction without residual deficits SNOMED: 409646422 (6) lives at snf (7) Atrial fibrillation with RVR ICD Codes: I48.91 - Unspecified atrial fibrillation SNOMED: 878041766959517 (8) Laceration of forehead ICD Codes: S01.81XA - Laceration without foreign body of other part of head, initial encounter SNOMED: 251340774, 636686225 (9) Head contusion ICD Codes: S00.93XA - Contusion of unspecified part of head, initial encounter SNOMED: 805261458, 208827484 (10) Dementia ICD Codes: F03.90 - Unspecified dementia without behavioral disturbance SNOMED: 38287435 (11) HTN (hypertension) ICD Codes: I10 - Essential (primary) hypertension SNOMED: 56582613 (12) S/P percutaneous endoscopic gastrostomy (PEG) tube placement ICD Codes: Z93.1 - Gastrostomy status SNOMED: 493308710 (13) Fall ICD Codes: W19.XXXA - Unspecified fall, initial encounter SNOMED: 9276305, 626901384 (14) Atrial flutter ICD Codes: I48.92 - Unspecified atrial flutter SNOMED: 0441314 Status: stable, progressing Assessment/Plan - appreciate cards recs and mgt - appreciate OBGYN rec's -- per OBGYN bleed from vaginal area does not seem to be vaginal as the source but instead seems to be a necrotic urethral mass - urology consulted for possible necrotic urethral mass, awaiting eval - oncology consulted for multiple lung nodules and thyroid nodules concerning for metastasis, awaiting eval - f/u stat CT chest/abdomen/pelvis w/o contrast - f/u tumor markers - serial tn neg - asa, statin - bb - monitor H/H - supportive care - tube feeds -- decrease rate to 45 cc/hr DVT ppx: SCD's CODE STATUS: Full Anticipate pt will require 3-4 days of inpatient mgt, anticipate discharge to SNF, [facility] 40 min spent on this case and 23 min dedicated to counseling and or care coordination. Time of note may not reflect time of clinical encounter. Subjective Date patient seen: Dec 21, 2017 Allergies: Coded Allergies: No Known Allergies (Unverified , 04/30/16) Subjective - having gross blood with foul smell from vaginal area - Hgb stable - AF, HDS - unable to tolerate tube feeds at 60 cc/hr, having residuals Objective Last 24 Hour Vital Signs Date Time Temp Pulse Resp B/P (MAP) Pulse Ox O2 Delivery O2 Flow Rate FiO2 12/21/17 12:00 97.2 92 20 148/95 (112) 97 97.2 12/21/17 12:00 99 12/21/17 09:01 93 162/112 12/21/17 09:00 Room Air 12/21/17 08:00 86 12/21/17 08:00 97.5 93 20 162/112 (129) 98 97.5 12/21/17 04:00 89 12/21/17 04:00 98.2 100 18 137/81 (99) 95 98.2 12/21/17 00:00 97.5 74 18 127/87 (100) 96 97.5 12/21/17 00:00 85 12/20/17 21:00 Room Air 12/20/17 20:45 85 135/85 12/20/17 20:25 96 Room Air 21 12/20/17 20:00 76 12/20/17 20:00 97.7 82 18 135/85 (102) 97 97.7 12/20/17 16:00 96 12/20/17 16:00 96.8 94 18 133/66 (88) 98 96.8 Intake and Output 12/20/17 12/21/17 19:00 07:00 Intake Total 1525 ml Balance 1525 ml Intake Free Water 100 ml IV Total 825 ml Tube Feeding 600 ml # Voids 3 # Bowel Movements 3 Laboratory Tests 12/21/17 11:40: White Blood Count 8.2, Red Blood Count 3.96L, Hemoglobin 9.7L, Hematocrit 31.9L , Mean Corpuscular Volume 81, Mean Corpuscular Hemoglobin 24.5L, Mean Corpuscular Hemoglobin Concent 30.4L, Red Cell Distribution Width 18.3H, Platelet Count 238, Mean Platelet Volume 6.6, Neutrophils (%) (Auto) 61.3, Lymphocytes (%) (Auto) 27.5, Monocytes (%) (Auto) 10.6H, Eosinophils (%) (Auto) 0.3, Basophils (%) (Auto) 0.3, Sodium Level 138, Potassium Level 4.1, Chloride Level 103, Carbon Dioxide Level 28, Anion Gap 8, Blood Urea Nitrogen 23H, Creatinine 0.9, Estimat Glomerular Filtration Rate , Glucose Level 136H, Calcium Level 8.1L, Total Bilirubin 0.4, Aspartate Amino Transf (AST/SGOT) 43H, Alanine Aminotransferase (ALT/SGPT) 29, Alkaline Phosphatase 128H, Total Protein 8.1, Albumin 2.0L, Globulin 6.1, Albumin/Globulin Ratio 0.3L, Alpha Fetoprotein [Pending], Carcinoembryonic Antigen [Pending], CA 15-3 Antigen [ Pending], CA 19-9 Antigen [Pending], CA 125 Antigen [Pending], Thyroid Stimulating Hormone (TSH) 1.610, Immunoglobulin G [Pending], Immunoglobulin A [ Pending], Immunoglobulin M [Pending], Immunofixation Screen [Pending] Height (Feet): 5 Height (Inches): 7.00 Weight (Pounds): 146 General Appearance: no apparent distress, alert EENT: PERRL/EOMI, normal ENT inspection Neck: non-tender, normal alignment, supple Cardiovascular: normal peripheral pulses, normal rate, regular rhythm Respiratory/Chest: chest wall non-tender, lungs clear, normal breath sounds Abdomen: normal bowel sounds, non tender, soft Pelvis: blood, mass Extremities: normal range of motion, non-tender Neurologic: time study technician II-XII grossly normal, no motor/sensory deficits, alert Skin: normal pigmentation, warm/dry Hattie Sow NP Dec 21, 2017 15:24
--- NOTE | 2017-12-21 15:40 | Consultation ---
History of Present Illness General Date patient seen: Dec 20, 2017 Chief Complaint: Head Injury Present Illness HPI 72-year-old female w/ Hx a fib, CVA, Dementia, mdd, G tube who presented after a witnessed fall. the pt is a poor historian and unable to provide hx. the pt has been on 3 antidepressant prior to admission. the pt has hx of vascular dementia the pt is anxious Allergies: Coded Allergies: No Known Allergies (Unverified , 04/30/16) Medication History Scheduled Ampicillin (Ampicillin Trihydrate), 500 MG PO QID Aspirin* (Aspirin*), 81 MG NG DAILY Atorvastatin Calcium* (Lipitor*), 80 MG ORAL BEDTIME, (Reported) Folic Acid* (Folic Acid*), 1 MG ORAL DAILY, (Reported) Hydralazine Hcl* (Hydralazine Hcl*), 10 MG ORAL EVERY 6 HOURS, (Reported) Levetiracetam (Levetiracetam), 750 MG NG Q12HR Levofloxacin* (Levaquin*), 500 MG ORAL DAILY Metoprolol Tartrate* (Metoprolol Tartrate*), 50 MG ORAL EVERY 12 HOURS, ( Reported) Metoprolol Tartrate* (Metoprolol Tartrate*), 50 MG ORAL Q12HR Mirtazapine* (Remeron*), 15 MG ORAL BEDTIME, (Reported) Nifedipine (Nifedipine*), 30 MG ORAL EVERY 12 HOURS, (Reported) Nifedipine Xl* (Procardia Xl*), 30 MG ORAL Q12HR Omeprazole (Omeprazole), 20 MG ORAL DAILY, (Reported) Paroxetine Hcl* (Paxil*), 20 MG ORAL DAILY, (Reported) Sulfasalazine* (Azulfidine*), 500 MG ORAL BEFORE MEALS, (Reported) Tamsulosin HCl (Flomax), 0.4 MG ORAL DAILY Trazodone* (Trazodone*), 12.5 MG ORAL BEDTIME, (Reported) Valsartan (Diovan), 80 MG ORAL DAILY, (Reported) Scheduled PRN Acetaminophen* (Acetaminophen 325MG Tablet*), 650 MG ORAL Q4H PRN for For Pain, (Reported) Miscellaneous Medications Cranberry Fruit (Cranberry), 400 MG GT, (Reported) Methotrexate Sodium* (Methotrexate*), 2.5 MG PO, (Reported) Patient History Limited by: medical condition History Provided By: Medical Record, PMD Healthcare decision maker Isiah Marquez, andrei Resuscitation status Full Code Advanced Directive on File Review of Systems Psychiatric: Reports: prior hx, anxiety, depressed feelings Physical Exam General Appearance: alert, confused, mild distress Last 24 Hour Vital Signs Date Time Temp Pulse Resp B/P (MAP) Pulse Ox O2 Delivery O2 Flow Rate FiO2 12/21/17 12:00 97.2 92 20 148/95 (112) 97 97.2 12/21/17 12:00 99 12/21/17 09:01 93 162/112 12/21/17 09:00 Room Air 12/21/17 08:00 86 12/21/17 08:00 97.5 93 20 162/112 (129) 98 97.5 12/21/17 04:00 89 12/21/17 04:00 98.2 100 18 137/81 (99) 95 98.2 12/21/17 00:00 97.5 74 18 127/87 (100) 96 97.5 12/21/17 00:00 85 12/20/17 21:00 Room Air 12/20/17 20:45 85 135/85 12/20/17 20:25 96 Room Air 21 12/20/17 20:00 76 12/20/17 20:00 97.7 82 18 135/85 (102) 97 97.7 12/20/17 16:00 96 12/20/17 16:00 96.8 94 18 133/66 (88) 98 96.8 Intake and Output 12/20/17 12/21/17 19:00 07:00 Intake Total 1525 ml Balance 1525 ml Intake Free Water 100 ml IV Total 825 ml Tube Feeding 600 ml # Voids 3 # Bowel Movements 3 Laboratory Tests Test 12/21/17 11:40 White Blood Count 8.2 K/UL (4.8-10.8) Red Blood Count 3.96 M/UL (4.20-5.40) L Hemoglobin 9.7 G/DL (12.0-16.0) L Hematocrit 31.9 % (37.0-47.0) L Mean Corpuscular Volume 81 FL (80-99) Mean Corpuscular Hemoglobin 24.5 PG (27.0-31.0) L Mean Corpuscular Hemoglobin Concent 30.4 G/DL (32.0-36.0) L Red Cell Distribution Width 18.3 % (11.6-14.8) H Platelet Count 238 K/UL (150-450) Mean Platelet Volume 6.6 FL (6.5-10.1) Neutrophils (%) (Auto) 61.3 % (45.0-75.0) Lymphocytes (%) (Auto) 27.5 % (20.0-45.0) Monocytes (%) (Auto) 10.6 % (1.0-10.0) H Eosinophils (%) (Auto) 0.3 % (0.0-3.0) Basophils (%) (Auto) 0.3 % (0.0-2.0) Sodium Level 138 MMOL/L (136-145) Potassium Level 4.1 MMOL/L (3.5-5.1) Chloride Level 103 MMOL/L (98-107) Carbon Dioxide Level 28 MMOL/L (21-32) Anion Gap 8 mmol/L (5-15) Blood Urea Nitrogen 23 mg/dL (7-18) H Creatinine 0.9 MG/DL (0.55-1.30) Estimat Glomerular Filtration Rate mL/min (>60) Glucose Level 136 MG/DL (74-106) H Calcium Level 8.1 MG/DL (8.5-10.1) L Total Bilirubin 0.4 MG/DL (0.2-1.0) Aspartate Amino Transf (AST/SGOT) 43 U/L (15-37) H Alanine Aminotransferase (ALT/SGPT) 29 U/L (12-78) Alkaline Phosphatase 128 U/L (46-116) H Total Protein 8.1 G/DL (6.4-8.2) Albumin 2.0 G/DL (3.4-5.0) L Globulin 6.1 g/dL Albumin/Globulin Ratio 0.3 (1.0-2.7) L Alpha Fetoprotein Pending Carcinoembryonic Antigen Pending CA 15-3 Antigen Pending CA 19-9 Antigen Pending CA 125 Antigen Pending Thyroid Stimulating Hormone (TSH) 1.610 uiU/mL (0.358-3.740) Immunoglobulin G Pending Immunoglobulin A Pending Immunoglobulin M Pending Immunofixation Screen Pending Height (Feet): 5 Height (Inches): 7.00 Weight (Pounds): 146 Medications Current Medications Medications (Trade) Dose Ordered Sig/Renea Route PRN Reason Start Time Stop Time Status Last Admin Dose Admin Albuterol/ Ipratropium (Albuterol/ Ipratropium) 3 ml Q4H PRN HHN Shortness of Breath 12/19/17 19:45 12/24/17 19:44 Amlodipine Besylate (Norvasc) 5 mg DAILY ORAL 12/22/17 13:24 01/21/18 13:23 Aspirin (ASA) 81 mg DAILY NG 12/20/17 09:00 01/19/18 08:59 12/21/17 09:01 Atorvastatin Calcium (Lipitor) 80 mg BEDTIME ORAL 12/19/17 21:00 01/18/18 20:59 12/20/17 20:39 Barium Sulfate (Readi-Cat 2) 450 ml NOW PRN ORAL Radiology Procedure 12/21/17 12:23 Dextrose/Sodium Chloride 1,000 ml @ 75 mls/hr [id number] IV 12/19/17 02:45 01/18/18 02:44 12/21/17 09:02 Folic Acid (Folate) 1 mg DAILY ORAL 12/20/17 09:00 01/19/18 08:59 12/21/17 09:01 Furosemide (Lasix) 20 mg DAILY ORAL 12/21/17 13:45 01/20/18 13:44 12/21/17 15:13 Heparin Sodium (Porcine) (Heparin 5000 units/ml) 5,000 units EVERY 12 HOURS SUBQ 12/19/17 09:00 01/18/18 08:59 12/19/17 08:46 Iopamidol (Isovue-300 100ml) 100 ml NOW PRN INJ Radiology Procedure 12/21/17 12:30 Iron Sucrose 100 mg/Sodium Chloride 60 ml @ 240 mls/hr BEDTIME IV 12/21/17 21:00 12/25/17 21:14 Levetiracetam (Keppra) 750 mg Q12HR NG 12/19/17 21:00 01/18/18 20:59 12/21/17 09:02 Metoprolol Tartrate (Lopressor) 50 mg Q12HR ORAL 12/19/17 09:00 01/18/18 08:59 7/23/18 09:01 Mirtazapine (Remeron) 15 mg BEDTIME ORAL 12/19/17 21:00 01/18/18 20:59 12/20/17 20:40 Morphine Sulfate (Morphine Sulfate) 2 mg Q6H PRN IVP For Pain 12/19/17 18:45 12/26/17 18:44 12/21/17 09:01 Tamsulosin HCl (Flomax) 0.4 mg DAILY ORAL 12/20/17 09:00 01/19/18 08:59 12/21/17 09:02 Assessment/Plan Assessment/Plan MDD Anxiety d/o Vascular Dementia Remeron 15mg qhs Kunal Torres dc, MD Dec 21, 2017 15:40
[2017-12-21 16:00] VITALS: BP 162/100
[2017-12-21] MEDS ORDERED: D5 1/2NS 1000ml IV ONE (16:47)
--- NOTE | 2017-12-21 17:35 | Diagnostic Imaging Report ---
Indication: Abdominal pain. Pelvic mass. Technique: CT of the chest, abdomen and pelvis utilizing automated exposure control with intravenous contrast. Venous scanning performed. Axial, sagittal and coronal reformats presented. CT dose: Total DLP 1427 mGycm; CTDI vol 0.2, 8.1, 129.8, 12.7, 14.7 mGy Comparison: Noncontrast CT of the abdomen and pelvis 11/16/2017 Findings: CT CHEST: There are multiple bilateral pulmonary nodules concerning for metastatic disease. These were partially visualized on the CT of the abdomen and pelvis 11/16/2017 and demonstrate interval increased in size. For example a nodule in the medial right lower lobe currently measures 1.6 cm in diameter while previously measured approximately 9 mm in diameter; a nodule in the medial left lower lobe currently measures 1.4 cm diameter when it previously measured approximately 6 mm diameter. Largest of the pulmonary nodules/masses is noted within the right middle lobe and measures approximately 2.3 cm in diameter. There is no significant pleural effusion. There is no pneumothorax. Heart is enlarged. Adherent to the superior wall of the left atrium is a nonenhancing mass lesion that measures approximately 2 x 1.5 cm (series 8 image #64). This is low in attenuation however not fat attenuating. There is no significant postcontrast enhancement. 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 Correlation with echocardiogram recommended. There are chunky mitral annular calcifications. There are extensive coronary arterial calcifications. Atherosclerotic calcification also noted in the aorta. No evidence of aortic aneurysm or dissection. There is evidence of a degree of right heart failure with reflux of contrast into the hepatic veins. There is no saddle or large central pulmonary embolism. Please note that evaluation is not protocoled for evaluation of subsegmental pulmonary emboli. There are subcentimeter thyroid low-attenuation nodules. There are small hilar lymph nodes. No pathologically enlarged supraclavicular lymphadenopathy. There are degenerative changes in the spine. No suspicious lytic or significant bone lesion is noted. CT ABDOMEN/PELVIS: Images through the abdomen are degraded by patient motion. Calcified gallstones again noted within the gallbladder neck. 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 Liver contour appears smooth. Spleen and adrenal glands grossly unremarkable. The pancreas is mildly atrophic. There are simple appearing cysts in the bilateral kidneys. With some probable parapelvic cysts on the left. No hydronephrosis appreciated bilaterally. There is a heterogeneously enhancing mass lesion within the bladder. This lesion measures approximately 4 cm AP by 4.4 cm transverse. There is extensive bladder wall thickening. Heterogeneous mass is also noted within the vagina, inseparable from the bladder. Mass is also inseparable from portions of the cervix. There is some associated areas of low attenuation which may represent areas of necrosis. There is a calcified likely fibroid in the uterus. Adnexa are poorly evaluated. Some small bilateral pelvic lymph nodes are identified. Abdominal aorta is normal in caliber with atherosclerotic calcification of its branches. There is no evidence of bowel obstruction. No free intraperitoneal air. There is colonic diverticulosis without diverticulitis. A gastrostomy tube is in place. There are degenerative changes of the spine and bilateral hips. No acute osseous abnormality is seen. No suspicious lytic or sclerotic bone lesion is identified. COMBINED IMPRESSION: * Heterogeneous mass lesion within the bladder, contiguous with heterogeneous mass in the vagina highly concerning for malignancy. Uncertain whether this represents a vaginal malignancy which extended into the bladder or bladder malignancy extending into the vagina. Portions of the mass are inseparable from the lower uterine segment/cervix. Again, recommend direct visualization with cystoscopy and/or gynecologic exam. * Multiple bilateral pulmonary nodules most concerning for metastatic disease. Nodules demonstrate interval increase in size compared to exam of 11/16/2017. * Small pelvic lymph nodes. * Cardiomegaly. 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 Correlate with echocardiogram. Additional findings as above. The CT scanner at [facility] is accredited by the [employer] and the scans are performed using protocols designed to limit radiation exposure to as low as reasonably achievable to attain images of sufficient resolution adequate for diagnostic evaluation.
--- NOTE | 2017-12-21 17:38 | Diagnostic Imaging Report ---
Indication: Abdominal pain, pelvic mass Technique: Limited transabdominal pelvic ultrasound Comparison: Concurrent CT of the abdomen and pelvis. Pelvic ultrasound 05/30/2017 Findings: Limited exam as patient uncooperative and contracted. Heterogeneous mass lesion in the region of the bladder noted. A calcification is noted within the myometrium, likely uterine fibroid. IMPRESSION: Limited, incomplete exam. Heterogeneous mass lesion in the bladder concerning for malignancy. Please see report of dedicated CT of the abdomen and pelvis.
[2017-12-21 20:00] VITALS: BP 83/55
[2017-12-21] MEDS: Atorvastatin 80mg tab ORAL SCH (20:25)
[2017-12-21] MEDS: Iron Sucrose 100 MG in NS 55 ML IV SCH (20:26)
--- NOTE | 2017-12-21 20:45 | Cardiology Report ---
APPROVED REPORT EXAM: Two-dimensional and M-mode echocardiogram with Doppler and color Doppler. INDICATION Trans ischemic attack M-Mode DIMENSIONS IVSd1.5 (0.7-1.1cm)Left Atrium (MM)4.3 (1.6-4.0cm) LVDd3.4 (3.5-5.6cm)Aortic Root2.8 (2.0-3.7cm) PWd1.7 (0.7-1.1cm)Aortic Cusp Exc.1.6 (1.5-2.0cm) LVDs2.4 (2.5-4.0cm) PWs1.6 cm Technically difficult study due to poor acoustical windows. Normal left ventricular chamber size, systolic function and wall motion. Left ventricular ejection fraction estimated to be 60-65 %. Moderate to severe left ventricular hypertrophy. No evidence of pericardial or pleural effusion. Right cardiac chamber sizes are within normal limits. Moderate left atrial enlargement by 2D. Focal aortic valve sclerosis with adequate cusp excursion. Moderatly thickened mitral valve leaflets with normal excursion. Mild mitral annulus and aortic root calcification. Pulmonic valve is well visualized. Normal tricuspid valve structure. IVC is not obtainable due to GI tube. A color flow and spectral Doppler study was performed and revealed: Trace aortic regurgitation. Trace mitral regurgitation. Left ventricular diastolic function cannot be assessed due to atrial fibrillation. Mild tricuspid regurgitation. Tricuspid systolic velocities suggests peak right ventricular systolic pressure of 49 mmHg Consistent with moderate pulmonary hypertension. Pulmonic regurgitation present.
--- NOTE | 2017-12-21 23:15 | Consultation ---
DATE OF CONSULTATION: 12/21/2017 CONSULTING PHYSICIAN: Jaret Soares M.D. REFERRING PHYSICIAN: Melanie Byrne M.D. REASON FOR CONSULTATION: Evaluation of possible urethral lesion. HISTORY OF PRESENT ILLNESS: This is a 72-year-old female. She was admitted to the hospital because of head injury because of fall. She was noted to have some bleeding in the perineal area and there was a questionable vaginal mass and gynecologic evaluation was obtained and there was a question that this may be urethral lesion. A Urology evaluation requested. I am not able to get any history from the patient, most of the history was obtained from the chart. PAST MEDICAL HISTORY: Significant for history of atrial fibrillation, CVA, and dementia. PAST SURGICAL HISTORY: G-tube, other surgeries are unknown. MEDICATIONS: Current medications in the hospital, the patient is on Norvasc, Lasix, aspirin, folate, Flomax, Lipitor, Keppra, Remeron, and heparin. ALLERGIES: No known drug allergies. SOCIAL HISTORY: Smoking history is unknown. She is a resident of [facility]. FAMILY HISTORY: Unable to obtain. Apparently, she has had some incontinence by report. Family history is unknown. PHYSICAL EXAMINATION: GENERAL: Elderly female, in no acute distress. She is well developed and well nourished. VITAL SIGNS: Temperature is 97.6 degrees, blood pressure is 162/100, pulse is 81, and respirations 20. HEENT: Normocephalic. NECK: Supple. ABDOMEN: Soft. GENITOURINARY: Reveals what appears to be a mass in the vaginal vault. The mass is palpable inside the vaginal vault. It appears to extend through the urethra. I am not able see an obvious urethral meatus. There was some bleeding on the surface of the mass. EXTREMITIES: Slightly contracted. LABORATORY AND DIAGNOSTIC DATA: BUN 22, creatinine 0.9, and potassium 4.1. White count is 8.2, hemoglobin 9.7, and platelets are 238. There is no UA during this admission. Diagnostic imaging studies, the patient had a pelvic ultrasound, which showed a heterogeneous mass lesion in the bladder concerning for malignancy. CT scan of the chest, abdomen and pelvis revealed multiple pulmonary nodules. There was also mention of renal cyst, no hydronephrosis. There was mention of a heterogeneous mass, which involves the bladder and contiguous vagina and highly concerning for malignancy with uncertain this mass is originating in the vagina or in the bladder and is inseparable from the uterine segment cervix and there was again multiple pulmonary nodules and some small pelvic lymph nodes. IMPRESSION: 1. Perineal mass, which may be gynecologic or urologic in origin, but is concerning for malignancy. 2. Urinary incontinence. 3. Probable neurogenic bladder. 4. Renal cyst. PLAN AND DISCUSSION: Again, the patient does have what appears to be a mass, which involves most of the vaginal vault and possibly extending into the bladder. Just by visual inspection, the mass does not appear to be typical, urothelial cancer, may be a squamous cell carcinoma of the vagina, which is infiltrating into the bladder. I would probably recommend pelvic exam under anesthesia with biopsy of the vaginal mass. At this time, the patient will be monitored clinically and at some point, she may need to have tertiary care. Further recommendations will be forthcoming. I did ask the nurses to check a postvoid residual, which was reported to be 145 mL by bladder scan. Thank you for this consultation. Jaret Soares M.D. DR: VENKATESH JOB#: [id number] CC:
[2017-12-22] VITALS: BP 149/95
[2017-12-22] MEDS: Morphine Sulfate 2mg/ml Inj(IV/IM USE ONLY) IVP PRN ×4 (00:01→18:30)
[2017-12-22 04:00] VITALS: BP 148/94
[2017-12-22 07:25] LABS: BASOPHILS % (AUTO) 1.3 % (0.0-2.0); EOSINOPHILS % (AUTO) 0.1 % (0.0-3.0); HEMATOCRIT 29.1 % (37.0-47.0); HEMOGLOBIN 9.1 G/DL (12.0-16.0); LYMPHOCYTES % (AUTO) 22.2 % (20.0-45.0); MEAN CORPUSCULAR VOLUME 80 FL (80-99); NEUTROPHILS % (AUTO) 64.4 % (45.0-75.0); PLATELET COUNT 214 K/UL (150-450); RED BLOOD COUNT 3.65 M/UL (4.20-5.40); RED CELL DISTRIBUTION WIDTH 17.8 % (11.6-14.8); WHITE BLOOD COUNT 8.2 K/UL (4.8-10.8)
[2017-12-22 07:57] LABS: ALANINE AMINOTRANSFERASE 24 U/L (12-78); ALBUMIN 1.9 G/DL (3.4-5.0); ALBUMIN/GLOBULIN RATIO 0.3 (1.0-2.7); ALKALINE PHOSPHATASE 118 U/L (46-116); ANION GAP 9 mmol/L (5-15); ASPARTATE AMINO TRANSFERASE 36 U/L (15-37); BILIRUBIN,TOTAL 0.4 MG/DL (0.2-1.0); BLOOD UREA NITROGEN 23 mg/dL (7-18); CALCIUM 7.9 MG/DL (8.5-10.1); CARBON DIOXIDE 24 MMOL/L (21-32); CHLORIDE 102 MMOL/L (98-107); CREATININE 1.2 MG/DL (0.55-1.30); POTASSIUM 3.7 MMOL/L (3.5-5.1); SODIUM 135 MMOL/L (136-145)
[2017-12-22 08:00] VITALS: BP 135/92
--- NOTE | 2017-12-22 08:39 | General Progress Note ---
Assessment/Plan Status: unchanged Assessment/Plan #. Heterogeneous mass lesion involving the bladder, with portions of the posterior bladder inseparable from the lower uterine segment/cervix and vagina. Findings are highly concerning for malignancy, either bladder or gynecologic ( vaginal/cervical/uterine) in etiology --> CT C/A/P with iv contrast: Heterogeneous mass lesion within the bladder, contiguous with heterogeneous mass in the vagina highly concerning for malignancy. Multiple bilateral pulmonary nodules most concerning for metastatic disease. Small pelvic lymph nodes. 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 --> tumor markers pending --> eval with uro as needed --> will likely need biopsy with with packing machine can feeder-onc or with cystocsopy with uro #. Anemia due to iron deficiency --> eval for gi bleed as need v vaginal bleed --> iron iv has been started x 5 days --> appreciate recs from Dr. Chapman (Assistant Professor Of Business) #. Dysphagia, status post gastrostomy tube. #. Chronic atrial fibrillation with history of rapid ventricular response. Rate controlled on aspirin --> anticoag once above worked up #. Hypertension, on multiple hypertensive medications. The time the note was entered does not necessarily correspond to the time the patient was seen. Subjective Date patient seen: Dec 22, 2017 ROS Limited/Unobtainable: Yes Genitourinary: Reports: hematuria Hematologic/Lymphatic: Reports: anemia Allergies: Coded Allergies: No Known Allergies (Unverified , 04/30/16) All Systems: reviewed and negative except above Subjective Pt with vaginal bleed, no clots noted. CT reviewed: Heterogeneous mass lesion within the bladder, contiguous with heterogeneous mass in the vagina highly concerning for malignancy. Objective Last 24 Hour Vital Signs Date Time Temp Pulse Resp B/P (MAP) Pulse Ox O2 Delivery O2 Flow Rate FiO2 12/22/17 06:35 98.3 12/22/17 06:05 98.3 12/22/17 04:00 98.3 106 18 148/94 (112) 97 98.3 12/22/17 04:00 99 12/22/17 00:01 97.4 12/22/17 00:00 137 12/22/17 00:00 98.1 103 18 149/95 (113) 97 98.1 12/21/17 21:42 78 18 Room Air 21 12/21/17 21:40 Room Air 12/21/17 21:00 Room Air 12/21/17 20:23 72 84/56 12/21/17 20:00 97.4 92 18 83/55 (64) 97 97.4 12/21/17 20:00 146 12/21/17 16:00 97.6 81 20 162/100 (120) 96 97.6 12/21/17 12:00 97.2 92 20 148/95 (112) 97 97.2 12/21/17 12:00 99 12/21/17 09:01 93 162/112 12/21/17 09:00 Room Air Intake and Output 12/21/17 12/22/17 19:00 07:00 Intake Total 1350 ml 1898.75 ml Balance 1350 ml 1898.75 ml Intake Free Water 90 ml 200 ml IV Total 675 ml 1158.75 ml Tube Feeding 585 ml 540 ml # Voids 3 Laboratory Tests 12/21/17 11:40: White Blood Count 8.2, Red Blood Count 3.96L, Hemoglobin 9.7L, Hematocrit 31.9L , Mean Corpuscular Volume 81, Mean Corpuscular Hemoglobin 24.5L, Mean Corpuscular Hemoglobin Concent 30.4L, Red Cell Distribution Width 18.3H, Platelet Count 238, Mean Platelet Volume 6.6, Neutrophils (%) (Auto) 61.3, Lymphocytes (%) (Auto) 27.5, Monocytes (%) (Auto) 10.6H, Eosinophils (%) (Auto) 0.3, Basophils (%) (Auto) 0.3, Sodium Level 138, Potassium Level 4.1, Chloride Level 103, Carbon Dioxide Level 28, Anion Gap 8, Blood Urea Nitrogen 23H, Creatinine 0.9, Estimat Glomerular Filtration Rate , Glucose Level 136H, Calcium Level 8.1L, Total Bilirubin 0.4, Aspartate Amino Transf (AST/SGOT) 43H, Alanine Aminotransferase (ALT/SGPT) 29, Alkaline Phosphatase 128H, Total Protein 8.1, Albumin 2.0L, Globulin 6.1, Albumin/Globulin Ratio 0.3L, Alpha Fetoprotein [Pending], Carcinoembryonic Antigen [Pending], CA 15-3 Antigen [ Pending], CA 19-9 Antigen [Pending], CA 125 Antigen [Pending], Thyroid Stimulating Hormone (TSH) 1.610, Immunoglobulin G [Pending], Immunoglobulin A [ Pending], Immunoglobulin M [Pending], Immunofixation Screen [Pending] 12/22/17 06:53: White Blood Count 8.2, Red Blood Count 3.65L, Hemoglobin 9.1L, Hematocrit 29.1L , Mean Corpuscular Volume 80, Mean Corpuscular Hemoglobin 24.9L, Mean Corpuscular Hemoglobin Concent 31.2L, Red Cell Distribution Width 17.8H, Platelet Count 214, Mean Platelet Volume 6.9, Neutrophils (%) (Auto) 64.4, Lymphocytes (%) (Auto) 22.2, Monocytes (%) (Auto) 12.0H, Eosinophils (%) (Auto) 0.1, Basophils (%) (Auto) 1.3, Sodium Level 135L, Potassium Level 3.7, Chloride Level 102, Carbon Dioxide Level 24, Anion Gap 9, Blood Urea Nitrogen 23H, Creatinine 1.2, Estimat Glomerular Filtration Rate , Glucose Level 159H, Calcium Level 7.9L, Total Bilirubin 0.4, Aspartate Amino Transf (AST/SGOT) 36, Alanine Aminotransferase (ALT/SGPT) 24, Alkaline Phosphatase 118H, Total Protein 7.6, Albumin 1.9L, Globulin 5.7, Albumin/Globulin Ratio 0.3L Height (Feet): 5 Height (Inches): 7.00 Weight (Pounds): 146 General Appearance: no apparent distress EENT: PERRL/EOMI Neck: normal alignment Cardiovascular: tachycardia Respiratory/Chest: normal breath sounds, no respiratory distress Abdomen: tender Genitourinary/Rectal: blood at urethral meatus Jerry Delarosa MD Dec 22, 2017 08:39
--- NOTE | 2017-12-22 09:06 | Cardiology Progress Note ---
Assessment/Plan Status: stable Assessment/Plan Assessment/Plan Problem List: (1) Atrial fibrillation with RVR (2) Altered mental status (3) S/P percutaneous endoscopic gastrostomy (PEG) tube placement (4) Chronic a-fib (5) Dementia (6) CHF (congestive heart failure) (7) HTN (hypertension) (8) Left atrial myoxma (9) Narrative Writer malignancy -Hold aspirin due to bleeding -Statin -Rate control with metoprolol -echocardiogram - reviewed, normal LV function, grade III diastolic dysfunction and moderate pulmonary hypertension -Spot dose diuretics to keep negative and reduce filling pressures, lasix 20 mg daily -no indication for cardioversion -Rhythm was atrial flutter vs atrial tachycardia, no anticoagulation needed -monitor BP, slowly introduce medications as needed, concern for polypharmacy and hypotension as culprit given 4 anti hypertensive medications -start norvasc 5 mg daily -supportive care -Hysteroscopy for biopsy to determine prognosis -Left atrial myoxma not seen on TTE, would need KARISSA but would not pattern changer, currently it is not encroaching on the mitral valve to be clinically significant Subjective Cardiovascular: Reports: no symptoms Respiratory: Reports: no symptoms Gastrointestinal/Abdominal: Reports: no symptoms Genitourinary: Reports: no symptoms Subjective patient is on bed asleep. no signs of acute distress noted. patient is stable, remains SR all throughout the night Heart rate controlled, vitals stable, g tube running with feeds. Continues to have vaginal bleeding CT scan confirms some malignancy with possible mets and a left atrial myxoma Objective Last 24 Hour Vital Signs Date Time Temp Pulse Resp B/P (MAP) Pulse Ox O2 Delivery O2 Flow Rate FiO2 12/22/17 06:35 98.3 12/22/17 06:05 98.3 12/22/17 04:00 98.3 106 18 148/94 (112) 97 98.3 12/22/17 04:00 99 12/22/17 00:01 97.4 12/22/17 00:00 137 12/22/17 00:00 98.1 103 18 149/95 (113) 97 98.1 12/21/17 21:42 78 18 Room Air 21 12/21/17 21:40 Room Air 12/21/17 21:00 Room Air 12/21/17 20:23 72 84/56 12/21/17 20:00 97.4 92 18 83/55 (64) 97 97.4 12/21/17 20:00 146 12/21/17 16:00 97.6 81 20 162/100 (120) 96 97.6 12/21/17 12:00 97.2 92 20 148/95 (112) 97 97.2 12/21/17 12:00 99 General Appearance: no apparent distress EENT: PERRL/EOMI Neck: non-tender Rhythm: NSR Cardiovascular: normal peripheral pulses Respiratory/Chest: chest wall non-tender Abdomen: normal bowel sounds Extremities: normal range of motion 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: chief human resources officer II-XII grossly normal Intake and Output 12/21/17 12/22/17 19:00 07:00 Intake Total 1350 ml 1898.75 ml Balance 1350 ml 1898.75 ml Intake Free Water 90 ml 200 ml IV Total 675 ml 1158.75 ml Tube Feeding 585 ml 540 ml # Voids 3 Laboratory Tests Test 12/21/17 11:40 12/22/17 06:53 White Blood Count 8.2 K/UL (4.8-10.8) 8.2 K/UL (4.8-10.8) Red Blood Count 3.96 M/UL (4.20-5.40) L 3.65 M/UL (4.20-5.40) L Hemoglobin 9.7 G/DL (12.0-16.0) L 9.1 G/DL (12.0-16.0) L Hematocrit 31.9 % (37.0-47.0) L 29.1 % (37.0-47.0) L Mean Corpuscular Volume 81 FL (80-99) 80 FL (80-99) Mean Corpuscular Hemoglobin 24.5 PG (27.0-31.0) L 24.9 PG (27.0-31.0) L Mean Corpuscular Hemoglobin Concent 30.4 G/DL (32.0-36.0) L 31.2 G/DL (32.0-36.0) L Red Cell Distribution Width 18.3 % (11.6-14.8) H 17.8 % (11.6-14.8) H Platelet Count 238 K/UL (150-450) 214 K/UL (150-450) Mean Platelet Volume 6.6 FL (6.5-10.1) 6.9 FL (6.5-10.1) Neutrophils (%) (Auto) 61.3 % (45.0-75.0) 64.4 % (45.0-75.0) Lymphocytes (%) (Auto) 27.5 % (20.0-45.0) 22.2 % (20.0-45.0) Monocytes (%) (Auto) 10.6 % (1.0-10.0) H 12.0 % (1.0-10.0) H Eosinophils (%) (Auto) 0.3 % (0.0-3.0) 0.1 % (0.0-3.0) Basophils (%) (Auto) 0.3 % (0.0-2.0) 1.3 % (0.0-2.0) Sodium Level 138 MMOL/L (136-145) 135 MMOL/L (136-145) L Potassium Level 4.1 MMOL/L (3.5-5.1) 3.7 MMOL/L (3.5-5.1) Chloride Level 103 MMOL/L (98-107) 102 MMOL/L (98-107) Carbon Dioxide Level 28 MMOL/L (21-32) 24 MMOL/L (21-32) Anion Gap 8 mmol/L (5-15) 9 mmol/L (5-15) Blood Urea Nitrogen 23 mg/dL (7-18) H 23 mg/dL (7-18) H Creatinine 0.9 MG/DL (0.55-1.30) 1.2 MG/DL (0.55-1.30) Estimat Glomerular Filtration Rate mL/min (>60) mL/min (>60) Glucose Level 136 MG/DL (74-106) H 159 MG/DL (74-106) H Calcium Level 8.1 MG/DL (8.5-10.1) L 7.9 MG/DL (8.5-10.1) L Total Bilirubin 0.4 MG/DL (0.2-1.0) 0.4 MG/DL (0.2-1.0) Aspartate Amino Transf (AST/SGOT) 43 U/L (15-37) H 36 U/L (15-37) Alanine Aminotransferase (ALT/SGPT) 29 U/L (12-78) 24 U/L (12-78) Alkaline Phosphatase 128 U/L (46-116) H 118 U/L (46-116) H Total Protein 8.1 G/DL (6.4-8.2) 7.6 G/DL (6.4-8.2) Albumin 2.0 G/DL (3.4-5.0) L 1.9 G/DL (3.4-5.0) L Globulin 6.1 g/dL 5.7 g/dL Albumin/Globulin Ratio 0.3 (1.0-2.7) L 0.3 (1.0-2.7) L Alpha Fetoprotein Pending Carcinoembryonic Antigen Pending CA 15-3 Antigen Pending CA 19-9 Antigen Pending CA 125 Antigen Pending Thyroid Stimulating Hormone (TSH) 1.610 uiU/mL (0.358-3.740) Immunoglobulin G Pending Immunoglobulin A Pending Immunoglobulin M Pending Immunofixation Screen Pending Microbiology Date/Time Source Procedure Growth Status 12/19/17 17:50 Vaginal Gram Stain - Final Resulted 12/19/17 17:50 Vaginal Neisseria gonorrhoeae Culture - Preliminary No Neisseria gonorrhoeae isolated Resulted Nikolai Brooks M.D. Dec 22, 2017 09:06
[2017-12-22] MEDS: Tamsulosin 0.4mg cap ORAL SCH (09:28)
[2017-12-22] MEDS: Metoprolol Tartrate 50mg tab ORAL SCH ×2 (09:29→20:27)
--- NOTE | 2017-12-22 09:36 | Physician Query ---
--------- THIS DOCUMENT IS A PERMANENT PART OF THE MEDICAL RECORD --------- PLEASE COMPLETE DOCUMENT BEFORE SIGNING Dear Dr. Dillard Date: 12/22/2017 Marshmallow Machine Worker/CDS Name: Chun Michele Marshmallow Machine Worker/CDS Phone No.: [phone] Exercise your independent professional judgment when responding to the query. Questions asked do not imply a particular answer is desired or expected. We greatly appreciate your clarification on this issue. CLINICAL DOCUMENTATION STATES: "Dysphagia" is documented in progress notes. Patient has PEG tube is placed. CLINICAL FINDINGS SHOW: Albumin: 1.9 -----> 2.2 Please select the most appropriate option: Severity Type [] Mild [] Protein/Calorie Malnutrition [] Moderate [] Protein Malnutrition [x] Severe Mild to Moderate Malnutrition criteria: >Serum albumin 2.8 to 3.4 g/dL or Pre-albumin 5 to 7 mg/dl (3) >Inadequate nutritional intake (1, 2, 3, 4) >NPO > 5 days >Weight loss: 5% in 1 month or 7.5% in 3 months or 10% in 6 months (1,3,4) >BMI 16 to 18.4 or Weight <90 of ideal body weight (1,2,3,4) Severe Malnutrition criteria: >Serum Albumin < 2.8 g/dL (1,2) >Lymphocytes < 1500/uL (2) >Inadequate nutritional intake3 , high stress e.g. major trauma, sepsis, pancreatitis, hernandez etc. >Decubitus ulcers (1,2) , skin breakdown(2), easy hair pluckability >Weight <80% standard for height (2) >Triceps skin fold <3 mm2 >Mid-arm muscle circumference <25 cm2 >Creatinine-height index <60% standard (2) [] Hypoalbuminemia [] Emancipated w/ Malnutrition [] Kwashiorkor (rare in [place]) [] Marasmus [] Other [] Unable to determine [] Not Applicable Condition Present on Admission: [x] Yes [] No [ ] Unable to determine Please also document in your Progress Notes and/or Discharge Summary and indicate if the condition was present on admission. Tracie BOURNE
--- NOTE | 2017-12-22 10:42 | General Progress Note ---
Progress Note Progress Note GYNECOLOGY INTERVAL PROGRESS NOTE Appreciate Urology recs. RN notified me of vaginal bleeding. Bleeding source is the vaginal mass, which per the imaging findings is concerning for malignancy extending through the vaginal wall and contiguous with the bladder. Pad moderately soaked with dark blood and some clot. Bleeding was present yesterday when I examined the patient. Her vaginal mass is friable, necrotic, and prone to bleeding with light touch. Advised to avoid touching the mass, limit exams, and initiate toño-care. VS reviewed, BP 135/92, tachycardic to 110s Exam: GEN: alert when awakened, unable to orient given lack of verbal communication. MSK: limbs contracted Perineum: diaper moderately soaked with dark blood and stool, this pad has been on for >4 hours, no heavy bright active bleeding. Vulvar mass is friable, necrotic, foul-smelling, and will bleed when manipulated. LABS: Test 12/22/17 06:53 White Blood Count 8.2 K/UL (4.8-10.8) Red Blood Count 3.65 M/UL (4.20-5.40) L Hemoglobin 9.1 G/DL (12.0-16.0) L Hematocrit 29.1 % (37.0-47.0) L Mean Corpuscular Volume 80 FL (80-99) Mean Corpuscular Hemoglobin 24.9 PG (27.0-31.0) L Mean Corpuscular Hemoglobin Concent 31.2 G/DL (32.0-36.0) L Red Cell Distribution Width 17.8 % (11.6-14.8) H Platelet Count 214 K/UL (150-450) Mean Platelet Volume 6.9 FL (6.5-10.1) Neutrophils (%) (Auto) 64.4 % (45.0-75.0) Lymphocytes (%) (Auto) 22.2 % (20.0-45.0) Monocytes (%) (Auto) 12.0 % (1.0-10.0) H Eosinophils (%) (Auto) 0.1 % (0.0-3.0) Basophils (%) (Auto) 1.3 % (0.0-2.0) Sodium Level 135 MMOL/L (136-145) L Potassium Level 3.7 MMOL/L (3.5-5.1) Chloride Level 102 MMOL/L (98-107) Carbon Dioxide Level 24 MMOL/L (21-32) Anion Gap 9 mmol/L (5-15) Blood Urea Nitrogen 23 mg/dL (7-18) H Creatinine 1.2 MG/DL (0.55-1.30) Estimat Glomerular Filtration Rate mL/min (>60) Glucose Level 159 MG/DL (74-106) H Calcium Level 7.9 MG/DL (8.5-10.1) L Total Bilirubin 0.4 MG/DL (0.2-1.0) Aspartate Amino Transf (AST/SGOT) 36 U/L (15-37) Alanine Aminotransferase (ALT/SGPT) 24 U/L (12-78) Alkaline Phosphatase 118 U/L (46-116) H Total Protein 7.6 G/DL (6.4-8.2) Albumin 1.9 G/DL (3.4-5.0) L Globulin 5.7 g/dL Albumin/Globulin Ratio 0.3 (1.0-2.7) L IMAGING: US Pelvis - Limited transabdominal pelvic ultrasound Comparison: Concurrent CT of the abdomen and pelvis. Pelvic ultrasound 2016 Findings: Limited exam as patient uncooperative and contracted. Heterogeneous mass lesion in the region of the bladder noted. A calcification is noted within the myometrium, likely uterine fibroid. IMPRESSION: Limited, incomplete exam. Heterogeneous mass lesion in the bladder concerning for malignancy. Please see report of dedicated CT of the abdomen and pelvis. CT C/A/P COMBINED IMPRESSION: * Heterogeneous mass lesion within the bladder, contiguous with heterogeneous mass in the vagina highly concerning for malignancy. Uncertain whether this represents a vaginal malignancy which extended into the bladder or bladder malignancy extending into the vagina. Portions of the mass are inseparable from the lower uterine segment/cervix. Again, recommend direct visualization with cystoscopy and/or gynecologic exam. * Multiple bilateral pulmonary nodules most concerning for metastatic disease. Nodules demonstrate interval increase in size compared to exam of 11/16/2017. * Small pelvic lymph nodes. * Cardiomegaly. 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 Correlate with echocardiogram. ASSESSMENT & PLAN: 72yo with imaging findings concerning for primary malignancy, vaginal vs cervical vs bladder malignancy although vaginal etiology most likely given findings on exam. - Given the imaging findings, the patient's inability to tolerate exam, and risk of hemorrhage with potential biopsy, I recommend transfer for higher level of care for diagnosis and management. - If this is a primary TELEVISION OPERATOR malignancy, it will need to be managed by Gynecologic Oncology, which we do not have available at our facility. - I attempted to speak with the patient's family today, but they are not available and were not present during my evaluation yesterday. - Anemia being addressed. H/H decreasing but some element of hemodilution, appreciate heme recs - Recommend toño-care, clean patient with squeeze bottle to prevent additional trauma to the vaginal lesion, do not wipe or apply pressure to the mass to prevent additional bleeding or trauma - Patient discussed with Dr. Soares (Urology) and CAR DRYER, who agree with current plan of care. Signed: MD Ari Tineo Carla M.D. Dec 22, 2017 10:42
--- NOTE | 2017-12-22 11:04 | Urology Progress Note ---
Assessment/Plan Assessment/Plan 1. Perineal mass, which may be gynecologic or urologic in origin, but is concerning for malignancy. 2. Urinary incontinence. 3. Probable neurogenic bladder. 4. 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, invading bladder will need EMR IMPLEMENTATION SPECIALIST and med/onc f/u consider pelvic exam under anesthesia with bx consider cysto monitor renal fxn, h/h anticoagulation held d/w primary service extensively d/w EMR IMPLEMENTATION SPECIALIST may need transfer to tertiary care center Subjective Allergies: Coded Allergies: No Known Allergies (Unverified , 04/30/16) Subjective all noted Objective Last 24 Hour Vital Signs Date Time Temp Pulse Resp B/P (MAP) Pulse Ox O2 Delivery O2 Flow Rate FiO2 12/22/17 09:29 110 135/92 12/22/17 08:00 97.9 83 18 135/92 (106) 96 97.9 12/22/17 06:35 98.3 12/22/17 06:05 98.3 12/22/17 04:00 98.3 106 18 148/94 (112) 97 98.3 12/22/17 04:00 99 12/22/17 00:01 97.4 12/22/17 00:00 137 12/22/17 00:00 98.1 103 18 149/95 (113) 97 98.1 12/21/17 21:42 78 18 Room Air 21 12/21/17 21:40 Room Air 12/21/17 21:00 Room Air 12/21/17 20:23 72 84/56 12/21/17 20:00 97.4 92 18 83/55 (64) 97 97.4 12/21/17 20:00 146 12/21/17 16:00 97.6 81 20 162/100 (120) 96 97.6 12/21/17 12:00 97.2 92 20 148/95 (112) 97 97.2 12/21/17 12:00 99 Intake and Output 12/21/17 12/22/17 19:00 07:00 Intake Total 1350 ml 1898.75 ml Balance 1350 ml 1898.75 ml Intake Free Water 90 ml 200 ml IV Total 675 ml 1158.75 ml Tube Feeding 585 ml 540 ml # Voids 3 Microbiology Date/Time Source Procedure Growth Status 12/19/17 17:50 Vaginal Gram Stain - Final Complete 12/19/17 17:50 Vaginal Neisseria gonorrhoeae Culture - Final No Neisseria gonorrhoeae isolated Complete 12/18/17 23:04 Nasal Nares MRSA Culture - Final NO METHICILLIN RESISTANT STAPH AUREUS... Complete 12/18/17 23:04 Rectum VRE Culture - Final Enterococcus Faecalis - Vre Complete 12/18/17 23:04 Rectum - Final NO CARBAPENEM-RESISTANT ENTEROBACTERI... Complete Current Medications Medications (Trade) Dose Ordered Sig/Renea Route PRN Reason Start Time Stop Time Status Last Admin Dose Admin Albuterol/ Ipratropium (Albuterol/ Ipratropium) 3 ml Q4H PRN HHN Shortness of Breath 12/19/17 19:45 12/24/17 19:44 Amlodipine Besylate (Norvasc) 5 mg DAILY ORAL 12/22/17 13:24 01/21/18 13:23 Atorvastatin Calcium (Lipitor) 80 mg BEDTIME ORAL 12/19/17 21:00 01/18/18 20:59 12/21/17 20:25 Barium Sulfate (Readi-Cat 2) 450 ml NOW PRN ORAL Radiology Procedure 12/21/17 12:23 Dextrose/Sodium Chloride 1,000 ml @ 75 mls/hr [id number] IV 12/19/17 02:45 01/18/18 02:44 12/21/17 22:46 Folic Acid (Folate) 1 mg DAILY ORAL 12/20/17 09:00 01/19/18 08:59 12/22/17 09:27 Furosemide (Lasix) 20 mg DAILY ORAL 12/21/17 13:45 01/20/18 13:44 12/22/17 09:27 Iopamidol (Isovue-300 100ml) 100 ml NOW PRN INJ Radiology Procedure 12/21/17 12:30 Iron Sucrose 100 mg/Sodium Chloride 60 ml @ 240 mls/hr BEDTIME IV 12/21/17 21:00 12/25/17 21:14 12/21/17 20:26 Levetiracetam (Keppra) 750 mg Q12HR NG 12/19/17 21:00 01/18/18 20:59 12/22/17 09:29 Metoprolol Tartrate (Lopressor) 50 mg Q12HR ORAL 12/19/17 09:00 01/18/18 08:59 12/22/17 09:29 Mirtazapine (Remeron) 15 mg BEDTIME ORAL 12/19/17 21:00 01/18/18 20:59 12/21/17 20:26 Morphine Sulfate (Morphine Sulfate) 2 mg Q6H PRN IVP For Pain 12/19/17 18:45 12/26/17 18:44 12/22/17 06:05 Tamsulosin HCl (Flomax) 0.4 mg DAILY ORAL 12/20/17 09:00 01/19/18 08:59 12/22/17 09:28 Laboratory Tests 12/21/17 11:40: White Blood Count 8.2, Red Blood Count 3.96L, Hemoglobin 9.7L, Hematocrit 31.9L , Mean Corpuscular Volume 81, Mean Corpuscular Hemoglobin 24.5L, Mean Corpuscular Hemoglobin Concent 30.4L, Red Cell Distribution Width 18.3H, Platelet Count 238, Mean Platelet Volume 6.6, Neutrophils (%) (Auto) 61.3, Lymphocytes (%) (Auto) 27.5, Monocytes (%) (Auto) 10.6H, Eosinophils (%) (Auto) 0.3, Basophils (%) (Auto) 0.3, Sodium Level 138, Potassium Level 4.1, Chloride Level 103, Carbon Dioxide Level 28, Anion Gap 8, Blood Urea Nitrogen 23H, Creatinine 0.9, Estimat Glomerular Filtration Rate , Glucose Level 136H, Calcium Level 8.1L, Total Bilirubin 0.4, Aspartate Amino Transf (AST/SGOT) 43H, Alanine Aminotransferase (ALT/SGPT) 29, Alkaline Phosphatase 128H, Total Protein 8.1, Albumin 2.0L, Globulin 6.1, Albumin/Globulin Ratio 0.3L, Alpha Fetoprotein [Pending], Carcinoembryonic Antigen [Pending], CA 15-3 Antigen [ Pending], CA 19-9 Antigen [Pending], CA 125 Antigen [Pending], Thyroid Stimulating Hormone (TSH) 1.610, Immunoglobulin G [Pending], Immunoglobulin A [ Pending], Immunoglobulin M [Pending], Immunofixation Screen [Pending] 12/22/17 06:53: White Blood Count 8.2, Red Blood Count 3.65L, Hemoglobin 9.1L, Hematocrit 29.1L , Mean Corpuscular Volume 80, Mean Corpuscular Hemoglobin 24.9L, Mean Corpuscular Hemoglobin Concent 31.2L, Red Cell Distribution Width 17.8H, Platelet Count 214, Mean Platelet Volume 6.9, Neutrophils (%) (Auto) 64.4, Lymphocytes (%) (Auto) 22.2, Monocytes (%) (Auto) 12.0H, Eosinophils (%) (Auto) 0.1, Basophils (%) (Auto) 1.3, Sodium Level 135L, Potassium Level 3.7, Chloride Level 102, Carbon Dioxide Level 24, Anion Gap 9, Blood Urea Nitrogen 23H, Creatinine 1.2, Estimat Glomerular Filtration Rate , Glucose Level 159H, Calcium Level 7.9L, Total Bilirubin 0.4, Aspartate Amino Transf (AST/SGOT) 36, Alanine Aminotransferase (ALT/SGPT) 24, Alkaline Phosphatase 118H, Total Protein 7.6, Albumin 1.9L, Globulin 5.7, Albumin/Globulin Ratio 0.3L Height (Feet): 5 Height (Inches): 7.00 Weight (Pounds): 146 Objective exam stable JOSH PENNINGTON Dec 22, 2017 11:04
[2017-12-22 12:00] VITALS: BP 128/80
[2017-12-22] MEDS: D5 1/2NS 1,000 ML IV SCH (12:20)
--- NOTE | 2017-12-22 13:11 | GI Initial Consult Note ---
History of Present Illness General Date patient seen: Dec 22, 2017 Time patient seen: 13:09 Reason for Hospitalization: Head Injury Referring physician: HIWOT Reason for Consultation: HIGH RISIDUALS IN GTFs Present Illness HPI Patient is a 72-year-old female have presented after a witnessed fall. Patient was noted to have prior history of atrial fibrillation. Patient was noted to have fallen onto a nightstand. The patient was not noted to have lost consciousness. Patient had prior history of CVA as well as dementia. History is markedly limited by patient's metal status. Patient is G-tube dependent. GI consulted for reported high residuals in GTFs. ROS limited, pt seen awake NAD with no active s/sx of N/V/D. Per RN report of high residuals, GTF feedings currently held. Noted to be on Jevity 1.2 with goal rate of 55 cc/hr. GT site assesed, C/D/I. Presents with anemia and hypoalbuminemia. Home Meds Active Scripts Levofloxacin* (LEVAQUIN*) 500 Mg Tablet, 500 MG ORAL DAILY for 7 Days, #7 TAB 0 Refills via PEG Prov:Agapito Butler M.D. 08/10/17 Ampicillin (Ampicillin Trihydrate) 250 Mg Capsule, 500 MG PO QID for 7 Days, # 28 CAP via PEG Prov:Agapito Butler M.D. 08/10/17 Levetiracetam (Levetiracetam) 500 Mg Tablet, 750 MG NG Q12HR for 90 Days, TAB Prov:Agapito Butler M.D. 06/02/17 Tamsulosin HCl (Flomax) 0.4 Mg Cap.er.24h, 0.4 MG ORAL DAILY for 30 Days, CAP Prov:Agapito Butler M.D. 06/02/17 Aspirin* (ASPIRIN*) 81 Mg Tab.chew, 81 MG NG DAILY for 90 Days, TAB Prov:Agapito Butler M.D. 06/02/17 Nifedipine Xl* (PROCARDIA XL*) 30 Mg Tab.er.24, 30 MG ORAL Q12HR for 90 Days, TAB Prov:Agapito Butler M.D. 05/19/17 Metoprolol Tartrate* (METOPROLOL TARTRATE*) 50 Mg Tablet, 50 MG ORAL Q12HR for 90 Days, TAB Prov:Agapito Butler M.D. 05/19/17 Reported Medications Cranberry Fruit (CRANBERRY) 400 Mg Tablet, 400 MG GT, TAB 11/16/17 Valsartan (DIOVAN) 80 Mg Tab, 80 MG ORAL DAILY, TAB 11/19/16 Trazodone* (TRAZODONE*) 150 Mg Tablet, 12.5 MG ORAL BEDTIME, TAB 11/19/16 Sulfasalazine* (AZULFIDINE*) 500 Mg Tablet, 500 MG ORAL BEFORE MEALS, TAB 11/19/16 Mirtazapine* (REMERON*) 15 Mg Tablet, 15 MG ORAL BEDTIME, TAB 11/19/16 Paroxetine Hcl* (PAXIL*) 20 Mg Tablet, 20 MG ORAL DAILY, TAB 0 Refills 11/19/16 Omeprazole (OMEPRAZOLE) 20 Mg Capsule.dr, 20 MG ORAL DAILY, CAP 11/19/16 Nifedipine (Nifedipine*) 20 Mg Capsule, 30 MG ORAL EVERY 12 HOURS, CAP 11/19/16 Metoprolol Tartrate* (METOPROLOL TARTRATE*) 50 Mg Tablet, 50 MG ORAL EVERY 12 HOURS, TAB 11/19/16 Methotrexate Sodium* (METHOTREXATE*) 2.5 Mg Tablet, 2.5 MG PO, TAB 11/19/16 Atorvastatin Calcium* (LIPITOR*) 80 Mg Tablet, 80 MG ORAL BEDTIME, TAB 11/19/16 Hydralazine Hcl* (HYDRALAZINE HCL*) 10 Mg Tablet, 10 MG ORAL EVERY 6 HOURS, TAB 11/19/16 Folic Acid* (FOLIC ACID*) 1 Mg Tablet, 1 MG ORAL DAILY, TAB 11/19/16 Acetaminophen* (ACETAMINOPHEN 325MG TABLET*) 325 Mg Tablet, 650 MG ORAL Q4H PRN for For Pain, TAB 11/19/16 Med list reviewed/reconciled: Yes Allergies: Coded Allergies: No Known Allergies (Unverified , 04/30/16) Patient History PMH Narrative Past Medical History: No History, Except For Hx Cardiac Problems: Yes - ESBL resistant, A-fib Hx Hypertension: Yes Hx Cancer: No Hx Gastrointestinal Problems: Yes - G-tube Hx Neurological Problems: Yes - mentia Hx Cerebrovascular Accident: Yes - TIA Hx Dementia: Yes Hx Seizures: Yes Social History: Denies: smoking, alcohol use, drug use, other Review of Systems All Other Systems: limited Physical Exam Vital Signs Date Time Temp Pulse Resp B/P (MAP) Pulse Ox O2 Delivery O2 Flow Rate FiO2 12/18/17 19:15 98.8 127 20 137/87 96 Room Air 98.8 12/20/17 06:36 21 Sp02 EP Interpretation: reviewed, normal Labs Laboratory Tests Test 12/22/17 06:53 White Blood Count 8.2 K/UL (4.8-10.8) Red Blood Count 3.65 M/UL (4.20-5.40) L Hemoglobin 9.1 G/DL (12.0-16.0) L Hematocrit 29.1 % (37.0-47.0) L Mean Corpuscular Volume 80 FL (80-99) Mean Corpuscular Hemoglobin 24.9 PG (27.0-31.0) L Mean Corpuscular Hemoglobin Concent 31.2 G/DL (32.0-36.0) L Red Cell Distribution Width 17.8 % (11.6-14.8) H Platelet Count 214 K/UL (150-450) Mean Platelet Volume 6.9 FL (6.5-10.1) Neutrophils (%) (Auto) 64.4 % (45.0-75.0) Lymphocytes (%) (Auto) 22.2 % (20.0-45.0) Monocytes (%) (Auto) 12.0 % (1.0-10.0) H Eosinophils (%) (Auto) 0.1 % (0.0-3.0) Basophils (%) (Auto) 1.3 % (0.0-2.0) Sodium Level 135 MMOL/L (136-145) L Potassium Level 3.7 MMOL/L (3.5-5.1) Chloride Level 102 MMOL/L (98-107) Carbon Dioxide Level 24 MMOL/L (21-32) Anion Gap 9 mmol/L (5-15) Blood Urea Nitrogen 23 mg/dL (7-18) H Creatinine 1.2 MG/DL (0.55-1.30) Estimat Glomerular Filtration Rate mL/min (>60) Glucose Level 159 MG/DL (74-106) H Calcium Level 7.9 MG/DL (8.5-10.1) L Total Bilirubin 0.4 MG/DL (0.2-1.0) Aspartate Amino Transf (AST/SGOT) 36 U/L (15-37) Alanine Aminotransferase (ALT/SGPT) 24 U/L (12-78) Alkaline Phosphatase 118 U/L (46-116) H Total Protein 7.6 G/DL (6.4-8.2) Albumin 1.9 G/DL (3.4-5.0) L Globulin 5.7 g/dL Albumin/Globulin Ratio 0.3 (1.0-2.7) L General Appearance: no apparent distress Head: normocephalic EENT: PERRL/EOMI, normal ENT inspection Neck: supple Respiratory: normal breath sounds, no respiratory distress Cardiovascular: normal rate Gastrointestinal: normal inspection, non tender, soft, normal bowel sounds, non -distended, gt - c/d/i Rectal: deferred Genitourinary: no CVA tenderness Musculoskeletal: normal inspection, back normal Neurologic: alert, responsive Skin: normal inspection, normal color, no rash, warm/dry, palpation normal, well hydrated Lymphatic: normal inspection, no adenopathy Current Medications Current Medications Medications (Trade) Dose Ordered Sig/Renea Route PRN Reason Start Time Stop Time Status Last Admin Dose Admin Albuterol/ Ipratropium (Albuterol/ Ipratropium) 3 ml Q4H PRN HHN Shortness of Breath 12/19/17 19:45 12/24/17 19:44 Amlodipine Besylate (Norvasc) 5 mg DAILY ORAL 12/22/17 13:24 01/21/18 13:23 Atorvastatin Calcium (Lipitor) 80 mg BEDTIME ORAL 12/19/17 21:00 01/18/18 20:59 12/21/17 20:25 Barium Sulfate (Readi-Cat 2) 450 ml NOW PRN ORAL Radiology Procedure 12/21/17 12:23 Dextrose/Sodium Chloride 1,000 ml @ 75 mls/hr [id number] IV 12/19/17 02:45 01/18/18 02:44 12/22/17 12:20 Folic Acid (Folate) 1 mg DAILY ORAL 12/20/17 09:00 01/19/18 08:59 12/22/17 09:27 Furosemide (Lasix) 20 mg DAILY ORAL 12/21/17 13:45 01/20/18 13:44 12/22/17 09:27 Iopamidol (Isovue-300 100ml) 100 ml NOW PRN INJ Radiology Procedure 12/21/17 12:30 Iron Sucrose 100 mg/Sodium Chloride 60 ml @ 240 mls/hr BEDTIME IV 12/21/17 21:00 12/25/17 21:14 12/21/17 20:26 Levetiracetam (Keppra) 750 mg Q12HR NG 12/19/17 21:00 01/18/18 20:59 12/22/17 09:29 Metoprolol Tartrate (Lopressor) 50 mg Q12HR ORAL 12/19/17 09:00 01/18/18 08:59 12/22/17 09:29 Mirtazapine (Remeron) 15 mg BEDTIME ORAL 12/19/17 21:00 01/18/18 20:59 12/21/17 20:26 Morphine Sulfate (Morphine Sulfate) 2 mg Q6H PRN IVP For Pain 12/19/17 18:45 12/26/17 18:44 12/22/17 12:19 Tamsulosin HCl (Flomax) 0.4 mg DAILY ORAL 12/20/17 09:00 01/19/18 08:59 12/22/17 09:28 GI: Plan Problems: (1) Anemia (2) Severe malnutrition (3) Dehydration (4) S/P percutaneous endoscopic gastrostomy (PEG) tube placement (5) Dysphagia Plan supportive care trial reglan 10mg IV ATC restart feeding tonight consider GTF change to Osmolite if residuals still high GT site care prn ppi fu labs Discussed with Dr. Man. Thank you for this patient referral, we will follow. The patient was seen and examined at bedside and all new and available data was reviewed in the patients chart. I agree with the above findings, impression and plan. (Patient seen earlier today. Signature stamp does not reflect patient encounter time.). - MD Florencia PathakSan Carlos Apache Tribe Healthcare CorporationEnriqueClem [employer] Dec 22, 2017 13:11
[2017-12-22] MEDS: Metoclopramide 10mg/2ml Inj IVP SCH ×2 (14:04→22:30)
[2017-12-22] MEDS ORDERED: LORazepam Inj 2mg/ml 1ml IM SCH (15:00)
[2017-12-22] MEDS ORDERED: DiphenhydrAMINE 50mg/ml Inj IM SCH (15:00)
--- NOTE | 2017-12-22 15:07 | General Progress Note ---
Assessment/Plan Status: stable, progressing Assessment/Plan MDD Anxiety d/o Vascular Dementia seroquel 25mg q 6hr/prn/anxiety Subjective Date patient seen: Dec 22, 2017 Neurologic/Psychiatric: Reports: anxiety, depressed, emotional problems Allergies: Coded Allergies: No Known Allergies (Unverified , 04/30/16) Subjective the pt is agitated and uncooperative with exam. the pt is confused Objective Last 24 Hour Vital Signs Date Time Temp Pulse Resp B/P (MAP) Pulse Ox O2 Delivery O2 Flow Rate FiO2 12/22/17 14:04 101 128/80 12/22/17 12:00 101 12/22/17 12:00 98.1 85 20 128/80 (96) 100 98.1 12/22/17 09:29 110 135/92 12/22/17 09:00 Nasal Cannula 2.0 12/22/17 08:00 97.9 83 18 135/92 (106) 96 97.9 12/22/17 08:00 129 12/22/17 07:55 83 18 Room Air 21 12/22/17 06:35 98.3 12/22/17 06:05 98.3 12/22/17 04:00 98.3 106 18 148/94 (112) 97 98.3 12/22/17 04:00 99 12/22/17 00:01 97.4 12/22/17 00:00 137 12/22/17 00:00 98.1 103 18 149/95 (113) 97 98.1 12/21/17 21:42 78 18 Room Air 21 12/21/17 21:40 Room Air 12/21/17 21:00 Room Air 12/21/17 20:23 72 84/56 12/21/17 20:00 97.4 92 18 83/55 (64) 97 97.4 12/21/17 20:00 146 12/21/17 16:00 97.6 81 20 162/100 (120) 96 97.6 Intake and Output 12/21/17 12/22/17 19:00 07:00 Intake Total 1350 ml 1898.75 ml Balance 1350 ml 1898.75 ml Intake Free Water 90 ml 200 ml IV Total 675 ml 1158.75 ml Tube Feeding 585 ml 540 ml # Voids 3 Laboratory Tests 12/22/17 06:53: White Blood Count 8.2, Red Blood Count 3.65L, Hemoglobin 9.1L, Hematocrit 29.1L , Mean Corpuscular Volume 80, Mean Corpuscular Hemoglobin 24.9L, Mean Corpuscular Hemoglobin Concent 31.2L, Red Cell Distribution Width 17.8H, Platelet Count 214, Mean Platelet Volume 6.9, Neutrophils (%) (Auto) 64.4, Lymphocytes (%) (Auto) 22.2, Monocytes (%) (Auto) 12.0H, Eosinophils (%) (Auto) 0.1, Basophils (%) (Auto) 1.3, Sodium Level 135L, Potassium Level 3.7, Chloride Level 102, Carbon Dioxide Level 24, Anion Gap 9, Blood Urea Nitrogen 23H, Creatinine 1.2, Estimat Glomerular Filtration Rate , Glucose Level 159H, Calcium Level 7.9L, Total Bilirubin 0.4, Aspartate Amino Transf (AST/SGOT) 36, Alanine Aminotransferase (ALT/SGPT) 24, Alkaline Phosphatase 118H, Total Protein 7.6, Albumin 1.9L, Globulin 5.7, Albumin/Globulin Ratio 0.3L Height (Feet): 5 Height (Inches): 7.00 Weight (Pounds): 146 General Appearance: alert, confused, severe distress, agitated Kunal Tse MD Dec 22, 2017 15:07
[2017-12-22 16:00] VITALS: BP 124/70
[2017-12-22 20:00] VITALS: BP 116/68
[2017-12-22] MEDS: Iron Sucrose 100 MG in NS 55 ML IV SCH (20:26)
[2017-12-22] MEDS: Atorvastatin 80mg tab ORAL SCH (20:28)
--- NOTE | 2017-12-22 22:30 | General Progress Note ---
Assessment/Plan Problem List: (1) Dysphagia ICD Codes: R13.10 - Dysphagia, unspecified SNOMED: 43667836, 052373230 (2) Seizure disorder ICD Codes: G40.909 - Epilepsy, unspecified, not intractable, without status epilepticus SNOMED: 915100173 (3) Vaginal bleeding ICD Codes: N93.9 - Abnormal uterine and vaginal bleeding, unspecified SNOMED: 880744033, 330301261 (4) HLD (hyperlipidemia) ICD Codes: E78.5 - Hyperlipidemia, unspecified SNOMED: 02213814 (5) H/O: CVA (cerebrovascular accident) ICD Codes: Z86.73 - Personal history of transient ischemic attack (TIA), and cerebral infarction without residual deficits SNOMED: 558131197 (6) lives at snf (7) Atrial fibrillation with RVR ICD Codes: I48.91 - Unspecified atrial fibrillation SNOMED: 157068577212133 (8) Laceration of forehead ICD Codes: S01.81XA - Laceration without foreign body of other part of head, initial encounter SNOMED: 676607406, 666997252 (9) Head contusion ICD Codes: S00.93XA - Contusion of unspecified part of head, initial encounter SNOMED: 854974382, 670368766 (10) Dementia ICD Codes: F03.90 - Unspecified dementia without behavioral disturbance SNOMED: 38786680 (11) HTN (hypertension) ICD Codes: I10 - Essential (primary) hypertension SNOMED: 86484027 (12) S/P percutaneous endoscopic gastrostomy (PEG) tube placement ICD Codes: Z93.1 - Gastrostomy status SNOMED: 213124983 (13) Fall ICD Codes: W19.XXXA - Unspecified fall, initial encounter SNOMED: 5174732, 370647931 (14) Atrial flutter ICD Codes: I48.92 - Unspecified atrial flutter SNOMED: 5987832 (15) Pulmonary nodule ICD Codes: R91.1 - Solitary pulmonary nodule SNOMED: 898550981 (16) Vaginal mass ICD Codes: N89.9 - Noninflammatory disorder of vagina, unspecified SNOMED: 111345869 Status: stable, progressing Assessment/Plan - appreciate cards recs and mgt - appreciate OBGYN rec's - appreciate urology rec's - appreciate oncology recs - GI consulted for high residuals with Gtube feeding - hold G-tube feeds until eval with GI - f/u stat CT chest/abdomen/pelvis w/o contrast -- multiple pulmonary nodules concerning for metastasis. also with vaginal mass - f/u tumor markers - serial tn neg - asa, statin - bb - monitor H/H - supportive care Per OBGYN, patient needs biopsy of the vaginal mass but unable to perform this at [facility]. Discussed case with OBGYN oncology at [facility] but refusing transfer/ admission. Spoke to CM for transfer to [facility] for further eval as patient is not stable to be discharged home given vaginal bleeding and no [employer] follow up. Also, discussed with CM to setup outpatient follow up with [employer] and oncology. d/w son, Isiah. Per son, no history of cancer DVT ppx: SCD's CODE STATUS: Full Anticipate pt will require 3-4 days of inpatient mgt, anticipate discharge to SNF, [facility] 40 min spent on this case and 23 min dedicated to counseling and or care coordination. Time of note may not reflect time of clinical encounter. Subjective Date patient seen: Dec 22, 2017 Allergies: Coded Allergies: No Known Allergies (Unverified , 04/30/16) Subjective - CT chest/abdomen/pelvis reviewed and noted with multiple pulmonary nodules and vaginal mass - seen by urology and OBGYN - continues to have vaginal bleeding. Hgb stable - having increased residuals from G-tube feeding Objective Last 24 Hour Vital Signs Date Time Temp Pulse Resp B/P (MAP) Pulse Ox O2 Delivery O2 Flow Rate FiO2 12/22/17 20:27 72 20 Room Air 21 12/22/17 20:27 70 116/68 12/22/17 20:00 97.9 70 20 116/68 (84) 100 97.9 12/22/17 20:00 125 12/22/17 16:00 114 12/22/17 16:00 98.2 59 18 124/70 (88) 100 98.2 12/22/17 14:04 101 128/80 12/22/17 12:00 101 12/22/17 12:00 98.1 85 20 128/80 (96) 100 98.1 12/22/17 09:29 110 135/92 12/22/17 09:00 Nasal Cannula 2.0 12/22/17 08:00 97.9 83 18 135/92 (106) 96 97.9 12/22/17 08:00 129 12/22/17 07:55 83 18 Room Air 21 12/22/17 06:35 98.3 12/22/17 06:05 98.3 12/22/17 04:00 98.3 106 18 148/94 (112) 97 98.3 12/22/17 04:00 99 12/22/17 00:01 97.4 12/22/17 00:00 137 12/22/17 00:00 98.1 103 18 149/95 (113) 97 98.1 Intake and Output 12/21/17 12/22/17 19:00 07:00 Intake Total 1350 ml 1898.75 ml Balance 1350 ml 1898.75 ml Intake Free Water 90 ml 200 ml IV Total 675 ml 1158.75 ml Tube Feeding 585 ml 540 ml # Voids 3 Laboratory Tests 12/22/17 06:53: White Blood Count 8.2, Red Blood Count 3.65L, Hemoglobin 9.1L, Hematocrit 29.1L , Mean Corpuscular Volume 80, Mean Corpuscular Hemoglobin 24.9L, Mean Corpuscular Hemoglobin Concent 31.2L, Red Cell Distribution Width 17.8H, Platelet Count 214, Mean Platelet Volume 6.9, Neutrophils (%) (Auto) 64.4, Lymphocytes (%) (Auto) 22.2, Monocytes (%) (Auto) 12.0H, Eosinophils (%) (Auto) 0.1, Basophils (%) (Auto) 1.3, Sodium Level 135L, Potassium Level 3.7, Chloride Level 102, Carbon Dioxide Level 24, Anion Gap 9, Blood Urea Nitrogen 23H, Creatinine 1.2, Estimat Glomerular Filtration Rate , Glucose Level 159H, Calcium Level 7.9L, Total Bilirubin 0.4, Aspartate Amino Transf (AST/SGOT) 36, Alanine Aminotransferase (ALT/SGPT) 24, Alkaline Phosphatase 118H, Total Protein 7.6, Albumin 1.9L, Globulin 5.7, Albumin/Globulin Ratio 0.3L Height (Feet): 5 Height (Inches): 7.00 Weight (Pounds): 146 General Appearance: no apparent distress, alert EENT: PERRL/EOMI, normal ENT inspection Neck: non-tender, normal alignment, supple Cardiovascular: normal peripheral pulses, normal rate, regular rhythm Respiratory/Chest: chest wall non-tender, lungs clear, normal breath sounds Abdomen: normal bowel sounds, non tender, soft, other - PEG Genitourinary/Rectal: other - vaginal mass with bleeding Extremities: normal range of motion, non-tender Neurologic: assurance senior manager II-XII grossly normal, no motor/sensory deficits, alert Hattie Sow NP Dec 22, 2017 22:30
[2017-12-23] VITALS: BP 146/84
[2017-12-23] MEDS: D5 1/2NS 1,000 ML IV SCH ×2 (00:05→03:31)
[2017-12-23 04:00] VITALS: BP 129/76
[2017-12-23] MEDS: Metoclopramide 10mg/2ml Inj IVP SCH ×2 (05:35→13:51)
[2017-12-23 07:38] LABS: BASOPHILS % (AUTO) 0.8 % (0.0-2.0); EOSINOPHILS % (AUTO) 0.3 % (0.0-3.0); HEMOGLOBIN 8.1 G/DL (12.0-16.0); LYMPHOCYTES % (AUTO) 22.3 % (20.0-45.0); MEAN CORPUSCULAR VOLUME 81 FL (80-99); MONOCYTES % (AUTO) 12.5 % (1.0-10.0); PLATELET COUNT 205 K/UL (150-450); RED BLOOD COUNT 3.22 M/UL (4.20-5.40); RED CELL DISTRIBUTION WIDTH 18.8 % (11.6-14.8)
[2017-12-23 07:58] LABS: ANION GAP 9 mmol/L (5-15); BLOOD UREA NITROGEN 25 mg/dL (7-18); CALCIUM 8.5 MG/DL (8.5-10.1); CARBON DIOXIDE 25 MMOL/L (21-32); CHLORIDE 104 MMOL/L (98-107); CREATININE 1.5 MG/DL (0.55-1.30); SODIUM 138 MMOL/L (136-145)
[2017-12-23 08:00] VITALS: BP 115/64
[2017-12-23] MEDS: Tamsulosin 0.4mg cap ORAL SCH (09:19)
[2017-12-23] MEDS: levETIRAcetam 500mg/5ml Liquid NG SCH ×2 (09:19→20:45)
[2017-12-23] MEDS: Metoprolol Tartrate 50mg tab ORAL SCH ×2 (09:20→21:59)
--- NOTE | 2017-12-23 09:35 | Urology Progress Note ---
Assessment/Plan Assessment/Plan 1. Perineal mass, which may be gynecologic or urologic in origin, but is concerning for malignancy. 2. Urinary incontinence. 3. Probable neurogenic bladder. 4. 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, invading bladder will need [employer] INSPECTOR and med/onc f/u consider pelvic exam under anesthesia with bx consider cysto monitor renal fxn, h/h transfusion PRN anticoagulation held d/w primary service extensively d/w [employer] INSPECTOR may need transfer to tertiary care center Subjective Allergies: Coded Allergies: No Known Allergies (Unverified , 04/30/16) Subjective all noted, less vaginal bleeding reported, urinary incontinence Objective Last 24 Hour Vital Signs Date Time Temp Pulse Resp B/P (MAP) Pulse Ox O2 Delivery O2 Flow Rate FiO2 12/23/17 09:20 94 115/64 12/23/17 09:20 94 115/64 12/23/17 08:00 97.9 94 20 115/64 (81) 96 97.9 12/23/17 07:20 76 20 Nasal Cannula 2.0 28 12/23/17 04:00 75 12/23/17 04:00 97.4 66 23 129/76 (93) 100 97.4 12/23/17 00:00 88 12/23/17 00:00 97.5 86 20 146/84 (104) 97 97.5 12/22/17 21:00 Nasal Cannula 2.0 12/22/17 20:27 72 20 Room Air 21 12/22/17 20:27 70 116/68 12/22/17 20:00 97.9 70 20 116/68 (84) 100 97.9 12/22/17 20:00 125 12/22/17 16:00 114 12/22/17 16:00 98.2 59 18 124/70 (88) 100 98.2 12/22/17 14:04 101 128/80 12/22/17 12:00 101 12/22/17 12:00 98.1 85 20 128/80 (96) 100 98.1 Intake and Output 12/22/17 12/23/17 19:00 07:00 Intake Total 640 ml Balance 640 ml Intake Free Water 100 ml Tube Feeding 540 ml # Bowel Movements 2 Laboratory Tests 12/23/17 06:42: White Blood Count 10.0, Red Blood Count 3.22L, Hemoglobin 8.1L, Hematocrit 26.0L , Mean Corpuscular Volume 81, Mean Corpuscular Hemoglobin 25.1L, Mean Corpuscular Hemoglobin Concent 31.1L, Red Cell Distribution Width 18.8H, Platelet Count 205, Mean Platelet Volume 7.0, Neutrophils (%) (Auto) 64.0, Lymphocytes (%) (Auto) 22.3, Monocytes (%) (Auto) 12.5H, Eosinophils (%) (Auto) 0.3, Basophils (%) (Auto) 0.8, Sodium Level 138, Potassium Level 4.0, Chloride Level 104, Carbon Dioxide Level 25, Anion Gap 9, Blood Urea Nitrogen 25H, Creatinine 1.5H, Estimat Glomerular Filtration Rate , Glucose Level 142H, Calcium Level 8.5 Height (Feet): 5 Height (Inches): 7.00 Weight (Pounds): 153 Objective exam stable JOSH PENNINGTON Dec 23, 2017 09:35
--- NOTE | 2017-12-23 11:16 | General Progress Note ---
Assessment/Plan Status: unchanged Assessment/Plan MDD Anxiety d/o Vascular Dementia seroquel 25mg q 6hr/prn/anxiety Subjective Date patient seen: Dec 23, 2017 Neurologic/Psychiatric: Reports: anxiety, depressed, emotional problems Allergies: Coded Allergies: No Known Allergies (Unverified , 04/30/16) Subjective the pt is agitated and uncooperative with exam. the pt is confused Objective Last 24 Hour Vital Signs Date Time Temp Pulse Resp B/P (MAP) Pulse Ox O2 Delivery O2 Flow Rate FiO2 12/23/17 09:20 94 115/64 12/23/17 09:20 94 115/64 12/23/17 09:00 Nasal Cannula 2.0 12/23/17 08:00 97.9 94 20 115/64 (81) 96 97.9 12/23/17 08:00 98 12/23/17 07:20 76 20 Nasal Cannula 2.0 28 12/23/17 04:00 75 12/23/17 04:00 97.4 66 23 129/76 (93) 100 97.4 12/23/17 00:00 88 12/23/17 00:00 97.5 86 20 146/84 (104) 97 97.5 12/22/17 21:00 Nasal Cannula 2.0 12/22/17 20:27 72 20 Room Air 21 12/22/17 20:27 70 116/68 12/22/17 20:00 97.9 70 20 116/68 (84) 100 97.9 12/22/17 20:00 125 12/22/17 16:00 114 12/22/17 16:00 98.2 59 18 124/70 (88) 100 98.2 12/22/17 14:04 101 128/80 12/22/17 12:00 101 12/22/17 12:00 98.1 85 20 128/80 (96) 100 98.1 Intake and Output 12/22/17 12/23/17 19:00 07:00 Intake Total 640 ml Balance 640 ml Intake Free Water 100 ml Tube Feeding 540 ml # Bowel Movements 2 Laboratory Tests 12/23/17 06:42: White Blood Count 10.0, Red Blood Count 3.22L, Hemoglobin 8.1L, Hematocrit 26.0L , Mean Corpuscular Volume 81, Mean Corpuscular Hemoglobin 25.1L, Mean Corpuscular Hemoglobin Concent 31.1L, Red Cell Distribution Width 18.8H, Platelet Count 205, Mean Platelet Volume 7.0, Neutrophils (%) (Auto) 64.0, Lymphocytes (%) (Auto) 22.3, Monocytes (%) (Auto) 12.5H, Eosinophils (%) (Auto) 0.3, Basophils (%) (Auto) 0.8, Sodium Level 138, Potassium Level 4.0, Chloride Level 104, Carbon Dioxide Level 25, Anion Gap 9, Blood Urea Nitrogen 25H, Creatinine 1.5H, Estimat Glomerular Filtration Rate , Glucose Level 142H, Calcium Level 8.5 Height (Feet): 5 Height (Inches): 7.00 Weight (Pounds): 153 General Appearance: no apparent distress, alert, confused, agitated Kunal Tse MD Dec 23, 2017 11:16
--- NOTE | 2017-12-23 11:41 | GI Progress Note ---
Assessment/Plan Problems: (1) S/P percutaneous endoscopic gastrostomy (PEG) tube placement ICD Codes: Z93.1 - Gastrostomy status SNOMED: 506319392 (2) Anemia ICD Codes: D64.9 - Anemia, unspecified SNOMED: 289136755 (3) Dehydration ICD Codes: E86.0 - Dehydration SNOMED: 14901294 Status: progressing Status Narrative Discussed with Dr. Man. Assessment/Plan supportive care GTFs per RD, pt tolerating feeding with no residual cont reglan 10mg IV ATC consider GTF change to Osmolite if residuals still high GT site care prn ppi fu labs The patient was seen and examined at bedside and all new and available data was reviewed in the patients chart. I agree with the above findings, impression and plan. (Patient seen earlier today. Signature stamp does not reflect patient encounter time.). - Ko Man MD Subjective Subjective limited Objective Last 24 Hour Vital Signs Date Time Temp Pulse Resp B/P (MAP) Pulse Ox O2 Delivery O2 Flow Rate FiO2 12/23/17 09:20 94 115/64 12/23/17 09:20 94 115/64 12/23/17 09:00 Nasal Cannula 2.0 12/23/17 08:00 97.9 94 20 115/64 (81) 96 97.9 12/23/17 08:00 98 12/23/17 07:20 76 20 Nasal Cannula 2.0 28 12/23/17 04:00 75 12/23/17 04:00 97.4 66 23 129/76 (93) 100 97.4 12/23/17 00:00 88 12/23/17 00:00 97.5 86 20 146/84 (104) 97 97.5 12/22/17 21:00 Nasal Cannula 2.0 12/22/17 20:27 72 20 Room Air 21 12/22/17 20:27 70 116/68 12/22/17 20:00 97.9 70 20 116/68 (84) 100 97.9 12/22/17 20:00 125 12/22/17 16:00 114 12/22/17 16:00 98.2 59 18 124/70 (88) 100 98.2 12/22/17 14:04 101 128/80 12/22/17 12:00 101 12/22/17 12:00 98.1 85 20 128/80 (96) 100 98.1 Intake and Output 12/22/17 12/23/17 19:00 07:00 Intake Total 640 ml Balance 640 ml Intake Free Water 100 ml Tube Feeding 540 ml # Bowel Movements 2 Laboratory Tests Test 12/23/17 06:42 White Blood Count 10.0 K/UL (4.8-10.8) Red Blood Count 3.22 M/UL (4.20-5.40) L Hemoglobin 8.1 G/DL (12.0-16.0) L Hematocrit 26.0 % (37.0-47.0) L Mean Corpuscular Volume 81 FL (80-99) Mean Corpuscular Hemoglobin 25.1 PG (27.0-31.0) L Mean Corpuscular Hemoglobin Concent 31.1 G/DL (32.0-36.0) L Red Cell Distribution Width 18.8 % (11.6-14.8) H Platelet Count 205 K/UL (150-450) Mean Platelet Volume 7.0 FL (6.5-10.1) Neutrophils (%) (Auto) 64.0 % (45.0-75.0) Lymphocytes (%) (Auto) 22.3 % (20.0-45.0) Monocytes (%) (Auto) 12.5 % (1.0-10.0) H Eosinophils (%) (Auto) 0.3 % (0.0-3.0) Basophils (%) (Auto) 0.8 % (0.0-2.0) Sodium Level 138 MMOL/L (136-145) Potassium Level 4.0 MMOL/L (3.5-5.1) Chloride Level 104 MMOL/L (98-107) Carbon Dioxide Level 25 MMOL/L (21-32) Anion Gap 9 mmol/L (5-15) Blood Urea Nitrogen 25 mg/dL (7-18) H Creatinine 1.5 MG/DL (0.55-1.30) H Estimat Glomerular Filtration Rate mL/min (>60) Glucose Level 142 MG/DL (74-106) H Calcium Level 8.5 MG/DL (8.5-10.1) Height (Feet): 5 Height (Inches): 7.00 Weight (Pounds): 153 General Appearance: WD/WN, no apparent distress, alert Cardiovascular: normal rate Respiratory/Chest: normal breath sounds, no respiratory distress Abdominal Exam: normal bowel sounds, non tender, soft, GT site - c/d/i Extremities: normal range of motion, non-tender Garth Don NP Dec 23, 2017 11:41
[2017-12-23 12:00] VITALS: BP 112/72
--- NOTE | 2017-12-23 14:41 | Cardiology Progress Note ---
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 -Hold aspirin due to bleeding -Statin -Rate control with metoprolol 75 mg TID, can not cardiovert due to inability to anticoagulate and bleeding risk -echocardiogram - reviewed, normal LV function, grade III diastolic dysfunction and moderate pulmonary hypertension -Spot dose diuretics to keep negative and reduce filling pressures, lasix 20 mg daily -Rhythm was atrial flutter vs atrial tachycardia, no anticoagulation needed in this rhythm -monitor BP, slowly introduce medications as needed, concern for polypharmacy and hypotension as culprit given 4 anti hypertensive medications -continue norvasc 5 mg daily for now -supportive care -Hysteroscopy for biopsy to determine prognosis - transfer to [facility] -Left atrial myoxma not seen on TTE, would need KARISSA but would not drying rack changer, currently it is not encroaching on the mitral valve to be clinically significant Subjective Cardiovascular: Reports: no symptoms Respiratory: Reports: no symptoms Gastrointestinal/Abdominal: Reports: no symptoms Genitourinary: Reports: no symptoms Subjective patient is on bed asleep. no signs of acute distress noted. patient is stable, remains SR all throughout the night Heart rate controlled, vitals stable, g tube running with feeds. Continues to have vaginal bleeding CT scan confirms some malignancy with possible mets and a left atrial myxoma Plan to to transfer to [facility] for department chair work up Objective Last 24 Hour Vital Signs Date Time Temp Pulse Resp B/P (MAP) Pulse Ox O2 Delivery O2 Flow Rate FiO2 12/23/17 12:00 97.2 110 20 112/72 (85) 95 97.2 12/23/17 09:20 94 115/64 12/23/17 09:20 94 115/64 12/23/17 09:00 Nasal Cannula 2.0 12/23/17 08:00 97.9 94 20 115/64 (81) 96 97.9 12/23/17 08:00 98 12/23/17 07:20 76 20 Nasal Cannula 2.0 28 12/23/17 04:00 75 12/23/17 04:00 97.4 66 23 129/76 (93) 100 97.4 12/23/17 00:00 88 12/23/17 00:00 97.5 86 20 146/84 (104) 97 97.5 12/22/17 21:00 Nasal Cannula 2.0 12/22/17 20:27 72 20 Room Air 21 12/22/17 20:27 70 116/68 12/22/17 20:00 97.9 70 20 116/68 (84) 100 97.9 12/22/17 20:00 125 12/22/17 16:00 114 12/22/17 16:00 98.2 59 18 124/70 (88) 100 98.2 General Appearance: no apparent distress EENT: PERRL/EOMI Neck: non-tender Rhythm: ST, Afib Cardiovascular: normal peripheral pulses Respiratory/Chest: chest wall non-tender Abdomen: non tender Extremities: normal range of motion Neurologic: calender runner II-XII grossly normal Intake and Output 12/22/17 12/23/17 19:00 07:00 Intake Total 640 ml Balance 640 ml Intake Free Water 100 ml Tube Feeding 540 ml # Bowel Movements 2 Laboratory Tests Test 12/23/17 06:42 White Blood Count 10.0 K/UL (4.8-10.8) Red Blood Count 3.22 M/UL (4.20-5.40) L Hemoglobin 8.1 G/DL (12.0-16.0) L Hematocrit 26.0 % (37.0-47.0) L Mean Corpuscular Volume 81 FL (80-99) Mean Corpuscular Hemoglobin 25.1 PG (27.0-31.0) L Mean Corpuscular Hemoglobin Concent 31.1 G/DL (32.0-36.0) L Red Cell Distribution Width 18.8 % (11.6-14.8) H Platelet Count 205 K/UL (150-450) Mean Platelet Volume 7.0 FL (6.5-10.1) Neutrophils (%) (Auto) 64.0 % (45.0-75.0) Lymphocytes (%) (Auto) 22.3 % (20.0-45.0) Monocytes (%) (Auto) 12.5 % (1.0-10.0) H Eosinophils (%) (Auto) 0.3 % (0.0-3.0) Basophils (%) (Auto) 0.8 % (0.0-2.0) Sodium Level 138 MMOL/L (136-145) Potassium Level 4.0 MMOL/L (3.5-5.1) Chloride Level 104 MMOL/L (98-107) Carbon Dioxide Level 25 MMOL/L (21-32) Anion Gap 9 mmol/L (5-15) Blood Urea Nitrogen 25 mg/dL (7-18) H Creatinine 1.5 MG/DL (0.55-1.30) H Estimat Glomerular Filtration Rate mL/min (>60) Glucose Level 142 MG/DL (74-106) H Calcium Level 8.5 MG/DL (8.5-10.1) Nikolai Brooks M.D. Dec 23, 2017 14:41
--- NOTE | 2017-12-23 15:04 | General Progress Note ---
Assessment/Plan Problem List: (1) Dysphagia ICD Codes: R13.10 - Dysphagia, unspecified SNOMED: 43648039, 413036034 (2) Seizure disorder ICD Codes: G40.909 - Epilepsy, unspecified, not intractable, without status epilepticus SNOMED: 785882351 (3) Vaginal bleeding ICD Codes: N93.9 - Abnormal uterine and vaginal bleeding, unspecified SNOMED: 637092931, 470733361 (4) HLD (hyperlipidemia) ICD Codes: E78.5 - Hyperlipidemia, unspecified SNOMED: 22948994 (5) H/O: CVA (cerebrovascular accident) ICD Codes: Z86.73 - Personal history of transient ischemic attack (TIA), and cerebral infarction without residual deficits SNOMED: 610317882 (6) lives at snf (7) Atrial fibrillation with RVR ICD Codes: I48.91 - Unspecified atrial fibrillation SNOMED: 808219630634303 (8) Laceration of forehead ICD Codes: S01.81XA - Laceration without foreign body of other part of head, initial encounter SNOMED: 156785682, 831903112 (9) Head contusion ICD Codes: S00.93XA - Contusion of unspecified part of head, initial encounter SNOMED: 274518074, 690943019 (10) Dementia ICD Codes: F03.90 - Unspecified dementia without behavioral disturbance SNOMED: 84927570 (11) HTN (hypertension) ICD Codes: I10 - Essential (primary) hypertension SNOMED: 77638844 (12) S/P percutaneous endoscopic gastrostomy (PEG) tube placement ICD Codes: Z93.1 - Gastrostomy status SNOMED: 139969928 (13) Fall ICD Codes: W19.XXXA - Unspecified fall, initial encounter SNOMED: 2593113, 702578986 (14) Atrial flutter ICD Codes: I48.92 - Unspecified atrial flutter SNOMED: 7402013 (15) Pulmonary nodule ICD Codes: R91.1 - Solitary pulmonary nodule SNOMED: 555754143 (16) Vaginal mass ICD Codes: N89.9 - Noninflammatory disorder of vagina, unspecified SNOMED: 622510802 (17) SUNNY (acute kidney injury) ICD Codes: N17.9 - Acute kidney failure, unspecified SNOMED: 36560326 Status: stable, progressing Assessment/Plan - appreciate cards recs and mgt - appreciate OBGYN rec's - appreciate urology rec's - appreciate oncology recs - GI consulted for high residuals with Gtube feeding, appreciate rec's - on ATC reglan to increase GI motility. patient tolerating feeds at 45 cc/hr with 10cc residuals. Will decrease dosage and change reglan to prn for gastric residuals given SUNNY. No erythromycin given arythmia risk - f/u stat CT chest/abdomen/pelvis w/o contrast -- multiple pulmonary nodules concerning for metastasis. also with vaginal mass - f/u tumor markers - serial tn neg - asa, statin - bb - monitor H/H - supportive care Per OBGYN, patient needs biopsy of the vaginal mass but unable to perform this at [facility]. Discussed case with OBGYN oncology at [facility] but refusing transfer/ admission. Spoke to CM for transfer to [facility] for further eval as patient is not stable to be discharged home given vaginal bleeding and no BABY FORMULA MIXER follow up. Also, discussed with CM to setup outpatient follow up with BABY FORMULA MIXER and oncology. d/w son, Isiah. Per son, no history of cancer. Son agreeable for transfer. Patient does not have the capacity to make her decisions given advanced dementia. DVT ppx: SCD's CODE STATUS: Full Anticipate pt will require 3-4 days of inpatient mgt, anticipate discharge to SNF, L[facility] [place] 40 min spent on this case and 23 min dedicated to counseling and or care coordination. Time of note may not reflect time of clinical encounter. Subjective Date patient seen: Dec 23, 2017 Allergies: Coded Allergies: No Known Allergies (Unverified , 04/30/16) Subjective - awaiting transfer to [facility] - Hgb downtrended to 8 - Cr uptrending - tolerating tube feeds at 45 cc/hr with reglan ATC - minimal bleeding from vaginal area today - atrial flutter in the 130s hr Objective Last 24 Hour Vital Signs Date Time Temp Pulse Resp B/P (MAP) Pulse Ox O2 Delivery O2 Flow Rate FiO2 12/23/17 12:00 97.2 110 20 112/72 (85) 95 97.2 12/23/17 12:00 109 12/23/17 09:20 94 115/64 12/23/17 09:20 94 115/64 12/23/17 09:00 Nasal Cannula 2.0 12/23/17 08:00 97.9 94 20 115/64 (81) 96 97.9 12/23/17 08:00 98 12/23/17 07:20 76 20 Nasal Cannula 2.0 28 12/23/17 04:00 75 12/23/17 04:00 97.4 66 23 129/76 (93) 100 97.4 12/23/17 00:00 88 12/23/17 00:00 97.5 86 20 146/84 (104) 97 97.5 12/22/17 21:00 Nasal Cannula 2.0 12/22/17 20:27 72 20 Room Air 21 12/22/17 20:27 70 116/68 12/22/17 20:00 97.9 70 20 116/68 (84) 100 97.9 12/22/17 20:00 125 12/22/17 16:00 114 12/22/17 16:00 98.2 59 18 124/70 (88) 100 98.2 Intake and Output 12/22/17 12/23/17 19:00 07:00 Intake Total 640 ml Balance 640 ml Intake Free Water 100 ml Tube Feeding 540 ml # Bowel Movements 2 Laboratory Tests 12/23/17 06:42: White Blood Count 10.0, Red Blood Count 3.22L, Hemoglobin 8.1L, Hematocrit 26.0L , Mean Corpuscular Volume 81, Mean Corpuscular Hemoglobin 25.1L, Mean Corpuscular Hemoglobin Concent 31.1L, Red Cell Distribution Width 18.8H, Platelet Count 205, Mean Platelet Volume 7.0, Neutrophils (%) (Auto) 64.0, Lymphocytes (%) (Auto) 22.3, Monocytes (%) (Auto) 12.5H, Eosinophils (%) (Auto) 0.3, Basophils (%) (Auto) 0.8, Sodium Level 138, Potassium Level 4.0, Chloride Level 104, Carbon Dioxide Level 25, Anion Gap 9, Blood Urea Nitrogen 25H, Creatinine 1.5H, Estimat Glomerular Filtration Rate , Glucose Level 142H, Calcium Level 8.5 Height (Feet): 5 Height (Inches): 7.00 Weight (Pounds): 153 General Appearance: no apparent distress, alert EENT: PERRL/EOMI, normal ENT inspection Neck: non-tender, normal alignment, supple Cardiovascular: normal peripheral pulses, normal rate, regular rhythm Respiratory/Chest: chest wall non-tender, lungs clear, normal breath sounds Abdomen: normal bowel sounds, non tender, soft, other - PEG Genitourinary/Rectal: other - minimal bleed from vagina Extremities: normal range of motion, non-tender Neurologic: alert Skin: normal pigmentation, warm/dry Hattie Sow NP Dec 23, 2017 15:04
[2017-12-23] MEDS ORDERED: Metoclopramide 10mg/10ml Liq NG PRN (15:15)
[2017-12-23 16:00] VITALS: BP 133/100
--- NOTE | 2017-12-23 17:59 | General Progress Note ---
Assessment/Plan Status: unchanged Assessment/Plan #. Heterogeneous mass lesion involving the bladder, with portions of the posterior bladder inseparable from the lower uterine segment/cervix and vagina. Findings are highly concerning for malignancy, either bladder or gynecologic ( vaginal/cervical/uterine) in etiology --> CT C/A/P with iv contrast: Heterogeneous mass lesion within the bladder, contiguous with heterogeneous mass in the vagina highly concerning for malignancy. Multiple bilateral pulmonary nodules most concerning for metastatic disease. Small pelvic lymph nodes. 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 --> tumor markers pending --> eval with uro as needed --> will likely need biopsy with with claim approver-onc or with cystocsopy with uro #. Anemia due to iron deficiency --> eval for gi bleed as need v vaginal bleed --> iron iv has been started x 5 days --> appreciate recs from Dr. Chapman (System Trainer) #. Dysphagia, status post gastrostomy tube. #. Chronic atrial fibrillation with history of rapid ventricular response. Rate controlled on aspirin --> anticoag once above worked up #. Hypertension, on multiple hypertensive medications. The time the note was entered does not necessarily correspond to the time the patient was seen. Subjective Date patient seen: Dec 23, 2017 ROS Limited/Unobtainable: Yes Hematologic/Lymphatic: Reports: anemia Allergies: Coded Allergies: No Known Allergies (Unverified , 04/30/16) All Systems: reviewed and negative except above Subjective Pt awake and alert. No acute events. Awaiting transfer to [facility] for HLOC. Objective Last 24 Hour Vital Signs Date Time Temp Pulse Resp B/P (MAP) Pulse Ox O2 Delivery O2 Flow Rate FiO2 12/23/17 16:00 107 12/23/17 16:00 97.3 116 20 133/100 (111) 95 97.3 12/23/17 12:00 97.2 110 20 112/72 (85) 95 97.2 12/23/17 12:00 109 12/23/17 09:20 94 115/64 12/23/17 09:20 94 115/64 12/23/17 09:00 Nasal Cannula 2.0 12/23/17 08:00 97.9 94 20 115/64 (81) 96 97.9 12/23/17 08:00 98 12/23/17 07:20 76 20 Nasal Cannula 2.0 28 12/23/17 04:00 75 12/23/17 04:00 97.4 66 23 129/76 (93) 100 97.4 12/23/17 00:00 88 12/23/17 00:00 97.5 86 20 146/84 (104) 97 97.5 12/22/17 21:00 Nasal Cannula 2.0 12/22/17 20:27 72 20 Room Air 21 12/22/17 20:27 70 116/68 12/22/17 20:00 97.9 70 20 116/68 (84) 100 97.9 12/22/17 20:00 125 Intake and Output 12/22/17 12/23/17 19:00 07:00 Intake Total 640 ml Balance 640 ml Intake Free Water 100 ml Tube Feeding 540 ml # Bowel Movements 2 Laboratory Tests 12/23/17 06:42: White Blood Count 10.0, Red Blood Count 3.22L, Hemoglobin 8.1L, Hematocrit 26.0L , Mean Corpuscular Volume 81, Mean Corpuscular Hemoglobin 25.1L, Mean Corpuscular Hemoglobin Concent 31.1L, Red Cell Distribution Width 18.8H, Platelet Count 205, Mean Platelet Volume 7.0, Neutrophils (%) (Auto) 64.0, Lymphocytes (%) (Auto) 22.3, Monocytes (%) (Auto) 12.5H, Eosinophils (%) (Auto) 0.3, Basophils (%) (Auto) 0.8, Sodium Level 138, Potassium Level 4.0, Chloride Level 104, Carbon Dioxide Level 25, Anion Gap 9, Blood Urea Nitrogen 25H, Creatinine 1.5H, Estimat Glomerular Filtration Rate , Glucose Level 142H, Calcium Level 8.5 Height (Feet): 5 Height (Inches): 7.00 Weight (Pounds): 153 General Appearance: no apparent distress EENT: PERRL/EOMI Neck: normal alignment Cardiovascular: tachycardia Respiratory/Chest: no respiratory distress Abdomen: tender Jerry Delarosa MD Dec 23, 2017 17:59
[2017-12-23] MEDS: Morphine Sulfate 2mg/ml Inj(IV/IM USE ONLY) IVP PRN (18:13)
[2017-12-23 20:00] VITALS: BP_SYST 112; BP_SYST 125; BP_DIAS 69; BP_DIAS 73
[2017-12-23] MEDS: Iron Sucrose 100 MG in NS 55 ML IV SCH (20:44)
[2017-12-23] MEDS: Atorvastatin 80mg tab ORAL SCH (20:45)
[2017-12-24] VITALS (7 sets, daily range): BP systolic 111–139; BP diastolic 69–79
[2017-12-24] MEDS: D5 1/2NS 1,000 ML IV SCH ×2 (02:08→16:32)
[2017-12-24] MEDS: Metoprolol Tartrate 50mg tab ORAL SCH ×3 (05:33→21:24)
[2017-12-24 07:39] LABS: EOSINOPHILS % (AUTO) 0.6 % (0.0-3.0); HEMATOCRIT 25.7 % (37.0-47.0); HEMOGLOBIN 8.1 G/DL (12.0-16.0); LYMPHOCYTES % (AUTO) 16.3 % (20.0-45.0); MEAN CORPUSCULAR VOLUME 81 FL (80-99); MONOCYTES % (AUTO) 13.8 % (1.0-10.0); NEUTROPHILS % (AUTO) 68.4 % (45.0-75.0); PLATELET COUNT 220 K/UL (150-450); RED BLOOD COUNT 3.17 M/UL (4.20-5.40); RED CELL DISTRIBUTION WIDTH 19.7 % (11.6-14.8); WHITE BLOOD COUNT 11.1 K/UL (4.8-10.8)
[2017-12-24 08:10] LABS: ALANINE AMINOTRANSFERASE 20 U/L (12-78); ALBUMIN 1.7 G/DL (3.4-5.0); ALBUMIN/GLOBULIN RATIO 0.3 (1.0-2.7); ALKALINE PHOSPHATASE 120 U/L (46-116); ANION GAP 11 mmol/L (5-15); ASPARTATE AMINO TRANSFERASE 42 U/L (15-37); BILIRUBIN,TOTAL 0.5 MG/DL (0.2-1.0); BLOOD UREA NITROGEN 31 mg/dL (7-18); CALCIUM 7.8 MG/DL (8.5-10.1); CARBON DIOXIDE 22 MMOL/L (21-32); CHLORIDE 102 MMOL/L (98-107); POTASSIUM 4.5 MMOL/L (3.5-5.1); SODIUM 135 MMOL/L (136-145)
[2017-12-24] MEDS: Tamsulosin 0.4mg cap ORAL SCH (08:53)
[2017-12-24] MEDS: levETIRAcetam 500mg/5ml Liquid NG SCH ×2 (08:53→21:25)
--- NOTE | 2017-12-24 12:25 | General Progress Note ---
Assessment/Plan Status: not improved, unchanged Assessment/Plan #. Heterogeneous mass lesion involving the bladder, with portions of the posterior bladder inseparable from the lower uterine segment/cervix and vagina. Findings are highly concerning for malignancy, either bladder or gynecologic ( vaginal/cervical/uterine) in etiology --> CT C/A/P with iv contrast: Heterogeneous mass lesion within the bladder, contiguous with heterogeneous mass in the vagina highly concerning for malignancy. Multiple bilateral pulmonary nodules most concerning for metastatic disease. Small pelvic lymph nodes. 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 --> tumor markers pending --> eval with uro as needed --> will likely need biopsy with with body hanger-onc or with cystocsopy with uro #. Anemia due to iron deficiency --> eval for gi bleed as need v vaginal bleed --> iron iv has been started x 5 days --> appreciate recs from Dr. Chapman (Brakes Inspector) #. Dysphagia, status post gastrostomy tube. #. Chronic atrial fibrillation with history of rapid ventricular response. Rate controlled on aspirin --> anticoag once above worked up #. Hypertension, on multiple hypertensive medications. The time the note was entered does not necessarily correspond to the time the patient was seen. Subjective Date patient seen: Dec 24, 2017 ROS Limited/Unobtainable: Yes Genitourinary: Reports: pain, other Hematologic/Lymphatic: Reports: anemia Allergies: Coded Allergies: No Known Allergies (Unverified , 04/30/16) All Systems: reviewed and negative except above Subjective Pt obtunded. No acute events. Awaiting transfer to [facility]. Objective Last 24 Hour Vital Signs Date Time Temp Pulse Resp B/P (MAP) Pulse Ox O2 Delivery O2 Flow Rate FiO2 12/24/17 12:00 97.3 95 20 131/77 (95) 100 97.3 12/24/17 09:00 Nasal Cannula 2.0 12/24/17 08:54 85 117/71 12/24/17 08:00 97.9 85 18 117/71 (86) 100 97.9 12/24/17 08:00 97 12/24/17 05:33 88 111/71 12/24/17 04:00 88 12/24/17 04:00 97.9 91 18 111/71 (84) 95 97.9 12/24/17 00:00 97.3 95 18 112/69 (83) 97 97.3 12/24/17 00:00 88 12/23/17 21:59 133 125/73 12/23/17 21:00 Nasal Cannula 2.0 12/23/17 20:00 97.7 101 20 125/73 (90) 93 97.7 12/23/17 20:00 133 12/23/17 19:47 101 20 Room Air 21 12/23/17 18:43 97.3 12/23/17 18:13 97.3 12/23/17 16:00 107 12/23/17 16:00 97.3 116 20 133/100 (111) 95 97.3 Intake and Output 12/23/17 12/24/17 19:00 07:00 Intake Total 1470 ml Balance 1470 ml Intake Free Water 150 ml IV Total 825 ml Tube Feeding 495 ml # Voids 7 2 # Bowel Movements 4 2 Laboratory Tests 12/24/17 07:01: White Blood Count 11.1H, Red Blood Count 3.17L, Hemoglobin 8.1L, Hematocrit 25.7L, Mean Corpuscular Volume 81, Mean Corpuscular Hemoglobin 25.5L, Mean Corpuscular Hemoglobin Concent 31.5L, Red Cell Distribution Width 19.7H, Platelet Count 220, Mean Platelet Volume 6.7, Neutrophils (%) (Auto) 68.4, Lymphocytes (%) (Auto) 16.3L, Monocytes (%) (Auto) 13.8H, Eosinophils (%) (Auto ) 0.6, Basophils (%) (Auto) 1.0, Sodium Level 135L, Potassium Level 4.5, Chloride Level 102, Carbon Dioxide Level 22, Anion Gap 11, Blood Urea Nitrogen 31H, Creatinine 2.0H, Estimat Glomerular Filtration Rate , Glucose Level 129H, Calcium Level 7.8L, Total Bilirubin 0.5, Aspartate Amino Transf (AST/SGOT) 42H, Alanine Aminotransferase (ALT/SGPT) 20, Alkaline Phosphatase 120H, Total Protein 7.2, Albumin 1.7L, Globulin 5.5, Albumin/Globulin Ratio 0.3L Height (Feet): 5 Height (Inches): 7.00 Weight (Pounds): 151 General Appearance: no apparent distress, lethargic EENT: PERRL/EOMI Neck: normal alignment Cardiovascular: normal peripheral pulses Respiratory/Chest: no respiratory distress Abdomen: tender Jerry Delarosa MD Dec 24, 2017 12:25
--- NOTE | 2017-12-24 12:39 | Urology Progress Note ---
Assessment/Plan Assessment/Plan 1. Perineal mass, which may be gynecologic or urologic in origin, but is concerning for malignancy. 2. Urinary incontinence. 3. Probable neurogenic bladder. 4. Renal cyst. 5. SUNNY. 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, invading bladder will need CLOSING MACHINE OPERATOR and med/onc f/u consider pelvic exam under anesthesia with bx will prob need pruitt plan for cysto, poss tomorrow monitor renal fxn, h/h transfusion PRN anticoagulation held d/w primary service extensively d/w CLOSING MACHINE OPERATOR may need transfer to tertiary care center d/w pt's son Subjective Allergies: Coded Allergies: No Known Allergies (Unverified , 04/30/16) Subjective all noted, less vaginal bleeding reported, urinary incontinence Objective Last 24 Hour Vital Signs Date Time Temp Pulse Resp B/P (MAP) Pulse Ox O2 Delivery O2 Flow Rate FiO2 12/24/17 12:00 97.3 95 20 131/77 (95) 100 97.3 12/24/17 09:00 Nasal Cannula 2.0 12/24/17 08:54 85 117/71 12/24/17 08:00 97.9 85 18 117/71 (86) 100 97.9 12/24/17 08:00 97 12/24/17 05:33 88 111/71 12/24/17 04:00 88 12/24/17 04:00 97.9 91 18 111/71 (84) 95 97.9 12/24/17 00:00 97.3 95 18 112/69 (83) 97 97.3 12/24/17 00:00 88 12/23/17 21:59 133 125/73 12/23/17 21:00 Nasal Cannula 2.0 12/23/17 20:00 97.7 101 20 125/73 (90) 93 97.7 12/23/17 20:00 133 12/23/17 19:47 101 20 Room Air 21 12/23/17 18:43 97.3 12/23/17 18:13 97.3 12/23/17 16:00 107 12/23/17 16:00 97.3 116 20 133/100 (111) 95 97.3 Intake and Output 12/23/17 12/24/17 19:00 07:00 Intake Total 1470 ml Balance 1470 ml Intake Free Water 150 ml IV Total 825 ml Tube Feeding 495 ml # Voids 7 2 # Bowel Movements 4 2 Microbiology Date/Time Source Procedure Growth Status 12/19/17 17:50 Vaginal Gram Stain - Final Complete 12/19/17 17:50 Vaginal Neisseria gonorrhoeae Culture - Final No Neisseria gonorrhoeae isolated Complete 12/18/17 23:04 Nasal Nares MRSA Culture - Final NO METHICILLIN RESISTANT STAPH AUREUS... Complete 12/18/17 23:04 Rectum VRE Culture - Final Enterococcus Faecalis - Vre Complete 12/18/17 23:04 Rectum - Final NO CARBAPENEM-RESISTANT ENTEROBACTERI... Complete Current Medications Medications (Trade) Dose Ordered Sig/Renea Route PRN Reason Start Time Stop Time Status Last Admin Dose Admin Albuterol/ Ipratropium (Albuterol/ Ipratropium) 3 ml Q4H PRN HHN Shortness of Breath 12/19/17 19:45 12/24/17 19:44 Amlodipine Besylate (Norvasc) 5 mg DAILY ORAL 12/22/17 13:24 01/21/18 13:23 12/24/17 08:54 Atorvastatin Calcium (Lipitor) 80 mg BEDTIME ORAL 12/19/17 21:00 01/18/18 20:59 12/23/17 20:45 Barium Sulfate (Readi-Cat 2) 450 ml NOW PRN ORAL Radiology Procedure 12/21/17 12:23 Dextrose/Sodium Chloride 1,000 ml @ 75 mls/hr [id number] IV 12/19/17 02:45 01/18/18 02:44 12/24/17 02:08 Folic Acid (Folate) 1 mg DAILY ORAL 12/20/17 09:00 01/19/18 08:59 12/24/17 08:53 Furosemide (Lasix) 20 mg DAILY ORAL 12/21/17 13:45 01/20/18 13:44 12/24/17 08:54 Iopamidol (Isovue-300 100ml) 100 ml NOW PRN INJ Radiology Procedure 12/21/17 12:30 Iron Sucrose 100 mg/Sodium Chloride 60 ml @ 240 mls/hr BEDTIME IV 12/21/17 21:00 12/25/17 21:14 12/23/17 20:44 Levetiracetam (Keppra) 750 mg Q12HR NG 12/23/17 09:11 01/22/18 09:10 12/24/17 08:53 Metoclopramide HCl (Reglan) 5 mg Q6H PRN NG for gastric residuals >50cc 12/23/17 15:15 01/22/18 15:14 Metoprolol Tartrate (Lopressor) 75 mg EVERY 8 HOURS ORAL 12/23/17 22:00 01/18/18 08:59 12/24/17 05:33 Mirtazapine (Remeron) 15 mg BEDTIME ORAL 12/19/17 21:00 01/18/18 20:59 12/23/17 20:44 Morphine Sulfate (Morphine Sulfate) 2 mg Q6H PRN IVP For Pain 12/19/17 18:45 12/26/17 18:44 12/23/17 18:13 Quetiapine Fumarate (SEROquel) 25 mg Q6H PRN ORAL agitation 12/22/17 15:15 01/21/18 15:14 12/23/17 18:29 Tamsulosin HCl (Flomax) 0.4 mg DAILY ORAL 12/20/17 09:00 01/19/18 08:59 12/24/17 08:53 Laboratory Tests 12/24/17 07:01: White Blood Count 11.1H, Red Blood Count 3.17L, Hemoglobin 8.1L, Hematocrit 25.7L, Mean Corpuscular Volume 81, Mean Corpuscular Hemoglobin 25.5L, Mean Corpuscular Hemoglobin Concent 31.5L, Red Cell Distribution Width 19.7H, Platelet Count 220, Mean Platelet Volume 6.7, Neutrophils (%) (Auto) 68.4, Lymphocytes (%) (Auto) 16.3L, Monocytes (%) (Auto) 13.8H, Eosinophils (%) (Auto ) 0.6, Basophils (%) (Auto) 1.0, Sodium Level 135L, Potassium Level 4.5, Chloride Level 102, Carbon Dioxide Level 22, Anion Gap 11, Blood Urea Nitrogen 31H, Creatinine 2.0H, Estimat Glomerular Filtration Rate , Glucose Level 129H, Calcium Level 7.8L, Total Bilirubin 0.5, Aspartate Amino Transf (AST/SGOT) 42H, Alanine Aminotransferase (ALT/SGPT) 20, Alkaline Phosphatase 120H, Total Protein 7.2, Albumin 1.7L, Globulin 5.5, Albumin/Globulin Ratio 0.3L Height (Feet): 5 Height (Inches): 7.00 Weight (Pounds): 151 Objective exam stable JOSH PENNINGTON Dec 24, 2017 12:39
--- NOTE | 2017-12-24 12:43 | Diagnostic Imaging Report ---
APPROVED REPORT CPT Code: 55991 Present Symptoms Comments: BILATERAL LEGS PAIN. BILATERAL: Imaging reveals a patent deep venous system bilaterally. There is no evidence of thrombus within the femoral, popliteal or tibial segments. The greater saphenous veins are also within normal limits. Doppler indicates normal spontaneous flow within these segments.
--- NOTE | 2017-12-24 13:13 | General Progress Note ---
Assessment/Plan Status: unchanged Assessment/Plan MDD Anxiety d/o Vascular Dementia seroquel 25mg q 6hr/prn/anxiety Subjective Date patient seen: Dec 24, 2017 Neurologic/Psychiatric: Reports: anxiety, depressed, emotional problems Allergies: Coded Allergies: No Known Allergies (Unverified , 04/30/16) Subjective the pt is agitated and confused Objective Last 24 Hour Vital Signs Date Time Temp Pulse Resp B/P (MAP) Pulse Ox O2 Delivery O2 Flow Rate FiO2 12/24/17 12:00 97.3 95 20 131/77 (95) 100 97.3 12/24/17 09:00 Nasal Cannula 2.0 12/24/17 08:54 85 117/71 12/24/17 08:00 97.9 85 18 117/71 (86) 100 97.9 12/24/17 08:00 97 12/24/17 07:05 88 18 Room Air 21 12/24/17 05:33 88 111/71 12/24/17 04:00 88 12/24/17 04:00 97.9 91 18 111/71 (84) 95 97.9 12/24/17 00:00 97.3 95 18 112/69 (83) 97 97.3 12/24/17 00:00 88 12/23/17 21:59 133 125/73 12/23/17 21:00 Nasal Cannula 2.0 12/23/17 20:00 97.7 101 20 125/73 (90) 93 97.7 12/23/17 20:00 133 12/23/17 19:47 101 20 Room Air 21 12/23/17 18:43 97.3 12/23/17 18:13 97.3 12/23/17 16:00 107 12/23/17 16:00 97.3 116 20 133/100 (111) 95 97.3 Intake and Output 12/23/17 12/24/17 19:00 07:00 Intake Total 1470 ml Balance 1470 ml Intake Free Water 150 ml IV Total 825 ml Tube Feeding 495 ml # Voids 7 2 # Bowel Movements 4 2 Laboratory Tests 12/24/17 07:01: White Blood Count 11.1H, Red Blood Count 3.17L, Hemoglobin 8.1L, Hematocrit 25.7L, Mean Corpuscular Volume 81, Mean Corpuscular Hemoglobin 25.5L, Mean Corpuscular Hemoglobin Concent 31.5L, Red Cell Distribution Width 19.7H, Platelet Count 220, Mean Platelet Volume 6.7, Neutrophils (%) (Auto) 68.4, Lymphocytes (%) (Auto) 16.3L, Monocytes (%) (Auto) 13.8H, Eosinophils (%) (Auto ) 0.6, Basophils (%) (Auto) 1.0, Sodium Level 135L, Potassium Level 4.5, Chloride Level 102, Carbon Dioxide Level 22, Anion Gap 11, Blood Urea Nitrogen 31H, Creatinine 2.0H, Estimat Glomerular Filtration Rate , Glucose Level 129H, Calcium Level 7.8L, Total Bilirubin 0.5, Aspartate Amino Transf (AST/SGOT) 42H, Alanine Aminotransferase (ALT/SGPT) 20, Alkaline Phosphatase 120H, Total Protein 7.2, Albumin 1.7L, Globulin 5.5, Albumin/Globulin Ratio 0.3L Height (Feet): 5 Height (Inches): 7.00 Weight (Pounds): 151 General Appearance: no apparent distress, alert, confused, agitated Kunal Tse MD Dec 24, 2017 13:13
--- NOTE | 2017-12-24 13:49 | General Progress Note ---
Assessment/Plan Problem List: (1) Dysphagia ICD Codes: R13.10 - Dysphagia, unspecified SNOMED: 81704216, 534880609 (2) Seizure disorder ICD Codes: G40.909 - Epilepsy, unspecified, not intractable, without status epilepticus SNOMED: 054884542 (3) Vaginal bleeding ICD Codes: N93.9 - Abnormal uterine and vaginal bleeding, unspecified SNOMED: 468869115, 121464331 (4) HLD (hyperlipidemia) ICD Codes: E78.5 - Hyperlipidemia, unspecified SNOMED: 06019712 (5) H/O: CVA (cerebrovascular accident) ICD Codes: Z86.73 - Personal history of transient ischemic attack (TIA), and cerebral infarction without residual deficits SNOMED: 856579966 (6) lives at snf (7) Atrial fibrillation with RVR ICD Codes: I48.91 - Unspecified atrial fibrillation SNOMED: 829742752925380 (8) Laceration of forehead ICD Codes: S01.81XA - Laceration without foreign body of other part of head, initial encounter SNOMED: 360297234, 493605271 (9) Head contusion ICD Codes: S00.93XA - Contusion of unspecified part of head, initial encounter SNOMED: 956599777, 369065117 (10) Dementia ICD Codes: F03.90 - Unspecified dementia without behavioral disturbance SNOMED: 74583066 (11) HTN (hypertension) ICD Codes: I10 - Essential (primary) hypertension SNOMED: 14601192 (12) S/P percutaneous endoscopic gastrostomy (PEG) tube placement ICD Codes: Z93.1 - Gastrostomy status SNOMED: 757022277 (13) Fall ICD Codes: W19.XXXA - Unspecified fall, initial encounter SNOMED: 8421350, 799746864 (14) Atrial flutter ICD Codes: I48.92 - Unspecified atrial flutter SNOMED: 4101555 (15) Pulmonary nodule ICD Codes: R91.1 - Solitary pulmonary nodule SNOMED: 615242287 (16) Vaginal mass ICD Codes: N89.9 - Noninflammatory disorder of vagina, unspecified SNOMED: 956821031 (17) SUNNY (acute kidney injury) ICD Codes: N17.9 - Acute kidney failure, unspecified SNOMED: 03631267 Status: stable, progressing Assessment/Plan - appreciate cards recs and mgt - appreciate OBGYN rec's - appreciate urology rec's - appreciate oncology recs - GI consulted for high residuals with Gtube feeding, appreciate rec's - Cr uptrending. Check UA with urine cx. Likely urinary retention causing SUNNY. Urology to d/w son regarding emergent cystoscopy and pruitt placement - WBC uptrending. Will check UA with urine cx, CXR, blood cultures. Will start her on empiric IV ceftriaxone. - on ATC reglan to increase GI motility. patient tolerating feeds at 45 cc/hr with 10cc residuals. Will decrease dosage and change reglan to prn for gastric residuals given SUNNY. No erythromycin given arythmia risk - f/u stat CT chest/abdomen/pelvis w/o contrast -- multiple pulmonary nodules concerning for metastasis. also with vaginal mass - f/u tumor markers - serial tn neg - asa, statin - bb - monitor H/H - supportive care Per OBGYN, patient needs biopsy of the vaginal mass but unable to perform this at [facility]. Placed patient on transfer list to [facility] for further eval. Accepting COUNTER STACKER/oncology is Dr. Cosmo Adrian. d/w son, Isiah. Per son, no history of cancer. Son agreeable for transfer. Patient does not have the capacity to make her decisions given advanced dementia. DVT ppx: SCD's CODE STATUS: Full Anticipate pt will require 3-4 days of inpatient mgt, anticipate discharge to SNF, [facility] 40 min spent on this case and 23 min dedicated to counseling and or care coordination. Time of note may not reflect time of clinical encounter. Subjective Date patient seen: Dec 24, 2017 Allergies: Coded Allergies: No Known Allergies (Unverified , 04/30/16) Subjective - awaiting transfer to [facility] - Hgb downtrended to 8 - Cr uptrending, 2.0 today - WBC 11 today but no fevers - tolerating tube feeds with no residuals. no reglan given today - minimal bleeding from vaginal area today - atrial flutter but HR better controlled in the 80s Objective Last 24 Hour Vital Signs Date Time Temp Pulse Resp B/P (MAP) Pulse Ox O2 Delivery O2 Flow Rate FiO2 12/24/17 13:30 95 131/77 12/24/17 12:00 97.3 95 20 131/77 (95) 100 97.3 12/24/17 09:00 Nasal Cannula 2.0 12/24/17 08:54 85 117/71 12/24/17 08:00 97.9 85 18 117/71 (86) 100 97.9 12/24/17 08:00 97 12/24/17 07:05 88 18 Room Air 21 12/24/17 05:33 88 111/71 12/24/17 04:00 88 12/24/17 04:00 97.9 91 18 111/71 (84) 95 97.9 12/24/17 00:00 97.3 95 18 112/69 (83) 97 97.3 12/24/17 00:00 88 12/23/17 21:59 133 125/73 12/23/17 21:00 Nasal Cannula 2.0 12/23/17 20:00 97.7 101 20 125/73 (90) 93 97.7 12/23/17 20:00 133 12/23/17 19:47 101 20 Room Air 21 12/23/17 18:43 97.3 12/23/17 18:13 97.3 12/23/17 16:00 107 12/23/17 16:00 97.3 116 20 133/100 (111) 95 97.3 Intake and Output 12/23/17 12/24/17 19:00 07:00 Intake Total 1470 ml Balance 1470 ml Intake Free Water 150 ml IV Total 825 ml Tube Feeding 495 ml # Voids 7 2 # Bowel Movements 4 2 Laboratory Tests 12/24/17 07:01: White Blood Count 11.1H, Red Blood Count 3.17L, Hemoglobin 8.1L, Hematocrit 25.7L, Mean Corpuscular Volume 81, Mean Corpuscular Hemoglobin 25.5L, Mean Corpuscular Hemoglobin Concent 31.5L, Red Cell Distribution Width 19.7H, Platelet Count 220, Mean Platelet Volume 6.7, Neutrophils (%) (Auto) 68.4, Lymphocytes (%) (Auto) 16.3L, Monocytes (%) (Auto) 13.8H, Eosinophils (%) (Auto ) 0.6, Basophils (%) (Auto) 1.0, Sodium Level 135L, Potassium Level 4.5, Chloride Level 102, Carbon Dioxide Level 22, Anion Gap 11, Blood Urea Nitrogen 31H, Creatinine 2.0H, Estimat Glomerular Filtration Rate , Glucose Level 129H, Calcium Level 7.8L, Total Bilirubin 0.5, Aspartate Amino Transf (AST/SGOT) 42H, Alanine Aminotransferase (ALT/SGPT) 20, Alkaline Phosphatase 120H, Total Protein 7.2, Albumin 1.7L, Globulin 5.5, Albumin/Globulin Ratio 0.3L Height (Feet): 5 Height (Inches): 7.00 Weight (Pounds): 151 General Appearance: no apparent distress, alert EENT: PERRL/EOMI, normal ENT inspection Neck: non-tender, normal alignment, supple Cardiovascular: normal peripheral pulses, normal rate, regular rhythm Respiratory/Chest: chest wall non-tender, lungs clear, normal breath sounds Abdomen: normal bowel sounds, non tender, soft, other - +PEG Genitourinary/Rectal: other - minimal vaginal bleeding from vaginal mass Neurologic: alert Skin: normal pigmentation, warm/dry Hattie Sow NP Dec 24, 2017 13:49
--- NOTE | 2017-12-24 14:11 | GI Progress Note ---
Assessment/Plan Problems: (1) S/P percutaneous endoscopic gastrostomy (PEG) tube placement ICD Codes: Z93.1 - Gastrostomy status SNOMED: 945870960 (2) Anemia ICD Codes: D64.9 - Anemia, unspecified SNOMED: 306036254 (3) Dehydration ICD Codes: E86.0 - Dehydration SNOMED: 08810600 Status: stable Status Narrative Discussed with Dr. Man. Assessment/Plan supportive care GTFs per RD, pt tolerating feeding with no residual reglan to prn consider GTF change to Osmolite if residuals still high GT site care prn ppi fu labs The patient was seen and examined at bedside and all new and available data was reviewed in the patients chart. I agree with the above findings, impression and plan. (Patient seen earlier today. Signature stamp does not reflect patient encounter time.). - Ko Man MD Subjective Subjective limited Objective Last 24 Hour Vital Signs Date Time Temp Pulse Resp B/P (MAP) Pulse Ox O2 Delivery O2 Flow Rate FiO2 12/24/17 13:30 95 131/77 12/24/17 12:00 97.3 95 20 131/77 (95) 100 97.3 12/24/17 09:00 Nasal Cannula 2.0 12/24/17 08:54 85 117/71 12/24/17 08:00 97.9 85 18 117/71 (86) 100 97.9 12/24/17 08:00 97 12/24/17 07:05 88 18 Room Air 21 12/24/17 05:33 88 111/71 12/24/17 04:00 88 12/24/17 04:00 97.9 91 18 111/71 (84) 95 97.9 12/24/17 00:00 97.3 95 18 112/69 (83) 97 97.3 12/24/17 00:00 88 12/23/17 21:59 133 125/73 12/23/17 21:00 Nasal Cannula 2.0 12/23/17 20:00 97.7 101 20 125/73 (90) 93 97.7 12/23/17 20:00 133 12/23/17 19:47 101 20 Room Air 21 12/23/17 18:43 97.3 12/23/17 18:13 97.3 12/23/17 16:00 107 12/23/17 16:00 97.3 116 20 133/100 (111) 95 97.3 Intake and Output 12/23/17 12/24/17 19:00 07:00 Intake Total 1470 ml Balance 1470 ml Intake Free Water 150 ml IV Total 825 ml Tube Feeding 495 ml # Voids 7 2 # Bowel Movements 4 2 Laboratory Tests Test 12/24/17 07:01 White Blood Count 11.1 K/UL (4.8-10.8) H Red Blood Count 3.17 M/UL (4.20-5.40) L Hemoglobin 8.1 G/DL (12.0-16.0) L Hematocrit 25.7 % (37.0-47.0) L Mean Corpuscular Volume 81 FL (80-99) Mean Corpuscular Hemoglobin 25.5 PG (27.0-31.0) L Mean Corpuscular Hemoglobin Concent 31.5 G/DL (32.0-36.0) L Red Cell Distribution Width 19.7 % (11.6-14.8) H Platelet Count 220 K/UL (150-450) Mean Platelet Volume 6.7 FL (6.5-10.1) Neutrophils (%) (Auto) 68.4 % (45.0-75.0) Lymphocytes (%) (Auto) 16.3 % (20.0-45.0) L Monocytes (%) (Auto) 13.8 % (1.0-10.0) H Eosinophils (%) (Auto) 0.6 % (0.0-3.0) Basophils (%) (Auto) 1.0 % (0.0-2.0) Sodium Level 135 MMOL/L (136-145) L Potassium Level 4.5 MMOL/L (3.5-5.1) Chloride Level 102 MMOL/L (98-107) Carbon Dioxide Level 22 MMOL/L (21-32) Anion Gap 11 mmol/L (5-15) Blood Urea Nitrogen 31 mg/dL (7-18) H Creatinine 2.0 MG/DL (0.55-1.30) H Estimat Glomerular Filtration Rate mL/min (>60) Glucose Level 129 MG/DL (74-106) H Calcium Level 7.8 MG/DL (8.5-10.1) L Total Bilirubin 0.5 MG/DL (0.2-1.0) Aspartate Amino Transf (AST/SGOT) 42 U/L (15-37) H Alanine Aminotransferase (ALT/SGPT) 20 U/L (12-78) Alkaline Phosphatase 120 U/L (46-116) H Total Protein 7.2 G/DL (6.4-8.2) Albumin 1.7 G/DL (3.4-5.0) L Globulin 5.5 g/dL Albumin/Globulin Ratio 0.3 (1.0-2.7) L Height (Feet): 5 Height (Inches): 7.00 Weight (Pounds): 151 General Appearance: WD/WN, no apparent distress, alert Cardiovascular: normal rate Respiratory/Chest: normal breath sounds, no respiratory distress Abdominal Exam: normal bowel sounds, non tender, soft, GT site - c/d/i Extremities: non-tender Garth Don NP Dec 24, 2017 14:11
--- NOTE | 2017-12-24 16:01 | Diagnostic Imaging Report ---
Indication: Shortness of breath Technique: One view of the chest Comparison: 12/18/2017 Findings: There is subtle slight increased interstitial congestion since previous exam. There is questionably a patchy airspace opacity in the right midlung periphery The heart is borderline enlarged. The pleural spaces are clear Impression: Subtle interstitial congestion, right midlung airspace opacity, developing since 12/18/2017. Findings may reflect pulmonary edema versus infectious/inflammatory process
--- NOTE | 2017-12-24 16:21 | Anethesia Preoperative Eval ---
Anesthesia Pre-op PMH/ROS General Date of Evaluation: Dec 24, 2017 Time of Evaluation: 16:14 Anesthesiologist: Robert ASA Score: ASA 4 Mallampati Score Class I : Soft palate, uvula, fauces, pillars visible Class II: Soft palate, uvula, fauces visible Class III: Soft palate, base of uvula visible Class IV: Only hard plate visible Mallampati Classification: Class III Surgeon: Fany Diagnosis: Bladder mass Surgical Procedure: Cysto, mass Bx Anesthesia History: none Family History: no anesthesia problems Allergies: Coded Allergies: No Known Allergies (Unverified , 04/30/16) Past Medical History Cardiovascular: Reports: HTN, arrhythmia - A fib with RVR Pulmonary: Denies: asthma, COPD, ZACARIAS, other Gastrointestinal/Genitourinary: Reports: GERD, CRI - high Cr, other - Vaginal vs bladder tumor with metastasis Neurologic/Psychiatric: Reports: dementia, CVA; Denies: depression/anxiety, TIA, other Endocrine: Reports: hypothyroidism; Denies: DM, steroids, other HEENT: Denies: cataract (L), cataract (R), glaucoma, ILIAMNA (L), ILIAMNA (R), other Hematology/Immune: Reports: anemia - of chronic d-s; Denies: DVT, bleeding disorder, other Musculoskeletal/Integumentary: Reports: DJD, other - contracted; Denies: OA, RA, DDD, edema Other: other - malnourished PEG tube in place PMH Narrative: as above PSxH Narrative: see chart Anesthesia Pre-op Phys. Exam Physician Exam Last Vital Signs Date Time Temp Pulse Resp B/P (MAP) Pulse Ox O2 Delivery O2 Flow Rate FiO2 12/24/17 13:30 95 131/77 12/24/17 12:00 97.3 20 100 97.3 12/24/17 09:00 Nasal Cannula 2.0 12/24/17 07:05 21 Constitutional: NAD Neurologic: other - unable to obtaine Cardiovascular: other - IIR Respiratory: CTA - diminished breath sounds Gastrointestinal: S/NT/ND Airway Exam Mallampati Score: Class III MO: limited Neck: stiff ROM: limited Teeth: missing Dentures: no upper, no lower Anesthesia Pre-op A/P Labs Hematology Test 12/24/17 07:01 White Blood Count 11.1 K/UL (4.8-10.8) H Red Blood Count 3.17 M/UL (4.20-5.40) L Hemoglobin 8.1 G/DL (12.0-16.0) L Hematocrit 25.7 % (37.0-47.0) L Mean Corpuscular Volume 81 FL (80-99) Mean Corpuscular Hemoglobin 25.5 PG (27.0-31.0) L Mean Corpuscular Hemoglobin Concent 31.5 G/DL (32.0-36.0) L Red Cell Distribution Width 19.7 % (11.6-14.8) H Platelet Count 220 K/UL (150-450) Mean Platelet Volume 6.7 FL (6.5-10.1) Neutrophils (%) (Auto) 68.4 % (45.0-75.0) Lymphocytes (%) (Auto) 16.3 % (20.0-45.0) L Monocytes (%) (Auto) 13.8 % (1.0-10.0) H Eosinophils (%) (Auto) 0.6 % (0.0-3.0) Basophils (%) (Auto) 1.0 % (0.0-2.0) Chemistry Test 12/24/17 07:01 Sodium Level 135 MMOL/L (136-145) L Potassium Level 4.5 MMOL/L (3.5-5.1) Chloride Level 102 MMOL/L (98-107) Carbon Dioxide Level 22 MMOL/L (21-32) Anion Gap 11 mmol/L (5-15) Blood Urea Nitrogen 31 mg/dL (7-18) H Creatinine 2.0 MG/DL (0.55-1.30) H Estimat Glomerular Filtration Rate mL/min (>60) Glucose Level 129 MG/DL (74-106) H Calcium Level 7.8 MG/DL (8.5-10.1) L Total Bilirubin 0.5 MG/DL (0.2-1.0) Aspartate Amino Transf (AST/SGOT) 42 U/L (15-37) H Alanine Aminotransferase (ALT/SGPT) 20 U/L (12-78) Alkaline Phosphatase 120 U/L (46-116) H Total Protein 7.2 G/DL (6.4-8.2) Albumin 1.7 G/DL (3.4-5.0) L Globulin 5.5 g/dL Albumin/Globulin Ratio 0.3 (1.0-2.7) L Risk Assessment & Plan Assessment: asa 4 Plan: GA with LMA vs ETT Status Change Before Surgery: No Pre-Antibiotics Drug: as scheduled Ron Jones MD Dec 24, 2017 16:21
[2017-12-24] MEDS: cefTRIAXone 1 GM in D5W 55 ML IVPB SCH (16:32)
--- NOTE | 2017-12-24 17:58 | Cardiology Progress Note ---
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 -Hold aspirin due to bleeding -Statin -Rate control with metoprolol 75 mg TID, can not cardiovert due to inability to anticoagulate and bleeding risk -echocardiogram - reviewed, normal LV function, grade III diastolic dysfunction and moderate pulmonary hypertension -Spot dose diuretics to keep negative and reduce filling pressures, lasix 20 mg daily -Rhythm was atrial flutter vs atrial tachycardia, no anticoagulation needed in this rhythm -monitor BP, slowly introduce medications as needed, concern for polypharmacy and hypotension as culprit given 4 anti hypertensive medications -continue norvasc 5 mg daily for now -supportive care -Hysteroscopy for biopsy to determine prognosis - transfer to [facility] -Patient cleared to proceed with cystoscopy -Left atrial myoxma not seen on TTE, would need KARISSA but 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 no signs of acute distress noted. patient is stable, remains SR all throughout the night Heart rate controlled, vitals stable, g tube running with feeds. Continues to have vaginal bleeding CT scan confirms some malignancy with possible mets and a left atrial myxoma Plan to to transfer to [facility] 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3 12/24/17 00:00 88 12/23/17 21:59 133 125/73 12/23/17 21:00 Nasal Cannula 2.0 12/23/17 20:00 97.7 101 20 125/73 (90) 93 97.7 12/23/17 20:00 133 12/23/17 19:47 101 20 Room Air 21 12/23/17 18:43 97.3 12/23/17 18:13 97.3 General Appearance: no apparent distress EENT: PERRL/EOMI Neck: non-tender, supple Rhythm: NSR Cardiovascular: normal peripheral pulses, regular rhythm Respiratory/Chest: chest wall non-tender, no respiratory distress Abdomen: normal bowel sounds, non tender, no organomegaly Extremities: normal range of motion Neurologic: nurse anesthesia program director II-XII grossly normal, abnormal gait Intake and Output 12/23/17 12/24/17 19:00 07:00 Intake Total 1470 ml Balance 1470 ml Intake Free Water 150 ml IV Total 825 ml Tube Feeding 495 ml # Voids 7 2 # Bowel Movements 4 2 Laboratory Tests Test 12/24/17 07:01 White Blood Count 11.1 K/UL (4.8-10.8) H Red Blood Count 3.17 M/UL (4.20-5.40) L Hemoglobin 8.1 G/DL (12.0-16.0) L Hematocrit 25.7 % (37.0-47.0) L Mean Corpuscular Volume 81 FL (80-99) Mean Corpuscular Hemoglobin 25.5 PG (27.0-31.0) L Mean Corpuscular Hemoglobin Concent 31.5 G/DL (32.0-36.0) L Red Cell Distribution Width 19.7 % (11.6-14.8) H Platelet Count 220 K/UL (150-450) Mean Platelet Volume 6.7 FL (6.5-10.1) Neutrophils (%) (Auto) 68.4 % (45.0-75.0) Lymphocytes (%) (Auto) 16.3 % (20.0-45.0) L Monocytes (%) (Auto) 13.8 % (1.0-10.0) H Eosinophils (%) (Auto) 0.6 % (0.0-3.0) Basophils (%) (Auto) 1.0 % (0.0-2.0) Sodium Level 135 MMOL/L (136-145) L Potassium Level 4.5 MMOL/L (3.5-5.1) Chloride Level 102 MMOL/L (98-107) Carbon Dioxide Level 22 MMOL/L (21-32) Anion Gap 11 mmol/L (5-15) Blood Urea Nitrogen 31 mg/dL (7-18) H Creatinine 2.0 MG/DL (0.55-1.30) H Estimat Glomerular Filtration Rate mL/min (>60) Glucose Level 129 MG/DL (74-106) H Calcium Level 7.8 MG/DL (8.5-10.1) L Total Bilirubin 0.5 MG/DL (0.2-1.0) Aspartate Amino Transf (AST/SGOT) 42 U/L (15-37) H Alanine Aminotransferase (ALT/SGPT) 20 U/L (12-78) Alkaline Phosphatase 120 U/L (46-116) H Total Protein 7.2 G/DL (6.4-8.2) Albumin 1.7 G/DL (3.4-5.0) L Globulin 5.5 g/dL Albumin/Globulin Ratio 0.3 (1.0-2.7) L Nikolai Brooks M.D. Dec 24, 2017 17:58
[2017-12-24 20:53] LABS: APPEARANCE,URINE TURBID; BILIRUBIN, URINE NEGATIVE (NEGATIVE); GLUCOSE, URINE (UA) NEGATIVE (NEGATIVE); KETONES,URINE NEGATIVE (NEGATIVE); LEUKOCYTE ESTERASE ,URINE 3+ (NEGATIVE); NITRITE,URINE NEGATIVE (NEGATIVE); PH,URINE 8 (4.5-8.0); PROTEIN,URINE 3+ (NEGATIVE); UROBILINOGEN,URINE NORMAL MG/DL (0.0-1.0)
[2017-12-24 20:54] LABS: COLOR,URINE BROWN
[2017-12-24] MEDS: Atorvastatin 80mg tab ORAL SCH (21:23)
[2017-12-24] MEDS: Iron Sucrose 100 MG in NS 55 ML IV SCH (21:26)
[2017-12-25] VITALS (10 sets, daily range): BP systolic 107–128; BP diastolic 64–82
[2017-12-25] MEDS: D5 1/2NS 1,000 ML IV SCH ×2 (06:01→17:58)
[2017-12-25] MEDS: Metoprolol Tartrate 50mg tab ORAL SCH ×3 (06:02→22:48)
[2017-12-25] MEDS ORDERED: Sterile Water Irrig 1000ml IRRIG ONE ×2 (07:00→10:51)
[2017-12-25] MEDS ORDERED: Sterile Water For Irrig 2000ml IRRIG ONE (07:00)
[2017-12-25] MEDS ORDERED: NS Irrig 4000ml IRRIG ONE (07:00)
[2017-12-25] MEDS ORDERED: LR 1000ml ONE (07:00)
--- NOTE | 2017-12-25 07:34 | Urology Progress Note ---
Assessment/Plan Assessment/Plan 1. Perineal mass, which may be gynecologic or urologic in origin, but is concerning for malignancy. 2. Urinary incontinence. 3. Probable neurogenic bladder. 4. Renal cyst. 5. SUNNY. 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 will need [facility] and med/onc f/u plan pelvic exam under anesthesia with fulguration, poss bx, and pruitt, poss sp tube monitor renal fxn, h/h no blood transfusion per pt's son anticoagulation held d/w primary service extensively d/w [facility] will likey need transfer to tertiary care center Subjective Allergies: Coded Allergies: No Known Allergies (Unverified , 04/30/16) Subjective all noted, for cysto and pruitt placement today spoke to pt's son extensively about grave situation, need for above procedure informed pt's son that she will most likely need blood transfusion pt's son informed me pt is [facility] and adamantly refused any transfusion I did tell him that pt may if not transfused and he still refuses transfusion I did inform Dr. Chapman ([facility]) about procedure this morning and if she wants to come to the OR for exam Objective Last 24 Hour Vital Signs Date Time Temp Pulse Resp B/P (MAP) Pulse Ox O2 Delivery O2 Flow Rate FiO2 12/25/17 06:02 79 118/66 12/25/17 04:00 98.2 101 20 118/66 (83) 97 98.2 12/25/17 04:00 79 12/25/17 00:00 82 12/24/17 23:47 99.3 120 20 121/73 (89) 95 99.3 12/24/17 21:24 118 139/79 12/24/17 21:00 Nasal Cannula 2.0 12/24/17 20:17 118 20 Room Air 21 12/24/17 20:00 153 12/24/17 20:00 97.5 106 18 139/79 (99) 95 97.5 12/24/17 16:00 97 12/24/17 16:00 97.9 74 19 124/73 (90) 100 97.9 12/24/17 13:30 95 131/77 12/24/17 12:00 97 12/24/17 12:00 97.3 95 20 131/77 (95) 100 97.3 12/24/17 09:00 Nasal Cannula 2.0 12/24/17 08:54 85 117/71 12/24/17 08:00 97.9 85 18 117/71 (86) 100 97.9 12/24/17 08:00 97 Intake and Output 12/24/17 12/25/17 19:00 07:00 Intake Total 75 ml 360 ml Balance 75 ml 360 ml IV Total 75 ml 360 ml # Voids 3 3 # Bowel Movements 1 Microbiology Date/Time Source Procedure Growth Status 12/19/17 17:50 Vaginal Gram Stain - Final Complete 12/19/17 17:50 Vaginal Neisseria gonorrhoeae Culture - Final No Neisseria gonorrhoeae isolated Complete 12/18/17 23:04 Nasal Nares MRSA Culture - Final NO METHICILLIN RESISTANT STAPH AUREUS... Complete 12/18/17 23:04 Rectum VRE Culture - Final Enterococcus Faecalis - Vre Complete 12/18/17 23:04 Rectum - Final NO CARBAPENEM-RESISTANT ENTEROBACTERI... Complete Current Medications Medications (Trade) Dose Ordered Sig/Renea Route PRN Reason Start Time Stop Time Status Last Admin Dose Admin Amlodipine Besylate (Norvasc) 5 mg DAILY ORAL 12/22/17 13:24 01/21/18 13:23 12/24/17 08:54 Atorvastatin Calcium (Lipitor) 80 mg BEDTIME ORAL 12/19/17 21:00 01/18/18 20:59 12/24/17 21:23 Barium Sulfate (Readi-Cat 2) 450 ml NOW PRN ORAL Radiology Procedure 12/21/17 12:23 Ceftriaxone Sodium 1 gm/ Dextrose 55 ml @ 110 mls/hr Q24H IVPB 12/24/17 15:00 12/31/17 14:59 12/24/17 16:32 Dextrose/Sodium Chloride 1,000 ml @ 75 mls/hr [id number] IV 12/19/17 02:45 01/18/18 02:44 12/25/17 06:01 Folic Acid (Folate) 1 mg DAILY ORAL 12/20/17 09:00 01/19/18 08:59 12/24/17 08:53 Furosemide (Lasix) 20 mg DAILY ORAL 12/21/17 13:45 01/20/18 13:44 12/24/17 08:54 Iopamidol (Isovue-300 100ml) 100 ml NOW PRN INJ Radiology Procedure 12/21/17 12:30 Iron Sucrose 100 mg/Sodium Chloride 60 ml @ 240 mls/hr BEDTIME IV 12/21/17 21:00 12/25/17 21:14 12/24/17 21:26 Levetiracetam (Keppra) 750 mg Q12HR NG 12/23/17 09:11 01/22/18 09:10 12/24/17 21:25 Metoclopramide HCl (Reglan) 5 mg Q6H PRN NG for gastric residuals >50cc 12/23/17 15:15 01/22/18 15:14 Metoprolol Tartrate (Lopressor) 75 mg EVERY 8 HOURS ORAL 12/23/17 22:00 01/18/18 08:59 12/25/17 06:02 Mirtazapine (Remeron) 15 mg BEDTIME ORAL 12/19/17 21:00 01/18/18 20:59 12/24/17 21:24 Morphine Sulfate (Morphine Sulfate) 2 mg Q6H PRN IVP For Pain 12/19/17 18:45 12/26/17 18:44 12/23/17 18:13 Quetiapine Fumarate (SEROquel) 25 mg Q6H PRN ORAL agitation 12/22/17 15:15 01/21/18 15:14 12/24/17 16:35 Tamsulosin HCl (Flomax) 0.4 mg DAILY ORAL 12/20/17 09:00 01/19/18 08:59 12/24/17 08:53 Laboratory Tests 12/24/17 20:20: Urine Color Brown, Urine Appearance Turbid, Urine pH 8, Urine Specific [place] 1.015, Urine Protein 3+H, Urine Glucose (UA) Negative, Urine Ketones Negative, Urine Occult Blood 5+H, Urine Nitrite Negative, Urine Bilirubin Negative, Urine Urobilinogen Normal, Urine Leukocyte Esterase 3+H, Urine RBC TntcH, Urine WBC TntcH, Urine Squamous Epithelial Cells Few, Urine Bacteria ManyH 12/25/17 07:20: White Blood Count [Pending], Red Blood Count [Pending], Hemoglobin [Pending], Hematocrit [Pending], Mean Corpuscular Volume [Pending], Mean Corpuscular Hemoglobin [Pending], Mean Corpuscular Hemoglobin Concent [Pending], Red Cell Distribution Width [Pending], Platelet Count [Pending], Mean Platelet Volume [ Pending], Neutrophils (%) (Auto) [Pending], Lymphocytes (%) (Auto) [Pending], Monocytes (%) (Auto) [Pending], Eosinophils (%) (Auto) [Pending], Basophils (%) (Auto) [Pending], Sodium Level [Pending], Potassium Level [Pending], Chloride Level [Pending], Carbon Dioxide Level [Pending], Blood Urea Nitrogen [Pending], Creatinine [Pending], Estimat Glomerular Filtration Rate [Pending], Glucose Level [Pending], Calcium Level [Pending], Total Bilirubin [Pending], Aspartate Amino Transf (AST/SGOT) [Pending], Alanine Aminotransferase (ALT/SGPT) [Pending] , Alkaline Phosphatase [Pending], Total Protein [Pending], Albumin [Pending], Globulin [Pending] Height (Feet): 5 Height (Inches): 7.00 Weight (Pounds): 158 Objective exam stable JOSH PENNINGTON Dec 25, 2017 07:34
--- NOTE | 2017-12-25 07:35 | Pre-Procedure Note/Attestation ---
Pre-Procedure Note/Attestation Complete Prior to Procedure Planned Procedure: not applicable Procedure Narrative: cysto, possible biopsy, fulguration, possible sp tube Attestation I attest that I discussed the nature of the procedure; its benefits; risks and complications; and alternatives (and the risks and benefits of such alternatives ), prior to the procedure, with the patient (or the patient's legal indirect sales representative). I attest that, if there was a reasonable possibility of needing a blood transfusion, the patient (or the patient's legal indirect sales representative) was given the [facility] standardized written summary, pursuant to the [place] Blood Safety Act ([place] Health and Safety Code # 1645, as amended). I attest that I re-evaluated the patient just prior to the surgery and that there has been no change in the patient's H&P, except as documented below: see progress notes JOSH PENNINGTON Dec 25, 2017 07:35
[2017-12-25 07:41] LABS: HEMATOCRIT 23.2 % (37.0-47.0); HEMOGLOBIN 7.3 G/DL (12.0-16.0); MEAN CORPUSCULAR VOLUME 80 FL (80-99); PLATELET COUNT 215 K/UL (150-450); RED BLOOD COUNT 2.88 M/UL (4.20-5.40); RED CELL DISTRIBUTION WIDTH 19.6 % (11.6-14.8); WHITE BLOOD COUNT 9.6 K/UL (4.8-10.8)
[2017-12-25] MEDS ORDERED: fentaNYL 100 mcg/2 mL IV ONE (07:54)
[2017-12-25] MEDS ORDERED: Lidocaine 1% MPF 10mg/ml 5ml ONE (08:05)
[2017-12-25] MEDS ORDERED: Propofol 200mg/20ml IV ONE (08:05)
[2017-12-25] MEDS ORDERED: Metoclopramide 10mg/2ml Inj ONE (08:05)
[2017-12-25 08:07] LABS: ALANINE AMINOTRANSFERASE 20 U/L (12-78); ALBUMIN 1.5 G/DL (3.4-5.0); ALBUMIN/GLOBULIN RATIO 0.3 (1.0-2.7); ALKALINE PHOSPHATASE 115 U/L (46-116); ANION GAP 7 mmol/L (5-15); ASPARTATE AMINO TRANSFERASE 36 U/L (15-37); BILIRUBIN,TOTAL 0.7 MG/DL (0.2-1.0); BLOOD UREA NITROGEN 35 mg/dL (7-18); CALCIUM 7.8 MG/DL (8.5-10.1); CARBON DIOXIDE 23 MMOL/L (21-32); CHLORIDE 104 MMOL/L (98-107); CREATININE 2.6 MG/DL (0.55-1.30); POTASSIUM 4.1 MMOL/L (3.5-5.1); SODIUM 134 MMOL/L (136-145)
--- NOTE | 2017-12-25 08:40 | Brief Operative Note ---
Immediate Post Operative Note Operative Note Pre-op Diagnosis: vaginal mass and bleeding, diff cath Procedure: cysto, extensive fulguration of bladder and urethral/vaginal mass with biopsy of sloughed tissue Post-op Diagnosis: same as pre-op Findings: other - mass in bladder, proturding into urethra and vagina, anterior vaginal induration Surgeon: dalton Anesthesiologist: peter Anesthesia: general Specimen: yes Complications: none Condition: stable Fluids: NS Estimated Blood Loss: minimal Packing: vaginal Implant(s) used?: No JOSH PENNINGTON Dec 25, 2017 08:40
--- NOTE | 2017-12-25 08:55 | Immediate Post-Op Evaluation ---
Immediate Post-Op Evalulation Immediate Post-Op Evalulation Procedure: cystoscopy Date of Evaluation: Dec 25, 2017 Time of Evaluation: 08:45 IV Fluids: 400 Blood Pressure Systolic: 114 Blood Pressure Diastolic: 74 Pulse Rate: 97 Respiratory Rate: 14 O2 Sat by Pulse Oximetry: 100 Temperature (Fahrenheit): 97.4 Nausea: No Vomiting: No Complications none Patient Status: reacts, patent Hydration Status: adequate Drug: none RuthriMichelle boyd CRNA Dec 25, 2017 08:55
[2017-12-25] MEDS: levETIRAcetam 500mg/5ml Liquid NG SCH ×2 (09:56→22:49)
[2017-12-25] MEDS: Tamsulosin 0.4mg cap ORAL SCH (09:56)
[2017-12-25] MEDS ORDERED: Tubing IV Secondary IV ONE (10:51)
[2017-12-25] MEDS ORDERED: D5 1/2NS 1000ml IV ONE (10:51)
--- NOTE | 2017-12-25 12:23 | General Progress Note ---
Assessment/Plan Status: not improved, unchanged Assessment/Plan #. Heterogeneous mass lesion involving the bladder, with portions of the posterior bladder inseparable from the lower uterine segment/cervix and vagina. Findings are highly concerning for malignancy, either bladder or gynecologic ( vaginal/cervical/uterine) in etiology --> CT C/A/P with iv contrast: Heterogeneous mass lesion within the bladder, contiguous with heterogeneous mass in the vagina highly concerning for malignancy. Multiple bilateral pulmonary nodules most concerning for metastatic disease. Small pelvic lymph nodes. 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 --> tumor markers pending --> eval with uro as needed --> will likely need biopsy with with operating manager-onc or with cystocsopy with uro #. Anemia due to iron deficiency --> eval for gi bleed as need v vaginal bleed --> iron iv has been completed x 5 days. --> 12/25: Hgb 7.3, IV iron started x5 days. --> appreciate recs from Dr. Chapman (Stopboard Assembler) #. Dysphagia, status post gastrostomy tube. #. Chronic atrial fibrillation with history of rapid ventricular response. Rate controlled on aspirin --> anticoag once above worked up #. Hypertension, on multiple hypertensive medications. The time the note was entered does not necessarily correspond to the time the patient was seen. Subjective Date patient seen: Dec 25, 2017 ROS Limited/Unobtainable: Yes Hematologic/Lymphatic: Reports: anemia Allergies: Coded Allergies: No Known Allergies (Unverified , 04/30/16) All Systems: reviewed and negative except above Subjective Pt s/p cystoscopy. Pt obtunded. Hgb trending downwards over the past week to 7.3 , IV iron ordered. Awaiting transfer to [facility]. Objective Last 24 Hour Vital Signs Date Time Temp Pulse Resp B/P (MAP) Pulse Ox O2 Delivery O2 Flow Rate FiO2 12/25/17 09:56 98 114/68 12/25/17 09:30 Nasal Cannula 2.0 12/25/17 09:17 97.2 98 16 114/68 100 Nasal Cannula 3 97.2 12/25/17 09:10 102 14 111/64 100 Nasal Cannula 3 12/25/17 09:00 97 15 107/67 100 Simple Mask 6 12/25/17 09:00 Nasal Cannula 2.0 12/25/17 08:55 207.3 97 14 100 12/25/17 08:50 104 13 128/69 100 Simple Mask 6 12/25/17 08:45 100 13 128/70 100 Simple Mask 6 12/25/17 08:40 97 97 14 110/74 100 Simple Mask 6 97.0 12/25/17 06:02 79 118/66 12/25/17 04:00 98.2 101 20 118/66 (83) 97 98.2 12/25/17 04:00 79 12/25/17 00:00 82 12/24/17 23:47 99.3 120 20 121/73 (89) 95 99.3 12/24/17 21:24 118 139/79 12/24/17 21:00 Nasal Cannula 2.0 12/24/17 20:17 118 20 Room Air 21 12/24/17 20:00 153 12/24/17 20:00 97.5 106 18 139/79 (99) 95 97.5 12/24/17 16:00 97 12/24/17 16:00 97.9 74 19 124/73 (90) 100 97.9 12/24/17 13:30 95 131/77 Intake and Output 12/24/17 12/25/17 19:00 07:00 Intake Total 75 ml 360 ml Balance 75 ml 360 ml IV Total 75 ml 360 ml # Voids 3 3 # Bowel Movements 1 Laboratory Tests 12/24/17 20:20: Urine Color Brown, Urine Appearance Turbid, Urine pH 8, Urine Specific [place] 1.015, Urine Protein 3+H, Urine Glucose (UA) Negative, Urine Ketones Negative, Urine Occult Blood 5+H, Urine Nitrite Negative, Urine Bilirubin Negative, Urine Urobilinogen Normal, Urine Leukocyte Esterase 3+H, Urine RBC TntcH, Urine WBC TntcH, Urine Squamous Epithelial Cells Few, Urine Bacteria ManyH 12/25/17 07:20: White Blood Count 9.6, Red Blood Count 2.88L, Hemoglobin 7.3L, Hematocrit 23.2L , Mean Corpuscular Volume 80, Mean Corpuscular Hemoglobin 25.2L, Mean Corpuscular Hemoglobin Concent 31.4L, Red Cell Distribution Width 19.6H, Platelet Count 215, Mean Platelet Volume 7.0, Neutrophils (%) (Auto) , Lymphocytes (%) (Auto) , Monocytes (%) (Auto) , Eosinophils (%) (Auto) , Basophils (%) (Auto) , Differential Total Cells Counted 100, Neutrophils % ( Manual) 71, Lymphocytes % (Manual) 17L, Monocytes % (Manual) 12H, Eosinophils % (Manual) 0, Basophils % (Manual) 0, Band Neutrophils 0, Platelet Estimate Adequate, Platelet Morphology Normal, Polychromasia 1+, Hypochromasia 1+, Anisocytosis 2+, Microcytosis 1+, Ovalocytes 1+, Sodium Level 134L, Potassium Level 4.1, Chloride Level 104, Carbon Dioxide Level 23, Anion Gap 7, Blood Urea Nitrogen 35H, Creatinine 2.6H, Estimat Glomerular Filtration Rate , Glucose Level 130H, Calcium Level 7.8L, Total Bilirubin 0.7, Aspartate Amino Transf (AST /SGOT) 36, Alanine Aminotransferase (ALT/SGPT) 20, Alkaline Phosphatase 115, Total Protein 6.9, Albumin 1.5L, Globulin 5.4, Albumin/Globulin Ratio 0.3L Height (Feet): 5 Height (Inches): 7.00 Weight (Pounds): 158 General Appearance: no apparent distress, lethargic EENT: PERRL/EOMI Neck: normal alignment Cardiovascular: tachycardia Respiratory/Chest: no respiratory distress Abdomen: soft Jerry Delarosa MD Dec 25, 2017 12:23
--- NOTE | 2017-12-25 12:24 | General Progress Note ---
Assessment/Plan Assessment/Plan MDD Anxiety d/o Vascular Dementia the pt lacks capacity seroquel 25mg q 6hr/prn/anxiety Subjective Date patient seen: Dec 25, 2017 Neurologic/Psychiatric: Reports: anxiety, depressed, emotional problems Allergies: Coded Allergies: No Known Allergies (Unverified , 04/30/16) Subjective the pt is agitated and confused the pt is unable to understand nor process the information given to her regarding her medical condition Objective Last 24 Hour Vital Signs Date Time Temp Pulse Resp B/P (MAP) Pulse Ox O2 Delivery O2 Flow Rate FiO2 12/25/17 09:56 98 114/68 12/25/17 09:30 Nasal Cannula 2.0 12/25/17 09:17 97.2 98 16 114/68 100 Nasal Cannula 3 97.2 12/25/17 09:10 102 14 111/64 100 Nasal Cannula 3 12/25/17 09:00 97 15 107/67 100 Simple Mask 6 12/25/17 09:00 Nasal Cannula 2.0 12/25/17 08:55 207.3 97 14 100 12/25/17 08:50 104 13 128/69 100 Simple Mask 6 12/25/17 08:45 100 13 128/70 100 Simple Mask 6 12/25/17 08:40 97 97 14 110/74 100 Simple Mask 6 97.0 12/25/17 06:02 79 118/66 12/25/17 04:00 98.2 101 20 118/66 (83) 97 98.2 12/25/17 04:00 79 12/25/17 00:00 82 12/24/17 23:47 99.3 120 20 121/73 (89) 95 99.3 12/24/17 21:24 118 139/79 12/24/17 21:00 Nasal Cannula 2.0 12/24/17 20:17 118 20 Room Air 21 12/24/17 20:00 153 12/24/17 20:00 97.5 106 18 139/79 (99) 95 97.5 12/24/17 16:00 97 12/24/17 16:00 97.9 74 19 124/73 (90) 100 97.9 12/24/17 13:30 95 131/77 Intake and Output 12/24/17 12/25/17 19:00 07:00 Intake Total 75 ml 360 ml Balance 75 ml 360 ml IV Total 75 ml 360 ml # Voids 3 3 # Bowel Movements 1 Laboratory Tests 12/24/17 20:20: Urine Color Brown, Urine Appearance Turbid, Urine pH 8, Urine Specific [place] 1.015, Urine Protein 3+H, Urine Glucose (UA) Negative, Urine Ketones Negative, Urine Occult Blood 5+H, Urine Nitrite Negative, Urine Bilirubin Negative, Urine Urobilinogen Normal, Urine Leukocyte Esterase 3+H, Urine RBC TntcH, Urine WBC TntcH, Urine Squamous Epithelial Cells Few, Urine Bacteria ManyH 12/25/17 07:20: White Blood Count 9.6, Red Blood Count 2.88L, Hemoglobin 7.3L, Hematocrit 23.2L , Mean Corpuscular Volume 80, Mean Corpuscular Hemoglobin 25.2L, Mean Corpuscular Hemoglobin Concent 31.4L, Red Cell Distribution Width 19.6H, Platelet Count 215, Mean Platelet Volume 7.0, Neutrophils (%) (Auto) , Lymphocytes (%) (Auto) , Monocytes (%) (Auto) , Eosinophils (%) (Auto) , Basophils (%) (Auto) , Differential Total Cells Counted 100, Neutrophils % ( Manual) 71, Lymphocytes % (Manual) 17L, Monocytes % (Manual) 12H, Eosinophils % (Manual) 0, Basophils % (Manual) 0, Band Neutrophils 0, Platelet Estimate Adequate, Platelet Morphology Normal, Polychromasia 1+, Hypochromasia 1+, Anisocytosis 2+, Microcytosis 1+, Ovalocytes 1+, Sodium Level 134L, Potassium Level 4.1, Chloride Level 104, Carbon Dioxide Level 23, Anion Gap 7, Blood Urea Nitrogen 35H, Creatinine 2.6H, Estimat Glomerular Filtration Rate , Glucose Level 130H, Calcium Level 7.8L, Ferritin [Pending], Total Bilirubin 0.7, Aspartate Amino Transf (AST/SGOT) 36, Alanine Aminotransferase (ALT/SGPT) 20, Alkaline Phosphatase 115, Total Protein 6.9, Albumin 1.5L, Globulin 5.4, Albumin /Globulin Ratio 0.3L Height (Feet): 5 Height (Inches): 7.00 Weight (Pounds): 158 General Appearance: no apparent distress, alert, confused, agitated Kunal Tse MD Dec 25, 2017 12:24
--- NOTE | 2017-12-25 13:01 | 48 Hour Post Anesthesia Eval ---
Post Anesthesia Evaluation Procedure: cystoscopy Date of Evaluation: Dec 25, 2017 Time of Evaluation: 13:01 Blood Pressure Systolic: 115 0: 68 Pulse Rate: 95 Respiratory Rate: 14 O2 Sat by Pulse Oximetry: 99 Airway: patent Nausea: No Vomiting: No Hydration Status: adequate Cardiopulmonary Status: stable Mental Status/LOC: patient returned to baseline Follow-up Care/Observations: na Post-Anesthesia Complications: none Follow-up care needed: N/A Michelle Palafox CRNA Dec 25, 2017 13:01
[2017-12-25] MEDS: cefTRIAXone 1 GM in D5W 55 ML IVPB SCH (14:18)
--- NOTE | 2017-12-25 16:26 | Diagnostic Imaging Report ---
Indication: Hematuria, abnormal renal function tests Technique: Grayscale and duplex images of the kidneys, retroperitoneum, and bladder were obtained. Comparison: none Findings: Right kidney measures 11 cm in length. Left kidney measures 9.7 cm in length. Both kidneys demonstrate normal echogenicity. There is moderate right and mild left hydronephrosis. The kidneys demonstrate cysts bilaterally. Normal inferior vena cava. Bladder contains a Prather catheter. There is approximately 34 mL of retained urine within the bladder despite Prather catheter. In the floor of the bladder, there is a soft tissue mass with vascularity with measures approximately 8.3 x 5.4 cm. Impression: Moderate right, mild left hydronephrosis Large bladder mass, also described on recent CT. Prather catheter Incidental finding bilateral renal cysts
[2017-12-25] MEDS: Morphine Sulfate 2mg/ml Inj(IV/IM USE ONLY) IVP PRN (17:59)
--- NOTE | 2017-12-25 19:54 | Cardiology Progress Note ---
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 -Hold aspirin due to bleeding - Continue Statin -Rate control with metoprolol 75 mg TID, can not cardiovert due to inability to anticoagulate and bleeding risk -echocardiogram - reviewed, normal LV function, grade III diastolic dysfunction and moderate pulmonary hypertension -Spot dose diuretics to keep negative and reduce filling pressures, lasix 20 mg daily -Rhythm was atrial flutter vs atrial tachycardia, no anticoagulation needed in this rhythm -monitor BP, slowly introduce medications as needed, concern for polypharmacy and hypotension as culprit given 4 anti hypertensive medications -continue norvasc 5 mg daily for now -supportive care -Hysteroscopy for biopsy to determine prognosis - transfer to [facility] -Left atrial myoxma not seen on TTE, would need KARISSA but would not loom changer, currently it is not encroaching on the mitral valve to be clinically significant Subjective Cardiovascular: Reports: no symptoms Respiratory: Reports: no symptoms Gastrointestinal/Abdominal: Reports: no symptoms Genitourinary: Reports: no symptoms Subjective Patient had cystoscopy today and pruitt replaced. No acute events, extubated in PACU, no complications. Patient anemic, family refused transfusion Objective Last 24 Hour Vital Signs Date Time Temp Pulse Resp B/P (MAP) Pulse Ox O2 Delivery O2 Flow Rate FiO2 12/25/17 16:06 Nasal Cannula 3.0 32 12/25/17 16:06 62 20 Nasal Cannula 3.0 32 12/25/17 16:06 93 Nasal Cannula 3.0 32 12/25/17 16:00 96.3 18 125/82 (96) 93 96.3 12/25/17 16:00 93 12/25/17 14:17 95 115/68 12/25/17 13:01 95 14 99 12/25/17 12:00 85 12/25/17 12:00 97.1 18 122/68 (86) 100 97.1 12/25/17 09:56 98 114/68 12/25/17 09:30 Nasal Cannula 2.0 12/25/17 09:17 97.2 98 16 114/68 100 Nasal Cannula 3 97.2 12/25/17 09:10 102 14 111/64 100 Nasal Cannula 3 12/25/17 09:00 97 15 107/67 100 Simple Mask 6 12/25/17 09:00 Nasal Cannula 2.0 12/25/17 08:55 207.3 97 14 100 12/25/17 08:50 104 13 128/69 100 Simple Mask 6 12/25/17 08:45 100 13 128/70 100 Simple Mask 6 12/25/17 08:40 97 97 14 110/74 100 Simple Mask 6 97.0 12/25/17 06:02 79 118/66 12/25/17 04:00 98.2 101 20 118/66 (83) 97 98.2 12/25/17 04:00 79 12/25/17 00:00 82 12/24/17 23:47 99.3 120 20 121/73 (89) 95 99.3 12/24/17 21:24 118 139/79 12/24/17 21:00 Nasal Cannula 2.0 12/24/17 20:17 118 20 Room Air 21 12/24/17 20:00 153 12/24/17 20:00 97.5 106 18 139/79 (99) 95 97.5 General Appearance: no apparent distress EENT: PERRL/EOMI, normal ENT inspection Neck: non-tender, normal alignment, supple Rhythm: Afib Cardiovascular: normal peripheral pulses, normal rate, regular rhythm Respiratory/Chest: chest wall non-tender, lungs clear, normal breath sounds Abdomen: normal bowel sounds, non tender, soft, no organomegaly Extremities: non-tender, normal inspection Neurologic: vice president global advertising sales II-XII grossly normal Intake and Output 12/24/17 12/25/17 19:00 07:00 Intake Total 75 ml 360 ml Balance 75 ml 360 ml IV Total 75 ml 360 ml # Voids 3 3 # Bowel Movements 1 Laboratory Tests Test 12/24/17 20:20 12/25/17 07:20 Urine Color Brown Urine Appearance Turbid Urine pH 8 (4.5-8.0) Urine Specific [place] 1.015 (1.005-1.035) Urine Protein 3+ (NEGATIVE) H Urine Glucose (UA) Negative (NEGATIVE) Urine Ketones Negative (NEGATIVE) Urine Occult Blood 5+ (NEGATIVE) H Urine Nitrite Negative (NEGATIVE) Urine Bilirubin Negative (NEGATIVE) Urine Urobilinogen Normal MG/DL (0.0-1.0) Urine Leukocyte Esterase 3+ (NEGATIVE) H Urine RBC Tntc /HPF (0 - 2) H Urine WBC Tntc /HPF (0 - 2) H Urine Squamous Epithelial Cells Few /LPF (NONE/OCC) Urine Bacteria Many /HPF (NONE) H White Blood Count 9.6 K/UL (4.8-10.8) Red Blood Count 2.88 M/UL (4.20-5.40) L Hemoglobin 7.3 G/DL (12.0-16.0) L Hematocrit 23.2 % (37.0-47.0) L Mean Corpuscular Volume 80 FL (80-99) Mean Corpuscular Hemoglobin 25.2 PG (27.0-31.0) L Mean Corpuscular Hemoglobin Concent 31.4 G/DL (32.0-36.0) L Red Cell Distribution Width 19.6 % (11.6-14.8) H Platelet Count 215 K/UL (150-450) Mean Platelet Volume 7.0 FL (6.5-10.1) Neutrophils (%) (Auto) % (45.0-75.0) Lymphocytes (%) (Auto) % (20.0-45.0) Monocytes (%) (Auto) % (1.0-10.0) Eosinophils (%) (Auto) % (0.0-3.0) Basophils (%) (Auto) % (0.0-2.0) Differential Total Cells Counted 100 Neutrophils % (Manual) 71 % (45-75) Lymphocytes % (Manual) 17 % (20-45) L Monocytes % (Manual) 12 % (1-10) H Eosinophils % (Manual) 0 % (0-3) Basophils % (Manual) 0 % (0-2) Band Neutrophils 0 % (0-8) Platelet Estimate Adequate Platelet Morphology Normal Polychromasia 1+ Hypochromasia 1+ Anisocytosis 2+ Microcytosis 1+ Ovalocytes 1+ Sodium Level 134 MMOL/L (136-145) L Potassium Level 4.1 MMOL/L (3.5-5.1) Chloride Level 104 MMOL/L (98-107) Carbon Dioxide Level 23 MMOL/L (21-32) Anion Gap 7 mmol/L (5-15) Blood Urea Nitrogen 35 mg/dL (7-18) H Creatinine 2.6 MG/DL (0.55-1.30) H Estimat Glomerular Filtration Rate mL/min (>60) Glucose Level 130 MG/DL (74-106) H Calcium Level 7.8 MG/DL (8.5-10.1) L Ferritin 374 NG/ML (8-388) Total Bilirubin 0.7 MG/DL (0.2-1.0) Aspartate Amino Transf (AST/SGOT) 36 U/L (15-37) Alanine Aminotransferase (ALT/SGPT) 20 U/L (12-78) Alkaline Phosphatase 115 U/L (46-116) Total Protein 6.9 G/DL (6.4-8.2) Albumin 1.5 G/DL (3.4-5.0) L Globulin 5.4 g/dL Albumin/Globulin Ratio 0.3 (1.0-2.7) L Microbiology Date/Time Source Procedure Growth Status 12/24/17 20:20 Straight Cath Urine Culture - Preliminary Resulted Nikolai Brooks M.D. Dec 25, 2017 19:54
[2017-12-25] MEDS: Iron Sucrose 100 MG in NS 55 ML IV SCH (21:00)
--- NOTE | 2017-12-25 21:45 | General Progress Note ---
Assessment/Plan Assessment/Plan - appreciate cards recs and mgt - appreciate OBGYN rec's - appreciate urology rec's - appreciate oncology recs - GI consulted for high residuals with Gtube feeding, appreciate recs - Cr uptrending. Check UA with urine cx. Likely urinary retention causing SUNNY. Urology to d/w son regarding emergent cystoscopy and pruitt placement - WBC uptrending. Will check UA with urine cx, CXR, blood cultures. Will start her on empiric IV ceftriaxone. - on ATC reglan to increase GI motility. patient tolerating feeds at 45 cc/hr with 10cc residuals. Will decrease dosage and change reglan to prn for gastric residuals given SUNNY. No erythromycin given arrhythmia risk - f/u stat CT chest/abdomen/pelvis w/o contrast -- multiple pulmonary nodules concerning for metastasis. also with vaginal mass - f/u tumor markers - serial tn neg - asa, statin - bb - monitor H/H - supportive care Per OBGYN, patient needs biopsy of the vaginal mass but unable to perform this [place] [facility] Placed patient on transfer list to [facility] for further eval. Accepting PETROPHYSICAL ENGINEER/oncology is Dr. Cosmo Adrian. d/w son, Isiah. Per son, no history of cancer. Son agreeable for transfer. Patient does not have the capacity to make her decisions given advanced dementia. DVT ppx: SCD's CODE STATUS: Full Anticipate pt will require 3-4 days of inpatient mgt, anticipate discharge to SNF, [facility] 40 min spent on this case and 23 min dedicated to counseling and or care coordination. Time of note may not reflect time of clinical encounter. Subjective Date patient seen: Dec 25, 2017 Time patient seen: 12:36 ROS Limited/Unobtainable: Yes Allergies: Coded Allergies: No Known Allergies (Unverified , 04/30/16) Subjective - awaiting transfer to [facility] - Hgb downtrended to 7 - Cr uptrending, 2.7 -U/s ordered- f/u results -Nephrology consult - WBC 11 today but no fevers - tolerating tube feeds with no residuals. no reglan given today - minimal bleeding from vaginal area today - atrial flutter but HR better controlled in the 80s Objective Last 24 Hour Vital Signs Date Time Temp Pulse Resp B/P (MAP) Pulse Ox O2 Delivery O2 Flow Rate FiO2 12/25/17 16:06 Nasal Cannula 3.0 32 12/25/17 16:06 62 20 Nasal Cannula 3.0 32 12/25/17 16:06 93 Nasal Cannula 3.0 32 12/25/17 16:00 96.3 18 125/82 (96) 93 96.3 12/25/17 16:00 93 12/25/17 14:17 95 115/68 12/25/17 13:01 95 14 99 12/25/17 12:00 85 12/25/17 12:00 97.1 18 122/68 (86) 100 97.1 12/25/17 09:56 98 114/68 12/25/17 09:30 Nasal Cannula 2.0 12/25/17 09:17 97.2 98 16 114/68 100 Nasal Cannula 3 97.2 12/25/17 09:10 102 14 111/64 100 Nasal Cannula 3 12/25/17 09:00 97 15 107/67 100 Simple Mask 6 12/25/17 09:00 Nasal Cannula 2.0 12/25/17 08:55 207.3 97 14 100 12/25/17 08:50 104 13 128/69 100 Simple Mask 6 12/25/17 08:45 100 13 128/70 100 Simple Mask 6 12/25/17 08:40 97 97 14 110/74 100 Simple Mask 6 97.0 12/25/17 06:02 79 118/66 12/25/17 04:00 98.2 101 20 118/66 (83) 97 98.2 12/25/17 04:00 79 12/25/17 00:00 82 12/24/17 23:47 99.3 120 20 121/73 (89) 95 99.3 Intake and Output 12/24/17 12/25/17 19:00 07:00 Intake Total 75 ml 360 ml Balance 75 ml 360 ml IV Total 75 ml 360 ml # Voids 3 3 # Bowel Movements 1 Laboratory Tests 12/25/17 07:20: White Blood Count 9.6, Red Blood Count 2.88L, Hemoglobin 7.3L, Hematocrit 23.2L , Mean Corpuscular Volume 80, Mean Corpuscular Hemoglobin 25.2L, Mean Corpuscular Hemoglobin Concent 31.4L, Red Cell Distribution Width 19.6H, Platelet Count 215, Mean Platelet Volume 7.0, Neutrophils (%) (Auto) , Lymphocytes (%) (Auto) , Monocytes (%) (Auto) , Eosinophils (%) (Auto) , Basophils (%) (Auto) , Differential Total Cells Counted 100, Neutrophils % ( Manual) 71, Lymphocytes % (Manual) 17L, Monocytes % (Manual) 12H, Eosinophils % (Manual) 0, Basophils % (Manual) 0, Band Neutrophils 0, Platelet Estimate Adequate, Platelet Morphology Normal, Polychromasia 1+, Hypochromasia 1+, Anisocytosis 2+, Microcytosis 1+, Ovalocytes 1+, Sodium Level 134L, Potassium Level 4.1, Chloride Level 104, Carbon Dioxide Level 23, Anion Gap 7, Blood Urea Nitrogen 35H, Creatinine 2.6H, Estimat Glomerular Filtration Rate , Glucose Level 130H, Calcium Level 7.8L, Ferritin 374, Total Bilirubin 0.7, Aspartate Amino Transf (AST/SGOT) 36, Alanine Aminotransferase (ALT/SGPT) 20, Alkaline Phosphatase 115, Total Protein 6.9, Albumin 1.5L, Globulin 5.4, Albumin/ Globulin Ratio 0.3L Height (Feet): 5 Height (Inches): 7.00 Weight (Pounds): 158 General Appearance: no apparent distress EENT: PERRL/EOMI Neck: non-tender Cardiovascular: regularly irregular, irregularly irregular Respiratory/Chest: lungs clear Abdomen: normal bowel sounds Extremities: non-tender Neurologic: alert Skin: no diaphoresis Barrington Wolf M.D. Dec 25, 2017 21:45
[2017-12-25] MEDS: Atorvastatin 80mg tab ORAL SCH (22:49)
[2017-12-26] VITALS (7 sets, daily range): BP systolic 92–138; BP diastolic 60–85
[2017-12-26] MEDS: Metoprolol Tartrate 50mg tab ORAL SCH ×3 (06:33→22:25)
[2017-12-26 07:23] LABS: ALANINE AMINOTRANSFERASE 18 U/L (12-78); ALBUMIN 1.4 G/DL (3.4-5.0); ALBUMIN/GLOBULIN RATIO 0.3 (1.0-2.7); ALKALINE PHOSPHATASE 122 U/L (46-116); ANION GAP 11 mmol/L (5-15); ASPARTATE AMINO TRANSFERASE 46 U/L (15-37); BILIRUBIN,TOTAL 0.7 MG/DL (0.2-1.0); BLOOD UREA NITROGEN 38 mg/dL (7-18); CALCIUM 7.6 MG/DL (8.5-10.1); CARBON DIOXIDE 20 MMOL/L (21-32); CHLORIDE 104 MMOL/L (98-107); CREATININE 2.8 MG/DL (0.55-1.30); POTASSIUM 4.5 MMOL/L (3.5-5.1); SODIUM 135 MMOL/L (136-145)
[2017-12-26] MEDS: D5 1/2NS 1,000 ML IV SCH (08:10)
[2017-12-26] MEDS: levETIRAcetam 500mg/5ml Liquid NG SCH ×2 (08:10→20:47)
[2017-12-26] MEDS: Tamsulosin 0.4mg cap ORAL SCH (08:11)
--- NOTE | 2017-12-26 09:31 | Urology Progress Note ---
Assessment/Plan Assessment/Plan 1. Perineal mass, which may be gynecologic or urologic in origin, but is concerning for malignancy. 2. Urinary incontinence. 3. Probable neurogenic bladder. 4. Renal cyst. 5. SUNNY. 6. Hydronephrosis. &. POD # 1 Cysto/fulguration findings most consistent with malignancy poss primary bladder ca invading vagina or vaginal/cervical ca will need EMAIL DEPLOYMENT SPECIALIST and med/onc f/u monitor renal fxn, h/h no blood transfusion per pt's son anticoagulation held abx as ordered keep pruitt indwelling very slow CBI and hand irrigate pruitt PRN I personally hand irrigated pruitt I personally removed vag pack f/u on path d/w primary service extensively d/w EMAIL DEPLOYMENT SPECIALIST will prob need nephrostomies will likey need transfer to tertiary care center or facility with blood/ transfusion free medicine Subjective Allergies: Coded Allergies: No Known Allergies (Unverified , 04/30/16) Subjective all noted, pt looks comfortable CBI, nurses hand irrigated pruitt no sig bleeding reported Objective Last 24 Hour Vital Signs Date Time Temp Pulse Resp B/P (MAP) Pulse Ox O2 Delivery O2 Flow Rate FiO2 12/26/17 08:36 75 138/62 12/26/17 08:33 138/62 (87) 12/26/17 08:00 97.5 75 20 92/65 (74) 100 97.5 12/26/17 06:33 90 108/60 12/26/17 04:00 87 12/26/17 04:00 97.9 90 19 108/60 (76) 100 97.9 12/26/17 00:00 98.5 63 18 102/71 (81) 95 98.5 12/26/17 00:00 134 12/25/17 22:48 125 112/65 12/25/17 21:00 Nasal Cannula 2.0 12/25/17 20:00 146 12/25/17 20:00 96.8 125 17 112/65 (81) 98 96.8 12/25/17 16:06 Nasal Cannula 3.0 32 12/25/17 16:06 62 20 Nasal Cannula 3.0 32 12/25/17 16:06 93 Nasal Cannula 3.0 32 12/25/17 16:00 96.3 18 125/82 (96) 93 96.3 12/25/17 16:00 93 7/27/18 14:17 95 115/68 12/25/17 13:01 95 14 99 12/25/17 12:00 85 12/25/17 12:00 97.1 18 122/68 (86) 100 97.1 12/25/17 09:56 98 114/68 12/25/17 09:30 Nasal Cannula 2.0 Intake and Output 12/25/17 12/26/17 19:00 07:00 Intake Total 1310 ml 975 ml Output Total 2875 ml 4050 ml Balance -1565 ml -3075 ml IV Total 1310 ml 975 ml Output Urine Total 2825 ml 4050 ml Estimated Blood Loss 50 ml Microbiology Date/Time Source Procedure Growth Status 12/24/17 15:00 Blood Blood Culture - Preliminary NO GROWTH AFTER 24 HOURS Resulted 12/19/17 17:50 Vaginal Gram Stain - Final Complete 12/19/17 17:50 Vaginal Neisseria gonorrhoeae Culture - Final No Neisseria gonorrhoeae isolated Complete 12/18/17 23:04 Nasal Nares MRSA Culture - Final NO METHICILLIN RESISTANT STAPH AUREUS... Complete 12/24/17 20:20 Straight Cath Urine Culture - Preliminary Gram Negative Kailash Resulted 12/18/17 23:04 Rectum VRE Culture - Final Enterococcus Faecalis - Vre Complete 12/18/17 23:04 Rectum - Final NO CARBAPENEM-RESISTANT ENTEROBACTERI... Complete Current Medications Medications (Trade) Dose Ordered Sig/Renea Route PRN Reason Start Time Stop Time Status Last Admin Dose Admin Amlodipine Besylate (Norvasc) 5 mg DAILY ORAL 12/22/17 13:24 01/21/18 13:23 12/26/17 08:36 Atorvastatin Calcium (Lipitor) 80 mg BEDTIME ORAL 12/19/17 21:00 01/18/18 20:59 12/25/17 22:49 Barium Sulfate (Readi-Cat 2) 450 ml NOW PRN ORAL Radiology Procedure 12/21/17 12:23 Ceftriaxone Sodium 1 gm/ Dextrose 55 ml @ 110 mls/hr Q24H IVPB 12/24/17 15:00 12/31/17 14:59 12/25/17 14:18 Dextrose/Sodium Chloride 1,000 ml @ 75 mls/hr [id number] IV 12/19/17 02:45 01/18/18 02:44 12/26/17 08:10 Folic Acid (Folate) 1 mg DAILY ORAL 12/20/17 09:00 01/19/18 08:59 12/26/17 08:11 Furosemide (Lasix) 20 mg DAILY ORAL 12/21/17 13:45 01/20/18 13:44 12/26/17 08:11 Iopamidol (Isovue-300 100ml) 100 ml NOW PRN INJ Radiology Procedure 12/21/17 12:30 Iron Sucrose 100 mg/Sodium Chloride 60 ml @ 125 mls/hr QHS IV 12/26/17 21:00 12/30/17 21:29 Levetiracetam (Keppra) 750 mg Q12HR NG 12/23/17 09:11 01/22/18 09:10 12/26/17 08:10 Metoclopramide HCl (Reglan) 5 mg Q6H PRN NG for gastric residuals >50cc 12/23/17 15:15 01/22/18 15:14 Metoprolol Tartrate (Lopressor) 75 mg EVERY 8 HOURS ORAL 12/23/17 22:00 01/18/18 08:59 12/26/17 06:33 Mirtazapine (Remeron) 15 mg BEDTIME ORAL 12/19/17 21:00 01/18/18 20:59 12/25/17 22:49 Morphine Sulfate (Morphine Sulfate) 2 mg Q3HR PRN IVP For Pain 12/25/17 22:30 01/01/18 22:29 Quetiapine Fumarate (SEROquel) 25 mg Q6H PRN ORAL agitation 12/22/17 15:15 01/21/18 15:14 12/26/17 08:44 Tamsulosin HCl (Flomax) 0.4 mg DAILY ORAL 12/20/17 09:00 01/19/18 08:59 12/26/17 08:11 Laboratory Tests 12/26/17 06:15: Sodium Level 135L, Potassium Level 4.5, Chloride Level 104, Carbon Dioxide Level 20L, Anion Gap 11, Blood Urea Nitrogen 38H, Creatinine 2.8H, Estimat Glomerular Filtration Rate , Glucose Level 94, Calcium Level 7.6L, Total Bilirubin 0.7, Aspartate Amino Transf (AST/SGOT) 46H, Alanine Aminotransferase ( ALT/SGPT) 18, Alkaline Phosphatase 122H, Total Protein 6.6, Albumin 1.4L, Globulin 5.2, Albumin/Globulin Ratio 0.3L Height (Feet): 5 Height (Inches): 7.00 Weight (Pounds): 156 Objective exam stable, no obvious visible bleeding in vaginal area pruitt indwelling, urine relatively yellow/michelle with slow CBI, some debris noted renal u/s (12/25) noted JOSH PENNINGTON Dec 26, 2017 09:31
--- NOTE | 2017-12-26 10:14 | Cardiology Progress Note ---
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 -Hold aspirin due to bleeding - Continue Statin -Rate control with metoprolol 75 mg TID, can not cardiovert due to inability to anticoagulate and bleeding risk -echocardiogram - reviewed, normal LV function, grade III diastolic dysfunction and moderate pulmonary hypertension -Spot dose diuretics to keep negative and reduce filling pressures, lasix 20 mg daily -Rhythm was atrial flutter vs atrial tachycardia, no anticoagulation needed in this rhythm -monitor BP, slowly introduce medications as needed, concern for polypharmacy and hypotension as culprit given 4 anti hypertensive medications -continue norvasc 5 mg daily for now -supportive care -Hysteroscopy for biopsy to determine prognosis - transfer to [facility] -Left atrial myoxma not seen on TTE, would need KARISSA but would not pattern changer and repairer, currently it is not encroaching on the mitral valve to be clinically significant Subjective Respiratory: Reports: no symptoms Gastrointestinal/Abdominal: Reports: no symptoms Genitourinary: Reports: no symptoms Subjective No acute events, vitals stable, vaginal packing removed, pruitt irrigated Objective Last 24 Hour Vital Signs Date Time Temp Pulse Resp B/P (MAP) Pulse Ox O2 Delivery O2 Flow Rate FiO2 12/26/17 09:00 Nasal Cannula 2.0 12/26/17 08:36 75 138/62 12/26/17 08:33 138/62 (87) 12/26/17 08:00 97.5 75 20 92/65 (74) 100 97.5 12/26/17 06:33 90 108/60 12/26/17 04:00 87 12/26/17 04:00 97.9 90 19 108/60 (76) 100 97.9 12/26/17 00:00 98.5 63 18 102/71 (81) 95 98.5 12/26/17 00:00 134 12/25/17 22:48 125 112/65 12/25/17 21:00 Nasal Cannula 2.0 12/25/17 20:00 146 12/25/17 20:00 96.8 125 17 112/65 (81) 98 96.8 12/25/17 16:06 Nasal Cannula 3.0 32 12/25/17 16:06 62 20 Nasal Cannula 3.0 32 12/25/17 16:06 93 Nasal Cannula 3.0 32 12/25/17 16:00 96.3 18 125/82 (96) 93 96.3 12/25/17 16:00 93 12/25/17 14:17 95 115/68 12/25/17 13:01 95 14 99 12/25/17 12:00 85 12/25/17 12:00 97.1 18 122/68 (86) 100 97.1 General Appearance: no apparent distress, alert EENT: PERRL/EOMI Neck: normal alignment, supple, normal inspection, no JVD Rhythm: NSR Cardiovascular: normal peripheral pulses, normal rate, regular rhythm, no gallop/murmur Respiratory/Chest: lungs clear, normal breath sounds Abdomen: normal bowel sounds, non tender Extremities: normal range of motion, non-tender Neurologic: no motor/sensory deficits Intake and Output 12/25/17 12/26/17 19:00 07:00 Intake Total 1310 ml 975 ml Output Total 2875 ml 4050 ml Balance -1565 ml -3075 ml IV Total 1310 ml 975 ml Output Urine Total 2825 ml 4050 ml Estimated Blood Loss 50 ml Laboratory Tests Test 12/26/17 06:15 Sodium Level 135 MMOL/L (136-145) L Potassium Level 4.5 MMOL/L (3.5-5.1) Chloride Level 104 MMOL/L (98-107) Carbon Dioxide Level 20 MMOL/L (21-32) L Anion Gap 11 mmol/L (5-15) Blood Urea Nitrogen 38 mg/dL (7-18) H Creatinine 2.8 MG/DL (0.55-1.30) H Estimat Glomerular Filtration Rate mL/min (>60) Glucose Level 94 MG/DL (74-106) Calcium Level 7.6 MG/DL (8.5-10.1) L Total Bilirubin 0.7 MG/DL (0.2-1.0) Aspartate Amino Transf (AST/SGOT) 46 U/L (15-37) H Alanine Aminotransferase (ALT/SGPT) 18 U/L (12-78) Alkaline Phosphatase 122 U/L (46-116) H Total Protein 6.6 G/DL (6.4-8.2) Albumin 1.4 G/DL (3.4-5.0) L Globulin 5.2 g/dL Albumin/Globulin Ratio 0.3 (1.0-2.7) L Microbiology Date/Time Source Procedure Growth Status 12/24/17 15:00 Blood Blood Culture - Preliminary NO GROWTH AFTER 24 HOURS Resulted 12/24/17 15:00 Blood Blood Culture - Preliminary NO GROWTH AFTER 24 HOURS Resulted 12/24/17 20:20 Straight Cath Urine Culture - Preliminary Gram Negative Kailash Resulted Nikolai Brooks M.D. Dec 26, 2017 10:14
--- NOTE | 2017-12-26 10:23 | 48 Hour Post Anesthesia Eval ---
Post Anesthesia Evaluation Procedure: cystoscopy Date of Evaluation: Dec 26, 2017 Time of Evaluation: 10:21 Blood Pressure Systolic: 132 0: 76 Pulse Rate: 78 Respiratory Rate: 22 Temperature (Fahrenheit): 97.6 O2 Sat by Pulse Oximetry: 98 Airway: patent Nausea: No Vomiting: No Pain Intensity: 2 Hydration Status: adequate Cardiopulmonary Status: stable Mental Status/LOC: patient returned to baseline Follow-up Care/Observations: n/a Post-Anesthesia Complications: none Follow-up care needed: N/A Ron Jones MD Dec 26, 2017 10:22
[2017-12-26 10:35] LABS: HEMATOCRIT 22.4 % (37.0-47.0); HEMOGLOBIN 7.5 G/DL (12.0-16.0); MEAN CORPUSCULAR VOLUME 82 FL (80-99); PLATELET COUNT 230 K/UL (150-450); RED BLOOD COUNT 2.73 M/UL (4.20-5.40); RED CELL DISTRIBUTION WIDTH 21.8 % (11.6-14.8); WHITE BLOOD COUNT 12.5 K/UL (4.8-10.8)
--- NOTE | 2017-12-26 10:35 | General Progress Note ---
Assessment/Plan Status: stable Assessment/Plan #. Heterogeneous mass lesion involving the bladder, with portions of the posterior bladder inseparable from the lower uterine segment/cervix and vagina. Findings are highly concerning for malignancy, either bladder or gynecologic ( vaginal/cervical/uterine) in etiology --> CT C/A/P with iv contrast: Heterogeneous mass lesion within the bladder, contiguous with heterogeneous mass in the vagina highly concerning for malignancy. Multiple bilateral pulmonary nodules most concerning for metastatic disease. Small pelvic lymph nodes. 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 --> tumor markers pending --> eval with uro as needed --> will likely need biopsy with with campus executive director-onc or with cystocsopy with uro #. Anemia due to iron deficiency --> eval for gi bleed as need v vaginal bleed --> iron iv has been completed x 5 days. --> 12/25: Hgb 7.3, IV iron started x5 days. --> appreciate recs from Dr. Chapman (Wall And Floor Tiler) #. Dysphagia, status post gastrostomy tube. #. Chronic atrial fibrillation with history of rapid ventricular response. Rate controlled on aspirin --> anticoag once above worked up #. Hypertension, on multiple hypertensive medications. The time the note was entered does not necessarily correspond to the time the patient was seen. Subjective Date patient seen: Dec 26, 2017 ROS Limited/Unobtainable: Yes Hematologic/Lymphatic: Reports: anemia Allergies: Coded Allergies: No Known Allergies (Unverified , 04/30/16) All Systems: reviewed and negative except above Subjective Pt obtunded. No acute events. DC planning. Objective Last 24 Hour Vital Signs Date Time Temp Pulse Resp B/P (MAP) Pulse Ox O2 Delivery O2 Flow Rate FiO2 12/26/17 10:24 Nasal Cannula 3.0 32 12/26/17 10:24 72 20 Nasal Cannula 3.0 32 12/26/17 10:24 93 Nasal Cannula 3.0 32 12/26/17 10:22 207.7 78 22 98 12/26/17 09:00 Nasal Cannula 2.0 12/26/17 08:36 75 138/62 12/26/17 08:33 138/62 (87) 12/26/17 08:00 97.5 75 20 92/65 (74) 100 97.5 12/26/17 08:00 71 12/26/17 06:33 90 108/60 12/26/17 04:00 87 12/26/17 04:00 97.9 90 19 108/60 (76) 100 97.9 12/26/17 00:00 98.5 63 18 102/71 (81) 95 98.5 12/26/17 00:00 134 12/25/17 22:48 125 112/65 12/25/17 21:00 Nasal Cannula 2.0 12/25/17 20:00 146 12/25/17 20:00 96.8 125 17 112/65 (81) 98 96.8 12/25/17 16:06 Nasal Cannula 3.0 32 12/25/17 16:06 62 20 Nasal Cannula 3.0 32 12/25/17 16:06 93 Nasal Cannula 3.0 32 12/25/17 16:00 96.3 18 125/82 (96) 93 96.3 12/25/17 16:00 93 12/25/17 14:17 95 115/68 12/25/17 13:01 95 14 99 12/25/17 12:00 85 12/25/17 12:00 97.1 18 122/68 (86) 100 97.1 Intake and Output 12/25/17 12/26/17 19:00 07:00 Intake Total 1310 ml 975 ml Output Total 2875 ml 4050 ml Balance -1565 ml -3075 ml IV Total 1310 ml 975 ml Output Urine Total 2825 ml 4050 ml Estimated Blood Loss 50 ml Laboratory Tests 12/26/17 06:15: Sodium Level 135L, Potassium Level 4.5, Chloride Level 104, Carbon Dioxide Level 20L, Anion Gap 11, Blood Urea Nitrogen 38H, Creatinine 2.8H, Estimat Glomerular Filtration Rate , Glucose Level 94, Calcium Level 7.6L, Total Bilirubin 0.7, Aspartate Amino Transf (AST/SGOT) 46H, Alanine Aminotransferase ( ALT/SGPT) 18, Alkaline Phosphatase 122H, Total Protein 6.6, Albumin 1.4L, Globulin 5.2, Albumin/Globulin Ratio 0.3L 12/26/17 10:25: White Blood Count [Pending], Red Blood Count [Pending], Hemoglobin [Pending], Hematocrit [Pending], Mean Corpuscular Volume [Pending], Mean Corpuscular Hemoglobin [Pending], Mean Corpuscular Hemoglobin Concent [Pending], Red Cell Distribution Width [Pending], Platelet Count [Pending], Mean Platelet Volume [ Pending], Neutrophils (%) (Auto) [Pending], Lymphocytes (%) (Auto) [Pending], Monocytes (%) (Auto) [Pending], Eosinophils (%) (Auto) [Pending], Basophils (%) (Auto) [Pending] Height (Feet): 5 Height (Inches): 7.00 Weight (Pounds): 156 General Appearance: no apparent distress, lethargic EENT: PERRL/EOMI Neck: normal alignment Cardiovascular: normal peripheral pulses Respiratory/Chest: no respiratory distress Abdomen: soft Jerry Delarosa MD Dec 26, 2017 10:35
--- NOTE | 2017-12-26 13:24 | Consultation ---
Consult Note Consult Note asked to eval for rising Cr today is 8th hospital day patient examined- non histtorian has 3 way pruitt data reviewed discussed with transplant rn/Plan acute renal failure- Cr 0.9 up to 2.8 Has bilateral [place] due to ACCOUNTS RECEIVABLE ACCOUNTANT mass Sever HypoAlbuminemia Heterogeneous mass lesion involving the bladder, with portions of the posterior bladder inseparable from the lower uterine segment/cervix and vagina. Worsening Anemia Dysphagia, status post gastrostomy tube. Chronic atrial fibrillation with history of rapid ventricular response. Rate controlled on aspirin Hypertension, on multiple hypertensive medications. Encephalopathy Sz disorder h/o CVA / Dementia Plan: Avoid Nephrotoxics Stop Lasix- Stop Folic Stop flomax ? Nephrostomy DC Flomax DC Lipitor per Uro / consultants Aris Ragsdale MD Dec 26, 2017 13:24
[2017-12-26] MEDS: cefTRIAXone 1 GM in D5W 55 ML IVPB SCH (14:01)
[2017-12-26] MEDS: D5NS 1,000 ML IV SCH (14:15)
[2017-12-26] MEDS ORDERED: Sterile Water For Irrig 2000ml IRRIG ONE (15:32)
[2017-12-26] MEDS ORDERED: D5 1/2NS 1000ml IV ONE (15:32)
--- NOTE | 2017-12-26 20:30 | Operative Note - Dictated ---
DATE OF OPERATION: 12/25/2017 PREOPERATIVE DIAGNOSES: Pelvic mass with pelvic bleeding, anemia, acute kidney injury, and difficult catheterization. POSTOPERATIVE DIAGNOSES: Pelvic mass with pelvic bleeding, anemia, acute kidney injury, and difficult catheterization. PROCEDURE PERFORMED: Cystoscopy with extensive fulguration of bladder mass, Prather catheter placement, and biopsy of urethral/vaginal mass. OPERATING SURGEON: Jaret Soares M.D. ANESTHESIOLOGIST: Michelle Palafox CRNA. ANESTHESIA: General. INDICATION FOR PROCEDURE: This is an unfortunate 72-year-old female. She [facility]. She was admitted to the hospital originally because of fall and during the hospital stay, she was noted to have bleeding in the perineal area. She was evaluated by cable puller who saw a urethral mass. The nursing staff were not able to insert the Prather catheter. The patient was monitored clinically. She continued to have bleeding from the perineal area. I did examine the patient also and it appeared that she had a mass that was close to the vaginal and urethral area with some induration of the vaginal wall. CT scan showed a large pelvic mass, which involved the bladder and the vagina. It was difficult to tell, which one is the origin. She was monitored clinically and we basically recommended possible transfer to a tertiary care center for further evaluation. The patient's bleeding was slow, however, she had slow oozing and her hemoglobin did go down and she started having high creatinine level and I felt that the patient need a Prather catheter. At this time, I spoke with the patient's son who informed me that the patient is actually a Yazidi, which I did not know before. I did tell the son that the patient may need blood transfusion because her hemoglobin is dropping and she adamantly refused. I had a long discussion with him that without a blood transfusion she may not be able to survive. I did tell him that we need to place a Prather catheter because she is having acute kidney injury and there maybe a urinary retention. After significant discussion with him, decision was made to bring the patient to the operating room, mainly for placement of a Prather catheter and possible biopsy of this lesion. She has been off anticoagulation. I did tell the patient's son that because he is refusing a blood transfusion, my personal policy is that I do not do any extensive surgery or resections on the patient who are Yazidi because there is always a chance of extensive bleeding and that the procedure that I will be doing would be mainly palliative procedure for cauterization and may need placement of a Prather catheter and tissue biopsy from the outside and most likely the patient will need to go to a tertiary care center for transfusions, blood free center because of a Uatsdin status. Again, this was extensively discussed with the patient's son. It was also extensively discussed with the primary team and possible risks and complications were discussed in regards to the procedures of the above procedures. FINDINGS: The patient was examined in the operating room. I did ask Dr. Tami Chapman from [employer] service to come in and look at the patient also. She appeared to have a mass, which was in the bladder, it had some sessile and papillary components. There was a very small amount of normal bladder visible. The mass involved mostly the base of the bladder, the trigone and the left side is extended to the area of the urethra from the outside. There was some induration along the anterior part of the vagina with significant induration palpable at the base of the vagina near the cervix. Tissue on the outside was very friable and blood when we touched it. The tissue was sloughed off and that what I took for biopsy. Inside of the bladder mass was extensively fulgurated and as was the outside, Prather was placed. PROCEDURE IN DETAIL: Informed consent was obtained from the patient's son and again the patient's son adamantly refused blood transfusion. The patient was then brought to the operating room and then placed in the supine position. Successful general anesthesia was induced. The patient was then placed in modified dorsal supine position. The genital area was then prepped and draped in usual sterile fashion. The patient had been on preoperative IV antibiotics. Time-out was performed. I initially did an exam under anesthesia, there was a large mass that was visible at the urethral meatus and the vaginal area. It appeared that the mass was contiguous in the urethral meatus inside the bladder. The vaginal wall was indurated anteriorly. There was significant induration and possible mass at the end of the vaginal wall near the cervix. At this point, the normal urethra meatus was not visible at all. Basically, I had to palpate and probe to find the urethral meatus, insert the cystoscope in. The tissue that was on the outside was extremely friable and bled easily with just touching it. Some of the tissue did slough off and this was collected for specimen. I then inspected the inside of the bladder. There was a large mass, which involved the base of the bladder completely obliterating the trigone. There was no visible trigone. The left side of the bladder was not also visible, it was completely, this mass that had some papillary and sessile component. There was mild oozing in the surface of the mass, which was extensively cauterized with the . Again because of her Yazidi status, I did not do any cutting or any type of resection within the bladder. I just cauterized and I was able to identify the urethral meatus of the bladder and finally was able to pass 26-Khmer Prather catheter, which was placed in the bladder. At this point, the part of the mass on the outside near the urethral meatus and vagina was identified and again it is a very small segment, which was basically hanging on a small stalk was excised for biopsy. The rest of it was extensively cauterized and hemostasis was obtained. A vaginal pack was placed and the Prather was then place, slow bladder irrigation. The patient was then awakened and was taken to recovery in stable condition. Blood loss is minimal. No complication. Jaret Soares M.D. DR: VENKATESH JOB#: [id number] CC: Melanie Byrne M.D.; Fax#: [phone] Jerry Vicente M.D. Tracie Tineo M.D.
[2017-12-26] MEDS: Iron Sucrose 100 MG in NS 55 ML IV SCH (20:48)
--- NOTE | 2017-12-26 22:36 | General Progress Note ---
Assessment/Plan Status: deteriorating Assessment/Plan - appreciate cards recs and mgt - appreciate OBGYN rec's - appreciate urology rec's - appreciate oncology recs - GI consulted for high residuals with Gtube feeding, appreciate recs - Cr uptrending. Check UA with urine cx. U/S showing hydronephrosis- Renal consulted. Will need PCN's - WBC uptrending. F/u UA with urine cx, CXR, blood cultures. Continue empiric IV ceftriaxone. - on ATC reglan to increase GI motility. patient tolerating feeds at 45 cc/hr with 10cc residuals. Will decrease dosage and change reglan to prn for gastric residuals given SUNNY. No erythromycin given arrhythmia risk - f/u stat CT chest/abdomen/pelvis w/o contrast -- multiple pulmonary nodules concerning for metastasis. also with vaginal mass - f/u tumor markers - serial tn neg - asa, statin - bb - monitor H/H - supportive care Per OBGYN, patient needs biopsy of the vaginal mass but unable to perform this at [facility] [place]. Placed patient on transfer list to [facility] for further eval. Accepting TRANSITION ADVISOR/oncology is Dr. Cosmo Adrian. d/w son, Isiah. Per son, no history of cancer. Son agreeable for transfer. Patient does not have the capacity to make her decisions given advanced dementia. DVT ppx: SCD's CODE STATUS: Full Anticipate pt will require 3-4 days of inpatient mgt, anticipate discharge to SNF, [facility] 45 min spent on this case and 23 min dedicated to counseling and or care coordination. Time of note may not reflect time of clinical encounter. Subjective Date patient seen: Dec 26, 2017 Time patient seen: 09:01 ROS Limited/Unobtainable: Yes Allergies: Coded Allergies: No Known Allergies (Unverified , 04/30/16) All Systems: reviewed and negative except above Subjective Events of overnight noted Hydronephrosis seen on U/S SUNNY worsening Awaiting transfer to tertiary care center Objective Last 24 Hour Vital Signs Date Time Temp Pulse Resp B/P (MAP) Pulse Ox O2 Delivery O2 Flow Rate FiO2 12/26/17 22:25 92 116/69 12/26/17 21:00 Nasal Cannula 2.0 12/26/17 20:00 97.9 92 21 135/85 (102) 95 97.9 12/26/17 19:52 92 Nasal Cannula 3.0 32 12/26/17 19:52 Nasal Cannula 3.0 32 12/26/17 19:46 92 20 Nasal Cannula 3.0 32 12/26/17 19:06 81 12/26/17 16:00 97.1 78 20 125/78 (94) 99 97.1 12/26/17 16:00 80 12/26/17 14:01 80 126/69 12/26/17 12:00 79 12/26/17 11:43 97.2 74 20 126/69 (88) 100 97.2 12/26/17 10:24 Nasal Cannula 3.0 32 12/26/17 10:24 72 20 Nasal Cannula 3.0 32 12/26/17 10:24 93 Nasal Cannula 3.0 32 12/26/17 10:22 207.7 78 22 98 12/26/17 09:00 Nasal Cannula 2.0 12/26/17 08:36 75 138/62 12/26/17 08:33 138/62 (87) 12/26/17 08:00 97.5 75 20 92/65 (74) 100 97.5 12/26/17 08:00 71 12/26/17 06:33 90 108/60 12/26/17 04:00 87 12/26/17 04:00 97.9 90 19 108/60 (76) 100 97.9 12/26/17 00:00 98.5 63 18 102/71 (81) 95 98.5 12/26/17 00:00 134 12/25/17 22:48 125 112/65 Intake and Output 12/25/17 12/26/17 19:00 07:00 Intake Total 1310 ml 975 ml Output Total 2875 ml 4050 ml Balance -1565 ml -3075 ml IV Total 1310 ml 975 ml Output Urine Total 2825 ml 4050 ml Estimated Blood Loss 50 ml Laboratory Tests 12/26/17 06:15: Sodium Level 135L, Potassium Level 4.5, Chloride Level 104, Carbon Dioxide Level 20L, Anion Gap 11, Blood Urea Nitrogen 38H, Creatinine 2.8H, Estimat Glomerular Filtration Rate , Glucose Level 94, Calcium Level 7.6L, Total Bilirubin 0.7, Aspartate Amino Transf (AST/SGOT) 46H, Alanine Aminotransferase ( ALT/SGPT) 18, Alkaline Phosphatase 122H, C-Reactive Protein, Quantitative 15.7H , Total Protein 6.6, Albumin 1.4L, Globulin 5.2, Albumin/Globulin Ratio 0.3L 12/26/17 10:25: White Blood Count 12.5H, Red Blood Count 2.73L, Hemoglobin 7.5L, Hematocrit 22.4L, Mean Corpuscular Volume 82, Mean Corpuscular Hemoglobin 27.3, Mean Corpuscular Hemoglobin Concent 33.4, Red Cell Distribution Width 21.8H, Platelet Count 230, Mean Platelet Volume 6.2L, Neutrophils (%) (Auto) , Lymphocytes (%) (Auto) , Monocytes (%) (Auto) , Eosinophils (%) (Auto) , Basophils (%) (Auto) , Differential Total Cells Counted 100, Neutrophils % ( Manual) 71, Lymphocytes % (Manual) 16L, Monocytes % (Manual) 13H, Eosinophils % (Manual) 0, Basophils % (Manual) 0, Band Neutrophils 0, Platelet Estimate Adequate, Platelet Morphology Normal, Polychromasia 1+, Hypochromasia 1+, Anisocytosis 2+ Height (Feet): 5 Height (Inches): 7.00 Weight (Pounds): 156 General Appearance: lethargic, confused, mild distress EENT: PERRL/EOMI, TMs normal, pharynx normal Neck: non-tender, supple Cardiovascular: normal peripheral pulses, normal rate, regularly irregular Respiratory/Chest: decreased breath sounds Abdomen: normal bowel sounds, non tender, soft Pelvis: normal external exam Extremities: non-tender Edema: no edema noted Arm (L), no edema noted Arm (R) Neurologic: disoriented, unresponsive Lymphatic: normal anterior cervical (L), normal anterior cervical (R), normal posterior cervical (L), normal posterior cervical (R) Barrington Wolf M.D. Dec 26, 2017 22:36
[2017-12-27] VITALS: BP 114/65
[2017-12-27] MEDS: Morphine Sulfate 2mg/ml Inj(IV/IM USE ONLY) IVP PRN ×2 (00:44→18:16)
[2017-12-27 04:00] VITALS: BP 111/59
[2017-12-27] MEDS: Metoprolol Tartrate 50mg tab ORAL SCH ×3 (05:22→21:12)
[2017-12-27 05:49] LABS: BASOPHILS % (AUTO) 0.5 % (0.0-2.0); EOSINOPHILS % (AUTO) 0.2 % (0.0-3.0); HEMOGLOBIN 8.1 G/DL (12.0-16.0); LYMPHOCYTES % (AUTO) 15.6 % (20.0-45.0); MEAN CORPUSCULAR VOLUME 81 FL (80-99); MONOCYTES % (AUTO) 8.5 % (1.0-10.0); NEUTROPHILS % (AUTO) 75.3 % (45.0-75.0); PLATELET COUNT 266 K/UL (150-450); RED BLOOD COUNT 3.19 M/UL (4.20-5.40); RED CELL DISTRIBUTION WIDTH 21.7 % (11.6-14.8); WHITE BLOOD COUNT 9.3 K/UL (4.8-10.8)
[2017-12-27 06:17] LABS: ALANINE AMINOTRANSFERASE 18 U/L (12-78); ALBUMIN 1.9 G/DL (3.4-5.0); ALBUMIN/GLOBULIN RATIO 0.3 (1.0-2.7); ALKALINE PHOSPHATASE 144 U/L (46-116); ANION GAP 10 mmol/L (5-15); ASPARTATE AMINO TRANSFERASE 31 U/L (15-37); BILIRUBIN,TOTAL 0.5 MG/DL (0.2-1.0); BLOOD UREA NITROGEN 34 mg/dL (7-18); CALCIUM 8.2 MG/DL (8.5-10.1); CARBON DIOXIDE 24 MMOL/L (21-32); CHLORIDE 105 MMOL/L (98-107); CHOLESTEROL 56 MG/DL (< 200); CREATINE KINASE 33 U/L (26-308); CREATININE 2.5 MG/DL (0.55-1.30); GAMMA GLUTAMYL TRANSPEPTIDASE 57 U/L (5-85); HDL CHOLESTEROL 19 MG/DL (40-60); POTASSIUM 3.8 MMOL/L (3.5-5.1); SODIUM 139 MMOL/L (136-145); TRIGLYCERIDES 92 MG/DL (30-150)
[2017-12-27 08:00] VITALS: BP 119/68
--- NOTE | 2017-12-27 08:41 | General Progress Note ---
Assessment/Plan Status: not improved Assessment/Plan - appreciate cards recs and mgt - appreciate OBGYN rec's - appreciate urology rec's - appreciate oncology recs -appreciate ID recs -appreciate Renal recs - GI consulted for high residuals with Gtube feeding, appreciate recs - Cr plateauing . U/S showing hydronephrosis- Renal recs appreciated. Will need PCN's - WBC uptrending. Urine cx with ESBL producing E.coli - ID consulted- recs appreciated- start carbapenem. - on ATC reglan to increase GI motility. patient tolerating feeds at 45 cc/hr with 10cc residuals. Will decrease dosage and change reglan to prn for gastric residuals given SUNNY. No erythromycin given arrhythmia risk - f/u stat CT chest/abdomen/pelvis w/o contrast -- multiple pulmonary nodules concerning for metastasis. also with vaginal mass - f/u tumor markers - serial tn neg - asa, statin - bb - monitor H/H - supportive care Per OBGYN, patient needs biopsy of the vaginal mass but unable to perform this at [facility] [place]. Placed patient on transfer list to [facility] for further eval. Accepting ROLLER PRINTING SUPERVISOR/oncology is Dr. Cosmo Adrian. d/w son, Isiah. Per son, no history of cancer. Son agreeable for transfer. Patient does not have the capacity to make her decisions given advanced dementia. DVT ppx: SCD's CODE STATUS: Full Anticipate pt will require 3-4 days of inpatient mgt, anticipate discharge to SNF, [facility] 45 min spent on this case and 23 min dedicated to counseling and or care coordination. Time of note may not reflect time of clinical encounter. Subjective Date patient seen: Dec 27, 2017 Time patient seen: 09:02 ROS Limited/Unobtainable: Yes Allergies: Coded Allergies: No Known Allergies (Unverified , 04/30/16) All Systems: reviewed and negative except above Subjective Events of overnight noted SUNNY improved slightly Awaiting transfer to tertiary care center Objective Last 24 Hour Vital Signs Date Time Temp Pulse Resp B/P (MAP) Pulse Ox O2 Delivery O2 Flow Rate FiO2 12/27/17 05:22 88 111/59 12/27/17 04:00 97.8 88 18 111/59 (76) 100 97.8 12/27/17 04:00 104 12/27/17 00:00 97.7 95 20 114/65 (81) 100 97.7 12/26/17 23:53 91 12/26/17 22:25 92 116/69 12/26/17 21:00 Nasal Cannula 2.0 12/26/17 20:00 97.9 92 21 135/85 (102) 95 97.9 12/26/17 19:52 92 Nasal Cannula 3.0 32 12/26/17 19:52 Nasal Cannula 3.0 32 12/26/17 19:46 92 20 Nasal Cannula 3.0 32 12/26/17 19:06 81 12/26/17 16:00 97.1 78 20 125/78 (94) 99 97.1 12/26/17 16:00 80 12/26/17 14:01 80 126/69 12/26/17 12:00 79 12/26/17 11:43 97.2 74 20 126/69 (88) 100 97.2 12/26/17 10:24 Nasal Cannula 3.0 32 12/26/17 10:24 72 20 Nasal Cannula 3.0 32 12/26/17 10:24 93 Nasal Cannula 3.0 32 12/26/17 10:22 207.7 78 22 98 12/26/17 09:00 Nasal Cannula 2.0 Intake and Output 12/26/17 12/27/17 19:00 07:00 Output Total 1250 ml Balance -1250 ml Output Urine Total 1250 ml Laboratory Tests 12/26/17 10:25: White Blood Count 12.5H, Red Blood Count 2.73L, Hemoglobin 7.5L, Hematocrit 22.4L, Mean Corpuscular Volume 82, Mean Corpuscular Hemoglobin 27.3, Mean Corpuscular Hemoglobin Concent 33.4, Red Cell Distribution Width 21.8H, Platelet Count 230, Mean Platelet Volume 6.2L, Neutrophils (%) (Auto) , Lymphocytes (%) (Auto) , Monocytes (%) (Auto) , Eosinophils (%) (Auto) , Basophils (%) (Auto) , Differential Total Cells Counted 100, Neutrophils % ( Manual) 71, Lymphocytes % (Manual) 16L, Monocytes % (Manual) 13H, Eosinophils % (Manual) 0, Basophils % (Manual) 0, Band Neutrophils 0, Platelet Estimate Adequate, Platelet Morphology Normal, Polychromasia 1+, Hypochromasia 1+, Anisocytosis 2+ 12/27/17 05:30: White Blood Count 9.3, Red Blood Count 3.19L, Hemoglobin 8.1L, Hematocrit 26.0L , Mean Corpuscular Volume 81, Mean Corpuscular Hemoglobin 25.4L, Mean Corpuscular Hemoglobin Concent 31.1L, Red Cell Distribution Width 21.7H, Platelet Count 266, Mean Platelet Volume 6.0L, Neutrophils (%) (Auto) 75.3H, Lymphocytes (%) (Auto) 15.6L, Monocytes (%) (Auto) 8.5, Eosinophils (%) (Auto) 0.2, Basophils (%) (Auto) 0.5, Sodium Level 139, Potassium Level 3.8, Chloride Level 105, Carbon Dioxide Level 24, Anion Gap 10, Blood Urea Nitrogen 34H, Creatinine 2.5H, Estimat Glomerular Filtration Rate , Glucose Level 165H, Hemoglobin A1c 5.4, Uric Acid 8.9H, Calcium Level 8.2L, Phosphorus Level 4.0, Magnesium Level 1.8, Total Bilirubin 0.5, Gamma Glutamyl Transpeptidase 57, Aspartate Amino Transf (AST/SGOT) 31, Alanine Aminotransferase (ALT/SGPT) 18, Alkaline Phosphatase 144H, Total Creatine Kinase 33, Troponin I 0.007, Pro-B- Type Natriuretic Peptide 8225H, Total Protein 7.4, Albumin 1.9L, Globulin 5.5, Albumin/Globulin Ratio 0.3L, Triglycerides Level 92, Cholesterol Level 56, LDL Cholesterol 37, HDL Cholesterol 19L, Cholesterol/HDL Ratio 2.9L, Lipase 47L, Thyroid Stimulating Hormone (TSH) 1.693 Height (Feet): 5 Height (Inches): 7.00 Weight (Pounds): 154 General Appearance: lethargic, confused, mild distress EENT: PERRL/EOMI Neck: non-tender, supple Cardiovascular: normal peripheral pulses, normal rate, regularly irregular Respiratory/Chest: decreased breath sounds Abdomen: normal bowel sounds, soft, no mass Pelvis: normal external exam Extremities: normal range of motion Edema: mild edema Neurologic: mushroom sorter grader II-XII grossly normal Skin: normal pigmentation Lymphatic: normal anterior cervical (L), normal anterior cervical (R) Barrington Wolf M.D. Dec 27, 2017 08:41
[2017-12-27] MEDS: levETIRAcetam 500mg/5ml Liquid NG SCH ×2 (08:45→21:11)
[2017-12-27] MEDS: D5NS 1,000 ML IV SCH (09:24)
--- NOTE | 2017-12-27 09:27 | Urology Progress Note ---
Assessment/Plan Assessment/Plan 1. Perineal mass, which may be gynecologic or urologic in origin, but is concerning for malignancy. 2. Urinary incontinence. 3. Probable neurogenic bladder. 4. Renal cyst. 5. SUNNY. 6. Hydronephrosis. &. POD # 2 Cysto/fulguration findings most consistent with malignancy poss primary bladder ca invading vagina or vaginal/cervical ca will need FUNERAL HOME ATTENDANT and med/onc f/u monitor renal fxn, h/h no blood transfusion per pt's son anticoagulation held abx as ordered keep pruitt indwelling sto CBI and hand irrigate pruitt PRN I personally hand irrigated pruitt f/u on path d/w primary service extensively d/w FUNERAL HOME ATTENDANT will prob need nephrostomies will likey need transfer to tertiary care center or facility with blood/ transfusion free medicine Subjective Allergies: Coded Allergies: No Known Allergies (Unverified , 04/30/16) Subjective all noted, pt looks comfortable very slow CBI, nurses hand irrigated pruitt no sig bleeding reported Objective Last 24 Hour Vital Signs Date Time Temp Pulse Resp B/P (MAP) Pulse Ox O2 Delivery O2 Flow Rate FiO2 12/27/17 09:00 Nasal Cannula 2.0 12/27/17 08:45 93 112/65 12/27/17 07:12 Nasal Cannula 3.0 32 12/27/17 07:12 93 Nasal Cannula 3.0 32 12/27/17 05:22 88 111/59 12/27/17 04:00 97.8 88 18 111/59 (76) 100 97.8 12/27/17 04:00 104 12/27/17 00:00 97.7 95 20 114/65 (81) 100 97.7 12/26/17 23:53 91 12/26/17 22:25 92 116/69 12/26/17 21:00 Nasal Cannula 2.0 12/26/17 20:00 97.9 92 21 135/85 (102) 95 97.9 12/26/17 19:52 92 Nasal Cannula 3.0 32 12/26/17 19:52 Nasal Cannula 3.0 32 12/26/17 19:46 92 20 Nasal Cannula 3.0 32 12/26/17 19:06 81 12/26/17 16:00 97.1 78 20 125/78 (94) 99 97.1 12/26/17 16:00 80 12/26/17 14:01 80 126/69 12/26/17 12:00 79 12/26/17 11:43 97.2 74 20 126/69 (88) 100 97.2 12/26/17 10:24 Nasal Cannula 3.0 32 12/26/17 10:24 72 20 Nasal Cannula 3.0 32 12/26/17 10:24 93 Nasal Cannula 3.0 32 12/26/17 10:22 207.7 78 22 98 Intake and Output 12/26/17 12/27/17 19:00 07:00 Output Total 1250 ml Balance -1250 ml Output Urine Total 1250 ml Microbiology Date/Time Source Procedure Growth Status 12/24/17 15:00 Blood Blood Culture - Preliminary NO GROWTH AFTER 48 HOURS Resulted 12/19/17 17:50 Vaginal Gram Stain - Final Complete 12/19/17 17:50 Vaginal Neisseria gonorrhoeae Culture - Final No Neisseria gonorrhoeae isolated Complete 12/18/17 23:04 Nasal Nares MRSA Culture - Final NO METHICILLIN RESISTANT STAPH AUREUS... Complete 12/24/17 20:20 Straight Cath Urine Culture - Preliminary Escherichia Coli - Esbl Gram Negative Bacillus 2 Resulted 12/18/17 23:04 Rectum VRE Culture - Final Enterococcus Faecalis - Vre Complete 12/18/17 23:04 Rectum - Final NO CARBAPENEM-RESISTANT ENTEROBACTERI... Complete Current Medications Medications (Trade) Dose Ordered Sig/Renea Route PRN Reason Start Time Stop Time Status Last Admin Dose Admin Amlodipine Besylate (Norvasc) 5 mg DAILY ORAL 12/22/17 13:24 01/21/18 13:23 12/27/17 08:45 Barium Sulfate (Readi-Cat 2) 450 ml NOW PRN ORAL Radiology Procedure 12/21/17 12:23 Ceftriaxone Sodium 1 gm/ Dextrose 55 ml @ 110 mls/hr Q24H IVPB 12/24/17 15:00 12/31/17 14:59 12/26/17 14:01 Dextrose/Sodium Chloride 1,000 ml @ 50 mls/hr Q20H IV 12/26/17 14:15 01/25/18 14:14 12/27/17 09:24 Iopamidol (Isovue-300 100ml) 100 ml NOW PRN INJ Radiology Procedure 12/21/17 12:30 Iron Sucrose 100 mg/Sodium Chloride 60 ml @ 125 mls/hr QHS IV 12/26/17 21:00 12/30/17 21:29 12/26/17 20:48 Levetiracetam (Keppra) 750 mg Q12HR NG 12/23/17 09:11 01/22/18 09:10 12/27/17 08:45 Metoclopramide HCl (Reglan) 5 mg Q6H PRN NG for gastric residuals >50cc 12/23/17 15:15 01/22/18 15:14 Metoprolol Tartrate (Lopressor) 75 mg EVERY 8 HOURS ORAL 12/23/17 22:00 01/18/18 08:59 12/27/17 05:22 Mirtazapine (Remeron) 15 mg BEDTIME ORAL 12/19/17 21:00 01/18/18 20:59 12/26/17 20:47 Morphine Sulfate (Morphine Sulfate) 2 mg Q3HR PRN IVP For Pain 12/25/17 22:30 01/01/18 22:29 12/27/17 00:44 Quetiapine Fumarate (SEROquel) 25 mg Q6H PRN ORAL agitation 12/22/17 15:15 01/21/18 15:14 12/26/17 08:44 Laboratory Tests 12/26/17 10:25: White Blood Count 12.5H, Red Blood Count 2.73L, Hemoglobin 7.5L, Hematocrit 22.4L, Mean Corpuscular Volume 82, Mean Corpuscular Hemoglobin 27.3, Mean Corpuscular Hemoglobin Concent 33.4, Red Cell Distribution Width 21.8H, Platelet Count 230, Mean Platelet Volume 6.2L, Neutrophils (%) (Auto) , Lymphocytes (%) (Auto) , Monocytes (%) (Auto) , Eosinophils (%) (Auto) , Basophils (%) (Auto) , Differential Total Cells Counted 100, Neutrophils % ( Manual) 71, Lymphocytes % (Manual) 16L, Monocytes % (Manual) 13H, Eosinophils % (Manual) 0, Basophils % (Manual) 0, Band Neutrophils 0, Platelet Estimate Adequate, Platelet Morphology Normal, Polychromasia 1+, Hypochromasia 1+, Anisocytosis 2+ 12/27/17 05:30: White Blood Count 9.3, Red Blood Count 3.19L, Hemoglobin 8.1L, Hematocrit 26.0L , Mean Corpuscular Volume 81, Mean Corpuscular Hemoglobin 25.4L, Mean Corpuscular Hemoglobin Concent 31.1L, Red Cell Distribution Width 21.7H, Platelet Count 266, Mean Platelet Volume 6.0L, Neutrophils (%) (Auto) 75.3H, Lymphocytes (%) (Auto) 15.6L, Monocytes (%) (Auto) 8.5, Eosinophils (%) (Auto) 0.2, Basophils (%) (Auto) 0.5, Sodium Level 139, Potassium Level 3.8, Chloride Level 105, Carbon Dioxide Level 24, Anion Gap 10, Blood Urea Nitrogen 34H, Creatinine 2.5H, Estimat Glomerular Filtration Rate , Glucose Level 165H, Hemoglobin A1c 5.4, Uric Acid 8.9H, Calcium Level 8.2L, Phosphorus Level 4.0, Magnesium Level 1.8, Total Bilirubin 0.5, Gamma Glutamyl Transpeptidase 57, Aspartate Amino Transf (AST/SGOT) 31, Alanine Aminotransferase (ALT/SGPT) 18, Alkaline Phosphatase 144H, Total Creatine Kinase 33, Troponin I 0.007, Pro-B- Type Natriuretic Peptide 8225H, Total Protein 7.4, Albumin 1.9L, Globulin 5.5, Albumin/Globulin Ratio 0.3L, Triglycerides Level 92, Cholesterol Level 56, LDL Cholesterol 37, HDL Cholesterol 19L, Cholesterol/HDL Ratio 2.9L, Lipase 47L, Thyroid Stimulating Hormone (TSH) 1.693 Height (Feet): 5 Height (Inches): 7.00 Weight (Pounds): 154 Objective exam stable, no obvious visible bleeding in vaginal area pruitt indwelling, urine relatively yellow/michelle with slow CBI, some debris noted renal u/s (12/25) noted JOSH PENNINGTON Dec 27, 2017 09:27
[2017-12-27 12:00] VITALS: BP_SYST 120; BP_SYST 129; BP_DIAS 73; BP_DIAS 75
--- NOTE | 2017-12-27 13:33 | Nephrology Progress Note ---
Assessment/Plan Problem List: (1) Hydronephrosis Assessment: BILATERAL (2) Acute kidney injury (3) Toxic metabolic encephalopathy (4) Atrial fibrillation Assessment acute renal failure- Cr 0.9 up to 2.8 today down to 2.5 Has bilateral [place] due to LABEL DRIER mass Sever HypoAlbuminemia Heterogeneous mass lesion involving the bladder, with portions of the posterior bladder inseparable from the lower uterine segment/cervix and vagina. Worsening Anemia Dysphagia, status post gastrostomy tube. Chronic atrial fibrillation with history of rapid ventricular response. Rate controlled on aspirin Hypertension, on multiple hypertensive medications. Encephalopathy Sz disorder h/o CVA / Dementia Plan Avoid Nephrotoxics monitor renal parameters Stop Lasix- Stop Folic Stop flomax ? Nephrostomy DC Flomax DC Lipitor per Uro / consultants Subjective ROS Limited/Unobtainable: No Constitutional: Reports: malaise, weakness Objective Objective Last 24 Hour Vital Signs Date Time Temp Pulse Resp B/P (MAP) Pulse Ox O2 Delivery O2 Flow Rate FiO2 12/27/17 09:00 Nasal Cannula 2.0 12/27/17 08:45 93 112/65 12/27/17 08:00 97.7 88 20 119/68 (85) 99 97.7 12/27/17 08:00 84 12/27/17 07:12 Nasal Cannula 3.0 32 12/27/17 07:12 93 Nasal Cannula 3.0 32 12/27/17 05:22 88 111/59 12/27/17 04:00 97.8 88 18 111/59 (76) 100 97.8 12/27/17 04:00 104 12/27/17 00:00 97.7 95 20 114/65 (81) 100 97.7 12/26/17 23:53 91 12/26/17 22:25 92 116/69 12/26/17 21:00 Nasal Cannula 2.0 12/26/17 20:00 97.9 92 21 135/85 (102) 95 97.9 12/26/17 19:52 92 Nasal Cannula 3.0 32 12/26/17 19:52 Nasal Cannula 3.0 32 12/26/17 19:46 92 20 Nasal Cannula 3.0 32 12/26/17 19:06 81 12/26/17 16:00 97.1 78 20 125/78 (94) 99 97.1 12/26/17 16:00 80 7/28/18 14:01 80 126/69 Intake and Output 12/26/17 12/27/17 19:00 07:00 Output Total 1250 ml Balance -1250 ml Output Urine Total 1250 ml Laboratory Tests 12/27/17 05:30: White Blood Count 9.3, Red Blood Count 3.19L, Hemoglobin 8.1L, Hematocrit 26.0L , Mean Corpuscular Volume 81, Mean Corpuscular Hemoglobin 25.4L, Mean Corpuscular Hemoglobin Concent 31.1L, Red Cell Distribution Width 21.7H, Platelet Count 266, Mean Platelet Volume 6.0L, Neutrophils (%) (Auto) 75.3H, Lymphocytes (%) (Auto) 15.6L, Monocytes (%) (Auto) 8.5, Eosinophils (%) (Auto) 0.2, Basophils (%) (Auto) 0.5, Sodium Level 139, Potassium Level 3.8, Chloride Level 105, Carbon Dioxide Level 24, Anion Gap 10, Blood Urea Nitrogen 34H, Creatinine 2.5H, Estimat Glomerular Filtration Rate , Glucose Level 165H, Hemoglobin A1c 5.4, Uric Acid 8.9H, Calcium Level 8.2L, Phosphorus Level 4.0, Magnesium Level 1.8, Total Bilirubin 0.5, Gamma Glutamyl Transpeptidase 57, Aspartate Amino Transf (AST/SGOT) 31, Alanine Aminotransferase (ALT/SGPT) 18, Alkaline Phosphatase 144H, Total Creatine Kinase 33, Troponin I 0.007, Pro-B- Type Natriuretic Peptide 8225H, Total Protein 7.4, Albumin 1.9L, Globulin 5.5, Albumin/Globulin Ratio 0.3L, Triglycerides Level 92, Cholesterol Level 56, LDL Cholesterol 37, HDL Cholesterol 19L, Cholesterol/HDL Ratio 2.9L, Lipase 47L, Thyroid Stimulating Hormone (TSH) 1.693 Height (Feet): 5 Height (Inches): 7.00 Weight (Pounds): 154 General Appearance: no apparent distress, lethargic Cardiovascular: tachycardia Abdomen: soft Objective no other change Aris Ragsdale MD Dec 27, 2017 13:33
--- NOTE | 2017-12-27 15:00 | Infectious Diseases Prog Note ---
Assessment/Plan Assessment/Plan Full consult to follow: A) 1) esbl e.coli uti, ? pna on chest x-ray 2) pmh noted 3) allergies - nkda P) 1) meropenem 2) check sc, labs and chest x-ray 3) thank you Subjective Allergies: Coded Allergies: No Known Allergies (Unverified , 04/30/16) Objective Vital Signs Last 24 Hour Vital Signs Date Time Temp Pulse Resp B/P (MAP) Pulse Ox O2 Delivery O2 Flow Rate FiO2 12/27/17 14:22 78 120/73 12/27/17 09:00 Nasal Cannula 2.0 12/27/17 08:45 93 112/65 12/27/17 08:00 97.7 88 20 119/68 (85) 99 97.7 12/27/17 08:00 84 12/27/17 07:12 Nasal Cannula 3.0 32 12/27/17 07:12 93 Nasal Cannula 3.0 32 12/27/17 05:22 88 111/59 12/27/17 04:00 97.8 88 18 111/59 (76) 100 97.8 12/27/17 04:00 104 12/27/17 00:00 97.7 95 20 114/65 (81) 100 97.7 12/26/17 23:53 91 12/26/17 22:25 92 116/69 12/26/17 21:00 Nasal Cannula 2.0 12/26/17 20:00 97.9 92 21 135/85 (102) 95 97.9 12/26/17 19:52 92 Nasal Cannula 3.0 32 12/26/17 19:52 Nasal Cannula 3.0 32 12/26/17 19:46 92 20 Nasal Cannula 3.0 32 12/26/17 19:06 81 12/26/17 16:00 97.1 78 20 125/78 (94) 99 97.1 12/26/17 16:00 80 Height (Feet): 5 Height (Inches): 7.00 Weight (Pounds): 154 Microbiology Date/Time Source Procedure Growth Status 12/24/17 15:00 Blood Blood Culture - Preliminary NO GROWTH AFTER 48 HOURS Resulted 12/24/17 15:00 Blood Blood Culture - Preliminary NO GROWTH AFTER 48 HOURS Resulted 12/24/17 20:20 Straight Cath Urine Culture - Preliminary Escherichia Coli - Esbl Gram Negative Bacillus 2 Resulted Laboratory Tests Test 12/27/17 05:30 12/27/17 06:30 White Blood Count 9.3 K/UL (4.8-10.8) Red Blood Count 3.19 M/UL (4.20-5.40) L Hemoglobin 8.1 G/DL (12.0-16.0) L Hematocrit 26.0 % (37.0-47.0) L Mean Corpuscular Volume 81 FL (80-99) Mean Corpuscular Hemoglobin 25.4 PG (27.0-31.0) L Mean Corpuscular Hemoglobin Concent 31.1 G/DL (32.0-36.0) L Red Cell Distribution Width 21.7 % (11.6-14.8) H Platelet Count 266 K/UL (150-450) Mean Platelet Volume 6.0 FL (6.5-10.1) L Neutrophils (%) (Auto) 75.3 % (45.0-75.0) H Lymphocytes (%) (Auto) 15.6 % (20.0-45.0) L Monocytes (%) (Auto) 8.5 % (1.0-10.0) Eosinophils (%) (Auto) 0.2 % (0.0-3.0) Basophils (%) (Auto) 0.5 % (0.0-2.0) Sodium Level 139 MMOL/L (136-145) Potassium Level 3.8 MMOL/L (3.5-5.1) Chloride Level 105 MMOL/L (98-107) Carbon Dioxide Level 24 MMOL/L (21-32) Anion Gap 10 mmol/L (5-15) Blood Urea Nitrogen 34 mg/dL (7-18) H Creatinine 2.5 MG/DL (0.55-1.30) H Estimat Glomerular Filtration Rate mL/min (>60) Glucose Level 165 MG/DL (74-106) H Hemoglobin A1c 5.4 % (4.3-6.0) Uric Acid 8.9 MG/DL (2.6-7.2) H Calcium Level 8.2 MG/DL (8.5-10.1) L Phosphorus Level 4.0 MG/DL (2.5-4.9) Magnesium Level 1.8 MG/DL (1.8-2.4) Total Bilirubin 0.5 MG/DL (0.2-1.0) Gamma Glutamyl Transpeptidase 57 U/L (5-85) Aspartate Amino Transf (AST/SGOT) 31 U/L (15-37) Alanine Aminotransferase (ALT/SGPT) 18 U/L (12-78) Alkaline Phosphatase 144 U/L (46-116) H Total Creatine Kinase 33 U/L (26-308) Troponin I 0.007 ng/mL (0.000-0.056) Pro-B-Type Natriuretic Peptide 8225 pg/mL (0-125) H Total Protein 7.4 G/DL (6.4-8.2) Albumin 1.9 G/DL (3.4-5.0) L Globulin 5.5 g/dL Albumin/Globulin Ratio 0.3 (1.0-2.7) L Triglycerides Level 92 MG/DL (30-150) Cholesterol Level 56 MG/DL (< 200) LDL Cholesterol 37 mg/dL (<100) HDL Cholesterol 19 MG/DL (40-60) L Cholesterol/HDL Ratio 2.9 (3.3-4.4) L Lipase 47 U/L (73-393) L Thyroid Stimulating Hormone (TSH) 1.693 uiU/mL (0.358-3.740) C-Reactive Protein, Quantitative 18.2 mg/dL (0.00-0.90) H Current Medications Medications (Trade) Dose Ordered Sig/Renea Route PRN Reason Start Time Stop Time Status Last Admin Dose Admin Barium Sulfate (Readi-Cat 2) 450 ml NOW PRN ORAL Radiology Procedure 12/21/17 12:23 Dextrose/Sodium Chloride 1,000 ml @ 50 mls/hr Q20H IV 12/26/17 14:15 01/25/18 14:14 12/27/17 09:24 Iopamidol (Isovue-300 100ml) 100 ml NOW PRN INJ Radiology Procedure 12/21/17 12:30 Iron Sucrose 100 mg/Sodium Chloride 60 ml @ 125 mls/hr QHS IV 12/26/17 21:00 12/30/17 21:29 12/26/17 20:48 Levetiracetam (Keppra) 750 mg Q12HR NG 12/23/17 09:11 01/22/18 09:10 12/27/17 08:45 Metoclopramide HCl (Reglan) 5 mg Q6H PRN NG for gastric residuals >50cc 12/23/17 15:15 01/22/18 15:14 Metoprolol Tartrate (Lopressor) 75 mg EVERY 8 HOURS ORAL 12/23/17 22:00 01/18/18 08:59 12/27/17 14:22 Mirtazapine (Remeron) 15 mg BEDTIME ORAL 12/19/17 21:00 01/18/18 20:59 12/26/17 20:47 Morphine Sulfate (Morphine Sulfate) 2 mg Q3HR PRN IVP For Pain 12/25/17 22:30 01/01/18 22:29 12/27/17 00:44 Quetiapine Fumarate (SEROquel) 25 mg Q6H PRN ORAL agitation 12/22/17 15:15 01/21/18 15:14 12/26/17 08:44 Bella Valdes MD Dec 27, 2017 15:00
[2017-12-27] MEDS: Meropenem 500mg in NS 55ml IVPB SCH (15:46)
[2017-12-27 16:00] VITALS: BP 129/75
--- NOTE | 2017-12-27 16:03 | General Progress Note ---
Assessment/Plan Status: unchanged Assessment/Plan #. Heterogeneous mass lesion involving the bladder, with portions of the posterior bladder inseparable from the lower uterine segment/cervix and vagina. Findings are highly concerning for malignancy, either bladder or gynecologic ( vaginal/cervical/uterine) in etiology --> CT C/A/P with iv contrast: Heterogeneous mass lesion within the bladder, contiguous with heterogeneous mass in the vagina highly concerning for malignancy. Multiple bilateral pulmonary nodules most concerning for metastatic disease. Small pelvic lymph nodes. 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 --> tumor markers pending, cea is elevated approx 42 --> eval with uro as needed, reviewed his recs, appreciated --> will likely need biopsy with with construction trench digger-onc or with cystocsopy with uro --> To be managed as outpatient once stabilized v transfer to higher level of care #. Anemia due to iron deficiency --> eval for gi bleed as need v vaginal bleed --> iron iv has been completed x 5 days. --> 12/25: Hgb 7.3, IV iron started x5 days. --> appreciate recs from Dr. Chapman (Inventory Planner) --> Jehovahs witness, refusing transfusion #. Dysphagia, status post gastrostomy tube. #. Chronic atrial fibrillation with history of rapid ventricular response. Rate controlled on aspirin --> anticoag hold given bleeding and JW #. Hypertension, on multiple hypertensive medications. The time the note was entered does not necessarily correspond to the time the patient was seen. Subjective Date patient seen: Dec 27, 2017 ROS Limited/Unobtainable: Yes Hematologic/Lymphatic: Reports: anemia Allergies: Coded Allergies: No Known Allergies (Unverified , 04/30/16) All Systems: reviewed and negative except above Subjective Pt awake and confused. No acute events. Hydronephrosis seen on U/S. Vaginal mass to be managed as outpatient once stabilized. Objective Last 24 Hour Vital Signs Date Time Temp Pulse Resp B/P (MAP) Pulse Ox O2 Delivery O2 Flow Rate FiO2 12/27/17 14:22 78 120/73 12/27/17 09:00 Nasal Cannula 2.0 12/27/17 08:45 93 112/65 12/27/17 08:00 97.7 88 20 119/68 (85) 99 97.7 12/27/17 08:00 84 12/27/17 07:12 Nasal Cannula 3.0 32 12/27/17 07:12 93 Nasal Cannula 3.0 32 12/27/17 05:22 88 111/59 12/27/17 04:00 97.8 88 18 111/59 (76) 100 97.8 12/27/17 04:00 104 12/27/17 00:00 97.7 95 20 114/65 (81) 100 97.7 12/26/17 23:53 91 12/26/17 22:25 92 116/69 12/26/17 21:00 Nasal Cannula 2.0 12/26/17 20:00 97.9 92 21 135/85 (102) 95 97.9 12/26/17 19:52 92 Nasal Cannula 3.0 32 12/26/17 19:52 Nasal Cannula 3.0 32 12/26/17 19:46 92 20 Nasal Cannula 3.0 32 12/26/17 19:06 81 12/26/17 16:00 97.1 78 20 125/78 (94) 99 97.1 12/26/17 16:00 80 Intake and Output 12/26/17 12/27/17 19:00 07:00 Output Total 1250 ml Balance -1250 ml Output Urine Total 1250 ml Laboratory Tests 12/27/17 05:30: White Blood Count 9.3, Red Blood Count 3.19L, Hemoglobin 8.1L, Hematocrit 26.0L , Mean Corpuscular Volume 81, Mean Corpuscular Hemoglobin 25.4L, Mean Corpuscular Hemoglobin Concent 31.1L, Red Cell Distribution Width 21.7H, Platelet Count 266, Mean Platelet Volume 6.0L, Neutrophils (%) (Auto) 75.3H, Lymphocytes (%) (Auto) 15.6L, Monocytes (%) (Auto) 8.5, Eosinophils (%) (Auto) 0.2, Basophils (%) (Auto) 0.5, Sodium Level 139, Potassium Level 3.8, Chloride Level 105, Carbon Dioxide Level 24, Anion Gap 10, Blood Urea Nitrogen 34H, Creatinine 2.5H, Estimat Glomerular Filtration Rate , Glucose Level 165H, Hemoglobin A1c 5.4, Uric Acid 8.9H, Calcium Level 8.2L, Phosphorus Level 4.0, Magnesium Level 1.8, Total Bilirubin 0.5, Gamma Glutamyl Transpeptidase 57, Aspartate Amino Transf (AST/SGOT) 31, Alanine Aminotransferase (ALT/SGPT) 18, Alkaline Phosphatase 144H, Total Creatine Kinase 33, Troponin I 0.007, Pro-B- Type Natriuretic Peptide 8225H, Total Protein 7.4, Albumin 1.9L, Globulin 5.5, Albumin/Globulin Ratio 0.3L, Triglycerides Level 92, Cholesterol Level 56, LDL Cholesterol 37, HDL Cholesterol 19L, Cholesterol/HDL Ratio 2.9L, Lipase 47L, Thyroid Stimulating Hormone (TSH) 1.693 12/27/17 06:30: C-Reactive Protein, Quantitative 18.2H Height (Feet): 5 Height (Inches): 7.00 Weight (Pounds): 154 General Appearance: no apparent distress, confused EENT: PERRL/EOMI Neck: normal alignment Cardiovascular: normal peripheral pulses Respiratory/Chest: no respiratory distress Abdomen: tender Jerry Delarosa MD Dec 27, 2017 16:03
--- NOTE | 2017-12-27 17:43 | Cardiology Progress Note ---
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 -Hold aspirin due to bleeding - Continue Statin -Rate control with metoprolol 75 mg TID, can not cardiovert due to inability to anticoagulate and bleeding risk -echocardiogram - reviewed, normal LV function, grade III diastolic dysfunction and moderate pulmonary hypertension -Spot dose diuretics to keep negative and reduce filling pressures, lasix 20 mg daily -Rhythm was atrial flutter vs atrial tachycardia, no anticoagulation needed in this rhythm -monitor BP, slowly introduce medications as needed, concern for polypharmacy and hypotension as culprit given 4 anti hypertensive medications -continue norvasc 5 mg daily for now -supportive care -Hysteroscopy for biopsy to determine prognosis - transfer to [facility] -Left atrial myoxma not seen on TTE, would need KARISSA but would not change consultant, currently it is not encroaching on the mitral valve to be clinically significant Subjective Cardiovascular: Reports: no symptoms Respiratory: Reports: no symptoms Gastrointestinal/Abdominal: Reports: no symptoms Genitourinary: Reports: no symptoms Subjective No acute events, vitals stable, vaginal packing removed, pruitt irrigated Objective Last 24 Hour Vital Signs Date Time Temp Pulse Resp B/P (MAP) Pulse Ox O2 Delivery O2 Flow Rate FiO2 12/27/17 16:00 87 12/27/17 16:00 98.3 90 20 129/75 (93) 100 98.3 12/27/17 14:22 78 120/73 12/27/17 12:00 90 12/27/17 12:00 97.5 78 20 120/73 (89) 100 97.5 12/27/17 09:00 Nasal Cannula 2.0 12/27/17 08:45 93 112/65 12/27/17 08:00 97.7 88 20 119/68 (85) 99 97.7 12/27/17 08:00 84 12/27/17 07:12 Nasal Cannula 3.0 32 12/27/17 07:12 93 Nasal Cannula 3.0 32 12/27/17 05:22 88 111/59 12/27/17 04:00 97.8 88 18 111/59 (76) 100 97.8 12/27/17 04:00 104 12/27/17 00:00 97.7 95 20 114/65 (81) 100 97.7 12/26/17 23:53 91 12/26/17 22:25 92 116/69 12/26/17 21:00 Nasal Cannula 2.0 12/26/17 20:00 97.9 92 21 135/85 (102) 95 97.9 12/26/17 19:52 92 Nasal Cannula 3.0 32 12/26/17 19:52 Nasal Cannula 3.0 32 12/26/17 19:46 92 20 Nasal Cannula 3.0 32 12/26/17 19:06 81 General Appearance: no apparent distress EENT: PERRL/EOMI, normal ENT inspection Neck: non-tender, normal alignment, abnormal alignment Rhythm: NSR Cardiovascular: normal peripheral pulses, normal rate Respiratory/Chest: chest wall non-tender, lungs clear Abdomen: normal bowel sounds, non tender Extremities: normal range of motion Neurologic: mud mixer operator II-XII grossly normal Intake and Output 12/26/17 12/27/17 19:00 07:00 Output Total 1250 ml Balance -1250 ml Output Urine Total 1250 ml Laboratory Tests Test 12/27/17 05:30 12/27/17 06:30 White Blood Count 9.3 K/UL (4.8-10.8) Red Blood Count 3.19 M/UL (4.20-5.40) L Hemoglobin 8.1 G/DL (12.0-16.0) L Hematocrit 26.0 % (37.0-47.0) L Mean Corpuscular Volume 81 FL (80-99) Mean Corpuscular Hemoglobin 25.4 PG (27.0-31.0) L Mean Corpuscular Hemoglobin Concent 31.1 G/DL (32.0-36.0) L Red Cell Distribution Width 21.7 % (11.6-14.8) H Platelet Count 266 K/UL (150-450) Mean Platelet Volume 6.0 FL (6.5-10.1) L Neutrophils (%) (Auto) 75.3 % (45.0-75.0) H Lymphocytes (%) (Auto) 15.6 % (20.0-45.0) L Monocytes (%) (Auto) 8.5 % (1.0-10.0) Eosinophils (%) (Auto) 0.2 % (0.0-3.0) Basophils (%) (Auto) 0.5 % (0.0-2.0) Sodium Level 139 MMOL/L (136-145) Potassium Level 3.8 MMOL/L (3.5-5.1) Chloride Level 105 MMOL/L (98-107) Carbon Dioxide Level 24 MMOL/L (21-32) Anion Gap 10 mmol/L (5-15) Blood Urea Nitrogen 34 mg/dL (7-18) H Creatinine 2.5 MG/DL (0.55-1.30) H Estimat Glomerular Filtration Rate mL/min (>60) Glucose Level 165 MG/DL (74-106) H Hemoglobin A1c 5.4 % (4.3-6.0) Uric Acid 8.9 MG/DL (2.6-7.2) H Calcium Level 8.2 MG/DL (8.5-10.1) L Phosphorus Level 4.0 MG/DL (2.5-4.9) Magnesium Level 1.8 MG/DL (1.8-2.4) Total Bilirubin 0.5 MG/DL (0.2-1.0) Gamma Glutamyl Transpeptidase 57 U/L (5-85) Aspartate Amino Transf (AST/SGOT) 31 U/L (15-37) Alanine Aminotransferase (ALT/SGPT) 18 U/L (12-78) Alkaline Phosphatase 144 U/L (46-116) H Total Creatine Kinase 33 U/L (26-308) Troponin I 0.007 ng/mL (0.000-0.056) Pro-B-Type Natriuretic Peptide 8225 pg/mL (0-125) H Total Protein 7.4 G/DL (6.4-8.2) Albumin 1.9 G/DL (3.4-5.0) L Globulin 5.5 g/dL Albumin/Globulin Ratio 0.3 (1.0-2.7) L Triglycerides Level 92 MG/DL (30-150) Cholesterol Level 56 MG/DL (< 200) LDL Cholesterol 37 mg/dL (<100) HDL Cholesterol 19 MG/DL (40-60) L Cholesterol/HDL Ratio 2.9 (3.3-4.4) L Lipase 47 U/L (73-393) L Thyroid Stimulating Hormone (TSH) 1.693 uiU/mL (0.358-3.740) C-Reactive Protein, Quantitative 18.2 mg/dL (0.00-0.90) H Microbiology Date/Time Source Procedure Growth Status 12/24/17 20:20 Straight Cath Urine Culture - Preliminary Escherichia Coli - Esbl Gram Negative Bacillus 2 Resulted Nikolai Brooks M.D. Dec 27, 2017 17:43
[2017-12-27 20:00] VITALS: BP 135/81
[2017-12-27] MEDS: Iron Sucrose 100 MG in NS 55 ML IV SCH (21:11)
[2017-12-28] VITALS: BP 146/84
[2017-12-28] MEDS: Meropenem 500mg in NS 55ml IVPB SCH ×3 (03:56→23:38)
[2017-12-28 04:00] VITALS: BP 152/99
[2017-12-28] MEDS: Metoprolol Tartrate 50mg tab ORAL SCH ×3 (05:33→21:24)
[2017-12-28] MEDS: D5NS 1,000 ML IV SCH (06:11)
[2017-12-28 07:03] LABS: BASOPHILS % (AUTO) 0.7 % (0.0-2.0); HEMATOCRIT 27.5 % (37.0-47.0); HEMOGLOBIN 8.8 G/DL (12.0-16.0); LYMPHOCYTES % (AUTO) 26.1 % (20.0-45.0); MEAN CORPUSCULAR VOLUME 83 FL (80-99); NEUTROPHILS % (AUTO) 62.3 % (45.0-75.0); PLATELET COUNT 287 K/UL (150-450); RED BLOOD COUNT 3.32 M/UL (4.20-5.40); RED CELL DISTRIBUTION WIDTH 22.4 % (11.6-14.8)
[2017-12-28 07:12] LABS: ALANINE AMINOTRANSFERASE 21 U/L (12-78); ALBUMIN 1.9 G/DL (3.4-5.0); ALBUMIN/GLOBULIN RATIO 0.3 (1.0-2.7); ALKALINE PHOSPHATASE 182 U/L (46-116); ANION GAP 9 mmol/L (5-15); ASPARTATE AMINO TRANSFERASE 34 U/L (15-37); BILIRUBIN,TOTAL 0.4 MG/DL (0.2-1.0); BLOOD UREA NITROGEN 26 mg/dL (7-18); CALCIUM 8.3 MG/DL (8.5-10.1); CARBON DIOXIDE 26 MMOL/L (21-32); CHLORIDE 108 MMOL/L (98-107); CREATININE 1.8 MG/DL (0.55-1.30); POTASSIUM 4.3 MMOL/L (3.5-5.1); SODIUM 142 MMOL/L (136-145)
[2017-12-28 08:00] VITALS: BP 129/81
[2017-12-28] MEDS: levETIRAcetam 500mg/5ml Liquid NG SCH ×2 (08:04→21:24)
--- NOTE | 2017-12-28 09:35 | Nephrology Progress Note ---
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 Worsening Anemia Dysphagia, status post gastrostomy tube. Chronic atrial fibrillation with history of rapid ventricular response. Rate controlled on aspirin Hypertension, on multiple hypertensive medications. Encephalopathy Sz disorder h/o CVA / Dementia Plan Avoid Nephrotoxics monitor renal parameters Hold Nephrostomy Stop Lasix- Stop Folic Stop flomax DC Flomax DC Lipitor per Uro / consultants Subjective ROS Limited/Unobtainable: No Constitutional: Reports: malaise Objective Objective Last 24 Hour Vital Signs Date Time Temp Pulse Resp B/P (MAP) Pulse Ox O2 Delivery O2 Flow Rate FiO2 12/28/17 08:50 Nasal Cannula 2.0 12/28/17 08:00 89 12/28/17 08:00 98.3 90 19 129/81 (97) 99 98.3 12/28/17 05:33 94 147/74 12/28/17 04:00 97.0 109 18 152/99 (116) 100 97.0 12/28/17 03:57 92 12/28/17 00:00 97.8 93 18 146/84 (104) 100 97.8 12/27/17 23:33 99 12/27/17 21:12 105 135/81 12/27/17 21:00 Nasal Cannula 2.0 12/27/17 20:00 98.8 107 18 135/81 (99) 100 98.8 12/27/17 19:30 93 Nasal Cannula 3.0 32 12/27/17 19:30 Nasal Cannula 3.0 32 12/27/17 19:19 93 12/27/17 16:00 87 12/27/17 16:00 98.3 90 20 129/75 (93) 100 98.3 12/27/17 14:22 78 120/73 12/27/17 12:00 90 12/27/17 12:00 97.5 78 20 120/73 (89) 100 97.5 Intake and Output 12/27/17 12/28/17 19:00 07:00 Output Total 400 ml 600 ml Balance -400 ml -600 ml Output Urine Total 400 ml 600 ml Current Medications Medications (Trade) Dose Ordered Sig/Renea Route PRN Reason Start Time Stop Time Status Last Admin Dose Admin Barium Sulfate (Readi-Cat 2) 450 ml NOW PRN ORAL Radiology Procedure 12/21/17 12:23 Dextrose/Sodium Chloride 1,000 ml @ 50 mls/hr Q20H IV 12/26/17 14:15 01/25/18 14:14 12/28/17 06:11 Iopamidol (Isovue-300 100ml) 100 ml NOW PRN INJ Radiology Procedure 12/21/17 12:30 Iron Sucrose 100 mg/Sodium Chloride 60 ml @ 125 mls/hr QHS IV 12/26/17 21:00 12/30/17 21:29 12/27/17 21:11 Levetiracetam (Keppra) 750 mg Q12HR NG 12/23/17 09:11 01/22/18 09:10 12/28/17 08:04 Meropenem 500 mg/ Sodium Chloride 55 ml @ 110 mls/hr Q12H IVPB 12/27/17 16:00 01/01/18 15:59 12/28/17 03:56 Metoclopramide HCl (Reglan) 5 mg Q6H PRN NG for gastric residuals >50cc 12/23/17 15:15 01/22/18 15:14 Metoprolol Tartrate (Lopressor) 75 mg EVERY 8 HOURS ORAL 12/23/17 22:00 01/18/18 08:59 12/28/17 05:33 Mirtazapine (Remeron) 15 mg BEDTIME ORAL 12/19/17 21:00 01/18/18 20:59 12/27/17 21:12 Morphine Sulfate (Morphine Sulfate) 2 mg Q3HR PRN IVP For Pain 12/25/17 22:30 01/01/18 22:29 12/27/17 18:16 Quetiapine Fumarate (SEROquel) 25 mg Q6H PRN ORAL agitation 12/22/17 15:15 01/21/18 15:14 12/26/17 08:44 Laboratory Tests 12/28/17 06:00: White Blood Count 13.0H, Red Blood Count 3.32L, Hemoglobin 8.8L, Hematocrit 27.5L, Mean Corpuscular Volume 83, Mean Corpuscular Hemoglobin 26.4L, Mean Corpuscular Hemoglobin Concent 31.8L, Red Cell Distribution Width 22.4H, Platelet Count 287, Mean Platelet Volume 6.3L, Neutrophils (%) (Auto) 62.3, Lymphocytes (%) (Auto) 26.1, Monocytes (%) (Auto) 11.0H, Eosinophils (%) (Auto) 0.0, Basophils (%) (Auto) 0.7, Sodium Level 142, Potassium Level 4.3, Chloride Level 108H, Carbon Dioxide Level 26, Anion Gap 9, Blood Urea Nitrogen 26H, Creatinine 1.8H, Estimat Glomerular Filtration Rate , Glucose Level 116H, Calcium Level 8.3L, Total Bilirubin 0.4, Aspartate Amino Transf (AST/SGOT) 34, Alanine Aminotransferase (ALT/SGPT) 21, Alkaline Phosphatase 182H, Pro-B-Type Natriuretic Peptide 56685E, Total Protein 8.0, Albumin 1.9L, Globulin 6.1, Albumin/Globulin Ratio 0.3L Height (Feet): 5 Height (Inches): 7.00 Weight (Pounds): 154 General Appearance: no apparent distress Respiratory/Chest: decreased breath sounds Abdomen: soft Objective no other change Aris Ragsdale MD Dec 28, 2017 09:35
--- NOTE | 2017-12-28 10:00 | Urology Progress Note ---
Assessment/Plan Assessment/Plan 1. Perineal mass, which may be gynecologic or urologic in origin, but is concerning for malignancy. 2. Urinary incontinence. 3. Probable neurogenic bladder. 4. Renal cyst. 5. SUNNY. 6. Hydronephrosis. &. POD # 3, Cysto/fulguration findings most consistent with malignancy poss primary bladder ca invading vagina or vaginal/cervical ca will need RETAIL ASSISTANT MANAGER and med/onc f/u monitor renal fxn, h/h no blood transfusion per pt's son anticoagulation held abx as ordered keep pruitt indwelling Hand irrigate pruitt PRN I personally hand irrigated pruitt f/u on path d/w primary service extensively d/w Dr. Ragsdale renal fxn improving, will hold off on nephrostomy for now, concern for bleeding will likey need transfer to tertiary care center or facility with blood/ transfusion free medicine Subjective Allergies: Coded Allergies: No Known Allergies (Unverified , 04/30/16) Subjective all noted, pt looks comfortable off CBI, pruitt hand irrigated PRN no sig bleeding reported Objective Last 24 Hour Vital Signs Date Time Temp Pulse Resp B/P (MAP) Pulse Ox O2 Delivery O2 Flow Rate FiO2 12/28/17 08:50 Nasal Cannula 2.0 12/28/17 08:00 89 12/28/17 08:00 98.3 90 19 129/81 (97) 99 98.3 12/28/17 05:33 94 147/74 12/28/17 04:00 97.0 109 18 152/99 (116) 100 97.0 12/28/17 03:57 92 12/28/17 00:00 97.8 93 18 146/84 (104) 100 97.8 12/27/17 23:33 99 12/27/17 21:12 105 135/81 12/27/17 21:00 Nasal Cannula 2.0 12/27/17 20:00 98.8 107 18 135/81 (99) 100 98.8 12/27/17 19:30 93 Nasal Cannula 3.0 32 12/27/17 19:30 Nasal Cannula 3.0 32 12/27/17 19:19 93 12/27/17 16:00 87 12/27/17 16:00 98.3 90 20 129/75 (93) 100 98.3 12/27/17 14:22 78 120/73 12/27/17 12:00 90 12/27/17 12:00 97.5 78 20 120/73 (89) 100 97.5 Intake and Output 12/27/17 12/28/17 19:00 07:00 Output Total 400 ml 600 ml Balance -400 ml -600 ml Output Urine Total 400 ml 600 ml Microbiology Date/Time Source Procedure Growth Status 12/24/17 15:00 Blood Blood Culture - Preliminary NO GROWTH AFTER 72 HOURS Resulted 12/19/17 17:50 Vaginal Gram Stain - Final Complete 12/19/17 17:50 Vaginal Neisseria gonorrhoeae Culture - Final No Neisseria gonorrhoeae isolated Complete 12/18/17 23:04 Nasal Nares MRSA Culture - Final NO METHICILLIN RESISTANT STAPH AUREUS... Complete 12/24/17 20:20 Straight Cath Urine Culture - Final Escherichia Coli - Esbl Klebsiella Pneumoniae Esbl Complete 12/18/17 23:04 Rectum VRE Culture - Final Enterococcus Faecalis - Vre Complete 12/18/17 23:04 Rectum - Final NO CARBAPENEM-RESISTANT ENTEROBACTERI... Complete Current Medications Medications (Trade) Dose Ordered Sig/Renea Route PRN Reason Start Time Stop Time Status Last Admin Dose Admin Barium Sulfate (Readi-Cat 2) 450 ml NOW PRN ORAL Radiology Procedure 12/21/17 12:23 Dextrose/Sodium Chloride 1,000 ml @ 50 mls/hr Q20H IV 12/26/17 14:15 01/25/18 14:14 12/28/17 06:11 Iopamidol (Isovue-300 100ml) 100 ml NOW PRN INJ Radiology Procedure 12/21/17 12:30 Iron Sucrose 100 mg/Sodium Chloride 60 ml @ 125 mls/hr QHS IV 12/26/17 21:00 12/30/17 21:29 12/27/17 21:11 Levetiracetam (Keppra) 750 mg Q12HR NG 12/23/17 09:11 01/22/18 09:10 12/28/17 08:04 Meropenem 500 mg/ Sodium Chloride 55 ml @ 110 mls/hr Q12H IVPB 12/27/17 16:00 01/01/18 15:59 12/28/17 03:56 Metoclopramide HCl (Reglan) 5 mg Q6H PRN NG for gastric residuals >50cc 12/23/17 15:15 01/22/18 15:14 Metoprolol Tartrate (Lopressor) 75 mg EVERY 8 HOURS ORAL 12/23/17 22:00 01/18/18 08:59 12/28/17 05:33 Mirtazapine (Remeron) 15 mg BEDTIME ORAL 12/19/17 21:00 01/18/18 20:59 12/27/17 21:12 Morphine Sulfate (Morphine Sulfate) 2 mg Q3HR PRN IVP For Pain 12/25/17 22:30 01/01/18 22:29 12/27/17 18:16 Quetiapine Fumarate (SEROquel) 25 mg Q6H PRN ORAL agitation 12/22/17 15:15 01/21/18 15:14 12/26/17 08:44 Laboratory Tests 12/28/17 06:00: White Blood Count 13.0H, Red Blood Count 3.32L, Hemoglobin 8.8L, Hematocrit 27.5L, Mean Corpuscular Volume 83, Mean Corpuscular Hemoglobin 26.4L, Mean Corpuscular Hemoglobin Concent 31.8L, Red Cell Distribution Width 22.4H, Platelet Count 287, Mean Platelet Volume 6.3L, Neutrophils (%) (Auto) 62.3, Lymphocytes (%) (Auto) 26.1, Monocytes (%) (Auto) 11.0H, Eosinophils (%) (Auto) 0.0, Basophils (%) (Auto) 0.7, Sodium Level 142, Potassium Level 4.3, Chloride Level 108H, Carbon Dioxide Level 26, Anion Gap 9, Blood Urea Nitrogen 26H, Creatinine 1.8H, Estimat Glomerular Filtration Rate , Glucose Level 116H, Calcium Level 8.3L, Total Bilirubin 0.4, Aspartate Amino Transf (AST/SGOT) 34, Alanine Aminotransferase (ALT/SGPT) 21, Alkaline Phosphatase 182H, Pro-B-Type Natriuretic Peptide 64736E, Total Protein 8.0, Albumin 1.9L, Globulin 6.1, Albumin/Globulin Ratio 0.3L Height (Feet): 5 Height (Inches): 7.00 Weight (Pounds): 154 Objective exam stable, no obvious visible bleeding in vaginal area pruitt indwelling, urine relatively yellow/michelle, some debris noted renal u/s (12/25) noted BAMSHAD,JOSH Dec 28, 2017 10:00
--- NOTE | 2017-12-28 10:37 | GI Progress Note ---
Assessment/Plan Problems: (1) S/P percutaneous endoscopic gastrostomy (PEG) tube placement ICD Codes: Z93.1 - Gastrostomy status SNOMED: 019833559 (2) Anemia ICD Codes: D64.9 - Anemia, unspecified SNOMED: 154888555 (3) Dehydration ICD Codes: E86.0 - Dehydration SNOMED: 36559576 Status: stable, unchanged Status Narrative Discussed with Dr. Man. Assessment/Plan supportive care GTFs per RD, pt tolerating feeding with no residual reglan to prn consider GTF change to Osmolite if residuals still high GT site care prn ppi fu labs The patient was seen and examined at bedside and all new and available data was reviewed in the patients chart. I agree with the above findings, impression and plan. (Patient seen earlier today. Signature stamp does not reflect patient encounter time.). - Ko Man MD Subjective Subjective limited Objective Last 24 Hour Vital Signs Date Time Temp Pulse Resp B/P (MAP) Pulse Ox O2 Delivery O2 Flow Rate FiO2 12/28/17 08:50 Nasal Cannula 2.0 12/28/17 08:00 89 12/28/17 08:00 98.3 90 19 129/81 (97) 99 98.3 12/28/17 05:33 94 147/74 12/28/17 04:00 97.0 109 18 152/99 (116) 100 97.0 12/28/17 03:57 92 12/28/17 00:00 97.8 93 18 146/84 (104) 100 97.8 12/27/17 23:33 99 12/27/17 21:12 105 135/81 12/27/17 21:00 Nasal Cannula 2.0 12/27/17 20:00 98.8 107 18 135/81 (99) 100 98.8 12/27/17 19:30 93 Nasal Cannula 3.0 32 12/27/17 19:30 Nasal Cannula 3.0 32 12/27/17 19:19 93 12/27/17 16:00 87 12/27/17 16:00 98.3 90 20 129/75 (93) 100 98.3 12/27/17 14:22 78 120/73 12/27/17 12:00 90 12/27/17 12:00 97.5 78 20 120/73 (89) 100 97.5 Intake and Output 12/27/17 12/28/17 19:00 07:00 Output Total 400 ml 600 ml Balance -400 ml -600 ml Output Urine Total 400 ml 600 ml Laboratory Tests Test 12/28/17 06:00 White Blood Count 13.0 K/UL (4.8-10.8) H Red Blood Count 3.32 M/UL (4.20-5.40) L Hemoglobin 8.8 G/DL (12.0-16.0) L Hematocrit 27.5 % (37.0-47.0) L Mean Corpuscular Volume 83 FL (80-99) Mean Corpuscular Hemoglobin 26.4 PG (27.0-31.0) L Mean Corpuscular Hemoglobin Concent 31.8 G/DL (32.0-36.0) L Red Cell Distribution Width 22.4 % (11.6-14.8) H Platelet Count 287 K/UL (150-450) Mean Platelet Volume 6.3 FL (6.5-10.1) L Neutrophils (%) (Auto) 62.3 % (45.0-75.0) Lymphocytes (%) (Auto) 26.1 % (20.0-45.0) Monocytes (%) (Auto) 11.0 % (1.0-10.0) H Eosinophils (%) (Auto) 0.0 % (0.0-3.0) Basophils (%) (Auto) 0.7 % (0.0-2.0) Sodium Level 142 MMOL/L (136-145) Potassium Level 4.3 MMOL/L (3.5-5.1) Chloride Level 108 MMOL/L (98-107) H Carbon Dioxide Level 26 MMOL/L (21-32) Anion Gap 9 mmol/L (5-15) Blood Urea Nitrogen 26 mg/dL (7-18) H Creatinine 1.8 MG/DL (0.55-1.30) H Estimat Glomerular Filtration Rate mL/min (>60) Glucose Level 116 MG/DL (74-106) H Calcium Level 8.3 MG/DL (8.5-10.1) L Total Bilirubin 0.4 MG/DL (0.2-1.0) Aspartate Amino Transf (AST/SGOT) 34 U/L (15-37) Alanine Aminotransferase (ALT/SGPT) 21 U/L (12-78) Alkaline Phosphatase 182 U/L (46-116) H Pro-B-Type Natriuretic Peptide 36395 pg/mL (0-125) H Total Protein 8.0 G/DL (6.4-8.2) Albumin 1.9 G/DL (3.4-5.0) L Globulin 6.1 g/dL Albumin/Globulin Ratio 0.3 (1.0-2.7) L Height (Feet): 5 Height (Inches): 7.00 Weight (Pounds): 154 General Appearance: no apparent distress Cardiovascular: normal rate Respiratory/Chest: normal breath sounds, no respiratory distress Abdominal Exam: normal bowel sounds, non tender, soft, GT site - c/d/i Extremities: non-tender Garth Don NP Dec 28, 2017 10:37
--- NOTE | 2017-12-28 10:56 | General Progress Note ---
Assessment/Plan Assessment/Plan MDD Anxiety d/o Vascular Dementia the pt lacks capacity recommend palliative care rec dnr/dni seroquel 25mg q 6hr/prn/anxiety Subjective Date patient seen: Dec 28, 2017 Neurologic/Psychiatric: Reports: anxiety Allergies: Coded Allergies: No Known Allergies (Unverified , 04/30/16) Subjective the pt is agitated and confused the pt is unable to understand nor process the information given to her regarding her medical condition the pt is calm and asleep Objective Last 24 Hour Vital Signs Date Time Temp Pulse Resp B/P (MAP) Pulse Ox O2 Delivery O2 Flow Rate FiO2 12/28/17 08:50 Nasal Cannula 2.0 12/28/17 08:00 89 12/28/17 08:00 98.3 90 19 129/81 (97) 99 98.3 12/28/17 05:33 94 147/74 12/28/17 04:00 97.0 109 18 152/99 (116) 100 97.0 12/28/17 03:57 92 12/28/17 00:00 97.8 93 18 146/84 (104) 100 97.8 12/27/17 23:33 99 12/27/17 21:12 105 135/81 12/27/17 21:00 Nasal Cannula 2.0 12/27/17 20:00 98.8 107 18 135/81 (99) 100 98.8 12/27/17 19:30 93 Nasal Cannula 3.0 32 12/27/17 19:30 Nasal Cannula 3.0 32 12/27/17 19:19 93 12/27/17 16:00 87 12/27/17 16:00 98.3 90 20 129/75 (93) 100 98.3 12/27/17 14:22 78 120/73 12/27/17 12:00 90 12/27/17 12:00 97.5 78 20 120/73 (89) 100 97.5 Intake and Output 12/27/17 12/28/17 19:00 07:00 Output Total 400 ml 600 ml Balance -400 ml -600 ml Output Urine Total 400 ml 600 ml Laboratory Tests 12/28/17 06:00: White Blood Count 13.0H, Red Blood Count 3.32L, Hemoglobin 8.8L, Hematocrit 27.5L, Mean Corpuscular Volume 83, Mean Corpuscular Hemoglobin 26.4L, Mean Corpuscular Hemoglobin Concent 31.8L, Red Cell Distribution Width 22.4H, Platelet Count 287, Mean Platelet Volume 6.3L, Neutrophils (%) (Auto) 62.3, Lymphocytes (%) (Auto) 26.1, Monocytes (%) (Auto) 11.0H, Eosinophils (%) (Auto) 0.0, Basophils (%) (Auto) 0.7, Sodium Level 142, Potassium Level 4.3, Chloride Level 108H, Carbon Dioxide Level 26, Anion Gap 9, Blood Urea Nitrogen 26H, Creatinine 1.8H, Estimat Glomerular Filtration Rate , Glucose Level 116H, Calcium Level 8.3L, Total Bilirubin 0.4, Aspartate Amino Transf (AST/SGOT) 34, Alanine Aminotransferase (ALT/SGPT) 21, Alkaline Phosphatase 182H, Pro-B-Type Natriuretic Peptide 83466G, Total Protein 8.0, Albumin 1.9L, Globulin 6.1, Albumin/Globulin Ratio 0.3L Height (Feet): 5 Height (Inches): 7.00 Weight (Pounds): 154 General Appearance: no apparent distress, confused Kunal Tse MD Dec 28, 2017 10:56
[2017-12-28 11:57] VITALS: BP 127/78
--- NOTE | 2017-12-28 13:29 | General Progress Note ---
Assessment/Plan Status: unchanged Assessment/Plan #. Heterogeneous mass lesion involving the bladder, with portions of the posterior bladder inseparable from the lower uterine segment/cervix and vagina. Findings are highly concerning for malignancy, either bladder or gynecologic ( vaginal/cervical/uterine) in etiology --> CT C/A/P with iv contrast: Heterogeneous mass lesion within the bladder, contiguous with heterogeneous mass in the vagina highly concerning for malignancy. Multiple bilateral pulmonary nodules most concerning for metastatic disease. Small pelvic lymph nodes. 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 --> tumor markers pending, cea is elevated approx 42 --> eval with uro as needed, reviewed his recs, appreciated --> will likely need biopsy with with fishing worker-onc or with cystocsopy with uro --> To be managed as outpatient once stabilized vs transfer to higher level of care #. Anemia due to iron deficiency --> eval for gi bleed as need v vaginal bleed --> iron iv has been completed x 5 days. --> 12/25: Hgb 7.3, IV iron started x5 days. --> appreciate recs from Dr. Chapman (Primary Substance Abuse Counselor) --> Jehovahs witness, refusing transfusion #. Dysphagia, status post gastrostomy tube. #. Chronic atrial fibrillation with history of rapid ventricular response. Rate controlled on aspirin --> anticoag hold given bleeding and JW #. Hypertension, on multiple hypertensive medications. The time the note was entered does not necessarily correspond to the time the patient was seen. Subjective Date patient seen: Dec 28, 2017 ROS Limited/Unobtainable: Yes Hematologic/Lymphatic: Reports: anemia Allergies: Coded Allergies: No Known Allergies (Unverified , 04/30/16) All Systems: reviewed and negative except above Subjective Pt awake and confused. No acute events. DC planning. Objective Last 24 Hour Vital Signs Date Time Temp Pulse Resp B/P (MAP) Pulse Ox O2 Delivery O2 Flow Rate FiO2 12/28/17 12:00 80 12/28/17 11:57 98.4 86 19 127/78 (94) 98 98.4 12/28/17 08:55 Nasal Cannula 3.0 32 12/28/17 08:55 79 Nasal Cannula 3.0 32 7/30/18 08:50 Nasal Cannula 2.0 12/28/17 08:00 89 12/28/17 08:00 98.3 90 19 129/81 (97) 99 98.3 12/28/17 05:33 94 147/74 12/28/17 04:00 97.0 109 18 152/99 (116) 100 97.0 12/28/17 03:57 92 12/28/17 00:00 97.8 93 18 146/84 (104) 100 97.8 12/27/17 23:33 99 12/27/17 21:12 105 135/81 12/27/17 21:00 Nasal Cannula 2.0 12/27/17 20:00 98.8 107 18 135/81 (99) 100 98.8 12/27/17 19:30 93 Nasal Cannula 3.0 32 12/27/17 19:30 Nasal Cannula 3.0 32 12/27/17 19:19 93 12/27/17 16:00 87 12/27/17 16:00 98.3 90 20 129/75 (93) 100 98.3 12/27/17 14:22 78 120/73 Intake and Output 12/27/17 12/28/17 19:00 07:00 Output Total 400 ml 600 ml Balance -400 ml -600 ml Output Urine Total 400 ml 600 ml Laboratory Tests 12/28/17 06:00: White Blood Count 13.0H, Red Blood Count 3.32L, Hemoglobin 8.8L, Hematocrit 27.5L, Mean Corpuscular Volume 83, Mean Corpuscular Hemoglobin 26.4L, Mean Corpuscular Hemoglobin Concent 31.8L, Red Cell Distribution Width 22.4H, Platelet Count 287, Mean Platelet Volume 6.3L, Neutrophils (%) (Auto) 62.3, Lymphocytes (%) (Auto) 26.1, Monocytes (%) (Auto) 11.0H, Eosinophils (%) (Auto) 0.0, Basophils (%) (Auto) 0.7, Sodium Level 142, Potassium Level 4.3, Chloride Level 108H, Carbon Dioxide Level 26, Anion Gap 9, Blood Urea Nitrogen 26H, Creatinine 1.8H, Estimat Glomerular Filtration Rate , Glucose Level 116H, Calcium Level 8.3L, Total Bilirubin 0.4, Aspartate Amino Transf (AST/SGOT) 34, Alanine Aminotransferase (ALT/SGPT) 21, Alkaline Phosphatase 182H, Pro-B-Type Natriuretic Peptide 72946N, Total Protein 8.0, Albumin 1.9L, Globulin 6.1, Albumin/Globulin Ratio 0.3L Height (Feet): 5 Height (Inches): 7.00 Weight (Pounds): 154 General Appearance: no apparent distress, confused EENT: PERRL/EOMI Neck: normal alignment Cardiovascular: normal peripheral pulses Respiratory/Chest: no respiratory distress Abdomen: tender Jerry Delarosa MD Dec 28, 2017 13:29
--- NOTE | 2017-12-28 13:38 | General Progress Note ---
Assessment/Plan Problem List: (1) Dysphagia ICD Codes: R13.10 - Dysphagia, unspecified SNOMED: 49564633, 411898223 (2) Seizure disorder ICD Codes: G40.909 - Epilepsy, unspecified, not intractable, without status epilepticus SNOMED: 170087556 (3) Vaginal bleeding ICD Codes: N93.9 - Abnormal uterine and vaginal bleeding, unspecified SNOMED: 679284374, 111013265 (4) HLD (hyperlipidemia) ICD Codes: E78.5 - Hyperlipidemia, unspecified SNOMED: 71742399 (5) H/O: CVA (cerebrovascular accident) ICD Codes: Z86.73 - Personal history of transient ischemic attack (TIA), and cerebral infarction without residual deficits SNOMED: 875299085 (6) lives at snf (7) Atrial fibrillation with RVR ICD Codes: I48.91 - Unspecified atrial fibrillation SNOMED: 595338575211577 (8) Laceration of forehead ICD Codes: S01.81XA - Laceration without foreign body of other part of head, initial encounter SNOMED: 464283117, 994393917 (9) Head contusion ICD Codes: S00.93XA - Contusion of unspecified part of head, initial encounter SNOMED: 234830562, 753162573 (10) Dementia ICD Codes: F03.90 - Unspecified dementia without behavioral disturbance SNOMED: 11809602 (11) HTN (hypertension) ICD Codes: I10 - Essential (primary) hypertension SNOMED: 94690039 (12) S/P percutaneous endoscopic gastrostomy (PEG) tube placement ICD Codes: Z93.1 - Gastrostomy status SNOMED: 986196886 (13) Fall ICD Codes: W19.XXXA - Unspecified fall, initial encounter SNOMED: 4700431, 635613091 (14) Atrial flutter ICD Codes: I48.92 - Unspecified atrial flutter SNOMED: 9537009 (15) Pulmonary nodule ICD Codes: R91.1 - Solitary pulmonary nodule SNOMED: 390802969 (16) Vaginal mass ICD Codes: N89.9 - Noninflammatory disorder of vagina, unspecified SNOMED: 240610401 (17) SUNNY (acute kidney injury) ICD Codes: N17.9 - Acute kidney failure, unspecified SNOMED: 89539249 (18) Urinary tract infection due to ESBL Klebsiella ICD Codes: N39.0 - Urinary tract infection, site not specified; B96.89 - Other specified bacterial agents as the cause of diseases classified elsewhere SNOMED: 188724858 (19) Hydronephrosis ICD Codes: N13.30 - Unspecified hydronephrosis SNOMED: 01433413 Status: stable, progressing Assessment/Plan - appreciate cards recs and mgt - appreciate OBGYN rec's - appreciate urology rec's - appreciate oncology recs - appreciate GI rec's - appreciate nephrology rec's - appreciate ID rec's - s/p cystoscopy and pruitt placement, and biopsy on 12/25 - f/u on path - Cr downtrending now - renal U/S showing bilateral hydronephrosis. no nephrostomy given Cr downtrending - continue IV meropenam for ESBL UTI. WBC downtrending/normalized - Hgb stable - tolerating tube feeds - f/u stat CT chest/abdomen/pelvis w/o contrast -- multiple pulmonary nodules concerning for metastasis. also with vaginal mass - f/u tumor markers - serial tn neg - asa, statin - bb - monitor H/H - supportive care [facility] denied transfer for patient recommending outpatient workup for vaginal mass. d/w son, Isiah. Patient does not have the capacity to make her decisions given advanced dementia. Patient is a [employer] and per son, refusing blood transfusions. DC planning in AM DVT ppx: SCD's CODE STATUS: Full Anticipate pt will require 3-4 days of inpatient mgt, anticipate discharge to [facility], [facility] 40 min spent on this case and 23 min dedicated to counseling and or care coordination. D/w son, RN, and all consultants Time of note may not reflect time of clinical encounter. Subjective Date patient seen: Dec 28, 2017 Allergies: Coded Allergies: No Known Allergies (Unverified , 04/30/16) Subjective - transfer per [facility] denied - Cr downtrending. nephrostomy placement discontinued - Hgb stable, 8.3 - scant vaginal bleeding - tolerating tube feeds - continues to be in a.fibb Objective Last 24 Hour Vital Signs Date Time Temp Pulse Resp B/P (MAP) Pulse Ox O2 Delivery O2 Flow Rate FiO2 12/28/17 12:00 80 7/30/18 11:57 98.4 86 19 127/78 (94) 98 98.4 12/28/17 08:55 Nasal Cannula 3.0 32 12/28/17 08:55 79 Nasal Cannula 3.0 32 12/28/17 08:50 Nasal Cannula 2.0 12/28/17 08:00 89 12/28/17 08:00 98.3 90 19 129/81 (97) 99 98.3 12/28/17 05:33 94 147/74 12/28/17 04:00 97.0 109 18 152/99 (116) 100 97.0 12/28/17 03:57 92 12/28/17 00:00 97.8 93 18 146/84 (104) 100 97.8 12/27/17 23:33 99 12/27/17 21:12 105 135/81 12/27/17 21:00 Nasal Cannula 2.0 12/27/17 20:00 98.8 107 18 135/81 (99) 100 98.8 12/27/17 19:30 93 Nasal Cannula 3.0 32 12/27/17 19:30 Nasal Cannula 3.0 32 12/27/17 19:19 93 12/27/17 16:00 87 12/27/17 16:00 98.3 90 20 129/75 (93) 100 98.3 12/27/17 14:22 78 120/73 Intake and Output 12/27/17 12/28/17 19:00 07:00 Output Total 400 ml 600 ml Balance -400 ml -600 ml Output Urine Total 400 ml 600 ml Laboratory Tests 12/28/17 06:00: White Blood Count 13.0H, Red Blood Count 3.32L, Hemoglobin 8.8L, Hematocrit 27.5L, Mean Corpuscular Volume 83, Mean Corpuscular Hemoglobin 26.4L, Mean Corpuscular Hemoglobin Concent 31.8L, Red Cell Distribution Width 22.4H, Platelet Count 287, Mean Platelet Volume 6.3L, Neutrophils (%) (Auto) 62.3, Lymphocytes (%) (Auto) 26.1, Monocytes (%) (Auto) 11.0H, Eosinophils (%) (Auto) 0.0, Basophils (%) (Auto) 0.7, Sodium Level 142, Potassium Level 4.3, Chloride Level 108H, Carbon Dioxide Level 26, Anion Gap 9, Blood Urea Nitrogen 26H, Creatinine 1.8H, Estimat Glomerular Filtration Rate , Glucose Level 116H, Calcium Level 8.3L, Total Bilirubin 0.4, Aspartate Amino Transf (AST/SGOT) 34, Alanine Aminotransferase (ALT/SGPT) 21, Alkaline Phosphatase 182H, Pro-B-Type Natriuretic Peptide 03193O, Total Protein 8.0, Albumin 1.9L, Globulin 6.1, Albumin/Globulin Ratio 0.3L Height (Feet): 5 Height (Inches): 7.00 Weight (Pounds): 154 General Appearance: alert EENT: PERRL/EOMI, normal ENT inspection Neck: non-tender, normal alignment, supple Cardiovascular: normal peripheral pulses, regularly irregular Respiratory/Chest: chest wall non-tender, lungs clear, normal breath sounds Abdomen: normal bowel sounds, non tender, soft, other - PEG Genitourinary/Rectal: other - vaginal mass with scant vaginal bleeding Neurologic: alert Skin: normal pigmentation, warm/dry Hattie Sow NP Dec 28, 2017 13:38
[2017-12-28] MEDS ORDERED: D5NS 1000ml IV ONE (14:44)
[2017-12-28] MEDS ORDERED: Tubing IV Secondary IV ONE (14:44)
[2017-12-28 15:57] VITALS: BP 122/76
--- NOTE | 2017-12-28 19:15 | Infectious Diseases Prog Note ---
Assessment/Plan Assessment/Plan Full consult dictated: A) 1) esbl e.coli uti/esbl klebsiella uti, ? pna 2) pmh noted 3) allergies - nkda P) 1) meropenem - day # 2 2) check sc, labs and chest x-ray 3) will f/u Subjective Constitutional: Denies: fever HEENT: Reports: congestion Respiratory: Reports: shortness of breath Cardiovascular: Denies: chest pain Gastrointestinal/Abdominal: Denies: nausea, vomiting Allergies: Coded Allergies: No Known Allergies (Unverified , 04/30/16) Objective Vital Signs Last 24 Hour Vital Signs Date Time Temp Pulse Resp B/P (MAP) Pulse Ox O2 Delivery O2 Flow Rate FiO2 12/28/17 16:00 80 12/28/17 15:57 98.1 81 20 122/76 (91) 95 98.1 12/28/17 13:35 80 127/78 12/28/17 12:00 80 12/28/17 11:57 98.4 86 19 127/78 (94) 98 98.4 12/28/17 08:55 Nasal Cannula 3.0 32 12/28/17 08:55 79 Nasal Cannula 3.0 32 12/28/17 08:50 Nasal Cannula 2.0 12/28/17 08:00 89 12/28/17 08:00 98.3 90 19 129/81 (97) 99 98.3 12/28/17 05:33 94 147/74 12/28/17 04:00 97.0 109 18 152/99 (116) 100 97.0 12/28/17 03:57 92 12/28/17 00:00 97.8 93 18 146/84 (104) 100 97.8 12/27/17 23:33 99 12/27/17 21:12 105 135/81 12/27/17 21:00 Nasal Cannula 2.0 12/27/17 20:00 98.8 107 18 135/81 (99) 100 98.8 12/27/17 19:30 93 Nasal Cannula 3.0 32 12/27/17 19:30 Nasal Cannula 3.0 32 12/27/17 19:19 93 Height (Feet): 5 Height (Inches): 7.00 Weight (Pounds): 154 General Appearance: no acute distress HEENT: normocephalic, atraumatic, anicteric Respiratory/Chest: crackles/rales, rhonchi - bilaterally Cardiovascular: normal rate, regular rhythm Abdomen: soft, non tender, no organomegaly, non distended Laboratory Tests Test 12/28/17 06:00 White Blood Count 13.0 K/UL (4.8-10.8) H Red Blood Count 3.32 M/UL (4.20-5.40) L Hemoglobin 8.8 G/DL (12.0-16.0) L Hematocrit 27.5 % (37.0-47.0) L Mean Corpuscular Volume 83 FL (80-99) Mean Corpuscular Hemoglobin 26.4 PG (27.0-31.0) L Mean Corpuscular Hemoglobin Concent 31.8 G/DL (32.0-36.0) L Red Cell Distribution Width 22.4 % (11.6-14.8) H Platelet Count 287 K/UL (150-450) Mean Platelet Volume 6.3 FL (6.5-10.1) L Neutrophils (%) (Auto) 62.3 % (45.0-75.0) Lymphocytes (%) (Auto) 26.1 % (20.0-45.0) Monocytes (%) (Auto) 11.0 % (1.0-10.0) H Eosinophils (%) (Auto) 0.0 % (0.0-3.0) Basophils (%) (Auto) 0.7 % (0.0-2.0) Sodium Level 142 MMOL/L (136-145) Potassium Level 4.3 MMOL/L (3.5-5.1) Chloride Level 108 MMOL/L (98-107) H Carbon Dioxide Level 26 MMOL/L (21-32) Anion Gap 9 mmol/L (5-15) Blood Urea Nitrogen 26 mg/dL (7-18) H Creatinine 1.8 MG/DL (0.55-1.30) H Estimat Glomerular Filtration Rate mL/min (>60) Glucose Level 116 MG/DL (74-106) H Calcium Level 8.3 MG/DL (8.5-10.1) L Total Bilirubin 0.4 MG/DL (0.2-1.0) Aspartate Amino Transf (AST/SGOT) 34 U/L (15-37) Alanine Aminotransferase (ALT/SGPT) 21 U/L (12-78) Alkaline Phosphatase 182 U/L (46-116) H Pro-B-Type Natriuretic Peptide 89181 pg/mL (0-125) H Total Protein 8.0 G/DL (6.4-8.2) Albumin 1.9 G/DL (3.4-5.0) L Globulin 6.1 g/dL Albumin/Globulin Ratio 0.3 (1.0-2.7) L Current Medications Medications (Trade) Dose Ordered Sig/Renea Route PRN Reason Start Time Stop Time Status Last Admin Dose Admin Dextrose/Sodium Chloride 1,000 ml @ 50 mls/hr Q20H IV 12/26/17 14:15 01/25/18 14:14 12/28/17 06:11 Iron Sucrose 100 mg/Sodium Chloride 60 ml @ 125 mls/hr QHS IV 12/26/17 21:00 12/30/17 21:29 12/27/17 21:11 Levetiracetam (Keppra) 750 mg Q12HR NG 12/23/17 09:11 01/22/18 09:10 12/28/17 08:04 Meropenem 500 mg/ Sodium Chloride 55 ml @ 110 mls/hr Q12H IVPB 12/27/17 16:00 01/01/18 15:59 12/28/17 15:24 Metoclopramide HCl (Reglan) 5 mg Q6H PRN NG for gastric residuals >50cc 12/23/17 15:15 01/22/18 15:14 Metoprolol Tartrate (Lopressor) 75 mg EVERY 8 HOURS ORAL 12/23/17 22:00 01/18/18 08:59 12/28/17 13:35 Mirtazapine (Remeron) 15 mg BEDTIME ORAL 12/19/17 21:00 01/18/18 20:59 12/27/17 21:12 Morphine Sulfate (Morphine Sulfate) 2 mg Q3HR PRN IVP For Pain 12/25/17 22:30 01/01/18 22:29 12/27/17 18:16 Quetiapine Fumarate (SEROquel) 25 mg Q6H PRN ORAL agitation 12/22/17 15:15 01/21/18 15:14 12/26/17 08:44 Bella Valdes MD Dec 28, 2017 19:15
[2017-12-28] MEDS: Morphine Sulfate 2mg/ml Inj(IV/IM USE ONLY) IVP PRN (19:45)
[2017-12-28 20:00] VITALS: BP 161/105
--- NOTE | 2017-12-28 20:45 | Consultation ---
DATE OF CONSULTATION: 12/28/2017 NOTE: INCOMPLETE DICTATION INFECTIOUS DISEASE CONSULTATION CONSULTING PHYSICIAN: Bella Valdes M.D. ATTENDING PHYSICIAN: Melanie Byrne M.D. REFERRING PHYSICIAN: Melanie Byrne M.D. REASON FOR CONSULTATION: ESBL E. coli and ESBL Klebsiella UTI, possible sepsis, elevated white count, possible pneumonia, leukocytosis. The patient's chief complaint coming into the hospital is atrial fibrillation with rapid ventricular response. Bella Valdes M.D. DR: LETY JOB#: [id number] CC:
[2017-12-28] MEDS: Iron Sucrose 100 MG in NS 55 ML IV SCH (21:37)
--- NOTE | 2017-12-28 21:45 | Consultation ---
DATE OF CONSULTATION: 12/28/2017 INFECTIOUS DISEASE CONSULTATION CONSULTING PHYSICIAN: Bella Valdes M.D. ATTENDING PHYSICIAN: Melanie Byrne M.D. REFERRING PHYSICIAN: Melanie Byrne M.D. REASON FOR CONSULTATION: ESBL E. coli and Klebsiella UTI, possible sepsis, elevated white count, possible pneumonia. PATIENT'S CHIEF COMPLAINT COMING INTO THE HOSPITAL: Atrial fibrillation with rapid ventricular response. HISTORY OF PRESENT ILLNESS: This is a 72-year-old female, who comes into [facility] with atrial fibrillation with rapid ventricular response. The patient currently is on telemetry unit and is not a very good historian. She is alert, but nonverbal. The patient was noted to have a positive urinalysis with 3+ leukocyte esterase and too many to count white blood cells and many bacteria. Urine culture was obtained and it was found the patient had ESBL E. coli and Klebsiella pneumoniae. Both of them sensitive to meropenem, which the patient currently was started on yesterday. Chest x-ray shows possible pneumonia, this is from 12/24/2017 and a sputum culture was ordered yesterday and a followup chest x-ray has been ordered. The patient currently is on meropenem. The patient cannot add to this history. MAR was noted. Orders were noted. Notes were reviewed. Case discussed with RN. PAST MEDICAL HISTORY: She has a past medical history of seizures, history of dysphagia, history of hyperlipidemia, vaginal bleeding, CVA, aspiration risk, history of atrial fibrillation with rapid ventricular response, history of laceration to forehead, history of head contusion, history of dementia, history of hypertension, history of dysphagia and PEG tube, history of falls, atrial flutter, pulmonary nodules, history of vaginal mass, acute kidney injury with elevated creatinine, history of UTIs in the past, history of hydronephrosis, and hypertension. She has anemia also. She has a history of dementia and history of CHF. MEDICATIONS: Upon reviewing the MAR, the patient is on following medications. She is on meropenem. She is on IV fluids, morphine, metoprolol, metoclopramide, , and Keppra. She is on Seroquel and mirtazapine. She was on Isovue. Outside medications noted and reconciliated. ALLERGIES: No known drug allergies. No antibiotic allergies. SOCIAL HISTORY: Negative for smoking, alcohol, or drug abuse. FAMILY HISTORY: Noncontributory. Negative for exposure to tuberculosis or cancer. REVIEW OF SYSTEMS: CONSTITUTIONAL: The patient has a Prather. She has generalized fatigue and weakness. She is alert, but nonverbal. No fever or chills. HEAD AND NECK: No obvious head pain, neck pain, or neck stiffness. CARDIAC: No chest pain or pressors. GASTROINTESTINAL: No nausea, vomiting, or diarrhea. No hemoptysis. GENITOURINARY: She has a Prather. PULMONARY: Mild cough and congestion, but no significant secretions. SKIN: No rash or itching. NEUROLOGIC: No seizures. PHYSICAL EXAMINATION: VITAL SIGNS: Temperature is 98.1 degrees, pulse rate is 81, respiratory rate 20, blood pressure is 122/76 and saturating 95%. Pulse rate is as high as 109. GENERAL: Alert, opens eyes, but nonverbal. HEAD AND NECK: Oral exam, no thrush. Eye exam, no icterus. NECK: Supple. No JVD. Normocephalic. LUNGS: Bilateral rhonchi. Possible rales and crackles. HEART: Regular. No obvious gallop or murmur. ABDOMEN: Soft. Positive bowel sounds. Nontender. SKIN: No rash. MUSCULOSKELETAL: No effusions. Legs are without cellulitis. PERIPHERAL VASCULAR: No cyanosis or gangrene. GENITOURINARY: She has a Prather. Urine is cloudy. LINE SITES: Without phlebitis. NEUROLOGIC: General weakness and responsive. LABORATORY DATA: White count is at 13.0, hemoglobin 8.8, and platelet platelet count 287. Creatinine is 1.8. LFTs were noted. CULTURES: Urine culture grew out ESBL E. coli and Klebsiella pneumoniae. ESBL sensitivities were noted. Blood cultures are negative. Chest x-ray, this is from 12/24/2017. It showed interstitial congestion with right midlung airspace opacity developing. This could be edema or infectious process. Sputum cultures ordered and pending. Urinalysis had 3+ leukocyte esterase, too many to count white blood cells and many bacteria. ASSESSMENT AND PLAN: 1. The patient has extended-spectrum beta-lactamase Escherichia coli urinary tract infection and Klebsiella pneumoniae urinary tract infection with elevated white count, possible sepsis, systemic inflammatory response syndrome criteria. The patient also has aspiration and healthcare-acquired pneumonia versus edema. At this time, we will place the patient on meropenem, this is day #2. Check followup labs. Watch white cell count. Watch creatinine. Check sputum culture, followup labs, and chest x-ray. Continue with meropenem for complicated urinary tract infection with possible sepsis, elevated white count, and again possible pneumonia. Carbapenems are the best choice including meropenem for extended-spectrum beta-lactamase organisms. Plan on 10 to 14 day course pending on clinical response. 2. Acute kidney injury, elevated creatinine. 3. Cerebrovascular accident and weakness. 4. Hypertension. 5. Blood pressure treatment per primary. 6. Dysphagia. Gastrostomy tube. 7. Seizures. Watch closely on meropenem. 8. History of vaginal bleed. 9. Lung nodule, questionable metastasis. 10. Vaginal bleeding. 11. Hyperlipidemia. 12. Weakness secondary to cerebrovascular accident. 13. Atrial fibrillation with rapid ventricular response. 14. History dementia. 15. Atrial flutter. 16. Vaginal mass. 17. Anemia. 18. History of hydronephrosis. 19. History of urinary tract infections. 20. Past medical history noted. 21. No known allergies. 22. Social history is negative. 23. Family history is noncontributory. 24. MAR was noted. 25. Case discussed with RN. 26. Skin care protocol. 27. Continue treatment per primary consultants. 28. Notes and records were noted. Orders were noted. Bella Valdes M.D. DR: LETY JOB#: [id number] CC:
--- NOTE | 2017-12-28 22:15 | Cardiology Progress Note ---
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 -Hold aspirin due to bleeding - Continue Statin -Rate control with metoprolol 75 mg TID, can not cardiovert due to inability to anticoagulate and bleeding risk -echocardiogram - reviewed, normal LV function, grade III diastolic dysfunction and moderate pulmonary hypertension -Spot dose diuretics to keep negative and reduce filling pressures, lasix 20 mg daily -Rhythm was atrial flutter vs atrial tachycardia, no anticoagulation needed in this rhythm -monitor BP, slowly introduce medications as needed, concern for polypharmacy and hypotension as culprit given 4 anti hypertensive medications -continue norvasc 5 mg daily for now -supportive care -Hysteroscopy for biopsy to determine prognosis - transfer to [facility] -Left atrial myoxma not seen on TTE, would need KARISSA but would not change coordinator, currently it is not encroaching on the mitral valve to be clinically significant Subjective Cardiovascular: Reports: no symptoms Respiratory: Reports: no symptoms Gastrointestinal/Abdominal: Reports: no symptoms Genitourinary: Reports: no symptoms Subjective No acute events, vitals stable, vaginal packing removed, pruitt irrigated Patient was not accepted to [facility] Objective Last 24 Hour Vital Signs Date Time Temp Pulse Resp B/P (MAP) Pulse Ox O2 Delivery O2 Flow Rate FiO2 12/28/17 21:24 120 161/105 12/28/17 16:00 80 12/28/17 15:57 98.1 81 20 122/76 (91) 95 98.1 12/28/17 13:35 80 127/78 12/28/17 12:00 80 12/28/17 11:57 98.4 86 19 127/78 (94) 98 98.4 12/28/17 08:55 Nasal Cannula 3.0 32 12/28/17 08:55 79 Nasal Cannula 3.0 32 12/28/17 08:50 Nasal Cannula 2.0 12/28/17 08:00 89 12/28/17 08:00 98.3 90 19 129/81 (97) 99 98.3 12/28/17 05:33 94 147/74 12/28/17 04:00 97.0 109 18 152/99 (116) 100 97.0 12/28/17 03:57 92 12/28/17 00:00 97.8 93 18 146/84 (104) 100 97.8 12/27/17 23:33 99 General Appearance: WD/WN, no apparent distress EENT: PERRL/EOMI, normal ENT inspection, TMs normal Neck: non-tender, normal alignment Rhythm: NSR Cardiovascular: normal peripheral pulses, normal rate, regular rhythm Respiratory/Chest: chest wall non-tender, lungs clear Abdomen: normal bowel sounds, non tender, no organomegaly, no mass Extremities: normal range of motion 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 Intake and Output 12/27/17 12/28/17 19:00 07:00 Output Total 400 ml 600 ml Balance -400 ml -600 ml Output Urine Total 400 ml 600 ml Laboratory Tests Test 12/28/17 06:00 White Blood Count 13.0 K/UL (4.8-10.8) H Red Blood Count 3.32 M/UL (4.20-5.40) L Hemoglobin 8.8 G/DL (12.0-16.0) L Hematocrit 27.5 % (37.0-47.0) L Mean Corpuscular Volume 83 FL (80-99) Mean Corpuscular Hemoglobin 26.4 PG (27.0-31.0) L Mean Corpuscular Hemoglobin Concent 31.8 G/DL (32.0-36.0) L Red Cell Distribution Width 22.4 % (11.6-14.8) H Platelet Count 287 K/UL (150-450) Mean Platelet Volume 6.3 FL (6.5-10.1) L Neutrophils (%) (Auto) 62.3 % (45.0-75.0) Lymphocytes (%) (Auto) 26.1 % (20.0-45.0) Monocytes (%) (Auto) 11.0 % (1.0-10.0) H Eosinophils (%) (Auto) 0.0 % (0.0-3.0) Basophils (%) (Auto) 0.7 % (0.0-2.0) Sodium Level 142 MMOL/L (136-145) Potassium Level 4.3 MMOL/L (3.5-5.1) Chloride Level 108 MMOL/L (98-107) H Carbon Dioxide Level 26 MMOL/L (21-32) Anion Gap 9 mmol/L (5-15) Blood Urea Nitrogen 26 mg/dL (7-18) H Creatinine 1.8 MG/DL (0.55-1.30) H Estimat Glomerular Filtration Rate mL/min (>60) Glucose Level 116 MG/DL (74-106) H Calcium Level 8.3 MG/DL (8.5-10.1) L Total Bilirubin 0.4 MG/DL (0.2-1.0) Aspartate Amino Transf (AST/SGOT) 34 U/L (15-37) Alanine Aminotransferase (ALT/SGPT) 21 U/L (12-78) Alkaline Phosphatase 182 U/L (46-116) H Pro-B-Type Natriuretic Peptide 26671 pg/mL (0-125) H Total Protein 8.0 G/DL (6.4-8.2) Albumin 1.9 G/DL (3.4-5.0) L Globulin 6.1 g/dL Albumin/Globulin Ratio 0.3 (1.0-2.7) L Nikolai Brooks M.D. Dec 28, 2017 22:15
[2017-12-29] VITALS: BP 154/89
[2017-12-29] MEDS: D5NS 1,000 ML IV SCH (02:28)
[2017-12-29 04:00] VITALS: BP 161/94
[2017-12-29] MEDS: Metoprolol Tartrate 50mg tab ORAL SCH (05:59)
[2017-12-29] MEDS: Morphine Sulfate 2mg/ml Inj(IV/IM USE ONLY) IVP PRN ×2 (05:59→09:32)
[2017-12-29 06:28] LABS: BASOPHILS % (AUTO) 0.4 % (0.0-2.0); HEMATOCRIT 27.9 % (37.0-47.0); HEMOGLOBIN 8.5 G/DL (12.0-16.0); LYMPHOCYTES % (AUTO) 18.4 % (20.0-45.0); MEAN CORPUSCULAR VOLUME 83 FL (80-99); MONOCYTES % (AUTO) 9.6 % (1.0-10.0); NEUTROPHILS % (AUTO) 71.6 % (45.0-75.0); PLATELET COUNT 245 K/UL (150-450); RED BLOOD COUNT 3.37 M/UL (4.20-5.40); RED CELL DISTRIBUTION WIDTH 22.3 % (11.6-14.8); WHITE BLOOD COUNT 8.3 K/UL (4.8-10.8)
[2017-12-29 07:09] LABS: ANION GAP 8 mmol/L (5-15); BLOOD UREA NITROGEN 21 mg/dL (7-18); CALCIUM 8.1 MG/DL (8.5-10.1); CARBON DIOXIDE 25 MMOL/L (21-32); CHLORIDE 110 MMOL/L (98-107); CREATININE 1.3 MG/DL (0.55-1.30); PHOSPHORUS 2.5 MG/DL (2.5-4.9); POTASSIUM 3.6 MMOL/L (3.5-5.1); SODIUM 143 MMOL/L (136-145)
[2017-12-29 07:20] LABS: ALANINE AMINOTRANSFERASE 18 U/L (12-78); ALBUMIN 1.7 G/DL (3.4-5.0); ALKALINE PHOSPHATASE 165 U/L (46-116); ASPARTATE AMINO TRANSFERASE 31 U/L (15-37); BILIRUBIN,DIRECT 0.2 MG/DL (0.0-0.3); BILIRUBIN,TOTAL 0.4 MG/DL (0.2-1.0)
--- NOTE | 2017-12-29 07:49 | Urology Progress Note ---
Assessment/Plan Assessment/Plan 1. Perineal mass, which may be gynecologic or urologic in origin, but is concerning for malignancy. 2. Urinary incontinence. 3. Probable neurogenic bladder. 4. Renal cyst. 5. SUNNY, improved. 6. Hydronephrosis. &. 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 Ragsdale renal fxn improving, will hold off on nephrostomy for now, concern for bleeding will likely need transfer to tertiary care center or facility with blood/ transfusion free medicine Subjective Allergies: Coded Allergies: No Known Allergies (Unverified , 04/30/16) Subjective all noted, pt looks comfortable off CBI, pruitt hand irrigated PRN no sig bleeding reported Objective Last 24 Hour Vital Signs Date Time Temp Pulse Resp B/P (MAP) Pulse Ox O2 Delivery O2 Flow Rate FiO2 12/29/17 07:19 Nasal Cannula 2.0 12/29/17 05:59 85 154/107 12/29/17 04:02 89 12/29/17 04:00 97.5 85 17 161/94 (116) 97 97.5 12/29/17 00:00 97.2 86 19 154/89 (110) 100 97.2 12/28/17 23:39 102 12/28/17 21:24 120 161/105 12/28/17 21:00 Nasal Cannula 2.0 12/28/17 20:25 100 12/28/17 20:00 97.9 75 18 161/105 (123) 100 97.9 12/28/17 16:00 80 12/28/17 15:57 98.1 81 20 122/76 (91) 95 98.1 12/28/17 13:35 80 127/78 12/28/17 12:00 80 12/28/17 11:57 98.4 86 19 127/78 (94) 98 98.4 12/28/17 08:55 Nasal Cannula 3.0 32 7/30/18 08:55 79 Nasal Cannula 3.0 32 12/28/17 08:50 Nasal Cannula 2.0 12/28/17 08:00 89 12/28/17 08:00 98.3 90 19 129/81 (97) 99 98.3 Intake and Output 12/28/17 12/29/17 19:00 07:00 Intake Total 1155 ml Output Total 1800 ml Balance 1155 ml -1800 ml Intake Free Water 260 ml IV Total 655 ml Tube Feeding 240 ml Output Urine Total 1800 ml # Voids 1 # Bowel Movements 2 Microbiology Date/Time Source Procedure Growth Status 12/24/17 15:00 Blood Blood Culture - Preliminary NO GROWTH AFTER 4 DAYS Resulted 12/19/17 17:50 Vaginal Gram Stain - Final Complete 12/19/17 17:50 Vaginal Neisseria gonorrhoeae Culture - Final No Neisseria gonorrhoeae isolated Complete 12/18/17 23:04 Nasal Nares MRSA Culture - Final NO METHICILLIN RESISTANT STAPH AUREUS... Complete 12/24/17 20:20 Straight Cath Urine Culture - Final Escherichia Coli - Esbl Klebsiella Pneumoniae Esbl Complete 12/18/17 23:04 Rectum VRE Culture - Final Enterococcus Faecalis - Vre Complete 12/18/17 23:04 Rectum - Final NO CARBAPENEM-RESISTANT ENTEROBACTERI... Complete Current Medications Medications (Trade) Dose Ordered Sig/Renea Route PRN Reason Start Time Stop Time Status Last Admin Dose Admin Dextrose/Sodium Chloride 1,000 ml @ 50 mls/hr Q20H IV 12/26/17 14:15 01/25/18 14:14 12/29/17 02:28 Iron Sucrose 100 mg/Sodium Chloride 60 ml @ 125 mls/hr QHS IV 12/26/17 21:00 12/30/17 21:29 12/28/17 21:37 Levetiracetam (Keppra) 750 mg Q12HR NG 12/23/17 09:11 01/22/18 09:10 12/28/17 21:24 Meropenem 500 mg/ Sodium Chloride 55 ml @ 110 mls/hr Q8H IVPB 12/29/17 00:00 01/03/18 00:00 12/28/17 23:38 Metoclopramide HCl (Reglan) 5 mg Q6H PRN NG for gastric residuals >50cc 12/23/17 15:15 01/22/18 15:14 Metoprolol Tartrate (Lopressor) 75 mg EVERY 8 HOURS ORAL 12/23/17 22:00 01/18/18 08:59 12/29/17 05:59 Mirtazapine (Remeron) 15 mg BEDTIME ORAL 12/19/17 21:00 01/18/18 20:59 12/28/17 21:23 Morphine Sulfate (Morphine Sulfate) 2 mg Q3HR PRN IVP For Pain 12/25/17 22:30 01/01/18 22:29 12/29/17 05:59 Quetiapine Fumarate (SEROquel) 25 mg Q6H PRN ORAL agitation 12/22/17 15:15 01/21/18 15:14 12/26/17 08:44 Laboratory Tests 12/29/17 05:30: White Blood Count 8.3, Red Blood Count 3.37L, Hemoglobin 8.5L, Hematocrit 27.9L , Mean Corpuscular Volume 83, Mean Corpuscular Hemoglobin 25.2L, Mean Corpuscular Hemoglobin Concent 30.5L, Red Cell Distribution Width 22.3H, Platelet Count 245, Mean Platelet Volume 5.7L, Neutrophils (%) (Auto) 71.6, Lymphocytes (%) (Auto) 18.4L, Monocytes (%) (Auto) 9.6, Eosinophils (%) (Auto) 0.0, Basophils (%) (Auto) 0.4, Sodium Level 143, Potassium Level 3.6, Chloride Level 110H, Carbon Dioxide Level 25, Anion Gap 8, Blood Urea Nitrogen 21H, Creatinine 1.3, Estimat Glomerular Filtration Rate , Glucose Level 155H, Uric Acid 8.1H, Calcium Level 8.1L, Phosphorus Level 2.5, Magnesium Level 1.6L, Total Bilirubin 0.4, Direct Bilirubin 0.2, Aspartate Amino Transf (AST/SGOT) 31 , Alanine Aminotransferase (ALT/SGPT) 18, Alkaline Phosphatase 165H, C-Reactive Protein, Quantitative 11.3H, Pro-B-Type Natriuretic Peptide 67282E, Total Protein 7.6, Albumin 1.7L Height (Feet): 5 Height (Inches): 7.00 Weight (Pounds): 172 Objective exam stable, no obvious visible bleeding in vaginal area pruitt indwelling, urine michelle/blood-tinged, some debris noted renal u/s (12/25) noted JOSH PENNINGTON Dec 29, 2017 07:49
[2017-12-29] MEDS: levETIRAcetam 500mg/5ml Liquid NG SCH (08:06)
[2017-12-29] MEDS: Meropenem 500mg in NS 55ml IVPB SCH (08:06)
[2017-12-29 08:42] VITALS: BP 152/98
--- NOTE | 2017-12-29 10:09 | Nephrology Progress Note ---
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 Worsening Anemia Dysphagia, status post gastrostomy tube. Chronic atrial fibrillation with history of rapid ventricular response. Rate controlled on aspirin Hypertension, on multiple hypertensive medications. Encephalopathy Sz disorder h/o CVA / Dementia Plan Avoid Nephrotoxics DC IV Fluid- Add Hydralazin for BP DC planning monitor renal parameters as OP Hold Nephrostomy Stop Lasix- Stop Folic Stop flomax DC Flomax DC Lipitor per Uro / consultants Subjective ROS Limited/Unobtainable: No Constitutional: Reports: malaise, weakness Objective Objective Last 24 Hour Vital Signs Date Time Temp Pulse Resp B/P (MAP) Pulse Ox O2 Delivery O2 Flow Rate FiO2 12/29/17 09:32 97.1 12/29/17 08:42 97.1 77 18 152/98 (116) 97 97.1 12/29/17 07:40 81 12/29/17 07:19 Nasal Cannula 2.0 12/29/17 05:59 85 154/107 12/29/17 04:02 89 12/29/17 04:00 97.5 85 17 161/94 (116) 97 97.5 12/29/17 00:00 97.2 86 19 154/89 (110) 100 97.2 12/28/17 23:39 102 12/28/17 21:24 120 161/105 12/28/17 21:00 Nasal Cannula 2.0 12/28/17 20:25 100 12/28/17 20:00 97.9 75 18 161/105 (123) 100 97.9 12/28/17 16:00 80 12/28/17 15:57 98.1 81 20 122/76 (91) 95 98.1 12/28/17 13:35 80 127/78 12/28/17 12:00 80 12/28/17 11:57 98.4 86 19 127/78 (94) 98 98.4 Intake and Output 12/28/17 12/29/17 19:00 07:00 Intake Total 1155 ml 30 ml Output Total 1800 ml Balance 1155 ml -1770 ml Intake Free Water 260 ml IV Total 655 ml Tube Feeding 240 ml 30 ml Output Urine Total 1800 ml # Voids 1 # Bowel Movements 2 Laboratory Tests 12/29/17 05:30: White Blood Count 8.3, Red Blood Count 3.37L, Hemoglobin 8.5L, Hematocrit 27.9L , Mean Corpuscular Volume 83, Mean Corpuscular Hemoglobin 25.2L, Mean Corpuscular Hemoglobin Concent 30.5L, Red Cell Distribution Width 22.3H, Platelet Count 245, Mean Platelet Volume 5.7L, Neutrophils (%) (Auto) 71.6, Lymphocytes (%) (Auto) 18.4L, Monocytes (%) (Auto) 9.6, Eosinophils (%) (Auto) 0.0, Basophils (%) (Auto) 0.4, Sodium Level 143, Potassium Level 3.6, Chloride Level 110H, Carbon Dioxide Level 25, Anion Gap 8, Blood Urea Nitrogen 21H, Creatinine 1.3, Estimat Glomerular Filtration Rate , Glucose Level 155H, Uric Acid 8.1H, Calcium Level 8.1L, Phosphorus Level 2.5, Magnesium Level 1.6L, Total Bilirubin 0.4, Direct Bilirubin 0.2, Aspartate Amino Transf (AST/SGOT) 31 , Alanine Aminotransferase (ALT/SGPT) 18, Alkaline Phosphatase 165H, C-Reactive Protein, Quantitative 11.3H, Pro-B-Type Natriuretic Peptide 74236I, Total Protein 7.6, Albumin 1.7L Height (Feet): 5 Height (Inches): 7.00 Weight (Pounds): 172 General Appearance: no apparent distress Cardiovascular: normal rate Respiratory/Chest: decreased breath sounds Abdomen: other - GT Objective no other change Aris Ragsdale MD Dec 29, 2017 10:09
[2017-12-29] MEDS ORDERED: Acetaminophen 650mg/20.3ml GT PRN (10:15)
--- NOTE | 2017-12-29 11:41 | Diagnostic Imaging Report ---
Indication: Shortness of breath Technique: XRAY Chest 1v Comparison: 12/24/2017; CT of the chest 12/21/2017 Findings: Heart size and mediastinal contours stable. Atherosclerotic calcifications again noted in the aorta. Mitral annular calcifications again noted. Gastrostomy tube partially visualized. Known bilateral pulmonary nodules better appreciated on prior CT of the chest. There is increasing airspace disease in the right lung most concerning for worsening pneumonia. Clinical correlation and follow-up exam recommended. IMPRESSION: Increasing asymmetric interstitial and airspace disease in the right lung. Findings are most concerning for worsening infectious infiltrate/pneumonia. Additional etiologies not excluded. Clinical correlation and follow-up recommended. Known bilateral pulmonary nodules better appreciated on prior CT of the chest.
[2017-12-29] MEDS ORDERED: HydrALAZINE 25mg tab GT SCH (12:00)
[2017-12-29 12:18] VITALS: BP 160/75
[2017-12-29] MEDS ORDERED: METOPROLOL TART50 MG ORAL (12:40)
[2017-12-29] MEDS ORDERED: MEROPENEM500 MG IV (12:40)
--- NOTE | 2017-12-29 13:11 | General Progress Note ---
Assessment/Plan Status: stable Assessment/Plan MDD Anxiety d/o Vascular Dementia the pt lacks capacity recommend palliative care rec dnr/dni seroquel 25mg q 6hr/prn/anxiety Subjective Date patient seen: Dec 29, 2017 Neurologic/Psychiatric: Reports: anxiety, depressed, emotional problems Allergies: Coded Allergies: No Known Allergies (Unverified , 04/30/16) Subjective the pt is calm asleep confused Objective Last 24 Hour Vital Signs Date Time Temp Pulse Resp B/P (MAP) Pulse Ox O2 Delivery O2 Flow Rate FiO2 12/29/17 12:18 97.7 74 18 160/75 (103) 97 97.7 12/29/17 11:50 90 12/29/17 11:23 160/96 12/29/17 10:25 77 152/98 12/29/17 10:02 97.1 12/29/17 09:32 97.1 12/29/17 08:42 97.1 77 18 152/98 (116) 97 97.1 12/29/17 08:15 95 Nasal Cannula 3.0 32 12/29/17 08:15 Nasal Cannula 3.0 32 12/29/17 07:40 81 12/29/17 07:19 Nasal Cannula 2.0 12/29/17 05:59 85 154/107 12/29/17 04:02 89 12/29/17 04:00 97.5 85 17 161/94 (116) 97 97.5 12/29/17 00:00 97.2 86 19 154/89 (110) 100 97.2 12/28/17 23:39 102 12/28/17 21:24 120 161/105 12/28/17 21:00 Nasal Cannula 2.0 12/28/17 20:25 100 12/28/17 20:00 97.9 75 18 161/105 (123) 100 97.9 12/28/17 16:00 80 12/28/17 15:57 98.1 81 20 122/76 (91) 95 98.1 12/28/17 13:35 80 127/78 Intake and Output 12/28/17 12/29/17 18:59 06:59 Intake Total 1125 ml 30 ml Output Total 1800 ml Balance 1125 ml -1770 ml Intake Free Water 260 ml IV Total 655 ml Tube Feeding 210 ml 30 ml Output Urine Total 1800 ml # Voids 1 # Bowel Movements 2 Laboratory Tests 12/29/17 05:30: White Blood Count 8.3, Red Blood Count 3.37L, Hemoglobin 8.5L, Hematocrit 27.9L , Mean Corpuscular Volume 83, Mean Corpuscular Hemoglobin 25.2L, Mean Corpuscular Hemoglobin Concent 30.5L, Red Cell Distribution Width 22.3H, Platelet Count 245, Mean Platelet Volume 5.7L, Neutrophils (%) (Auto) 71.6, Lymphocytes (%) (Auto) 18.4L, Monocytes (%) (Auto) 9.6, Eosinophils (%) (Auto) 0.0, Basophils (%) (Auto) 0.4, Sodium Level 143, Potassium Level 3.6, Chloride Level 110H, Carbon Dioxide Level 25, Anion Gap 8, Blood Urea Nitrogen 21H, Creatinine 1.3, Estimat Glomerular Filtration Rate , Glucose Level 155H, Uric Acid 8.1H, Calcium Level 8.1L, Phosphorus Level 2.5, Magnesium Level 1.6L, Total Bilirubin 0.4, Direct Bilirubin 0.2, Aspartate Amino Transf (AST/SGOT) 31 , Alanine Aminotransferase (ALT/SGPT) 18, Alkaline Phosphatase 165H, C-Reactive Protein, Quantitative 11.3H, Pro-B-Type Natriuretic Peptide 41821Q, Total Protein 7.6, Albumin 1.7L Height (Feet): 5 Height (Inches): 7.00 Weight (Pounds): 172 General Appearance: no apparent distress, lethargic, confused Neurologic: depressed affect Kunal Tse MD Dec 29, 2017 13:11
--- NOTE | 2017-12-29 13:18 | Discharge Summary ---
Discharge Summary Hospital Course Date of Admission Dec 18, 2017 at 21:46 Date of Discharge December 29, 2017 Admitting Diagnosis atrial fibrillation with rapid ventricular responc HPI Marcelle Marquez is a 72 year old female who was admitted on Dec 18, 2017 at 21:46 for Atrial Fibrilation With Rapid Ventricular Response HPI Patient is a 72-year-old female w/ Hx a fib, CVA, Dementia, G tube who presented after a witnessed fall. Patient was noted to have fallen onto a nightstand. The patient was not noted to have lost consciousness. ER Course Patient presented after a fall. Differential diagnosis included was not limited to neck fracture, CVA, close head injury, syncopal episode, basilar ischemia. Because of complexity of patient's case laboratory testing and imaging studies were ordered. The EKG interpreted by me showed atrial flutter flutter with variable block with a rate of 117. Had the patient was given tetanus vaccine. CT the head read by radiology showed encephalomalacia with chronic white matter changes and scattered chronic infarctions. Wound is irrigated and sutured with absorbable suture. Patient given IV diltiazem with improvement in her heart rate. Patient was discussed with Dr. Barrington Wolf for Dr. Fernando for inpatient management due to covering physician. Pt has remained afebrile and HDS w/ good rate control after her home metoprolol re-started. Consultations - Cardiology - OBGYN - Urology - Oncology - GI - Nephrology - ID Procedures cystoscopy with biopsy Hospital Course Patient was admitted for uncontrolled atrial flutter. Cardiology was consulted. Patient was also noted to have vaginal bleeding and vaginal mass. Heparin and ASA were discontinued and patient was unable to be cardioverted per cardiology given no anticoagulation. Therefore patient's metoprolol was increased and rate control was achieved. CT a/p was also done which showed vaginal mass extending into bladder wall or bladder mass extending into vaginal wall. CT chest showed multiple pulmonary nodules concerning for metastasis. OBGYN, urology, and oncology were consulted. Per OBGYN and urology, patient needed to be transferred to a tertiary care center for biopsy given patient was a Jain, refused blood transfusions per family, and hemoglobin was slowly downtrending. Patient was also started on IV venofer per hematology given downtrending hemoglobin. Patient was however denied transfer. Patient was also noted to have gastric residuals and GI was consulted. Reglan was given ATC and patient's Cr uptrended. Therefore reglan was dc'ed and Cr normalized again. Patient continued to tolerate tube feeds again. Subsequently, patient started having uptrending Cr and nephrology was consulted. Patient underwent a cystoscopy with pruitt placement and biopsy of the bladder wall/mass. Urine culture showed ESBL UTI and ID was consulted. Patient was started on IV meropenam. Renal ultrasound showed bilateral hydronephrosis. Nephrostomy was ordered but given downtrending Cr, this was dc'ed per nephrology. Patient's Cr normalized and patient's Cr at discharge was 1.3. Patient was therefore afebrile and hemodynamically stable for discharge. Patient was cleared from discharge from all consultants including ID, nephrology, GI, cardiology, OBGYN, urology, and oncology. Patient was continued on IV meropenam for a total of 10 days to be continued at SNF. Hospice vs. further workup/chemotherapy was discussed with family after full workup of cancer. Per family, they wanted to continue to think about this and therefore preferred full workup for now. Patient was therefore set up with follow up appointments with oncology, Dr. Delarosa, OBGYN, Dr. Chapman, and urology, Dr. Soares. Pathology from bladder wall biopsy will be followed up on. Physical Examination Upon Discharge General: NAD, confused but at baseline HEENT: atraumatic, no LAD, supple, PEERL Lungs: CTAB Cardiology: irregularly regular, no murmurs, rubs, or gallops Abdomen: +PEG, soft, nontender, nondistended Extremities: no edema Skin: no rash Neuro: A&O x 1 Discharge Medications New Medications: Meropenem (Meropenem) 500 Mg Vial 500 MG IV Q8HR for 8 Days, #24 VIAL Metoprolol Tartrate* (Metoprolol Tartrate*) 50 Mg Tablet 75 MG ORAL EVERY 8 HOURS for 30 Days, #90 TAB Continued Medications: Acetaminophen* (Acetaminophen 325MG Tablet*) 325 Mg Tablet 650 MG ORAL Q4H PRN for For Pain, TAB (This prescription has been renewed) Aspirin* (Aspirin*) 81 Mg Tab.chew 81 MG NG DAILY for 90 Days, TAB Atorvastatin Calcium* (Lipitor*) 80 Mg Tablet 80 MG ORAL BEDTIME, TAB (This prescription has been renewed) Cranberry Fruit (Cranberry) 400 Mg Tablet 400 MG GT, TAB (This prescription has been renewed) Folic Acid* (Folic Acid*) 1 Mg Tablet 1 MG ORAL DAILY, TAB (This prescription has been renewed) Levetiracetam (Levetiracetam) 500 Mg Tablet 750 MG NG Q12HR for 90 Days, TAB Methotrexate Sodium* (Methotrexate*) 2.5 Mg Tablet 2.5 MG PO, TAB (This prescription has been renewed) Mirtazapine* (Remeron*) 15 Mg Tablet 15 MG ORAL BEDTIME, TAB (This prescription has been renewed) Nifedipine (Nifedipine*) 20 Mg Capsule 30 MG ORAL EVERY 12 HOURS, CAP (This prescription has been renewed) Omeprazole (Omeprazole) 20 Mg Capsule.dr 20 MG ORAL DAILY, CAP (This prescription has been renewed) Paroxetine Hcl* (Paxil*) 20 Mg Tablet 20 MG ORAL DAILY, TAB 0 Refills (This prescription has been renewed) Sulfasalazine* (Azulfidine*) 500 Mg Tablet 500 MG ORAL BEFORE MEALS, TAB (This prescription has been renewed) Tamsulosin HCl (Flomax) 0.4 Mg Cap.er.24h 0.4 MG ORAL DAILY for 30 Days, CAP Trazodone* (Trazodone*) 150 Mg Tablet 12.5 MG ORAL BEDTIME, TAB (This prescription has been renewed) Valsartan (Diovan) 80 Mg Tab 80 MG ORAL DAILY, TAB (This prescription has been renewed) Discontinued Medications: Ampicillin (Ampicillin Trihydrate) 250 Mg Capsule 500 MG PO QID for 7 Days, #28 CAP via PEG Hydralazine Hcl* (Hydralazine Hcl*) 10 Mg Tablet 10 MG ORAL EVERY 6 HOURS, TAB Levofloxacin* (Levaquin*) 500 Mg Tablet 500 MG ORAL DAILY for 7 Days, #7 TAB 0 Refills via PEG Metoprolol Tartrate* (Metoprolol Tartrate*) 50 Mg Tablet 50 MG ORAL EVERY 12 HOURS, TAB Metoprolol Tartrate* (Metoprolol Tartrate*) 50 Mg Tablet 50 MG ORAL Q12HR for 90 Days, TAB Nifedipine Xl* (Procardia Xl*) 30 Mg Tab.er.24 30 MG ORAL Q12HR for 90 Days, TAB Discharge Condition Upon Discharge: improving, stable Discharge Disposition Patient was discharged to SNF/Subacute Facility(03) Discharge Diagnoses: (1) Patient is Congregational (2) S/P percutaneous endoscopic gastrostomy (PEG) tube placement (3) Atrial fibrillation (4) Acute kidney injury (5) Toxic metabolic encephalopathy (6) Elevated troponin (7) HTN (hypertension) (8) UTI (urinary tract infection) (9) CHF (congestive heart failure) (10) Depression (11) Dementia (12) Anemia (13) Urinary tract infection due to ESBL Klebsiella (14) Leukocytosis (15) Hydronephrosis (16) SUNNY (acute kidney injury) (17) Vaginal mass (18) Severe malnutrition (19) Pulmonary nodule (20) Anemia (21) Atrial flutter (22) Dehydration (23) Fall (24) H/O: CVA (cerebrovascular accident) (25) lives at snf (26) Atrial fibrillation with RVR (27) HLD (hyperlipidemia) (28) Seizure disorder (29) Vaginal bleeding (30) Dysphagia (31) Hyperkalemia (32) Atrial fibrillation with RVR (33) Head contusion (34) Laceration of forehead (35) Lactic acid acidosis (36) Acute blood loss anemia (37) Hypernatremia Hattie Sow NP Dec 29, 2017 13:17
[2017-12-29] MEDS ORDERED: Metoprolol Tartrate 50mg tab ORAL SCH (14:00)
--- NOTE | 2017-12-29 14:07 | General Progress Note ---
Assessment/Plan Status: stable Assessment/Plan #. Heterogeneous mass lesion involving the bladder, with portions of the posterior bladder inseparable from the lower uterine segment/cervix and vagina. Findings are highly concerning for malignancy, either bladder or gynecologic ( vaginal/cervical/uterine) in etiology --> CT C/A/P with iv contrast: Heterogeneous mass lesion within the bladder, contiguous with heterogeneous mass in the vagina highly concerning for malignancy. Multiple bilateral pulmonary nodules most concerning for metastatic disease. Small pelvic lymph nodes. 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 --> tumor markers pending, cea is elevated approx 42 --> eval with uro as needed, reviewed his recs, appreciated --> will likely need biopsy with with assembler adjuster-onc or with cystocsopy with uro --> To be managed as outpatient once stabilized vs transfer to higher level of care #. Anemia due to iron deficiency --> eval for gi bleed as need v vaginal bleed --> iron iv has been completed x 5 days. --> 12/25: Hgb 7.3, IV iron started x5 days. --> appreciate recs from Dr. Chapman (Rotary Pump Operator) --> Jehovahs witness, refusing transfusion. #. Dysphagia, status post gastrostomy tube. #. Chronic atrial fibrillation with history of rapid ventricular response. Rate controlled on aspirin --> anticoag hold given bleeding and JW #. Hypertension, on multiple hypertensive medications. The time the note was entered does not necessarily correspond to the time the patient was seen. Subjective Date patient seen: Dec 29, 2017 ROS Limited/Unobtainable: Yes Hematologic/Lymphatic: Reports: anemia Allergies: Coded Allergies: No Known Allergies (Unverified , 04/30/16) All Systems: reviewed and negative except above Subjective Pt awake and alert. No acute events. CXR today shows increasing asymmetric interstitial and airspace disease in the right lung. DC planning. Objective Last 24 Hour Vital Signs Date Time Temp Pulse Resp B/P (MAP) Pulse Ox O2 Delivery O2 Flow Rate FiO2 12/29/17 13:46 90 166/99 12/29/17 12:18 97.7 74 18 160/75 (103) 97 97.7 12/29/17 11:50 90 7/31/18 11:23 160/96 12/29/17 10:25 77 152/98 12/29/17 10:02 97.1 12/29/17 09:32 97.1 12/29/17 08:42 97.1 77 18 152/98 (116) 97 97.1 12/29/17 08:15 95 Nasal Cannula 3.0 32 12/29/17 08:15 Nasal Cannula 3.0 32 12/29/17 07:40 81 12/29/17 07:19 Nasal Cannula 2.0 12/29/17 05:59 85 154/107 12/29/17 04:02 89 12/29/17 04:00 97.5 85 17 161/94 (116) 97 97.5 12/29/17 00:00 97.2 86 19 154/89 (110) 100 97.2 12/28/17 23:39 102 12/28/17 21:24 120 161/105 12/28/17 21:00 Nasal Cannula 2.0 12/28/17 20:25 100 12/28/17 20:00 97.9 75 18 161/105 (123) 100 97.9 12/28/17 16:00 80 12/28/17 15:57 98.1 81 20 122/76 (91) 95 98.1 Intake and Output 12/28/17 12/29/17 19:00 07:00 Intake Total 1155 ml 30 ml Output Total 1800 ml Balance 1155 ml -1770 ml Intake Free Water 260 ml IV Total 655 ml Tube Feeding 240 ml 30 ml Output Urine Total 1800 ml # Voids 1 # Bowel Movements 2 Laboratory Tests 12/29/17 05:30: White Blood Count 8.3, Red Blood Count 3.37L, Hemoglobin 8.5L, Hematocrit 27.9L , Mean Corpuscular Volume 83, Mean Corpuscular Hemoglobin 25.2L, Mean Corpuscular Hemoglobin Concent 30.5L, Red Cell Distribution Width 22.3H, Platelet Count 245, Mean Platelet Volume 5.7L, Neutrophils (%) (Auto) 71.6, Lymphocytes (%) (Auto) 18.4L, Monocytes (%) (Auto) 9.6, Eosinophils (%) (Auto) 0.0, Basophils (%) (Auto) 0.4, Sodium Level 143, Potassium Level 3.6, Chloride Level 110H, Carbon Dioxide Level 25, Anion Gap 8, Blood Urea Nitrogen 21H, Creatinine 1.3, Estimat Glomerular Filtration Rate , Glucose Level 155H, Uric Acid 8.1H, Calcium Level 8.1L, Phosphorus Level 2.5, Magnesium Level 1.6L, Total Bilirubin 0.4, Direct Bilirubin 0.2, Aspartate Amino Transf (AST/SGOT) 31 , Alanine Aminotransferase (ALT/SGPT) 18, Alkaline Phosphatase 165H, C-Reactive Protein, Quantitative 11.3H, Pro-B-Type Natriuretic Peptide 11711F, Total Protein 7.6, Albumin 1.7L Height (Feet): 5 Height (Inches): 7.00 Weight (Pounds): 172 General Appearance: no apparent distress, alert EENT: PERRL/EOMI Neck: normal alignment Cardiovascular: normal peripheral pulses, irregularly irregular Respiratory/Chest: no respiratory distress Abdomen: soft Jerry Delarosa MD Dec 29, 2017 14:07
--- NOTE | 2017-12-29 15:13 | GI Progress Note ---
Assessment/Plan Problems: (1) S/P percutaneous endoscopic gastrostomy (PEG) tube placement ICD Codes: Z93.1 - Gastrostomy status SNOMED: 303538907 (2) Anemia ICD Codes: D64.9 - Anemia, unspecified SNOMED: 054614350 (3) Dehydration ICD Codes: E86.0 - Dehydration SNOMED: 39885663 Status: stable Status Narrative Discussed with Dr. Man. Assessment/Plan supportive care GTFs per RD, pt tolerating feeding with no residual reglan to prn consider GTF change to Osmolite if residuals still high GT site care prn ppi fu labs okay for DC per GI standpoint The patient was seen and examined at bedside and all new and available data was reviewed in the patients chart. I agree with the above findings, impression and plan. (Patient seen earlier today. Signature stamp does not reflect patient encounter time.). - Ko Man MD Subjective Subjective limited Objective Last 24 Hour Vital Signs Date Time Temp Pulse Resp B/P (MAP) Pulse Ox O2 Delivery O2 Flow Rate FiO2 12/29/17 15:10 166/99 12/29/17 13:46 90 166/99 12/29/17 12:18 97.7 74 18 160/75 (103) 97 97.7 12/29/17 11:50 90 12/29/17 11:23 160/96 12/29/17 10:25 77 152/98 12/29/17 10:02 97.1 12/29/17 09:32 97.1 12/29/17 08:42 97.1 77 18 152/98 (116) 97 97.1 12/29/17 08:15 95 Nasal Cannula 3.0 32 12/29/17 08:15 Nasal Cannula 3.0 32 12/29/17 07:40 81 12/29/17 07:19 Nasal Cannula 2.0 12/29/17 05:59 85 154/107 12/29/17 04:02 89 12/29/17 04:00 97.5 85 17 161/94 (116) 97 97.5 12/29/17 00:00 97.2 86 19 154/89 (110) 100 97.2 12/28/17 23:39 102 12/28/17 21:24 120 161/105 7/30/18 21:00 Nasal Cannula 2.0 12/28/17 20:25 100 12/28/17 20:00 97.9 75 18 161/105 (123) 100 97.9 12/28/17 16:00 80 12/28/17 15:57 98.1 81 20 122/76 (91) 95 98.1 Intake and Output 12/28/17 12/29/17 19:00 07:00 Intake Total 1155 ml 30 ml Output Total 1800 ml Balance 1155 ml -1770 ml Free Water 260 ml IV Total 655 ml Tube Feeding 240 ml 30 ml Output Urine Total 1800 ml # Voids 1 # Bowel Movements 2 Laboratory Tests Test 12/29/17 05:30 White Blood Count 8.3 K/UL (4.8-10.8) Red Blood Count 3.37 M/UL (4.20-5.40) L Hemoglobin 8.5 G/DL (12.0-16.0) L Hematocrit 27.9 % (37.0-47.0) L Mean Corpuscular Volume 83 FL (80-99) Mean Corpuscular Hemoglobin 25.2 PG (27.0-31.0) L Mean Corpuscular Hemoglobin Concent 30.5 G/DL (32.0-36.0) L Red Cell Distribution Width 22.3 % (11.6-14.8) H Platelet Count 245 K/UL (150-450) Mean Platelet Volume 5.7 FL (6.5-10.1) L Neutrophils (%) (Auto) 71.6 % (45.0-75.0) Lymphocytes (%) (Auto) 18.4 % (20.0-45.0) L Monocytes (%) (Auto) 9.6 % (1.0-10.0) Eosinophils (%) (Auto) 0.0 % (0.0-3.0) Basophils (%) (Auto) 0.4 % (0.0-2.0) Sodium Level 143 MMOL/L (136-145) Potassium Level 3.6 MMOL/L (3.5-5.1) Chloride Level 110 MMOL/L (98-107) H Carbon Dioxide Level 25 MMOL/L (21-32) Anion Gap 8 mmol/L (5-15) Blood Urea Nitrogen 21 mg/dL (7-18) H Creatinine 1.3 MG/DL (0.55-1.30) Estimat Glomerular Filtration Rate mL/min (>60) Glucose Level 155 MG/DL (74-106) H Uric Acid 8.1 MG/DL (2.6-7.2) H Calcium Level 8.1 MG/DL (8.5-10.1) L Phosphorus Level 2.5 MG/DL (2.5-4.9) Magnesium Level 1.6 MG/DL (1.8-2.4) L Total Bilirubin 0.4 MG/DL (0.2-1.0) Direct Bilirubin 0.2 MG/DL (0.0-0.3) Aspartate Amino Transf (AST/SGOT) 31 U/L (15-37) Alanine Aminotransferase (ALT/SGPT) 18 U/L (12-78) Alkaline Phosphatase 165 U/L (46-116) H C-Reactive Protein, Quantitative 11.3 mg/dL (0.00-0.90) H Pro-B-Type Natriuretic Peptide 93396 pg/mL (0-125) H Total Protein 7.6 G/DL (6.4-8.2) Albumin 1.7 G/DL (3.4-5.0) L Height (Feet): 5 Height (Inches): 7.00 Weight (Pounds): 172 Garth Don NP Dec 29, 2017 15:13
[2017-12-29 15:47] VITALS: BP 132/84
--- NOTE | 2017-12-29 15:49 | Cardiology Progress Note ---
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 -Hold aspirin due to bleeding - Continue Statin -Rate control with metoprolol 75 mg TID, can not cardiovert due to inability to anticoagulate and bleeding risk -echocardiogram - reviewed, normal LV function, grade III diastolic dysfunction and moderate pulmonary hypertension -Spot dose diuretics to keep negative and reduce filling pressures, lasix 20 mg daily -Rhythm was atrial flutter vs atrial tachycardia, no anticoagulation needed in this rhythm -monitor BP, slowly introduce medications as needed, concern for polypharmacy and hypotension as culprit given 4 anti hypertensive medications -continue norvasc 5 mg daily for now -supportive care -Hysteroscopy for biopsy to determine prognosis - transfer to [facility] -Left atrial myoxma not seen on TTE, would need KARISSA but would not loom changer, currently it is not encroaching on the mitral valve to be clinically significant -stable for discharge today Subjective Cardiovascular: Reports: no symptoms Respiratory: Reports: no symptoms Gastrointestinal/Abdominal: Reports: no symptoms Genitourinary: Reports: no symptoms Subjective No acute events, vitals stable, vaginal packing removed, pruitt irrigated Patient was not accepted to [facility] Plan for discharge Objective Last 24 Hour Vital Signs Date Time Temp Pulse Resp B/P (MAP) Pulse Ox O2 Delivery O2 Flow Rate FiO2 12/29/17 15:10 166/99 12/29/17 13:46 90 166/99 12/29/17 12:18 97.7 74 18 160/75 (103) 97 97.7 12/29/17 11:50 90 12/29/17 11:23 160/96 12/29/17 10:25 77 152/98 12/29/17 10:02 97.1 12/29/17 09:32 97.1 12/29/17 08:42 97.1 77 18 152/98 (116) 97 97.1 12/29/17 08:15 95 Nasal Cannula 3.0 32 12/29/17 08:15 Nasal Cannula 3.0 32 12/29/17 07:40 81 12/29/17 07:19 Nasal Cannula 2.0 12/29/17 05:59 85 154/107 12/29/17 04:02 89 12/29/17 04:00 97.5 85 17 161/94 (116) 97 97.5 12/29/17 00:00 97.2 86 19 154/89 (110) 100 97.2 12/28/17 23:39 102 12/28/17 21:24 120 161/105 12/28/17 21:00 Nasal Cannula 2.0 12/28/17 20:25 100 12/28/17 20:00 97.9 75 18 161/105 (123) 100 97.9 12/28/17 16:00 80 12/28/17 15:57 98.1 81 20 122/76 (91) 95 98.1 General Appearance: no apparent distress EENT: PERRL/EOMI, normal ENT inspection Neck: non-tender, normal alignment Rhythm: NSR Cardiovascular: normal peripheral pulses Respiratory/Chest: chest wall non-tender, lungs clear Abdomen: normal bowel sounds, non tender Extremities: normal range of motion Neurologic: clinical sales consultant II-XII grossly normal Intake and Output 12/28/17 12/29/17 19:00 07:00 Intake Total 1155 ml 30 ml Output Total 1800 ml Balance 1155 ml -1770 ml Free Water 260 ml IV Total 655 ml Tube Feeding 240 ml 30 ml Output Urine Total 1800 ml # Voids 1 # Bowel Movements 2 Laboratory Tests Test 12/29/17 05:30 White Blood Count 8.3 K/UL (4.8-10.8) Red Blood Count 3.37 M/UL (4.20-5.40) L Hemoglobin 8.5 G/DL (12.0-16.0) L Hematocrit 27.9 % (37.0-47.0) L Mean Corpuscular Volume 83 FL (80-99) Mean Corpuscular Hemoglobin 25.2 PG (27.0-31.0) L Mean Corpuscular Hemoglobin Concent 30.5 G/DL (32.0-36.0) L Red Cell Distribution Width 22.3 % (11.6-14.8) H Platelet Count 245 K/UL (150-450) Mean Platelet Volume 5.7 FL (6.5-10.1) L Neutrophils (%) (Auto) 71.6 % (45.0-75.0) Lymphocytes (%) (Auto) 18.4 % (20.0-45.0) L Monocytes (%) (Auto) 9.6 % (1.0-10.0) Eosinophils (%) (Auto) 0.0 % (0.0-3.0) Basophils (%) (Auto) 0.4 % (0.0-2.0) Sodium Level 143 MMOL/L (136-145) Potassium Level 3.6 MMOL/L (3.5-5.1) Chloride Level 110 MMOL/L (98-107) H Carbon Dioxide Level 25 MMOL/L (21-32) Anion Gap 8 mmol/L (5-15) Blood Urea Nitrogen 21 mg/dL (7-18) H Creatinine 1.3 MG/DL (0.55-1.30) Estimat Glomerular Filtration Rate mL/min (>60) Glucose Level 155 MG/DL (74-106) H Uric Acid 8.1 MG/DL (2.6-7.2) H Calcium Level 8.1 MG/DL (8.5-10.1) L Phosphorus Level 2.5 MG/DL (2.5-4.9) Magnesium Level 1.6 MG/DL (1.8-2.4) L Total Bilirubin 0.4 MG/DL (0.2-1.0) Direct Bilirubin 0.2 MG/DL (0.0-0.3) Aspartate Amino Transf (AST/SGOT) 31 U/L (15-37) Alanine Aminotransferase (ALT/SGPT) 18 U/L (12-78) Alkaline Phosphatase 165 U/L (46-116) H C-Reactive Protein, Quantitative 11.3 mg/dL (0.00-0.90) H Pro-B-Type Natriuretic Peptide 06345 pg/mL (0-125) H Total Protein 7.6 G/DL (6.4-8.2) Albumin 1.7 G/DL (3.4-5.0) L Microbiology Date/Time Source Procedure Growth Status 12/28/17 09:00 Sputum Induced Gram Stain - Final Resulted 12/28/17 09:00 Sputum Induced Sputum Culture Pending Resulted Nikolai Brooks M.D. Dec 29, 2017 15:49
[2017-12-29] MEDS ORDERED: Meropenem 1gm in NS 55ml IVPB SCH (20:00)
[2017-12-30] MEDS ORDERED: Epogen (for non ESRD use) SUBQ SCH (21:00)
== END 2017-12-29 16:55 | DRG 987 ==
LOC: EDBD 19:14 → EMR 20:52 → 2E 21:46 → EDBEDREQ 22:39 → 2E 22:54
PROC: 0HQ1XZZ Repair Face Skin, External Approach (ICD-10-PCS; principal; 2017-12-18)
PROC: 0UBGXZX Excision of Vagina, External Approach, Diagnostic (ICD-10-PCS; 2017-12-25)
PROC: 0T5B8ZZ Destruction of Bladder, Via Natural or Artificial Opening Endoscopic (ICD-10-PCS; 2017-12-25)
DX: I48.91 Unspecified atrial fibrillation (principal); E43 Unspecified severe protein-calorie malnutrition; G92 Toxic encephalopathy; N17.9 Acute kidney failure, unspecified; D62 Acute posthemorrhagic anemia; N13.30 Unspecified hydronephrosis; N39.0 Urinary tract infection, site not specified; E87.0 Hyperosmolality and hypernatremia; I10 Essential (primary) hypertension; F01.50 Vascular dementia, unspecified severity, without behavioral disturbance, psychotic disturbance, mood disturbance, and anxiety; Z68.26 Body mass index [BMI] 26.0-26.9, adult; I48.92 Unspecified atrial flutter; Z93.1 Gastrostomy status; Z86.73 Personal history of transient ischemic attack (TIA), and cerebral infarction without residual deficits; I11.0 Hypertensive heart disease with heart failure; I50.9 Heart failure, unspecified; S01.81XA Laceration without foreign body of other part of head, initial encounter; W18.39XA Other fall on same level, initial encounter; Y92.129 Unspecified place in nursing home as the place of occurrence of the external cause; S00.93XA Contusion of unspecified part of head, initial encounter; N89.8 Other specified noninflammatory disorders of vagina; N32.89 Other specified disorders of bladder; D50.9 Iron deficiency anemia, unspecified; R13.10 Dysphagia, unspecified; F32.9 Major depressive disorder, single episode, unspecified; F41.9 Anxiety disorder, unspecified; N31.9 Neuromuscular dysfunction of bladder, unspecified; R32 Unspecified urinary incontinence; N28.1 Cyst of kidney, acquired; B96.20 Unspecified Escherichia coli [E. coli] as the cause of diseases classified elsewhere; B96.1 Klebsiella pneumoniae [K. pneumoniae] as the cause of diseases classified elsewhere; E87.5 Hyperkalemia; E86.0 Dehydration; E78.5 Hyperlipidemia, unspecified; R91.1 Solitary pulmonary nodule; D15.1 Benign neoplasm of heart
CPT/HCPCS: 36415; 70450; 71045; 71260; 72125; 74177; 76770; 76856; 80048; 80053; 80061; 80076; 80299; 81001; 82105; 82378; 82550; 82607; 82728; 82746; 82784; 82977; 83036; 83540; 83550; 83615; 83690; 83735; 83880; 84100; 84443; 84484; 84550; 85007; 85025; 85610; 85730; 86140; 86300; 86304; 86334; 86850; 86900; 86901; 86920; 87040; 87070; 87081; 87086; 87181; 87205; 87491; 90471; 90715; 93005; 93306; 93970; 94003; 94150; 94664; 94760; 99285; J2405; J2765